=== PATIENT | male | born 1945 | race Caucasian/White ===

== ENCOUNTER → 2020-05-22 10:44 | Outpatient (BNVA) | payer MEDICARE, SELFPAY | PROVIDERS: PCP Internal Medicine; Referring Provider Internal Medicine; Visit Provider Nurse Practitioner Family | DX: I25.10 Atherosclerotic heart disease of native coronary artery without angina pectoris (principal); E78.5 Hyperlipidemia, unspecified; I49.3 Ventricular premature depolarization; Z95.1 Presence of aortocoronary bypass graft; Z79.82 Long term (current) use of aspirin | CPT/HCPCS: 99214 ==

== ENCOUNTER 2020-05-28 08:30 | Outpatient (REF) | payer MEDICARE, SELFPAY ==
[2020-05-28 11:10] LABS: Cholesterol 135 mg/dL; HDL Cholesterol 34 mg/dL; LDL Cholesterol Calculated 81 mg/dl; Triglycerides 102 mg/dL
[2020-05-28 11:18] LABS: Alanine Aminotransferase 32 U/L (0-40); Anion Gap 16 (12-20); Aspartate Amino Transferase 23 U/L (5-37); Blood Urea Nitrogen 21 mg/dL (9-16); Carbon Dioxide 23 mmol/L (22-29); Chloride 104 mmol/L (96-108); Estimated Glomerular Filt Rate > 60; Glucose Random 143 mg/dL (60-115); Potassium 4.6 mmol/l (3.3-5.1); Sodium 138 mmol/L (135-145)
== END 2020-05-28 08:31 | disposition home or self-care (01) ==
LOC: HO.LAB 08:30
PROVIDERS: PCP Internal Medicine; Visit Provider Nurse Practitioner Family
DX: E11.9 Type 2 diabetes mellitus without complications (principal)
CPT/HCPCS: 80048; 80061; 84450; 84460

== ENCOUNTER 2020-06-16 08:45 | Outpatient (REF) | payer MEDICARE, SELFPAY ==
[2020-06-16 12:10] LABS: Alanine Aminotransferase 30 U/L (0-40); Albumin Level 4.2 g/dL (3.5-5.0); Alkaline Phosphatase 87 U/L (39-117); Anion Gap 13 (12-20); Aspartate Amino Transferase 21 U/L (5-37); Bilirubin Total 0.7 mg/dL (0.0-1.0); Blood Urea Nitrogen 26 mg/dL (9-16); Calcium 9.1 mg/dL (8.4-10.2); Carbon Dioxide 24 mmol/L (22-29); Chloride 104 mmol/L (96-108); Cholesterol 137 mg/dL; Estimated Glomerular Filt Rate > 60; Glucose Fasting 170 mg/dL (60-99); HDL Cholesterol 31 mg/dL; LDL Cholesterol Calculated 83 mg/dl; Potassium 4.3 mmol/l (3.3-5.1); Sodium 137 mmol/L (135-145); Triglycerides 115 mg/dL
== END 2020-06-16 08:46 | disposition home or self-care (01) ==
LOC: HO.WFDLDS 08:45
PROVIDERS: Visit Provider Internal Medicine
DX: E11.9 Type 2 diabetes mellitus without complications (principal)
CPT/HCPCS: 80053; 80061

== ENCOUNTER → 2020-10-08 10:36 | Outpatient (BNVA) | payer MEDICARE, SELFPAY | PROVIDERS: PCP Internal Medicine; Visit Provider Surgery | DX: Z85.038 Personal history of other malignant neoplasm of large intestine (principal); Z86.010 Personal history of colon polyps | CPT/HCPCS: 99212 ==

== ENCOUNTER 2020-10-14 09:55 | Outpatient (REF) | payer MEDICARE, SELFPAY ==
[2020-10-14 10:41] LABS: MANUAL DIFF FLAG NO
[2020-10-14 10:53] LABS: Basophils Absolute Auto 0.1 X10*3/uL (0.0-0.2); Basophils Percent Auto 0.5 % (0-2); Eosinophils Absolute Auto 0.2 X10*3/uL (0.0-0.4); Eosinophils Percent Auto 2.1 % (0-4); Hemoglobin 16.5 g/dl (14.0-18.0); Imm Gran Abs Auto 0.03 X10*3/uL (0.00-0.03); Imm Gran Pct Auto 0.3 % (0.0-0.4); Lymphocytes Absolute Auto 1.9 X10*3/uL (1.2-4.9); Lymphocytes Percent Auto 20.3 % (20-40); Mean Corpuscular HGB Conc 33.7 g/dl (31.0-36.0); Mean Corpuscular Hemoglobin 30.6 pg (27.0-33.0); Mean Corpuscular Volume 90.9 fL (80-98); Mean Platelet Volume 10.2 fL (9.4-12.4); Monocytes Absolute Auto 0.8 X10*3/uL (0.1-1.2); Monocytes Percent Auto 8.5 % (2-11); Neutrophils Absolute Auto 6.3 X10*3/uL (2.0-8.3); Neutrophils Percent Auto 68.3 % (45-73); Platelet Count 230 X10*3/uL (160-400); Red Blood Count 5.39 X10*6/uL (4.60-5.80); Red Cell Distribution Width 12.8 % (11.0-16.0); White Blood Count 9.2 X10*3/uL (4.8-10.8)
[2020-10-14 10:56] LABS: Estimated Average Glucose 229 mg/dL; Hemoglobin A1c % 9.6 %
[2020-10-14 11:32] LABS: Alanine Aminotransferase 40 U/L (0-40); Albumin Level 4.2 g/dL (3.5-5.0); Alkaline Phosphatase 102 U/L (39-117); Anion Gap 12 (12-20); Aspartate Amino Transferase 26 U/L (5-37); Bilirubin Total 1.1 mg/dL (0.0-1.0); Blood Urea Nitrogen 19 mg/dL (9-16); Calcium 9.6 mg/dL (8.4-10.2); Carbon Dioxide 28 mmol/L (22-29); Chloride 102 mmol/L (96-108); Cholesterol 159 mg/dL; Estimated Glomerular Filt Rate > 60; Glucose Fasting 179 mg/dL (60-99); HDL Cholesterol 33 mg/dL; LDL Cholesterol Calculated 98 mg/dl; Potassium 5.1 mmol/L (3.3-5.1); Sodium 137 mmol/L (135-145); Total Protein 7.3 g/dL (6.5-8.0); Triglycerides 141 mg/dL
== END 2020-10-14 09:56 | disposition home or self-care (01) ==
LOC: HO.LAB 09:55
PROVIDERS: Absent Provider Internal Medicine Medical Oncology; PCP Internal Medicine; Visit Provider Internal Medicine
DX: C18.9 Malignant neoplasm of colon, unspecified (principal)
CPT/HCPCS: 36415; 80053; 80061; 83036; 85025

== ENCOUNTER 2020-10-31 07:24 | Day surgery (SDC) | payer MEDICARE, SELFPAY ==
[2020-10-27 13:46] VITALS: BMI 34.2
--- NOTE | 2020-10-30 08:49 | HO.ANESPROP2 ---
HPI - Anesthesia Eval Consult details Narrative: 75yo M for Colonoscopy. Signif cardiac hx. Saw Cardiology for routine visit 05/2020. Stable - no anginal sounding symptoms, good activity tolerance. Stable with f/u in 1 year. H/O colectomy with ostomy and reversal PMFSH Active Problems Active Problems: All Active Problems (Updated 10/27/20 @ 13:52 by Aletha Pratt) Diabetes mellitus (Acute) History of colon cancer (Acute) Glucose intolerance (Acute) Hx of CABG (Acute ~1998) HLD (hyperlipidemia) (Acute) PVC (premature ventricular contraction) (Acute) SVT (supraventricular tachycardia) (Acute) CAD (coronary artery disease) (Acute) Past Medical History Medical History CAD (coronary artery disease) Cardiomyopathy COVID-19 COVID-19 vaccine administered Diabetes mellitus Glucose intolerance History of colon cancer HLD (hyperlipidemia) Hx of cataract PVC (premature ventricular contraction) SVT (supraventricular tachycardia) Family History Family History Father Cancer, colon Mother Cancer of breast Cancer of lung Brother Cancer Surgical History Surgical History History of colostomy reversal Hx of CABG (~1998) Hx of cataract surgery Hx of colectomy Hx of colonoscopy (~2005) Hx of colostomy Hx of hernia repair (~2011) Hx of knee surgery Hx of repair of rotator cuff (~2007) Hx of tonsillectomy Social History Social History Alcohol intake: current Alcohol intake frequency: 0-2 drinks per day Smoking Status: Never smoker Meds Allergies Allergy/AdvReac Type Severity Reaction Status Date / Time BERNABE Inhibitors Allergy Unknown DEPRESSION Verified 10/24/20 14:12 [BERNABE INHIBITORS] latex [LATEX] Allergy Unknown RASH Verified 10/24/20 14:12 pravastatin [Pravachol] Allergy Unknown unknown Verified 10/24/20 14:12 rosuvastatin [Crestor] Allergy Unknown unknown Verified 10/24/20 14:12 Beta-Blockers AdvReac Mild DECREASED Verified 10/24/20 14:12 (Beta-Adrenergic Bloc HR, [BETA-BLOCKERS DEPRESSION (BETA-ADRENERGIC BLOC] amoxicillin Allergy Unknown hives, Uncoded 05/29/19 00:00 swollen lips, and hoarseness cephlex: levofloxacin Allergy Unknown hives, Uncoded 05/29/19 00:00 swollen lips, and hoarseness clindomycin Allergy Unknown hives, Uncoded 05/29/19 00:00 swollen lips, and hoarseness Home Medications Medication Instructions Recorded Confirmed Last Taken Type aspirin 81 mg tablet,delayed 81 mg PO DAILY 05/22/20 10/27/20 10/27/20 History release atorvastatin 40 mg tablet See Rx Instructions PO DAILY 05/22/20 10/27/20 Unknown History diphenhydramine HCl 25 mg tablet 25 mg PO TID PRN 05/22/20 10/27/20 Unknown History fluticasone propionate 50 1 spray INTRANASAL DAILY 05/22/20 10/27/20 Unknown History mcg/actuation nasal spray,suspension metformin 1 tab PO BID 10/31/20 10/31/20 Unknown History metformin 1 tab PO BID 10/31/20 10/31/20 10/30/20 History Exam Exam Date and Time: October 30, 2020 0849 Height,Weight and Vital Signs: Height 5 ft 9 in Weight 105.233 kg Pertinent Lab Results Pertinent Lab Results: Laboratory Tests 10/14/20 10/14/20 10:10 10:10 WBC 9.2 Hgb 16.5 Hct 49.0 Plt Count 230 Sodium 137 Potassium 5.1 Chloride 102 Carbon Dioxide 28 BUN 19 H Creatinine 1.14 Narrative Narrative: EKG 05/2020 SR, nonspecific T wave abn, fusion complex, rate 73, QTc 442ms Echo 2018 EF 55-60%, mild aortic calcification, no stenosis, grade I diastolic dysfunction Assessment and Plan Assessment Anesthesia Assessment: Chart Reviewed
[2020-10-31 07:41] VITALS: BP 107/74; PULSE 76; RESP 18; TEMP 36.1; O2SAT 96
[2020-10-31 07:47] LABS: Glucose, Whole Blood 141 mg/dL (60-115)
[2020-10-31] MEDS: Lactated Ringers 1,000 ML 50 ML IV (07:54)
--- NOTE | 2020-10-31 08:55 | HO.ANESPROP2 ---
[facility] Active Problems Active Problems: All Active Problems (Updated 10/30/20 @ 08:51 by Pennie Tripathi) Diabetes mellitus (Acute) History of colon cancer (Acute) Glucose intolerance (Acute) Hx of CABG (Acute ~1998) HLD (hyperlipidemia) (Acute) PVC (premature ventricular contraction) (Acute) SVT (supraventricular tachycardia) (Acute) CAD (coronary artery disease) (Acute) Past Medical History Medical History CAD (coronary artery disease) Cardiomyopathy COVID-19 COVID-19 vaccine administered Diabetes mellitus Glucose intolerance History of colon cancer HLD (hyperlipidemia) Hx of cataract PVC (premature ventricular contraction) SVT (supraventricular tachycardia) Family History Family History Father Cancer, colon Mother Cancer of breast Cancer of lung Brother Cancer Surgical History Surgical History History of colostomy reversal Hx of CABG (~1998) Hx of cataract surgery Hx of colectomy Hx of colonoscopy (~2005) Hx of colostomy Hx of hernia repair (~2011) Hx of knee surgery Hx of repair of rotator cuff (~2007) Hx of tonsillectomy Social History Social History Alcohol intake: current Alcohol intake frequency: 0-2 drinks per day Smoking Status: Never smoker Advance Directives Information Provided: No Meds Allergies Allergy/AdvReac Type Severity Reaction Status Date / Time BERNABE Inhibitors Allergy Unknown DEPRESSION Verified 10/24/20 14:12 [BERNABE INHIBITORS] latex [LATEX] Allergy Unknown RASH Verified 10/24/20 14:12 pravastatin [Pravachol] Allergy Unknown unknown Verified 10/24/20 14:12 rosuvastatin [Crestor] Allergy Unknown unknown Verified 10/24/20 14:12 Beta-Blockers AdvReac Mild DECREASED Verified 10/24/20 14:12 (Beta-Adrenergic Bloc HR, [BETA-BLOCKERS DEPRESSION (BETA-ADRENERGIC BLOC] amoxicillin Allergy Unknown hives, Uncoded 05/29/19 00:00 swollen lips, and hoarseness cephlex: levofloxacin Allergy Unknown hives, Uncoded 05/29/19 00:00 swollen lips, and hoarseness clindomycin Allergy Unknown hives, Uncoded 05/29/19 00:00 swollen lips, and hoarseness Active Medications: Current Medications Generic Name Dose Route Start Last Admin Trade Name Domenico PRN Reason Stop Dose Admin Lactated Ringer's 1,000 mls @ 50 mls/hr 10/31/20 07:00 10/31/20 07:54 Lr IV 50 mls/hr .Q20H TRA Administration Home Medications Medication Instructions Recorded Confirmed Last Taken Type aspirin 81 mg tablet,delayed 81 mg PO DAILY 05/22/20 10/27/20 10/27/20 History release atorvastatin 40 mg tablet See Rx Instructions PO DAILY 05/22/20 10/27/20 Unknown History diphenhydramine HCl 25 mg tablet 25 mg PO TID PRN 05/22/20 10/27/20 Unknown History fluticasone propionate 50 1 spray INTRANASAL DAILY 05/22/20 10/27/20 Unknown History mcg/actuation nasal spray,suspension metformin 1 tab PO BID 10/31/20 10/31/20 Unknown History metformin 1 tab PO BID 10/31/20 10/31/20 10/30/20 History Exam Exam Date and Time: October 31, 2020 0855 Height,Weight and Vital Signs: Height 5 ft 9 in Weight 105.233 kg Last Vital Signs Temp 97 F 10/31/20 07:41 Pulse 76 10/31/20 07:41 Resp 18 10/31/20 07:41 BP 107/74 10/31/20 07:41 Pulse Ox 96 10/31/20 07:41 Pertinent Lab Results Pertinent Lab Results: Laboratory Tests 10/31/20 07:36 POC Glucose 141 H Airway Mallampati Class: II TM Dist: >3cm Neck ROM: Full Assessment and Plan Assessment Anesthesia Assessment: Anesthesia Plan Discussed and Chart Reviewed Final Anesthetic Review NPO: Yes ASA Class: II Final Preanesthetic Review: No Changes in Pt Med Stat, Meds/Allgs Chart Reviewed, Consent Obtained/Reviewed and Anes Risks/Benef Reviewed Patient Risk: Low Procedure Risk: Low Assessment/Block/Sedation in SS: Assess/Block/Sedation-SS Anesthetic Plan Anesthetic Plan: MAC: Disposition: Standard PACU
--- NOTE | 2020-10-31 09:11 | W.PM.OPN ---
Operative Note Operative Note Date of Service: 10/31/20 Narrative: Preop diagnosis: Colon cancer screening Postop diagnosis: 1. Small polyp, about 2 through 3 mm, in the right colon removed with cold forceps 2. Polyp, about 5 mm in the hepatic flexure removed with hot polypectomy snare 3. Diverticulosis of the sigmoid and left colon, mild Procedure: Colonoscopy with polypectomy using cold forceps x1 and polypectomy with hot snare x1 Surgeon: Tony Pedro MD The patient is a 75-year-old male who had a colonoscopy in 2018 for screening but had suboptimal bowel prep then. I had recommended a follow-up colonoscopy in a short interval. He understood the technique of the procedure and was aware of the risks, benefits, and alternatives. He was brought to the operative room placed in left lateral decubitus position under monitored anesthesia care. A surgical time-out was done. A full digital rectal was done. There were no palpable in canal lesions. The tip of the Olympus colonoscope was gently introduced through the anal orifice advanced with insufflation all with cecum. The cecum was intubated the cecum identified by visualization of the ileocecal valve as well as appendiceal orifice. The cecal mucosa was unremarkable. We then carefully withdrew the scope with careful examination of the entire colonic mucosa being done with scope withdrawal. The patient had good bowel prep this time and it was unlikely that any lesion have been missed. There was note of a small polyp about 2-3 mm in the mid part of the right colon. This was removed using cold forceps. There was another polyp about 5 mm in size, at the hepatic flexure. This was removed using hot snare. There was some difficulty encountered with removing this because of the location being in the flexure which caused some difficulty achieving an ideal angle for the snare. However we were able to remove this and this was retrieved.. There was note of mild diverticulitis of left colon sigmoid. The rest of the rectum and anal canal including the shelf were unremarkable and there were no other lesions seen. The scope was then withdrawn completely with dessuflation. The patient tolerated the procedure well. There were no complications noted. Blood loss was less than 1 cc. The patient was transferred to the recovery room with stable vital signs. Depending on the path report, I would recommend another colonoscopy in the next 5 years. This will also depend on his health at that time
[2020-10-31 09:16] VITALS: BP 105/62; PULSE 60; RESP 16; TEMP 36.1; O2SAT 90
--- NOTE | 2020-10-31 09:17 | PM.OP ---
Brief Operative Note Date of Service: 10/31/20 Pre-op diagnosis: Screening colonoscopy Procedure: Polyps and diverticulosis Surgeon: Tony Pedro MD Anesthesia: MAC Estimated blood loss (mL): 1 Pathology: other (Polyps x2) Condition: stable Disposition: PACU
[2020-10-31 09:20] VITALS: O2SAT 95
[2020-10-31 09:31] VITALS: BP 127/89; PULSE 65; RESP 17; TEMP 36.3; O2SAT 95
== END 2020-10-31 10:15 | disposition home or self-care (01) ==
PROVIDERS: PCP Internal Medicine; Visit Provider Surgery
PROC: 0DJD8ZZ Inspection of Lower Intestinal Tract, Via Natural or Artificial Opening Endoscopic (ICD-10-PCS; CPT 45378; principal; 2020-10-31 08:30)
DX: Z12.11 Encounter for screening for malignant neoplasm of colon (principal); Z85.038 Personal history of other malignant neoplasm of large intestine; Z80.0 Family history of malignant neoplasm of digestive organs; Z90.49 Acquired absence of other specified parts of digestive tract; D12.2 Benign neoplasm of ascending colon; D12.3 Benign neoplasm of transverse colon; K57.32 Diverticulitis of large intestine without perforation or abscess without bleeding; I25.10 Atherosclerotic heart disease of native coronary artery without angina pectoris; Z95.1 Presence of aortocoronary bypass graft; E11.9 Type 2 diabetes mellitus without complications; Z79.84 Long term (current) use of oral hypoglycemic drugs; Z79.82 Long term (current) use of aspirin; Z86.16 Personal history of COVID-19; Z91.040 Latex allergy status; Z88.1 Allergy status to other antibiotic agents; Z88.8 Allergy status to other drugs, medicaments and biological substances; Z79.899 Other long term (current) drug therapy
CPT/HCPCS: 45385; 45380; 82947; 88305

== ENCOUNTER → 2020-11-13 09:50 | Outpatient (BNVA) | payer MEDICARE, SELFPAY | PROVIDERS: PCP Internal Medicine; Visit Provider Surgery | DX: D12.6 Benign neoplasm of colon, unspecified (principal); Z85.038 Personal history of other malignant neoplasm of large intestine | CPT/HCPCS: 99212 ==

== ENCOUNTER 2020-12-10 07:53 | Outpatient (REF) | payer MEDICARE, SELFPAY ==
[2020-12-10 11:13] LABS: Estimated Average Glucose 163 mg/dL; Hemoglobin A1c % 7.3 %
[2020-12-10 11:22] LABS: Alanine Aminotransferase 26 U/L (0-40); Albumin Level 4.3 g/dL (3.5-5.0); Alkaline Phosphatase 90 U/L (39-117); Anion Gap 12 (12-20); Aspartate Amino Transferase 19 U/L (5-37); Blood Urea Nitrogen 20 mg/dL (9-16); Calcium 9.6 mg/dL (8.4-10.2); Carbon Dioxide 28 mmol/L (22-29); Chloride 103 mmol/L (96-108); Cholesterol 152 mg/dL; Estimated Glomerular Filt Rate > 60; Glucose Fasting 128 mg/dL (60-99); HDL Cholesterol 32 mg/dL; LDL Cholesterol Calculated 97 mg/dl; Potassium 4.9 mmol/L (3.3-5.1); Sodium 138 mmol/L (135-145); Total Protein 7.2 g/dL (6.5-8.0); Triglycerides 119 mg/dL
== END 2020-12-10 07:54 | disposition home or self-care (01) ==
LOC: HO.WFDLDS 07:53
PROVIDERS: Visit Provider Internal Medicine
DX: E11.9 Type 2 diabetes mellitus without complications (principal)
CPT/HCPCS: 36415; 80053; 80061; 83036

== ENCOUNTER 2021-03-11 07:59 | Outpatient (REF) | payer MEDICARE, SELFPAY ==
[2021-03-11 09:11] LABS: Estimated Average Glucose 148 mg/dL; Hemoglobin A1c % 6.8 %
[2021-03-11 09:43] LABS: Cholesterol 128 mg/dL; Glucose Fasting 109 mg/dL (60-99); HDL Cholesterol 38 mg/dL; LDL Cholesterol Calculated 78 mg/dl; Triglycerides 61 mg/dL
[2021-03-11 10:03] LABS: SARS COV2 IgG Negative (Negative)
== END 2021-03-11 08:00 | disposition home or self-care (01) ==
LOC: HO.LAB 07:59
PROVIDERS: PCP Internal Medicine; Visit Provider Internal Medicine
DX: E11.65 Type 2 diabetes mellitus with hyperglycemia (principal); Z01.84 Encounter for antibody response examination; Z86.16 Personal history of COVID-19
CPT/HCPCS: 36415; 80061; 82947; 83036; 86769

== ENCOUNTER → 2021-05-25 09:21 | Outpatient (BNVA) | payer MEDICARE, SELFPAY | PROVIDERS: PCP Internal Medicine; Referring Provider Internal Medicine; Visit Provider Internal Medicine Cardiovascular Disease | DX: I25.10 Atherosclerotic heart disease of native coronary artery without angina pectoris (principal); I47.1 Supraventricular tachycardia; R06.02 Shortness of breath | CPT/HCPCS: 93005; 99212 ==

== ENCOUNTER → 2021-05-29 09:13 | Outpatient (REF) | payer MEDICARE, SELFPAY ==
--- NOTE | ~2021-05-29 | NM_ITS ---
Myocardial perfusion study Indication: Exertional shortness of breath and chest discomfort to evaluate for myocardial ischemia Technique: The patient was brought in for a Lexiscan perfusion study on 05/29/2021. Patient performed low-level exercise and was injected 0.4 mg of Lexiscan intravenously. Within a minute of injection, 35 mCi of sestamibi was given intravenously. Images were obtained using the SPECT gamma camera interlaced with the gating device. Images were obtained in supine position. Resting perfusion study was performed on 06/02/2021. Patient was administered 35 mCi of sestamibi intravenously at rest. Images were then obtained in supine position. Images obtained with and without CT attenuation. Total DLP 112 mGy-cm. Images were processed with the software and compared side to side in short axis, horizontal long axis and vertical long axis views. Findings: The stress perfusion study showed nonattenuated images show mildly reduced uptake in the basal and mid inferior wall as well as basal inferolateral wall of the LV myocardium. Remainder of the LV myocardium is normally. Attenuation corrected images show mildly reduced uptake in the basal lateral wall of the LV myocardium.. The gated study shows low normal LV systolic function with calculated LVEF of 51%. LV cavity is mildly dilated size. The gated study shows overall normal wall thickening and contraction of all segments except maybe small area of mild hypokinesis of the basal inferior wall. Resting study shows nonattenuated images show normal uptake of radiotracer in all segments of LV myocardium. Gating at rest reveals normal wall motion with ejection fraction at 53%. The findings are consistent with mild intensity basal and mid inferior and basal inferolateral wall reversible defect in the. NM/NM cardiolite stress test Impression: 1. Myocardial perfusion imaging study shows basal and mid inferior and basal inferolateral ischemia with mild intensity 2. Gated LVEF is 51% 3. Transient ischemic dilatation not present EKG is nondiagnostic for ischemia
--- NOTE | 2021-05-29 09:18 | CA_ITS ---
Acquisition Time: 2021-05-29 09:27:23 Total Exercise Time: 00:04:00 Test Indications: Chest Pain, SOB Medications: Protocol: FELECIA Max HR: 088 BPM 60% of Pred: 146 BPM Max BP: 144/070 mmHG Max Work Load: 5.8 METS Exercise stress test with exercise 4 min of Felecia protocol, with moderate shortness of breath, mild pressure left chest and fatigue. Treadmill placed in recovery and slowed to 1 MPH 0% incline for additonal 2.5 min. Testing changed to a pharmacological stress test with lexiscan injection, without anginal symptoms, with PVCs and occassional ventricular cuplets, with normotensive response to injection, with nondiagnostic EKG for ischemia. In recovery he reported lightheadedness and was treated with Aminophyline 75mg IVP with resolution of symptom. Nuclear images pending. Test reviewed with Dr Ferraro. Referred By: Marquise Espinoza Overread By: JOSE CHANG
== END ==
LOC: HO.CARD 09:13
PROVIDERS: PCP Internal Medicine; Visit Provider Internal Medicine Cardiovascular Disease
DX: R07.9 Chest pain, unspecified (principal); R06.02 Shortness of breath
CPT/HCPCS: 78452; 93017; A9500; J0280; J2785

== ENCOUNTER → 2021-06-15 13:03 | Outpatient (BNVA) | payer MEDICARE, SELFPAY | PROVIDERS: PCP Internal Medicine; Referring Provider Internal Medicine; Visit Provider Internal Medicine Cardiovascular Disease | DX: R06.02 Shortness of breath (principal); I25.10 Atherosclerotic heart disease of native coronary artery without angina pectoris; I47.1 Supraventricular tachycardia; Z79.899 Other long term (current) drug therapy | CPT/HCPCS: 99212 ==

== ENCOUNTER 2021-06-18 09:15 | Outpatient (REF) | payer MEDICARE, SELFPAY ==
[2021-06-18 11:32] LABS: INTERNATIONAL NORM RATIO 1.1 (0.9-1.1); Prothrombin Time 12.1 SEC (9.9-13.0)
[2021-06-18 11:40] LABS: Estimated Average Glucose 140 mg/dL; Hemoglobin A1c % 6.5 %
[2021-06-18 11:41] LABS: Hematocrit 48.2 % (42.0-52.0); Hemoglobin 16.2 g/dl (14.0-18.0); Mean Corpuscular HGB Conc 33.6 g/dl (31.0-36.0); Mean Corpuscular Hemoglobin 31.2 pg (27.0-33.0); Mean Corpuscular Volume 92.7 fL (80.0-98.0); Mean Platelet Volume 9.8 fL (9.4-12.4); Platelet Count 237 X10*3/uL (160-400); Red Cell Distribution Width 12.8 % (11.0-16.0); White Blood Count 9.1 X10*3/uL (4.8-10.8)
[2021-06-18 12:00] LABS: Anion Gap 13 (12-20); Blood Urea Nitrogen 18 mg/dL (9-16); Calcium 9.5 mg/dL (8.4-10.2); Carbon Dioxide 24 mmol/L (22-29); Chloride 104 mmol/L (96-108); Estimated Glomerular Filt Rate > 60; Glucose Random 98 mg/dL (60-115); Potassium 4.4 mmol/L (3.3-5.1); Sodium 137 mmol/L (135-145)
== END 2021-06-18 09:16 | disposition home or self-care (01) ==
LOC: HO.LAB 09:15
PROVIDERS: PCP Internal Medicine; Visit Provider Internal Medicine Cardiovascular Disease
DX: E11.9 Type 2 diabetes mellitus without complications (principal); I25.10 Atherosclerotic heart disease of native coronary artery without angina pectoris
CPT/HCPCS: 36415; 80048; 83036; 85027; 85610

== ENCOUNTER → 2021-06-30 08:15 | Outpatient (REF) | payer MEDICARE, SELFPAY ==
--- NOTE | 2021-06-30 08:19 | CA_ITS ---
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 Mildly reduced LV systolic function with impaired relaxation filling pattern with regional wall motion abnormality of the basal inferior inferoseptal holman 2. Mildly dilated left atrium 3. Moderate mitral and calcification with trivial aortic regurgitation 4. Normal RV systolic pressure 5. No gross pericardial effu Findings Left Ventricle Normal left ventricular cavity size. There is normal left ventricular wall thickness. The left ventricular systolic function is mildly decreased. The visually estimated ejection fraction is between 45-50%. Spectral Doppler is indicative of an impaired relaxation filling pattern. Wall Motion Rest Echo Findings The basal inferior, basal inferoseptal, and basal inferolateral segments are hypokinetic. All other scored wall segments showed normal motion. Right Ventricle The right ventricle was not well visualized. Atria The left atrium is mildly dilated. Interatrial shunt cannot be excluded. The right atrium was not well visualized. Aortic Valve There is mild calcification of the aortic valve. There is no aortic valve stenosis. There is trace (trivial) aortic valve regurgitation. Mitral Valve There is mild anterior and moderate posterior mitral leaflet thickening. There is moderate mitral annular calcification. There is trace mitral valve regurgitation. There is no mitral valve stenosis. Pulmonic Valve The pulmonic valve was not well visualized. Tricuspid Valve Likely normal tricuspid valve structure and function. There is mild tricuspid valve regurgitation. The right ventricular systolic pressure is normal. The right ventricular systolic pressure is 19 mmHg. Normal right atrial pressure. There is no evidence of pulmonary hypertension. Great Vessels All visible segments of the aorta are normal in size. The pulmonary artery was not well visualized. Venous The inferior vena cava is normal in size and collapses greater than 50% with inspiration. Pericardium/Pleural There is no evidence of pericardial effusion. Prior Study Comparison Changes noted compared to prior study dated: 10/10/2018. LV systolic function is lower with regional wall motion abnormality Measurements 2D Linear Measurements IVSd: 1.07 0.6-0.9/0.6-1.0 cm LVIDd: 5.44 3.9-5.3/4.2-5.9 cm LVIDd Index: 2.85 2.4-3.2/2.2-3.1 cm/m2 LVIDs: 3.84 2.0-3.6 cm LVPWd: 0.96 0.7-1.1 cm Ao Root: 3.50 2.1-3.5 cm LA Diam: 4.30 2.7-3.8/3.0-4.0 cm LAIDs Index: 2.25 1.5-2.3 cm/m2 LV Mass: 265.73 67-162/88-224 g LV Mass Index: 139.13 43-95/49-115 g/m2 LVOT Diam: 2.30 3.0+(-)1.3 cm 2D Systolic Function EF 4C: 46.50 >55% EF 2C: 43.60 >55% EF BiP: 46.30 >55% Mitral Valve MV Pk E: 0.61 MV PK A: 0.77 MV Decel Time: 319.00 E/A: 0.80 E'Lateral: 9.03 E'Medial: 4.90 E/E' Med: 12.50 E/E' Lat: 6.80 PHT: 93.00 MVA PHT: 2.37 Decel Posey: 1.92 Aortic Valve AoV Pk Otoniel: 1.28 AoV Mn Otoniel: 0.91 AoV VTI: 0.32 AoV Pk Grad: 7.00 Aov Mn Grad: 4.00 NGHIA Cont.VTI: 2.46 LVOT LVOT Pk Otoniel: 0.74 LVOT Mn Otoniel: 0.51 LVOT VTI: 0.19 LVOT Pk Grad: 2.00 LVOT Mn Grad: 1.00 LVOT Diam: 2.30 LVOT Area: 4.15 Diastolic Function MV Pk E: 0.61 MV Pk A: 0.77 E/A: 0.80 E'Medial: 4.90 E/E' Med: 12.50 E' Laterial: 9.03 E/E' Lat: 6.80 Right Ventricle TAPSE (mm): 2.03 Tricuspid Valve TR Pk Otoniel: 2.01 TR Pk Grad: 16.00 RA Press: 3.00 RVSP: 19.00 Great Vessels Aorta Ao Root-2D: 3.50 2.0-3.7 cm Ao Asc: 3.50 2.1-3.4 cm Ao Arch: 3.00 Updated in Other Vendor System with Status of Final Marquise Espinoza MD electronically signed on 06/30/2021 2:53:00 PM with status of Final
== END ==
LOC: HO.CARD 08:15
PROVIDERS: Visit Provider Internal Medicine Cardiovascular Disease
DX: R06.02 Shortness of breath (principal)
CPT/HCPCS: 93306

== ENCOUNTER → 2021-07-16 08:09 | Outpatient (BNVA) | payer MEDICARE, SELFPAY | PROVIDERS: PCP Internal Medicine; Referring Provider Internal Medicine; Visit Provider Internal Medicine Cardiovascular Disease | DX: I47.1 Supraventricular tachycardia (principal); I25.10 Atherosclerotic heart disease of native coronary artery without angina pectoris; R06.02 Shortness of breath | CPT/HCPCS: 99212 ==

== ENCOUNTER → 2021-08-13 12:06 | Outpatient (BNVA) | payer MEDICARE, SELFPAY | PROVIDERS: PCP Internal Medicine; Referring Provider Internal Medicine; Visit Provider Internal Medicine Cardiovascular Disease | DX: I25.10 Atherosclerotic heart disease of native coronary artery without angina pectoris (principal); I47.1 Supraventricular tachycardia | CPT/HCPCS: 99212 ==

== ENCOUNTER 2021-09-08 08:53 | Outpatient (REF) | payer MEDICARE, SELFPAY ==
[2021-09-08 10:35] LABS: Estimated Average Glucose 151 mg/dL; Hemoglobin A1c % 6.9 %
[2021-09-08 11:10] LABS: Anion Gap 13 (12-20); Blood Urea Nitrogen 25 mg/dL (9-16); Calcium 9.3 mg/dL (8.4-10.2); Carbon Dioxide 23 mmol/L (22-29); Chloride 106 mmol/L (96-108); Cholesterol 135 mg/dL; Estimated Glomerular Filt Rate > 60; Glucose Fasting 125 mg/dL (60-99); HDL Cholesterol 35 mg/dL; LDL Cholesterol Calculated 77 mg/dl; Potassium 4.6 mmol/L (3.3-5.1); Sodium 137 mmol/L (135-145); Triglycerides 118 mg/dL
== END 2021-09-08 08:54 | disposition home or self-care (01) ==
LOC: HO.LAB 08:53
PROVIDERS: PCP Internal Medicine; Visit Provider Internal Medicine Cardiovascular Disease
DX: E11.65 Type 2 diabetes mellitus with hyperglycemia (principal)
CPT/HCPCS: 36415; 80048; 80061; 83036

== ENCOUNTER → 2021-10-26 12:12 | Outpatient (BNVA) | payer MEDICARE, SELFPAY | PROVIDERS: PCP Internal Medicine; Referring Provider Internal Medicine; Visit Provider Internal Medicine Cardiovascular Disease | DX: I25.10 Atherosclerotic heart disease of native coronary artery without angina pectoris (principal); I47.1 Supraventricular tachycardia | CPT/HCPCS: 99212 ==

== ENCOUNTER 2021-12-02 08:29 | Outpatient (REF) | payer MEDICARE, SELFPAY ==
[2021-12-02 08:57] LABS: COVID-19 Test Positive (Negative)
== END 2021-12-02 08:30 | disposition home or self-care (01) ==
LOC: HO.LAB 08:29
PROVIDERS: PCP Internal Medicine; Visit Provider Internal Medicine
DX: Z20.822 Contact with and (suspected) exposure to COVID-19 (principal)
CPT/HCPCS: 87635; C9803

== ENCOUNTER 2021-12-28 11:56 | Outpatient (REF) | payer MEDICARE, SELFPAY ==
--- NOTE | ~2021-12-28 | XR_ITS ---
EXAMINATION: XR CHEST CLINICAL INFORMATION: Shortness of breath COMPARISON: Previous chest x-ray most recent June 2017 TECHNIQUE: 2 views of the chest were obtained. FINDINGS: The cardiac and mediastinal contours are stable. There are post-CABG changes. The lungs are clear. There is no pleural effusion or pneumothorax. There are degenerative changes of the spine. There are postsurgical changes to the right shoulder. XR/XR chest 2V IMPRESSION: No evidence for acute disease in the chest.
== END 2021-12-28 11:57 | disposition home or self-care (01) ==
LOC: HO.XRAY 11:56
PROVIDERS: PCP Internal Medicine; Visit Provider Internal Medicine
DX: R06.02 Shortness of breath (principal)
CPT/HCPCS: 71046

== ENCOUNTER 2022-01-11 09:06 | Outpatient (REF) | payer MEDICARE, SELFPAY ==
[2022-01-11 11:30] LABS: Estimated Average Glucose 183 mg/dL
[2022-01-11 11:55] LABS: Cholesterol 113 mg/dL; Glucose Fasting 123 mg/dL (60-99); HDL Cholesterol 30 mg/dL; LDL Cholesterol Calculated 69 mg/dl; Triglycerides 72 mg/dL
== END 2022-01-11 09:07 | disposition home or self-care (01) ==
LOC: HO.WFDLDS 09:06
PROVIDERS: Visit Provider Internal Medicine
DX: Z00.00 Encounter for general adult medical examination without abnormal findings (principal); E11.65 Type 2 diabetes mellitus with hyperglycemia
CPT/HCPCS: 36415; 80061; 82947; 83036

== ENCOUNTER 2022-03-25 09:46 | Outpatient (REF) | payer MEDICARE, SELFPAY ==
[2022-03-25 10:56] LABS: Estimated Average Glucose 157 mg/dL; Hemoglobin A1c % 7.1 %
[2022-03-25 11:06] LABS: Cholesterol 157 mg/dL; Glucose Fasting 118 mg/dL (60-99); HDL Cholesterol 41 mg/dL; LDL Cholesterol Calculated 102 mg/dl; Triglycerides 71 mg/dL
== END 2022-03-25 09:47 | disposition home or self-care (01) ==
LOC: HO.WFDLDS 09:46
PROVIDERS: PCP Internal Medicine; Visit Provider Internal Medicine Cardiovascular Disease
DX: E11.65 Type 2 diabetes mellitus with hyperglycemia (principal)
CPT/HCPCS: 36415; 80061; 82947; 83036

== ENCOUNTER → 2022-05-03 15:01 | Outpatient (BNVA) | payer MEDICARE, SELFPAY | PROVIDERS: PCP Internal Medicine; Referring Provider Internal Medicine; Visit Provider Internal Medicine Cardiovascular Disease | DX: I47.1 Supraventricular tachycardia (principal); I25.10 Atherosclerotic heart disease of native coronary artery without angina pectoris | CPT/HCPCS: 93005; 99212 ==

== ENCOUNTER → 2022-05-12 10:13 | Outpatient (REF) | payer MEDICARE, SELFPAY ==
--- NOTE | 2022-05-12 10:17 | CA_ITS ---
Acquisition Time: 2022-05-12 10:27:44 Total Exercise Time: 00:04:04 Test Indications: OTHER FATIGUE, PVC'S, SVT Medications: Protocol: ARI Max HR: 102 BPM 70% of Pred: 145 BPM Max BP: 168/076 mmHG Max Work Load: 5.8 METS Exercise stress test with exercise 4 min 4 sec of Ari protocol, with moderate sob and request to stop, no chest discomfort, with frequent isolated multifocal PVCs, occassional cuplet and one triplet, with heart rate 68 ( 46% MPHR) at baseline and clarissa to heart rate 98 ( 67% MPHR), with normotensive response to exercise, with nondiagnostic EKG for ischemia due to suboptimal heart rate. In recovery his breathing normalized. Test reviewed with Dr Espinoza Referred By: Marquise Espinoza Overread By: JOSE CHANG
== END ==
LOC: HO.CARD 10:13
PROVIDERS: Visit Provider Internal Medicine Cardiovascular Disease
DX: R53.83 Other fatigue (principal)
CPT/HCPCS: 93017

== ENCOUNTER 2022-05-21 07:38 | Outpatient (REF) | payer MEDICARE, SELFPAY ==
--- NOTE | ~2022-05-21 | CT_ITS ---
EXAMINATION: CT SINUS WITHOUT CONTRAST CLINICAL INFORMATION: 77-year-old with chronic sinusitis. COMPARISON: None TECHNIQUE: Volumetric CT of the paranasal sinuses was done with 2-D multiplanar reformatted reconstructions. This CT examination was performed using dose optimization techniques as appropriate, variously including the following: *Automated exposure control *Adjustment of mA and/or kV according to patient size (this includes techniques or standardized protocols for targeted exams where dose is matched to indication/reason for exam; i.e. extremities or head) *Use of iterative reconstruction technique DLP: 97 mGy-cm FINDINGS: Nasal Cavity: Mild sinusoidal nasal septal deviation is noted. The olfactory recesses are clear. Small lamellar stephen in the left middle turbinate. No discrete nasal cavity masses. Visualized nasopharyngeal soft tissues appear symmetric and normal in attenuation. Maxillary Sinuses: Well-pneumatized with minor mucosal thickening in the left maxillary sinus with bilaterally patent OMCs without air-fluid levels. Bony holman are grossly intact. Ethmoid Sinuses: Largely unopacified, with intact bony holman. Frontal Sinuses: Well-pneumatized and predominantly clear with bilaterally patent frontal recesses and frontonasal drainage. Tiny focus of mucosal thickening in the left frontal recess. Sphenoid Sinus: Asymmetric but well pneumatized with the right side being much larger than the left and minor degrees of mucosal thickening along the anterior holman with bilaterally patent sphenoid ostia and sphenoethmoidal recesses. The carotid canals are posterolateral and covered by bone. Bilateral carotid calcifications of the carotid siphons are noted. Additional Findings: The mastoids and middle ear cavities are unopacified. Limited assessment of the visualized intracranial and intraorbital soft tissue structures demonstrates no acute process within the limitations of the study. Bilateral lens extractions are noted. CT/CT sinus wo IV con IMPRESSION: 1. Mild sinusoidal nasal septal deviation. No nasal cavity masses are identified. 2. Minor degrees of scattered mucosal thickening in the left maxillary and sphenoid sinuses and left frontal recess. Otherwise no significant sinonasal inflammatory disease or soft tissue mass. 3. Atheromatous calcifications of the left vertebral artery and both ICAs.
== END 2022-05-21 07:39 | disposition home or self-care (01) ==
LOC: HO.CT 07:38
PROVIDERS: Visit Provider Internal Medicine
DX: J32.9 Chronic sinusitis, unspecified (principal)
CPT/HCPCS: 70486

== ENCOUNTER → 2022-05-28 08:44 | Outpatient (BNVA) | payer MEDICARE, SELFPAY | PROVIDERS: PCP Internal Medicine; Visit Provider Surgery | DX: I45.89 Other specified conduction disorders (principal); E11.9 Type 2 diabetes mellitus without complications | CPT/HCPCS: 99202 ==

== ENCOUNTER 2022-06-18 10:19 | Inpatient (IN) | payer MEDICARE, SELFPAY ==
[2022-06-14 10:48] VITALS: BMI 32.6
[2022-06-14 11:36] VITALS: BMI 32.5
--- NOTE | 2022-06-16 10:49 | HO.ANESPROP2 ---
Documented by User: Pennie Tripathi NP 06/16/22 10:59 HPI - Anesthesia Eval Consult details Narrative: 77yo M for ?normal sinus rhythm with normal EKG [facility] Active Problems Active Problems: All Active Problems (Updated 05/28/22 @ 11:39 by Warren Browning MD) Chronotropic incompetence (Acute) BPH (benign prostatic hyperplasia) (Acute) History of colon cancer (Acute ~2010) Tubular adenoma of colon (Acute) CAD (coronary artery disease) (Acute) SVT (supraventricular tachycardia) (Acute) PVC (premature ventricular contraction) (Acute) Hypertension (Acute) Hyperlipidemia associated with type 2 diabetes mellitus (Acute) Diabetes mellitus (Acute) SOB (shortness of breath) on exertion (Acute) Cough (Acute) Right leg pain (Acute) Obesity (Acute) Cellulitis of nose (Acute) Past Medical History Medical History BPH (benign prostatic hyperplasia) CAD (coronary artery disease) Cardiomyopathy COVID-19 vaccine administered Diabetes mellitus History of colon cancer (~2010) History of COVID-19 Hyperlipidemia associated with type 2 diabetes mellitus Hypertension Obesity PVC (premature ventricular contraction) SVT (supraventricular tachycardia) Tubular adenoma of colon Family History Family History Father Cancer, colon Mother Cancer of breast Cancer of lung Sister Cancer Surgical History Surgical History History of cardiac cath History of cataract surgery (~2013) History of colonoscopy History of colostomy (~2010) History of colostomy reversal (~2011) History of coronary artery bypass graft x 3 (~1998) History of hernia repair (~2012) History of left knee surgery (~2003) History of partial colectomy (~2011) History of repair of rotator cuff History of right knee surgery History of tonsillectomy Social History Social History Housing: House Are you a primary dog day care attendant to a significant other at home: No Do you presently have visiting nurse or other home services: No Alcohol intake: current Alcohol intake frequency: 0-2 drinks per day Patient Tobacco Use Status: Never used Tobacco e-Cigarette/Vaping Use: Never Used Second Hand Smoke Exposure: No Have you been hit, kicked, punched, or otherwise hurt by someone within the past year? If so, by whom?: No Are you DNR?: No Advance Directives: No Advance Directives Information Provided: Yes Advance Directives on File: No Recently lost weight without trying: No Nutrition Risks: Surgical patient >75years Poor oral hygiene: No (partial lower) service: No Current occupational status: retired Cognitive needs: No Hearing needs: No Vision needs: No Meds Allergies Allergy/AdvReac Type Severity Reaction Status Date / Time BERNABE Inhibitors Allergy Intermediate DEPRESSION Verified 06/18/22 06:20 [BERNABE INHIBITORS] latex [LATEX] Allergy Intermediate RASH Verified 06/18/22 06:20 terazosin Allergy Intermediate hives, Verified 06/18/22 06:20 swollen lips and hoarseness pravastatin [Pravachol] Allergy Unknown unknown Verified 06/18/22 06:20 bee pollen [bee stings] AdvReac Severe Anaphylaxis Verified 06/18/22 06:20 Beta-Blockers AdvReac Intermediate DECREASED Verified 06/18/22 06:20 (Beta-Adrenergic Bloc HR, [BETA-BLOCKERS DEPRESSION (BETA-ADRENERGIC BLOC] amoxicillin Allergy Intermediate hives, Uncoded 06/18/22 06:20 swollen lips, and hoarseness cephlex: levofloxacin Allergy Intermediate hives, Uncoded 06/18/22 06:20 swollen lips, and hoarseness clindomycin Allergy Intermediate hives, Uncoded 06/18/22 06:20 swollen lips, and hoarseness Home Medications Medication Instructions Recorded Confirmed Last Taken Type aspirin 81 mg tablet,delayed 81 mg PO DAILY 05/22/20 06/14/22 06/16/22 History release (Adult Low Dose Aspirin) diphenhydramine HCl 25 mg tablet 25 mg PO TID PRN Anxiety 05/22/20 06/18/22 Unknown History (Benadryl Allergy) fluticasone propionate 50 1 spray intranasal DAILY 05/22/20 06/14/22 Unknown History mcg/actuation nasal spray,suspension (Flonase Allergy Relief) nitroglycerin 0.4 mg sublingual 0.4 mg sublingual Q5M PRN Chest 05/03/22 06/14/22 Unknown History tablet Pain Epi E-Z Pen 06/14/22 06/14/22 Unknown History finasteride 5 mg tablet 1 tab PO DAILY 06/14/22 06/14/22 Unknown History Exam Exam Date and Time: June 16, 2022 1049 Height,Weight and Vital Signs: Height 5 ft 9 in Weight 99.79 kg Narrative Narrative: EKG 04/2022 ?normal sinus rhythm with normal EKG Exercise Stress 05/2022 Protocol: ARI ? Max HR: 102 BPM? 70% of? Pred: 145 BPM Max BP: 168/076 mmHG Max Work Load: 5.8 METS ? Exercise stress test with exercise 4 min 4 sec of Ari protocol, with moderate ?sob and request to stop, no chest discomfort, with frequent isolated multifocal ?PVCs, occassional cuplet and one triplet, with heart rate 68 ( 46% MPHR) at ?baseline and clarissa to heart rate 98 ( 67% MPHR), with normotensive response to ?exercise, with nondiagnostic EKG for ischemia due to suboptimal heart rate. In ?recovery his breathing normalized. Test reviewed with Dr Espinoza ECHO 06/2021 Conclusions: -? 1. Mildly reduced LV systolic function with impaired? relaxation filling pattern with regional wall motion abnormality of the basal inferior inferoseptal holman ? 2. Mildly dilated left atrium? 3. Moderate mitral and calcification with? trivial aortic? regurgitation? 4.? Normal RV systolic pressure? 5. No gross pericardial effu ? ?? Assessment and Plan Assessment Anesthesia Assessment: Chart Reviewed Documented by User: Renita Askew MD 06/18/22 09:16 [facility] Past Medical History Medical History BPH (benign prostatic hyperplasia) CAD (coronary artery disease) Cardiomyopathy COVID-19 vaccine administered Diabetes mellitus History of colon cancer (~2010) History of COVID-19 Hyperlipidemia associated with type 2 diabetes mellitus Hypertension Obesity PVC (premature ventricular contraction) SVT (supraventricular tachycardia) Tubular adenoma of colon Functional capacity: independent ambulation Family History Family History Father Cancer, colon Mother Cancer of breast Cancer of lung Sister Cancer Family history of problems with anesthesia: No Surgical History Surgical History History of cardiac cath History of cataract surgery (~2013) History of colonoscopy History of colostomy (~2010) History of colostomy reversal (~2011) History of coronary artery bypass graft x 3 (~1998) History of hernia repair (~2012) History of left knee surgery (~2003) History of partial colectomy (~2011) History of repair of rotator cuff History of right knee surgery History of tonsillectomy History of Problems with Anesthesia: No Social History Social History Housing: House Are you a primary dog day care attendant to a significant other at home: No Do you presently have visiting nurse or other home services: No Alcohol intake: current Alcohol intake frequency: 0-2 drinks per day Patient Tobacco Use Status: Never used Tobacco e-Cigarette/Vaping Use: Never Used Second Hand Smoke Exposure: No Have you been hit, kicked, punched, or otherwise hurt by someone within the past year? If so, by whom?: No Are you DNR?: No Advance Directives: No Advance Directives Information Provided: Yes Advance Directives on File: No Recently lost weight without trying: No Nutrition Risks: Surgical patient >75years Poor oral hygiene: No (partial lower) service: No Current occupational status: retired Cognitive needs: No Hearing needs: No Vision needs: No Meds Allergies Allergy/AdvReac Type Severity Reaction Status Date / Time BERNABE Inhibitors Allergy Intermediate DEPRESSION Verified 06/18/22 06:20 [BERNABE INHIBITORS] latex [LATEX] Allergy Intermediate RASH Verified 06/18/22 06:20 terazosin Allergy Intermediate hives, Verified 06/18/22 06:20 swollen lips and hoarseness pravastatin [Pravachol] Allergy Unknown unknown Verified 06/18/22 06:20 bee pollen [bee stings] AdvReac Severe Anaphylaxis Verified 06/18/22 06:20 Beta-Blockers AdvReac Intermediate DECREASED Verified 06/18/22 06:20 (Beta-Adrenergic Bloc HR, [BETA-BLOCKERS DEPRESSION (BETA-ADRENERGIC BLOC] amoxicillin Allergy Intermediate hives, Uncoded 06/18/22 06:20 swollen lips, and hoarseness cephlex: levofloxacin Allergy Intermediate hives, Uncoded 06/18/22 06:20 swollen lips, and hoarseness clindomycin Allergy Intermediate hives, Uncoded 06/18/22 06:20 swollen lips, and hoarseness Home Medications Medication Instructions Recorded Confirmed Last Taken Type aspirin 81 mg tablet,delayed 81 mg PO DAILY 05/22/20 06/14/22 06/16/22 History release (Adult Low Dose Aspirin) diphenhydramine HCl 25 mg tablet 25 mg PO TID PRN Anxiety 05/22/20 06/18/22 Unknown History (Benadryl Allergy) fluticasone propionate 50 1 spray intranasal DAILY 05/22/20 06/14/22 Unknown History mcg/actuation nasal spray,suspension (Flonase Allergy Relief) nitroglycerin 0.4 mg sublingual 0.4 mg sublingual Q5M PRN Chest 05/03/22 06/14/22 Unknown History tablet Pain Epi E-Z Pen 06/14/22 06/14/22 Unknown History finasteride 5 mg tablet 1 tab PO DAILY 06/14/22 06/14/22 Unknown History Exam Airway Mallampati Class: II TM Dist: >3cm Neck ROM: Full Denture: Upper and Lower Heart: RRR Lungs: CTA Assessment and Plan Final Anesthetic Review Family History of Problems with Anesthesia: No History of Problems with Anesthesia: No ASA Class: III Final Preanesthetic Review: No Changes in Pt Med Stat, Meds/Allgs Chart Reviewed and Consent Obtained/Reviewed Patient Risk: Intermediate Procedure Risk: Low Anesthetic Plan Anesthetic Plan: GA Disposition: Standard PACU
[2022-06-18] VITALS (17 sets, daily range): BP systolic 132–176; BP diastolic 74–97; PULSE 60–69; RESP 12–18; TEMP 36.1–36.7; O2SAT 93–99
--- NOTE | ~2022-06-18 | FL_ITS ---
EXAMINATION: XR FLUOROSCOPY WITH IMAGES CLINICAL INFORMATION: Pacemaker insertion COMPARISON: None. TECHNIQUE: Fluoroscopy Supervised By: Nam parnell Fluoroscopy Time: 3.7 minutes. Cumulative Dose: 97.0 mGy. DAP: 23.8 Gycm2. Images: 2. FINDINGS: There are 2 digital images available revealing dual pacer electrodes in right atrium and right ventricle. There are median sternotomy sutures from previous intervention. FL/FL guidance in OR IMPRESSION: Fluoroscopy guidance was provided to referring physician for pacemaker insertion.
--- NOTE | ~2022-06-18 | XR_ITS ---
EXAMINATION: XR CHEST CLINICAL INFORMATION: Pacemaker COMPARISON: Previous chest x-ray most recent December 2021 TECHNIQUE: Frontal view of the chest was obtained. FINDINGS: The cardiac silhouette does not appear enlarged. There are post-CABG changes. There is a new left subclavian dual chamber pacemaker in satisfactory position. There is subsegmental atelectasis at the left lung base. The lungs are otherwise clear. No pleural effusion or pneumothorax. Postsurgical changes to the right shoulder. XR/XR chest 1V IMPRESSION: Satisfactory position of new left subclavian dual chamber pacemaker. No pneumothorax.
[2022-06-18 06:41] LABS: COVID-19 Test Negative (Negative); IDNOW Serial# 55D5AD1C
[2022-06-18 06:51] LABS: Glucose, Whole Blood 141 mg/dL (60-115)
[2022-06-18] MEDS: Lactated Ringers 1,000 ML 50 ML IVCONT (06:55)
--- NOTE | 2022-06-18 07:07 | MHC.SHP ---
Pre-Procedural Eval Section A Date of Service: 06/18/22 The patient is an INPATIENT: No The History & Physical has been completed within 30 days and I have reviewed it.: Yes Section B Chief Complaint: Other specified conduction disorders Allergies: Allergies Allergy/AdvReac Type Severity Reaction Status Date / Time BERNABE Inhibitors Allergy Intermediate DEPRESSION Verified 06/18/22 06:20 [BERNABE INHIBITORS] latex [LATEX] Allergy Intermediate RASH Verified 06/18/22 06:20 terazosin Allergy Intermediate hives, Verified 06/18/22 06:20 swollen lips and hoarseness pravastatin [Pravachol] Allergy Unknown unknown Verified 06/18/22 06:20 bee pollen [bee stings] AdvReac Severe Anaphylaxis Verified 06/18/22 06:20 Beta-Blockers AdvReac Intermediate DECREASED Verified 06/18/22 06:20 (Beta-Adrenergic Bloc HR, [BETA-BLOCKERS DEPRESSION (BETA-ADRENERGIC BLOC] amoxicillin Allergy Intermediate hives, Uncoded 06/18/22 06:20 swollen lips, and hoarseness cephlex: levofloxacin Allergy Intermediate hives, Uncoded 06/18/22 06:20 swollen lips, and hoarseness clindomycin Allergy Intermediate hives, Uncoded 06/18/22 06:20 swollen lips, and hoarseness Plan I have reviewed the history and physical and performed a pertinent physical examination on my patient. No changes have occurred unless specified. Plan for dc ppm.
[2022-06-18] MEDS: vancomycin HCL 1,500 MG in 0.9 % Sodium Chloride 500 ML 333.33 MG IV (07:30)
--- NOTE | 2022-06-18 09:59 | W.PM.OPN ---
Operative Note Operative Note Date of Service: 06/18/22 Narrative: Preoperative diagnosis: Sick sinus syndrome, chronotropic incompetence Postoperative diagnosis: Same Operation: Placement of dual-chamber permanent pacemaker with fluoroscopic guidance Surgeon: Warren Browning MD Specimens: None EBL: 5 cc Operative findings: The pacemaker placed was [employer] pacemaker serial [id number]. The atrial lead was a [employer] serial number [id number]. The ventricular lead was a [employer] serial number [id number]. Parameters in the right atrial lead sensing was 15 mV with a threshold of 0.5 volts at 0.4 milliseconds and an impedance of 510 Ohms. In the ventricular lead threshold was 0.5 volts at 0.4 milliseconds with an impedance of 750 Ohms and an R-wave of 10.3 mV. Patient tolerated procedure well. Operation in detail: The patient was brought to the operating room, placed supine on the operating room table, anesthesia moderate of ices were placed, and the patient was gently sedated. A time-out was performed confirming the correct patient site and procedure. After injection of local anesthetic, a 3 cm incision was made in the left infraclavicular region and carried down to the pectoralis fascia with electrocautery. The patient was then placed in Trendelenburg and an 18 gauge needle was used to access subclavian vein on the 1st take. And a wire was placed into the right atrium under fluoroscopic guidance. A 2nd 18 gauge needle was then used to access the subclavian vein again on the 1st ache and a wire was placed under fluoroscopic guidance and parked in the right atrium. The patient was then taken out of Trendelenburg and a pocket was formed using blunt and electrocautery dissection. The 1st 6 Turkmen sheath was then placed over wire and the wire and dilator were removed. The ventricular lead was then placed through the sheath and parked in the right atrium and the peel-away sheath was removed. After several attempts using a curved stylet we were eventually able to access the right ventricle and the tip of the lead was positioned at the right ventricular apex. The endocardial screw was deployed and the lead was tested with excellent parameters above. This lead was then secured with silk sutures to the pectoralis fascia. The 2nd 6 Turkmen sheath was then placed over the 2nd wire and a wire dilator removed. The atrial lead was then placed and parked in the right atrium. AJ stylet was used to position this in the right atrial appendage. The endocardial screws deployed and the lead was tested with excellent parameters above. This lead was also secured with silk sutures to the pectoralis fascia. The pocket was then copiously irrigated with antibiotic solution. The leads were then placed in their appropriate receptacles and the pacemaker was tested again with excellent parameters. The generator and excess lead was then placed into the pocket. The wound was then closed with a deep running 3-0 Vicryl suture followed by running 3-0 Vicryl suture and Dermabond glue in the skin. The patient was then brought back to The PACU in stable condition.
--- NOTE | 2022-06-18 10:49 | PHA.MEDREC ---
Pharmacy Consult ? Medication Reconciliation Pharmacy has reviewed the medication reconciliation completed by nursing. Shadia Moeller, DavonD
[2022-06-18] MEDS: Acetaminophen 1,000 MG/100 ML PIGGYBACK 400 MG IV (11:55)
[2022-06-18] MEDS: Acetaminophen 325 MG TABLET 650 MG PO ×2 (15:49→21:20)
[2022-06-18] MEDS: Heparin Sodium,Porcine 5,000 UNIT/ML VIAL 5000 UNIT SUBCUT (20:06)
[2022-06-18] MEDS: 0.9 % Sodium Chloride Flush 3 ML SYRINGE IVFLUSH (20:06)
[2022-06-19] VITALS: BP 158/100; PULSE 64; RESP 18; TEMP 36.8; O2SAT 96
[2022-06-19] MEDS: Heparin Sodium,Porcine 5,000 UNIT/ML VIAL 5000 UNIT SUBCUT ×2 (02:21→10:41)
[2022-06-19] MEDS: Acetaminophen 325 MG TABLET 650 MG PO (02:22)
[2022-06-19 04:00] VITALS: BP 133/82; PULSE 66; RESP 18; TEMP 37.1; O2SAT 98
[2022-06-19 08:00] VITALS: BP 148/83; PULSE 67; RESP 19; TEMP 36.3; O2SAT 96
[2022-06-19 09:16] VITALS: O2SAT 96
[2022-06-19 09:34] LABS: Creatinine Clr Calc Pharmacy 92.9; Estimated Glomerular Filt Rate > 60
--- NOTE | 2022-06-19 10:28 | HO.POSTANES ---
Post Anesthesia Evaluation Post Anesthesia Evaluation Vital Signs: Vital Signs Temp Pulse Resp BP Pulse Ox O2 Del Method 06/19/22 08:00 97.3 F 67 19 148/83 H 96 Room Air 06/19/22 04:00 98.8 F 66 18 133/82 98 Room Air 06/19/22 00:00 98.2 F 64 18 158/100 H 96 Room Air Anesthesia: General LMA Mental Status: Awake Pain Control: Satisfactory Nausea/Vomiting: None Hydration: Adequate Anesthesia-Related Issues: No Anes. Related Issues
[2022-06-19] MEDS: metFORMIN HCl ER 500 MG TAB.ER.24H PO (10:38)
[2022-06-19] MEDS: Bisoprolol Fumarate 5 MG TABLET 2.5 MG PO (10:39)
[2022-06-19] MEDS: Isosorbide Mononitrate 60 MG TAB.ER.24H PO (10:39)
[2022-06-19] MEDS: Finasteride 5 MG TABLET PO (10:39)
[2022-06-19] MEDS: 0.9 % Sodium Chloride Flush 3 ML SYRINGE IVFLUSH (10:42)
[2022-06-19 12:00] VITALS: BP 116/80; PULSE 74; RESP 18; TEMP 36.2; O2SAT 93
--- NOTE | 2022-06-19 12:13 | PM.CNCAR ---
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 He is here because he had chronotropic incompetence and fatigue and concern for bradycardia. Also was having SVT episodes in the past. He underwent pacemaker placement by Dr. Arias today. He was being discharged when the telemetry nurse pointed out that he was in SVT. Patient was seen in the room and was just feeling little nervous. He had no chest discomfort breathing problem. His heart rate was 150 beats per minute. He tried vagal maneuvers including Valsalva and the I tried carotid massage but SVT did not break. Our plan was to give him adenosine but he spontaneously broke out of SVT. He is saying he had similar episodes before. Overall back to normal and denying any concerning symptoms currently. [facility] Past Medical History Medical History BPH (benign prostatic hyperplasia) CAD (coronary artery disease) Cardiomyopathy COVID-19 vaccine administered Diabetes mellitus History of colon cancer (~2010) History of COVID-19 Hyperlipidemia associated with type 2 diabetes mellitus Hypertension Obesity PVC (premature ventricular contraction) SVT (supraventricular tachycardia) Tubular adenoma of colon Functional capacity: independent ambulation Family History Family History Father Cancer, colon Mother Cancer of breast Cancer of lung Sister Cancer Surgical History Surgical History History of cardiac cath History of cataract surgery (~2013) History of colonoscopy History of colostomy (~2010) History of colostomy reversal (~2011) History of coronary artery bypass graft x 3 (~1998) History of hernia repair (~2012) History of left knee surgery (~2003) History of partial colectomy (~2011) History of repair of rotator cuff History of right knee surgery History of tonsillectomy Social History Social History Household Members: Spouse Housing: House Are you a primary special needs caregiver to a significant other at home: No Do you presently have visiting nurse or other home services: No Alcohol intake: current Alcohol intake frequency: 0-2 drinks per day Patient Tobacco Use Status: Never used Tobacco e-Cigarette/Vaping Use: Never Used Second Hand Smoke Exposure: No Use of substances other than those prescribed or required for medical reasons: No Currently Displaying Signs/Symptoms of Drug Intoxication Withdrawal: No Have you been hit, kicked, punched, or otherwise hurt by someone within the past year? If so, by whom?: No Do you feel safe in your current relationship?: Yes Is there a partner from a previous relationship who is making you feel unsafe now?: No Are you made to feel afraid or neglected: No Are you DNR?: No Advance Directives: No Advance Directives Information Provided: Yes Advance Directives on File: No Do you have thoughts of harming others: None Do you have a plan to hurt others: No Plan Recently lost weight without trying: No Nutrition Risks: No Nutritional Risk Poor oral hygiene: No (partial lower) service: No Current occupational status: retired Cognitive needs: No Hearing needs: No Vision needs: No Meds Allergies Allergy/AdvReac Type Severity Reaction Status Date / Time BERNABE Inhibitors Allergy Intermediate DEPRESSION Verified 06/18/22 06:20 [BERNABE INHIBITORS] latex [LATEX] Allergy Intermediate RASH Verified 06/18/22 06:20 terazosin Allergy Intermediate hives, Verified 06/18/22 06:20 swollen lips and hoarseness pravastatin [Pravachol] Allergy Unknown unknown Verified 06/18/22 06:20 bee pollen [bee stings] AdvReac Severe Anaphylaxis Verified 06/18/22 06:20 Beta-Blockers AdvReac Intermediate DECREASED Verified 06/18/22 06:20 (Beta-Adrenergic Bloc HR, [BETA-BLOCKERS DEPRESSION (BETA-ADRENERGIC BLOC] amoxicillin Allergy Intermediate hives, Uncoded 06/18/22 06:20 swollen lips, and hoarseness cephlex: levofloxacin Allergy Intermediate hives, Uncoded 06/18/22 06:20 swollen lips, and hoarseness clindomycin Allergy Intermediate hives, Uncoded 06/18/22 06:20 swollen lips, and hoarseness Active Medications: Current Medications Acetaminophen (Acetaminophen 325 Mg Tablet) 650 mg PO Q6H PRN PRN Reason: Pain, Mild (Pain Scale 1-3) Last Admin: 06/19/22 02:22 Dose: 650 mg Albuterol Sulfate (Albuterol Sulfate 90 Mcg 8 Gm Inhaler) 2 puff INHALE RQ4H PRN PRN Reason: shortness of breath or wheezing Bisoprolol Fumarate (Bisoprolol Fumarate 5 Mg Tablet) 2.5 mg PO DAILY [facility] Last Admin: 06/19/22 10:39 Dose: 2.5 mg Diphenhydramine HCl (Diphenhydramine Hcl 25 Mg Capsule) 25 mg PO TID PRN PRN Reason: Anxiety Finasteride (Finasteride 5 Mg Tablet) 5 mg PO DAILY [facility] Last Admin: 06/19/22 10:39 Dose: 5 mg Fluticasone Propionate (Fluticasone Propionate Nasal 16 Gm [place]) 1 spray NOSTRIL-B DAILY [facility] Last Admin: 06/19/22 10:42 Dose: Not Given Heparin Sodium (Porcine) (Heparin Sodium,Porcine 5,000 Unit/Ml Vial) 5,000 unit SUBCUT Q8H [facility] Last Admin: 06/19/22 10:41 Dose: 5,000 unit Lactated Ringer's (Lr) 1,000 mls @ 50 mls/hr IVCONT .Q20H [facility] Last Infusion: 06/18/22 18:08 Dose: Infused Isosorbide Mononitrate (Isosorbide Mononitrate 60 Mg Tab.Er.24h) 60 mg PO DAILY [facility]; Protocol Last Admin: 06/19/22 10:39 Dose: 60 mg Metformin HCl (Metformin Hcl Er 500 Mg Tab.Er.24h) 500 mg PO DAILY [facility] Last Admin: 06/19/22 10:38 Dose: 500 mg Ondansetron HCl (Ondansetron Hcl 4 Mg/2 Ml Vial) 4 mg IVPUSH ONCE PRN PRN Reason: Nausea and Vomiting Sodium Chloride (0.9 % Sodium Chloride Flush 3 Ml Syringe) 3 ml IVFLUSH QSHIFT [facility] Last Admin: 06/19/22 10:42 Dose: 3 ml Home Medications Medication Instructions Recorded Confirmed Last Taken Type aspirin 81 mg tablet,delayed 81 mg PO DAILY 05/22/20 06/14/22 06/16/22 History release (Adult Low Dose Aspirin) diphenhydramine HCl 25 mg tablet 25 mg PO TID PRN Anxiety 05/22/20 06/18/22 Unknown History (Benadryl Allergy) fluticasone propionate 50 1 spray intranasal DAILY 05/22/20 06/14/22 Unknown History mcg/actuation nasal spray,suspension (Flonase Allergy Relief) nitroglycerin 0.4 mg sublingual 0.4 mg sublingual Q5M PRN Chest 05/03/22 06/14/22 Unknown History tablet Pain finasteride 5 mg tablet 1 tab PO DAILY 06/14/22 06/14/22 Unknown History Physical Exam Vital Signs: Vital Signs: Last Vital Signs Temp 97.3 F 06/19/22 08:00 Pulse 67 06/19/22 08:00 Resp 19 06/19/22 08:00 BP 148/83 H 06/19/22 08:00 Pulse Ox 96 06/19/22 08:00 O2 Del Method 06/19/22 08:00 O2 Flow Rate 4 06/18/22 11:11 BMI result Body Mass Index 32.5 GENERAL APPEARANCE: in no acute distress, pleasant. NECK: no carotid bruit, no jugular venous distention. SKIN: no suspicious lesions, warm and dry. HEART: no murmurs, regular rate and rhythm. LUNGS: clear to auscultation bilaterally. ABDOMEN: soft, nontender. EXTREMITIES: no edema. PERIPHERAL PULSES: equal. NEUROLOGIC: No gross deficits, AAO X 3 Objective Labs and Meds Result diagrams: 06/19/22 09:07 Lab results: Laboratory Results - last 24 hr 06/19/22 09:07 Creatinine 0.80 Estim Creat Clear Calc 92.9 Estimated GFR > 60 Assessment and Plan (1) SVT (supraventricular tachycardia): Status: Acute Plan [age] gentleman was admitted for permanent pacemaker placement and was due to go home and developed supraventricular tachycardia. He has known history of SVT by his report. Asymptomatic currently. He has spontaneously broken out of SVT but vagal maneuvers did not work. Increasing bisoprolol to 5 mg daily. He had follow-up with Dr. Espinoza and would have further discussions for SVT management including ablation. Thank you for allowing me to participate in the care of your patient. Please feel free to contact me if you have any questions. Procedures Date of Service Date of Service: 06/19/22
--- NOTE | 2022-06-19 12:20 | P.DS_ITS ---
DS: Providers Provider Date of Service: 06/19/22 Date of admission: 06/18/22 10:19 Date of discharge: 06/19/22 Primary care physician: Mckinley Choi MD Consults: 06/18/22 10:31 Consult to Hospitalist Routine Consulting Provider: Hospitalist Reason For Exam: Assistance with medical management DS: Diagnosis Discharge Diagnosis (1) SVT (supraventricular tachycardia): Status: Acute (2) Chronotropic incompetence: Status: Acute (3) Bradycardia: Status: Acute DS: Summary Hospital Course Hospital Course: Mr. Ortiz was taken to the operating room with Dr. Browning on an elective bases on 06/18/2022 where he had a dual chamber [employer]je pacemaker insertion. Postoperatively he was transferred to the telemetry floor where he did well, however he did have one episode of SVT with HRs in 150s that broke spontaneously. Dr. Torre from cardiology evaluated the patient and recommended increasing the patient's Bisoprolol to 5mg daily and to followup with his outpatient cardiology, Dr. Espinoza. Otherwise, his pacemaker was interrogated prior to discharge with normal values. Patient had no complaints other than some flutters during the SVT episode and no other symptoms. After discussion with Dr. torre and Dr. Browning it was determined the patient was stable to be discharged home. Time Spent with Patient Time attestation: Total time spent providing and/or coordinating discharge services: Discharge coordination time: Greater than 30 minutes Quality: Safe Use of Opioids Does Pt have an Active Cancer Diagnosis on the Problem List?: No Quality: Stroke Does the patient have a stroke diagnosis?: No Physical Exam Vital Signs: Vital Signs: Last Vital Signs Temp 97.2 F 06/19/22 12:00 Pulse 74 06/19/22 12:00 Resp 18 06/19/22 12:00 BP 116/80 06/19/22 12:00 Pulse Ox 93 06/19/22 12:00 O2 Del Method 06/19/22 12:00 O2 Flow Rate 4 06/18/22 11:11 BMI result Body Mass Index 32.5 General: No acute distress, resting comfortably in recliner chair, well developed Head: Normocephalic, atraumatic, symmetric Eyes: Sclera anicteric, eyelids without edema or erythema, +EOMS intact ENT: Oral mucosa and tongue are moist without lesions or exudates Neck: Soft, supple, symmetric, trachea midline, no crepitus Cardiovascular: Regular rate and rhythm, no murmur/rubs/gallops, BUE and BLE without edema, no calf tenderness bilaterally. L infraclavicular pacemaker pocket with some bruising, but no palpable hematoma or erythema. Expected slight TTP. Respiratory: Lungs CTA B, breathing nonlabored, speaking in full sentences, on room air. Gastrointestinal: Soft, non-tender, non-distended, +normoactive bowel sounds. Skin: Warm and dry throughout, no rashes Neurological: Alert and oriented x 3, no focal neurological deficit noted Psychiatric: no agitation, appropriate affect DS: Data Data Completed and Pending Labs on day of discharge: Laboratory Results - last 24 hr 06/19/22 09:07 Creatinine 0.80 Estim Creat Clear Calc 92.9 Estimated GFR > 60 Discharge Plan Discharge Anticipated Discharge Date/Time: 06/19/22 12:14 Patient Disposition: Home, Self-Care Discharge Diagnosis: sick sinus syndrome s/p pacemaker insertion Referrals: Mckinley Choi MD [Primary Care Provider] - 1 Week Discharge Medications: New bisoprolol fumarate 5 mg tablet 5 mg PO DAILY Qty: 30 0RF Continued (DME) blood-glucose meter [OneTouch Verio Meter] [facility] [place], [place] See Rx Instructions .ROUTE .MEDSUPPLY Qty: 1 0RF Rx Instructions: to check blood sugars once a day (DME) OneTouch Verio test strips Strip See Rx Instructions .ROUTE .MEDSUPPLY Qty: 100 2RF Rx Instructions: 1 Strip Once a Day (DME) lancets [OneTouch Delica Lancets] [address] [facility] [place] See Rx Instructions .ROUTE .MEDSUPPLY Qty: 100 8RF Rx Instructions: to check blood sugars once a day metformin 500 mg tablet extended release 24hr 500 mg PO DAILY Qty: 90 8RF rosuvastatin [Crestor] 40 mg tablet 40 mg PO DAILY 90 Days Qty: 90 3RF ezetimibe 10 mg tablet 10 mg PO DAILY Qty: 90 8RF isosorbide mononitrate 60 mg tablet extended release 24 hr 60 mg PO DAILY Qty: 90 1RF Rx Instructions: Stop taking your Isosorbide 30mg as discussed and start this 60 mg dose daily per Dr. Espinoza finasteride 5 mg tablet 1 tab PO DAILY albuterol sulfate [ProAir HFA] 90 mcg/actuation HFA aerosol inhaler 2 puff inhalation Q4-6H PRN (Reason: shortness of breath or wheezing) Qty: 8.5 2RF aspirin [Adult Low Dose Aspirin] 81 mg tablet,delayed release (DR/EC) 81 mg PO DAILY fluticasone propionate [Flonase Allergy Relief] 50 mcg/actuation spray,suspension 1 spray intranasal DAILY Rx Instructions: administer into each nostril diphenhydramine HCl [Benadryl Allergy] 25 mg tablet 25 mg PO TID PRN (Reason: Anxiety) nitroglycerin 0.4 mg tablet, sublingual 0.4 mg sublingual Q5M PRN (Reason: Chest Pain) Rx Instructions: do not exceed 3 doses per episode Discontinued bisoprolol fumarate 5 mg tablet 2.5 mg PO DAILY Qty: 90 3RF Discharge Orders: Discharge Order (Routine); Ordered 06/19/22 Ordered By: Kimberly Barton Diet: Advance to usual diet Activity on Discharge: see restrictions on arm movement below Stand Alone Forms: Patient Portal Discharge page Activity Restrictions/Additional Instructions: MEDICATION CHANGES: The reed repairer who saw you during your hospitalization, Dr. Torre, recommended you increase your Bisoprolol to 5mg daily and to followup with Dr. Espinoza soon after discharge for ongoing management. The change in this medication was made due to the episode of SVT you had prior to discharge. ACTIVITY: * ARM MOVEMENT RESTRICTIONS: No lifting your left arm over your head or behind your back, no pushing/pulling/lifting anything >10lb with your left arm for 6- 8 weeks. This ensures the pacemaker wires stay in place and do not get pulled out accidentally. Make sure you are doing gentle range of motion exercises with the left arm (such as pendulum exercise) to make sure your elbow and shoulder do not get frozen up. * ARM SLING: Keep the sling on until 06/20/22. You may then take the sling off and leave it off. HOWEVER, if you are noticing a difficulty limiting your left arm movement (as outline above) then wear your sling during the day to make sure you are adhering to the restrictions above. * Ask your doctor when you can expect to return to work. * You can still exercise. It is good for your body and your heart. Talk with your doctor about an exercise plan. INCISION CARE: * You may shower starting 06/21/22. Sponge bathe only until then. * Do not submerge yourself in water (baths, pools, etc.) for 2 weeks. * Monitor the incision for increased redness, swelling, bruising, pain, open area, or drainage. OTHER PRECAUTIONS: * Before you receive any treatment, tell all healthcare providers (including your dentist) that you have a pacemaker. * You will be given an ID card that contains information about your pacemaker. Always carry this card with you. You can show this card if your pacemaker sets off a metal detector. You should also show it to avoid screening with a hand-held security wand. * Keep your cell phone away from your pacemaker. Do not carry the phone in your shirt pocket, even it if is turned off. * Avoid strong magnets. Examples are those used in MRI's or in hand-held security wands. * Avoid strong electrical gil. Examples are those made by radio transmitting towers, FlatStack radios, and heavy-duty electrical equipment. * Avoid leaning over the open hoyos of a running car. A running engine creates an electrical field. Most household and yard appliances will not cause any problems. If you use any large power tools, such as an industrial siebel architect, talk with your doctor. WHEN TO CALL YOUR DOCTOR: Call your doctor immediately if you have any of the following: * Dizziness * Chest pain * Lack of energy * Fainting spells * Twitching chest muscles * Rapid pule or pounding heartbeat * Shortness of breath * Pain around your pacemaker * Fever above 100.4 F (38 C) or other signs of infection (redness, swelling, drainage, or warmth at the incision site). * Hiccups that will not stop FOLLOWUP APPOINTMENTS: * Call Dr. Browning's office (Thoracic Surgery) as soon as you get home to schedule a followup appointment for 2 weeks from now. The office number is . * Call your reed repairer to make an appointment for the next couple weeks. Make regular follow-up appointments with your doctor. He or she will check the pacemaker to make sure it is working properly. Care Plan Goals: see above Health Concerns: see above Plan of Treatment: see above Assessment: stable for discharge home
--- NOTE | 2022-06-19 12:54 | MHC.CM.PN ---
IMM DELIVERED. CM MET WITH PATIENT AND SPOUSE. LIVES IN A SINGLE HOME FAMILY WITH . USES CANE, WALKER NEEDED. INDEPENDENT AT BASELINE, NO PRIOR SERVICES. COVID VAX X3. NO HCP ON FILE, DECLINES AT THIS TIME. PCP DR. DAY DP: PT MEDICALLY CLEARED FOR DISCHARGE, SPOUSE WILL TRANSPORT. RN AWARE.
== END 2022-06-19 12:45 | disposition home or self-care (01) | DRG 243 ==
LOC: HO.IMC 16:12
PROVIDERS: Nurse Practitioner; Admitting Provider Physician Assistant; PCP Internal Medicine; Visit Provider Surgery
PROC: 0JH606Z Insertion of Pacemaker, Dual Chamber into Chest Subcutaneous Tissue and Fascia, Open Approach (ICD-10-PCS; principal; 2022-06-18 07:30)
DX: I49.5 Sick sinus syndrome (principal); I45.89 Other specified conduction disorders; I47.1 Supraventricular tachycardia; I25.10 Atherosclerotic heart disease of native coronary artery without angina pectoris; E11.69 Type 2 diabetes mellitus with other specified complication; E78.5 Hyperlipidemia, unspecified; Z20.822 Contact with and (suspected) exposure to COVID-19; Z95.1 Presence of aortocoronary bypass graft; Z85.038 Personal history of other malignant neoplasm of large intestine; Z91.040 Latex allergy status; Z88.0 Allergy status to penicillin; Z79.51 Long term (current) use of inhaled steroids; Z79.82 Long term (current) use of aspirin; Z79.84 Long term (current) use of oral hypoglycemic drugs; Z79.899 Other long term (current) drug therapy
CPT/HCPCS: 36415; 71045; 82565; 82947; 87635; C1785; C1892; C1898; J0131; J2250; J2405; J2795; J3010; J3370

== ENCOUNTER → 2022-08-11 13:13 | Outpatient (BNVA) | payer MEDICARE, SELFPAY | PROVIDERS: PCP Internal Medicine; Referring Provider Internal Medicine; Visit Provider Internal Medicine Cardiovascular Disease | DX: I47.1 Supraventricular tachycardia (principal); I25.10 Atherosclerotic heart disease of native coronary artery without angina pectoris; Z45.09 Encounter for adjustment and management of other cardiac device; Z79.899 Other long term (current) drug therapy; Z95.1 Presence of aortocoronary bypass graft | CPT/HCPCS: 93280; 99212 ==

== ENCOUNTER 2022-10-15 10:17 | Outpatient (REF) | payer MEDICARE, SELFPAY ==
[2022-10-15 13:47] LABS: MANUAL DIFF FLAG NO
[2022-10-15 13:51] LABS: Basophils Percent Auto 0.4 % (0-2); Eosinophils Absolute Auto 0.1 X10*3/uL (0.0-0.4); Eosinophils Percent Auto 0.8 % (0-4); Hematocrit 46.2 % (42.0-52.0); Hemoglobin 15.2 g/dl (14.0-18.0); Imm Gran Abs Auto 0.05 X10*3/uL (0.00-0.03); Imm Gran Pct Auto 0.4 % (0.0-0.4); Lymphocytes Absolute Auto 1.8 X10*3/uL (1.2-4.9); Lymphocytes Percent Auto 15.8 % (20-40); Mean Corpuscular HGB Conc 32.9 g/dl (31.0-36.0); Mean Corpuscular Hemoglobin 29.4 pg (27.0-33.0); Mean Corpuscular Volume 89.4 fL (80.0-98.0); Mean Platelet Volume 11.2 fL (9.4-12.4); Monocytes Percent Auto 9.1 % (2-11); Neutrophils Absolute Auto 8.2 x10*3/uL (2.0-8.3); Neutrophils Percent Auto 73.5 % (45-73); Platelet Count 207 X10*3/uL (160-400); Red Blood Count 5.17 X10*6/uL (4.60-5.80); Red Cell Distribution Width 13.4 % (11.0-16.0); White Blood Count 11.2 X10*3/uL (4.8-10.8)
[2022-10-15 14:01] LABS: D Dimer High Sensitivity 226 NG/ML
[2022-10-15 14:38] LABS: Troponin-I High Sensitivity 5.1 ng/L (<3.5-35.0)
[2022-10-15 15:36] LABS: Anion Gap 16 (12-20); Blood Urea Nitrogen 19 mg/dL (9-16); Carbon Dioxide 19 mmol/L (22-29); Chloride 104 mmol/L (96-108); Estimated Glomerular Filt Rate > 60; Glucose Random 200 mg/dL (60-115); Potassium 4.3 mmol/L (3.3-5.1); Sodium 135 mmol/L (135-145); TSH reflex Free T4 1.26 uIU/mL (0.32-4.0)
== END 2022-10-15 10:18 | disposition home or self-care (01) ==
LOC: HO.WFDLDS 10:17
PROVIDERS: Visit Provider Family Medicine
DX: Z13.89 Encounter for screening for other disorder (principal)
CPT/HCPCS: 36415; 80048; 84443; 84484; 85025; 85379

== ENCOUNTER 2022-10-15 10:47 | Outpatient (REF) | payer MEDICARE, SELFPAY ==
--- NOTE | ~2022-10-15 | XR_ITS ---
EXAMINATION: XR CHEST CLINICAL INFORMATION: R07.9 - Chest pain, unspecified COMPARISON: Chest radiographs 06/18/2022, 12/28/2021 TECHNIQUE: 2 views of the chest were obtained. FINDINGS: There are low lung volumes. No pneumothorax, airspace consolidation, or airspace opacity. The costophrenic sulci are clear. Heart upper limits of normal size. There is even distribution of the vascularity which may suggest mild elevated pulmonary venous pressures. There are no Shannan lines or effusion. Again, there are postsurgical changes with mediastinal clips and sternotomy wires, bipolar pacemaker, and bilateral shoulder orthopedic anchors. XR/XR chest 2V IMPRESSION: -Low lung volumes. No pneumothorax, airspace consolidation, or airspace opacity. No effusion. -Even distribution vascularity which may suggest mild elevated pulmonary venous pressures.
== END 2022-10-15 10:48 | disposition home or self-care (01) ==
LOC: HO.XRAY 10:47
PROVIDERS: PCP Internal Medicine; Visit Provider Family Medicine
DX: Z00.00 Encounter for general adult medical examination without abnormal findings (principal); R07.9 Chest pain, unspecified
CPT/HCPCS: 36415; 71046; 80048; 84443; 84484; 85025; 85379

== ENCOUNTER 2022-10-28 09:37 | Outpatient (REF) | payer MEDICARE, SELFPAY ==
[2022-10-28 12:10] LABS: Cholesterol 111 mg/dL; HDL Cholesterol 30 mg/dL; LDL Cholesterol Calculated 59 mg/dl; Triglycerides 112 mg/dL
== END 2022-10-28 09:38 | disposition home or self-care (01) ==
LOC: HO.WFDLDS 09:37
PROVIDERS: Visit Provider Internal Medicine Cardiovascular Disease
DX: E11.69 Type 2 diabetes mellitus with other specified complication (principal); E78.5 Hyperlipidemia, unspecified; I25.10 Atherosclerotic heart disease of native coronary artery without angina pectoris
CPT/HCPCS: 36415; 80061

== ENCOUNTER → 2022-12-01 08:04 | Outpatient (BNVA) | payer MEDICARE, SELFPAY | PROVIDERS: PCP Internal Medicine; Referring Provider Internal Medicine; Visit Provider Internal Medicine Cardiovascular Disease | DX: Z45.018 Encounter for adjustment and management of other part of cardiac pacemaker (principal); I25.10 Atherosclerotic heart disease of native coronary artery without angina pectoris; I47.1 Supraventricular tachycardia; R06.02 Shortness of breath | CPT/HCPCS: 93280; 99212 ==

== ENCOUNTER → 2022-12-15 08:58 | Outpatient (REF) | payer MEDICARE, SELFPAY ==
--- NOTE | 2022-12-15 09:02 | CA_ITS ---
Transthoracic Echocardiogram Patient (Last, First, Middle): Kartik Ortiz, Gender: Male Date of : 1945 Age: 77 Procedure Date: 12/15/2022 Procedure Type: Transthoracic Echocardiogram Location: OP Height: 175.26 cm Weight: 97.52 kg BSA: 2.13 m2 Heart Rate: bpm BP: 120 / 80 mmHg Crew Member: TO Referring MD: Marquise Espinoza MD Symptoms: R06.02 - Shortness of breath Study Quality: Fair/Contrast ECG Rhythm: Sinus Conclusions: - The left ventricular systolic function is mildly decreased. The calculated ejection fraction is 46% by biplane method. - There is moderately decreased right ventricular systolic function. - There is mild calcification of the aortic valve. - There is moderate posterior mitral annular calcification. Findings Procedure Information Contrast agent, definity, is being given per protocol without apparent complications. Left Ventricle Normal left ventricular cavity size. The left ventricular systolic function is mildly decreased. The calculated ejection fraction is 46% by biplane method. Regional wall motion abnormalities can not be excluded due to suboptimal endocardial definition. Diastolic function is normal for age. There is mild septal asymmetric hypertrophy. Right Ventricle Normal right ventricular cavity size. There is moderately decreased right ventricular systolic function. Atria Both atria are normal in size. Aortic Valve There is a normal trileaflet aortic valve. There is mild calcification of the aortic valve. There is no aortic valve stenosis. There is trace (trivial) aortic valve regurgitation. Mitral Valve There is moderate posterior mitral annular calcification. There is trace mitral valve regurgitation. There is no mitral valve stenosis. Pulmonic Valve The pulmonic valve is likely normal. Tricuspid Valve There is no tricuspid valve regurgitation. Tricuspid regurgitation envelope is inadequate for calculation of right ventricular systolic pressure. Great Vessels There is mild dilatation of the ascending aorta measuring 3.90 cm. Venous The inferior vena cava is normal in size and collapses less than 50% with inspiration. Pericardium/Pleural There is no evidence of pericardial effusion. Prior Study Comparison No significant change compared to prior study dated: 06/30/2021. Measurements 2D Linear Measurements IVSd: 1.10 0.6-0.9/0.6-1.0 cm LVIDd: 5.34 3.9-5.3/4.2-5.9 cm LVIDd Index: 2.51 2.4-3.2/2.2-3.1 cm/m2 LVIDs: 4.23 2.0-3.6 cm LVPWd: 0.92 0.7-1.1 cm LA Diam: 4.40 2.7-3.8/3.0-4.0 cm LAIDs Index: 2.07 1.5-2.3 cm/m2 LV Mass: 256.78 67-162/88-224 g LV Mass Index: 120.55 43-95/49-115 g/m2 LVOT Diam: 2.50 3.0+(-)1.3 cm 2D Systolic Function EF 4C: 45.50 >55% EF 2C: 46.30 >55% EF BiP: 45.80 >55% Mitral Valve MV Pk E: 0.26 MV PK A: 0.51 MV Decel Time: 211.00 E/A: 0.50 E'Lateral: 5.44 E'Medial: 3.92 E/E' Med: 6.70 E/E' Lat: 4.80 PHT: 62.00 MVA PHT: 3.55 Decel [place]: 1.24 Aortic Valve AoV Pk Otoniel: 1.13 AoV Mn Otoniel: 0.79 AoV VTI: 0.24 AoV Pk Grad: 5.00 Aov Mn Grad: 3.00 NGHIA Cont.VTI: 2.59 LVOT LVOT Pk Otoniel: 0.62 LVOT Mn Otoniel: 0.43 LVOT VTI: 0.13 LVOT Pk Grad: 2.00 LVOT Mn Grad: 1.00 LVOT Diam: 2.50 LVOT Area: 4.91 Diastolic Function MV Pk E: 0.26 MV Pk A: 0.51 E/A: 0.50 E'Medial: 3.92 E/E' Med: 6.70 E' Laterial: 5.44 E/E' Lat: 4.80 Right Ventricle TAPSE (mm): 12.50 TVS' Otoniel: 7.83 Tricuspid Valve RA Press: 8.00 Great Vessels Aorta Sinus of Valsalva: 3.35 2.0-3.[address] [place]: 3.11 1.7-3.4 cm Ao Asc: 3.90 2.1-3.4 cm Updated in Other Vendor System with Status of Final Andrey Ferraro MD electronically signed on 12/16/2022 10:15:24 AM with status of Final
== END ==
LOC: HO.CARD 08:58
PROVIDERS: PCP Internal Medicine; Visit Provider Internal Medicine Cardiovascular Disease
DX: R06.02 Shortness of breath (principal)
CPT/HCPCS: 93306; Q9957

== ENCOUNTER → 2022-12-30 09:21 | Outpatient (BNVA) | payer MEDICARE, SELFPAY | PROVIDERS: PCP Internal Medicine; Referring Provider Internal Medicine; Visit Provider Internal Medicine Cardiovascular Disease | DX: Z45.018 Encounter for adjustment and management of other part of cardiac pacemaker (principal); I25.10 Atherosclerotic heart disease of native coronary artery without angina pectoris; I47.1 Supraventricular tachycardia; R06.02 Shortness of breath | CPT/HCPCS: 93280; 99212 ==

== ENCOUNTER 2023-01-17 09:24 | Outpatient (REF) | payer MEDICARE, SELFPAY ==
[2023-01-17 11:12] LABS: Hematocrit 47.6 % (42.0-52.0); Hemoglobin 15.5 g/dl (14.0-18.0); Mean Corpuscular HGB Conc 32.6 g/dl (31.0-36.0); Mean Corpuscular Hemoglobin 28.3 pg (27.0-33.0); Mean Corpuscular Volume 86.9 fL (80.0-98.0); Mean Platelet Volume 10.7 fL (9.4-12.4); Platelet Count 219 X10*3/uL (160-400); Red Blood Count 5.48 X10*6/uL (4.60-5.80); Red Cell Distribution Width 14.2 % (11.0-16.0); White Blood Count 9.3 X10*3/uL (4.8-10.8)
[2023-01-17 11:23] LABS: Anion Gap 12 (12-20); Blood Urea Nitrogen 20 mg/dL (9-16); Calcium 9.1 mg/dL (8.4-10.2); Carbon Dioxide 26 mmol/L (22-29); Chloride 105 mmol/L (96-108); Estimated Glomerular Filt Rate > 60; Glucose Random 162 mg/dL (60-115); Potassium 4.6 mmol/L (3.3-5.1); Prothrombin Time 11.1 SEC (10.0-13.1); Sodium 138 mmol/L (135-145)
== END 2023-01-17 09:25 | disposition home or self-care (01) ==
LOC: HO.WFDLDS 09:24
PROVIDERS: Visit Provider Internal Medicine Cardiovascular Disease
DX: R06.02 Shortness of breath (principal)
CPT/HCPCS: 36415; 80048; 85027; 85610

== ENCOUNTER → 2023-02-10 23:59 | Outpatient (BNV) | payer MEDICARE, SELFPAY | PROVIDERS: PCP Internal Medicine; Visit Provider Internal Medicine Cardiovascular Disease | DX: I20.8 Other forms of angina pectoris (principal); R93.1 Abnormal findings on diagnostic imaging of heart and coronary circulation; R06.02 Shortness of breath | CPT/HCPCS: 93461; 93566; 99152 ==

== ENCOUNTER 2023-02-24 11:17 | Outpatient (AMB) | payer MEDICARE, SELFPAY ==
[2023-02-24 11:16] VITALS: BP 120/82; PULSE 60; BMI 31.3
--- NOTE | 2023-02-24 11:16 | A.OFFVIS_ITS ---
Intake Vital Signs 02/24/23 11:16 Height 5 ft 9 in Weight 211 lb 10.3 oz BMI 31.3 BP 120/82 Blood Pressure Location Lt brachial Position Sitting Pulse 60 Intake Visit Reasons: follow-up cardiac cath Intake Note: Follow-up cardiac cath feeling ok Outreach Liaison Required: No Shank Cutter: Shank Cutter Present Accompanied by: Spouse Allergies BERNABE Inhibitors [BERNABE INHIBITORS] Allergy (Intermediate, Verified 01/11/23 13:10) DEPRESSION latex [LATEX] Allergy (Intermediate, Verified 01/11/23 13:10) RASH terazosin Allergy (Intermediate, Verified 01/11/23 13:10) hives, swollen lips and hoarseness pravastatin [Pravachol] Allergy (Unknown, Verified 01/11/23 13:10) unknown bee pollen [bee stings] Adverse Reaction (Severe, Verified 01/11/23 13:10) Anaphylaxis Beta-Blockers (Beta-Adrenergic Bloc [BETA-BLOCKERS (BETA-ADRENERGIC BLOC] Adverse Reaction (Intermediate, Verified 01/11/23 13:10) DECREASED HR, DEPRESSION amoxicillin Allergy (Intermediate, Uncoded 10/15/22 10:00) hives, swollen lips, and hoarseness cephlex: levofloxacin Allergy (Intermediate, Uncoded 10/15/22 10:00) hives, swollen lips, and hoarseness clindomycin Allergy (Intermediate, Uncoded 10/15/22 10:00) hives, swollen lips, and hoarseness Medication List - Last Reconciled 02/24/23 by Marquise Espinoza MD amlodipine 2.5 mg PO DAILY aspirin (Adult Low Dose Aspirin) 81 mg PO DAILY bisoprolol fumarate 5 mg PO DAILY 90 days blood sugar diagnostic (Shootitlive Verio test strips) 1 Strip Once a Day blood-glucose meter (Shootitlive Verio Meter) to check blood sugars once a day diphenhydramine HCl (Benadryl Allergy) 25 mg PO TID PRN ezetimibe 10 mg PO DAILY finasteride 5 mg PO DAILY fluticasone propionate 50 mcg/actuation (Flonase Allergy Relief) 1 spray intranasal DAILY isosorbide mononitrate ER 60 mg PO DAILY lancets (Shootitlive Delica Lancets) to check blood sugars once a day metformin ER 500 mg PO DAILY nitroglycerin 0.4 mg sublingual Q5M PRN ranolazine ER 500 mg PO BID rosuvastatin (Crestor) 40 mg PO DAILY 90 days HPI HPI Comments History of Present Illness Details Kartik comes for follow-up. He recently underwent cardiac catheterization with intention to stent circumflex artery. 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 Denies any worsening symptoms although he says that he is not pushing himself. Denies any heart failure symptoms. No clear orthopnea, PND, leg edema. Tolerating recent start of amlodipine therapy. Denies any palpitations. No bleeding issues or neurologic events. [facility] Medical History BPH (benign prostatic hyperplasia) Bradycardia (~2021) CAD (coronary artery disease) Cardiomyopathy COVID-19 vaccine administered Diabetes mellitus History of colon cancer (~2010) History of COVID-19 Hyperlipidemia associated with type 2 diabetes mellitus Hypertension Obesity Pacemaker (~2021) PVC (premature ventricular contraction) SVT (supraventricular tachycardia) Tubular adenoma of colon Surgical History History of cardiac cath History of cataract surgery (~2013) History of colonoscopy History of colostomy (~2010) History of colostomy reversal (~2011) History of coronary artery bypass graft x 3 (~1998) History of hernia repair (~2012) History of left knee surgery (~2003) History of pacemaker (~2021) History of partial colectomy (~2011) History of repair of rotator cuff History of right knee surgery History of tonsillectomy Family History Father Cancer, colon Mother Cancer of breast Cancer of lung Sister Cancer Social History Household Members: Spouse Housing: House Are you a primary personal care worker to a significant other at home: No Do you presently have visiting nurse or other home services: No Alcohol intake: current Alcohol intake frequency: 0-2 drinks per day Patient Tobacco Use Status: Never used Tobacco e-Cigarette/Vaping Use: Never Used Second Hand Smoke Exposure: No service: No Current occupational status: retired Cognitive needs: No Hearing needs: No Vision needs: Yes (glasses) Review of Systems Const Denies chills, Denies fatigue, Denies fever(s), Denies frequent falls, Denies weakness, Denies weight gain and Denies weight loss ENT Denies dizziness Card Denies chest pain, Denies leg edema, Denies lightheadedness, Denies palpitations, Denies dyspnea, Denies dyspnea on exertion, Denies orthopnea and Denies other (loss of consciousness) Resp Denies cough, Denies dyspnea and Denies dyspnea on exertion GI Denies hematochezia and Denies change in stool character Musc Denies abnormal gait, Denies muscle weakness, Denies numbness, Denies radiating pain into limb and Denies tingling Neuro Denies abnormal gait, Denies dizziness, Denies frequent falls, Denies numbness, Denies tingling and Denies weakness Endo Denies fatigue and Denies palpitations Physical Exam Vital Signs: Last Vital Signs Pulse 60 02/24/23 11:16 BP 120/82 02/24/23 11:16 BMI result Body Mass Index 31.3 Const General: cooperative, comfortable, no acute distress, alert, awake and well groomed Nutritional Appearance: obese Orientation/consciousness: patient oriented x3 HEENT Head: Yes normal to inspection Eyes Sclerae: sclerae normal Neck Neck: Yes trachea midline, Yes supple and Yes no JVD Carotids: normal carotid upstroke Chest Chest palpation & inspection: normal inspection of the chest Resp Effort & Inspection: normal respiratory effort Auscultation: clear to auscultation bilaterally, no crackles, no rales, no rhonchi and no wheezes Cardio Jugular venous distension: no JVD Rate: regular rate Rhythm: regular rhythm Heart sounds: S1 normal heart sound present, S2 normal heart sound present, no gallops, no murmurs and no rubs Peripheral pulses: Peripheral pulses 2+ throughout GI Inspection: Yes normal to inspection Skin General skin exam: no rashes or lesions noted Neuro General: patient oriented x3 Extrem General: Yes normal to inspection, No no pedal edema and No calf tenderness Office Procedures Cardiac Device Check Cardiac Device Check Details: Dual-chamber [employer]je pacemaker in place. Programmed in DDDR at 60 beats per minute. Atrial pacing 79% time. Atrial and ventricular capture thresholds adequate and in our capture mode. No significant arrhythmias noted. Pacing lead impedance is stable. Battery life is excellent 39262-BL Cardiac Device Check, pacemaker dual lead Procedure code (CPT) selection complete Assessment & Plan Assessment & Plan (1) CAD (coronary artery disease): Comment: (Hx CABG x 3 - FIELDS to LAD, radial graft to Ramus, free GOYO to RCA - 1998) Code(s): I25.10 - Atherosclerotic heart disease of [place] coronary artery without angina pectoris Plan: CAD with exertional shortness of breath in this elderly gentleman with diffuse [place] coronary artery disease, all of his 3 coronary vessels are chronically and totally occluded with patent grafts. He has reduced myocardial blood flow in the circumflex territory. Recent attempt at circumflex PCI without success due to chronic total occlusion. Continue current antianginal therapy, currently on 4 different antianginal agents, amlodipine was recently started. Continue Ranexa, bisoprolol and isosorbide. Will refer him to phase 2 cardiac rehabilitation. Follow-up in 6 weeks time. If he continues to exertional shortness of breath will continue to maximize medical therapy prior to refer him for high risk intervention on the chronic total occlusion in the circumflex territory. Although option is present. Continue aggressive risk factor modification. Target goal LDL closer to 60 mg/dL. Blood pressure is currently well optimized advised to monitor blood pressure at home maintain a log. Advised to participate in regular physical activity. Will follow up in 6 weeks time, sooner p.r.n.. Thank you for allowing me to partake in his care (2) SVT (supraventricular tachycardia): Code(s): I47.1 - Supraventricular tachycardia (3) Pacemaker: Onset Date: ~2021 Comment: ([employer]orje DCPP - placed 06/18/22) Code(s): Z95.0 - Presence of cardiac pacemaker Coding Level of Care Code Est Pt Level 4 (93593) Diagnoses CAD (coronary artery disease) I25.10 SVT (supraventricular tachycardia) I47.1 Pacemaker Z95.0 CPT Codes Cardiac Device Check - Cardiac Device 2: 11970-DE Cardiac Device Check, pacemaker dual lead ([id number])
== END 2023-02-24 11:45 | disposition home or self-care (01) ==
PROVIDERS: PCP Internal Medicine; Visit Provider Internal Medicine Cardiovascular Disease
DX: I25.10 Atherosclerotic heart disease of native coronary artery without angina pectoris (principal); I47.1 Supraventricular tachycardia; Z95.0 Presence of cardiac pacemaker
CPT/HCPCS: 93280; 99214

== ENCOUNTER → 2023-02-24 11:17 | Outpatient (BNVA) | payer MEDICARE, SELFPAY | PROVIDERS: PCP Internal Medicine; Visit Provider Internal Medicine Cardiovascular Disease | DX: Z45.018 Encounter for adjustment and management of other part of cardiac pacemaker (principal); I25.10 Atherosclerotic heart disease of native coronary artery without angina pectoris; I47.1 Supraventricular tachycardia | CPT/HCPCS: 93280; 99212 ==

== ENCOUNTER 2023-03-01 14:23 | Outpatient (AMB) | payer MEDICARE, SELFPAY ==
--- NOTE | 2023-03-01 14:26 | A.OFFPC_ITS ---
Vital Signs 03/01/23 14:28 Height 5 ft 9 in Weight 210 lb 6 oz BMI 31.1 BP 130/80 Blood Pressure Location Rt brachial Position Sitting Pulse 62 Pulse Source Pulse Oximeter Pulse Oximetry (%) 96 Oxygen Delivery Method Room Air Intake Visit Reasons: Bruised ribs Intake Note: Patient is here today for bruised on left ribs, from a fall on 02/25/23. Vascular Specialists Required: No Research Program Coordinator: Not Required per policy Accompanied by: Self / Same As Patient Allergies BERNABE Inhibitors [BERNABE INHIBITORS] Allergy (Intermediate, Verified 03/01/23 14:28) DEPRESSION latex [LATEX] Allergy (Intermediate, Verified 03/01/23 14:28) RASH terazosin Allergy (Intermediate, Verified 03/01/23 14:28) hives, swollen lips and hoarseness pravastatin [Pravachol] Allergy (Unknown, Verified 03/01/23 14:28) unknown bee pollen [bee stings] Adverse Reaction (Severe, Verified 03/01/23 14:28) Anaphylaxis Beta-Blockers (Beta-Adrenergic Bloc [BETA-BLOCKERS (BETA-ADRENERGIC BLOC] Adverse Reaction (Intermediate, Verified 03/01/23 14:28) DECREASED HR, DEPRESSION amoxicillin Allergy (Intermediate, Uncoded 10/15/22 10:00) hives, swollen lips, and hoarseness cephlex: levofloxacin Allergy (Intermediate, Uncoded 10/15/22 10:00) hives, swollen lips, and hoarseness clindomycin Allergy (Intermediate, Uncoded 10/15/22 10:00) hives, swollen lips, and hoarseness Medication List - Last Reconciled 03/01/23 by Mckinley Choi MD amlodipine 2.5 mg PO DAILY aspirin (Adult Low Dose Aspirin) 81 mg PO DAILY bisoprolol fumarate 5 mg PO DAILY 90 days blood sugar diagnostic (Graph Story Verio test strips) 1 Strip Once a Day blood-glucose meter (Graph Story Verio Meter) to check blood sugars once a day diphenhydramine HCl (Benadryl Allergy) 25 mg PO TID PRN ezetimibe 10 mg PO DAILY finasteride 5 mg PO DAILY fluticasone propionate 50 mcg/actuation (Flonase Allergy Relief) 1 spray intranasal DAILY isosorbide mononitrate ER 60 mg PO DAILY lancets (Graph Story Delica Lancets) to check blood sugars once a day metformin ER 500 mg PO DAILY nitroglycerin 0.4 mg sublingual Q5M PRN ranolazine ER 500 mg PO BID rosuvastatin (Crestor) 40 mg PO DAILY 90 days Tobacco use date assessed: 01/11/23 Fall risk assessment: 1 Fall in past year Last assessed Fall Risk: 03/01/23 HPI Bruised ribs HPI Details fell 4 days ago left side of chest PFSH Medical History BPH (benign prostatic hyperplasia) Bradycardia (~2021) CAD (coronary artery disease) Cardiomyopathy COVID-19 vaccine administered Diabetes mellitus History of colon cancer (~2010) History of COVID-19 Hyperlipidemia associated with type 2 diabetes mellitus Hypertension Obesity Pacemaker (~2021) PVC (premature ventricular contraction) SVT (supraventricular tachycardia) Tubular adenoma of colon Surgical History History of cardiac cath History of cataract surgery (~2013) History of colonoscopy History of colostomy (~2010) History of colostomy reversal (~2011) History of coronary artery bypass graft x 3 (~1998) History of hernia repair (~2012) History of left knee surgery (~2003) History of pacemaker (~2021) History of partial colectomy (~2011) History of repair of rotator cuff History of right knee surgery History of tonsillectomy Family History Father Cancer, colon Mother Cancer of breast Cancer of lung Sister Cancer Social History Household Members: Spouse Housing: House Are you a primary daycare teacher to a significant other at home: No Do you presently have visiting nurse or other home services: No Alcohol intake: current Alcohol intake frequency: 0-2 drinks per day Patient Tobacco Use Status: Never used Tobacco e-Cigarette/Vaping Use: Never Used Second Hand Smoke Exposure: No service: No Current occupational status: retired Cognitive needs: No Hearing needs: No Vision needs: Yes (glasses) Questionnaire Thrive Questionnaire Date Thrive assessed: 01/11/23 JOE-7 AMB Questionnaire JOE-7 Date JOE - 7 assessed: 01/11/23 Source: Developed by Drs. Ivan Humphrey, Rachel Sigala, Bradley Rojas and colleagues, with an educational henry from [employer]. Review of Systems Const Denies chills, Denies headache(s) and Denies weight loss ENT Denies headache(s) Card Denies chest pain, Denies syncope, Denies irregular heart rhythm and Denies dyspnea Resp Denies chest congestion, Denies cough and Denies dyspnea GI Denies abdominal pain, Denies change in stool character, Denies nausea and Denies vomiting Musc Denies deformity and Denies joint swelling Neuro Denies syncope and Denies headache(s) Physical exam (Primary Care) Vital Signs: Last Vital Signs Pulse 62 03/01/23 14:28 BP 130/80 03/01/23 14:28 Pulse Ox 96 03/01/23 14:28 Oxygen Delivery Method Room Air 03/01/23 14:28 BMI result Body Mass Index 31.1 Tobacco/Smoking Status: Tobacco use Status Tobacco use date assessed 01/11/23 03/01/23 14:33 Patient Tobacco Use Status Never used Tobacco 03/01/23 14:33 e-Cigarette/Vaping Use Never Used 03/01/23 14:33 Thrive Assessment: Date of Thrive Assessment Date Thrive assessed 01/11/23 03/01/23 14:33 Const General: cooperative, comfortable and no acute distress Chest Other: bruised ribs on left Resp Effort & Inspection: normal respiratory effort Auscultation: clear to auscultation bilaterally Percussion: percussion normal Cardio Jugular venous distension: no JVD Rate: regular rate Rhythm: regular rhythm Assessment and Plan Assessment & Plan (1) Bruised ribs: Code(s): S20.219A - Contusion of unspecified front wall of thorax, initial encounter Plan: xr Orders: Orders XR ribs BI 3V Today W19.XXXA - Unspecified fall, initial encounter Coding Level of Care Code Est Pt Level 3 (17874) Diagnoses Bruised ribs S20.219A
[2023-03-01 14:28] VITALS: BP 130/80; PULSE 62; O2SAT 96; BMI 31.1
== END 2023-03-01 14:45 | disposition home or self-care (01) ==
PROVIDERS: PCP Internal Medicine; Visit Provider Internal Medicine
DX: S20.219A Contusion of unspecified front wall of thorax, initial encounter (principal)
CPT/HCPCS: 99213

== ENCOUNTER 2023-03-01 14:56 | Outpatient (REF) | payer MEDICARE, SELFPAY ==
--- NOTE | ~2023-03-01 | XR_ITS ---
EXAMINATION: XR RIBS, BILATERAL CLINICAL INFORMATION: Left rib pain status-post fall. COMPARISON: Chest radiographs dated 10/15/2022. TECHNIQUE: 3 views of the bilateral ribs were obtained, together with a frontal view of the chest. FINDINGS: Lungs are clear. No consolidation, pneumothorax, or pleural effusion. The cardiomediastinal silhouette and pulmonary vasculature are normal. There are intact median sternotomy wires. A dual-lead, dual-chamber pacemaker device shows no lead fracture or change in lead tip positions. Osseous structures are unremarkable. Ribs are intact. No fractures are identified. There are orthopedic anchors applied to the bilateral humeral heads. XR/XR ribs BI min 4V w CXR1V IMPRESSION: Unremarkable examination.
== END 2023-03-01 14:57 | disposition home or self-care (01) ==
LOC: HO.XRAY 14:56
PROVIDERS: PCP Internal Medicine; Visit Provider Internal Medicine
DX: R07.81 Pleurodynia (principal); Z91.81 History of falling
CPT/HCPCS: 71111

== ENCOUNTER 2023-04-04 09:33 | Outpatient (AMB) | payer MEDICARE, SELFPAY ==
[2023-03-31 07:35] VITALS: BP 100/58; BP 126/68; BMI 30.9
--- NOTE | 2023-04-04 09:36 | A.OFFVIS_ITS ---
Intake Vital Signs 04/04/23 09:42 Height 5 ft 9 in Weight 209 lb BMI 30.9 BP 122/68 Blood Pressure Location Lt brachial Position Sitting Pulse 55 Pulse Source Pulse Oximeter Intake Visit Reasons: 6 week follow up Intake Note: 6 week [address] up with [facility] device check. Hydrostatic Tubing Tester Required: No Accompanied by: Self / Same As Patient Allergies BERNABE Inhibitors [BERNABE INHIBITORS] Allergy (Intermediate, Verified 04/04/23 09:43) DEPRESSION latex [LATEX] Allergy (Intermediate, Verified 04/04/23 09:43) RASH terazosin Allergy (Intermediate, Verified 04/04/23 09:43) hives, swollen lips and hoarseness pravastatin [Pravachol] Allergy (Unknown, Verified 04/04/23 09:43) unknown bee pollen [bee stings] Adverse Reaction (Severe, Verified 04/04/23 09:43) Anaphylaxis Beta-Blockers (Beta-Adrenergic Bloc [BETA-BLOCKERS (BETA-ADRENERGIC BLOC] Adverse Reaction (Intermediate, Verified 04/04/23 09:43) DECREASED HR, DEPRESSION amoxicillin Allergy (Intermediate, Uncoded 04/04/23 09:43) hives, swollen lips, and hoarseness cephlex: levofloxacin Allergy (Intermediate, Uncoded 04/04/23 09:43) hives, swollen lips, and hoarseness clindomycin Allergy (Intermediate, Uncoded 04/04/23 09:43) hives, swollen lips, and hoarseness Medication List - Last Reconciled 04/04/23 by Marquise Espinoza MD amlodipine 2.5 mg PO DAILY aspirin (Adult Low Dose Aspirin) 81 mg PO DAILY bisoprolol fumarate 10 mg PO DAILY blood sugar diagnostic ([place] Verio test strips) 1 Strip Once a Day blood-glucose meter ([place] Verio Meter) to check blood sugars once a day diphenhydramine HCl (Benadryl Allergy) 25 mg PO TID PRN ezetimibe 10 mg PO DAILY finasteride 5 mg PO DAILY fluticasone propionate 50 mcg/actuation (Flonase Allergy Relief) 1 spray intranasal DAILY isosorbide mononitrate ER 60 mg PO DAILY lancets (Prestodiag Delica Lancets) to check blood sugars once a day metformin ER 500 mg PO BID nitroglycerin 0.4 mg sublingual Q5M PRN ranolazine ER 500 mg PO BID HPI HPI Comments History of Present Illness Details Kartik comes for follow-up. He said he does not have any exertional shortness of breath on current medications. However he gets fatigued when he is doing rapid tentative upper body action. He denies any symptoms of lightheadedness, syncope. Denies any prolonged palpitation irregular heartbeat. No chest discomfort. Comes for follow-up. [facility] Medical History BPH (benign prostatic hyperplasia) Bradycardia (~2021) CAD (coronary artery disease) Cardiomyopathy COVID-19 vaccine administered Diabetes mellitus History of colon cancer (~2010) History of COVID-19 Hyperlipidemia associated with type 2 diabetes mellitus Hypertension Obesity Pacemaker (~2021) PVC (premature ventricular contraction) SVT (supraventricular tachycardia) Tubular adenoma of colon Surgical History History of cardiac cath History of cataract surgery (~2013) History of colonoscopy History of colostomy (~2010) History of colostomy reversal (~2011) History of coronary artery bypass graft x 3 (~1998) History of hernia repair (~2012) History of left knee surgery (~2003) History of pacemaker (~2021) History of partial colectomy (~2011) History of repair of rotator cuff History of right knee surgery History of tonsillectomy Family History Father Cancer, colon Mother Cancer of breast Cancer of lung Sister Cancer Social History Household Members: Spouse Housing: House Are you a primary critical care unit nurse to a significant other at home: No Do you presently have visiting nurse or other home services: No Alcohol intake: current Alcohol intake frequency: 0-2 drinks per day Patient Tobacco Use Status: Never used Tobacco e-Cigarette/Vaping Use: Never Used Second Hand Smoke Exposure: No service: No Current occupational status: retired Cognitive needs: No Hearing needs: No Vision needs: Yes (glasses) Review of Systems Const Denies weakness ENT Denies dizziness Card Denies chest pain, Denies chest pain with activity, Denies syncope, Denies rapid heart rate, Denies pedal edema, Denies edema, Denies leg edema, Denies lightheadedness, Denies palpitations, Denies dyspnea, Denies dyspnea on exertion and Denies orthopnea Resp Denies cough, Denies dyspnea and Denies dyspnea on exertion GI Denies hematochezia and Denies change in stool character Musc Denies abnormal gait, Denies muscle cramps, Denies muscle weakness, Denies numbness, Denies radiating pain into limb and Denies tingling Neuro Denies abnormal gait, Denies dizziness, Denies syncope, Denies numbness, Denies tingling and Denies weakness Endo Denies palpitations Physical Exam Vital Signs: Last Vital Signs Pulse 55 04/04/23 09:42 BP 122/68 04/04/23 09:42 BMI result Body Mass Index 30.9 Office Procedures Cardiac Device Check Cardiac Device Check Details: Dual-chamber [place] [facility] pacemaker in place. Programmed in DDDR at 60 beats per minute. Atrial pacing 82% of the time. Minimal ventricular pacing. Few high ventricular rate episode consistent with SVT with no symptoms. Atrial ventricular capture thresholds are adequate and in our capture mode. Atrial ventricular sensing is excellent. Pacing lead impedance is stable. Battery life is excellent about 10 and half years [id number] Cardiac Device Check, pacemaker dual lead Procedure code (CPT) selection complete Assessment & Plan Assessment & Plan (1) CAD (coronary artery disease): Comment: (Hx CABG x 3 - FIELDS to LAD, radial graft to Ramus, free GOYO to RCA - 1998) Code(s): I25.10 - Atherosclerotic heart disease of three affiliated coronary artery without angina pectoris Plan: CAD status post coronary artery bypass grafting with patent graft with progression three affiliated coronary disease with occluded circumflex territory which c ould not be opened up locally at [facility]. However patient symptoms exertional shortness of breath his anginal equivalent has resolved with current medical therapy. Continue the same. Importance of continued physical activity and continue cardiac rehab was discussed. His symptoms of fatigue are more likely related to deconditioning advised to maintain regular and repetitive physical exercise as tolerated. Overall discussed with him that medical therapy has similar outcomes to PCI in the long run as long as symptoms are controlled. He understands and agrees. Continue aggressive vascular risk factor modification. Goal LDL closer to 50 mg/dL. Blood pressure is currently well optimized. Diabetes under your care with goal hemoglobin A1c less than 7%. (2) Pacemaker: Onset Date: ~2021 Comment: ([facility] DCPP - placed 06/18/22) Code(s): Z95.0 - Presence of cardiac pacemaker Plan: Cardiac pacemaker in-situ for sick sinus syndrome. Working well. Pacing about 82% time in the atrium. The chronotropic competence has been reprogrammed before and working well. Continue monitor remotely every 3 months and follow up in the clinic in 6 months time. (3) SVT (supraventricular tachycardia): Code(s): I47.1 - Supraventricular tachycardia Plan: Supraventricular tachycardia. Currently suppressed on bisoprolol therapy. Continue the same. Has done well with control of her is SVT. No further therapy is recommended. Avoidance of stimulants was discussed. Will follow up in the clinic in 6 months time, sooner p.r.n.. Thank you for allowing me to partake in his care Medications: Changed From bisoprolol fumarate 5 mg PO DAILY 90 tabs 3RF 90 days To bisoprolol fumarate 10 mg PO DAILY From metformin ER 500 mg PO DAILY 90 tabs 8RF To metformin ER 500 mg PO BID Coding Level of Care Code Est Pt Level 4 (14254) Diagnoses CAD (coronary artery disease) I25.10 Pacemaker Z95.0 SVT (supraventricular tachycardia) I47.1 CPT Codes Cardiac Device Check - Cardiac Device 2: 47244-[id number] Cardiac Device Check, pacemaker dual lead ([id number])
[2023-04-04 09:42] VITALS: BP 122/68; PULSE 55; BMI 30.9
== END 2023-04-04 09:59 | disposition home or self-care (01) ==
PROVIDERS: PCP Internal Medicine; Referring Provider Internal Medicine; Visit Provider Internal Medicine Cardiovascular Disease
DX: I25.10 Atherosclerotic heart disease of native coronary artery without angina pectoris (principal); I47.1 Supraventricular tachycardia; Z95.0 Presence of cardiac pacemaker
CPT/HCPCS: 93280; 99214

== ENCOUNTER → 2023-04-04 09:33 | Outpatient (BNVA) | payer MEDICARE, SELFPAY ==
[2023-03-31 07:35] VITALS: BP 100/58; BP 126/68; BMI 30.9
== END ==
PROVIDERS: PCP Internal Medicine; Referring Provider Internal Medicine; Visit Provider Internal Medicine Cardiovascular Disease
DX: I25.10 Atherosclerotic heart disease of native coronary artery without angina pectoris (principal); I47.1 Supraventricular tachycardia; Z45.018 Encounter for adjustment and management of other part of cardiac pacemaker; Z79.899 Other long term (current) drug therapy
CPT/HCPCS: 93280; 99212

== ENCOUNTER → 2023-04-05 23:59 | Outpatient (BNV) | payer MEDICARE, SELFPAY ==
[2023-03-31 07:35] VITALS: BP 100/58; BP 126/68; BMI 30.9
--- NOTE | 2023-04-07 11:28 | A.OFFVIS_ITS ---
Intake Intake Visit Reasons: Remote device check- [facility] Allergies BERNABE Inhibitors [BERNABE INHIBITORS] Allergy (Intermediate, Verified 04/04/23 09:43) DEPRESSION latex [LATEX] Allergy (Intermediate, Verified 04/04/23 09:43) RASH terazosin Allergy (Intermediate, Verified 04/04/23 09:43) hives, swollen lips and hoarseness pravastatin [Pravachol] Allergy (Unknown, Verified 04/04/23 09:43) unknown bee pollen [bee stings] Adverse Reaction (Severe, Verified 04/04/23 09:43) Anaphylaxis Beta-Blockers (Beta-Adrenergic Bloc [BETA-BLOCKERS (BETA-ADRENERGIC BLOC] Adverse Reaction (Intermediate, Verified 04/04/23 09:43) DECREASED HR, DEPRESSION amoxicillin Allergy (Intermediate, Uncoded 04/04/23 09:43) hives, swollen lips, and hoarseness cephlex: levofloxacin Allergy (Intermediate, Uncoded 04/04/23 09:43) hives, swollen lips, and hoarseness clindomycin Allergy (Intermediate, Uncoded 04/04/23 09:43) hives, swollen lips, and hoarseness [facility] Medical History BPH (benign prostatic hyperplasia) Bradycardia (~2021) CAD (coronary artery disease) Cardiomyopathy COVID-19 vaccine administered Diabetes mellitus History of colon cancer (~2010) History of COVID-19 Hyperlipidemia associated with type 2 diabetes mellitus Hypertension Obesity Pacemaker (~2021) PVC (premature ventricular contraction) SVT (supraventricular tachycardia) Tubular adenoma of colon Surgical History History of cardiac cath History of cataract surgery (~2013) History of colonoscopy History of colostomy (~2010) History of colostomy reversal (~2011) History of coronary artery bypass graft x 3 (~1998) History of hernia repair (~2012) History of left knee surgery (~2003) History of pacemaker (~2021) History of partial colectomy (~2011) History of repair of rotator cuff History of right knee surgery History of tonsillectomy Family History Father Cancer, colon Mother Cancer of breast Cancer of lung Sister Cancer Social History Household Members: Spouse Housing: House Are you a primary cattle care worker to a significant other at home: No Do you presently have visiting nurse or other home services: No Alcohol intake: current Alcohol intake frequency: 0-2 drinks per day Patient Tobacco Use Status: Never used Tobacco e-Cigarette/Vaping Use: Never Used Second Hand Smoke Exposure: No service: No Current occupational status: retired Cognitive needs: No Hearing needs: No Vision needs: Yes (glasses) Office Procedures Cardiac Device Check Cardiac Device Check Details: Remote pacemaker report generated 04/05/2023. Pacemaker function is adequate [id number] Cardiac Device Interrogation, pacemaker Procedure code (CPT) selection complete Coding Level of Care Code Procedure Only Diagnoses CPT Codes Cardiac Device Check - Cardiac Device 12: [id number] Cardiac Device Interrogation, pacemaker ([id number])
== END ==
PROVIDERS: PCP Internal Medicine; Visit Provider Internal Medicine Cardiovascular Disease
DX: I47.1 Supraventricular tachycardia (principal); Z95.0 Presence of cardiac pacemaker
CPT/HCPCS: 93294

== ENCOUNTER 2023-04-27 14:13 | Outpatient (AMB) | payer MEDICARE, SELFPAY ==
[2023-03-31 07:35] VITALS: BP 100/58; BP 126/68; BMI 30.9
--- NOTE | 2023-04-27 14:15 | MHC.PC.OV ---
Vital Signs 04/27/23 14:16 Height 5 ft 9 in Weight 203 lb BMI 30.0 BP 110/62 Blood Pressure Location Lt brachial Position Sitting Pulse 62 Pulse Source Pulse Oximeter Pulse Oximetry (%) 98 Oxygen Delivery Method Room Air Intake Visit Reasons: 3M follow up Feed Manager: Not Required per policy Accompanied by: Self / Same As Patient Allergies BERNABE Inhibitors [BERNABE INHIBITORS] Allergy (Intermediate, Verified 04/27/23 14:16) DEPRESSION latex [LATEX] Allergy (Intermediate, Verified 04/27/23 14:16) RASH terazosin Allergy (Intermediate, Verified 04/27/23 14:16) hives, swollen lips and hoarseness pravastatin [Pravachol] Allergy (Unknown, Verified 04/27/23 14:16) unknown bee pollen [bee stings] Adverse Reaction (Severe, Verified 04/27/23 14:16) Anaphylaxis Beta-Blockers (Beta-Adrenergic Bloc [BETA-BLOCKERS (BETA-ADRENERGIC BLOC] Adverse Reaction (Intermediate, Verified 04/27/23 14:16) DECREASED HR, DEPRESSION amoxicillin Allergy (Intermediate, Uncoded 04/27/23 14:16) hives, swollen lips, and hoarseness cephlex: levofloxacin Allergy (Intermediate, Uncoded 04/27/23 14:16) hives, swollen lips, and hoarseness clindomycin Allergy (Intermediate, Uncoded 04/27/23 14:16) hives, swollen lips, and hoarseness Medication List - Last Reconciled 04/28/23 by Mckinley Choi MD amlodipine 2.5 mg PO DAILY aspirin (Adult Low Dose Aspirin) 81 mg PO DAILY bisoprolol fumarate 10 mg PO DAILY blood sugar diagnostic ([employer] Verio test strips) 1 Strip Once a Day blood-glucose meter ([employer] Verio Meter) to check blood sugars once a day diphenhydramine HCl (Benadryl Allergy) 25 mg PO TID PRN ezetimibe 10 mg PO DAILY finasteride 5 mg PO DAILY fluticasone propionate 50 mcg/actuation (Flonase Allergy Relief) 1 spray intranasal DAILY isosorbide mononitrate ER 60 mg PO DAILY lancets ([employer] Delica Lancets) to check blood sugars once a day metformin ER 500 mg PO BID nitroglycerin 0.4 mg sublingual Q5M PRN ranolazine ER 500 mg PO BID rosuvastatin (Crestor) 40 mg PO DAILY Tobacco use date assessed: 01/11/23 Fall risk assessment: No Falls in past year Last assessed Fall Risk: 04/27/23 Dental Screening Dental Screen Date: 04/27/23 Did you have a dental visit in the last 12 months?: Yes Did you have a dental problem in the last 6 months where you did not have access to dental care?: No Was dental information given to patient?: Patient has dentist HPI 3M follow up HPI Details DM HTN and hyperlipidemia; stable and compliant [facility] Medical History Pacemaker (~2021) Bradycardia (~2021) History of COVID-19 BPH (benign prostatic hyperplasia) Hypertension Obesity Hyperlipidemia associated with type 2 diabetes mellitus Tubular adenoma of colon COVID-19 vaccine administered Diabetes mellitus History of colon cancer (~2010) Cardiomyopathy PVC (premature ventricular contraction) SVT (supraventricular tachycardia) CAD (coronary artery disease) Surgical History History of pacemaker (~2021) History of coronary artery bypass graft x 3 (~1998) History of hernia repair (~2012) History of colonoscopy History of left knee surgery (~2003) History of right knee surgery History of colostomy (~2010) History of partial colectomy (~2011) History of tonsillectomy History of repair of rotator cuff History of cataract surgery (~2013) History of cardiac cath History of colostomy reversal (~2011) Family History Father Cancer, colon Mother Cancer of breast Cancer of lung Sister Cancer Social History Household Members: Spouse Housing: House Are you a primary specialist wound care to a significant other at home: No Do you presently have visiting nurse or other home services: No Alcohol intake: current Alcohol intake frequency: 0-2 drinks per day Patient Tobacco Use Status: Never used Tobacco e-Cigarette/Vaping Use: Never Used Second Hand Smoke Exposure: No service: No Current occupational status: retired Cognitive needs: No Hearing needs: No Vision needs: Yes (glasses) Questionnaire PHQ-9 Over the last 2 weeks, how often have you been bothered by any of the following problems? 1. Little interest or pleasure in doing things: not at all 2. Feeling down, depressed, or hopeless: not at all 3. Trouble falling or staying asleep, or sleeping too much: not at all 4. Feeling tired or having little energy: not at all 5. Poor appetite or overeating: not at all 6. Feeling bad about yourself - or that you are a failure or have let yourself or your family down: not at all 7. Trouble concentrating on things, such as reading the newspaper or watching television: not at all 8. Moving or speaking so slowly that other people could have noticed. Or the opposite - being so fidgety or restless that you have been moving around a lot more than usual: not at all 9. Thoughts that you would be better off or of hurting yourself in some way: not at all Total score: 0 Depression Screening Interpretation: Negative [id number] - PHQ-9 Billing: Yes Source: Developed by Drs. Ivan Humphrey, Bradley Kang and colleagues, with an educational henry from [employer]. Thrive Questionnaire Date Thrive assessed: 01/11/23 AUDIT C Alcohol Use Questionnaire (AUDIT-C) 1. How often do you have a drink containing alcohol?: Monthly or less 2. How many drinks containing alcohol do you have on a typical day when you are drinking?: 1 or 2 3. How often do you have six or more drinks on one occasion?: Never Total Score: 1 Score Reviewed/Action Taken: Yes JOE-7 AMB Questionnaire JOE-7 Date JOE - 7 assessed: 01/11/23 Source: Developed by Drs. Ivan Humphrey, Bradley Kang and colleagues, with an educational henry from [employer]. Review of Systems Const Denies chills, Denies headache(s) and Denies weight loss ENT Denies headache(s) Card Denies chest pain, Denies syncope, Denies irregular heart rhythm and Denies dyspnea Resp Denies chest congestion, Denies cough and Denies dyspnea GI Denies abdominal pain, Denies change in stool character, Denies nausea and Denies vomiting Musc Denies deformity and Denies joint swelling Neuro Denies syncope and Denies headache(s) Physical exam (Primary Care) Vital Signs: Last Vital Signs Pulse 62 04/27/23 14:16 BP 110/62 04/27/23 14:16 Pulse Ox 98 04/27/23 14:16 Oxygen Delivery Method Room Air 04/27/23 14:16 BMI result Body Mass Index 30.0 Tobacco/Smoking Status: Tobacco use Status Tobacco use date assessed 01/11/23 04/27/23 14:15 Patient Tobacco Use Status Never used Tobacco 04/27/23 14:15 e-Cigarette/Vaping Use Never Used 04/27/23 14:15 PHQ-9: PHQ-9 Score PHQ-9: Total score 0 04/27/23 14:42 Depression Screening Interpretation: Negative Thrive Assessment: Date of Thrive Assessment Date Thrive assessed 01/11/23 04/27/23 14:15 Const General: cooperative, comfortable, no acute distress and alert Neck Neck: Yes no lymphadenopathy Thyroid: Thyroid normal Resp Effort & Inspection: normal respiratory effort Auscultation: clear to auscultation bilaterally Percussion: percussion normal Cardio Jugular venous distension: no JVD Palpation: normal PMI Rate: regular rate Rhythm: regular rhythm Heart sounds: S1 normal heart sound present and S2 normal heart sound present GI Inspection: Yes normal to inspection Palpation (GI): No hepatosplenomegaly present Skin General skin exam: no rashes or lesions noted Extrem General: Yes no clubbing, cyanosis or edema Results AMB Hemoglobin A1c AMB Hemoglobin A1c 7.4 % Last Edit by SAGE Chaudhary on 04/27/23 14:42 Results Reviewed Results Reviewed: Laboratory Last Values Hgb A1c (Clinic) 7.4 % (4.0-6.0) H 04/27/23 14:17 Assessment and Plan Assessment & Plan (1) Hypertension: Code(s): I10 - Essential (primary) hypertension Plan: stable; do labs (2) Hyperlipidemia associated with type 2 diabetes mellitus: Code(s): E11.69 - Type 2 diabetes mellitus with other specified complication; E78.5 - Hyperlipidemia, unspecified Plan: stable; same rx (3) Diabetes mellitus with coincident hypertension: Code(s): E11.9 - Type 2 diabetes mellitus without complications; I10 - Essential (primary) hypertension Plan: stable; same rx Orders: Orders Glucose Fasting Today R73.9 - Hyperglycemia, unspecified AMB Hemoglobin A1c 04/27/23 E11.9 - Type 2 diabetes mellitus without complications Hemoglobin A1c Today R73.9 - Hyperglycemia, unspecified Lipid Panel Today E78.5 - Hyperlipidemia, unspecified Medications: New finasteride 5 mg PO DAILY 90 tabs 3RF Coding Level of Care Code Est Pt Level 4 (49701) Diagnoses Hypertension I10 Hyperlipidemia associated with type 2 diabetes mellitus E11.69; E78.5 Diabetes mellitus with coincident hypertension E11.9; I10
[2023-04-27 14:16] VITALS: BP 110/62; PULSE 62; O2SAT 98
== END 2023-04-27 14:37 | disposition home or self-care (01) ==
PROVIDERS: PCP Internal Medicine; Visit Provider Internal Medicine
DX: E11.9 Type 2 diabetes mellitus without complications (principal)
CPT/HCPCS: 83036; 99214

== ENCOUNTER → 2023-07-05 23:59 | Outpatient (BNV) | payer MEDICARE, SELFPAY ==
[2023-03-31 07:35] VITALS: BP 100/58; BP 126/68
[2023-06-20 10:49] VITALS: BP 90/50; BMI 30.9
--- NOTE | 2023-07-05 18:20 | A.OFFVIS_ITS ---
Intake Intake Visit Reasons: Remote Device Check- [facility] Allergies BERNABE Inhibitors [BERNABE INHIBITORS] Allergy (Intermediate, Verified 04/27/23 14:16) DEPRESSION latex [LATEX] Allergy (Intermediate, Verified 04/27/23 14:16) RASH terazosin Allergy (Intermediate, Verified 04/27/23 14:16) hives, swollen lips and hoarseness pravastatin [Pravachol] Allergy (Unknown, Verified 04/27/23 14:16) unknown bee pollen [bee stings] Adverse Reaction (Severe, Verified 04/27/23 14:16) Anaphylaxis Beta-Blockers (Beta-Adrenergic Bloc [BETA-BLOCKERS (BETA-ADRENERGIC BLOC] Adverse Reaction (Intermediate, Verified 04/27/23 14:16) DECREASED HR, DEPRESSION amoxicillin Allergy (Intermediate, Uncoded 04/27/23 14:16) hives, swollen lips, and hoarseness cephlex: levofloxacin Allergy (Intermediate, Uncoded 04/27/23 14:16) hives, swollen lips, and hoarseness clindomycin Allergy (Intermediate, Uncoded 04/27/23 14:16) hives, swollen lips, and hoarseness [facility] Medical History Pacemaker (~2021) Bradycardia (~2021) History of COVID-19 BPH (benign prostatic hyperplasia) Hypertension Obesity Hyperlipidemia associated with type 2 diabetes mellitus Tubular adenoma of colon COVID-19 vaccine administered Diabetes mellitus History of colon cancer (~2010) Cardiomyopathy PVC (premature ventricular contraction) SVT (supraventricular tachycardia) CAD (coronary artery disease) Surgical History History of pacemaker (~2021) History of coronary artery bypass graft x 3 (~1998) History of hernia repair (~2012) History of colonoscopy History of left knee surgery (~2003) History of right knee surgery History of colostomy (~2010) History of partial colectomy (~2011) History of tonsillectomy History of repair of rotator cuff History of cataract surgery (~2013) History of cardiac cath History of colostomy reversal (~2011) Family History Father Cancer, colon Mother Cancer of breast Cancer of lung Sister Cancer Social History Household Members: Spouse Housing: House Are you a primary client care representative to a significant other at home: No Do you presently have visiting nurse or other home services: No Alcohol intake: current Alcohol intake frequency: 0-2 drinks per day Comment: previously medicated with po tylenol Patient Tobacco Use Status: Never used Tobacco e-Cigarette/Vaping Use: Never Used Second Hand Smoke Exposure: No service: No Current occupational status: retired Cognitive needs: No Hearing needs: No Vision needs: Yes (glasses) Office Procedures Cardiac Device Check Cardiac Device Check Details: Remote pacemaker report generated 06/27/2023. Pacemaker function is adequate [id number] Cardiac Device Interrogation, pacemaker Procedure code (CPT) selection complete Coding Level of Care Code Procedure Only CPT Codes Cardiac Device Check - Cardiac Device 12: [id number] Cardiac Device Interrogation, pacemaker ([id number])
== END ==
PROVIDERS: PCP Internal Medicine; Visit Provider Internal Medicine Cardiovascular Disease
DX: I47.10 Supraventricular tachycardia, unspecified (principal); Z95.0 Presence of cardiac pacemaker
CPT/HCPCS: 93294

== ENCOUNTER 2023-07-27 11:40 | Outpatient (AMB) | payer MEDICARE, SELFPAY ==
[2023-03-31 07:35] VITALS: BP 100/58; BP 126/68; BMI 30.9
[2023-06-20 10:49] VITALS: BP 90/50; BMI 30.9
[2023-07-20 15:41] VITALS: BP 90/50; BMI 30.9
[2023-07-27 11:42] VITALS: BP 108/80; PULSE 63; O2SAT 93; BMI 30.9
--- NOTE | 2023-07-27 11:42 | A.OFFPC_ITS ---
Vital Signs 07/27/23 11:42 Height 5 ft 9 in Weight 209 lb BMI 30.9 BP 108/80 Blood Pressure Location Lt brachial Position Sitting Pulse 63 Pulse Source Pulse Oximeter Pulse Oximetry (%) 93 Oxygen Delivery Method Room Air Intake Visit Reasons: 3mth f/u Finishing Machine Operator: Not Required per policy Accompanied by: Self / Same As Patient Allergies BERNABE Inhibitors [BERNABE INHIBITORS] Allergy (Intermediate, Verified 07/27/23 11:43) DEPRESSION latex [LATEX] Allergy (Intermediate, Verified 07/27/23 11:43) RASH terazosin Allergy (Intermediate, Verified 07/27/23 11:43) hives, swollen lips and hoarseness pravastatin [Pravachol] Allergy (Unknown, Verified 07/27/23 11:43) unknown bee pollen [bee stings] Adverse Reaction (Severe, Verified 07/27/23 11:43) Anaphylaxis Beta-Blockers (Beta-Adrenergic Bloc [BETA-BLOCKERS (BETA-ADRENERGIC BLOC] Adverse Reaction (Intermediate, Verified 07/27/23 11:43) DECREASED HR, DEPRESSION amoxicillin Allergy (Intermediate, Uncoded 07/27/23 11:43) hives, swollen lips, and hoarseness cephlex: levofloxacin Allergy (Intermediate, Uncoded 07/27/23 11:43) hives, swollen lips, and hoarseness clindomycin Allergy (Intermediate, Uncoded 07/27/23 11:43) hives, swollen lips, and hoarseness Medication List - Last Reconciled 07/27/23 by Mckinley Choi MD amlodipine 2.5 mg PO DAILY aspirin (Adult Low Dose Aspirin) 81 mg PO DAILY bisoprolol fumarate 10 mg PO DAILY blood sugar diagnostic (Hello [employer] Verio test strips) 1 Strip Once a Day blood-glucose meter ([employer] Verio Meter) to check blood sugars once a day diphenhydramine HCl (Benadryl Allergy) 25 mg PO TID PRN ezetimibe 10 mg PO DAILY finasteride 5 mg PO DAILY fluticasone propionate 50 mcg/actuation (Flonase Allergy Relief) 1 spray intranasal DAILY isosorbide mononitrate ER 60 mg PO DAILY lancets ([employer] Delica Lancets) to check blood sugars once a day metformin ER 500 mg PO BID nitroglycerin 0.4 mg sublingual Q5M PRN ranolazine ER 500 mg PO BID rosuvastatin (Crestor) 40 mg PO DAILY Tobacco use date assessed: 01/11/23 Fall risk assessment: No Falls in past year Last assessed Fall Risk: 07/27/23 Dental Screening Dental Screen Date: 07/27/23 Did you have a dental visit in the last 12 months?: Yes Did you have a dental problem in the last 6 months where you did not have access to dental care?: No Was dental information given to patient?: Patient has dentist HPI 3mth f/u HPI Details HTN hyperlip and DM; A1C 7.4 PFSH Medical History Pacemaker (~2021) Bradycardia (~2021) History of COVID-19 BPH (benign prostatic hyperplasia) Hypertension Obesity Hyperlipidemia associated with type 2 diabetes mellitus Tubular adenoma of colon COVID-19 vaccine administered Diabetes mellitus History of colon cancer (~2010) Cardiomyopathy PVC (premature ventricular contraction) SVT (supraventricular tachycardia) CAD (coronary artery disease) Surgical History History of pacemaker (~2021) History of coronary artery bypass graft x 3 (~1998) History of hernia repair (~2012) History of colonoscopy History of left knee surgery (~2003) History of right knee surgery History of colostomy (~2010) History of partial colectomy (~2011) History of tonsillectomy History of repair of rotator cuff History of cataract surgery (~2013) History of cardiac cath History of colostomy reversal (~2011) Family History Father Cancer, colon Mother Cancer of breast Cancer of lung Sister Cancer Social History Household Members: Spouse Housing: House Are you a primary acute care physical therapist to a significant other at home: No Do you presently have visiting nurse or other home services: No Alcohol intake: current Alcohol intake frequency: 0-2 drinks per day Comment: previously medicated with po tylenol Patient Tobacco Use Status: Never used Tobacco e-Cigarette/Vaping Use: Never Used Second Hand Smoke Exposure: No service: No Current occupational status: retired Cognitive needs: No Hearing needs: No Vision needs: Yes (glasses) Questionnaire Thrive Questionnaire Date Thrive assessed: 01/11/23 JOE-7 AMB Questionnaire JOE-7 Date JOE - 7 assessed: 01/11/23 Source: Developed by Drs. Ivan Humphrey, Rachel Sigala, Bradley Rojas and colleagues, with an educational henry from [employer]. Review of Systems Const Denies chills, Denies headache(s) and Denies weight loss ENT Denies headache(s) Card Denies chest pain, Denies syncope, Denies irregular heart rhythm and Denies dyspnea Resp Denies chest congestion, Denies cough and Denies dyspnea GI Denies abdominal pain, Denies change in stool character, Denies nausea and Denies vomiting Musc Denies deformity and Denies joint swelling Neuro Denies syncope and Denies headache(s) Physical exam (Primary Care) Vital Signs: Last Vital Signs Pulse 63 07/27/23 11:42 BP 108/80 07/27/23 11:42 Pulse Ox 93 07/27/23 11:42 Oxygen Delivery Method Room Air 07/27/23 11:42 BMI result Body Mass Index 30.9 Tobacco/Smoking Status: Tobacco use Status Tobacco use date assessed 01/11/23 07/27/23 11:43 Patient Tobacco Use Status Never used Tobacco 07/27/23 11:43 e-Cigarette/Vaping Use Never Used 07/27/23 11:43 Thrive Assessment: Date of Thrive Assessment Date Thrive assessed 01/11/23 07/27/23 11:43 Const General: cooperative, comfortable, no acute distress and alert Neck Neck: Yes no lymphadenopathy Thyroid: Thyroid normal Resp Effort & Inspection: normal respiratory effort Auscultation: clear to auscultation bilaterally Percussion: percussion normal Cardio Jugular venous distension: no JVD Palpation: normal PMI Rate: regular rate Rhythm: regular rhythm Heart sounds: S1 normal heart sound present and S2 normal heart sound present GI Inspection: Yes normal to inspection Palpation (GI): No hepatosplenomegaly present Skin General skin exam: no rashes or lesions noted Extrem General: Yes no clubbing, cyanosis or edema Assessment and Plan Assessment & Plan (1) Diabetes mellitus with coincident hypertension: Code(s): E11.9 - Type 2 diabetes mellitus without complications; I10 - Essential (alfreda neela) hypertension Plan: increase rx (2) Hypertension: Code(s): I10 - Essential (primary) hypertension Plan: stable; same rx (3) Hyperlipidemia associated with type 2 diabetes mellitus: Code(s): E11.69 - Type 2 diabetes mellitus with other specified complication; E78.5 - Hyperlipidemia, unspecified Plan: stable Orders: Orders AMB Hemoglobin A1c Today E11.9 - Type 2 diabetes mellitus without complications Lipid Panel Today E78.5 - Hyperlipidemia, unspecified Glucose Fasting Today R73.9 - Hyperglycemia, unspecified Hemoglobin A1c Today R73.9 - Hyperglycemia, unspecified Medications: Refilled azithromycin take 500 mg today (day 1), then 250 mg for 4 days (days 2-5) PO 6 tabs 0RF Coding Level of Care Code Est Pt Level 4 (44316) Diagnoses Diabetes mellitus with coincident hypertension E11.9; I10 Hypertension I10 Hyperlipidemia associated with type 2 diabetes mellitus E11.69; E78.5
== END 2023-07-27 12:05 | disposition home or self-care (01) ==
PROVIDERS: PCP Internal Medicine; Visit Provider Internal Medicine
DX: E11.9 Type 2 diabetes mellitus without complications (principal); I10 Essential (primary) hypertension; E11.69 Type 2 diabetes mellitus with other specified complication; E78.5 Hyperlipidemia, unspecified
CPT/HCPCS: 83036; 99214

== ENCOUNTER 2023-08-09 08:30 | Outpatient (RCR) | payer MEDICARE, SELFPAY ==
[2023-03-31 07:35] VITALS: BP 100/58; BP 126/68; BMI 30.9
--- NOTE | 2023-03-31 11:51 | MHC.CR.ITI ---
[address] [phone] F: [phone] Please see additional notes from [facility] Initial Assessment/ITP Cardiac Rehab Initial Assessment/ITP Start: 03/31/23 07:35 Freq: Status: Active Protocol: Activity Type Activity Date Activity User E-sign Co-sign Detail Recorded Client Recorded Date Recorded By Document 03/31/23 07:35 GLORIA Desktop 03/31/23 07:55 GLORIA 03/31/23 07:35 Cardiac Rehab ITP Initial [Excercise] -Firearms Assembly Supervisor Required No -Preferred Language Frisian -Number of sessions approved 36 -Diagnosis Current Stable Angina I20.9, Heart Transplant Z94. 1 -Other Diagnosis CABG, Systolic CHF/ Cardiomyopathy, EF 40-45%, Dual Lead Pacemaker, DM -Comments Other history includes Colon CA, HLD, HTN, Obesity, PVC, SVT, L and R knee surgery, repair of Rotator Cuff. Pacemaker is DDDR at 60 [Functional Assessment] -6 Min Walk (distance in ft) 1,700 -METS Achieved 3.47 -Resting HR 60 -Resting BP 100/58 -Resting SpO2 96 -Exercise HR 90 -Exercise BP 126/68 -Exercise SpO2 97 -RPE 12 -Dyspnea Yes -ECG Summary Sinus/Pacing [Pre Rehab] -Pre Rehab Home Exercise Yes -Mode TM, Bike, Weights -Exercise Minutes/Day 60 -Exercise Days/Week 3 -Intensity Light -Comments Has been going to the gym. He does not feel that he is pushing himself enough. Also does yard work. SOB has been limiting his activities. -Risk Stratification: Intermediate Mild to Risk Participants moderate depressed LV function (EF 31 -49%) -Assistive Devices None -Comments Steady gait [Exercise Plan] [Intervention] -Exercise Prescription NuStep, Recumbent Bike, Recumbent Elliptical, Rower,Treadmill ,UBE,Upright Bike,Weights -Duration Intensity 36 Sessions -Frequency 2-3x/week -Angina with Exercise Yes [Exercise Education] -Exercise Education Exercise orientation, Exercise safety ,Home exercise, RPE,Self pulse checking,Signs and symptoms, Warmup/cooldown -Date Completed 03/31/23 -Initials CD -Education Summary Above-has been going to the gym 2-3 days a week. Cannot lift left arm totally over his head. Likes TM, Bike, leg press 100 pounds . Watermelon Harvesting Supervisor met with patient. RPE, warm up/cool down, safety discussed. States understanding. Oriented to gym [Exercise Goals] -Exercise Most Days of the Week Yes -Exercise 30-45 mins/day Yes -Target HR Range +20 - +30 beats above resting -Target RPE range 11-13 -Increase METS next 30 days 0.5-1.0 METS Every two weeks -METs goal by Discharge 4 METS -Comments Would like to come to [facility] twice a week at 8:30AM [Nutrition] [Hyperlipidemia] -Hyperlipidemia Yes -Are lab results available No [Diabetes] -Diabetes Yes -Diabetes Type 2 -Are lab results available No -Fasting Glucose 160 -HbA1C 6.80 -Monitors Glucose Yes -Frequency 2-3 times a week [Weight Management] -Height 5 ft 9 in -Weight 94.9 kg -BMI 30.89 -Recommended Diet Low fat,sugar, salt -Comments States he would like to reduce snacks, ice cream. Goal is 190 pounds. [Drug/Alchohol Use] -Drug/Alcohol Use Yes -Type wine -Amount 0-2 [Nutritional Screen (Rate Your Plate)] -Score 58 -Interpretation of Score Making Healthy Choices -Comments Would like to decrease snacking [Nutrition Plan] [Intervention] -Referral(s) Nutrition Brochures [Nutrition Education] -Nutrition Education Diabetes and excercise, Hydration, Nutrition, Reading food labels,Signs and symptoms of Hypo/Hyper- glycemia -Date Completed 03/31/23 -Initials CD -Education Summary Ears tingle when BS high. BS has not been low, but can let low if he has not had two meals. Gets fatigued when BS low. He will bring Glucometer to rehab. [Nutrition Goals] -Goals BMI < 25, Fasting BG 80- 120 mg/dL,HDL > 40,LDL < 70, Total CHOL < 200 -Weight goal 190 -Comments Currently averaging 210 pounds [Psycho/Social] -Stage of Change Action -Learning Barriers Hearing -Occupation Retired -PHQ9 Score 3 -Interpretation of Score Low -Plan of Action/Follow-up NA -Comments States he does not feel depressed or anxious. Has been having issues with his home in [place]. -Patient Self-Reports Depression No -Family Support Lives with spouse/others -Comments Has 5 grandchildren. Helped care for grandchildren when daughter had Breast CA [Psycho/Social Plan] [Intervention] -Referral(s) No consult needed [Psycho/Social Education] -Psycho/Social Education Advanced directives, Coping techniques, Depression and CAD,Positive support system, Relaxation Techniques, Reviewed PHQ9 Score w/pt, Sexuality and CAD,Signs and symptoms of CAD ,Stress management -Date Completed 03/31/23 -Initials CD -Education Summary Likes working out, gardening, visiting with grandkids [Psycho/Social Goals] -Goals Not Applicable [Other Core Comp] [Risk Factors] -Risk Factors Diabetes, Dyslipidemia, Hypertension, Obesity, Physical Inactivity -Comments: Expresses understanding of RF and medical issues. Bypass Grafts from 1998 open. They were unable to graft to area(CX,LM) that is giving him issues now . [Hypertension] -Hypertention Yes -Resting BP: 100/58 [Tobacco Use] -Patient Tobacco Use Status Never used Tobacco [Heart Failure] -Heart Failure Yes -EF% 40-45 -NYHF Class 1 -Dyspnea at Rest No -Dyspnea with Exercise Yes -Last Hospitalization NA -Comments Systolic CHF [Other Core Comp Plan] [Intervention] -Referral(s) Self Monitoring BP [Other Core Comp Education] -Other Core Comp Education HF Disease progression, Medication compliance,Risk factor modifications, RPD Scale/SOB management, Understanding hypertension -Date Completed 03/31/23 -Initials CD -Education Summary Checks BP at home intermittently, no issues with medication. Some medications make him tired. Expresses BP has been 120/80 [Other Core Comp Goals] -Goals Improve dyspnea ,Manage risk factors,Manage signs and symptoms of CHF ,Medication compliance, Resting BP < 130/80 -Comments SOB with aerobic activities, especially arm exercises. Noticed SOB, fatigue with painting [Medication Plan] [Intervention] -Medications Amlodipine 2. 5MG Daily ASA 81MG Daily Bisoprolol Fumarate 5MG Daily Benadryl 25MG TID PRN Ezetimide 10MG Daily Finasteride 5MG Daily Flonase 1 [place] Intranasal Daily Isosorbide Mononitrate ER 60 MG Daily Metformin 500MG Daily Nitro 0.4MG SL every 5 MIN. PRN Ranolazine ER 500MG BID Rosuvastatin 40MG Daily -Compliance Patient reports compliance w/ prescribed meds [Medication Education] -Education Importance of medication compliance, Medication purpose, Medication schedule, Medication side effects -Date Completed 03/31/23 -Initials CD -Education Summary He would like to be on less medication. States he becomes depressed with high doses of Beta Blockers [Medication Goals] -Goals Adherence to medication compliance -Comments No issues [Treatment Times] -Rehab Services with ECG Monitor -Time 1000 -End Time 1145 -Visit Duration 105
[2023-04-27 16:31] VITALS: BP 100/58; BMI 30.9
--- NOTE | 2023-04-27 16:45 | MHC.CR.ITR ---
Cardiac Rehab Reassessment/ITP Cardiac Rehab Reassessment/ITP Start: 03/31/23 07:35 Freq: Status: Active Protocol: Activity Type Activity Date Activity User E-sign Co-sign Detail Recorded Client Recorded Date Recorded By Document 04/27/23 16:31 GLORIA [id number] 04/27/23 16:44 GLORIA 04/27/23 16:31 Cardiac Rehab Reassessment/ITP [Exercise] -Ditch Cleaner Required No -Preferred Language Northern Irish -Progress Note Type 30-Day Note -Total Sessions Attended 8 -Comments Other history includes Colon CA, HLD, HTN, Obesity, PVC, SVT, L and R knee surgery, repair of Rotator Cuff. Pacemaker is DDDR at 60. Kartik consistently attends Cardiac Rehab without CV symptoms. He is gradually increasing his exercise intensity and time. He has stated a home program at the gym. [Functional Assessment] -ECG Summary Pacing-updates sent to Cardiology -Home-Based Rehab Pt approved for home-based exercise -Comments 04/27/23-Goes to the gym on non rehab days. He does 20 min. on the TM and 12 minutes on the bike. TM speed is 2.5MPH . -Fall Risk No [Exercise Plan] [Intervention] -Exercise Prescription NuStep, Recumbent Bike, Recumbent Elliptical, Rower,Treadmill ,UBE,Upright Bike,Weights -Duration Intensity 36 Sessions -Exercise Minutes/Day 50 -Exercise Days/Week 2 -Angina with Exercise Yes -Peak METs 3.3 [Home Exercise] -[employer] -Frequency 3 days -Intensity [id number] -Comments 04/27/23-Uses the TM and bike at the gym. [Exercise Education] -Exercise Education Exercise orientation, Exercise safety ,Home exercise, RPE,Self pulse checking,Signs and symptoms, Warmup/cooldown -Date Completed 03/31/23 -Initials CD -Education Summary Above-has been going to the gym 2-3 days a week. Cannot lift left arm totally over his head. Likes TM, Bike, leg press 100 pounds . Rides Supervisor met with patient. RPE, warm up/cool down, safety discussed. States understanding. Oriented to gym [Exercise Goals] -Exercise Most Days of the Week Yes -Exercise 30-45 mins/day Yes -Target HR Range +20 - +30 beats above resting -Target RPE range 11-13 -Increase METS next 30 days 0.5-1.0 METS Every two weeks -METs goal by Discharge 4 METS -Comments Would like to come to CR twice a week at 8:30AM 04/27/23- Consistently attends CR [Nutrition] [Hyperlipidemia] -Are lab results available No -Hyperlipidemia Yes [Diabetes] -Diabetes Yes -Diabetes Type 2 -Fasting Glucose 160 -HbA1C 6.80 [Weight Management] -Weight 94.9 kg -BMI 30.89 -Comments States he would like to reduce snacks, ice cream. Goal is 190 pounds. 04/27/23-Weight is 92.3 KG [Drug/Alchohol Use] -Drug/Alcohol Use Yes [Nutrition Plan] [Intervention] -Attended Nutrition Brochures [Nutrition Education] -Nutrition Education Diabetes and excercise, Hydration, Nutrition, Reading food labels,Signs and symptoms of Hypo/Hyper- glycemia -Date Completed 03/31/23 -Initials CD -Education Summary Ears tingle when BS high. BS has not been low, but can let low if he has not had two meals. Gets fatigued when BS low. He will bring Glucometer to rehab. [Nutrition Goals] -Goals BMI < 25, Fasting BG 80- 120 mg/dL,HDL > 40,LDL < 70, Total CHOL < 200 -Weight goal 190 -Comments Currently averaging 210 pounds [Psycho/Social] -Stage of Change Action -Occupation Retired -PHQ9 Score 3 -Interpretation of Score Low -Plan of Action/Follow-up NA -Patient Self-Reports Depression No -Comments States he does not feel depressed or anxious. Has been having issues with his home in [place]. [Psycho/Social Plan] [Intervention] -Attended No consult needed [Psycho/Social Education] -Psycho/Social Education Advanced directives, Coping techniques, Depression and CAD,Positive support system, Relaxation Techniques, Reviewed PHQ9 Score w/pt, Sexuality and CAD,Signs and symptoms of CAD ,Stress management -Date Completed 03/31/23 -Initials CD -Education Summary Likes working out, gardening, visiting with [employer] [Psycho/Social Goals] -Goals Not Applicable [Other Core Comp] [Hypertension] -Hypertention Yes -Resting BP: 100/58 -Medication Changes No -Comments Resting BP-92/ 62 pre, and 104 /60 post exercise [Tobacco Use] -Change in Use No [Heart Failure] -Heart Failure Yes -Dyspnea at Rest No -Dyspnea with Exercise Yes -Comments Systolic CHF [Other Core Comp Plan] [Intervention] -Attended Self Monitoring BP [Other Core Comp Education] -Other Core Comp Education HF Disease progression, Medication compliance,Risk factor modifications, RPD Scale/SOB management, Understanding hypertension -Date Completed 03/31/23 -Initials CD -Education Summary Checks BP at home intermittently, no issues with medication. Some medications make him tired. Expresses BP has been 120/80 [Other Core Comp Goals] -Goals Improve dyspnea ,Manage risk factors,Manage signs and symptoms of CHF ,Medication compliance, Resting BP < 130/80 -Comments SOB with aerobic activities, especially arm exercises. Noticed SOB, fatigue with painting [Medication Plan] [Intervention] -Medications Per [facility] -Compliance Patient reports compliance w/ prescribed meds [Medication Education] -Education Importance of medication compliance, Medication purpose, Medication schedule, Medication side effects -Date Completed 03/31/23 -Initials CD -Education Summary He would like to be on less medication. States he becomes depressed with high doses of Beta Blockers [Medication Goals] -Goals Adherence to medication compliance -Comments No issues
[2023-05-23 11:36] VITALS: BP 100/58; BMI 30.9
[2023-06-20 10:49] VITALS: BP 90/50; BMI 30.9
--- NOTE | 2023-06-20 11:14 | MHC.CR.ITR ---
[address] [phone] F: [phone] Please see additional notes from [facility] Cardiac Rehab Reassessment/ITP Cardiac Rehab Reassessment/ITP Start: 03/31/23 07:35 Freq: Status: Active Protocol: Activity Type Activity Date Activity User E-sign Co-sign Detail Recorded Client Recorded Date Recorded By Document 06/20/23 10:49 ADAMS [id number] 06/20/23 11:14 ADAMS 06/20/23 10:49 Cardiac Rehab Reassessment/ITP [Exercise] -Sexual Abuse Counsellor Required No -Preferred Language [place]ese -Progress Note Type 90-Day Note -Total Sessions Attended 22 -Comments Other history includes Colon CA, HLD, HTN, Obesity, PVC, SVT, L and R knee surgery, repair of Rotator Cuff. Pacemaker is DDDR at 60. Kartik consistently attends Cardiac Rehab without CV symptoms. He is gradually increasing his exercise intensity and time. He has stated a home program at the gym. 90 Day Reassessment: Progressing well and participating in CR regularly and has completed 22 session. Denies CV signs, but recently stating that he feels tiredness/ fatigue. BP's run a little soft, 90's systolic. Max met of 3.6. Paced. [Functional Assessment] -ECG Summary Pacing-updates sent to Cardiology -Home-Based Rehab Pt approved for home-based exercise -Comments 04/27/23-Goes to the gym on non rehab days. He does 20 min. on the TM and 12 minutes on the bike. TM speed is 2.5MPH . 05/23/23- Kartik continues to go to the gym on non rehab days as above. 90 Day: Continues with working out on his home and doing home maintenance. -Fall Risk No [Exercise Plan] [Intervention] -Exercise Prescription NuStep, Recumbent Bike, Recumbent Elliptical, Rower,Treadmill ,UBE,Upright Bike,Weights -Duration Intensity 36 Sessions -Exercise Minutes/Day 50 -Exercise Days/Week 2 -Angina with Exercise Yes -Peak METs 3.6 [Home Exercise] -[employer] -Frequency 3 days -Intensity [id number] -Comments 04/27/23-Uses the TM and bike at the gym. 05/23/23-As above. He expresses he may be doing too much. He will match what he is doing at the gym at Cardiac Rehab and continue to monitor. 06/20/2023: Lately stating he feels very tired. Continue to monitor BP here and if he continues with lower BP's may way to communicate this to Rn Lab. [Exercise Education] -Exercise Education Exercise orientation, Exercise safety ,Home exercise, RPE,Self pulse checking,Signs and symptoms, Warmup/cooldown -Date Completed 03/31/23 -Initials CD -Education Summary Above-has been going to the gym 2-3 days a week. Cannot lift left arm totally over his head. Likes TM, Bike, leg press 100 pounds . Dining Car Hop met with patient. RPE, warm up/cool down, safety discussed. States understanding. Oriented to gym . 05/23/23-THR, exercise guidelines were reinforced. He had one session that he expressed increased SOB with same workloads. was notified. Kartik reported Rn Lab wanted to change medications but he refused. He has since reported fatigue and has been adjusting workloads. No CP, dyspnea reported. No SOB noted. VS, telemetry stable(mainly paced). Strips reviewed by Cardiology. Questions on HR , progress discussed. 06/20/2023: Will follow up with patient about his feeling of fatigue/ tiredness and educate importance of communicating with jet man. He is sometimes reluctant to see . [Exercise Goals] -Exercise Most Days of the Week Yes -Exercise 30-45 mins/day Yes -Target HR Range +20 - +30 beats above resting -Target RPE range 11-13 -Increase METS next 30 days 0.5-1.0 METS Every two weeks -METs goal by Discharge 4 METS -Comments Would like to come to CR twice a week at 8:30AM 04/27/23- Consistently attends CR 05/23/23-Within Target HR. 06/20/2023: Doing well to ex within limits. [Nutrition] [Hyperlipidemia] -Are lab results available No -Hyperlipidemia Yes -Comments 05/23/23-Per PCP note Lipids to be redrawn. Lab results not available at this time. [Diabetes] -Diabetes Yes -Diabetes Type 2 -Fasting Glucose 160 -HbA1C 6.80 -Comments 05/23/24-HbA1C 7.4 04/27/23. PCP note indicates DM stable. 06/20/2023: No concerns at this time. [Weight Management] -Weight 92.3 kg -BMI 30.89 -Comments States he would like to reduce snacks, ice cream. Goal is 190 pounds. 04/27/23-Weight is 92.3 KG 05/23/23-Last sessions weight was 94.9 06/20/2023: weight is down. [Drug/Alchohol Use] -Drug/Alcohol Use Yes [Nutrition Plan] [Intervention] -Attended Nutrition Brochures [Nutrition Education] -Nutrition Education Diabetes and excercise, Hydration, Nutrition, Reading food labels,Signs and symptoms of Hypo/Hyper- glycemia -Date Completed 03/31/23 -Initials CD -Education Summary Ears tingle when BS high. BS has not been low, but can be low if he has not had two meals. Gets fatigued when BS low. He will bring Glucometer to rehab. 05/23/24-No S/S of hyper/ hypoglycemia. [Nutrition Goals] -Goals BMI < 25, Fasting BG 80- 120 mg/dL,HDL > 40,LDL < 70, Total CHOL < 200 -Weight goal 190 -Comments Currently averaging 210 pounds [Psycho/Social] -Stage of Change Action -Occupation Retired -PHQ9 Score 3 -Interpretation of Score Low -Plan of Action/Follow-up NA -Patient Self-Reports Depression No -Comments States he does not feel depressed or anxious. Has been having issues with his home in [place]. [Psycho/Social Plan] [Intervention] -Attended No consult needed [Psycho/Social Education] -Psycho/Social Education Advanced directives, Coping techniques, Depression and CAD,Positive support system, Relaxation Techniques, Reviewed PHQ9 Score w/pt, Sexuality and CAD,Signs and symptoms of CAD ,Stress management -Date Completed 03/31/23 -Initials CD -Education Summary Likes working out, gardening, visiting with grandkids [Psycho/Social Goals] -Goals Not Applicable -Comments 06/20/2023 Pt tends to be a fairly serious patient, with dry sense of humor. He denies depression [Other Core Comp] [Hypertension] -Hypertention Yes -Resting BP: 90/50 -Medication Changes No -Comments Resting BP-92/ 62 pre, and 104 /60 post exercise 05/23/23-BP at rest 98/60, 120 /72 with exercise. PCP note 04/27 indicates HTN stable 06/20/2023: BP' s run low even with ex. [Tobacco Use] -Change in Use No [Heart Failure] -Heart Failure Yes -Dyspnea at Rest No -Dyspnea with Exercise Yes -Comments Systolic CHF 05/23/23-One episode of SOB at cardiac rehab. No further episodes. Fatigue monitored. No other s/s of CHF. Rn Lab aware of episode. Patient had expressed during an exercise session that he felt more SOB at the same level of exercise. SOB was noted; he was SOB while talking. At the following session he stated he did not feel he was SOB. 06/20/2023: Denies SOB but he does have feelings of tiredness recently. [Other Core Comp Plan] [Intervention] -Attended Self Monitoring BP [Other Core Comp Education] -Other Core Comp Education HF Disease progression, Medication compliance,Risk factor modifications, RPD Scale/SOB management, Understanding hypertension -Date Completed 03/31/23 -Initials CD -Education Summary Checks BP at home intermittently, no issues with medication. Some medications make him tired. Expresses BP has been 120/80 05/23/23-VS stable at rest and with exercise. No symptoms with BP's in 90's. 06/20/2023: Education about Depression and CAD, Relaxation and diet provided [Other Core Comp Goals] -Goals Improve dyspnea ,Manage risk factors,Manage signs and symptoms of CHF ,Medication compliance, Resting BP < 130/80 -Comments SOB with aerobic activities, especially arm exercises. Noticed SOB, fatigue with painting 05/23/23-No issues with medication. He does not wish to start new medications as recommended by Rn Lab( per patient) 06/20/2023 Understands BP goals, states he is compliant with medications. [Medication Plan] [Intervention] -Medications amlodipine 2.5 mg daily ASA 81 MG DAILY BEDADRYL 25 MG PRN EZETIMBRE 10 MG DAILY FINASTERIDE 5 MG DAILY FLONASE DAILY METFORMIN 500 MG DAILY NITRO 0.4 MG Q5 MIN PRN RANOLASINE 500MG BID ROSUVASTATIN 40 MG DAILY ISOSORBIDE ER 60 MG -Compliance Patient reports compliance w/ prescribed meds [Medication Education] -Education Importance of medication compliance, Medication purpose, Medication schedule, Medication side effects -Date Completed 03/31/23 -Initials CD -Education Summary He would like to be on less medication. States he becomes depressed with high doses of Beta Blockers. 05/23/23-No issues with medications. Finasteride 5MG started. [Medication Goals] -Goals Adherence to medication compliance -Comments No issues 06/20/2023 MED COMPLIANCE REPORTED.
[2023-07-20 15:41] VITALS: BP 90/50; BMI 30.9
--- NOTE | 2023-07-20 15:54 | MHC.CR.ITR ---
[address] [phone] F: [phone] Please see additional notes from [facility] Cardiac Rehab Reassessment/ITP Cardiac Rehab Reassessment/ITP Start: 03/31/23 07:35 Freq: Status: Active Protocol: Activity Type Activity Date Activity User E-sign Co-sign Detail Recorded Client Recorded Date Recorded By Document 07/20/23 15:41 GLORIA [id number] 07/20/23 15:54 GLORIA 07/20/23 15:41 Cardiac Rehab Reassessment/ITP [Exercise] -Textiles Sales Representative Required No -Preferred Language Italian -Progress Note Type 120-Day Note -Total Sessions Attended 30 -Comments Other history includes Colon CA, HLD, HTN, Obesity, PVC, SVT, L and R knee surgery, repair of Rotator Cuff. Pacemaker is DDDR at 60. Kartik consistently attends Cardiac Rehab without CV symptoms. He is gradually increasing his exercise intensity and time. He has stated a home program at the gym. 90 Day Reassessment: Progressing well and participating in CR regularly and has completed 22 session. Denies CV signs, but recently stating that he feels tiredness/ fatigue. BP's run a little soft, 90's systolic. Max met of 3.6. Paced. 120 Day: No significant change from above. Kartik expresses concern over lower BP's;he remains asymptomatic. He has discussed fatigue, SOB with increased exercise with Local Hazmat Driver but does not wish to add medications. He is unsure if he will seek a second opinion in [place]. [Functional Assessment] -ECG Summary Pacing-updates sent to Cardiology -Home-Based Rehab Pt approved for home-based exercise -Comments 04/27/23-Goes to the gym on non rehab days. He does 20 min. on the TM and 12 minutes on the bike. TM speed is 2.5MPH . 05/23/23- Kartik continues to go to the gym on non rehab days as above. 90 Day: Continues with working out in his home and doing home maintenance. 120 Day: He continues activities as above -Fall Risk No [Exercise Plan] [Intervention] -Exercise Prescription NuStep, Recumbent Bike, Recumbent Elliptical, Rower,Treadmill ,UBE,Upright Bike,Weights -Duration Intensity 36 Sessions -Exercise Minutes/Day 50 -Exercise Days/Week 2 -Angina with Exercise Yes -Peak METs 3.6 [Home Exercise] -[employer] -Frequency 3 days -Intensity [id number] -Comments 04/27/23-Uses the TM and bike at the gym. 05/23/23-As above. He expresses he may be doing too much. He will match what he is doing at the gym at Cardiac Rehab and continue to monitor. 06/20/2023: Lately stating he feels very tired. Continue to monitor BP here and if he continues with lower BP's may way to communicate this to Local Hazmat Driver. 07/20/23-Briana has discussed options with Local Hazmat Driver but does not wish to add medication. Question if he will seek a second opinion in [place]. [Exercise Education] -Exercise Education Exercise orientation, Exercise safety ,Home exercise, RPE,Self pulse checking,Signs and symptoms, Warmup/cooldown -Date Completed 03/31/23 -Initials CD -Education Summary Above-has been going to the gym 2-3 days a week. Cannot lift left arm totally over his head. Likes TM, Bike, leg press 100 pounds . Head Start Director met with patient. RPE, warm up/cool down, safety discussed. States understanding. Oriented to gym . 05/23/23-THR, exercise guidelines were reinforced. He had one session that he expressed increased SOB with same workloads. MD was notified. Kartik reported Local Hazmat Driver wanted to change medications but he refused. He has since reported fatigue and has been adjusting workloads. No CP, dyspnea reported. No SOB noted. VS, telemetry stable(mainly paced). Strips reviewed by Cardiology. Questions on HR , progress discussed. 06/20/2023: Will follow up with patient about his feeling of fatigue/ tiredness and educate importance of communicating with parent trainer. He is sometimes reluctant to see 07/20/23-As above. He has been encouraged to continue follow up with MD, communicate concerns. [Exercise Goals] -Exercise Most Days of the Week Yes -Exercise 30-45 mins/day Yes -Target HR Range +20 - +30 beats above resting -Target RPE range 11-13 -Increase METS next 30 days 0.5-1.0 METS Every two weeks -METs goal by Discharge 4 METS -Comments Would like to come to CR twice a week at 8:30AM 04/27/23- Consistently attends CR 05/23/23-Within Target HR. 06/20/2023: Doing well to ex within limits. 07/20/23- Consistently attends classes . He has recently increased intensity [Nutrition] [Hyperlipidemia] -Are lab results available No -Hyperlipidemia Yes -Comments 05/23/23-Per PCP note Lipids to be redrawn. Lab results not available at this time. 07/20/23-No updates [Diabetes] -Diabetes Yes -Diabetes Type 2 -Fasting Glucose 160 -HbA1C 6.80 -Comments 05/23/24-HbA1C 7.4 04/27/23. PCP note indicates DM stable. 06/20/2023: No concerns at this time. [Weight Management] -Weight 92.3 kg -BMI 30.89 -Comments States he would like to reduce snacks, ice cream. Goal is 190 pounds. 04/27/23-Weight is 92.3 KG 05/23/23-Last sessions weight was 94.9 06/20/2023: weight is down. 07/20/23-Last weight 92.3KG [Drug/Alchohol Use] -Drug/Alcohol Use Yes [Nutrition Plan] [Intervention] -Attended Nutrition Brochures [Nutrition Education] -Nutrition Education Diabetes and excercise, Hydration, Nutrition, Reading food labels,Signs and symptoms of Hypo/Hyper- glycemia -Date Completed 03/31/23 -Initials CD -Education Summary Ears tingle when BS high. BS has not been low, but can be low if he has not had two meals. Gets fatigued when BS low. He will bring Glucometer to rehab. 05/23/24-No S/S of hyper/ hypoglycemia. 07/20/23-WIll request for patient to bring Glucometer. [Nutrition Goals] -Goals BMI < 25, Fasting BG 80- 120 mg/dL,HDL > 40,LDL < 70, Total CHOL < 200 -Weight goal 190 -Comments Currently averaging 210 pounds [Psycho/Social] -Stage of Change Action -Occupation Retired -PHQ9 Score 3 -Interpretation of Score Low -Plan of Action/Follow-up NA -Patient Self-Reports Depression No -Comments States he does not feel depressed or anxious. Has been having issues with his home in [place]. 07/20/23-No change [Psycho/Social Plan] [Intervention] -Attended No consult needed [Psycho/Social Education] -Psycho/Social Education Advanced directives, Coping techniques, Depression and CAD,Positive support system, Relaxation Techniques, Reviewed PHQ9 Score w/pt, Sexuality and CAD,Signs and symptoms of CAD ,Stress management -Date Completed 03/31/23 -Initials CD -Education Summary Likes working out, gardening, visiting with grandkids [Psycho/Social Goals] -Goals Not Applicable -Comments 06/20/2023 Pt tends to be a fairly serious patient, with dry sense of humor. He denies depression 07/20/23-No change [Other Core Comp] [Hypertension] -Hypertention Yes -Resting BP: 90/50 -Medication Changes No -Comments Resting BP-92/ 62 pre, and 104 /60 post exercise 05/23/23-BP at rest 98/60, 120 /72 with exercise. PCP note 04/27 indicates HTN stable 06/20/2023: BP' s run low even with ex. 07/20/23-See note above. Continues to be encouraged to discuss with MD if he has further questions/ concerns [Tobacco Use] -Change in Use No [Heart Failure] -Heart Failure Yes -Dyspnea at Rest No -Dyspnea with Exercise Yes -Comments Systolic CHF 05/23/23-One episode of SOB at cardiac rehab. No further episodes. Fatigue monitored. No other s/s of CHF. Local Hazmat Driver aware of episode. Patient had expressed during an exercise session that he felt more SOB at the same level of exercise. SOB was noted; he was SOB while talking. At the following session he stated he did not feel he was SOB. 06/20/2023: Denies SOB but he does have feelings of tiredness recently. [Other Core Comp Plan] [Intervention] -Attended Self Monitoring BP [Other Core Comp Education] -Other Core Comp Education HF Disease progression, Medication compliance,Risk factor modifications, RPD Scale/SOB management, Understanding hypertension -Date Completed 03/31/23 -Initials CD -Education Summary Checks BP at home intermittently, no issues with medication. Some medications make him tired. Expresses BP has been 120/80 05/23/23-VS stable at rest and with exercise. No symptoms with BP's in 90's. 06/20/2023: Education about Depression and CAD, Relaxation and diet provided 07/20/23- Participates in rehab educational classes. Discussed exercise progress, plans with staff. States understanding of plans. [Other Core Comp Goals] -Goals Improve dyspnea ,Manage risk factors,Manage signs and symptoms of CHF ,Medication compliance, Resting BP < 130/80 -Comments SOB with aerobic activities, especially arm exercises. Noticed SOB, fatigue with painting 05/23/23-No issues with medication. He does not wish to start new medications as recommended by Local Hazmat Driver( per patient) 06/20/2023 Understands BP goals, states he is compliant with medications. 07/20/23-As above. BP runs low;continues to be asymptomatic but does c/o fatigue. Encouraged to discuss with MD . [Medication Plan] [Intervention] -Medications amlodipine 2.5 mg daily ASA 81 MG DAILY BEDADRYL 25 MG PRN EZETIMBRE 10 MG DAILY FINASTERIDE 5 MG DAILY FLONASE DAILY METFORMIN 500 MG DAILY NITRO 0.4 MG Q5 MIN PRN RANOLASINE 500MG BID ROSUVASTATIN 40 MG DAILY ISOSORBIDE ER 60 MG -Compliance Patient reports compliance w/ prescribed meds [Medication Education] -Education Importance of medication compliance, Medication purpose, Medication schedule, Medication side effects -Date Completed 03/31/23 -Initials CD -Education Summary He would like to be on less medication. States he becomes depressed with high doses of Beta Blockers. 05/23/23-No issues with medications. Finasteride 5MG started. 07/20/23-No change [Medication Goals] -Goals Adherence to medication compliance -Comments No issues 06/20/2023 MED COMPLIANCE REPORTED. 07/20/23- Complaint with medications. He does not wish to change medications as recommended by Local Hazmat Driver.
== END 2023-09-02 07:41 | disposition home or self-care (01) ==
LOC: HO.CR 08:30
PROVIDERS: PCP Internal Medicine; Visit Provider Internal Medicine Cardiovascular Disease
DX: I25.10 Atherosclerotic heart disease of native coronary artery without angina pectoris (principal)
CPT/HCPCS: 93798

== ENCOUNTER → 2023-10-04 23:59 | Outpatient (BNV) | payer MEDICARE, SELFPAY ==
[2023-03-31 07:35] VITALS: BP 100/58; BP 126/68
[2023-07-20 15:41] VITALS: BP 90/50; BMI 30.9
--- NOTE | 2023-10-04 13:28 | A.OFFVIS_ITS ---
Intake Intake Visit Reasons: Remote Device Check- [facility] Allergies BERNABE Inhibitors [BERNABE INHIBITORS] Allergy (Intermediate, Verified 07/27/23 11:43) DEPRESSION latex [LATEX] Allergy (Intermediate, Verified 07/27/23 11:43) RASH terazosin Allergy (Intermediate, Verified 07/27/23 11:43) hives, swollen lips and hoarseness pravastatin [Pravachol] Allergy (Unknown, Verified 07/27/23 11:43) unknown bee pollen [bee stings] Adverse Reaction (Severe, Verified 07/27/23 11:43) Anaphylaxis Beta-Blockers (Beta-Adrenergic Bloc [BETA-BLOCKERS (BETA-ADRENERGIC BLOC] Adverse Reaction (Intermediate, Verified 07/27/23 11:43) DECREASED HR, DEPRESSION amoxicillin Allergy (Intermediate, Uncoded 07/27/23 11:43) hives, swollen lips, and hoarseness cephlex: levofloxacin Allergy (Intermediate, Uncoded 07/27/23 11:43) hives, swollen lips, and hoarseness clindomycin Allergy (Intermediate, Uncoded 07/27/23 11:43) hives, swollen lips, and hoarseness [facility] Medical History Pacemaker (~2021) Bradycardia (~2021) History of COVID-19 BPH (benign prostatic hyperplasia) Hypertension Obesity Hyperlipidemia associated with type 2 diabetes mellitus Tubular adenoma of colon COVID-19 vaccine administered Diabetes mellitus History of colon cancer (~2010) Cardiomyopathy PVC (premature ventricular contraction) SVT (supraventricular tachycardia) CAD (coronary artery disease) Surgical History History of pacemaker (~2021) History of coronary artery bypass graft x 3 (~1998) History of hernia repair (~2012) History of colonoscopy History of left knee surgery (~2003) History of right knee surgery History of colostomy (~2010) History of partial colectomy (~2011) History of tonsillectomy History of repair of rotator cuff History of cataract surgery (~2013) History of cardiac cath History of colostomy reversal (~2011) Family History Father Cancer, colon Mother Cancer of breast Cancer of lung Sister Cancer Social History Household Members: Spouse Housing: House Are you a primary wound care nurse to a significant other at home: No Do you presently have visiting nurse or other home services: No Alcohol intake: current Alcohol intake frequency: 0-2 drinks per day Comment: previously medicated with po tylenol Patient Tobacco Use Status: Never used Tobacco e-Cigarette/Vaping Use: Never Used Second Hand Smoke Exposure: No service: No Current occupational status: retired Cognitive needs: No Hearing needs: No Vision needs: Yes (glasses) Office Procedures Cardiac Device Check Cardiac Device Check Details: Remote pacemaker report generated 10/04/2023. Pacemaker function is adequate. [id number] Cardiac Device Interrogation, pacemaker Procedure code (CPT) selection complete Assessment & Plan Assessment & Plan (1) Pacemaker: Onset Date: ~2021 Comment: ([facility] DCPP - placed 06/18/22) Code(s): Z95.0 - Presence of cardiac pacemaker Plan: See above Coding Level of Care Code Procedure Only Diagnoses Pacemaker Z95.0 CPT Codes Cardiac Device Check - Cardiac Device 12: [id number] Cardiac Device Interrogation, pacemaker ([id number])
== END ==
PROVIDERS: PCP Internal Medicine; Visit Provider Internal Medicine Cardiovascular Disease
DX: R00.1 Bradycardia, unspecified (principal); Z95.0 Presence of cardiac pacemaker
CPT/HCPCS: 93294

== ENCOUNTER 2023-10-06 09:28 | Outpatient (AMB) | payer MEDICARE, SELFPAY ==
[2023-03-31 07:35] VITALS: BP 100/58; BP 126/68; BMI 30.9
[2023-07-20 15:41] VITALS: BP 90/50; BMI 30.9
[2023-10-06 09:29] VITALS: BP 120/68; PULSE 70; BMI 33.2
--- NOTE | 2023-10-06 09:29 | A.OFFVIS_ITS ---
Intake Vital Signs 10/06/23 09:29 Height 5 ft 9 in Weight 224 lb 13.944 oz BMI 33.2 BP 120/68 Blood Pressure Location Lt brachial Position Sitting Pulse 70 Intake Visit Reasons: 6 mth w/ pacer ck and ekg Intake Note: 6 month w/ pace and ekg Allergies BERNABE Inhibitors [BERNABE INHIBITORS] Allergy (Intermediate, Verified 10/06/23 09:41) DEPRESSION latex [LATEX] Allergy (Intermediate, Verified 10/06/23 09:41) RASH terazosin Allergy (Intermediate, Verified 10/06/23 09:41) hives, swollen lips and hoarseness pravastatin [Pravachol] Allergy (Unknown, Verified 10/06/23 09:41) unknown bee pollen [bee stings] Adverse Reaction (Severe, Verified 10/06/23 09:41) Anaphylaxis Beta-Blockers (Beta-Adrenergic Bloc [BETA-BLOCKERS (BETA-ADRENERGIC BLOC] Adverse Reaction (Intermediate, Verified 10/06/23 09:41) DECREASED HR, DEPRESSION amoxicillin Allergy (Intermediate, Uncoded 07/27/23 11:43) hives, swollen lips, and hoarseness cephlex: levofloxacin Allergy (Intermediate, Uncoded 07/27/23 11:43) hives, swollen lips, and hoarseness clindomycin Allergy (Intermediate, Uncoded 07/27/23 11:43) hives, swollen lips, and hoarseness Medication List - Last Reconciled 10/06/23 by Marquise Espinoza MD aspirin (Adult Low Dose Aspirin) 81 mg PO DAILY azithromycin take 500 mg today (day 1), then 250 mg for 4 days (days 2-5) PO bisoprolol fumarate 5 mg PO DAILY 30 days blood sugar diagnostic ([place] Verio test strips) 1 Strip Once a Day blood-glucose meter ([place] Verio Meter) to check blood sugars once a day diphenhydramine HCl (Benadryl Allergy) 25 mg PO TID PRN ezetimibe 10 mg PO DAILY finasteride 5 mg PO DAILY fluticasone propionate 50 mcg/actuation (Flonase Allergy Relief) 1 spray intranasal DAILY isosorbide mononitrate ER 60 mg PO DAILY lancets ([place] Delica Lancets) to check blood sugars once a day metformin ER 500 mg PO BID ranolazine ER 500 mg PO BID rosuvastatin (Crestor) 40 mg PO DAILY HPI HPI Comments History of Present Illness Details Kartik comes for follow-up. He said he continues to have significant issue with fatigue. After he is done with his cardiac rehab he has to take a nap. He also has notice that his blood pressure is low sometimes into the 80s with cardiac rehab. He is concerned about his medications. However he says his exercise capacity is improved since doing cardiac rehab and he was only able to go up a flight of stairs x1 now he can go up the stairs 4 or 5 times. He denies any orthopnea, PND. Denies any syncopal episodes. Denies any prolonged palpitations irregular heartbeat. Denies any chest pain. No leg edema. No recent lipid panel. [facility] Medical History Pacemaker (~2021) Bradycardia (~2021) History of COVID-19 BPH (benign prostatic hyperplasia) Hypertension Obesity Hyperlipidemia associated with type 2 diabetes mellitus Tubular adenoma of colon COVID-19 vaccine administered Diabetes mellitus History of colon cancer (~2010) Cardiomyopathy PVC (premature ventricular contraction) SVT (supraventricular tachycardia) CAD (coronary artery disease) Surgical History History of pacemaker (~2021) History of coronary artery bypass graft x 3 (~1998) History of hernia repair (~2012) History of colonoscopy History of left knee surgery (~2003) History of right knee surgery History of colostomy (~2010) History of partial colectomy (~2011) History of tonsillectomy History of repair of rotator cuff History of cataract surgery (~2013) History of cardiac cath History of colostomy reversal (~2011) Family History Father Cancer, colon Mother Cancer of breast Cancer of lung Sister Cancer Social History Household Members: Spouse Housing: House Are you a primary personal caregiver to a significant other at home: No Do you presently have visiting nurse or other home services: No Alcohol intake: current Alcohol intake frequency: 0-2 drinks per day Comment: previously medicated with po tylenol Patient Tobacco Use Status: Never used Tobacco e-Cigarette/Vaping Use: Never Used Second Hand Smoke Exposure: No service: No Current occupational status: retired Cognitive needs: No Hearing needs: No Vision needs: Yes (glasses) Review of Systems Const Denies chills, Denies fatigue, Denies fever(s), Denies frequent falls, Denies weakness, Denies weight gain and Denies weight loss ENT Denies dizziness Card Denies chest pain, Denies leg edema, Denies lightheadedness, Denies palpitations, Denies dyspnea, Denies dyspnea on exertion, Denies orthopnea and Denies other (loss of consciousness) Resp Denies cough, Denies dyspnea and Denies dyspnea on exertion GI Denies hematochezia and Denies change in stool character Musc Denies abnormal gait, Denies muscle weakness, Denies numbness, Denies radiating pain into limb and Denies tingling Neuro Denies abnormal gait, Denies dizziness, Denies frequent falls, Denies numbness, Denies tingling and Denies weakness Endo Denies fatigue and Denies palpitations Physical Exam Vital Signs: Last Vital Signs Pulse 70 10/06/23 09:29 BP 120/68 10/06/23 09:29 BMI result Body Mass Index 33.2 Const General: cooperative, comfortable, no acute distress, alert, awake and well groomed Nutritional Appearance: obese Orientation/consciousness: patient oriented x3 HEENT Head: Yes normal to inspection Eyes Sclerae: sclerae normal Neck Neck: Yes trachea midline, Yes supple and Yes no JVD Carotids: normal carotid upstroke Chest Chest palpation & inspection: normal inspection of the chest Resp Effort & Inspection: normal respiratory effort Auscultation: clear to auscultation bilaterally, no crackles, no rales, no rhonchi and no wheezes Cardio Jugular venous distension: no JVD Rate: regular rate Rhythm: regular rhythm Heart sounds: S1 normal heart sound present, S2 normal heart sound present, no gallops, no murmurs and no rubs Peripheral pulses: Peripheral pulses 2+ throughout GI Inspection: Yes normal to inspection Skin General skin exam: no rashes or lesions noted Neuro General: patient oriented x3 Extrem General: Yes normal to inspection, No no pedal edema and No calf tenderness Office Procedures Cardiac Device Check Cardiac Device Check Details: Dual-chamber [employer] pacemaker in place. Programmed in DDDR at 60 beats per minute with aggressive rate response therapy. Atrial ventricular capture thresholds excellent. Atrial ventricular sensing is excellent. Pacing lead impedance is normal. Battery life is excellent at 10.9 years no arrhythmias detected [id number] Cardiac Device Check, pacemaker dual lead Procedure code (CPT) selection complete EKG Details: EKG shows normal sinus rhythm, poor baseline with inferior Q-waves with nonspecific ST T wave changes [id number], Complete Assessment & Plan Assessment & Plan (1) CAD (coronary artery disease): Comment: (Hx CABG x 3 - FIELDS to LAD, radial graft to Ramus, free GOYO to RCA - 1998) Code(s): I25.10 - Atherosclerotic heart disease of [place] coronary artery without angina pectoris Plan: Patient with prior CAD as well as coronary artery bypass grafting many years ago with patent grafts and progressive [place] coronary disease not revascularize able. We discussed about continued medical therapy. He is having low blood pressure fatigue. Will taper isosorbide to 30 mg daily. If he has recurrent symptoms suggestive angina which is shortness of breath for him will bump up his Ranexa therapy. Continue bisoprolol therapy which is helping with his SVT as well. Continue aggressive risk factor modification. Continue lifelong aspirin therapy. Continue high-intensity statin therapy. Advised lipid panel near future. Management of diabetes as per you with goal hemoglobin A1c less than 7%. Recommend to continue to pursue phase 2 cardiac rehabilitation (2) SVT (supraventricular tachycardia): Code(s): I47.1 - Supraventricular tachycardia Plan: SVT which has remained suppressed on therapy with bisoprolol. Has helped him significantly. Continue the same. Avoidance of stimulants was discussed. No other interventions required at this point in time. (3) Pacemaker: Onset Date: ~2021 Comment: ([employer] DCPP - placed 06/18/22) Code(s): Z95.0 - Presence of cardiac pacemaker Plan: Cardiac pacemaker in-situ which is working well. Will continue follow remotely. Follow up in the clinic in 6 months time. (4) Fatigue: Code(s): R53.83 - Other fatigue Plan: Symptoms of fatigue which unclear. He denies any symptoms suggestive of sleep apnea. Will check TSH and testosterone levels. Could be related to low blood pressure. Will taper isosorbide therapy. Advised to maintain adequate hydration. Will follow up in the clinic in 6 months time, sooner p.r.n.. Thank you for allowing me to partake in his care Orders: Orders Testosterone, Free/Total Today I25.10 - Atherosclerotic heart disease of [place] coronary artery without angina pectoris Lipid Panel Today I25.10 - Atherosclerotic heart disease of [place] coronary artery without angina pectoris TSH reflex Free T4 Today I25.10 - Atherosclerotic heart disease of [place] coronary artery without angina pectoris Medications: Changed From isosorbide mononitrate ER 60 mg PO DAILY 90 tabs 3RF I25.10 - Atherosclerotic heart disease of [place] coronary artery without angina pectoris To isosorbide mononitrate ER 30 mg (1/2 x 60 mg) PO DAILY 90 tabs 3RF I25.10 - Atherosclerotic heart disease of [place] coronary artery without angina pectoris Discontinued ezetimibe Discontinued Reason: Patient no longer taking 10 mg PO DAILY 90 tabs 8RF Coding Level of Care Code Est Pt Level 4 (24521) Diagnoses CAD (coronary artery disease) I25.10 SVT (supraventricular tachycardia) I47.1 Pacemaker Z95.0 Fatigue R53.83 CPT Codes Cardiac Device Check - Cardiac Device 2: [id number] Cardiac Device Check, pacemaker dual lead ([id number]) EKG - CPT: 22254-[id number], Complete ([id number])
== END 2023-10-06 09:57 | disposition home or self-care (01) ==
PROVIDERS: PCP Internal Medicine; Visit Provider Internal Medicine Cardiovascular Disease
DX: I25.10 Atherosclerotic heart disease of native coronary artery without angina pectoris (principal); I47.10 Supraventricular tachycardia, unspecified; Z95.0 Presence of cardiac pacemaker; R53.83 Other fatigue
CPT/HCPCS: 93280; 99214

== ENCOUNTER → 2023-10-06 09:28 | Outpatient (BNVA) | payer MEDICARE, SELFPAY ==
[2023-03-31 07:35] VITALS: BP 100/58; BP 126/68
[2023-07-20 15:41] VITALS: BP 90/50; BMI 30.9
== END ==
PROVIDERS: PCP Internal Medicine; Visit Provider Internal Medicine Cardiovascular Disease
DX: Z45.018 Encounter for adjustment and management of other part of cardiac pacemaker (principal); I25.10 Atherosclerotic heart disease of native coronary artery without angina pectoris; I47.10 Supraventricular tachycardia, unspecified; R53.83 Other fatigue
CPT/HCPCS: 93005; 93280; 99212

== ENCOUNTER 2023-11-02 11:15 | Outpatient (AMB) | payer MEDICARE, SELFPAY ==
[2023-03-31 07:35] VITALS: BP 100/58; BP 126/68
[2023-07-20 15:41] VITALS: BP 90/50; BMI 30.9
[2023-11-02 11:19] VITALS: BP 120/60; PULSE 60; O2SAT 98; BMI 31.2
--- NOTE | 2023-11-02 11:19 | MHC.PC.OV ---
Vital Signs 11/02/23 11:19 Height 5 ft 9 in Weight 211 lb BMI 31.2 BP 120/60 Blood Pressure Location Lt brachial Position Sitting Pulse 60 Pulse Source Pulse Oximeter Pulse Oximetry (%) 98 Oxygen Delivery Method Room Air Intake Visit Reasons: 3 month f/u Alterations Supervisor Required: No Mixing Pan Tender: Not Required per policy Accompanied by: Self / Same As Patient Allergies BERNABE Inhibitors [BERNABE INHIBITORS] Allergy (Intermediate, Verified 11/02/23 11:19) DEPRESSION latex [LATEX] Allergy (Intermediate, Verified 11/02/23 11:19) RASH terazosin Allergy (Intermediate, Verified 11/02/23 11:19) hives, swollen lips and hoarseness pravastatin [Pravachol] Allergy (Unknown, Verified 11/02/23 11:19) unknown bee pollen [bee stings] Adverse Reaction (Severe, Verified 11/02/23 11:19) Anaphylaxis Beta-Blockers (Beta-Adrenergic Bloc [BETA-BLOCKERS (BETA-ADRENERGIC BLOC] Adverse Reaction (Intermediate, Verified 11/02/23 11:19) DECREASED HR, DEPRESSION amoxicillin Allergy (Intermediate, Uncoded 11/02/23 11:19) hives, swollen lips, and hoarseness cephlex: levofloxacin Allergy (Intermediate, Uncoded 11/02/23 11:19) hives, swollen lips, and hoarseness clindomycin Allergy (Intermediate, Uncoded 11/02/23 11:19) hives, swollen lips, and hoarseness Medication List - Last Reconciled 11/02/23 by Mckinley Choi MD aspirin (Adult Low Dose Aspirin) 81 mg PO DAILY bisoprolol fumarate 2.5 mg PO DAILY blood sugar diagnostic ([place] Verio test strips) 1 Strip Once a Day blood-glucose meter ([place] Verio Meter) to check blood sugars once a day diphenhydramine HCl (Benadryl Allergy) 25 mg PO TID PRN finasteride 5 mg PO DAILY fluticasone propionate 50 mcg/actuation (Flonase Allergy Relief) 1 spray intranasal DAILY isosorbide mononitrate ER 30 mg (1/2 x 60 mg) PO DAILY lancets ([employer] Delica Lancets) to check blood sugars once a day metformin ER 500 mg PO BID ranolazine ER 500 mg PO BID rosuvastatin (Crestor) 40 mg PO DAILY Tobacco use date assessed: 11/02/23 Fall risk assessment: No Falls in past year Last assessed Fall Risk: 11/02/23 Dental Screening Dental Screen Date: 11/02/23 Did you have a dental visit in the last 12 months?: Yes Did you have a dental problem in the last 6 months where you did not have access to dental care?: No Was dental information given to patient?: Patient has dentist HPI 3 month f/u HPI Details DM BPH and hyperlip on rx; dietary indiscretion; A1C 7.5 PFSH Medical History Pacemaker (~2021) Bradycardia (~2021) History of COVID-19 BPH (benign prostatic hyperplasia) Hypertension Obesity Hyperlipidemia associated with type 2 diabetes mellitus Tubular adenoma of colon COVID-19 vaccine administered Diabetes mellitus History of colon cancer (~2010) Cardiomyopathy PVC (premature ventricular contraction) SVT (supraventricular tachycardia) CAD (coronary artery disease) Surgical History History of pacemaker (~2021) History of coronary artery bypass graft x 3 (~1998) History of hernia repair (~2012) History of colonoscopy History of left knee surgery (~2003) History of right knee surgery History of colostomy (~2010) History of partial colectomy (~2011) History of tonsillectomy History of repair of rotator cuff History of cataract surgery (~2013) History of cardiac cath History of colostomy reversal (~2011) Family History Father Cancer, colon Mother Cancer of breast Cancer of lung Sister Cancer Social History Household Members: Spouse Housing: House Are you a primary transitional care manager to a significant other at home: No Do you presently have visiting nurse or other home services: No Alcohol intake: current Alcohol intake frequency: 0-2 drinks per day Comment: previously medicated with po tylenol Patient Tobacco Use Status: Never used Tobacco e-Cigarette/Vaping Use: Never Used Second Hand Smoke Exposure: No service: No Current occupational status: retired Cognitive needs: No Hearing needs: No Vision needs: Yes (glasses) Questionnaire PHQ-9 Over the last 2 weeks, how often have you been bothered by any of the following problems? 1. Little interest or pleasure in doing things: not at all 2. Feeling down, depressed, or hopeless: not at all 3. Trouble falling or staying asleep, or sleeping too much: not at all 4. Feeling tired or having little energy: not at all 5. Poor appetite or overeating: not at all 6. Feeling bad about yourself - or that you are a failure or have let yourself or your family down: not at all 7. Trouble concentrating on things, such as reading the newspaper or watching television: not at all 8. Moving or speaking so slowly that other people could have noticed. Or the opposite - being so fidgety or restless that you have been moving around a lot more than usual: not at all 9. Thoughts that you would be better off or of hurting yourself in some way: not at all Total score: 0 Depression Screening Interpretation: Negative Depression Screening Done: Yes 46194 - PHQ-9 Billing: Yes Source: Developed by Drs. Ivan Humphrey, Rachel Sigala, Bradley Rojas and colleagues, with an educational henry from [employer]. Thrive Questionnaire Date Thrive assessed: 11/02/23 I am a: Patient What is your living situation today?: I have a steady place to live Within the past 12 months, did the food you bought not last and you didn't have the money to get more?: Never true Within the past 12 months, did you worry whether your food would run out before you got money to buy more?: Never true Do you have trouble paying for medicines?: No Do you have trouble getting transportation to medical appointments?: No Do you have trouble paying your heating and electricity bill?: No Do you have trouble taking care of your child, family member or friend?: No Do you have trouble with day-to-day activities such as bathing, preparing meals, shopping, managing finances, etc.?: No Are you currently unemployed and looking for a job?: No Are you interested in more education?: No Please select the resources that you would like help with: None THRIVE Score: 0 AUDIT C Alcohol Use Questionnaire (AUDIT-C) 1. How often do you have a drink containing alcohol?: Monthly or less 2. How many drinks containing alcohol do you have on a typical day when you are drinking?: 1 or 2 3. How often do you have six or more drinks on one occasion?: Never Total Score: 1 Score Reviewed/Action Taken: Yes JOE-7 AMB Questionnaire JOE-7 Date JOE - 7 assessed: 11/02/23 Feeling nervous, anxious, or on edge: 0 = Not at all Not being able to stop or control worryin = Not at all Worrying too much about different things: 0 = Not at all Trouble relaxin = Not at all Being so restless that it is hard to sit still: 0 = Not at all Becoming easily annoyed or irritable: 0 = Not at all Feeling afraid as if something awful might happen: 0 = Not at all Total JOE-7 score (0-4 normal; 5-9 mild; 10-14 moderate; 15-21 severe): 0 Source: Developed by Drs. Ivan Humphrey, Rachel Sigala, Bradley Rojas and colleagues, with an educational henry from [employer]. JOE-7 Assessment Billing JOE-7 Assessment Tool: JOE-7 Assessment 49112 Review of Systems Const Denies chills, Denies headache(s) and Denies weight loss ENT Denies headache(s) Card Denies chest pain, Denies syncope, Denies irregular heart rhythm and Denies dyspnea Resp Denies chest congestion, Denies cough and Denies dyspnea GI Denies abdominal pain, Denies change in stool character, Denies nausea and Denies vomiting Musc Denies deformity and Denies joint swelling Neuro Denies syncope and Denies headache(s) Physical exam (Primary Care) Vital Signs: Last Vital Signs Pulse 60 11/02/23 11:19 BP 120/60 11/02/23 11:19 Pulse Ox 98 11/02/23 11:19 Oxygen Delivery Method Room Air 11/02/23 11:19 BMI result Body Mass Index 31.2 Tobacco/Smoking Status: Tobacco use Status Tobacco use date assessed 11/02/23 11/02/23 11:20 Patient Tobacco Use Status Never used Tobacco 11/02/23 11:20 e-Cigarette/Vaping Use Never Used 11/02/23 11:20 PHQ-9: PHQ-9 Score PHQ-9: Total score 0 11/02/23 11:31 Depression Screening Interpretation: Negative Thrive Assessment: Date of Thrive Assessment Date Thrive assessed 11/02/23 11/02/23 11:20 Const General: cooperative, comfortable, no acute distress and alert Neck Neck: Yes no lymphadenopathy Thyroid: Thyroid normal Resp Effort & Inspection: normal respiratory effort Auscultation: clear to auscultation bilaterally Percussion: percussion normal Cardio Jugular venous distension: no JVD Palpation: normal PMI Rate: regular rate Rhythm: regular rhythm Heart sounds: S1 normal heart sound present and S2 normal heart sound present GI Inspection: Yes normal to inspection Palpation (GI): No hepatosplenomegaly present Skin General skin exam: no rashes or lesions noted Extrem General: Yes no clubbing, cyanosis or edema Results AMB Hemoglobin A1c AMB Hemoglobin A1c 7.5 % Last Edit by SAGE Chaudhary on 11/02/23 11:33 Results Reviewed Results Reviewed: Laboratory Last Values Hgb A1c (Clinic) 7.5 % (4.0-6.0) H 11/02/23 11:20 Assessment and Plan Assessment & Plan (1) Diabetes mellitus with coincident hypertension: Code(s): E11.9 - Type 2 diabetes mellitus without complications; I10 - Essential (primary) hypertension Plan: improve diet; lose weight (2) Hyperlipidemia associated with type 2 diabetes mellitus: Code(s): E11.69 - Type 2 diabetes mellitus with other specified complication; E78.5 - Hyperlipidemia, unspecified Plan: stable; same rx (3) BPH (benign prostatic hyperplasia): Code(s): N40.0 - Benign prostatic hyperplasia without lower urinary tract symptoms Plan: stable; same rx Orders: Orders Lipid Panel Today E78.5 - Hyperlipidemia, unspecified Thyroid Stimulating Hormone Today E03.9 - Hypothyroidism, unspecified Microalbumin, Random (w Creat) Today E11.69 - Type 2 diabetes mellitus with other specified complication, E66.01 - Morbid (severe) obesity due to excess calories AMB Hemoglobin A1c Today E11.9 - Type 2 diabetes mellitus without complications, I10 - Essential (primary) hypertension Glucose Fasting Today R73.9 - Hyperglycemia, unspecified Hemoglobin A1c Today R73.9 - Hyperglycemia, unspecified Coding Level of Care Code Tele Est Pt Level 4 (22548) Diagnoses Diabetes mellitus with coincident hypertension E11.9; I10 Hyperlipidemia associated with type 2 diabetes mellitus E11.69; E78.5 BPH (benign prostatic hyperplasia) N40.0 Additional Codes JOE-7 Assessment Billing - JOE-7 Assessment Tool: JOE-7 Assessment [id number] ([id number])
== END 2023-11-02 11:51 | disposition home or self-care (01) ==
PROVIDERS: PCP Internal Medicine; Visit Provider Internal Medicine
DX: E11.69 Type 2 diabetes mellitus with other specified complication (principal); I10 Essential (primary) hypertension; E78.5 Hyperlipidemia, unspecified; N40.0 Benign prostatic hyperplasia without lower urinary tract symptoms
CPT/HCPCS: 83036; 99214

== ENCOUNTER 2023-11-30 09:01 | Outpatient (REF) | payer MEDICARE, SELFPAY ==
[2023-03-31 07:35] VITALS: BP 100/58; BP 126/68
[2023-07-20 15:41] VITALS: BP 90/50; BMI 30.9
[2023-11-30 12:10] LABS: Estimated Average Glucose 177 mg/dL; Hemoglobin A1c % 7.8 % (<6.0)
[2023-11-30 12:43] LABS: Cholesterol 141 mg/dL (<200); Glucose Fasting 132 mg/dL (60-99); HDL Cholesterol 43 mg/dL (>40); LDL Cholesterol Calculated 79 mg/dL (<100); Triglycerides 99 mg/dL (<150)
[2023-11-30 12:48] LABS: Thyroid Stimulating Hormone 2.45 uIU/mL (0.32-4.0)
[2023-11-30 17:14] LABS: Creatinine Urine 304.17 mg/dL; Microalbum/Creatinine Ratio Ur 81.8 ug/mg cr (<30)
[2023-11-30 17:18] LABS: TSH reflex Free T4 2.48 uIU/mL (0.32-4.0)
[2023-12-04 15:03] LABS: Testosterone, Free 31.9 pg/mL (30.0-135.0); Testosterone, Total 347 ng/dL (250-1100)
== END 2023-11-30 09:02 | disposition home or self-care (01) ==
LOC: HO.WFDLDS 09:01
PROVIDERS: Internal Medicine; Visit Provider Internal Medicine Cardiovascular Disease
DX: R73.9 Hyperglycemia, unspecified (principal); E78.5 Hyperlipidemia, unspecified; E03.9 Hypothyroidism, unspecified; I25.10 Atherosclerotic heart disease of native coronary artery without angina pectoris; E11.69 Type 2 diabetes mellitus with other specified complication; E66.01 Morbid (severe) obesity due to excess calories
CPT/HCPCS: 36415; 80061; 82043; 82570; 82947; 83036; 84402; 84403; 84443

== ENCOUNTER 2023-12-07 13:28 | Outpatient (AMB) | payer MEDICARE, SELFPAY ==
[2023-03-31 07:35] VITALS: BP 100/58; BP 126/68
[2023-07-20 15:41] VITALS: BP 90/50; BMI 30.9
[2023-12-07 13:30] VITALS: BP 130/72; PULSE 62; O2SAT 98; BMI 30.1
--- NOTE | 2023-12-07 13:30 | A.OFFPC_ITS ---
Vital Signs 12/07/23 13:30 Height 5 ft 9 in Weight 204 lb BMI 30.1 BP 130/72 Blood Pressure Location Lt brachial Position Sitting Pulse 62 Pulse Source Pulse Oximeter Pulse Oximetry (%) 98 Oxygen Delivery Method Room Air Intake Visit Reasons: LT hip pain Drafter Construction Required: No Apprentice Funeral Director: Not Required per policy Accompanied by: Self / Same As Patient Allergies BERNABE Inhibitors [BERNABE INHIBITORS] Allergy (Intermediate, Verified 12/07/23 13:31) DEPRESSION latex [LATEX] Allergy (Intermediate, Verified 12/07/23 13:31) RASH terazosin Allergy (Intermediate, Verified 12/07/23 13:31) hives, swollen lips and hoarseness pravastatin [Pravachol] Allergy (Unknown, Verified 12/07/23 13:31) unknown bee pollen [bee stings] Adverse Reaction (Severe, Verified 12/07/23 13:31) Anaphylaxis Beta-Blockers (Beta-Adrenergic Bloc [BETA-BLOCKERS (BETA-ADRENERGIC BLOC] Adverse Reaction (Intermediate, Verified 12/07/23 13:31) DECREASED HR, DEPRESSION amoxicillin Allergy (Intermediate, Uncoded 12/07/23 13:31) hives, swollen lips, and hoarseness cephlex: levofloxacin Allergy (Intermediate, Uncoded 12/07/23 13:31) hives, swollen lips, and hoarseness clindomycin Allergy (Intermediate, Uncoded 12/07/23 13:31) hives, swollen lips, and hoarseness Medication List - Last Reconciled 12/08/23 by Mckinley Choi MD aspirin (Adult Low Dose Aspirin) 81 mg PO DAILY bisoprolol fumarate 2.5 mg PO DAILY blood sugar diagnostic ([employer] Verio test strips) 1 Strip Once a Day blood-glucose meter ([employer] Verio Meter) to check blood sugars once a day diphenhydramine HCl (Benadryl Allergy) 25 mg PO TID PRN finasteride 5 mg PO DAILY fluticasone propionate 50 mcg/actuation (Flonase Allergy Relief) 1 spray intranasal DAILY isosorbide mononitrate ER 30 mg (1/2 x 60 mg) PO DAILY lancets ([employer] Delica Lancets) to check blood sugars once a day metformin ER 500 mg PO BID nitroglycerin 0.4 mg sublingual Q5M PRN ranolazine ER 500 mg PO BID rosuvastatin (Crestor) 40 mg PO DAILY Tobacco use date assessed: 11/02/23 Fall risk assessment: No Falls in past year Last assessed Fall Risk: 12/07/23 Dental Screening Dental Screen Date: 11/02/23 HPI LT hip pain HPI Details left low back pain for a month [facility] Medical History Pacemaker (~2021) Bradycardia (~2021) History of COVID-19 BPH (benign prostatic hyperplasia) Hypertension Obesity Hyperlipidemia associated with type 2 diabetes mellitus Tubular adenoma of colon COVID-19 vaccine administered Diabetes mellitus History of colon cancer (~2010) Cardiomyopathy PVC (premature ventricular contraction) SVT (supraventricular tachycardia) CAD (coronary artery disease) Surgical History History of pacemaker (~2021) History of coronary artery bypass graft x 3 (~1998) History of hernia repair (~2012) History of colonoscopy History of left knee surgery (~2003) History of right knee surgery History of colostomy (~2010) History of partial colectomy (~2011) History of tonsillectomy History of repair of rotator cuff History of cataract surgery (~2013) History of cardiac cath History of colostomy reversal (~2011) Family History Father Cancer, colon Mother Cancer of breast Cancer of lung Sister Cancer Social History Household Members: Spouse Housing: House Are you a primary hospice patient care secretary to a significant other at home: No Do you presently have visiting nurse or other home services: No Alcohol intake: current Alcohol intake frequency: 0-2 drinks per day Comment: previously medicated with po tylenol Patient Tobacco Use Status: Never used Tobacco e-Cigarette/Vaping Use: Never Used Second Hand Smoke Exposure: No service: No Current occupational status: retired Cognitive needs: No Hearing needs: No Vision needs: Yes (glasses) Questionnaire Thrive Questionnaire Date Thrive assessed: 11/02/23 JOE-7 AMB Questionnaire JOE-7 Date JOE - 7 assessed: 11/02/23 Source: Developed by Drs. Ivan Humphrey, Rachel Sigala, Bradley Rojas and colleagues, with an educational henry from [employer]. Review of Systems Const Denies chills, Denies headache(s) and Denies weight loss ENT Denies headache(s) Card Denies chest pain, Denies syncope, Denies irregular heart rhythm and Denies dyspnea Resp Denies chest congestion, Denies cough and Denies dyspnea GI Denies abdominal pain, Denies change in stool character, Denies nausea and Denies vomiting Musc Denies deformity and Denies joint swelling Neuro Denies syncope and Denies headache(s) Physical exam (Primary Care) Vital Signs: Last Vital Signs Pulse 62 12/07/23 13:30 BP 130/72 12/07/23 13:30 Pulse Ox 98 12/07/23 13:30 Oxygen Delivery Method Room Air 12/07/23 13:30 BMI result Body Mass Index 30.1 Tobacco/Smoking Status: Tobacco use Status Tobacco use date assessed 11/02/23 12/07/23 13:30 Patient Tobacco Use Status Never used Tobacco 12/07/23 13:30 e-Cigarette/Vaping Use Never Used 12/07/23 13:30 Thrive Assessment: Date of Thrive Assessment Date Thrive assessed 11/02/23 12/07/23 13:30 Const General: cooperative, comfortable, no acute distress and alert Neck Neck: Yes no lymphadenopathy Thyroid: Thyroid normal Resp Effort & Inspection: normal respiratory effort Auscultation: clear to auscultation bilaterally Percussion: percussion normal Cardio Jugular venous distension: no JVD Palpation: normal PMI Rate: regular rate Rhythm: regular rhythm Heart sounds: S1 normal heart sound present and S2 normal heart sound present GI Inspection: Yes normal to inspection Palpation (GI): No hepatosplenomegaly present Skin General skin exam: no rashes or lesions noted Extrem General: Yes no clubbing, cyanosis or edema Assessment and Plan Assessment & Plan (1) Low back pain: Code(s): M54.50 - Low back pain, unspecified Plan: rx and xr Orders: Orders XR lumbar spine 2-3V 12/07/23 M54.9 - Dorsalgia, unspecified XR hip LT 1V 12/07/23 M25.559 - Pain in unspecified hip Coding Level of Care Code Est Pt Level 3 (92043) Diagnoses Low back pain M54.50
--- OUTSIDE RECORDS SUMMARY | 2023-12-07 13:30 | XMS_ITS | Patient Health Record ---
Author Organization Ivan Llanes III, MD Address [address] [place] [address] Care Team Providers Care Power Shear Operator Name Role Phone Mckinley Choi MD Primary Care Provider Unavaila Ivan Cisse Unavailable [phone] ALLERGIES Allergen (clinical drug ingredient) Drug/Non Drug Allergy documented on EMR Reaction Allergy Type Onset Date Status Beta Blockers syncope Drug Allergy Act audra Bee (uncoded) Unknown Allergy Active surgical tape (uncoded) burn Allergy Active REASON FOR REFERRAL No Information MEDICATIONS Medication SIG (Take, Route, Frequency, Duration) Notes Start Date End Date Status Lipitor 20 mg 1 tablet Orally Once a day Active Finasteride 5 MG Oral Act audra Tylenol 325 MG 1 tablet as needed O rally every 6 hrs Active Aspirin Adult Low Strength 81 MG 1 tablet Orally Once a day Active amLODIPine Besylate 2.5 MG TAKE 1 TABLET BY MOUTH EVERY DAY Oral Active Isosorbide Mononitrate ER 60 MG Oral Active Zetia 10 MG 1 tablet Orally Once a day Active Metamucil 30.9 % as directed Orally o nce a day Active Rosuvastatin Calcium 40 MG Oral Active metFORMIN HCl 500 MG 1 tablet with a oumou l Orally twice a day Active ZyrTEC Allergy 10 MG 1 tablet Orally Onc e a day Active Bisoprolol Fumarate 5 MG Oral Active Ranolazine ER 500 MG Oral Active SOCIAL HISTORY Tobacco Use: Social History Observation Description Date Details (start date - stop date) Never Smoker NA - NA Sex Assigned At : Social History Observation Description Sex Assigned At Unknown Tobacco Use/Smoking Question Answer Notes Patient is a nonsmoker Additional Findings: Tobacco Non-User Aggressive non-smoker Alcohol Screen Question Answer Notes How often did you have a dri nk containing alcohol in the past year? 4 or more times a week (4 points) How many drinks did you have on a typical day when you were drinking in the past year? 1 or 2 drinks (0 point) How often did you have 6 or more drinks on one occasion in the past year? Never (0 point) PROBLEMS Problem Type ICD Code Onset Dates Problem Status W/U Status Risk SNOMED Code Notes Problem Obesity (E66.9) Active confirmed 137763 001 He has lost a pound. We discussed diet and nutrition today. We reviewed his weight loss strategy. We made a plan to lose weight at a rate of one half of a pound per week. Problem BPH (benign prostatic hyperplasia) (N40.0) Active confirmed [id number] He is taking 3 medications arises from sleep 4 times a night. He will follow up with primary care and urology. Problem Osteoarthritis of multiple joints, unspecified osteoarthritis type (M15.9) Active confirmed [id number] He has mild symptoms arthritis in his knees. He is taking ibuprofen with good relief. Problem Erythrocytosis (D75.1) Active confirmed [id number] Numerous recen t CBC determinations show his hematocrit to be normal. Problem Coronary artery disease involving [place] coronary artery without angina pectoris, unspecified whether [place] or transplanted heart (I25.10) Active confirmed [id number] Since his last visit he has had no episodes of angina with exertion or at rest. There is no need to change his regimen at this time. Problem Malignant neoplasm of colon, unspecified part of colon (C18.9) Active confirmed [id number] There is no sign of disease recurrence or of a new primary tumor. He will continue with surveillance and periodic colonoscopies. Problem Hyperlipidemia type II (E78.01) Active confirmed [id number] His lipi ds are stable and no change in his regimen was made today. I advised aggressive weight loss. VITAL SIGNS Heart Rate 60 /min 04/07/2023 Temperature 97.3 degrees Fahrenheit 04/07/2023 Blood pressure diastolic 60 mm Hg 04/07/2023 Height 69 in 04/07/2023 Blood pressure systolic 95 mm Hg 04/07/2023 Weight 210 lbs 04/07/2023 BMI 31.01 kg/m2 04/07/2023 Encounters Encounter Location Date Provider Diagnosis Ivan Llanes III, MD [address] [place] [address] [address] [place], [place] [address] 04/07/2023 Ivan Llanes Malignant neoplasm o f colon, unspecified part of colon C18.9 ; BPH (benign prostatic hyperplasia) N40.0 ; Obesity E66.9 and Hyperlipidemia type II E78.01 ASSESSMENTS Encounter Date Diagnosis Assessment Notes Treatment Notes Treatment Clinical Notes 04/07/2023 BPH (benign prostati c hyperplasia) (ICD-10 - N40.0) He is taking 3 medications arises from sleep 4 times a night. He will follow up with primary care and urology. 04/07/2023 Malignant neoplasm o f colon, unspecified part of colon (ICD-10 - C18.9) There is no sign of disease recurrence or of a new primary tumor. He will continue with surveillance and periodic colonoscopies. 04/07/2023 Obesity (ICD-10 - E66.9) He has lost a pound. We discussed diet and nutrition today. We reviewed his weight loss strategy. We made a plan to lose weight at a rate of one half of a pound per week. 04/07/2023 Hyperlipidemia type II (ICD-10 - E78.01) His lipids are stable and no change in his regimen was made today. I advised aggressive weight loss. PLAN OF TREATMENT Pending Test Test Name Order Date PROFILE, FASTING (COMPREHENSIVE METABOLI C) 09/13/2019 PROFILE, FASTING (COMPREHENSIVE METABOLI C) 04/07/2023 PROFILE, FASTING (COMPREHENSIVE METABOLI C) 09/12/2020 PROFILE, RANDOM (COMPREHENSIVE METABOLIC ) 07/11/2018 PROFILE, RANDOM (COMPREHENSIVE METABOLIC ) 01/09/2018 HEMOGLOBIN A1C (GLYCOHEMOGLOBIN) 021 LIPID PANEL 09/12/2020 LIPID PANEL 09/13/2019 LIPID PANEL 04/07/2023 PSA, TOTAL 09/13/2019 PSA, TOTAL 04/07/2023 CEA 01/09/2018 CEA 07/11/2018 CBC w DIFF 04/07/2023 CBC w DIFF 12/19/2017 CBC w DIFF 01/09/2018 CBC w DIFF 09/12/2020 CBC w DIFF 09/13/2019 CBC w DIFF 07/11/2018 RETICULOCYTE COUNT,CORRECTED 12/19/2017 ERYTHROPOIETIN 12/19/2017 JAK2 MUTATION PCR 12/19/2017 Next Appt Details Provider Name:Ivan Brandonrne, 04/06/2024 11:00:00 AM, [address], [place], [address], Insurance Providers Payer Name Payer Address Payer Phone Subscriber Number Group Number Insured Name Patient Relationship to Insured Coverage Start Date Coverage End Date MEDICARE NGS [address] [place] [phone] [id number] Kartik Ortiz Self - patient is the insured [facility] [address] [place], [place] [id number] Kartik Ortiz Self - patient is the insured MEDICAL (GENERAL) HISTORY Medical History History ICD Code coronary artery disease CABG 1998 hyperlipidemia 09/2011 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
== END 2023-12-07 16:42 | disposition home or self-care (01) ==
LOC: HO.HMGH 13:28
PROVIDERS: PCP Internal Medicine; Visit Provider Internal Medicine
DX: M54.50 Low back pain, unspecified (principal)
CPT/HCPCS: 99213

== ENCOUNTER 2023-12-07 13:59 | Outpatient (REF) | payer MEDICARE, SELFPAY ==
[2023-03-31 07:35] VITALS: BP 100/58; BP 126/68
[2023-07-20 15:41] VITALS: BP 90/50; BMI 30.9
--- NOTE | ~2023-12-07 | XR_ITS ---
EXAMINATION: CR LUMBAR SPINE. CR LEFT HIP. CLINICAL INFORMATION: Dorsalgia, unspecified. Pain in unspecified hip. COMPARISON: Lumbar spine films dated 10/07/2016. CT scan of the abdomen and pelvis dated 08/02/2011. TECHNIQUE: 3 views of the lumbar spine. 2 views of the left hip. FINDINGS: Lumbar spine: Minimal convex right thoracolumbar curvature, possibly positional. Persistent mild grade 1 anterolisthesis of L4 on L5 with associated mild disc space narrowing and moderate facet arthropathy, unchanged. Severe degenerative disc disease at L5-S1 with disc space narrowing, vacuum disc phenomena and, vertebral endplate sclerosis and spurring and significant facet arthropathy, also unchanged, likely causing spinal stenosis at this level. There is progressive disc space narrowing at L2-3 with now moderate loss in height seen with associated mild vertebral spondylosis. There is stable mild degenerative disc space narrowing and spurring at L3-4. Moderate facet arthropathy is seen throughout the lobar spine. Atherosclerotic calcification of the aorta noted. Left hip: Diffuse osteopenia. No acute fracture or dislocation. No significant joint space narrowing or spurring. The sacroiliac joints and pubic symphysis are intact. Moderate volume stool is seen throughout the colon and rectum. Atherosclerotic calcifications of the femoral vessels is noted. XR/XR hip LT 1V IMPRESSION: * Diffuse osteopenia. No acute fracture of the lumbar spine or left hip. * Chronic grade 1 anterolisthesis of L4 on L5 with mild associated degenerative disc disease and moderate facet arthropathy, unchanged. * Progressive degenerative disc disease at L2-3. * Severe degenerative disc disease and facet arthropathy at L5-S1, similar to the prior exam, likely causing spinal stenosis. * Moderate facet arthropathy throughout the lumbar spine. * Atherosclerotic atherosclerotic calcifications of the aorta and femoral vessels.
--- NOTE | ~2023-12-07 | XR_ITS ---
EXAMINATION: CR LUMBAR SPINE. CR LEFT HIP. CLINICAL INFORMATION: Dorsalgia, unspecified. Pain in unspecified hip. COMPARISON: Lumbar spine films dated 10/07/2016. CT scan of the abdomen and pelvis dated 08/02/2011. TECHNIQUE: 3 views of the lumbar spine. 2 views of the left hip. FINDINGS: Lumbar spine: Minimal convex right thoracolumbar curvature, possibly positional. Persistent mild grade 1 anterolisthesis of L4 on L5 with associated mild disc space narrowing and moderate facet arthropathy, unchanged. Severe degenerative disc disease at L5-S1 with disc space narrowing, vacuum disc phenomena and, vertebral endplate sclerosis and spurring and significant facet arthropathy, also unchanged, likely causing spinal stenosis at this level. There is progressive disc space narrowing at L2-3 with now moderate loss in height seen with associated mild vertebral spondylosis. There is stable mild degenerative disc space narrowing and spurring at L3-4. Moderate facet arthropathy is seen throughout the lobar spine. Atherosclerotic calcification of the aorta noted. Left hip: Diffuse osteopenia. No acute fracture or dislocation. No significant joint space narrowing or spurring. The sacroiliac joints and pubic symphysis are intact. Moderate volume stool is seen throughout the colon and rectum. Atherosclerotic calcifications of the femoral vessels is noted. XR/XR lumbar spine 2-3V IMPRESSION: * Diffuse osteopenia. No acute fracture of the lumbar spine or left hip. * Chronic grade 1 anterolisthesis of L4 on L5 with mild associated degenerative disc disease and moderate facet arthropathy, unchanged. * Progressive degenerative disc disease at L2-3. * Severe degenerative disc disease and facet arthropathy at L5-S1, similar to the prior exam, likely causing spinal stenosis. * Moderate facet arthropathy throughout the lumbar spine. * Atherosclerotic atherosclerotic calcifications of the aorta and femoral vessels.
== END 2023-12-07 14:00 | disposition home or self-care (01) ==
LOC: HO.XRAY 13:59
PROVIDERS: PCP Internal Medicine; Visit Provider Internal Medicine
DX: M54.9 Dorsalgia, unspecified (principal); M25.552 Pain in left hip
CPT/HCPCS: 72100; 73501

== ENCOUNTER → 2023-12-21 23:59 | Outpatient (BNV) | payer MEDICARE, SELFPAY ==
[2023-03-31 07:35] VITALS: BP 100/58; BP 126/68
[2023-07-20 15:41] VITALS: BP 90/50; BMI 30.9
--- NOTE | 2023-12-22 17:40 | MHC.OFFVIS ---
Intake Visit Reasons: Remote device check- [facility] Allergies BERNABE Inhibitors [BERNABE INHIBITORS] Allergy (Intermediate, Verified 12/07/23 13:31) DEPRESSION latex [LATEX] Allergy (Intermediate, Verified 12/07/23 13:31) RASH terazosin Allergy (Intermediate, Verified 12/07/23 13:31) hives, swollen lips and hoarseness pravastatin [Pravachol] Allergy (Unknown, Verified 12/07/23 13:31) unknown bee pollen [bee stings] Adverse Reaction (Severe, Verified 12/07/23 13:31) Anaphylaxis Beta-Blockers (Beta-Adrenergic Bloc [BETA-BLOCKERS (BETA-ADRENERGIC BLOC] Adverse Reaction (Intermediate, Verified 12/07/23 13:31) DECREASED HR, DEPRESSION amoxicillin Allergy (Intermediate, Uncoded 12/07/23 13:31) hives, swollen lips, and hoarseness cephlex: levofloxacin Allergy (Intermediate, Uncoded 12/07/23 13:31) hives, swollen lips, and hoarseness clindomycin Allergy (Intermediate, Uncoded 12/07/23 13:31) hives, swollen lips, and hoarseness [facility] Medical History Pacemaker (~2021) Bradycardia (~2021) History of COVID-19 BPH (benign prostatic hyperplasia) Hypertension Obesity Hyperlipidemia associated with type 2 diabetes mellitus Tubular adenoma of colon COVID-19 vaccine administered Diabetes mellitus History of colon cancer (~2010) Cardiomyopathy PVC (premature ventricular contraction) SVT (supraventricular tachycardia) CAD (coronary artery disease) Surgical History History of pacemaker (~2021) History of coronary artery bypass graft x 3 (~1998) History of hernia repair (~2012) History of colonoscopy History of left knee surgery (~2003) History of right knee surgery History of colostomy (~2010) History of partial colectomy (~2011) History of tonsillectomy History of repair of rotator cuff History of cataract surgery (~2013) History of cardiac cath History of colostomy reversal (~2011) Family History Father Cancer, colon Mother Cancer of breast Cancer of lung Sister Cancer Social History Household Members: Spouse Housing: House Are you a primary manager intensive care unit to a significant other at home: No Do you presently have visiting nurse or other home services: No Alcohol intake: current Alcohol intake frequency: 0-2 drinks per day Comment: previously medicated with po tylenol Patient Tobacco Use Status: Never used Tobacco e-Cigarette/Vaping Use: Never Used Second Hand Smoke Exposure: No service: No Current occupational status: retired Cognitive needs: No Hearing needs: No Vision needs: Yes (glasses) Office Procedures Cardiac Device Check Cardiac Device Check Details: Remote pacemaker report generated 12/21/2023. Pacemaker function is adequate [id number] Cardiac Device Interrogation, pacemaker Procedure code (CPT) selection complete Assessment & Plan Assessment & Plan (1) Pacemaker: Onset Date: ~2021 Comment: ([facility] DCPP - placed 06/18/22) Code(s): Z95.0 - Presence of cardiac pacemaker Category: Medical Plan: See above Coding Level of Care Code Procedure Only Diagnoses Pacemaker Z95.0 CPT Codes Cardiac Device Check - Cardiac Device 12: [id number] Cardiac Device Interrogation, pacemaker ([id number])
== END ==
PROVIDERS: PCP Internal Medicine; Visit Provider Internal Medicine Cardiovascular Disease
DX: Z45.018 Encounter for adjustment and management of other part of cardiac pacemaker (principal)
CPT/HCPCS: 93294

== ENCOUNTER 2023-12-28 11:18 | Outpatient (AMB) | payer MEDICARE, SELFPAY ==
[2023-03-31 07:35] VITALS: BP 100/58; BP 126/68
[2023-07-20 15:41] VITALS: BP 90/50; BMI 30.9
--- NOTE | 2023-12-28 11:25 | MHC.OFFVIS ---
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 Required: No Merchandise Flow Associate: Merchandise Flow Associate Present Accompanied by: Spouse Allergies BERNABE Inhibitors [BERNABE INHIBITORS] Allergy (Intermediate, Verified 12/07/23 13:31) DEPRESSION latex [LATEX] Allergy (Intermediate, Verified 12/07/23 13:31) RASH terazosin Allergy (Intermediate, Verified 12/07/23 13:31) hives, swollen lips and hoarseness pravastatin [Pravachol] Allergy (Unknown, Verified 12/07/23 13:31) unknown bee pollen [bee stings] Adverse Reaction (Severe, Verified 12/07/23 13:31) Anaphylaxis Beta-Blockers (Beta-Adrenergic Bloc [BETA-BLOCKERS (BETA-ADRENERGIC BLOC] Adverse Reaction (Intermediate, Verified 12/07/23 13:31) DECREASED HR, DEPRESSION amoxicillin Allergy (Intermediate, Uncoded 12/07/23 13:31) hives, swollen lips, and hoarseness cephlex: levofloxacin Allergy (Intermediate, Uncoded 12/07/23 13:31) hives, swollen lips, and hoarseness clindomycin Allergy (Intermediate, Uncoded 12/07/23 13:31) hives, swollen lips, and hoarseness Medication List - Last Reconciled 12/28/23 by Marquise Espinoza MD aspirin (Adult Low Dose Aspirin) 81 mg PO DAILY bisoprolol fumarate 2.5 mg PO DAILY blood sugar diagnostic (Korriouch Verio test strips) 1 Strip Once a Day blood-glucose meter (Korriouch Verio Meter) to check blood sugars once a day diphenhydramine HCl (Benadryl Allergy) 25 mg PO TID PRN ezetimibe (Zetia) 10 mg PO DAILY finasteride 5 mg PO DAILY fluticasone propionate 50 mcg/actuation (Flonase Allergy Relief) 1 spray intranasal DAILY isosorbide mononitrate ER 30 mg (1/2 x 60 mg) PO DAILY lancets (Newco LS15 Delica Lancets) to check blood sugars once a day metformin ER 500 mg PO BID nitroglycerin 0.4 mg sublingual Q5M PRN ranolazine ER 500 mg PO BID rosuvastatin 40 mg PO DAILY HPI Comments Details: Kartik comes for follow-up, accompanied by his . He had 1 episode of fast heart rate he said yesterday that lasted 10 minutes. We reviewed the pacer telemetry and shows a 12nd SVT episode at 180 beats per minute. He said another episode about couple of months ago at nighttime which lasted for 2 hours. However there is no clear episodes SVT around that time. Does have frequent PVCs. He also complains of increasing symptoms of shortness of breath although when I asked him as to describing the symptoms usually with more unusual activity such as painting his deck and planting tomatoes plans. He does not usually do these kind of activities although he thinks that recently when he went to the grocery store he was more short of breath than usual. He does not get much shortness of breath with his regular cardiac rehab activity. He takes all his medications. His blood pressure is on the lower side but he denies any lightheadedness, syncope. No heart failure symptoms of orthopnea, PND, leg edema. [facility] Medical History Pacemaker (~2021) Bradycardia (~2021) History of COVID-19 BPH (benign prostatic hyperplasia) Hypertension Obesity Hyperlipidemia associated with type 2 diabetes mellitus Tubular adenoma of colon COVID-19 vaccine administered Diabetes mellitus History of colon cancer (~2010) Cardiomyopathy PVC (premature ventricular contraction) SVT (supraventricular tachycardia) CAD (coronary artery disease) Surgical History History of pacemaker (~2021) History of coronary artery bypass graft x 3 (~1998) History of hernia repair (~2012) History of colonoscopy History of left knee surgery (~2003) History of right knee surgery History of colostomy (~2010) History of partial colectomy (~2011) History of tonsillectomy History of repair of rotator cuff History of cataract surgery (~2013) History of cardiac cath History of colostomy reversal (~2011) Family History Father Cancer, colon Mother Cancer of breast Cancer of lung Sister Cancer Social History Household Members: Spouse Housing: House Are you a primary child day care teacher to a significant other at home: No Do you presently have visiting nurse or other home services: No Alcohol intake: current Alcohol intake frequency: 0-2 drinks per day Comment: previously medicated with po tylenol Patient Tobacco Use Status: Never used Tobacco e-Cigarette/Vaping Use: Never Used Second Hand Smoke Exposure: No service: No Current occupational status: retired Cognitive needs: No Hearing needs: No Vision needs: Yes (glasses) Review of Systems Const Denies chills, Denies fatigue, Denies fever(s), Denies frequent falls, Denies weakness, Denies weight gain and Denies weight loss ENT Denies dizziness Card Denies chest pain, Denies leg edema, Denies lightheadedness, Denies palpitations, Denies dyspnea, Denies dyspnea on exertion, Denies orthopnea and Denies other (loss of consciousness) Resp Denies cough, Denies dyspnea and Denies dyspnea on exertion GI Denies hematochezia and Denies change in stool character Musc Denies abnormal gait, Denies muscle weakness, Denies numbness, Denies radiating pain into limb and Denies tingling Neuro Denies abnormal gait, Denies dizziness, Denies frequent falls, Denies numbness, Denies tingling and Denies weakness Endo Denies fatigue and Denies palpitations Physical Exam Vital Signs: Last Vital Signs Pulse 60 12/28/23 11:26 BP 90/62 12/28/23 11:26 BMI result Body Mass Index 29.9 Const General: cooperative, comfortable, no acute distress, alert, awake and well groomed Nutritional Appearance: obese Orientation/consciousness: patient oriented x3 HEENT Head: Yes normal to inspection Eyes Sclerae: sclerae normal Neck Neck: Yes trachea midline, Yes supple and Yes no JVD Carotids: normal carotid upstroke Chest Chest palpation & inspection: normal inspection of the chest Resp Effort & Inspection: normal respiratory effort Auscultation: clear to auscultation bilaterally, no crackles, no rales, no rhonchi and no wheezes Cardio Jugular venous distension: no JVD Rate: regular rate Rhythm: regular rhythm Heart sounds: S1 normal heart sound present, S2 normal heart sound present, no gallops, no murmurs and no rubs Peripheral pulses: Peripheral pulses 2+ throughout GI Inspection: Yes normal to inspection Skin General skin exam: no rashes or lesions noted Neuro General: patient oriented x3 Extrem General: Yes normal to inspection, No no pedal edema and No calf tenderness Office Procedures Cardiac Device Check Cardiac Device Check Details: Dual-chamber [place] pacemaker in place. Programmed in DDDR at 60 beats per minute. Atrial pacing 62% of time. One episode of SVT noted yesterday that lasted 10 seconds. No episodes of atrial fibrillation noted. Atrial ventricular capture thresholds are adequate. Atrial ventricular sensing is excellent. Pacing lead impedance is stable. Battery life is at 99 and half years. [id number] Cardiac Device Check, pacemaker dual lead Procedure code (CPT) selection complete EKG Details: Atrially paced rhythm with ventricularly sensed rhythm with nonspecific ST T wave changes 40364-[id number], Complete Assessment & Plan Assessment & Plan (1) SVT (supraventricular tachycardia): Code(s): I47.1 - Supraventricular tachycardia Category: Medical Plan: Patient with symptoms of palpitation yesterday although I told him that by pacer telemetry it only lasted 10 seconds. He had another episode about couple of months ago which is not shown on pacer telemetry. He has not very clear about the type of symptoms but he does describe rapid heart rate although he also has frequent PVCs. He has not sure as to the type of symptoms. We discussed about vagal maneuvers. Not uptitrate his bisoprolol therapy given his low blood pressure. In future if he continues to have very prolonged episodes of SVT can consider adding digoxin and/or referring to EPS for ablation therapy although this has been done in the past. (2) CAD (coronary artery disease): Comment: (Hx CABG x 3 - FIELDS to LAD, radial graft to Ramus, free GOYO to RCA - 1998) Code(s): I25.10 - Atherosclerotic heart disease of [place] coronary artery without angina pectoris Category: Medical Plan: CAD with three-vessel coronary artery bypass grafting 1998 with cardiac catheterization last year showing patent grafts with [place] vessel was completely occluded. There was no obvious site for percutaneous intervention. He has been managed medically, see below. Continue low-dose aspirin therapy. Continue high-intensity statin therapy along with ezetimibe therapy with last LDL 77 mg/dL which is not well optimized. I have advised him to participate in more intense lifestyle modification. Blood pressures over corrected see below. Continue aggressive management of diabetes goal hemoglobin A1c less than 7%. Encouraged to continue to participate in physical activity (3) Pacemaker: Onset Date: ~2021 Comment: ([employer] DCPP - placed 06/18/22) Code(s): Z95.0 - Presence of cardiac pacemaker Category: Medical Plan: Cardiac pacemaker in-situ for chronotropic incompetence sick sinus syndrome. Pacemaker is working well at this point time. Will continue monitor remotely as well as in the clinic. (4) SOB (shortness of breath) on exertion: Code(s): R06.02 - Shortness of breath Category: Medical Plan: Shortness of breath on exertion in his case is very difficult symptom to decipher. He says the symptoms are similar to prior to his coronary artery bypass grafting and possible this is ischemia related. However there is very limited options for treatment. Discussed with him that he has patent grafts unless his graft has significant stenosis which is unlikely over the last year there is not much room for interventional therapy including percutaneous intervention as his [place] vessels are completely occluded. Will review that and if he continues to have symptoms will pursue cardiac catheterization with hemodynamic monitoring again. Check BNP today. He is encouraged to continue to participate in cardiac rehab. Can not further maximize his isosorbide therapy and due to low blood pressure will discontinue the same. Maximize Ranexa to 1000 mg b.i.d.. Continue current bisoprolol therapy. Advised to monitor blood pressure at home maintain a log. Goals of therapy were discussed. Have advised him to pace himself with activity level and when he gets shortness of breath take it easy and then continue with the activity level at a slower pace. Will follow up in the clinic in 3 months time, sooner p.r.n.. Greater than 40 minutes was spent in managing his care Thank you for allowing me to partake in his care Orders: Orders CA echo transthoracic complete Today R06.02 - Shortness of breath B Type Natriuretic Peptide Today R06.02 - Shortness of breath Medications: New ranolazine ER 1,000 mg PO Q12H 60 ea 5RF Discontinued ranolazine ER Discontinued Reason: Doctor's Order 500 mg PO BID 60 tabs 5RF Coding Level of Care Code Est Pt Level 5 (00346) Diagnoses SVT (supraventricular tachycardia) I47.1 CAD (coronary artery disease) I25.10 Pacemaker Z95.0 SOB (shortness of breath) on exertion R06.02 CPT Codes Cardiac Device Check - Cardiac Device 2: [id number] Cardiac Device Check, pacemaker dual lead ([id number]) EKG - CPT: 65575-[id number], Complete ([id number])
[2023-12-28 11:26] VITALS: BP 90/62; PULSE 60; BMI 29.9
== END 2023-12-28 13:36 | disposition home or self-care (01) ==
PROVIDERS: PCP Internal Medicine; Visit Provider Internal Medicine Cardiovascular Disease
DX: I47.10 Supraventricular tachycardia, unspecified (principal); I25.810 Atherosclerosis of coronary artery bypass graft(s) without angina pectoris; Z95.0 Presence of cardiac pacemaker; R06.02 Shortness of breath
CPT/HCPCS: 93010; 93280; 99215

== ENCOUNTER → 2023-12-28 11:18 | Outpatient (BNVA) | payer MEDICARE, SELFPAY ==
[2023-03-31 07:35] VITALS: BP 100/58; BP 126/68
[2023-07-20 15:41] VITALS: BP 90/50; BMI 30.9
== END ==
PROVIDERS: PCP Internal Medicine; Visit Provider Internal Medicine Cardiovascular Disease
DX: R06.02 Shortness of breath (principal); I47.10 Supraventricular tachycardia, unspecified; I25.10 Atherosclerotic heart disease of native coronary artery without angina pectoris; I10 Essential (primary) hypertension; Z45.010 Encounter for checking and testing of cardiac pacemaker pulse generator [battery]
CPT/HCPCS: 93005; 93280; 99212

== ENCOUNTER → 2024-01-03 23:59 | Outpatient (BNV) | payer MEDICARE, SELFPAY ==
[2023-03-31 07:35] VITALS: BP 100/58; BP 126/68
[2023-07-20 15:41] VITALS: BP 90/50; BMI 30.9
--- NOTE | 2024-01-10 15:55 | MHC.OFFVIS ---
Intake Visit Reasons: Remote device check- [facility] Allergies BERNABE Inhibitors [BERNABE INHIBITORS] Allergy (Intermediate, Verified 12/07/23 13:31) DEPRESSION latex [LATEX] Allergy (Intermediate, Verified 12/07/23 13:31) RASH terazosin Allergy (Intermediate, Verified 12/07/23 13:31) hives, swollen lips and hoarseness pravastatin [Pravachol] Allergy (Unknown, Verified 12/07/23 13:) unknown bee pollen [bee stings] Adverse Reaction (Severe, Verified 12/07/23 13:31) Anaphylaxis Beta-Blockers (Beta-Adrenergic Bloc [BETA-BLOCKERS (BETA-ADRENERGIC BLOC] Adverse Reaction (Intermediate, Verified 12/07/23 13:31) DECREASED HR, DEPRESSION amoxicillin Allergy (Intermediate, Uncoded 12/07/23 13:31) hives, swollen lips, and hoarseness cephlex: levofloxacin Allergy (Intermediate, Uncoded 12/07/23 13:31) hives, swollen lips, and hoarseness clindomycin Allergy (Intermediate, Uncoded 12/07/23 13:31) hives, swollen lips, and hoarseness [facility] Medical History Pacemaker (~2021) Bradycardia (~2021) History of COVID-19 BPH (benign prostatic hyperplasia) Hypertension Obesity Hyperlipidemia associated with type 2 diabetes mellitus Tubular adenoma of colon COVID-19 vaccine administered Diabetes mellitus History of colon cancer (~2010) Cardiomyopathy PVC (premature ventricular contraction) SVT (supraventricular tachycardia) CAD (coronary artery disease) Surgical History History of pacemaker (~2021) History of coronary artery bypass graft x 3 (~1998) History of hernia repair (~2012) History of colonoscopy History of left knee surgery (~2003) History of right knee surgery History of colostomy (~2010) History of partial colectomy (~2011) History of tonsillectomy History of repair of rotator cuff History of cataract surgery (~2013) History of cardiac cath History of colostomy reversal (~2011) Family History Father Cancer, colon Mother Cancer of breast Cancer of lung Sister Cancer Social History Household Members: Spouse Housing: House Are you a primary childcare provider to a significant other at home: No Do you presently have visiting nurse or other home services: No Alcohol intake: current Alcohol intake frequency: 0-2 drinks per day Comment: previously medicated with po tylenol Patient Tobacco Use Status: Never used Tobacco e-Cigarette/Vaping Use: Never Used Second Hand Smoke Exposure: No service: No Current occupational status: retired Cognitive needs: No Hearing needs: No Vision needs: Yes (glasses) Office Procedures Cardiac Device Check Cardiac Device Check Details: Remote pacemaker report generated 01/03/2024. Pacemaker function is adequate [id number] Cardiac Device Interrogation, pacemaker Procedure code (CPT) selection complete Assessment & Plan Assessment & Plan (1) Pacemaker: Onset Date: ~2021 Comment: ([employer] DCPP - placed 06/18/22) Code(s): Z95.0 - Presence of cardiac pacemaker Category: Medical Plan: See above Coding Level of Care Code Procedure Only Diagnoses Pacemaker Z95.0 CPT Codes Cardiac Device Check - Cardiac Device 12: [id number] Cardiac Device Interrogation, pacemaker ([id number])
== END ==
PROVIDERS: PCP Internal Medicine; Visit Provider Internal Medicine Cardiovascular Disease
DX: Z45.018 Encounter for adjustment and management of other part of cardiac pacemaker (principal)
CPT/HCPCS: 93294

== ENCOUNTER 2024-01-06 11:13 | Outpatient (REF) | payer MEDICARE, SELFPAY ==
[2023-03-31 07:35] VITALS: BP 100/58; BP 126/68
[2023-07-20 15:41] VITALS: BP 90/50; BMI 30.9
[2024-01-06 14:30] LABS: Estimated Average Glucose 169 mg/dL; Hemoglobin A1c % 7.5 % (<6.0)
[2024-01-06 14:57] LABS: B Type Natriuretic Peptide 59 pg/mL (<100)
== END 2024-01-06 11:14 | disposition home or self-care (01) ==
LOC: HO.WFDLDS 11:13
PROVIDERS: Referring Provider Internal Medicine; Visit Provider Internal Medicine Cardiovascular Disease
DX: R73.9 Hyperglycemia, unspecified (principal); R06.02 Shortness of breath
CPT/HCPCS: 36415; 83036; 83880

== ENCOUNTER → 2024-01-10 09:51 | Outpatient (REF) | payer MEDICARE, SELFPAY ==
[2023-03-31 07:35] VITALS: BP 100/58; BP 126/68
[2023-07-20 15:41] VITALS: BP 90/50; BMI 30.9
--- NOTE | 2024-01-10 10:03 | CA_ITS ---
Transthoracic Echocardiogram Patient (Last, First, Middle): Kartik Ortiz, Gender: Male Date of : 1945 Age: 79 Procedure Date: 01/10/2024 Procedure Type: Transthoracic Echocardiogram Location: OP Height: 175.26 cm Weight: 91.17 kg BSA: 2.07 m2 Heart Rate: bpm BP: 96 / 58 mmHg Sap Bw Architect: TO Referring MD: Marquise Espinoza MD Pressing Machine Operator: Marquise Espinoza MD Symptoms: R06.02 - Shortness of breath Study Quality: Fair, contrast ECG Rhythm: Sinus Conclusions: - 1. Moderately reduced LV systolic function with LVEF of 35-40% with grade 1 diastolic dysfunction with underlying regional wall motion abnormality consistent with ischemic cardiomyopathy 2. Mild aortic regurgitation 3. Mildly dilated ascending aorta 3.9 cm 4. Normal RV systolic pressure 5. No pericardial effusion Findings Procedure Information Contrast agent, definity, is being given per protocol without apparent complications. Left Ventricle Normal left ventricular cavity size. There is normal left ventricular wall thickness. The left ventricular systolic function is moderately decreased. The visually estimated ejection fraction is between 35-40%. Spectral Doppler is indicative of an impaired relaxation filling pattern. E/E prime ratio is <8, consistent with normal filling pressures. Evidence suggests grade I (mild) diastolic dysfunction. Wall Motion Rest Echo Findings The inferolateral wall, the mid inferior, and mid inferoseptal segments are hypokinetic. The basal inferior and basal inferoseptal segments are akinetic. All other scored wall segments showed normal motion. Right Ventricle Normal right ventricular cavity size. There is moderate to severely decreased right ventricular systolic function. Atria The left atrium is mildly dilated. There is no evidence of interatrial shunt. The right atrium is mildly dilated. Aortic Valve There is mild calcification of the aortic valve. There is no aortic valve stenosis. There is mild aortic valve regurgitation. Mitral Valve There is mild anterior and moderate posterior mitral leaflet thickening. There is moderate mitral annular calcification. There is trace mitral valve regurgitation. There is no mitral valve stenosis. Pulmonic Valve The pulmonic valve is likely normal. There is trace pulmonic valve regurgitation. Tricuspid Valve Normal tricuspid valve structure. There is mild tricuspid valve regurgitation. The right ventricular systolic pressure is normal. The right ventricular systolic pressure is 34 mmHg. Normal right atrial pressure. There is no evidence of pulmonary hypertension. Great Vessels The pulmonary artery was not well visualized. There is mild dilatation of the ascending aorta measuring 3.90 cm. Small plaque is seen in the sino tubular ridge. Venous The inferior vena cava is normal in size and collapses greater than 50% with inspiration. Pericardium/Pleural There is no evidence of pericardial effusion. Prior Study Comparison Changes noted compared to prior study dated: 12/15/2022. Reduction in LV systolic function Measurements 2D Linear Measurements RVIDd: 3.68 IVSd: 1.10 0.6-0.9/0.6-1.0 cm LVIDd: 4.46 3.9-5.3/4.2-5.9 cm LVIDd Index: 2.15 2.4-3.2/2.2-3.1 cm/m2 LVIDs: 3.51 2.0-3.6 cm LVPWd: 1.12 0.7-1.1 cm LA Diam: 4.20 2.7-3.8/3.0-4.0 cm LAIDs Index: 2.03 1.5-2.3 cm/m2 LV Mass: 217.74 67-162/88-224 g LV Mass Index: 105.19 43-95/49-115 g/m2 LVOT Diam: 2.30 3.0+(-)1.3 cm 2D Volumes LA ESV A/L: 43.90 22-52/18-58 ML/M2 RA ESV A/L: 22.30 19-21 ML/M2 2D Systolic Function EF Teich: 43.40 >55% EF 4C: 38.60 >55% EF 2C: 37.40 >55% EF BiP: 39.90 >55% Mitral Valve MV Pk E: 0.42 MV PK A: 0.42 MV Decel Time: 279.00 E/A: 1.00 E'Lateral: 5.00 E'Medial: 5.11 E/E' Med: 8.10 E/E' Lat: 8.30 PHT: 82.00 MVA PHT: 2.68 Decel [place]: 1.49 Aortic Valve AoV Pk Otoniel: 1.16 AoV Mn Otoniel: 0.84 AoV VTI: 0.25 AoV Pk Grad: 5.00 Aov Mn Grad: 3.00 NGHIA Cont.VTI: 1.98 LVOT LVOT Pk Otoniel: 0.57 LVOT Mn Otoniel: 0.38 LVOT VTI: 0.12 LVOT Pk Grad: 1.00 LVOT Mn Grad: 1.00 LVOT Diam: 2.30 LVOT Area: 4.15 Diastolic Function MV Pk E: 0.42 MV Pk A: 0.42 E/A: 1.00 E'Medial: 5.11 E/E' Med: 8.10 E' Laterial: 5.00 E/E' Lat: 8.30 IVC Diam Exp: 1.97 Right Ventricle TAPSE (mm): 11.60 Tricuspid Valve TR Pk Otoniel: 2.77 TR Pk Grad: 31.00 RA Press: 3.00 RVSP: 34.00 IVC Diam Exp: 1.97 Great Vessels Aorta Sinus of Valsalva: 3.56 2.0-3.[address] [place]: 3.24 1.7-3.4 cm Ao Asc: 3.90 2.1-3.4 cm Ao Arch: 3.20 Updated in Other Vendor System with Status of Final Marquise Espinoza MD electronically signed on 01/11/2024 3:35:35 PM with status of Final
== END ==
LOC: HO.CARD 09:51
PROVIDERS: PCP Internal Medicine; Visit Provider Internal Medicine Cardiovascular Disease
DX: R06.02 Shortness of breath (principal)
CPT/HCPCS: 93306; Q9957

== ENCOUNTER → 2024-01-10 10:03 | Outpatient (BNV) | payer MEDICARE, SELFPAY ==
[2023-03-31 07:35] VITALS: BP 100/58; BP 126/68
[2023-07-20 15:41] VITALS: BP 90/50; BMI 30.9
== END ==
PROVIDERS: PCP Internal Medicine; Visit Provider Internal Medicine Cardiovascular Disease
DX: I35.1 Nonrheumatic aortic (valve) insufficiency (principal); I34.81 Nonrheumatic mitral (valve) annulus calcification; I36.1 Nonrheumatic tricuspid (valve) insufficiency; I35.8 Other nonrheumatic aortic valve disorders
CPT/HCPCS: 93306

== ENCOUNTER 2024-01-11 09:05 | Outpatient (REF) | payer MEDICARE, SELFPAY ==
[2023-03-31 07:35] VITALS: BP 100/58; BP 126/68
[2023-07-20 15:41] VITALS: BP 90/50; BMI 30.9
[2024-01-11 12:27] LABS: Estimated Average Glucose 169 mg/dL; Hemoglobin A1c % 7.5 % (<6.0)
[2024-01-11 12:35] LABS: Cholesterol 118 mg/dL (<200); Glucose Fasting 135 mg/dL (60-99); HDL Cholesterol 37 mg/dL (>40); LDL Cholesterol Calculated 65 mg/dL (<100); Triglycerides 80 mg/dL (<150)
== END 2024-01-11 09:06 | disposition home or self-care (01) ==
LOC: HO.WFDLDS 09:05
PROVIDERS: Referring Provider Internal Medicine Cardiovascular Disease; Visit Provider Internal Medicine
DX: E78.5 Hyperlipidemia, unspecified (principal); R73.9 Hyperglycemia, unspecified
CPT/HCPCS: 36415; 80061; 82947; 83036

== ENCOUNTER 2024-01-21 07:59 | Outpatient (REF) | payer MEDICARE, SELFPAY ==
[2023-03-31 07:35] VITALS: BP 100/58; BP 126/68
[2023-07-20 15:41] VITALS: BP 90/50; BMI 30.9
[2024-01-21 08:17] LABS: MANUAL DIFF FLAG NO
[2024-01-21 08:22] LABS: Basophils Percent Auto 0.4 % (0-2); Eosinophils Absolute Auto 0.1 X10*3/uL (0.0-0.4); Eosinophils Percent Auto 0.9 % (0-4); Hematocrit 44.8 % (42.0-52.0); Hemoglobin 15.2 g/dl (14.0-18.0); Imm Gran Abs Auto 0.07 X10*3/uL (0.00-0.03); Imm Gran Pct Auto 0.7 % (0.0-0.4); Lymphocytes Absolute Auto 1.7 X10*3/uL (1.2-4.9); Lymphocytes Percent Auto 17.2 % (20-40); Mean Corpuscular HGB Conc 33.9 g/dl (31.0-36.0); Mean Corpuscular Volume 91.2 fL (80.0-98.0); Mean Platelet Volume 9.7 fL (9.4-12.4); Monocytes Absolute Auto 0.9 X10*3/uL (0.1-1.2); Monocytes Percent Auto 9.3 % (2-11); Neutrophils Percent Auto 71.5 % (45-73); Platelet Count 194 X10*3/uL (160-400); Red Blood Count 4.91 X10*6/uL (4.60-5.80); Red Cell Distribution Width 13.2 % (11.0-16.0); White Blood Count 9.8 X10*3/uL (4.8-10.8)
[2024-01-21 08:40] LABS: INTERNATIONAL NORM RATIO 0.9 (0.9-1.1); Prothrombin Time 11.4 SEC (11.1-13.3)
[2024-01-21 08:52] LABS: Anion Gap 15 (12-20); Blood Urea Nitrogen 21 mg/dL (9-16); Calcium 9.1 mg/dL (8.4-10.2); Carbon Dioxide 21 mmol/L (22-29); Chloride 106 mmol/L (96-108); Cholesterol 121 mg/dL (<200); Estimated Glomerular Filt Rate > 60; Glucose Fasting 128 mg/dL (60-99); Glucose Random 127 mg/dL (60-115); HDL Cholesterol 35 mg/dL (>40); LDL Cholesterol Calculated 68 mg/dL (<100); Sodium 138 mmol/L (135-145); Triglycerides 90 mg/dL (<150)
[2024-01-21 08:52] LABS: Cholesterol 121 mg/dL (<200); HDL Cholesterol 35 mg/dL (>40); LDL Cholesterol Calculated 68 mg/dL (<100); Triglycerides 91 mg/dL (<150)
== END 2024-01-21 08:00 | disposition home or self-care (01) ==
LOC: HO.LAB 07:59
PROVIDERS: Absent Provider Internal Medicine Cardiovascular Disease; PCP Internal Medicine; Visit Provider Internal Medicine
DX: I25.10 Atherosclerotic heart disease of native coronary artery without angina pectoris (principal); R73.9 Hyperglycemia, unspecified; E78.5 Hyperlipidemia, unspecified
CPT/HCPCS: 36415; 80048; 80061; 82947; 85025; 85610

== ENCOUNTER 2024-01-27 08:20 | Outpatient (AMB) | payer MEDICARE, SELFPAY ==
[2023-03-31 07:35] VITALS: BP 100/58; BP 126/68
[2023-07-20 15:41] VITALS: BP 90/50; BMI 30.9
--- NOTE | 2024-01-27 08:27 | A.OFFPC_ITS ---
Vital Signs 01/27/24 08:29 Height 5 ft 9 in Weight 201 lb BMI 29.7 BP 130/66 Blood Pressure Location Lt brachial Position Sitting Pulse 75 Pulse Source Pulse Oximeter Pulse Oximetry (%) 97 Oxygen Delivery Method Room Air Intake Visit Reasons: f/u Intake Note: Patient is here to follow up on HTN, DM, CAD. Archery Equipment Repairer Required: No Commercial Collections Specialist: Not Required per policy Accompanied by: Self / Same As Patient Allergies BERNABE Inhibitors [BERNABE INHIBITORS] Allergy (Intermediate, Verified 01/27/24 08:29) DEPRESSION latex [LATEX] Allergy (Intermediate, Verified 01/27/24 08:29) RASH terazosin Allergy (Intermediate, Verified 01/27/24 08:29) hives, swollen lips and hoarseness pravastatin [Pravachol] Allergy (Unknown, Verified 01/27/24 08:29) unknown bee pollen [bee stings] Adverse Reaction (Severe, Verified 01/27/24 08:29) Anaphylaxis Beta-Blockers (Beta-Adrenergic Bloc [BETA-BLOCKERS (BETA-ADRENERGIC BLOC] Adverse Reaction (Intermediate, Verified 01/27/24 08:29) DECREASED HR, DEPRESSION amoxicillin Allergy (Intermediate, Uncoded 01/27/24 08:29) hives, swollen lips, and hoarseness cephlex: levofloxacin Allergy (Intermediate, Uncoded 01/27/24 08:29) hives, swollen lips, and hoarseness clindomycin Allergy (Intermediate, Uncoded 01/27/24 08:29) hives, swollen lips, and hoarseness Tobacco use date assessed: 01/27/24 Fall risk assessment: No Falls in past year Last assessed Fall Risk: 01/27/24 Dental Screening Dental Screen Date: 11/02/23 HPI f/u HPI Details DM on rx; compliant COUNT INCLUDES THE [facility] Medical History Pacemaker (~2021) Bradycardia (~2021) History of COVID-19 BPH (benign prostatic hyperplasia) Hypertension Obesity Hyperlipidemia associated with type 2 diabetes mellitus Tubular adenoma of colon COVID-19 vaccine administered Diabetes mellitus History of colon cancer (~2010) Cardiomyopathy PVC (premature ventricular contraction) SVT (supraventricular tachycardia) CAD (coronary artery disease) Surgical History History of pacemaker (~2021) History of coronary artery bypass graft x 3 (~1998) History of hernia repair (~2012) History of colonoscopy History of left knee surgery (~2003) History of right knee surgery History of colostomy (~2010) History of partial colectomy (~2011) History of tonsillectomy History of repair of rotator cuff History of cataract surgery (~2013) History of cardiac cath History of colostomy reversal (~2011) Family History Father Cancer, colon Mother Cancer of breast Cancer of lung Sister Cancer Social History Household Members: Spouse Housing: House Are you a primary home care music therapist to a significant other at home: No Do you presently have visiting nurse or other home services: No Alcohol intake: current Alcohol intake frequency: 0-2 drinks per day Comment: previously medicated with po tylenol Patient Tobacco Use Status: Never used Tobacco e-Cigarette/Vaping Use: Never Used Second Hand Smoke Exposure: No service: No Current occupational status: retired Cognitive needs: No Hearing needs: No Vision needs: Yes (glasses) Questionnaire Thrive Questionnaire Date Thrive assessed: 11/02/23 JOE-7 AMB Questionnaire JOE-7 Date JOE - 7 assessed: 11/02/23 Source: Developed by Drs. Ivan Humphrey, Rachel Sigala, Bradley Rojas and colleagues, with an educational henry from [employer]. Review of Systems Const Denies chills, Denies headache(s) and Denies weight loss ENT Denies headache(s) Card Denies chest pain, Denies syncope, Denies irregular heart rhythm and Denies dyspnea Resp Denies chest congestion, Denies cough and Denies dyspnea GI Denies abdominal pain, Denies change in stool character, Denies nausea and Denies vomiting Musc Denies deformity and Denies joint swelling Neuro Denies syncope and Denies headache(s) Physical exam (Primary Care) Vital Signs: Last Vital Signs Pulse 75 01/27/24 08:29 BP 130/66 01/27/24 08:29 Pulse Ox 97 01/27/24 08:29 Oxygen Delivery Method Room Air 01/27/24 08:29 BMI result Body Mass Index 29.7 Tobacco/Smoking Status: Tobacco use Status Tobacco use date assessed 01/27/24 01/27/24 08:33 Patient Tobacco Use Status Never used Tobacco 01/27/24 08:33 e-Cigarette/Vaping Use Never Used 01/27/24 08:33 Thrive Assessment: Date of Thrive Assessment Date Thrive assessed 11/02/23 01/27/24 08:33 Const General: cooperative, comfortable, no acute distress and alert Neck Neck: Yes no lymphadenopathy Thyroid: Thyroid normal Resp Effort & Inspection: normal respiratory effort Auscultation: clear to auscultation bilaterally Percussion: percussion normal Cardio Jugular venous distension: no JVD Palpation: normal PMI Rate: regular rate Rhythm: regular rhythm Heart sounds: S1 normal heart sound present and S2 normal heart sound present GI Inspection: Yes normal to inspection Palpation (GI): No hepatosplenomegaly present Skin General skin exam: no rashes or lesions noted Extrem General: Yes no clubbing, cyanosis or edema Assessment and Plan Assessment & Plan (1) Diabetes mellitus with coincident hypertension: Code(s): E11.9 - Type 2 diabetes mellitus without complications; I10 - Essential (primary) hypertension Plan: stable; do labs Orders: Orders Complete Blood Count Auto Diff Today Z13.0 - Encounter for screening for diseases of the blood and blood-forming organs and certain disorders involving the immune mechanism Comprehensive [place]. Panel Fast Today Z13.9 - Encounter for screening, unspecified Hemoglobin A1c Today R73.9 - Hyperglycemia, unspecified Lipid Panel Today Z13.220 - Encounter for screening for lipoid disorders Microalbumin, Random (w Creat) Today E11.69 - Type 2 diabetes mellitus with other specified complication, E66.01 - Morbid (severe) obesity due to excess calories Coding Level of Care Code Est Pt Level 3 (18346) Diagnoses Diabetes mellitus with coincident hypertension E11.9; I10
[2024-01-27 08:29] VITALS: BP 130/66; PULSE 75; O2SAT 97; BMI 29.7
== END 2024-01-27 08:47 | disposition home or self-care (01) ==
PROVIDERS: PCP Internal Medicine; Visit Provider Internal Medicine
DX: E11.9 Type 2 diabetes mellitus without complications (principal); I10 Essential (primary) hypertension
CPT/HCPCS: 99213

== ENCOUNTER → 2024-02-02 23:59 | Outpatient (BNV) | payer MEDICARE, SELFPAY ==
[2023-03-31 07:35] VITALS: BP 100/58; BP 126/68
[2023-07-20 15:41] VITALS: BP 90/50; BMI 30.9
== END ==
PROVIDERS: PCP Internal Medicine; Visit Provider Internal Medicine Cardiovascular Disease
DX: I20.89 Other forms of angina pectoris (principal); I50.20 Unspecified systolic (congestive) heart failure
CPT/HCPCS: 93461; 99152

== ENCOUNTER 2024-02-20 13:50 | Outpatient (AMB) | payer MEDICARE, SELFPAY ==
[2023-03-31 07:35] VITALS: BP 100/58; BP 126/68
[2023-07-20 15:41] VITALS: BP 90/50; BMI 30.9
[2024-02-20 14:08] VITALS: BP 90/52; PULSE 72
--- NOTE | 2024-02-20 14:08 | A.OFFVIS_ITS ---
Vital Signs 02/20/24 14:08 Height 5 ft 9 in Weight 203 lb 4.259 oz BMI 30.0 BP 90/52 L Blood Pressure Location Lt brachial Position Sitting Pulse 72 Pulse Source Pulse Oximeter Intake Visit Reasons: 2 wk s/p cath NS Bus Info Consultant Required: No Allergies BERNABE Inhibitors [BERNABE INHIBITORS] Allergy (Intermediate, Verified 02/20/24 14:10) DEPRESSION latex [LATEX] Allergy (Intermediate, Verified 02/20/24 14:10) RASH terazosin Allergy (Intermediate, Verified 02/20/24 14:10) hives, swollen lips and hoarseness pravastatin [Pravachol] Allergy (Unknown, Verified 02/20/24 14:10) unknown bee pollen [bee stings] Adverse Reaction (Severe, Verified 02/20/24 14:10) Anaphylaxis Beta-Blockers (Beta-Adrenergic Bloc [BETA-BLOCKERS (BETA-ADRENERGIC BLOC] Adverse Reaction (Intermediate, Verified 02/20/24 14:10) DECREASED HR, DEPRESSION amoxicillin Allergy (Intermediate, Uncoded 02/20/24 14:10) hives, swollen lips, and hoarseness cephlex: levofloxacin Allergy (Intermediate, Uncoded 02/20/24 14:10) hives, swollen lips, and hoarseness clindomycin Allergy (Intermediate, Uncoded 02/20/24 14:10) hives, swollen lips, and hoarseness Medication List - Last Reconciled 02/20/24 by JOSE RAUL PryorC aspirin (Adult Low Dose Aspirin) 81 mg PO DAILY bisoprolol fumarate 2.5 mg PO DAILY blood sugar diagnostic (giddyuch Verio test strips) 1 Strip Once a Day blood-glucose meter (giddyuch Verio Meter) to check blood sugars once a day diphenhydramine HCl (Benadryl Allergy) 25 mg PO TID PRN ezetimibe (Zetia) 10 mg PO DAILY finasteride 5 mg PO DAILY fluticasone propionate 50 mcg/actuation (Flonase Allergy Relief) 1 spray intranasal DAILY lancets ([employer] Delica Lancets) to check blood sugars once a day metformin ER 500 mg PO BID nitroglycerin 0.4 mg sublingual Q5M PRN ranolazine ER 500 mg PO BID rosuvastatin 40 mg PO DAILY HPI HPI 2 wk s/p cath NS: Details: Kartik is a 79-year-old male with past medical history of hypertension, hyperlipidemia, diabetes, CAD, coronary artery bypass grafting 1998, ischemic cardiomyopathy, pacemaker, supraventricular tachycardia, whoreported shortness of breath with activity on last visit and underwent cardiac catheterization to re-evaluate coronary arteries. Today he reports that he continues to have this symptom of shortness of breath with physical activity. Describes that he went to his garden to pick vegetables in found himself short of breath. He also notices the symptom when he bends over. No PND, orthopnea or edema. No chest discomfort at rest or with activity. No lightheadedness, presyncope, syncope, falls. He describes having an episode of rapid heart palpitations over a month ago, none since then. Taking meds as directed. Right radial catheterization site feels good. present. [facility] Medical History (Updated 02/20/24 @ 16:33 by Magnolia Cruz, [id number]) Pacemaker (~2021) Bradycardia (~2021) History of COVID-19 BPH (benign prostatic hyperplasia) Hypertension Obesity Hyperlipidemia associated with type 2 diabetes mellitus Tubular adenoma of colon COVID-19 vaccine administered Diabetes mellitus History of colon cancer (~2010) Cardiomyopathy PVC (premature ventricular contraction) SVT (supraventricular tachycardia) CAD (coronary artery disease) Surgical History (Updated 02/20/24 @ 18:07 by Magnolia Cruz NP-C) History of pacemaker (~2021) History of coronary artery bypass graft x 3 (~1998) History of hernia repair (~2012) History of colonoscopy History of left knee surgery (~2003) History of right knee surgery History of colostomy (~2010) History of partial colectomy (~2011) History of tonsillectomy History of repair of rotator cuff History of cataract surgery (~2013) History of cardiac cath History of colostomy reversal (~2011) Family History Father Cancer, colon Mother Cancer of breast Cancer of lung Sister Cancer Social History Household Members: Spouse Housing: House Are you a primary director of managed care to a significant other at home: No Do you presently have visiting nurse or other home services: No Alcohol intake: current Alcohol intake frequency: 0-2 drinks per day Comment: previously medicated with po tylenol Patient Tobacco Use Status: Never used Tobacco e-Cigarette/Vaping Use: Never Used Second Hand Smoke Exposure: No service: No Current occupational status: retired Cognitive needs: No Hearing needs: No Vision needs: Yes (glasses) Review of Systems Const All systems reviewed & are unremarkable except as noted in HPI and below ENT Denies dizziness Card Denies chest pain, Denies chest pain at rest, Denies chest pain with activity, Denies rapid heart rate, Denies pedal edema, Denies edema, Denies leg edema, Denies lightheadedness, Denies palpitations, Reports dyspnea, Reports dyspnea on exertion and Denies orthopnea Resp Denies cough, Reports dyspnea and Reports dyspnea on exertion GI Denies hematochezia and Denies change in stool character Musc Denies abnormal gait, Denies limited range of motion, Denies muscle cramps, Denies muscle weakness, Denies numbness, Denies radiating pain into limb, Denies stiffness and Denies tingling Neuro Denies abnormal gait, Denies dizziness, Denies numbness and Denies tingling Endo Denies palpitations Physical Exam Vital Signs: Last Vital Signs Pulse 72 02/20/24 14:08 BP 90/52 L 02/20/24 14:08 BMI result Body Mass Index 30.0 Const General: cooperative, healthy appearing, comfortable and no acute distress Orientation/consciousness: patient oriented x3 Neck Neck: Yes normal visual inspection and Yes no JVD Resp Effort & Inspection: normal respiratory effort Auscultation: clear to auscultation bilaterally, no crackles, no rales, no rhonchi and no wheezes Cardio Jugular venous distension: no JVD Rate: regular rate Rhythm: regular rhythm Heart sounds: S1 normal heart sound present, S2 normal heart sound present, no murmurs and no rubs Neuro General: patient oriented x3 Extrem General: Yes normal to inspection, No no pedal edema and No calf tenderness Psych Appearance: grossly normal Mental Status: mental status grossly normal Speech and movement: Normal speech and movement present Assessment & Plan Assessment & Plan (1) SOB (shortness of breath) on exertion: Code(s): R06.02 - Shortness of breath Category: Medical Plan: Reports of shortness of breath with exertional activity. Tells me this symp ezekiel is newer in the last year. BNP done 01/06/2024 was 59. Labs show no anemia, normal TSH. last echocardiogram done 01/10/2024 showed EF 35-40%, grade 1 diastolic dysfunction, regional wall motion abnormality consistent with ischemic cardiomyopathy, mild aortic regurgitation, normal RV systolic pressure. Prior EF 12/15/2022 was 46%. He then underwent a right and left heart cardiac catheterization showing no significant change in anatomy, patent grafts, normal systemic pressures. Test results reviewed with him in detail. Will check with Dr. Blackwood and Dr Espinoza regarding further if any cardiac testing. Patient does not have evidence of decompensated heart failure. No clear cardiac indication for his symptom of shortness of breath. He may need referral to pulmonology. Plan to call him with plan of care. He states he has had no improvement with the use of Ranexa and has cause constipation. At this time will have him stop Ranexa. (2) S/P cardiac cath: Comment: 02/02/2024 left main 95% distal stenosis, lad 100% proximal stenosis, left circumflex ostial 99% stenosis, RCA mid 100% stenosis.- Mid RCA MOLD INSERT CHANGER with patent GOYO to RCA, ostial circumflex 99% with collaterals coming from the RCA to circumflex, occluded proximal LAD with patent FIELDS to LAD, filling pressures at rest are normal. Code(s): Z98.890 - Other specified postprocedural states Category: Medical Plan: As above (3) CAD (coronary artery disease): Comment: (Hx CABG x 3 - FIELDS to LAD, radial graft to Ramus, free GOYO to RCA - 1998) Code(s): I25.10 - Atherosclerotic heart disease of [place] coronary artery without angina pectoris Category: Medical Plan: as above (4) SVT (supraventricular tachycardia): Code(s): I47.1 - Supraventricular tachycardia Category: Medical Plan: Episodes of SVT seen on pacemaker monitoring. Patient also reports having some heart palpitations that do not register as SVT. He has not had any concerning symptoms in the last month. He is taking his low-dose bisoprolol as directed. Unable to further titrate dose due to low blood pressure readings. Reviewed reduction in stimulatant, vagal maneuvers. Emergency care if ever needed for sustained rapid palpitations. (5) Hypertension: Code(s): I10 - Essential (primary) hypertension Category: Medical Plan: History of hypertension. Currently on low-dose bisoprolol. Blood pressure has been running on the low side. Blood pressure initially 90/52 when checked by the MA, recheck done by me clearly heard at 112/60. Reviewed need for good hydration, use caution when going from sitting to standing. Ranexa will be stopped but should not affect blood pressure. (6) Hyperlipidemia associated with type 2 diabetes mellitus: Code(s): E11.69 - Type 2 diabetes mellitus with other specified complication; E78.5 - Hyperlipidemia, unspecified Category: Medical Plan: ideal LDL goal Less than 70. Labs done 01/21/2024 showed LDL 68. continue rosuvastatin 40 mg daily and Zetia 10 mg daily. (7) Cardiomyopathy: Code(s): I42.9 - Cardiomyopathy, unspecified Category: Medical Plan: Ischemic cardiomyopathy as above. Patient is on bisoprolol. Intolerant to BERNABE inhibitors. Blood pressure runs low unable to add additional agents at this time. (8) Pacemaker: Onset Date: ~2021 Comment: ([employer] DCPP - placed 06/18/22) Code(s): Z95.0 - Presence of cardiac pacemaker Category: Medical Plan: [employer] dual-chamber pacemaker in place. Interrogation done in the office on 12/28/2023 showed device is functioning normally. Remote monitoring in use. Next office interrogation due in 5 months. Plan time spent on chart review, documentation, interview and assessment Medications: New bisoprolol fumarate 2.5 mg (1/2 x 5 mg) PO DAILY 45 tabs 3RF Coding Level of Care Code Est Pt Level 4 (73306) Diagnoses SOB (shortness of breath) on exertion R06.02 S/P cardiac cath Z98.890 CAD (coronary artery disease) I25.10 SVT (supraventricular tachycardia) I47.1 Hypertension I10 Hyperlipidemia associated with type 2 diabetes mellitus E11.69; E78.5 Cardiomyopathy I42.9 Pacemaker Z95.0 Time Spent (min) 36
== END 2024-02-20 15:03 | disposition home or self-care (01) ==
PROVIDERS: PCP Internal Medicine; Visit Provider Nurse Practitioner Family
DX: R06.02 Shortness of breath (principal); Z98.890 Other specified postprocedural states; I25.10 Atherosclerotic heart disease of native coronary artery without angina pectoris; I47.10 Supraventricular tachycardia, unspecified; I10 Essential (primary) hypertension; E11.69 Type 2 diabetes mellitus with other specified complication; E78.5 Hyperlipidemia, unspecified; I42.9 Cardiomyopathy, unspecified; Z95.0 Presence of cardiac pacemaker
CPT/HCPCS: 99214

== ENCOUNTER → 2024-02-20 13:50 | Outpatient (BNVA) | payer MEDICARE, SELFPAY ==
[2023-03-31 07:35] VITALS: BP 100/58; BP 126/68
[2023-07-20 15:41] VITALS: BP 90/50; BMI 30.9
== END ==
PROVIDERS: PCP Internal Medicine; Visit Provider Nurse Practitioner Family
DX: R06.02 Shortness of breath (principal); I25.10 Atherosclerotic heart disease of native coronary artery without angina pectoris; I47.10 Supraventricular tachycardia, unspecified; I10 Essential (primary) hypertension; E11.69 Type 2 diabetes mellitus with other specified complication; E78.5 Hyperlipidemia, unspecified; I42.9 Cardiomyopathy, unspecified; Z95.0 Presence of cardiac pacemaker; Z98.890 Other specified postprocedural states
CPT/HCPCS: 99212

== ENCOUNTER 2024-03-13 09:02 | Outpatient (AMB) | payer MEDICARE, SELFPAY ==
[2023-03-31 07:35] VITALS: BP 100/58; BP 126/68
[2023-07-20 15:41] VITALS: BP 90/50; BMI 30.9
--- NOTE | 2024-03-13 09:09 | A.OFFVIS_ITS ---
Vital Signs 03/13/24 09:10 Height 5 ft 8 in Weight 201 lb 8 oz BMI 30.6 BP 118/64 Blood Pressure Location Lt brachial Position Sitting Pulse 52 Pulse Source Pulse Oximeter Pulse Oximetry (%) 98 Oxygen Delivery Method Room Air Intake Visit Reasons: Shortness of breath Allergies BERNABE Inhibitors [BERNABE INHIBITORS] Allergy (Intermediate, Verified 03/13/24 09:15) DEPRESSION latex [LATEX] Allergy (Intermediate, Verified 03/13/24 09:15) RASH terazosin Allergy (Intermediate, Verified 03/13/24 09:15) hives, swollen lips and hoarseness pravastatin [Pravachol] Allergy (Unknown, Verified 03/13/24 09:15) unknown bee pollen [bee stings] Adverse Reaction (Severe, Verified 03/13/24 09:15) Anaphylaxis Beta-Blockers (Beta-Adrenergic Bloc [BETA-BLOCKERS (BETA-ADRENERGIC BLOC] Adverse Reaction (Intermediate, Verified 03/13/24 09:15) DECREASED HR, DEPRESSION amoxicillin Allergy (Intermediate, Uncoded 03/13/24 09:15) hives, swollen lips, and hoarseness cephlex: levofloxacin Allergy (Intermediate, Uncoded 03/13/24 09:15) hives, swollen lips, and hoarseness clindomycin Allergy (Intermediate, Uncoded 03/13/24 09:15) hives, swollen lips, and hoarseness HPI HPI Shortness of breath: Details: Kartik is a pleasant 79 year old male, never smoker, with underlying h/o adenocarcinoma of colon 2010, hypertension, hyperlipidemia, diabetes, CAD, coronary artery bypass grafting 1998, ischemic cardiomyopathy, pacemaker, and supraventricular tachycardia. He was referred by cardiology for pulmonary evalu ation. He reports dyspnea on exertion including heavy lifting. He denies dyspnea at rest, orthopnea, BLE edema or PND. He denies any wheezing or chest tightness. He has undergone recent cardiac evaluation for dyspnea including echo which revealed LVEF 35-40%, mild aortic regurgitation, RVSP 34 and moderate to severe decrease in RVSP function. He then underwent cardiac cath on 02/02/24 which revealed PA mean 21 and wedge pressure 12 mmHg, not suggestive of pulmonary hypertension. Per cath recommendation infiltrative cardiac conditions should be rule out and cardiology will be sending for nuclear PYP scan to evaluate for amyloidosis. Prior CXR 10/2022 unremarkable. Denies prior chest CT or PFT. He denies h/o asthma. He does endorse bronchitis frequently as a child. He reports seasonal allergies, however mild. He denies any occupational exposures. He reports mother, smoker, with h/o lung cancer. [facility] Medical History (Updated 03/13/24 @ 13:32 by Cora Sommers NP) Pacemaker (~2021) Bradycardia (~2021) History of COVID-19 BPH (benign prostatic hyperplasia) Hypertension Obesity Hyperlipidemia associated with type 2 diabetes mellitus Tubular adenoma of colon COVID-19 vaccine administered Diabetes mellitus History of colon cancer (~2010) Cardiomyopathy PVC (premature ventricular contraction) SVT (supraventricular tachycardia) CAD (coronary artery disease) Surgical History (Updated 02/20/24 @ 18:07 by Magnolia Cruz NP-C) History of pacemaker (~2021) History of coronary artery bypass graft x 3 (~1998) History of hernia repair (~2012) History of colonoscopy History of left knee surgery (~2003) History of right knee surgery History of colostomy (~2010) History of partial colectomy (~2011) History of tonsillectomy History of repair of rotator cuff History of cataract surgery (~2013) History of cardiac cath History of colostomy reversal (~2011) Family History Father Cancer, colon Mother Cancer of breast Cancer of lung Sister Cancer Social History Household Members: Spouse Housing: House Are you a primary emergency care attendant to a significant other at home: No Do you presently have visiting nurse or other home services: No Alcohol intake: current Alcohol intake frequency: 0-2 drinks per day Comment: previously medicated with po tylenol Patient Tobacco Use Status: Never used Tobacco e-Cigarette/Vaping Use: Never Used Second Hand Smoke Exposure: No service: No Current occupational status: retired Cognitive needs: No Hearing needs: No Vision needs: Yes (glasses) Review of Systems Const Denies chills, Denies excessive sweating, Denies fever(s), Denies headache(s) and Denies night sweats Eyes Denies dry eyes, Denies irritation and Denies itchy eyes ENT Reports Normal hearing present, Denies headache(s), Denies nasal congestion, Denies nasal discharge, Denies post nasal drip and Denies sore throat Card Denies chest pain, Denies chest pain at rest, Denies chest pain with activity, Denies claudication, Denies leg edema, Denies orthopnea and Denies paroxysmal nocturnal dyspnea Resp Denies chest congestion, Denies cough, Denies excessive phlegm production, Denies pain on inspiration, Denies pain with cough, Denies stridor and Denies wheezing Musc Denies myalgias Neuro Reports Normal hearing present and Denies headache(s) Endo Denies excessive sweating Cornel/Lymph Denies lymphadenopathy Aller/Immun Denies itchy eyes, Denies seasonal rhinorrhea and Denies wheezing Physical Exam Vital Signs: Last Vital Signs Pulse 52 03/13/24 09:10 BP 118/64 03/13/24 09:10 Pulse Ox 98 03/13/24 09:10 Oxygen Delivery Method Room Air 03/13/24 09:10 BMI result Body Mass Index 30.6 Const General: cooperative, healthy appearing, comfortable, no acute distress, well developed and alert Nutritional Appearance: obese Orientation/consciousness: patient oriented x3 Limitations: no limitations HEENT Head: Yes normal to inspection, Yes normocephalic and Yes atraumatic Ears: hearing grossly normal bilaterally and external ears normal Eyes General: appearance normal, both eyes and all related structures Eyelids: Yes eyelids normal Sclerae: sclerae normal EOM: EOMs intact bilaterally Neck Neck: Yes normal visual inspection and Yes no lymphadenopathy Lymphatic: no lymphadenopathy noted Chest Chest palpation & inspection: normal inspection of the chest Resp Effort & Inspection: normal respiratory effort, able to speak in complete sentences, no audible wheezes, no cough, no stridor, not tachypneic, no tripod positioning and no use of accessory muscles Auscultation: clear to auscultation bilaterally Cardio Jugular venous distension: no JVD Rate: regular rate Rhythm: regular rhythm Skin Other: warm, dry General skin exam: no rashes or lesions noted Neuro General: patient oriented x3 Cranial nerves: Yes Normal hearing present Cognition (Neuro): normal cognition Gait exam (Neuro): Normal gait present Extrem General: Yes normal to inspection, Yes capillary refill normal, Yes no clubbing, cyanosis or edema and Yes no pedal edema Psych Appearance: grossly normal and well kempt Speech and movement: Normal speech and movement present and Clear speech present Affect: normal affect Attitude: cooperative Thought process: Normal thought process present Thought content: Normal thought content present Insight: Good insight present (Psych) Judgement: Good judgement present (Psych) Assessment & Plan Assessment & Plan (1) Dyspnea: Code(s): R06.00 - Dyspnea, unspecified Category: Medical (2) Cardiomyopathy: Code(s): I42.9 - Cardiomyopathy, unspecified Category: Medical Plan Kartik presents for pulmonary evaluation for ongoing dyspnea on exertion. He is in the process of cardiac evaluation and will be sent for nuclear PYP scan to assess for amyloidosis. Will send for PFT and CXR, with likely chest CT to assess for pulmonary contribution. All questions were answered and patient is in agreement of plan. Will follow up to review results or sooner if needed. Orders: Orders PFT pulmonary function test Today XR chest 2V Today R05.9 - Cough, unspecified Coding Level of Care Code New Pt Level 4 (04057) Diagnoses Dyspnea R06.00 Cardiomyopathy I42.9
[2024-03-13 09:10] VITALS: BP 118/64; PULSE 52; O2SAT 98; BMI 30.6
== END 2024-03-13 10:06 | disposition home or self-care (01) ==
PROVIDERS: PCP Internal Medicine; Referring Provider Nurse Practitioner Family; Visit Provider Nurse Practitioner Family
DX: R06.00 Dyspnea, unspecified (principal); I42.9 Cardiomyopathy, unspecified
CPT/HCPCS: 99204; 99214

== ENCOUNTER → 2024-03-13 09:02 | Outpatient (BNVA) | payer MEDICARE, SELFPAY ==
[2023-03-31 07:35] VITALS: BP 100/58; BP 126/68
[2023-07-20 15:41] VITALS: BP 90/50; BMI 30.9
== END ==
PROVIDERS: PCP Internal Medicine; Referring Provider Nurse Practitioner Family; Visit Provider Nurse Practitioner Family
DX: R06.00 Dyspnea, unspecified (principal); I42.9 Cardiomyopathy, unspecified
CPT/HCPCS: 99202

== ENCOUNTER 2024-03-14 10:00 | Outpatient (RCR) | payer MEDICARE, SELFPAY ==
[2023-03-31 07:35] VITALS: BP 100/58; BP 126/68
[2023-07-20 15:41] VITALS: BP 90/50; BMI 30.9
== END 2024-03-29 15:42 | disposition home or self-care (01) ==
LOC: HO.CR 10:00
PROVIDERS: PCP Internal Medicine; Visit Provider Internal Medicine Cardiovascular Disease
DX: I20.89 Other forms of angina pectoris (principal)
CPT/HCPCS: 93798

== ENCOUNTER 2024-03-21 10:38 | Outpatient (REF) | payer MEDICARE, SELFPAY ==
[2023-03-31 07:35] VITALS: BP 100/58; BP 126/68
[2023-07-20 15:41] VITALS: BP 90/50; BMI 30.9
--- NOTE | ~2024-03-21 | XR_ITS ---
EXAMINATION: XR CHEST 2 VIEWS CLINICAL INFORMATION: Cough and shortness of breath. COMPARISON: Prior chest radiographs, most recently 03/01/2023. TECHNIQUE: Frontal and lateral views of the chest were obtained. FINDINGS: The heart, great vessels, pulmonary vasculature and mediastinum are normal. There has been a prior CABG procedure. A dual-lead, dual-chamber pacemaker device is seen, without any fracture noted. The lungs show no focal infiltrate, effusion or pneumothorax. There is no acute osseous abnormality. Orthopedic anchors are applied to the bilateral humeral heads. XR/XR chest 2V IMPRESSION: No active cardiopulmonary disease. Electronically signed by: Joseph Calvin MD 04/18/2024 11:28 AM EDT
== END 2024-03-21 10:39 | disposition home or self-care (01) ==
LOC: HO.XRAY 10:38
PROVIDERS: PCP Internal Medicine; Visit Provider Nurse Practitioner Family
DX: R05.9 Cough, unspecified (principal)
CPT/HCPCS: 71046

== ENCOUNTER → 2024-04-03 23:59 | Outpatient (BNV) | payer MEDICARE, SELFPAY ==
[2023-03-31 07:35] VITALS: BP 100/58; BP 126/68
[2023-07-20 15:41] VITALS: BP 90/50; BMI 30.9
--- NOTE | 2024-04-04 15:17 | MHC.OFFVIS ---
Intake Visit Reasons: Remote device check- [facility] Allergies BERNABE Inhibitors [BERNABE INHIBITORS] Allergy (Intermediate, Verified 03/13/24 09:15) DEPRESSION latex [LATEX] Allergy (Intermediate, Verified 03/13/24 09:15) RASH terazosin Allergy (Intermediate, Verified 03/13/24 09:15) hives, swollen lips and hoarseness pravastatin [Pravachol] Allergy (Unknown, Verified 03/13/24 09:15) unknown bee pollen [bee stings] Adverse Reaction (Severe, Verified 03/13/24 09:15) Anaphylaxis Beta-Blockers (Beta-Adrenergic Bloc [BETA-BLOCKERS (BETA-ADRENERGIC BLOC] Adverse Reaction (Intermediate, Verified 03/13/24 09:15) DECREASED HR, DEPRESSION amoxicillin Allergy (Intermediate, Uncoded 03/13/24 09:15) hives, swollen lips, and hoarseness cephlex: levofloxacin Allergy (Intermediate, Uncoded 03/13/24 09:15) hives, swollen lips, and hoarseness clindomycin Allergy (Intermediate, Uncoded 03/13/24 09:15) hives, swollen lips, and hoarseness [facility] Medical History (Updated 03/13/24 @ 13:32 by Cora Sommers NP) Pacemaker (~2021) Bradycardia (~2021) History of COVID-19 BPH (benign prostatic hyperplasia) Hypertension Obesity Hyperlipidemia associated with type 2 diabetes mellitus Tubular adenoma of colon COVID-19 vaccine administered Diabetes mellitus History of colon cancer (~2010) Cardiomyopathy PVC (premature ventricular contraction) SVT (supraventricular tachycardia) CAD (coronary artery disease) Surgical History (Updated 02/20/24 @ 18:07 by Magonlia Cruz NP-C) History of pacemaker (~2021) History of coronary artery bypass graft x 3 (~1998) History of hernia repair (~2012) History of colonoscopy History of left knee surgery (~2003) History of right knee surgery History of colostomy (~2010) History of partial colectomy (~2011) History of tonsillectomy History of repair of rotator cuff History of cataract surgery (~2013) History of cardiac cath History of colostomy reversal (~2011) Family History Father Cancer, colon Mother Cancer of breast Cancer of lung Sister Cancer Social History Household Members: Spouse Housing: House Are you a primary healthcare interpreter to a significant other at home: No Do you presently have visiting nurse or other home services: No Alcohol intake: current Alcohol intake frequency: 0-2 drinks per day Comment: previously medicated with po tylenol Patient Tobacco Use Status: Never used Tobacco e-Cigarette/Vaping Use: Never Used Second Hand Smoke Exposure: No service: No Current occupational status: retired Cognitive needs: No Hearing needs: No Vision needs: Yes (glasses) Office Procedures Cardiac Device Check Cardiac Device Check Details: Remote pacemaker report generated 04/03/2024. Pacemaker function is adequate [id number] Cardiac Device Interrogation, pacemaker Procedure code (CPT) selection complete Assessment & Plan Assessment & Plan (1) Pacemaker: Onset Date: ~2021 Comment: ([facility] DCPP - placed 06/18/22) Code(s): Z95.0 - Presence of cardiac pacemaker Category: Medical Plan: See above Coding Level of Care Code Procedure Only Diagnoses Pacemaker Z95.0 CPT Codes Cardiac Device Check - Cardiac Device 12: [id number] Cardiac Device Interrogation, pacemaker ([id number])
== END ==
PROVIDERS: PCP Internal Medicine; Visit Provider Internal Medicine Cardiovascular Disease
DX: Z45.018 Encounter for adjustment and management of other part of cardiac pacemaker (principal)
CPT/HCPCS: 93294

== ENCOUNTER → 2024-04-11 10:29 | Outpatient (REF) | payer MEDICARE, SELFPAY ==
[2023-03-31 07:35] VITALS: BP 100/58; BP 126/68
[2023-07-20 15:41] VITALS: BP 90/50; BMI 30.9
--- NOTE | ~2024-04-11 | NM_ITS ---
TC-PYP Cardiac Study INDICATION: Evaluation of cardiac amyloidosis CLINICAL HISTORY: Patient with heart failure syndrome. Diminishing LV ejection fraction and atrial fibrillation to evaluate for infiltrative heart disease TECHNIQUE: Patient was injected with 35 mCi of technetium 99m pyrophosphate intravenously. Plan images of chest were obtained in the anterior and lateral views at 3 hour. SPECT-CT images of the chest were also obtained graft comparison: COMPARISON: None FINDINGS: 1. Image quality was adequate 2. Semiquantitative levoscoliosis of the cardiac uptake is-year-old suggestive of necrotic uptake. 3. H-CL ratio is 0.9 4. Findings show intense calcification the coronary arteries as well as calcifications noted in the arch of the aorta NM/NM PYP Card Amyld SPECT w CT IMPRESSION: There is no evidence of uptake in myocardial suggestive of absence of ATTR type of cardiac amyloidosis. The study is suboptimal to rule out AL type of cardiac amyloidosis and consider appropriate studies. Electronically signed by: Marquise Espinoza MD 04/25/2024 03:30 PM EDT
== END ==
LOC: HO.NUCMED 10:29
PROVIDERS: PCP Internal Medicine; Visit Provider Nurse Practitioner Family
DX: I42.9 Cardiomyopathy, unspecified (principal)
CPT/HCPCS: 78830; A9538

== ENCOUNTER 2024-04-24 09:58 | Outpatient (AMB) | payer MEDICARE, SELFPAY ==
[2023-03-31 07:35] VITALS: BP 100/58; BP 126/68
[2023-07-20 15:41] VITALS: BP 90/50; BMI 30.9
--- NOTE | 2024-04-24 10:00 | A.OFFVIS_ITS ---
Vital Signs 04/24/24 10:02 Height 5 ft 9 in Weight 202 lb 2 oz BMI 29.8 BP 104/68 Blood Pressure Location Rt brachial Position Sitting Pulse 61 Pulse Source Pulse Oximeter Pulse Oximetry (%) 97 Oxygen Delivery Method Room Air Intake Visit Reasons: Shortness of breath Allergies BERNABE Inhibitors [BERNABE INHIBITORS] Allergy (Intermediate, Verified 04/24/24 10:05) DEPRESSION latex [LATEX] Allergy (Intermediate, Verified 04/24/24 10:05) RASH terazosin Allergy (Intermediate, Verified 04/24/24 10:05) hives, swollen lips and hoarseness pravastatin [Pravachol] Allergy (Unknown, Verified 04/24/24 10:05) unknown bee pollen [bee stings] Adverse Reaction (Severe, Verified 04/24/24 10:05) Anaphylaxis Beta-Blockers (Beta-Adrenergic Bloc [BETA-BLOCKERS (BETA-ADRENERGIC BLOC] Adverse Reaction (Intermediate, Verified 04/24/24 10:05) DECREASED HR, DEPRESSION amoxicillin Allergy (Intermediate, Uncoded 04/24/24 10:05) hives, swollen lips, and hoarseness cephlex: levofloxacin Allergy (Intermediate, Uncoded 04/24/24 10:05) hives, swollen lips, and hoarseness clindomycin Allergy (Intermediate, Uncoded 04/24/24 10:05) hives, swollen lips, and hoarseness HPI HPI Shortness of breath: Details: Kartik is a pleasant 79 year old male, never smoker, with underlying h/o adenocarcinoma of colon 2010, hypertension, hyperlipidemia, diabetes, CAD, coronary artery bypass grafting 1998, ischemic cardiomyopathy, pacemaker, and supraventricular tachycardia. He continues to report dyspnea on exertion includ ing heavy lifting. He denies dyspnea at rest, orthopnea, BLE edema or PND. He denies any cough, wheezing or chest tightness. He had trialed albuterol in the past with no effect. He is currently undergoing cardiac evaluation, prior LVEF 35-40%, mild aortic regurgitation, RVSP 34 and moderate to severe decrease in RVSP function. Cardiac cath on 02/02/24 revealed PA mean 21 and wedge pressure 12 mmHg, not suggestive of pulmonary hypertension. Awaiting results of nuclear PYP scan to evaluate for amyloidosis. Prior CXR 10/2022 unremarkable. Today presents to review PFT results. [facility] Medical History (Updated 04/24/24 @ 13:51 by Cora Sommers NP) Pacemaker (~2021) Bradycardia (~2021) History of COVID-19 BPH (benign prostatic hyperplasia) Hypertension Obesity Hyperlipidemia associated with type 2 diabetes mellitus Tubular adenoma of colon COVID-19 vaccine administered Diabetes mellitus History of colon cancer (~2010) Cardiomyopathy PVC (premature ventricular contraction) SVT (supraventricular tachycardia) CAD (coronary artery disease) Surgical History (Updated 02/20/24 @ 18:07 by Magnolia Cruz NP-C) History of pacemaker (~2021) History of coronary artery bypass graft x 3 (~1998) History of hernia repair (~2012) History of colonoscopy History of left knee surgery (~2003) History of right knee surgery History of colostomy (~2010) History of partial colectomy (~2011) History of tonsillectomy History of repair of rotator cuff History of cataract surgery (~2013) History of cardiac cath History of colostomy reversal (~2011) Family History Father Cancer, colon Mother Cancer of breast Cancer of lung Sister Cancer Social History Household Members: Spouse Housing: House Are you a primary medicare biller to a significant other at home: No Do you presently have visiting nurse or other home services: No Alcohol intake: current Alcohol intake frequency: 0-2 drinks per day Comment: previously medicated with po tylenol Patient Tobacco Use Status: Never used Tobacco e-Cigarette/Vaping Use: Never Used Second Hand Smoke Exposure: No service: No Current occupational status: retired Cognitive needs: No Hearing needs: No Vision needs: Yes (glasses) Review of Systems Const Denies chills, Denies excessive sweating, Denies fever(s), Denies headache(s) and Denies night sweats Eyes Denies dry eyes, Denies irritation and Denies itchy eyes ENT Reports Normal hearing present, Denies headache(s), Denies nasal congestion, Denies nasal discharge, Denies post nasal drip and Denies sore throat Card Denies chest pain, Denies chest pain at rest, Denies chest pain with activity, Denies claudication, Denies leg edema, Denies orthopnea and Denies paroxysmal nocturnal dyspnea Resp Denies chest congestion, Denies cough, Denies excessive phlegm production, Denies pain on inspiration, Denies pain with cough, Denies stridor and Denies wheezing Musc Denies myalgias Neuro Reports Normal hearing present and Denies headache(s) Endo Denies excessive sweating Cornel/Lymph Denies lymphadenopathy Aller/Immun Denies itchy eyes, Denies seasonal rhinorrhea and Denies wheezing Physical Exam Vital Signs: Last Vital Signs Pulse 61 04/24/24 10:02 BP 104/68 04/24/24 10:02 Pulse Ox 97 04/24/24 10:02 Oxygen Delivery Method Room Air 04/24/24 10:02 BMI result Body Mass Index 29.8 Const General: cooperative, healthy appearing, comfortable, no acute distress, well developed and alert Nutritional Appearance: obese Orientation/consciousness: patient oriented x3 Limitations: no limitations HEENT Head: Yes normal to inspection, Yes normocephalic and Yes atraumatic Ears: hearing grossly normal bilaterally and external ears normal Eyes General: appearance normal, both eyes and all related structures Eyelids: Yes eyelids normal Sclerae: sclerae normal EOM: EOMs intact bilaterally Neck Neck: Yes normal visual inspection and Yes no lymphadenopathy Lymphatic: no lymphadenopathy noted Chest Chest palpation & inspection: normal inspection of the chest Resp Effort & Inspection: normal respiratory effort, able to speak in complete sentences, no audible wheezes, no cough, no stridor, not tachypneic, no tripod positioning and no use of accessory muscles Auscultation: clear to auscultation bilaterally Cardio Jugular venous distension: no JVD Rate: regular rate Rhythm: regular rhythm Skin Other: warm, dry General skin exam: no rashes or lesions noted Neuro General: patient oriented x3 Cranial nerves: Yes Normal hearing present Cognition (Neuro): normal cognition Gait exam (Neuro): Normal gait present Extrem General: Yes normal to inspection, Yes capillary refill normal, Yes no clubbing, cyanosis or edema and Yes no pedal edema Psych Appearance: grossly normal and well kempt Speech and movement: Normal speech and movement present and Clear speech present Affect: normal affect Attitude: cooperative Thought process: Normal thought process present Thought content: Normal thought content present Insight: Good insight present (Psych) Judgement: Good judgement present (Psych) Assessment & Plan Assessment & Plan (1) Dyspnea: Code(s): R06.00 - Dyspnea, unspecified Category: Medical (2) Cardiomyopathy: Code(s): I42.9 - Cardiomyopathy, unspecified Category: Medical (3) Decreased diffusion capacity: Code(s): R94.2 - Abnormal results of pulmonary function studies Category: Medical Plan Reviewed CXR negative. He is under cardiac evaluation and will be sent for nuclear PYP scan to assess for amyloidosis. Recent PFT revealed normal spirometry with elevated ERV and decreased RV, with a moderately decreased DLCO 67%. Will send for Chest CT to assess for any underlying parenchymal conditions. All questions were answered and patient is in agreement of plan. Will follow up to review results or sooner if needed. Orders: Orders CT chest wo IV con Today R94.2 - Abnormal results of pulmonary function studies Coding Level of Care Code Est Pt Level 4 (10094) Diagnoses Dyspnea R06.00 Cardiomyopathy I42.9 Decreased diffusion capacity R94.2
[2024-04-24 10:02] VITALS: BP 104/68; PULSE 61; O2SAT 97; BMI 29.8
== END 2024-04-24 10:38 | disposition home or self-care (01) ==
PROVIDERS: PCP Internal Medicine; Visit Provider Nurse Practitioner Family
DX: R06.00 Dyspnea, unspecified (principal); I42.9 Cardiomyopathy, unspecified; R94.2 Abnormal results of pulmonary function studies
CPT/HCPCS: 99214

== ENCOUNTER → 2024-04-24 09:58 | Outpatient (BNVA) | payer MEDICARE, SELFPAY ==
[2023-03-31 07:35] VITALS: BP 100/58; BP 126/68
[2023-07-20 15:41] VITALS: BP 90/50; BMI 30.9
== END ==
PROVIDERS: PCP Internal Medicine; Visit Provider Nurse Practitioner Family
DX: R06.02 Shortness of breath (principal); R06.00 Dyspnea, unspecified; R94.2 Abnormal results of pulmonary function studies; I42.9 Cardiomyopathy, unspecified
CPT/HCPCS: 99212

== ENCOUNTER 2024-05-08 09:01 | Outpatient (REF) | payer MEDICARE, SELFPAY ==
[2023-03-31 07:35] VITALS: BP 100/58; BP 126/68
[2023-07-20 15:41] VITALS: BP 90/50; BMI 30.9
[2024-05-08 10:59] LABS: MANUAL DIFF FLAG NO
[2024-05-08 11:19] LABS: Basophils Absolute Auto 0.1 X10*3/uL (0.0-0.2); Basophils Percent Auto 0.9 % (0-2); Eosinophils Absolute Auto 0.1 X10*3/uL (0.0-0.4); Eosinophils Percent Auto 1.3 % (0-4); Hematocrit 46.9 % (42.0-52.0); Hemoglobin 15.5 g/dl (14.0-18.0); Imm Gran Abs Auto 0.02 X10*3/uL (0.00-0.03); Imm Gran Pct Auto 0.3 % (0.0-0.4); Lymphocytes Absolute Auto 1.5 X10*3/uL (1.2-4.9); Lymphocytes Percent Auto 18.5 % (20-40); Mean Corpuscular Hemoglobin 29.8 pg (27.0-33.0); Mean Corpuscular Volume 90.2 fL (80.0-98.0); Monocytes Absolute Auto 0.7 X10*3/uL (0.1-1.2); Monocytes Percent Auto 8.5 % (2-11); Neutrophils Absolute Auto 5.6 x10*3/uL (2.0-8.3); Neutrophils Percent Auto 70.5 % (45-73); Platelet Count 190 X10*3/uL (160-400); Red Cell Distribution Width 12.8 % (11.0-16.0); White Blood Count 7.9 X10*3/uL (4.8-10.8)
[2024-05-08 11:23] LABS: Estimated Average Glucose 171 mg/dL; Hemoglobin A1C 230.3945 umol/L; Hemoglobin A1c % 7.6 % (<6.0); Total Hemoglobin (HGBA1C) 3891.3655 umol/L
[2024-05-08 11:34] LABS: Alanine Aminotransferase 18 U/L (0-40); Albumin Level 3.9 g/dL (3.5-5.0); Alkaline Phosphatase 63 U/L (39-117); Anion Gap 13 (12-20); Aspartate Amino Transferase 20 U/L (5-37); Bilirubin Total 0.6 mg/dL (0.0-1.0); Blood Urea Nitrogen 24 mg/dL (9-16); Calcium 9.3 mg/dL (8.4-10.2); Carbon Dioxide 25 mmol/L (22-29); Chloride 107 mmol/L (96-108); Cholesterol 103 mg/dL (<200); Estimated Glomerular Filt Rate > 60; Glucose Fasting 162 mg/dL (60-99); HDL Cholesterol 32 mg/dL (>40); LDL Cholesterol Calculated 51 mg/dL (<100); Potassium 4.3 mmol/L (3.3-5.1); Sodium 141 mmol/L (135-145); Total Protein 6.7 g/dL (6.5-8.0); Triglycerides 103 mg/dL (<150)
[2024-05-08 11:54] LABS: Creatinine Urine 181.58 mg/dL
== END 2024-05-08 09:02 | disposition home or self-care (01) ==
LOC: HO.WFDLDS 09:01
PROVIDERS: Visit Provider Internal Medicine
DX: E11.69 Type 2 diabetes mellitus with other specified complication (principal); E11.65 Type 2 diabetes mellitus with hyperglycemia; E66.01 Morbid (severe) obesity due to excess calories; Z13.0 Encounter for screening for diseases of the blood and blood-forming organs and certain disorders involving the immune mechanism; Z13.220 Encounter for screening for lipoid disorders
CPT/HCPCS: 36415; 80053; 80061; 82043; 82570; 83036; 85025

== ENCOUNTER 2024-05-09 08:31 | Outpatient (AMB) | payer MEDICARE, SELFPAY ==
[2023-03-31 07:35] VITALS: BP 100/58; BP 126/68
[2023-07-20 15:41] VITALS: BP 90/50; BMI 30.9
[2024-05-09 08:32] VITALS: BP 104/68; PULSE 61; O2SAT 96; BMI 30.1
--- NOTE | 2024-05-09 08:32 | MHC.PC.OV ---
Vital Signs 05/09/24 08:32 Height 5 ft 9 in Weight 204 lb BMI 30.1 BP 104/68 Blood Pressure Location Lt brachial Position Sitting Pulse 61 Pulse Source Pulse Oximeter Pulse Oximetry (%) 96 Oxygen Delivery Method Room Air Intake Visit Reasons: 3mth f/u - see comments Silhouette Artist Required: No Accompanied by: Self / Same As Patient Allergies BERNABE Inhibitors [BERNABE INHIBITORS] Allergy (Intermediate, Verified 05/09/24 08:34) DEPRESSION latex [LATEX] Allergy (Intermediate, Verified 05/09/24 08:34) RASH terazosin Allergy (Intermediate, Verified 05/09/24 08:34) hives, swollen lips and hoarseness pravastatin [Pravachol] Allergy (Unknown, Verified 05/09/24 08:34) unknown bee pollen [bee stings] Adverse Reaction (Severe, Verified 05/09/24 08:34) Anaphylaxis Beta-Blockers (Beta-Adrenergic Bloc [BETA-BLOCKERS (BETA-ADRENERGIC BLOC] Adverse Reaction (Intermediate, Verified 05/09/24 08:34) DECREASED HR, DEPRESSION amoxicillin Allergy (Intermediate, Uncoded 05/09/24 08:34) hives, swollen lips, and hoarseness cephlex: levofloxacin Allergy (Intermediate, Uncoded 05/09/24 08:34) hives, swollen lips, and hoarseness clindomycin Allergy (Intermediate, Uncoded 05/09/24 08:34) hives, swollen lips, and hoarseness Medication List - Last Reconciled 05/14/24 by Mckinley Choi MD aspirin (Adult Low Dose Aspirin) 81 mg PO DAILY bisoprolol fumarate 2.5 mg (1/2 x 5 mg) PO DAILY blood sugar diagnostic ([place] Verio test strips) 1 Strip Once a Day blood-glucose meter ([employer] [place] Verio Meter) to check blood sugars once a day diphenhydramine HCl (Benadryl Allergy) 25 mg PO TID PRN empagliflozin (Jardiance) 25 mg PO DAILY ezetimibe (Zetia) 10 mg PO DAILY finasteride 5 mg PO DAILY fluticasone propionate 50 mcg/actuation (Flonase Allergy Relief) 1 spray intranasal DAILY lancets ([place] Delica Lancets) to check blood sugars once a day meloxicam 15 mg PO DAILY metformin ER 500 mg PO BID nitroglycerin 0.4 mg sublingual Q5M PRN rosuvastatin 40 mg PO DAILY Tobacco use date assessed: 01/27/24 Fall risk assessment: No Falls in past year Last assessed Fall Risk: 05/09/24 Dental Screening Dental Screen Date: 11/02/23 HPI 3mth f/u - see comments HPI Details DM dietary indiscretion; will improve [facility] Medical History (Updated 04/24/24 @ 13:51 by Cora Sommers NP) Pacemaker (~2021) Bradycardia (~2021) History of COVID-19 BPH (benign prostatic hyperplasia) Hypertension Obesity Hyperlipidemia associated with type 2 diabetes mellitus Tubular adenoma of colon COVID-19 vaccine administered Diabetes mellitus History of colon cancer (~2010) Cardiomyopathy PVC (premature ventricular contraction) SVT (supraventricular tachycardia) CAD (coronary artery disease) Surgical History (Updated 02/20/24 @ 18:07 by Magnolia Cruz, [employer]PER[employer]) History of pacemaker (~2021) History of coronary artery bypass graft x 3 (~1998) History of hernia repair (~2012) History of colonoscopy History of left knee surgery (~2003) History of right knee surgery History of colostomy (~2010) History of partial colectomy (~2011) History of tonsillectomy History of repair of rotator cuff History of cataract surgery (~2013) History of cardiac cath History of colostomy reversal (~2011) Family History Father Cancer, colon Mother Cancer of breast Cancer of lung Sister Cancer Social History Household Members: Spouse Housing: House Are you a primary certified social workers in health care to a significant other at home: No Do you presently have visiting nurse or other home services: No Alcohol intake: current Alcohol intake frequency: 0-2 drinks per day Comment: previously medicated with po tylenol Patient Tobacco Use Status: Never used Tobacco Tobacco use type: Cigarette e-Cigarette/Vaping Use: Never Used Second Hand Smoke Exposure: No service: No Current occupational status: retired Cognitive needs: No Hearing needs: No Vision needs: Yes (glasses) Questionnaire PHQ-9 Over the last 2 weeks, how often have you been bothered by any of the following problems? 1. Little interest or pleasure in doing things: not at all 2. Feeling down, depressed, or hopeless: not at all 3. Trouble falling or staying asleep, or sleeping too much: not at all 4. Feeling tired or having little energy: not at all 5. Poor appetite or overeating: not at all 6. Feeling bad about yourself - or that you are a failure or have let yourself or your family down: not at all 7. Trouble concentrating on things, such as reading the newspaper or watching television: not at all 8. Moving or speaking so slowly that other people could have noticed. Or the opposite - being so fidgety or restless that you have been moving around a lot more than usual: not at all 9. Thoughts that you would be better off or of hurting yourself in some way: not at all Total score: 0 Depression Screening Interpretation: Negative Depression Screening Done: Yes [id number] - PHQ-9 Billing: Yes Source: Developed by Drs. Ivan Humphrey, Rachel Sigala, Bradley Rojas and colleagues, with an educational henry from [employer]. Thrive Questionnaire Date Thrive assessed: 11/02/23 AUDIT C Alcohol Use Questionnaire (AUDIT-C) 1. How often do you have a drink containing alcohol?: Monthly or less 2. How many drinks containing alcohol do you have on a typical day when you are drinking?: 1 or 2 3. How often do you have six or more drinks on one occasion?: Never Total Score: 1 Score Reviewed/Action Taken: Yes JOE-7 AMB Questionnaire JOE-7 Date JOE - 7 assessed: 11/02/23 Source: Developed by Drs. Ivan Humphrey, Rachel Sigala, Bradley Rojas and colleagues, with an educational henry from [employer]. Review of Systems Const Denies chills, Denies headache(s) and Denies weight loss ENT Denies headache(s) Card Denies chest pain, Denies syncope, Denies irregular heart rhythm and Denies dyspnea Resp Denies chest congestion, Denies cough and Denies dyspnea GI Denies abdominal pain, Denies change in stool character, Denies nausea and Denies vomiting Musc Denies deformity and Denies joint swelling Neuro Denies syncope and Denies headache(s) Physical exam (Primary Care) Vital Signs: Last Vital Signs Pulse 61 05/09/24 08:32 BP 104/68 05/09/24 08:32 Pulse Ox 96 05/09/24 08:32 Oxygen Delivery Method Room Air 05/09/24 08:32 BMI result Body Mass Index 30.1 Tobacco/Smoking Status: Tobacco use Status Tobacco use date assessed 01/27/24 05/09/24 08:37 Patient Tobacco Use Status Never used Tobacco 05/09/24 08:37 Tobacco use type Cigarette 05/09/24 08:37 e-Cigarette/Vaping Use Never Used 05/09/24 08:37 PHQ-9: PHQ-9 Score PHQ-9: Total score 0 05/09/24 08:37 Depression Screening Interpretation: Negative Thrive Assessment: Date of Thrive Assessment Date Thrive assessed 11/02/23 05/09/24 08:37 Const General: cooperative, comfortable, no acute distress and alert Neck Neck: Yes no lymphadenopathy Thyroid: Thyroid normal Resp Effort & Inspection: normal respiratory effort Auscultation: clear to auscultation bilaterally Percussion: percussion normal Cardio Jugular venous distension: no JVD Palpation: normal PMI Rate: regular rate Rhythm: regular rhythm Heart sounds: S1 normal heart sound present and S2 normal heart sound present GI Inspection: Yes normal to inspection Palpation (GI): No hepatosplenomegaly present Skin General skin exam: no rashes or lesions noted Extrem General: Yes no clubbing, cyanosis or edema Coding Level of Care Code Est Pt Level 3 (44029) Diagnoses Diabetes mellitus with coincident hypertension E11.9; I10 Assessment & Plan Assessment & Plan (1) Diabetes mellitus with coincident hypertension: Code(s): E11.9 - Type 2 diabetes mellitus without complications; I10 - Essential (primary) hypertension Category: Medical Plan: same rx for now Orders: Orders Hemoglobin A1c 05/09/24 R73.9 - Hyperglycemia, unspecified Glucose Fasting 05/09/24 R73.9 - Hyperglycemia, unspecified Medications: New empagliflozin (Jardiance) 25 mg PO DAILY 90 tabs 5RF
== END 2024-05-09 09:02 | disposition home or self-care (01) ==
PROVIDERS: PCP Internal Medicine; Visit Provider Internal Medicine
DX: E11.9 Type 2 diabetes mellitus without complications (principal); I10 Essential (primary) hypertension

== ENCOUNTER → 2024-05-09 08:31 | Outpatient (BNVA) | payer MEDICARE, SELFPAY ==
[2023-03-31 07:35] VITALS: BP 100/58; BP 126/68
[2023-07-20 15:41] VITALS: BP 90/50; BMI 30.9
== END ==
PROVIDERS: PCP Internal Medicine; Visit Provider Internal Medicine
DX: I10 Essential (primary) hypertension (principal); E11.9 Type 2 diabetes mellitus without complications; Z79.85 Long-term (current) use of injectable non-insulin antidiabetic drugs
CPT/HCPCS: 96127; 99212

== ENCOUNTER 2024-05-22 14:08 | Outpatient (AMB) | payer MEDICARE, SELFPAY ==
[2023-03-31 07:35] VITALS: BP 100/58; BP 126/68
[2023-07-20 15:41] VITALS: BP 90/50; BMI 30.9
--- NOTE | 2024-05-22 14:11 | A.OFFVIS_ITS ---
Vital Signs 05/22/24 14:12 Height 5 ft 9 in Weight 207 lb 3.752 oz BMI 30.6 BP 120/76 Blood Pressure Location Lt brachial Position Sitting Pulse 67 Intake Visit Reasons: 3 mth f/up Intake Note: 3 month follow-up with [facility] c/o sob but not new Branch Maker Required: No Allergies BERNABE Inhibitors [BERNABE INHIBITORS] Allergy (Intermediate, Verified 05/09/24 08:34) DEPRESSION latex [LATEX] Allergy (Intermediate, Verified 05/09/24 08:34) RASH terazosin Allergy (Intermediate, Verified 05/09/24 08:34) hives, swollen lips and hoarseness pravastatin [Pravachol] Allergy (Unknown, Verified 05/09/24 08:34) unknown bee pollen [bee stings] Adverse Reaction (Severe, Verified 05/09/24 08:34) Anaphylaxis Beta-Blockers (Beta-Adrenergic Bloc [BETA-BLOCKERS (BETA-ADRENERGIC BLOC] Adverse Reaction (Intermediate, Verified 05/09/24 08:34) DECREASED HR, DEPRESSION amoxicillin Allergy (Intermediate, Uncoded 05/09/24 08:34) hives, swollen lips, and hoarseness cephlex: levofloxacin Allergy (Intermediate, Uncoded 05/09/24 08:34) hives, swollen lips, and hoarseness clindomycin Allergy (Intermediate, Uncoded 05/09/24 08:34) hives, swollen lips, and hoarseness Medication List - Last Reconciled 05/22/24 by Marquise Espinoza MD aspirin (Adult Low Dose Aspirin) 81 mg PO DAILY bisoprolol fumarate 2.5 mg (1/2 x 5 mg) PO DAILY blood sugar diagnostic ([employer] Verio test strips) 1 Strip Once a Day blood-glucose meter ([employer] Verio Meter) to check blood sugars once a day diphenhydramine HCl (Benadryl Allergy) 25 mg PO TID PRN ezetimibe (Zetia) 10 mg PO DAILY finasteride 5 mg PO DAILY fluticasone propionate 50 mcg/actuation (Flonase Allergy Relief) 1 spray intranasal DAILY lancets ([employer] Delica Lancets) to check blood sugars once a day meloxicam 15 mg PO DAILY metformin ER 500 mg PO BID nitroglycerin 0.4 mg sublingual Q5M PRN rosuvastatin 40 mg PO DAILY HPI Comments Details: Kartik comes for follow-up. He said since doing cardiac rehab he has been feeling much better and much less short of breath. He also feels better off isosorbide and on low-dose Bystolic with normal with blood pressure with less episodes of lightheadedness. Has had no syncopal episodes. Denies any orthopnea, PND, leg edema. No prolonged palpitations irregular heartbeat. Denies any exertional chest pain. Tolerating his medications well at this point in time. His last LDL was 51 mg/dL. [facility] Medical History (Updated 05/22/24 @ 14:40 by Marquise Espinoza MD) Ischemic cardiomyopathy Pacemaker (~2021) Bradycardia (~2021) History of COVID-19 BPH (benign prostatic hyperplasia) Hypertension Obesity Hyperlipidemia associated with type 2 diabetes mellitus Tubular adenoma of colon COVID-19 vaccine administered Diabetes mellitus History of colon cancer (~2010) PVC (premature ventricular contraction) SVT (supraventricular tachycardia) CAD (coronary artery disease) Surgical History History of pacemaker (~2021) History of coronary artery bypass graft x 3 (~1998) History of hernia repair (~2012) History of colonoscopy History of left knee surgery (~2003) History of right knee surgery History of colostomy (~2010) History of partial colectomy (~2011) History of tonsillectomy History of repair of rotator cuff History of cataract surgery (~2013) History of cardiac cath History of colostomy reversal (~2011) Family History Father Cancer, colon Mother Cancer of breast Cancer of lung Sister Cancer Social History Household Members: Spouse Housing: House Are you a primary career based intervention coordinator to a significant other at home: No Do you presently have visiting nurse or other home services: No Alcohol intake: current Alcohol intake frequency: 0-2 drinks per day Comment: previously medicated with po tylenol Patient Tobacco Use Status: Never used Tobacco Tobacco use type: Cigarette e-Cigarette/Vaping Use: Never Used Second Hand Smoke Exposure: No service: No Current occupational status: retired Cognitive needs: No Hearing needs: No Vision needs: Yes (glasses) Review of Systems Const Denies chills, Denies fatigue, Denies fever(s), Denies frequent falls, Denies weakness, Denies weight gain and Denies weight loss ENT Denies dizziness Card Denies chest pain, Denies leg edema, Denies lightheadedness, Denies palpitations, Denies dyspnea, Denies dyspnea on exertion, Denies orthopnea and Denies other (loss of consciousness) Resp Denies cough, Denies dyspnea and Denies dyspnea on exertion GI Denies hematochezia and Denies change in stool character Musc Denies abnormal gait, Denies muscle weakness, Denies numbness, Denies radiating pain into limb and Denies tingling Neuro Denies abnormal gait, Denies dizziness, Denies frequent falls, Denies numbness, Denies tingling and Denies weakness Endo Denies fatigue and Denies palpitations Physical Exam Vital Signs: Last Vital Signs Pulse 67 05/22/24 14:12 BP 120/76 05/22/24 14:12 BMI result Body Mass Index 30.6 Const General: cooperative, comfortable, no acute distress, alert, awake and well groomed Nutritional Appearance: obese Orientation/consciousness: patient oriented x3 HEENT Head: Yes normal to inspection Eyes Sclerae: sclerae normal Neck Neck: Yes trachea midline, Yes supple and Yes no JVD Carotids: normal carotid upstroke Chest Chest palpation & inspection: normal inspection of the chest Resp Effort & Inspection: normal respiratory effort Auscultation: clear to auscultation bilaterally, no crackles, no rales, no rhonchi and no wheezes Cardio Jugular venous distension: no JVD Rate: regular rate Rhythm: regular rhythm Heart sounds: S1 normal heart sound present, S2 normal heart sound present, no gallops, no murmurs and no rubs Peripheral pulses: Peripheral pulses 2+ throughout GI Inspection: Yes normal to inspection Skin General skin exam: no rashes or lesions noted Neuro General: patient oriented x3 Extrem General: Yes normal to inspection, No no pedal edema and No calf tenderness Office Procedures Cardiac Device Check Cardiac Device Check Details: Dual-chamber [place] pacemaker in place. Programmed in DDDR at 60 beats per minute. Atrial pacing 73% of time. Minimal ventricular pacing. Frequent PVCs noted. Atrial ventricular capture thresholds are in auto capture mode. Atrial ventricular sensing is excellent. Pacing lead impedance is stable. Battery life is at about 9 years. No sustained arrhythmias such as atrial fibrillation noted [id number] Cardiac Device Check, pacemaker dual lead Procedure code (CPT) selection complete Assessment & Plan Assessment & Plan (1) CAD (coronary artery disease): Comment: (Hx CABG x 3 - FIELDS to LAD, radial graft to Ramus, free GOYO to RCA - 1998) Code(s): I25.10 - Atherosclerotic heart disease of saxman coronary artery without angina pectoris Category: Medical Plan: Complex CAD with severe saxman coronary disease with patent grafts. He does have a left main into ostial circumflex disease although diffusely diseased small caliber circumflex artery. His symptoms of angina or exertional shortness of breath. He says symptoms have improved with phase 2 cardiac rehabilitation. He has not tolerated other antianginal therapies including isosorbide and Ranexa. Isosorbide for low blood pressure. Currently on Bystolic therapy. Overall doing well. Discussed to call me with any new symptoms. Currently management will be medical. Continue low-dose aspirin therapy for life. Continue high-intensity statin therapy with well optimized LDL. Encouraged to continue to participate in physical activity as tolerated. (2) SVT (supraventricular tachycardia): Code(s): I47.1 - Supraventricular tachycardia Category: Medical Plan: SVT in the past now suppressed on low-dose bisoprolol therapy. One episode of palpitation 2 weeks ago which was self limiting. Avoidance of stimulants was discussed. Vagal maneuvers were discussed. (3) Ischemic cardiomyopathy: Code(s): I25.5 - Ischemic cardiomyopathy Category: Medical Plan: Moderate LV systolic dysfunction most likely related to ischemic cardiomyopathy. Clinically euvolemic and well compensated. No symptoms of heart failure at this point time. Can not tolerate other neurohormonal modulation due to low blood pressure. Continue bisoprolol therapy. Signs and symptoms of heart failure were discussed advised to call me with any new symptoms. (4) Pacemaker: Onset Date: ~2021 Comment: ([employer] DCPP - placed 06/18/22) Code(s): Z95.0 - Presence of cardiac pacemaker Category: Medical Plan: Cardiac pacemaker in-situ for sick sinus syndrome. Pacemaker was reprogrammed for adequate functioning. Pacemaker is working well at this point time. Will follow remotely in 3 months. Follow up in the clinic in 6 months time Will follow up in the clinic in 6 months time, sooner p.r.n.. If there is progressive LV systolic dysfunction may be a candidate for defibrillator therapy. Coding Level of Care Code Est Pt Level 4 (46108) Complex EM visit Add On G2211 Diagnoses CAD (coronary artery disease) I25.10 SVT (supraventricular tachycardia) I47.1 Ischemic cardiomyopathy I25.5 Pacemaker Z95.0 CPT Codes Cardiac Device Check - Cardiac Device 2: [id number] Cardiac Device Check, pacemaker dual lead ([id number])
[2024-05-22 14:12] VITALS: BP 120/76; PULSE 67; BMI 30.6
== END 2024-05-22 14:39 | disposition home or self-care (01) ==
PROVIDERS: PCP Internal Medicine; Visit Provider Internal Medicine Cardiovascular Disease
DX: I25.10 Atherosclerotic heart disease of native coronary artery without angina pectoris (principal); I47.10 Supraventricular tachycardia, unspecified; I25.5 Ischemic cardiomyopathy; Z95.0 Presence of cardiac pacemaker
CPT/HCPCS: 93280; 99214; G2211

== ENCOUNTER → 2024-05-22 14:08 | Outpatient (BNVA) | payer MEDICARE, SELFPAY ==
[2023-03-31 07:35] VITALS: BP 100/58; BP 126/68
[2023-07-20 15:41] VITALS: BP 90/50; BMI 30.9
== END ==
PROVIDERS: PCP Internal Medicine; Visit Provider Internal Medicine Cardiovascular Disease
DX: I47.10 Supraventricular tachycardia, unspecified (principal); I25.10 Atherosclerotic heart disease of native coronary artery without angina pectoris; I10 Essential (primary) hypertension; I25.5 Ischemic cardiomyopathy; I49.3 Ventricular premature depolarization; Z95.1 Presence of aortocoronary bypass graft; Z45.010 Encounter for checking and testing of cardiac pacemaker pulse generator [battery]
CPT/HCPCS: 93280; 99212

== ENCOUNTER 2024-06-06 09:09 | Outpatient (AMB) | payer MEDICARE, SELFPAY ==
[2023-03-31 07:35] VITALS: BP 100/58; BP 126/68
[2023-07-20 15:41] VITALS: BP 90/50; BMI 30.9
[2024-06-06 09:13] VITALS: BP 126/74; PULSE 55; O2SAT 97; BMI 30.9
--- NOTE | 2024-06-06 09:13 | A.OFFVIS_ITS ---
Vital Signs 06/06/24 09:13 Height 5 ft 9 in Weight 209 lb BMI 30.9 BP 126/74 Blood Pressure Location Rt brachial Position Sitting Pulse 55 Pulse Oximetry (%) 97 Oxygen Delivery Method Room Air Intake Visit Reasons: Shortness of breath Riding Teacher Required: No Sander Portable Machine: Sander Portable Machine offered & declined Accompanied by: Self / Same As Patient Allergies BERNABE Inhibitors [BERNABE INHIBITORS] Allergy (Intermediate, Verified 06/06/24 09:20) DEPRESSION latex [LATEX] Allergy (Intermediate, Verified 06/06/24 09:20) RASH terazosin Allergy (Intermediate, Verified 06/06/24 09:20) hives, swollen lips and hoarseness pravastatin [Pravachol] Allergy (Unknown, Verified 06/06/24 09:20) unknown bee pollen [bee stings] Adverse Reaction (Severe, Verified 06/06/24 09:20) Anaphylaxis Beta-Blockers (Beta-Adrenergic Bloc [BETA-BLOCKERS (BETA-ADRENERGIC BLOC] Adverse Reaction (Intermediate, Verified 06/06/24 09:20) DECREASED HR, DEPRESSION amoxicillin Allergy (Intermediate, Uncoded 06/06/24 09:20) hives, swollen lips, and hoarseness cephlex: levofloxacin Allergy (Intermediate, Uncoded 06/06/24 09:20) hives, swollen lips, and hoarseness clindomycin Allergy (Intermediate, Uncoded 06/06/24 09:20) hives, swollen lips, and hoarseness Medication List - Last Reconciled 06/06/24 by Ana Alexis LPN aspirin (Adult Low Dose Aspirin) 81 mg PO DAILY bisoprolol fumarate 2.5 mg (1/2 x 5 mg) PO DAILY blood sugar diagnostic ([employer] Verio test strips) 1 Strip Once a Day blood-glucose meter ([employer] Verio Meter) to check blood sugars once a day diphenhydramine HCl (Benadryl Allergy) 25 mg PO TID PRN ezetimibe (Zetia) 10 mg PO DAILY finasteride 5 mg PO DAILY fluticasone propionate 50 mcg/actuation (Flonase Allergy Relief) 1 spray intranasal DAILY lancets ([employer] Delica Lancets) to check blood sugars once a day meloxicam 15 mg PO DAILY metformin ER 500 mg PO BID nitroglycerin 0.4 mg sublingual Q5M PRN rosuvastatin 40 mg PO DAILY HPI HPI Shortness of breath: Details: Kartik is a pleasant 79 year old male, never smoker, with underlying h/o adenocarcinoma of colon 2010, hypertension, hyperlipidemia, diabetes, severe CAD, coronary artery bypass grafting 1998, ischemic cardiomyopathy, pacemaker for SSS, and supraventricular tachycardia. Prior cardiac evaluation revealed prior LVEF 35-40%, mild aortic regurgitation, RVSP 34 . Cardiac cath on 02/02/24 revealed PA mean 21 and wedge pressure 12 mmHg, not suggestive of pulmonary hypertension. . Prior CXR 10/2022 unremarkable. Prior PFT revealed normal spirometry and mildly decreased DLCO. Since the last visit he had discontinued isosorbide and reports resolution of respiratory symptoms. He has restarted his exercise regimen without any dyspnea. He denies any cough, wheezing or chest tightness. He does note that he is up-to-date with his vaccinations and received his flu shot yesterday at [facility]. [facility] Medical History (Updated 05/22/24 @ 14:40 by Marquise Espinoza MD) Ischemic cardiomyopathy Pacemaker (~2021) Bradycardia (~2021) History of COVID-19 BPH (benign prostatic hyperplasia) Hypertension Obesity Hyperlipidemia associated with type 2 diabetes mellitus Tubular adenoma of colon COVID-19 vaccine administered Diabetes mellitus History of colon cancer (~2010) PVC (premature ventricular contraction) SVT (supraventricular tachycardia) CAD (coronary artery disease) Surgical History History of pacemaker (~2021) History of coronary artery bypass graft x 3 (~1998) History of hernia repair (~2012) History of colonoscopy History of left knee surgery (~2003) History of right knee surgery History of colostomy (~2010) History of partial colectomy (~2011) History of tonsillectomy History of repair of rotator cuff History of cataract surgery (~2013) History of cardiac cath History of colostomy reversal (~2011) Family History Father Cancer, colon Mother Cancer of breast Cancer of lung Sister Cancer Social History Household Members: Spouse Housing: House Are you a primary adult live in caregiver to a significant other at home: No Do you presently have visiting nurse or other home services: No Alcohol intake: current Alcohol intake frequency: 0-2 drinks per day Comment: previously medicated with po tylenol Patient Tobacco Use Status: Never used Tobacco Tobacco use type: Cigarette e-Cigarette/Vaping Use: Never Used Second Hand Smoke Exposure: No service: No Current occupational status: retired Cognitive needs: No Hearing needs: No Vision needs: Yes (glasses) Review of Systems Const Denies chills, Denies excessive sweating, Denies fever(s), Denies headache(s) and Denies night sweats Eyes Denies dry eyes, Denies irritation and Denies itchy eyes ENT Reports Normal hearing present, Denies headache(s), Denies nasal congestion, Denies nasal discharge, Denies post nasal drip and Denies sore throat Card Denies chest pain, Denies chest pain at rest, Denies chest pain with activity, Denies claudication, Denies leg edema, Denies dyspnea on exertion, Denies orthopnea and Denies paroxysmal nocturnal dyspnea Resp Denies chest congestion, Denies cough, Denies excessive phlegm production, Denies pain on inspiration, Denies pain with cough, Denies dyspnea on exertion, Denies stridor and Denies wheezing Musc Denies myalgias Neuro Reports Normal hearing present and Denies headache(s) Endo Denies excessive sweating Cornel/Lymph Denies lymphadenopathy Aller/Immun Denies itchy eyes, Denies seasonal rhinorrhea and Denies wheezing Physical Exam Vital Signs: Last Vital Signs Pulse 55 06/06/24 09:13 BP 126/74 06/06/24 09:13 Pulse Ox 97 06/06/24 09:13 Oxygen Delivery Method Room Air 06/06/24 09:13 BMI result Body Mass Index 30.9 Const General: cooperative, healthy appearing, comfortable, no acute distress, well developed and alert Nutritional Appearance: obese Orientation/consciousness: patient oriented x3 Limitations: no limitations HEENT Head: Yes normal to inspection, Yes normocephalic and Yes atraumatic Ears: hearing grossly normal bilaterally and external ears normal Eyes General: appearance normal, both eyes and all related structures Eyelids: Yes eyelids normal Sclerae: sclerae normal EOM: EOMs intact bilaterally Neck Neck: Yes normal visual inspection and Yes no lymphadenopathy Lymphatic: no lymphadenopathy noted Chest Chest palpation & inspection: normal inspection of the chest Resp Effort & Inspection: normal respiratory effort, able to speak in complete sentences, no audible wheezes, no cough, no stridor, not tachypneic, no tripod positioning and no use of accessory muscles Auscultation: clear to auscultation bilaterally Cardio Jugular venous distension: no JVD Rate: regular rate Rhythm: regular rhythm Skin Other: warm, dry General skin exam: no rashes or lesions noted Neuro General: patient oriented x3 Cranial nerves: Yes Normal hearing present Cognition (Neuro): normal cognition Gait exam (Neuro): Normal gait present Extrem General: Yes normal to inspection, Yes capillary refill normal, Yes no clubbing, cyanosis or edema and Yes no pedal edema Psych Appearance: grossly normal and well kempt Speech and movement: Normal speech and movement present and Clear speech present Affect: normal affect Attitude: cooperative Thought process: Normal thought process present Thought content: Normal thought content present Insight: Good insight present (Psych) Judgement: Good judgement present (Psych) Assessment & Plan Assessment & Plan (1) Cardiomyopathy: Code(s): I42.9 - Cardiomyopathy, unspecified Category: Medical (2) Decreased diffusion capacity: Code(s): R94.2 - Abnormal results of pulmonary function studies Category: Medical Plan Recent PFT revealed normal spirometry with elevated ERV and decreased RV, with a moderately decreased DLCO 67%. He has upcoming Chest CT to assess for any underlying parenchymal conditions contributing to decreased DLCO. At this time he denies any respiratory symptoms and is aware to call office if these recur All questions were answered and patient is in agreement of plan. Will follow up to review results or sooner if needed. Coding Level of Care Code Est Pt Level 3 (81938) Diagnoses Cardiomyopathy I42.9 Decreased diffusion capacity R94.2
== END 2024-06-06 09:40 | disposition home or self-care (01) ==
LOC: HO.HPSW 09:10
PROVIDERS: PCP Internal Medicine; Visit Provider Nurse Practitioner Family
DX: I42.9 Cardiomyopathy, unspecified (principal); R94.2 Abnormal results of pulmonary function studies
CPT/HCPCS: 99213

== ENCOUNTER → 2024-06-06 09:09 | Outpatient (BNVA) | payer MEDICARE, SELFPAY ==
[2023-03-31 07:35] VITALS: BP 100/58; BP 126/68
[2023-07-20 15:41] VITALS: BP 90/50; BMI 30.9
== END ==
PROVIDERS: PCP Internal Medicine; Visit Provider Nurse Practitioner Family
DX: R06.02 Shortness of breath (principal); R94.2 Abnormal results of pulmonary function studies; I25.10 Atherosclerotic heart disease of native coronary artery without angina pectoris; I10 Essential (primary) hypertension; I42.9 Cardiomyopathy, unspecified; Z95.1 Presence of aortocoronary bypass graft; Z95.0 Presence of cardiac pacemaker
CPT/HCPCS: 99212

== ENCOUNTER 2024-06-29 08:56 | Outpatient (REF) | payer MEDICARE, SELFPAY ==
[2023-03-31 07:35] VITALS: BP 100/58; BP 126/68
[2023-07-20 15:41] VITALS: BP 90/50; BMI 30.9
== END 2024-06-29 08:57 | disposition home or self-care (01) ==
LOC: HO.CT 08:56
PROVIDERS: PCP Internal Medicine; Visit Provider Nurse Practitioner Family
DX: R94.2 Abnormal results of pulmonary function studies (principal)
CPT/HCPCS: 71250

== ENCOUNTER → 2024-06-29 08:58 | Outpatient (BNV) | payer MEDICARE, SELFPAY ==
[2023-03-31 07:35] VITALS: BP 100/58; BP 126/68
[2023-07-20 15:41] VITALS: BP 90/50; BMI 30.9
== END ==
PROVIDERS: PCP Internal Medicine; Visit Provider Radiology Diagnostic Radiology
DX: R94.2 Abnormal results of pulmonary function studies (principal)
CPT/HCPCS: 71250

== ENCOUNTER → 2024-07-03 23:59 | Outpatient (BNV) | payer MEDICARE, SELFPAY ==
[2023-03-31 07:35] VITALS: BP 100/58; BP 126/68
[2023-07-20 15:41] VITALS: BP 90/50; BMI 30.9
--- NOTE | 2024-07-04 10:36 | MHC.OFFVIS ---
Intake Visit Reasons: Remote device check- [facility] Allergies BERNABE Inhibitors [BERNABE INHIBITORS] Allergy (Intermediate, Verified 06/06/24 09:20) DEPRESSION latex [LATEX] Allergy (Intermediate, Verified 06/06/24 09:20) RASH terazosin Allergy (Intermediate, Verified 06/06/24 09:20) hives, swollen lips and hoarseness pravastatin [Pravachol] Allergy (Unknown, Verified 06/06/24 09:20) unknown bee pollen [bee stings] Adverse Reaction (Severe, Verified 06/06/24 09:20) Anaphylaxis Beta-Blockers (Beta-Adrenergic Bloc [BETA-BLOCKERS (BETA-ADRENERGIC BLOC] Adverse Reaction (Intermediate, Verified 06/06/24 09:20) DECREASED HR, DEPRESSION amoxicillin Allergy (Intermediate, Uncoded 06/06/24 09:20) hives, swollen lips, and hoarseness cephlex: levofloxacin Allergy (Intermediate, Uncoded 06/06/24 09:20) hives, swollen lips, and hoarseness clindomycin Allergy (Intermediate, Uncoded 06/06/24 09:20) hives, swollen lips, and hoarseness [facility] Medical History (Updated 05/22/24 @ 14:40 by Marquise Espinoza MD) Ischemic cardiomyopathy Pacemaker (~2021) Bradycardia (~2021) History of COVID-19 BPH (benign prostatic hyperplasia) Hypertension Obesity Hyperlipidemia associated with type 2 diabetes mellitus Tubular adenoma of colon COVID-19 vaccine administered Diabetes mellitus History of colon cancer (~2010) PVC (premature ventricular contraction) SVT (supraventricular tachycardia) CAD (coronary artery disease) Surgical History History of pacemaker (~2021) History of coronary artery bypass graft x 3 (~1998) History of hernia repair (~2012) History of colonoscopy History of left knee surgery (~2003) History of right knee surgery History of colostomy (~2010) History of partial colectomy (~2011) History of tonsillectomy History of repair of rotator cuff History of cataract surgery (~2013) History of cardiac cath History of colostomy reversal (~2011) Family History Father Cancer, colon Mother Cancer of breast Cancer of lung Sister Cancer Social History Household Members: Spouse Housing: House Are you a primary career technical counselor to a significant other at home: No Do you presently have visiting nurse or other home services: No Alcohol intake: current Alcohol intake frequency: 0-2 drinks per day Comment: previously medicated with po tylenol Patient Tobacco Use Status: Never used Tobacco Tobacco use type: Cigarette e-Cigarette/Vaping Use: Never Used Second Hand Smoke Exposure: No service: No Current occupational status: retired Cognitive needs: No Hearing needs: No Vision needs: Yes (glasses) Office Procedures Cardiac Device Check Cardiac Device Check Details: Remote pacemaker report generated 07/03/2024. Pacemaker function is adequate [id number] Cardiac Device Interrogation, pacemaker Procedure code (CPT) selection complete Assessment & Plan Assessment & Plan (1) Pacemaker: Onset Date: ~2021 Comment: ([facility] DCPP - placed 06/18/22) Code(s): Z95.0 - Presence of cardiac pacemaker Category: Medical Plan: See above Coding Level of Care Code Procedure Only Diagnoses Pacemaker Z95.0 CPT Codes Cardiac Device Check - Cardiac Device 12: [id number] Cardiac Device Interrogation, pacemaker ([id number])
== END ==
PROVIDERS: PCP Internal Medicine; Visit Provider Internal Medicine Cardiovascular Disease
DX: Z45.018 Encounter for adjustment and management of other part of cardiac pacemaker (principal)
CPT/HCPCS: 93294

== ENCOUNTER 2024-07-20 10:06 | Outpatient (AMB) | payer MEDICARE, SELFPAY ==
[2023-03-31 07:35] VITALS: BP 100/58; BP 126/68
[2023-07-20 15:41] VITALS: BP 90/50; BMI 30.9
--- OUTSIDE RECORDS SUMMARY | 2024-07-20 10:10 | XMS_ITS | Patient Health Record ---
Author Organization Ivan Llanes III, MD Address [address] [address] Care Team Providers Care Plug Wirer Name Role Phone Mckinley Choi MD Primary Care Provider Unavaila Ivan Cisse Unavailable [phone] Allergies Allergen (clinical drug ingredient) Drug/Non Drug Allergy documented on EMR Reaction Allergy Type Onset Date Status Substance with beta adrenergic receptor antagonist mechanism of action (substance) Beta Adrenergic Blockers suncope Drug Allergy Active Tape burn Allergy Active Bee Sting Unknown Allergy Active Reason For Referral No Information Medications Medication SIG (Take, Route, Frequency, Duration) Notes Start Date End Date Status Nitroglycerin 0.4 MG as directed Sublingual PRN Active Benadryl PRN Active Rosuvastatin Calcium 40 MG Oral Active Bisoprolol Fumarate 5 MG 1/2 Tablet Oral ly Once a day Active Aspirin Adult Low Strength 81 MG 1 tablet Orally Once a day Active Zetia 10 MG 1 tablet Orally Once a day Active Finasteride 5 MG Oral Act audra Social History Tobacco Use: Social History Observation [...] in the past year? Never (0 point) Problems Problem Type SNOMED Code ICD Code Onset Dates Problem Status W/U Status Risk Notes Problem [id number] Obesity (E66.9) Active confirmed He has lost 3 pounds. We discussed diet and nutrition today. We reviewed his weight loss strategy. We made a plan to lose weight at a rate of one half of a pound per week. Problem [id number] BPH (benign prostatic hyperplasia) (N40.0) Active confirmed He is taking 3 medications arises from sleep 4 times a night. He will follow up with primary care and urology. Problem [id number] Osteoarthritis of multiple joints, unspecified osteoarthritis type (M15.9) Active confirmed He has mild symptoms arthritis in his knees. He is taking ibuprofen with good relief. Problem 737279215 Erythrocytosis (D75.1) Active confirmed Numerous recent CBC determinations show his hematocrit to be normal. Problem 359439022 Coronary artery disease involving [place] coronary artery without angina pectoris, unspecified whether [place] or transplanted heart (I25.10) Active confirmed Since his [facility] visit he has had no episodes of angina with exertion or at rest. There is no need to change his regimen at this time. Problem 300716012 Malignant neoplasm of colon, unspecified part of colon (C18.9) Active confirmed There is no sign of disease recurrence or of a new primary tumor. He will continue with surveillance and periodic colonoscopies. Problem 137494865 Hyperlipidemia type II (E78.01) Active confirmed His lipids are stable and no change in his regimen was made today. I advised aggressive weight loss. Vital Signs Heart Rate 63 /min 04/06/2024 Temperature 97.5 degrees Fahrenheit 04/06/2024 Blood pressure diastolic 69 mm Hg 04/06/2024 Height 69 in 04/06/2024 Blood pressure systolic 121 mm Hg 04/06/2024 Weight 206 lbs 04/06/2024 BMI 30.42 kg/m2 04/06/2024 Encounters Encounter Location Date Provider Diagnosis Ivan Llanes III, MD [address] [place] [address] [address] [place], [place] [id number] 04/06/2024 Ivan Llanes Malignant neoplasm o f colon, unspecified part of colon C18.9 ; BPH (benign prostatic hyperplasia) N40.0 ; Osteoarthritis of multiple joints, unspecified osteoarthritis type M15.9 ; Coronary artery disease involving [place] coronary artery without angina pectoris, unspecified whether [place] or transplanted heart I25.10 and Obesity E66.9 Assessments Encounter Date Diagnosis (ICD Code) Assessment Notes Treat ment Notes Treatment Clinical Notes 04/06/2024 BPH (benign prostati c hyperplasia) (ICD-10 - N40.0) He is taking 3 medications arises from sleep 4 times a night. He will follow up with primary care and urology. 04/06/2024 Malignant neoplasm o f colon, unspecified part of colon (ICD-10 - C18.9) There is no sign of disease recurrence or of a new primary tumor. He will continue with surveillance and periodic colonoscopies. 04/06/2024 Osteoarthritis of multiple joints, unspecified osteoarthritis type (ICD-10 - M15.9) He has mild symptoms arthritis in his knees. He is taking ibuprofen with good relief. 04/06/2024 Coronary artery disease involving [place] coronary artery without angina pectoris, unspecified whether [place] or transplanted heart (ICD-10 - I25.10) Since [...] a pound per week. Plan Of Treatment Pending Test Test Name Order Date PROFILE, FASTING (COMPREHENSIVE METABOLI C) 09/12/2020 PROFILE, FASTING (COMPREHENSIVE METABOLI C) 09/13/2019 PROFILE, FASTING (COMPREHENSIVE METABOLI C) 04/07/2023 PROFILE, RANDOM (COMPREHENSIVE METABOLIC ) 01/09/2018 PROFILE, RANDOM (COMPREHENSIVE METABOLIC ) 07/11/2018 HEMOGLOBIN A1C (GLYCOHEMOGLOBIN) 021 LIPID PANEL 09/12/2020 LIPID PANEL 09/13/2019 LIPID PANEL 04/07/2023 PSA, TOTAL 04/07/2023 PSA, TOTAL 09/13/2019 CEA 01/09/2018 CEA 07/11/2018 CBC w DIFF 07/11/2018 CBC w DIFF 04/07/2023 CBC w DIFF 12/19/2017 CBC w DIFF 01/09/2018 CBC w DIFF 09/12/2020 CBC w DIFF 09/13/2019 RETICULOCYTE COUNT,CORRECTED 12/19/2017 ERYTHROPOIETIN 12/19/2017 JAK2 MUTATION PCR 12/19/2017 Next Appt Details Provider Name:Ivan Llanes, 04/04/2025 11:00:00 AM, [address] [place] [address] [address], [place], [address], Insurance Providers Payer Name Payer Address Payer Phone Subscriber Number Group Number Insured Name Patient Relationship to Insured Coverage Start Date Coverage End Date MEDICARE N[place] [address] [place] [id number] Kartik Ortiz Self - patient is the insured [facility] [address] [place], [place] [id number] Kartik Ortiz Self - patient is the insured Medical (General) History Medical History History ICD Code coronary artery disease CABG 1998 hyperlipidemia 09/2011 Stage IIa adenocarcinoma of sigmo id colon [id number] bph Surgical History Surgery Date(Month/Year) Pacemaker 07/2022 shoulder tear 2016 both eye cataract surgery 2017 right knee replacement 2016 Right Knee revision 02/2015 cataract surgery 2014 rotator cuff repair 2013 2011 sigmoid colectomy Jul 2011 transverse loop colostomy 1998 3 vessel CABG TKR right colonoscopy 2005
--- OUTSIDE RECORDS SUMMARY | 2024-07-20 10:10 | XMS_ITS ---
Author Organization Ivan Llanes III, MD Address [address] [address] Care Team Providers Care Advertising Designer Name Role Phone Mckinley Choi MD Primary Care Provider Unavaila Ivan Cisse Unavailable [phone] Allergies Allergen (clinical drug ingredient) Drug/Non Drug Allergy documented on EMR Reaction Allergy Type Onset Date Status Beta Blockers syncope Drug Allergy Act audra Bee (uncoded) Unknown Allergy Active surgical tape (uncoded) burn Allergy Active REASON FOR VISIT Colon cancer in remission, Coronary artery disease, Diabetes mellitus, Benign prostatic hypertrophy, Obesity Medications Medication SIG (Take, Route, Frequency, Duration) Notes Start Date End Date Status Finasteride 5 MG Oral Act audra amLODIPine Besylate 2.5 MG TAKE 1 TABLET BY MOUTH EVERY DAY Oral Active Isosorbide Mononitrate ER 60 MG Oral Active Rosuvastatin Calcium 40 MG Oral Active Bisoprolol Fumarate 5 MG Oral Active Tylenol 325 MG 1 tablet as needed O rally every 6 hrs Active Aspirin Adult Low Strength 81 MG 1 tablet Orally Once a day Active metFORMIN HCl 500 MG 1 tablet with a oumou l Orally twice a day Active ZyrTEC Allergy 10 MG 1 tablet Orally Onc e a day Active Ranolazine ER 500 MG Oral Active Lipitor 20 mg 1 tablet Orally Once a day Active Zetia 10 MG 1 tablet Orally Once a day Active Metamucil 30.9 % as directed Orally o nce a day Active Social History Tobacco Use: [...] in the past year? Never (0 point) Vital Signs Temperature 97.3 degrees Fahrenheit 04/07/20 23 Blood pressure systolic 95 mm Hg 04/07/20 23 Blood pressure diastolic 60 mm Hg 023 Heart Rate 60 /min 04/07/2023 Height 69 in 04/07/2023 Weight 210 lbs 04/07/2023 BMI 31.01 kg/m2 04/07/2023 Encounters Encounter Location Date Provider Diagnosis Ivan Llanes III, MD [address] [place] [address] [place] [address] 04/07/2023 Ivan Llanes Malignant neoplasm o f colon, unspecified part of colon C18.9 ; BPH (benign prostatic hyperplasia) N40.0 ; Obesity E66.9 and Hyperlipidemia type II E78.01 Assessments Encounter Date Diagnosis (ICD Code) Assessment Notes Treat ment Notes Treatment Clinical Notes 04/07/2023 Malignant neoplasm o f colon, unspecified part of colon (ICD-10 - C18.9) There is no sign of disease recurrence or of a new primary tumor. He will continue with surveillance and periodic colonoscopies. 04/07/2023 BPH (benign prostati c hyperplasia) (ICD-10 - N40.0) He is taking 3 medications arises from sleep 4 times a night. He will follow up with primary care and urology. 04/07/2023 Obesity (ICD-10 - E66.9) He has [...] made today. I advised aggressive weight loss. Plan Of Treatment Medication Medication Name Sig Start Date Stop Date Notes Finasteride 5 MG Oral amLODIPine Besylate 2.5 MG TAKE 1 TABLET BY MOUTH EVERY DAY Oral Isosorbide Mononitrate ER 60 MG Oral Rosuvastatin Calcium 40 MG Oral Bisoprolol Fumarate 5 MG Oral Tylenol 325 MG 1 tablet as needed O rally every 6 hrs Aspirin Adult Low Strength 8 1 MG 1 tablet Orally Once a day metFORMIN HCl 500 MG 1 tablet with a oumou l Orally twice a day ZyrTEC Allergy 10 MG 1 tablet Orally Once a day Ranolazine ER 500 MG Oral Lipitor 20 mg 1 tablet Orally Once a day Zetia 10 MG 1 tablet Orally Once a day Metamucil 30.9 % as directed Orally o nce a day Pending Test Test Name Order Date PROFILE, FASTING (COMPREHENSIVE METABOLI C) 04/07/2023 LIPID PANEL 04/07/2023 PSA, TOTAL 04/07/2023 CBC w DIFF 04/07/2023 Next Appt Details Follow Up: 1 Year, Reason: O V Provider Name:Ivan Llanes, 04/04/2025 11:00:00 AM, [address] [place] [address] , [facility] Michelle, [place], [address], Progress Notes * Kartik CARRASCODOB: 7 (78 yo M)Acc No.[id number]:04/07/2023 Progress Notes Patient:?Kartik Carrasco Provider:?Ivan Llanes MD :1945???Age:78 Y???Sex:Male Aristeo e:04/07/2023 Address: [address], [facility] Pcp:Mckinley Choi MD Subjective: * Chief Complaints: * ???Colon cancer in remission Coronary artery diseaseDiabetes mellitusBenign prostatic hypertrophyObesity * HPI: ???COVID-19 Screening:?Questions?Have you experienced fever, chills, cough, shortness of breath, difficulty breathing, muscle aches, loss of taste or smell??No ?Have you been exposed to the virus within the last 10 days??No ?Have you travelled internationally in the last 10 days??No ?Have you been exposed to COVID-19 in the past??Yes ? He returns for a scheduled annual visit to follow his colon cancer. He has had no cases of pancreatic cancer, prostate cancer, colon cancer rectal cancer breast cancer or other cancer in his family. Since his last visit. He had a pacemaker installed in his left upper chest wall in July 2023. He follows with a hydroelectric plant structural engineer regularly. He has had no exertional angina. He is short of breath with exertion but this is thought to be deconditioning. * ROS:?General/Constitutional:?pain?only normal aches and pains.?Chills?denies.?Fatigue?admits.?Fever?denies.?ENT:?Decreased hearing?in both ears.?Respiratory:?Cough?denies.?Cardiovascular:?Chest pain with exertion?denies.?Dyspnea on exertion?denies.?Shortness of breath?denies.?Gastrointestinal:?Constipation?denies.?Decreased appetite?denies.?Diarrhea?denies.?Heartburn?denies.?Nausea?denies.?Rectal bleeding?denies.?Vomiting?denies.?Hematology:?bruising?denies.?petechiae?denies.?Swollen glands?none have been noted.?Genitourinary:?Frequent urination?denies.?Musculoskeletal:?Muscle aches?denies.?Painful joints?denies.?Sciatica?denies.?Weakness?denies.?Skin:?Itching?denies.?Rash?denies.?Skin lesion(s)?denies.?Neurologic:?Difficulty speaking?denies.?Dizziness?denies.?Headache?denies.?Low back pain?denies.?Psychiatric:?Depressed mood?denies.? * Medical History:? * Surgical History:?colonoscop y 2006 TKR right 1998 3 vessel CABG Jul 2011 transverse loop colostomy 2011 sigmoid colectomy rotator cuff repair 2014cataract surgery 2014Right Knee revision 02/2015right knee replacement 2015both eye cataract surgery 2017shoulder tear 2016Pacemaker 07/2022 * Hospitalization/Major Diagno stic Procedure:?Denies Past Hospitalization * Family History:?Father: dece ased 53 yrs, colon cancer, diagnosed with Cancer.?Mother: 66 yrs, breast cancer, lung cancer, depression, diagnosed with Cancer.?Paternal aunt: 2 aunts dx.? A paternal cousin has colon cancer. His sister Larissa had bladder cancer detected and treated 2012. * Social History:?Tobacco Use:?Tobacco Use/Smoking?Patient is a?nonsmoker ?Additional Findings: Tobacco Non-User?Aggressive non-smoker ???Drugs/Alcohol:?Drugs?Have you used drugs other than those for medical reasons in the past 12 months? No.?Alcohol Screen?How often did you have a drink containing alcohol in the past year??4 or more times a week (4 points) ?How many drinks did you have on a typical day when you were drinking in the past year??1 or 2 drinks (0 point) ?How often did you have 6 or more drinks on one occasion in the past year??Never (0 point) ???He has been to [facility] for 43 years. He has an occasional beer. 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 He was born [place], [place]. * Medications:?TakingMetamucil 30.9 % Powder as directed Orally once a dayZetia 10 MG Tablet 1 tablet Orally Once a dayLipitor 20 mg Tablet 1 tablet Orally Once a dayAspirin Adult Low Strength 81 MG Tablet Delayed Release 1 tablet Orally Once a dayTylenol 325 MG Tablet 1 tablet as needed Orally every 6 hrsZyrTEC Allergy 10 MG Tablet 1 tablet Orally Once a daymetFORMIN HCl 500 MG Tablet 1 tablet with a meal Orally twice a dayRanolazine ER 500 MG Tablet Extended Release 12 Hour Oral Bisoprolol Fumarate 5 MG Tablet Oral Isosorbide Mononitrate ER 60 MG Tablet Extended Release 24 Hour Oral amLODIPine Besylate 2.5 MG Tablet TAKE 1 TABLET BY MOUTH EVERY DAY Oral Rosuvastatin Calcium 40 MG Tablet Oral Finasteride 5 MG Tablet Oral Medication List reviewed and reconciled with the patientTaking Metamucil 30.9 % Powder as directed Orally once a dayTaking Zetia 10 MG Tablet 1 tablet Orally Once a dayTaking Lipitor 20 mg Tablet 1 tablet Orally Once a dayTaking Aspirin Adult Low Strength 81 MG Tablet Delayed Release 1 tablet Orally Once a dayTaking Tylenol 325 MG Tablet 1 tablet as needed Orally every 6 hrsTaking ZyrTEC Allergy 10 MG Tablet 1 tablet Orally Once a dayTaking metFORMIN HCl 500 MG Tablet 1 tablet with a meal Orally twice a dayTaking Ranolazine ER 500 MG Tablet Extended Release 12 Hour Oral Taking Bisoprolol Fumarate 5 MG Tablet Oral Taking Isosorbide Mononitrate ER 60 MG Tablet Extended Release 24 Hour Oral Taking amLODIPine Besylate 2.5 MG Tablet TAKE 1 TABLET BY MOUTH EVERY DAY Oral Taking Rosuvastatin Calcium 40 MG Tablet Oral Taking Finasteride 5 MG Tablet Oral Medication List reviewed and reconciled with the patient * Allergies:?Beta Blockers: sy ncopesurgical tape: Kimberly[Allergies Verified] Objective: * Vitals:?Ht: 69, Wt:210, BMI: 31.01, BP:95/60, HR:60, Temp:97.3, Wt-k.25. * Examination: ???General Examination: ?GENERAL APPEARANCE:?pleasant, well nourished, well developed, in no acute distress, calm and relaxed obese man.?HEAD:?atraumatic, normocephalic.?EYES:?eomi, perrla, anicteric, conjugate.?EARS:?normal.?NOSE:?septum intact.?ORAL CAVITY:?normal, unremarkable.?NECK/THYROID:?no jugular venous distention, no carotid bruit, thyroid normal.?LYMPH NODES:?no enlarged lymph nodes,spleen normal.?SKIN:?no suspicious lesions, anicteric.?HEART:?no clicks, gallops, murmurs, or rubs, regular rhythm, S1, S2 normal, no s3, or vascular bruits.?LUNGS:?clear to auscultation .?BREASTS:??no masses palpable bilaterally.?ABDOMEN:?bowel sounds normal, no ascites, no organomegaly, no mass centripital obesity, healed vertical midline surgical incision.?RECTAL EXAM:?not examined.?MUSCULOSKELETAL:?extremities unremarkable, no clubbing, cyanosis or edema.?PERIPHERAL PULSES:?normal.?NEUROLOGIC:?alert and oriented, cranial nerves 2-12 grossly intact, deep tendon reflexes 2+ symmetrical, motor strength normal upper and lower extremities, sensory exam intact.?PSYCH:?alert, oriented.? Assessment: * Assessment: 1.?Malignant neoplasm of col on, unspecified part of colon - C18.9 (Primary), There is no sign of disease recurrence or of a new primary tumor. He will continue with surveillance and periodic colonoscopies.?2.?BPH (benign prostatic hyperplasia) - N40.0, He is taking 3 medications arises from sleep 4 times a night. He will follow up with primary care and urology.?3.?Obesity - E66.9, He has lost a pound. We discussed diet and nutrition today. We reviewed his weight loss strategy. We made a plan to lose weight at a rate of one half of a pound per week.?4.?Hyperlipidemia type II - E78.01, His lipids are stable and no change in his regimen was made today. I advised aggressive weight loss.? Plan: * Treatment: 2.?BPH (benign prostatic hyp erplasia)?LAB: PROFILE, FASTING (COMPREHENSIVE METABOLIC) ?LAB: LIPID PANEL ?LAB: PSA, TOTAL ?LAB: CBC w DIFF 3.?Obesity?LAB: PROFILE, FASTING (COMPREHENSIVE METABOLIC) ?LAB: LIPID PANEL ?LAB: PSA, TOTAL ?LAB: CBC w DIFF 4.?Hyperlipidemia type II?LAB: PROFILE, FASTING (COMPREHENSIVE METABOLIC) ?LAB: LIPID PANEL ?LAB: PSA, TOTAL ?LAB: CBC w DIFF 5.?Others? Continue metFORMIN HCl Tablet, 500 MG, 1 tablet with a meal, Orally, twice a day;?Continue Ranolazine ER Tablet Extended Release 12 Hour, 500 MG, Oral;?Continue Bisoprolol Fumarate Tablet, 5 MG, Oral;?Continue Isosorbide Mononitrate ER Tablet Extended Release 24 Hour, 60 MG, Oral;?Continue amLODIPine Besylate Tablet, 2.5 MG, TAKE 1 TABLET BY MOUTH EVERY DAY, Oral;?Continue Rosuvastatin Calcium Tablet, 40 MG, Oral;?Continue Finasteride Tablet, 5 MG, Oral.?? * Procedure Codes:? * Preventive Medicine:? ??Counseling:?Care goal follow-up plan:?Counseling for abnormal BMI given?Yes ?Above Normal BMI Follow-up?Dietary management education, guidance, and counseling, Dietary needs education, Exercise promotion: strength training * Follow Up:?1 Year (Reason: O V) * Images: * Sign off status: Completed true * Provider:?Ivan Llanes MD Date:?03/10 Generated for Ольгаi ng/Nellg/eTransmitting on:?07/20/2024 10:10 AM EST History and Physical Notes * HPI (History of Present Illness) Category Sub-Category Detail Notes COVID-19 Screening Questions Have you had any new onset fever, chills, cough, congestion, sore throat, shortness of breath, muscle aches?: No Have you been exposed to the virus withi n the last 10 days?: No Have you travelled internationally in [facility] last 10 days?: No Have you been exposed to COVID-19 in the past?: Yes Examination Category Sub-Category Detail Notes General Examination GENERAL APPEARANCE: pleasant , well nourished, well developed, in no acute distress, calm and relaxed obese man HEAD: atraumatic, normocep halic EYES: eomi, perrla, anicte jeramy, conjugate EARS: normal NOSE: septum intact NECK/THYROID: no jugular venous di stention, no carotid bruit, thyroid normal HEART: no clicks, gallops, murmurs, or rubs, regular rhythm, S1, S2 normal, no s3, or vascular bruits LUNGS: clear to auscultatio n ABDOMEN: bowel sounds normal, no ascites, no organomegaly, no mass centripital obesity, healed vertical midline surgical incision NEUROLOGIC: alert and oriented, cranial nerves 2-12 grossly intact, deep tendon reflexes 2+ symmetrical, motor strength normal upper and lower extremities, sensory exam intact SKIN: no suspicious lesion s, anicteric PERIPHERAL PULSES: normal BREASTS: no masses palpable b ilaterally MUSCULOSKELETAL: extremities unremark able, no clubbing, cyanosis or edema LYMPH NODES: no enlarged lymph no max,spleen normal RECTAL EXAM: not examined PSYCH: alert, oriented ORAL CAVITY: normal, unremarkable
--- OUTSIDE RECORDS SUMMARY | 2024-07-20 10:10 | XMS_ITS ---
Author Organization Ivan Llanes III, MD Address [address] [place] [address] Care Team Providers Care Lumber Mover Name Role Phone Mckinley Choi MD Primary Care Provider Unavaila Ivan Cisse Unavailable [phone] Allergies Allergen (clinical drug ingredient) Drug/Non Drug [...] Provider Diagnosis Ivan Llanes III, MD [address] [place] [address] [place] [address] 04/06/2024 Ivan Llanes Malignant neoplasm o f colon, unspecified part of colon C18.9 ; BPH (benign prostatic hyperplasia) N40.0 ; Osteoarthritis of multiple joints, unspecified osteoarthritis type M15.9 ; Coronary artery disease involving [place] coronary artery without angina pectoris, unspecified whether [place] or transplanted heart I25.10 and Obesity E66.9 [...] good relief. 04/06/2024 Coronary artery disease involving [place] coronary artery without angina pectoris, unspecified whether [place] or transplanted heart (ICD-10 - I25.10) Since [...] Follow Up: 1 Year, Reason: o v Provider Name:Ivan Llanes, 04/04/2025 11:00:00 AM, [address] [place] [address] [address] [place], [place], [address], Progress Notes * Kartik CARRASCODOB: [birth year] (79 yo M)Acc No.[id number]:04/06/2024 Progress Notes Patient:?Kartik Carrasco Provider:?Ivan Llanes MD :1945???Age:79 Y???Sex:Male Aristeo e:04/06/2024 Address: [address], [facility], [id number] Pcp:Mckinley Choi MD Subjective: * Chief Complaints: * ???History of colon cancerBe nign prosthetic hypertrophyOsteoarthritisCoronary arteryHyperlipidemia * HPI: ???COVID-19 Screening:? He returns for ongoing surveillance of his colon cancer. Since his last visit there have been no further cases of cancer in his family. His appetite is good. His weight is stable. He has no abdominal complaints. There was no sign of recurrent disease or new primary. His last colonoscopy was in 2020 and was negative. This is done by Dr. Pedro. ?Questions?Have you experienced fever, chills, cough, sore throat, shortness of breath, difficulty breathing, muscle aches, loss of taste or smell??No ?Have you been exposed to the virus within the last 10 days??No ?Have you travelled internationally in the last 10 days??No ?Have you been exposed to COVID-19 in the past??Yes * ROS:?General/Constitutional:?pain?only normal aches and pains.?Chills?denies.?Fatigue?admits.?Fever?denies.?ENT:?Decreased hearing?denies.?Respiratory:?Cough?denies.?Cardiovascular:?Chest pain with exertion?denies.?Dyspnea on exertion?denies.?Shortness of breath?denies.?Gastrointestinal:?Constipation?denies.?Decreased appetite?denies.?Diarrhea?denies.?Heartburn?denies.?Nausea?denies.?Rectal bleeding?denies.?Vomiting?denies.?Hematology:?bruising?denies.?petechiae?denies.?Swollen glands?none have been noted.?Genitourinary:?Frequent urination?once a night.?Musculoskeletal:?Muscle aches?denies.?Painful joints?denies.?Sciatica?denies.?Weakness?denies.?Skin:?Itching?denies.?Rash?denies.?Skin lesion(s)?denies.?Neurologic:?Difficulty speaking?denies.?Dizziness?denies.?Headache?denies.?Low back pain?denies.?Psychiatric:?Depressed mood?denies.? * Medical History:? * Surgical History:?colonoscop y 2006 TKR right 1999 3 vessel CABG Jul 2011 transverse loop colostomy 2011 sigmoid colectomy rotator cuff repair 2014cataract surgery 2014Right Knee revision 02/2015right knee replacement 2016bo eye cataract surgery 2017shoulder tear 2016Pacemaker 07/2022 [...] is a?nonsmoker ?Additional Findings: Tobacco Non-User?Aggressive non-smoker ???He has been to [facility] for 43 years. He has an occasional beer. 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 He was born [place], [place]. * Medications:?TakingNitroglyc mani 0.4 MG Tablet Sublingual as directed Sublingual [...] and reconciled with the patient * Allergies:?Beta Adrenergic B lockers: Sofia StingTape: maxwell[Allergies Verified] Objective: * Vitals:?Ht: 69, Wt:206, BMI: 30.42, BP:121/69, HR:63, Temp:97.5, Wt-k.44. * Examination: ???General Examination: ?GENERAL APPEARANCE:?pleasant, well nourished, well developed, in no acute distress, calm and relaxed , obese , man.?HEAD:?atraumatic, normocephalic.?EYES:?eomi, perrla, anicteric, conjugate.?EARS:?normal.?NOSE:?septum intact.?ORAL CAVITY:?normal, unremarkable.?NECK/THYROID:?no jugular venous distention, no carotid bruit, thyroid normal.?LYMPH NODES:?no enlarged lymph nodes,spleen normal.?SKIN:?no suspicious lesions, anicteric.?HEART:?no clicks, gallops, murmurs, or rubs, regular rhythm, S1, S2 normal, no s3, or vascular bruits.?LUNGS:?clear to auscultation .?BREASTS:??no masses palpable bilaterally.?ABDOMEN:?bowel sounds normal, no ascites, no organomegaly, no mass , centripital obesity.?RECTAL EXAM:?not examined.?MUSCULOSKELETAL:?extremities unremarkable, no clubbing, cyanosis or edema.?PERIPHERAL PULSES:?normal.?NEUROLOGIC:?alert and oriented, cranial nerves 2-12 grossly intact, deep tendon reflexes 2+ symmetrical, motor strength normal upper and lower extremities, sensory exam intact.?PSYCH:?alert, oriented , cooperative with exam , cognitive function intact , thought process logical, goal directed , speech clear.? Assessment: * Assessment: 1.?BPH (benign prostatic hyp erplasia) - N40.0, He is taking 3 medications arises from sleep 4 times a night. He will follow up with primary care and urology.?2.?Malignant neoplasm of colon, unspecified part of colon - C18.9, There is no sign of disease recurrence or of a new primary tumor. He will continue with surveillance and periodic colonoscopies.?3.?Osteoarthritis of multiple joints, unspecified osteoarthritis type - M15.9, He has mild symptoms arthritis in his knees. He is taking ibuprofen with good relief.?4.?Coronary artery disease involving [place] coronary artery without angina pectoris, unspecified whether [place] or transplanted heart - I25.10, Since his last visit he has had no episodes of angina with exertion or at rest. There is no need to change his regimen at this time.?5.?Obesity - E66.9, He has lost 3 pounds. We discussed diet and nutrition today. We reviewed his weight loss strategy. We made a plan to lose weight at a rate of one half of a pound per week.? Plan: * Treatment: * Procedure Codes:? * Preventive Medicine:? ??Counseling:?Care [...] or Other reason not done * Follow Up:?1 Year (Reason: o v) * Images: * Sign off status: Completed true * Provider:?Ivan Llanes MD Date:?03/10 Generated for Liam bustillo/Dajuan/eTshalinismitting on:?07/20/2024 10:09 AM EST History and Physical Notes * HPI (History of Present Illness) Category Sub-Category Detail Notes COVID-19 Screening Questions Have you had any new onset fever, chills, cough, congestion, sore throat, shortness of breath, muscle aches?: No Have you been exposed to the virus withi n the last 10 days?: No Have you travelled internationally in [facility] last 10 days?: No Have you [...]
[2024-07-20 10:15] VITALS: BP 110/64; PULSE 60; O2SAT 97; BMI 29.6
--- NOTE | 2024-07-20 10:15 | A.OFFVIS_ITS ---
Vital Signs 07/20/24 10:15 Height 5 ft 9 in Weight 200 lb 6 oz BMI 29.6 BP 110/64 Blood Pressure Location Rt brachial Position Sitting Pulse 60 Pulse Source Pulse Oximeter Pulse Oximetry (%) 97 Oxygen Delivery Method Room Air Intake Visit Reasons: Shortness of breath Allergies BERNABE Inhibitors [BERNABE INHIBITORS] Allergy (Intermediate, Verified 07/20/24 10:17) DEPRESSION latex [LATEX] Allergy (Intermediate, Verified 07/20/24 10:17) RASH terazosin Allergy (Intermediate, Verified 07/20/24 10:17) hives, swollen lips and hoarseness pravastatin [Pravachol] Allergy (Unknown, Verified 07/20/24 10:17) unknown bee pollen [bee stings] Adverse Reaction (Severe, Verified 07/20/24 10:17) Anaphylaxis Beta-Blockers (Beta-Adrenergic Bloc [BETA-BLOCKERS (BETA-ADRENERGIC BLOC] Adverse Reaction (Intermediate, Verified 07/20/24 10:17) DECREASED HR, DEPRESSION amoxicillin Allergy (Intermediate, Uncoded 07/20/24 10:17) hives, swollen lips, and hoarseness cephlex: levofloxacin Allergy (Intermediate, Uncoded 07/20/24 10:17) hives, swollen lips, and hoarseness clindomycin Allergy (Intermediate, Uncoded 07/20/24 10:17) hives, swollen lips, and hoarseness HPI HPI Shortness of breath: Details: Kartik is a pleasant 79 year old male, never smoker, with underlying h/o adenocarcinoma of colon 2010, hypertension, hyperlipidemia, diabetes, severe CAD, coronary artery bypass grafting 1998, ischemic cardiomyopathy, pacemaker for SSS, and supraventricular tachycardia. Prior cardiac evaluation revealed prior LVEF 35-40%, mild aortic regurgitation, RVSP 34 . Cardiac cath on 02/02/24 revealed PA mean 21 and wedge pressure 12 mmHg, not suggestive of pulmonary hypertension. Prior PFT revealed normal spirometry and mildly decreased DLCO. At the last visit he had discontinued isosorbide and reports resolution of respiratory symptoms, however over the last few weeks has noticed episodes of dyspnea when exerting himself, pushing a shopping carriage or snowblower. Otherwise does not have respiratory symptoms when engaging in exercise 3x/week. He denies any cough, wheezing or chest tightness. Today he presents to review chest CT results. [facility] Medical History (Updated 05/22/24 @ 14:40 by Marquise Espinoza MD) Ischemic cardiomyopathy Pacemaker (~2021) Bradycardia (~2021) History of COVID-19 BPH (benign prostatic hyperplasia) Hypertension Obesity Hyperlipidemia associated with type 2 diabetes mellitus Tubular adenoma of colon COVID-19 vaccine administered Diabetes mellitus History of colon cancer (~2010) PVC (premature ventricular contraction) SVT (supraventricular tachycardia) CAD (coronary artery disease) Surgical History History of pacemaker (~2021) History of coronary artery bypass graft x 3 (~1998) History of hernia repair (~2012) History of colonoscopy History of left knee surgery (~2003) History of right knee surgery History of colostomy (~2010) History of partial colectomy (~2011) History of tonsillectomy History of repair of rotator cuff History of cataract surgery (~2013) History of cardiac cath History of colostomy reversal (~2011) Family History Father Cancer, colon Mother Cancer of breast Cancer of lung Sister Cancer Social History Household Members: Spouse Housing: House Are you a primary child caregiver private home to a significant other at home: No Do you presently have visiting nurse or other home services: No Alcohol intake: current Alcohol intake frequency: 0-2 drinks per day Comment: previously medicated with po tylenol Patient Tobacco Use Status: Never used Tobacco Tobacco use type: Cigarette e-Cigarette/Vaping Use: Never Used Second Hand Smoke Exposure: No service: No Current occupational status: retired Cognitive needs: No Hearing needs: No Vision needs: Yes (glasses) Review of Systems Const Denies chills, Denies excessive sweating, Denies fever(s), Denies headache(s) and Denies night sweats Eyes Denies dry eyes, Denies irritation and Denies itchy eyes ENT Reports Normal hearing present, Denies headache(s), Denies nasal congestion, Denies nasal discharge, Denies post nasal drip and Denies sore throat Card Denies chest pain, Denies chest pain at rest, Denies chest pain with activity, Denies claudication, Denies leg edema, Denies orthopnea and Denies paroxysmal nocturnal dyspnea Resp Denies chest congestion, Denies cough, Denies excessive phlegm production, Denies pain on inspiration, Denies pain with cough, Denies stridor and Denies wheezing Musc Denies myalgias Neuro Reports Normal hearing present and Denies headache(s) Endo Denies excessive sweating Cornel/Lymph Denies lymphadenopathy Aller/Immun Denies itchy eyes, Denies seasonal rhinorrhea and Denies wheezing Physical Exam Vital Signs: Last Vital Signs Pulse 60 07/20/24 10:15 BP 110/64 07/20/24 10:15 Pulse Ox 97 07/20/24 10:15 Oxygen Delivery Method Room Air 07/20/24 10:15 BMI result Body Mass Index 29.6 Const General: cooperative, healthy appearing, comfortable, no acute distress, well developed and alert Nutritional Appearance: obese Orientation/consciousness: patient oriented x3 Limitations: no limitations HEENT Head: Yes normal to inspection, Yes normocephalic and Yes atraumatic Ears: hearing grossly normal bilaterally and external ears normal Eyes General: appearance normal, both eyes and all related structures Eyelids: Yes eyelids normal Sclerae: sclerae normal EOM: EOMs intact bilaterally Neck Neck: Yes normal visual inspection and Yes no lymphadenopathy Lymphatic: no lymphadenopathy noted Chest Chest palpation & inspection: normal inspection of the chest Resp Effort & Inspection: normal respiratory effort, able to speak in complete sentences, no audible wheezes, no cough, no stridor, not tachypneic, no tripod positioning and no use of accessory muscles Auscultation: clear to auscultation bilaterally Cardio Jugular venous distension: no JVD Rate: regular rate Rhythm: regular rhythm Skin Other: warm, dry General skin exam: no rashes or lesions noted Neuro General: patient oriented x3 Cranial nerves: Yes Normal hearing present Cognition (Neuro): normal cognition Gait exam (Neuro): Normal gait present Extrem General: Yes normal to inspection, Yes capillary refill normal, Yes no clubbing, cyanosis or edema and Yes no pedal edema Psych Appearance: grossly normal and well kempt Speech and movement: Normal speech and movement present and Clear speech present Affect: normal affect Attitude: cooperative Thought process: Normal thought process present Thought content: Normal thought content present Insight: Good insight present (Psych) Judgement: Good judgement present (Psych) Assessment & Plan Assessment & Plan (1) Dyspnea: Code(s): R06.00 - Dyspnea, unspecified Category: Medical (2) Decreased diffusion capacity: Code(s): R94.2 - Abnormal results of pulmonary function studies Category: Medical (3) Cardiomyopathy: Code(s): I42.9 - Cardiomyopathy, unspecified Category: Medical Plan Encouraged patient to use albuterol MDI prior to engaging in activity. May have a cardiac component contributing to symptoms and has an upcoming visit with cardiology to discuss. He is aware to call if symptoms change. Patient had chest CT performed, unfortunately not officially read by radiology, will call with results when able. All questions were answered and patient is in agreement of plan. Will follow up in 6-8 weeks or sooner if needed. Medications: New albuterol sulfate 90 mcg/actuation 2 puffs inhalation Q4-6H PRN 1 ea 6RF shortness of breath or wheezing Coding Level of Care Code Est Pt Level 3 (24830) Diagnoses Dyspnea R06.00 Decreased diffusion capacity R94.2 Cardiomyopathy I42.9
== END 2024-07-20 10:55 | disposition home or self-care (01) ==
PROVIDERS: PCP Internal Medicine; Visit Provider Nurse Practitioner Family
DX: R06.00 Dyspnea, unspecified (principal); R94.2 Abnormal results of pulmonary function studies; I42.9 Cardiomyopathy, unspecified
CPT/HCPCS: 99213

== ENCOUNTER → 2024-07-20 10:06 | Outpatient (BNVA) | payer MEDICARE, SELFPAY ==
[2023-03-31 07:35] VITALS: BP 100/58; BP 126/68
[2023-07-20 15:41] VITALS: BP 90/50; BMI 30.9
== END ==
PROVIDERS: PCP Internal Medicine; Visit Provider Nurse Practitioner Family
DX: R06.00 Dyspnea, unspecified (principal); R94.2 Abnormal results of pulmonary function studies; I42.9 Cardiomyopathy, unspecified
CPT/HCPCS: 99212

== ENCOUNTER 2024-07-30 14:02 | Emergency (ER) | payer MEDICARE, SELFPAY ==
[2023-03-31 07:35] VITALS: BP 100/58; BP 126/68
[2023-07-20 15:41] VITALS: BP 90/50; BMI 30.9
--- NOTE | ~2024-07-30 | XR_ITS ---
EXAMINATION: XR CHEST CLINICAL INFORMATION: Pneumonia? SOB COMPARISON: 03/21/2024 TECHNIQUE: Frontal view of the chest was obtained. FINDINGS: No focal consolidation, pulmonary edema, or pleural effusion. Stable cardiomediastinal silhouette. Dual-lead pacer. XR/XR chest 1V IMPRESSION: No acute pulmonary disease. Electronically signed by: Mukund Wing MD 07/30/2024 06:02 PM [facility]
--- OUTSIDE RECORDS SUMMARY | 2024-07-30 14:04 | XMS_ITS ---
Author Organization Ivan Llanes III, MD Address [address] [place] [address] Care Team Providers Care Tack Maker Name Role Phone Mckinley Choi MD Primary Care Provider Unavaila Ivan Cisse Unavailable [phone] Allergies Allergen (clinical drug ingredient) Drug/Non Drug [...] Date Provider Diagnosis Ivan Llanes III, MD [address] [place] [address] [place] [address] 04/07/2023 Ivan Llanes Malignant neoplasm o f [...] V Provider Name:Ivan Llanes, 04/04/2025 11:00:00 AM, [address] [place] [address] , [place], [place], [address], Progress Notes * Kartik CARRASCODOB: [birth year] (78 yo M)Acc No.[id number]:04/07/2023 Progress Notes Patient:?Kartik Carrasco Provider:?Ivan Llanes MD :1945???Age:78 Y???Sex:Male Aristeo e:04/07/2023 Address: [address], [facility] Pcp:Mckinley Choi MD Subjective: * Chief [...] in July 2023. He follows with a overlock elastic attacher regularly. He has had no exertional angina. 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 He was born [place], [place]. * Medications:?TakingMetamucil 30.9 % Powder as [...] Provider:?Ivan Llanes MD Date:?03/10 Generated for Ольгаi ng/Dajuan/eTransmitting on:?07/30/2024 02:03 PM EST History and Physical Notes * HPI (History of Present Illness) Category Sub-Category Detail Notes COVID-19 Screening Questions Have you had any new onset fever, chills, cough, congestion, sore throat, shortness of breath, muscle aches?: No Have you been exposed to the virus withi n the last 10 days?: No Have you travelled internationally in [facility] last 10 days?: No Have you [...]
--- OUTSIDE RECORDS SUMMARY | 2024-07-30 14:04 | XMS_ITS | Patient Health Record ---
Author Organization Ivan Llanes III, MD Address [address] [place] [address] Care Team Providers Care Corn Husk Baler Name Role Phone Mckinley Choi MD Primary Care Provider Unavaila Ivan Cisse Unavailable [phone] Allergies Allergen (clinical drug ingredient) Drug/Non Drug [...] Problem Status W/U Status Risk Notes Problem [id number] Obesity (E66.9) Active confirmed He has lost 3 pounds. We discussed diet and nutrition today. We reviewed his weight loss strategy. We made a plan to lose weight at a rate of one half of a pound per week. Problem [id number] BPH (benign prostatic hyperplasia) (N40.0) Active confirmed He is taking 3 medications arises from sleep 4 times a night. He will follow up with primary care and urology. Problem [id number] Osteoarthritis of multiple joints, unspecified osteoarthritis type (M15.9) Active confirmed He has mild symptoms arthritis in his knees. He is taking ibuprofen with good relief. Problem 311348929 Erythrocytosis (D75.1) Active confirmed Numerous recent CBC determinations show his hematocrit to be normal. Problem 305977245 Coronary artery disease involving [place] coronary artery without angina pectoris, unspecified whether [place] or transplanted heart (I25.10) Active confirmed Since his [facility] visit he has had no episodes of angina with exertion or at rest. There is no need to change his regimen at this time. Problem 742651630 Malignant neoplasm of colon, unspecified part of colon (C18.9) Active confirmed There is no sign of disease recurrence or of a new primary tumor. He will continue with surveillance and periodic colonoscopies. Problem 959697314 Hyperlipidemia type II (E78.01) Active confirmed His [...] Date Provider Diagnosis Ivan Llanes III, MD [address] [place] [address] [address] [place], [place] [address] 04/06/2024 Ivan Llanes Malignant neoplasm o f colon, unspecified part of colon C18.9 ; BPH (benign prostatic hyperplasia) N40.0 ; Osteoarthritis of multiple joints, unspecified osteoarthritis type M15.9 ; Coronary artery disease involving [place] coronary artery without angina pectoris, unspecified whether [place] or transplanted heart I25.10 and Obesity E66.9 [...] 04/06/2024 Coronary artery disease involving [place] coronary artery without angina pectoris, unspecified whether [place] or transplanted heart (ICD-10 - I25.10) Since [...] Details Provider Name:Ivan Llanes, 04/04/2025 11:00:00 AM, [address] [place] [address] [address] [place], [place], [address], Insurance Providers Payer Name Payer Address Payer Phone Subscriber Number Group Number Insured Name Patient Relationship to Insured Coverage Start Date Coverage End Date MEDICARE NGS [address] [place] [phone] [id number] Kartik Ortiz Self - patient is the insured [facility] [address] [place], [place] [phone] [id number] Kartik Ortiz Self - patient is the insured Medical (General) History Medical History History ICD Code coronary artery disease CABG 1998 hyperlipidemia 09/2011 Stage IIa adenocarcinoma of sigmo id colon [id number] bph Surgical History Surgery Date(Month/Year) Pacemaker 07/2022 shoulder tear 2016 both eye cataract surgery 2017 right knee replacement 2016 Right Knee revision 02/2015 cataract surgery 2014 rotator cuff repair 2013 2011 sigmoid colectomy Jul 2011 transverse loop colostomy 1998 3 vessel CABG TKR right colonoscopy 2005
[2024-07-30 14:18] VITALS: BP 103/63; PULSE 64; RESP 16; TEMP 36.6; O2SAT 97; BMI 29.3
--- NOTE | 2024-07-30 14:22 | ECG_ITS ---
Test Reason : SOB Blood Pressure : / mmHG Vent. Rate : 072 BPM Atrial Rate : 060 BPM P-R Int : 232 ms QRS Dur : 080 ms QT Int : 402 ms P-R-T Axes : 000 -23 172 degrees QTc Int : 440 ms Atrial-paced rhythm with prolonged AV conduction with frequent Premature ventricular complexes Low voltage QRS Inferior infarct , age undetermined Cannot rule out Anterior infarct , age undetermined Abnormal ECG When compared with ECG of 10-JUN-2017 16:20, Electronic atrial pacemaker has replaced Sinus rhythm Nonspecific T wave abnormality now evident in Inferior leads Nonspecific T wave abnormality, worse in Lateral leads Referred By: Mac Plascencia Electronically Signed By:Nickolas Blackwood
--- NOTE | 2024-07-30 14:23 | ED_ITS ---
HPI - General Adult General Chief complaint: Dyspnea Stated complaint: Weakness, SOB History of Present Illness HPI narrative: Patient left before completion of treatment by ED provider Related Data Home Medications ?Medication ?Instructions ?Recorded ?Confirmed aspirin 81 mg tablet,delayed 81 mg PO DAILY 05/22/20 06/06/24 release (Adult Low Dose Aspirin) diphenhydramine HCl 25 mg tablet 25 mg PO TID PRN Anxiety 05/22/20 06/06/24 (Benadryl Allergy) fluticasone propionate 50 1 spray intranasal DAILY 05/22/20 06/06/24 mcg/actuation nasal spray,suspension (Flonase Allergy Relief) ezetimibe 10 mg tablet (Zetia) 10 mg PO DAILY 12/28/23 06/06/24 meloxicam 15 mg tablet 15 mg PO DAILY 05/09/24 06/06/24 Previous Rx's ?Medication ?Instructions ?Recorded blood-glucose meter (OneTouch #1 ea 10/27/20 Verio Meter) lancets 33 gauge (OneTouch Delica #100 ea 10/30/20 Lancets) nitroglycerin 0.4 mg sublingual 0.4 mg sublingual Q5M PRN Chest 11/22/23 tablet Pain #25 tabs blood sugar diagnostic (OneTouch #100 ea 03/15/24 Verio test strips) rosuvastatin 40 mg tablet 40 mg PO DAILY #90 tabs 03/26/24 metformin 500 mg tablet,extended 500 mg PO BID #180 tabs 06/08/24 release 24hr (osmotic) finasteride 5 mg tablet 5 mg PO DAILY #90 tabs 06/21/24 albuterol sulfate 90 mcg/actuation 2 puff inhalation Q4-6H PRN 07/20/24 aerosol inhaler shortness of breath or wheezing #1 ea bisoprolol fumarate 5 mg tablet 2.5 mg (1/2 x 5 mg) PO DAILY #45 07/25/24 tabs Allergies Allergy/AdvReac Type Severity Reaction Status Date / Time BERNABE Inhibitors Allergy Intermediate DEPRESSION Verified 07/30/24 14:20 [BERNABE INHIBITORS] latex [LATEX] Allergy Intermediate RASH Verified 07/30/24 14:20 terazosin Allergy Intermediate hives, Verified 07/30/24 14:20 swollen lips and hoarseness pravastatin [Pravachol] Allergy Unknown unknown Verified 07/30/24 14:20 bee pollen [bee stings] AdvReac Severe Anaphylaxis Verified 07/30/24 14:20 Beta-Blockers AdvReac Intermediate DECREASED Verified 07/30/24 14:20 (Beta-Adrenergic Bloc HR, [BETA-BLOCKERS DEPRESSION (BETA-ADRENERGIC BLOC] amoxicillin Allergy Intermediate hives, Uncoded 07/20/24 10:17 swollen lips, and hoarseness cephlex: levofloxacin Allergy Intermediate hives, Uncoded 07/20/24 10:17 swollen lips, and hoarseness clindomycin Allergy Intermediate hives, Uncoded 07/20/24 10:17 swollen lips, and hoarseness PMFSH Past Medical History Medical History (Updated 07/31/24 @ 11:34 by ELIANE Amezquita) Ischemic cardiomyopathy Pacemaker (~2021) Bradycardia (~2021) History of COVID-19 BPH (benign prostatic hyperplasia) Hypertension Obesity Hyperlipidemia associated with type 2 diabetes mellitus Tubular adenoma of colon COVID-19 vaccine administered Diabetes mellitus History of colon cancer (~2010) PVC (premature ventricular contraction) SVT (supraventricular tachycardia) CAD (coronary artery disease) Surgical History History of pacemaker (~2021) History of coronary artery bypass graft x 3 (~1998) History of hernia repair (~2012) History of colonoscopy History of left knee surgery (~2003) History of right knee surgery History of colostomy (~2010) History of partial colectomy (~2011) History of tonsillectomy History of repair of rotator cuff History of cataract surgery (~2013) History of cardiac cath History of colostomy reversal (~2011) Family History Family History Father Cancer, colon Mother Cancer of breast Cancer of lung Sister Cancer Social History Social History Household Members: Spouse Housing: House Are you a primary foster care case manager to a significant other at home: No Do you presently have visiting nurse or other home services: No Alcohol intake: current Alcohol intake frequency: 0-2 drinks per day Comment: previously medicated with po tylenol Patient Tobacco Use Status: Never used Tobacco Tobacco use type: Cigarette e-Cigarette/Vaping Use: Never Used Second Hand Smoke Exposure: No service: No Current occupational status: retired Cognitive needs: No Hearing needs: No Vision needs: Yes (glasses) Physical Exam ED Vital Signs: Vital Signs - 24 hr 07/30/24 14:18 Temperature 97.8 F Pulse Rate 64 Respiratory Rate 16 Blood Pressure 103/63 Pulse Oximetry 97 Oxygen Delivery Method Room Air BMI result Body Mass Index 29.3 Course Course Course Narrative: RME: 79-year-old male presents to ED for shortness of breath. Patient presently has no chest pain. SOB since Tuesday. Labs EKG chest x-ray ordered. Medical Decision Making Lab Data 07/30/24 14:47 07/30/24 14:47 Labs: Lab Results 07/30/24 Range/Units 14:47 WBC 7.1 (4.8-10.8) X10*3/uL RBC 5.34 (4.60-5.80) X10*6/uL Hgb 15.7 (14.0-18.0) g/dl Hct 47.6 (42.0-52.0) % MCV 89.1 (80.0-98.0) fL MCH 29.4 (27.0-33.0) pg MCHC 33.0 (31.0-36.0) g/dl RDW 13.3 (11.0-16.0) % Plt Count 161 (160-400) X10*3/uL MPV 10.2 (9.4-12.4) fL Immature Gran % (Auto) 0.6 H (0.0-0.4) % Neut % (Auto) 70.4 (45-73) % Lymph % (Auto) 17.7 L (20-40) % [place] % (Auto) 9.6 (2-11) % Eos % (Auto) 1.4 (0-4) % Baso % (Auto) 0.3 (0-2) % Lymph # (Auto) 1.3 (1.2-4.9) X10*3/uL [place] # (Auto) 0.7 (0.1-1.2) X10*3/uL Eos # (Auto) 0.1 (0.0-0.4) X10*3/uL Baso # (Auto) 0.0 (0.0-0.2) X10*3/uL Abs Immat Gran (auto) 0.04 H (0.00-0.03) X10*3/uL Absolute Neuts (auto) 5.0 (2.0-8.3) x10*3/uL Absolute Nucleated RBC 0.000 (0.0-0.012) X10*3/uL Nucleated RBC % (auto) 0.0 (0.0-0.2) /100WBC PT 11.3 (10.9-12.4) SEC INR 1.0 (0.9-1.1) APTT 28.5 (26.0-36.8) SEC Sodium 140 (135-145) mmol/L Potassium 4.2 (3.3-5.1) mmol/L Chloride 106 (96-108) mmol/L Carbon Dioxide 25 (22-29) mmol/L Anion Gap 13 (12-20) BUN 28 H (9-16) mg/dL Creatinine 1.16 (0.5-1.4) mg/dL Estim Creat Clear Calc 59.1 Estimated GFR > 60 Random Glucose 139 H (60-115) mg/dL Calcium 9.0 (8.4-10.2) mg/dL Total Bilirubin 0.8 (0.0-1.0) mg/dL AST 26 (5-37) U/L ALT 25 (0-40) U/L Alkaline Phosphatase 75 (39-117) U/L Troponin I High Sens 4.1 (<3.5-35.0) ng/L Total Protein 6.9 (6.5-8.0) g/dL Albumin 3.8 (3.5-5.0) g/dL Influenza Type A (PCR) NEGATIVE (Negative) Influenza Type B (PCR) NEGATIVE (Negative) RSV RNA Qual (PCR) NEGATIVE (Negative) SARS-CoV-2 RNA (RT-PCR) NEGATIVE (Negative) Discharge Plan Discharge Clinical Impression: Acute dyspnea Patient Disposition: Left W/O Completing Treatment Prescriptions: No Action (DME) blood-glucose meter [OneTouch Verio Meter] Misc See Rx Instructions .ROUTE .MEDSUPPLY Qty: 1 0RF Rx Instructions: to check blood sugars once a day (DME) lancets [OneTouch Delica Lancets] 33 gauge misc See Rx Instructions .ROUTE .MEDSUPPLY Qty: 100 8RF Rx Instructions: to check blood sugars once a day nitroglycerin 0.4 mg tablet, sublingual 0.4 mg sublingual Q5M PRN (Reason: Chest Pain) Qty: 25 1RF Rx Instructions: do not exceed 3 doses per episode (DME) OneTouch Verio test strips Strip See Rx Instructions .ROUTE .MEDSUPPLY Qty: 100 2RF Rx Instructions: 1 Strip Once a Day rosuvastatin 40 mg tablet 40 mg PO DAILY Qty: 90 3RF metformin 500 mg tablet extended release 24hr 500 mg PO BID Qty: 180 1RF finasteride 5 mg tablet 5 mg PO DAILY Qty: 90 0RF bisoprolol fumarate 5 mg tablet 2.5 mg PO DAILY Qty: 45 3RF aspirin [Adult Low Dose Aspirin] 81 mg tablet,delayed release (DR/EC) 81 mg PO DAILY fluticasone propionate [Flonase Allergy Relief] 50 mcg/actuation spray,suspension 1 spray intranasal DAILY Rx Instructions: administer into each nostril diphenhydramine HCl [Benadryl Allergy] 25 mg tablet 25 mg PO TID PRN (Reason: Anxiety) ezetimibe [Zetia] 10 mg tablet 10 mg PO DAILY meloxicam 15 mg tablet 15 mg PO DAILY albuterol sulfate 90 mcg/actuation HFA aerosol inhaler 2 puff inhalation Q4-6H PRN (Reason: shortness of breath or wheezing) Qty: 1 6RF Discharge Date/Time: 07/30/24 18:35
[2024-07-30 14:53] LABS: MANUAL DIFF FLAG NO
[2024-07-30 14:56] LABS: Basophils Percent Auto 0.3 % (0-2); Eosinophils Absolute Auto 0.1 X10*3/uL (0.0-0.4); Eosinophils Percent Auto 1.4 % (0-4); Hematocrit 47.6 % (42.0-52.0); Hemoglobin 15.7 g/dl (14.0-18.0); Imm Gran Abs Auto 0.04 X10*3/uL (0.00-0.03); Imm Gran Pct Auto 0.6 % (0.0-0.4); Lymphocytes Absolute Auto 1.3 X10*3/uL (1.2-4.9); Lymphocytes Percent Auto 17.7 % (20-40); Mean Corpuscular Hemoglobin 29.4 pg (27.0-33.0); Mean Corpuscular Volume 89.1 fL (80.0-98.0); Mean Platelet Volume 10.2 fL (9.4-12.4); Monocytes Absolute Auto 0.7 X10*3/uL (0.1-1.2); Monocytes Percent Auto 9.6 % (2-11); Neutrophils Percent Auto 70.4 % (45-73); Platelet Count 161 X10*3/uL (160-400); Red Blood Count 5.34 X10*6/uL (4.60-5.80); Red Cell Distribution Width 13.3 % (11.0-16.0); White Blood Count 7.1 X10*3/uL (4.8-10.8)
[2024-07-30 15:11] LABS: Prothrombin Time 11.3 SEC (10.9-12.4)
[2024-07-30 15:13] LABS: Alanine Aminotransferase 25 U/L (0-40); Albumin Level 3.8 g/dL (3.5-5.0); Alkaline Phosphatase 75 U/L (39-117); Anion Gap 13 (12-20); Aspartate Amino Transferase 26 U/L (5-37); Bilirubin Total 0.8 mg/dL (0.0-1.0); Blood Urea Nitrogen 28 mg/dL (9-16); Carbon Dioxide 25 mmol/L (22-29); Chloride 106 mmol/L (96-108); Creatinine Clr Calc Pharmacy 59.1; Estimated Glomerular Filt Rate > 60; Glucose Random 139 mg/dL (60-115); Partial Thromboplastin Time 28.5 SEC (26.0-36.8); Potassium 4.2 mmol/L (3.3-5.1); Sodium 140 mmol/L (135-145); Total Protein 6.9 g/dL (6.5-8.0)
[2024-07-30 15:22] LABS: Troponin-I High Sensitivity 4.1 ng/L (<3.5-35.0)
[2024-07-30 15:40] LABS: Influenza A PCR NEGATIVE (Negative); Influenza B PCR NEGATIVE (Negative); Resp Syncy Virus RNA Qual PCR NEGATIVE (Negative); SARS COV2 PCR INHOUSE NEGATIVE (Negative)
[2024-08-02 20:47] LABS: B Type Natriuretic Peptide 109 pg/mL (<100)
== END 2024-07-30 18:35 | disposition left against medical advice (07) ==
PROVIDERS: Physician Assistant; Emergency Provider Emergency Medicine; PCP Internal Medicine
DX: R06.00 Dyspnea, unspecified (principal); R06.02 Shortness of breath; Z03.818 Encounter for observation for suspected exposure to other biological agents ruled out; R05.9 Cough, unspecified; E11.9 Type 2 diabetes mellitus without complications; I10 Essential (primary) hypertension; E78.5 Hyperlipidemia, unspecified; Z79.84 Long term (current) use of oral hypoglycemic drugs; Z79.899 Other long term (current) drug therapy; Z79.02 Long term (current) use of antithrombotics/antiplatelets
CPT/HCPCS: 0241U; 71045; 80053; 83880; 84484; 85025; 85610; 85730; 93005; 99281; 99283

== ENCOUNTER → 2024-07-30 14:22 | Outpatient (BNV) | payer MEDICARE, SELFPAY ==
[2023-03-31 07:35] VITALS: BP 100/58; BP 126/68
[2023-07-20 15:41] VITALS: BP 90/50; BMI 30.9
== END ==
PROVIDERS: Emergency Provider Emergency Medicine; PCP Internal Medicine; Visit Provider Internal Medicine Cardiovascular Disease
DX: R06.02 Shortness of breath (principal)
CPT/HCPCS: 93010

== ENCOUNTER 2024-08-03 13:30 | Outpatient (AMB) | payer MEDICARE, SELFPAY ==
[2023-03-31 07:35] VITALS: BP 100/58; BP 126/68
[2023-07-20 15:41] VITALS: BP 90/50; BMI 30.9
[2024-08-03 13:37] VITALS: BP 100/62; PULSE 57
--- NOTE | 2024-08-03 13:37 | MHC.OFFVIS ---
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: No Golf Ball Trimmer: Golf Ball Trimmer Present Allergies BERNABE Inhibitors [BERNABE INHIBITORS] Allergy (Intermediate, Verified 08/03/24 13:41) DEPRESSION latex [LATEX] Allergy (Intermediate, Verified 08/03/24 13:41) RASH terazosin Allergy (Intermediate, Verified 08/03/24 13:41) hives, swollen lips and hoarseness pravastatin [Pravachol] Allergy (Unknown, Verified 08/03/24 13:41) unknown bee pollen [bee stings] Adverse Reaction (Severe, Verified 08/03/24 13:41) Anaphylaxis Beta-Blockers (Beta-Adrenergic Bloc [BETA-BLOCKERS (BETA-ADRENERGIC BLOC] Adverse Reaction (Intermediate, Verified 08/03/24 13:41) DECREASED HR, DEPRESSION amoxicillin Allergy (Intermediate, Uncoded 08/03/24 13:41) hives, swollen lips, and hoarseness cephlex: levofloxacin Allergy (Intermediate, Uncoded 08/03/24 13:41) hives, swollen lips, and hoarseness clindomycin Allergy (Intermediate, Uncoded 08/03/24 13:41) hives, swollen lips, and hoarseness Medication List - Last Reconciled 08/03/24 by JOSE RAUL PryorC albuterol sulfate 90 mcg/actuation 2 puffs inhalation Q4-6H PRN aspirin (Adult Low Dose Aspirin) 81 mg PO DAILY bisoprolol fumarate 2.5 mg (1/2 x 5 mg) PO DAILY blood sugar diagnostic ([employer] Verio test strips) 1 Strip Once a Day blood-glucose meter ([employer] Verio Meter) to check blood sugars once a day diphenhydramine HCl (Benadryl Allergy) 25 mg PO TID PRN ezetimibe (Zetia) 10 mg PO DAILY finasteride 5 mg PO DAILY fluticasone propionate 50 mcg/actuation (Flonase Allergy Relief) 1 spray intranasal DAILY lancets ([employer] Delica Lancets) to check blood sugars once a day metformin ER 500 mg PO BID nitroglycerin 0.4 mg sublingual Q5M PRN rosuvastatin 40 mg PO DAILY HPI HPI f/u per DC: Details: Kartik is a 79 yo male with PMH of HTN, HLD, DM, SSS s/p dual chamber pacemaker, CAD, CABG, ischemic CMP who was in the ED earlier this week with report of sob, chest tightness and weakness/ fatigue. His EKG was not ischemic and did show 3 PVCs. His tropinin level was normal. He waited over 3 hours and left prior to being seen. Today he reports that 2 weeks ago he noticed increased shortness of breath with activities such as snow blowing and pushing the grocery cart in the store. He states that following the shortness of breath he would get a tightness in the left chest region which he is telling me is new for him. He says he has had different types of discomfort in the past but this feeling is causing him concern. He then has noticed a few episodes of heart palpitations after the episodes are over. He will feel a few jumps in his chest. No sustained rapid or irregular rates. No dizziness, presyncope, syncope, falls. No shortness of breath at rest, PND, orthopnea or edema. He did have a hoarse voice for a few days and believes he may have had a mild cold. He does not think that his shortness of breath and chest tightness symptoms were related to this. He is concerned about his symptoms and believes them to be cardiac related. He has been taking all his meds as directed. Significant other is present. [facility] Medical History Ischemic cardiomyopathy Pacemaker (~2021) Bradycardia (~2021) History of COVID-19 BPH (benign prostatic hyperplasia) Hypertension Obesity Hyperlipidemia associated with type 2 diabetes mellitus Tubular adenoma of colon COVID-19 vaccine administered Diabetes mellitus History of colon cancer (~2010) PVC (premature ventricular contraction) SVT (supraventricular tachycardia) CAD (coronary artery disease) Surgical History History of pacemaker (~2021) History of coronary artery bypass graft x 3 (~1998) History of hernia repair (~2012) History of colonoscopy History of left knee surgery (~2003) History of right knee surgery History of colostomy (~2010) History of partial colectomy (~2011) History of tonsillectomy History of repair of rotator cuff History of cataract surgery (~2013) History of cardiac cath History of colostomy reversal (~2011) Family History Father Cancer, colon Mother Cancer of breast Cancer of lung Sister Cancer Social History Household Members: Spouse Housing: House Are you a primary manager of care to a significant other at home: No Do you presently have visiting nurse or other home services: No Alcohol intake: current Alcohol intake frequency: 0-2 drinks per day Comment: previously medicated with po tylenol Patient Tobacco Use Status: Never used Tobacco Tobacco use type: Cigarette e-Cigarette/Vaping Use: Never Used Second Hand Smoke Exposure: No service: No Current occupational status: retired Cognitive needs: No Hearing needs: No Vision needs: Yes (glasses) Review of Systems Const All systems reviewed & are unremarkable except as noted in HPI and below Reports fatigue ENT Denies dizziness Card Reports chest pain (Left chest tightness following exertinal activity), Denies chest pain at rest, Denies chest pain with activity, Denies rapid heart rate, Denies pedal edema, Denies edema, Denies leg edema, Denies lightheadedness, Denies palpitations, Reports dyspnea (with exertion), Denies dyspnea on exertion and Denies orthopnea Resp Denies cough, Reports dyspnea (with exertion) and Denies dyspnea on exertion GI Denies hematochezia and Denies change in stool character Musc Denies abnormal gait, Denies limited range of motion, Denies muscle cramps, Denies muscle weakness, Denies numbness, Denies radiating pain into limb, Denies stiffness and Denies tingling Neuro Denies abnormal gait, Denies dizziness, Denies numbness and Denies tingling Endo Reports fatigue and Denies palpitations Physical Exam Vital Signs: Last Vital Signs Pulse 57 08/03/24 13:37 BP 100/62 08/03/24 13:37 BMI result Body Mass Index 30.0 Const General: cooperative, healthy appearing, comfortable and no acute distress Orientation/consciousness: patient oriented x3 Neck Neck: Yes normal visual inspection Resp Effort & Inspection: normal respiratory effort Auscultation: clear to auscultation bilaterally, no rales, no rhonchi and no wheezes Cardio Jugular venous distension: no JVD Rate: regular rate Rhythm: regular rhythm Heart sounds: S1 normal heart sound present, S2 normal heart sound present, no murmurs and no rubs Neuro General: patient oriented x3 Extrem General: Yes normal to inspection, No no pedal edema and No calf tenderness Psych Appearance: grossly normal Mental Status: mental status grossly normal Speech and movement: Normal speech and movement present Office Procedures EKG Details: Today, read by me A paced, V sensed, 2 PVCs, cant exclude prior anterior infarct, rate 72, QTc 442 ms [id number], Complete Assessment & Plan Assessment & Plan (1) SOB (shortness of breath) on exertion: Code(s): R06.02 - Shortness of breath Category: Medical Plan: Reports of shortness of breath followed by tightness in his left chest with exertional activity over the last 2 weeks. He has a known history of CAD, prior Coronary artery bypass grafting with last cardiac catheterization 02/02/2024 showing severe [place] vessel disease, patent grafts. Last echocardiogram done 01/10/2024 showed EF 35-40%, grade 1 diastolic dysfunction, regional wall motion abnormality consistent with ischemic cardiomyopathy, mild aortic regurgitation, normal RV systolic pressure. He did have ER evaluation on 07/30/2024 where his troponin level was normal, EKG showed no active disease an EKG showed sinus rhythm with PVCs. He waited over 3 hours then left prior to being seen. Today he reports that his symptoms over the last 2 weeks have caused him much concern. His description sounds like stable angina with shortness of breath and chest tightness. He has a history of having angina in the past. He had been on isosorbide previously and had issues with lightheadedness and low blood pressures. He had previously tried Ranexa without improvement in symptoms. His initial blood pressure today was 100/62, recheck done by me 110/58. His blood pressure runs on the low side. He does have a dual-chamber pacemaker and EKG today shows atrial and ventricular paced rhythm, rate 60. Reviewed meds with Dr. Espinoza. Will retry Ranexa 500 mg b.i.d.. Continue Bystolic. Continue aspirin indefinitely and continue rosuvastatin and Zetia with ideal LDL goal less than 70. Signs and symptoms of angina reviewed with him. Activity as tolerated. Emergency care if needed for symptoms that are not relieved by rest. Cardiology follow-up for re-evaluation in 2 weeks. 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 Code(s): Z98.890 - Other specified postprocedural states Category: Surgical Plan: As above (3) CAD (coronary artery disease): Comment: (Hx CABG x 3 - FIELDS to LAD, radial graft to Ramus, free GOYO to RCA - 1998) Code(s): I25.10 - Atherosclerotic heart disease of [place] coronary artery without angina pectoris Category: Medical Plan: as above (4) SVT (supraventricular tachycardia): Code(s): I47.1 - Supraventricular tachycardia Category: Medical Plan: Episodes of SVT previously seen on pacemaker monitoring. He has not had any recent heart palpitations. He is taking his low-dose bisoprolol as directed. Unable to further titrate dose due to low blood pressure readings. Reviewed reduction in stimulant, vagal maneuvers. Emergency care if ever needed for sustained rapid palpitations. (5) Hypertension: Code(s): I10 - Essential (primary) hypertension Category: Medical Plan: History of hypertension. Currently on low-dose bisoprolol. Blood pressure has been running on the low side. Adding Ranexa as above (6) Hyperlipidemia associated with type 2 diabetes mellitus: Code(s): E11.69 - Type 2 diabetes mellitus with other specified complication; E78.5 - Hyperlipidemia, unspecified Category: Medical Plan: ideal LDL goal Less than 70. Labs done 01/21/2024 showed LDL 68. continue rosuvastatin 40 mg daily and Zetia 10 mg daily. (7) Cardiomyopathy: Code(s): I42.9 - Cardiomyopathy, unspecified Category: Medical Plan: Ischemic cardiomyopathy as above. Patient is on bisoprolol. Intolerant to BERNABE inhibitors. Blood pressure runs low unable to add additional agents at this time. (8) Pacemaker: Onset Date: ~2021 Comment: ([employer] DCPP - placed 06/18/22) Code(s): Z95.0 - Presence of cardiac pacemaker Category: Medical Plan: [employer] dual-chamber pacemaker in place. Interrogation done in the office on 05/22/2024 showed device is functioning normally. Remote monitoring in use. Next office interrogation due in 4 months. Plan time spent on chart review, documentation, interview and assessment Medications: New ranolazine ER 500 mg PO BID 60 tabs 2RF Coding Level of Care Code Est Pt Level 4 (34406) Complex EM visit Add On G2211 Diagnoses SOB (shortness of breath) on exertion R06.02 S/P cardiac cath Z98.890 CAD (coronary artery disease) I25.10 SVT (supraventricular tachycardia) I47.1 Hypertension I10 Hyperlipidemia associated with type 2 diabetes mellitus E11.69; E78.5 Cardiomyopathy I42.9 Pacemaker Z95.0 CPT Codes EKG - CPT: 32810-[id number], Complete ([id number]) Time Spent (min) 36
[2024-08-03 14:17] VITALS: BP 110/58
== END 2024-08-03 15:13 | disposition home or self-care (01) ==
PROVIDERS: PCP Internal Medicine; Visit Provider Nurse Practitioner Family
DX: R06.02 Shortness of breath (principal); Z98.890 Other specified postprocedural states; I25.10 Atherosclerotic heart disease of native coronary artery without angina pectoris; I47.10 Supraventricular tachycardia, unspecified; I10 Essential (primary) hypertension; E11.69 Type 2 diabetes mellitus with other specified complication; E78.5 Hyperlipidemia, unspecified; I42.9 Cardiomyopathy, unspecified; Z95.0 Presence of cardiac pacemaker
CPT/HCPCS: 93010; 99214; G2211

== ENCOUNTER → 2024-08-03 13:30 | Outpatient (BNVA) | payer MEDICARE, SELFPAY ==
[2023-03-31 07:35] VITALS: BP 100/58; BP 126/68
[2023-07-20 15:41] VITALS: BP 90/50; BMI 30.9
== END ==
PROVIDERS: PCP Internal Medicine; Visit Provider Nurse Practitioner Family
DX: I10 Essential (primary) hypertension (principal); I47.10 Supraventricular tachycardia, unspecified; I42.9 Cardiomyopathy, unspecified; I25.10 Atherosclerotic heart disease of native coronary artery without angina pectoris; R06.02 Shortness of breath; E11.69 Type 2 diabetes mellitus with other specified complication; E78.5 Hyperlipidemia, unspecified; Z95.1 Presence of aortocoronary bypass graft; Z95.0 Presence of cardiac pacemaker; Z98.890 Other specified postprocedural states
CPT/HCPCS: 93005; 99212

== ENCOUNTER 2024-08-17 13:44 | Outpatient (AMB) | payer MEDICARE, SELFPAY ==
[2023-03-31 07:35] VITALS: BP 100/58; BP 126/68
[2023-07-20 15:41] VITALS: BP 90/50; BMI 30.9
--- OUTSIDE RECORDS SUMMARY | 2024-08-17 13:48 | XMS_ITS | Patient Health Record ---
Author Organization Ivan Llanes III, MD Address [address] [place] [address] Care Team Providers Care Daycare Assistant Name Role Phone Mckinley Choi MD Primary Care Provider Unavaila Ivan Cisse Unavailable [phone] Allergies Allergen (clinical drug ingredient) Drug/Non Drug [...] day Active Finasteride 5 MG Oral Act adura Social History Tobacco Use: Social History Observation [...] Problem Status W/U Status Risk Notes Problem 865310698 Obesity (E66.9) Active confirmed He has lost 3 pounds. We discussed diet and nutrition today. We reviewed his weight loss strategy. We made a plan to lose weight at a rate of one half of a pound per week. Problem [id number] BPH (benign prostatic hyperplasia) (N40.0) Active confirmed He is taking 3 medications arises from sleep 4 times a night. He will follow up with primary care and urology. Problem [id number] Osteoarthritis of multiple joints, unspecified osteoarthritis type (M15.9) Active confirmed He has mild symptoms arthritis in his knees. He is taking ibuprofen with good relief. Problem 600268710 Erythrocytosis (D75.1) Active confirmed Numerous recent CBC determinations show his hematocrit to be normal. Problem [id number] Coronary artery disease involving [place] coronary artery without angina pectoris, unspecified whether [place] or transplanted heart (I25.10) Active confirmed Since his [facility] visit he has had no episodes of angina with exertion or at rest. There is no need to change his regimen at this time. Problem 628491921 Malignant neoplasm of colon, unspecified part of colon (C18.9) Active confirmed There is no sign of disease recurrence or of a new primary tumor. He will continue with surveillance and periodic colonoscopies. Problem 981353914 Hyperlipidemia type II (E78.01) Active confirmed His [...] Date Provider Diagnosis Ivan Llanes III, MD [address] [place] [address] DR MAHER, SEGUNDO [id number] 04/06/2024 Ivan Llanes Malignant neoplasm o f colon, unspecified part of colon C18.9 ; BPH (benign prostatic hyperplasia) N40.0 ; Osteoarthritis of multiple joints, unspecified osteoarthritis type M15.9 ; Coronary artery disease involving [place] coronary artery without angina pectoris, unspecified whether [place] or transplanted heart I25.10 and Obesity E66.9 [...] good relief. 04/06/2024 Coronary artery disease involving [place] coronary artery without angina pectoris, unspecified whether [place] or transplanted heart (ICD-10 - I25.10) Since [...] Details Provider Name:Ivan Llanes, 04/04/2025 11:00:00 AM, [address] [place] [address] [address]USTO, [place], [address], Insurance Providers Payer Name Payer Address Payer Phone Subscriber Number Group Number Insured Name Patient Relationship to Insured Coverage Start Date Coverage End Date MEDICARE NGS [address] [place] [id number] Kartik Ortiz Self - patient is the insured [facility] [address] [place], [place] [id number] [phone] [id number] Kartik Ortiz Self - patient is the insured Medical (General) History Medical History History ICD Code coronary artery disease CABG 1998 hyperlipidemia 09/2011 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
--- OUTSIDE RECORDS SUMMARY | 2024-08-17 13:48 | XMS_ITS | Data Portability ---
Author Organization [facility], [facility] Address [address] [place] [address] Care Team Providers Care Automotive Diagnostic Technician Name Role Phone SHAY MARTIN Primary Care Provider Assessment No assessment recorded. Plan of Treatment Reminders Order Date Submit Date Provider Last Modified By Organization Details Last Modified Time Details Appointments RECHECK 15 2024 09:30A M Chad Duque PA-C Not available Not available Not available Lab None recorded. Referral None recorded. Procedures None recorded. Surgeries None recorded. Imaging XR, knee, 4 or more view - est pt left knee 4v. Hx of LTKA by Marian 211 2023 024 [email or web address] [facility] Office, [address], [place], [address], 12/23/2023 12:33:47 XR, hip + pelvis, bilateral , 2 view - room 5 bilateral hip 2v cw 2023 024 [email or web address] [facility] Office, [address], [address], [place], [address], 07/26/2024 09:35:44 Medication Orders None recorded. Patient TargetsNo targets recorded. Patient Instructions Encounter Date Encounter Id Patient Instructions Last Modified By Organization Details Last Modified Time 12/23/2023 [id number] trochanteric bursitis: exercises Not available 12/23/2023 11:00:59 hip bursitis: exercises Not available 12/23/2023 11:00:59 07/03/2024 [id number] hip bursitis: exercises Not available 07/03/2024 12:41:25 trochanteric bursitis: exercises Not available 07/03/2024 12:41:25 Reason for Referral None Reported. Results Created Date Observation Date Name Description Value Unit Range Abnormal Flag Note LastModifiedBy Organization Detail LastModifiedTime 04/06/2006/02/2021 imagi ng/di agnos tic resul t No observ ation record ed. [email or web address] Not Available 03/10 13:53:58 07/03/2007/03/2024 XR, hip + pelvi s, bilat eral, 2 view [email or web address]:/ [email or web address] ?Encry pted=s hAaTro YD8dLq bEUv6g %2BXZw aYqtaq 0bqfl% 2Fg9IQ a4ajBk vP9nXo QUaueC m3YtLR FvZlgJ JJ8mAn HZtai3 9r9999 AC0Kqa XmCVqq uKiQtr MwF INTERFACE [employer] Office [address], [place], [address], 07/03/2024 09:42:15 07/03/2007/03/2024 XR, hip + pelvi s, bilat eral, 2 view http:/ [email or web address] ?Encry pted=s hAaTro YD8dLq bEUv6g %2BXZw aYqtaq 0bqfl% 2Fg9IQ a4ajBk vP9nXo QUaueC m3YtLR FvZl J8[place] HZtai3 8n6410 AC0Kqa XmCVqq uKiQtr MwF INTERFACE [employer] Office [address], [place], [address], 07/03/2024 09:42:17 Result Notes None recorded. 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 Procedures Surgical History Date Name Laterality Status Provider Name and Address Organization Details Recorded Time 5 Sports Shoulder 4&1 completed Ashlee Frost PA-C [address], [place], [address], [facility] 08/15/2024 20:35:21 4 Hip Kenalog 1cc Injection, Bilateral completed Ashlee Frost PA-C [address], [place], [address], [facility] 07/03/2024 12:56:04 4 Sports Shoulder 4&1 completed Ashlee Frost PA-C [address], [place], [address], [facility] 04/03/2024 13:25:55 4 Hip Kenalog 1cc Injection, L/R cancelled Chad Duque PA-C [address], [place], [address], [facility] 02/16/2024 09:03:17 4 Sports Shoulder 4&1 cancelled Chad Duque PA-C [address], [place], [address], [facility] 02/16/2024 09:03:22 4 Hip Kenalog 1cc Injection, L/R completed Ashlee Frost PA-C [address], [place], [address], [facility] 12/24/2023 14:18:16 4 Hip Kenalog 1cc Injection, L/R completed Chad Duque PA-C [address], [place], [address], [facility] 11/10/2023 09:22:06 4 Sports Shoulder 4&1 completed Chad Duque PA-C [address], [place], [address], [facility] 11/10/2023 09:22:19 Imaging Results Imaging Date Name Status LastModified by Organiz ation Details LastModified Time 06/02/2021 imaging/diag nostic result completed [email or web address] Information not available 04/06/2024 13:53:58 07/03/2024 XR, hip + pelvis, bilateral, 2 view completed [facility] [address], [place], [address], 07/03/2024 09:42:15 07/03/2024 XR, hip + pelvis, bilateral, 2 view completed [facility] [address], [place], [address], 07/03/2024 09:42:17 Procedure Notes None recorded. Medical Equipment None Reported. Allergies Allergen ID Allergen Name Allergen Category Reaction Reaction Severity Criticality Documentation Date Start Date Code Code System Note Provider Name and Address Organization Details Recorded Time 093508 latex environme nt,medica tion Not available Not available Not available 11/09/2023 34103 91 RxNorm RATNA rincon [place] - [facility] 13:24:57 Medications Name Sig Start Date Stop Date Status Note LastModified by Organization Details LastModified Time doxycycline hyclate 100 mg capsule TAKE ONE CAPSULE BY MOUTH TWICE DAILY FOR SIX DAYS 07/03 completed Not Available Not Available Not Available azithromyci n 250 mg tablet TAKE 2 TABLETS BY MOUTH FOR 1 DAY THEN TAKE 1 TABLET BY MOUTH DAILY FOR 4 DAYS 07/03 completed Not Available Not Available Not Available meloxicam 15 mg tablet Take 1 tablet every day by oral route after meal(s). 2024 active Not Available Not Available Not Avai lable amlodipine 2.5 mg tablet TAKE 1 TABLET BY MOUTH DAILY active Not Available Not Available No t Available bisoprolol fumarate 5 mg tablet TAKE 1 TABLET BY MOUTH DAILY active Not Available Not Available No t Available isosorbide mononitrate ER 60 mg tablet,exte nded release 24 hr TAKE 1 TABLET BY MOUTH DAILY active Not Available Not Available No t Available pseudoephed rine-guaife nesin ER 80-700 mg tablet,exte nded release DO NOT DRIVE WHILE TAKING THIS MEDICATIO N 03/05 completed Statu s: 'Disc ontin ued'; Not Available Not Available Not Available nitroglycer in 0.4 mg sublingual tablet active Not Available Not Available Not Available mupirocin 2 % topical ointment APPLY TOPICALLY THREE TIMES DAILY active Not Available Not Available No t Available metformin ER 500 mg tablet,exte nded release 24 hr TAKE 1 TABLET BY MOUTH TWICE DAILY active Not Available Not Available No t Available finasteride 5 mg tablet active Not Available Not Available Not Available rosuvastati n 40 mg tablet active Not Available Not Available Not Available aspirin active Not Available Not Avail able Not Available finasteride 07/03 completed Not Available Not Available Not Available lisinopril active Not Available Not Av ailable Not Available isosorbide 07/03 completed Not Available Not Available Not Available ezetimibe active Not Available Not Tamera ilable Not Available rosuvastati n 07/03 completed Not Available Not Available Not Available ranolazine ER 500 mg tablet,exte nded release,12 hr active Not Available Not Available Not Available ranolazine ER 1,000 mg tablet,exte nded release,12 hr active Not Available Not Available Not Available OneTouch Verio test strips USE TO TEST BLOOD SUGAR ONCE DAILY active Not Available Not Available No t Available Vitals Date Recorded Body height Body mass index (BMI) Body weight Provider Name and Address Organization Details Last Updated DateTime 11/10/2023 175.26 cm 31.7 kg/m2 36812.36 g RATNA REED [facility] 11/10/2023 08:58:29 Date Recorded Body height Body mass index (BMI) Body weight Provider Name and Address Organization Details Last Updated DateTime 12/23/2023 175.26 cm 31.7 kg/m2 21941.36 g MADHU ALVARENGA [facility] 12/23/2023 10:16:47 Date Recorded Body height Body mass index (BMI) Body weight Provider Name and Address Organization Details Last Updated DateTime 04/03/2024 175.26 cm 31.7 kg/m2 42544.36 g johana [facility] 04/03/2024 11:08:01 Date Recorded Body height Body mass index (BMI) Body weight Provider Name and Address Organization Details Last Updated DateTime 07/03/2024 175.26 cm 31.7 kg/m2 35633.36 g [facility] 07/03/2024 09:16:24 Date Recorded Body height Body mass index (BMI) Body weight Provider Name and Address Organization Details Last Updated DateTime 08/16/2024 175.26 cm 31.7 kg/m2 98690.36 g [facility] 08/16/2024 08:48:01 Social History None recorded. Functional Status None recorded. Mental Status None recorded. Family History Nothing Reported. Medical History Condition Response Diabetes Y Cancer Y Arthritis Y Hypertension Y Past Encounters Encounter ID Performer Location Encounter Start Date Encounter Closed Date Diagnosis/Indication Diagnosis SNOMED-CT Code Diagnosis ICD10 Code Diagnosis Note [id number] KEYON Ojeda [address] [place] [address] 11/10/2023 08:45:42 11/30/2023 13:39:28 Full thickness rotator cuff tear 060487816 M75.122 You have been provided with a cortisone injection in order to reduce the pain and inflammati on that you are experienci ng. The injection consists of two medication s. Cortisone (an anti-infla mmatory that will take 48-72 hours to take effect) and Lidocaine (a numbing agent that will last 2-3 hours). Please note that not everyone will have a lasting response following the injection. PATIENT INSTRUCTIO NSOnce the Lidocaine wears off, you may have an increase in your pain. I recommend icing the affected area for 20 minutes 3-4 times per day.It is recommende d that you refrain from any high level activities using the joint or limb that was injected for approximat nafisa 24-48 hours. Normal day-to-day activities are generally not a problem.PO SSIBLE SIDE EFFECTSInd ividuals with dark complexion s may experience some skin discolorat ion locally at the site of the injection. There is the possibilit y of an increase in discomfort within 48 hours following the injection. This is called a ? flare? . To help minimize the chances of this, please see the post-injec tion instructio ns above.Ther e is a less than 1% chance of an infection. If you notice any signs of infection (redness, warmth, drainage, fever greater than 100 degrees) please call our office or contact us through the portal BLANCHE. Trochanter ic bursitis of left hip 4307324352 23640 M70.62 [id number] KEYON Borges [address] [place] [address] 12/23/2023 09:15:50 01/13/2024 14:08:26 History of left total knee replacement 4855554027 210563 Z96.652 Trochanter ic bursitis of left hip 7636074202 49092 M70.62 [id number] KEYON Borges [address] [place] [address] 04/03/2024 10:37:25 04/25/2024 13:22:23 Full thickness rotator cuff tear 829011526 M75.122 Osteoarthr itis of joint of left shoulder region 0830801004 76926 M19.935 [id number] KEYON Borges [facility] [address] [place] [address] 07/03/2024 09:12:06 07/26/2024 09:35:44 Hip pain 80630398 M25.551 M25.552 Trochanter ic bursitis of left hip 6453292039 44442 M70.62 Trochanter ic bursitis of right hip 4920975263 81895 M70.61 Primary co xarthrosis, bilateral 839834232 M16.0 [id number] [facility] [address] [address] [facility] [address] [place] [address] 08/16/2024 08:42:00 08/16/2024 09:17:57 Full thickness rotator cuff tear 576740125 M75.122 Osteoarthr itis of joint of left shoulder region 9450826069 67453 M19.012 Health Concerns Section Related Observation LastModified by Organization Detai ls LastModified Time None Recorded Concern Status LastModified by Organization Details LastModified Time None Recorded Advance Directives Directive None Recorded Payers Encounter Date Sequence Insurance Name Policy Number Policy Delgado Covered Member ID Delgado Member ID Guarantor Name 11/10/2023 1 [place] [employer] Kartik Ortiz [id number] Kartik Ortiz 11/10/2023 2 [place] [id number] Kartik Ortiz [id number] Kartik Ortiz 12/23/2023 1 [place] Kartik Ortiz [id number] Kartik Ortiz 12/23/2023 2 [place] [id number] Kartik Ortiz [id number] Kartik Ortiz 04/03/2024 1 [place] Kartik Ortiz [id number] Kartik Ortiz 04/03/2024 2 [place] [id number] Kartik Ortiz [id number] Kartik Ortiz 07/03/2024 1 [place] Kartik Ortiz [id number] Kartik Ortiz 07/03/2024 2 [place] [id number] Kartik Ortiz [id number] Kartik Ortiz 08/16/2024 1 [place] Kartik Ortiz [id number] Kartik Ortiz 08/16/2024 2 [place] [id number] Kartik Ortiz [id number] Kartik Ortiz Notes Date Note Type Note Provider Name and Address Organization Details Recorded Time 11/10/2023 text/html I am seeing the patient today under the supervision of{{ Dr. Camara#}} who was available but who did not see the patient. REASON FOR VISITPatient comes to the office with known chronic rotator cuff tear of the {{left* Right Bilatera l}} shoulder. The patient has done well with conservative management for their shoulder pain. Recently reports increasing discomfort over the past several weeks without injury. Pain is generalized about the shoulder and discomfort is noted at night. Patient also complaining about pain discomfort in the lateral aspect of the left hip. Patient states that he recently started cardiac rehab and developed the pain over time. Pain discomfort lateral aspect of the hip difficulty with hip flexion activities and sleeping on that side. No groin pain. PAST MEDICAL/SURGICAL HISTORYCurrent medications per intake sheet. PHYSICAL FINDINGSThe patient is well appearing, in no apparent distress, alert and oriented to person, place and time. Gait is symmetric. No significant swelling, warmth or erythema about either shoulder.There is mild tenderness to palpation about the shoulder. Active range of motion of the shoulder is {{full restricted*}} with moderate pain through mid range manipulations. 4/5 strength of the shoulder. Good stability of the shoulder.Peripheral, vascular, lymphatic examination, skin, neurologic coordination, reflexes, sensation are within normal limits. Examination of the {{right left*}} hip reveal no effusion or erythema or warmth. Postive point tenderness over the greater trochanter. Forward flexion to 100 wtih pain at end range. External rotation to 80 internal rotation to 40. - Stinchfield, - impingement, Negative straight leg raise. Negative resisted sit up. Calf soft and nontender. 5/5 strength with hip flexion/extension. ASSESSMENTchronic rotator cuff tearTrochanteric bursitis left hip PLANThe patient has done well with conservative management in regards to the shoulder. Continued conservative management recommended. Moderating activities with the upper extremity recommended also. See procedure note. Follow up as needed. As for the hip recommended a trial of a cortisone injection home stretching exercises were demonstrated and given to the patient. If no significant improvement we will happily see him back for such. Chad Duque PA-C [address] [facility] [address], [place], [address], [facility] - [facility] 11/10/2023 09:23:01 12/23/2023 text/html I am seeing the patient today under the supervision of Dr. Singh who was available but who did not see the patient. HPI: Kartik presents to the office today for an evaluation of his left lower extremity. He is status post left total knee arthroplasty performed in 2005. He recently developed pain over the lateral knee which extended up the side towards the hip. No recent trauma. His symptoms are present both at rest and with activity. He ended up going to [place] emergency department at the beginning of the month secondary to his pain. X-rays of the lumbar spine and hip did not reveal evidence for a fracture. Fortunately his symptoms have been improving. He denies any groin pain or radicular symptoms. No instability of the knee joint. He has had hip bursitis in the past. He is here today for treatment recommendations. PMH/PSH/MEDS/ALL/FMH/S OC HX/ROS are reviewed in detail per my medical intake sheet. General Exam: Vital signs are as noted below Mental status: Alert and lucid. Normal insight, affect and grooming. SOURCING ANALYST: Gross motor coordination is intact. No spasticity or clonus noted. EXAMINATION: The patient is well appearing and in no apparent distress. Alert and oriented x3. Gait is symmetric. {{Right Left*}} knee reveals a surgical scar over the anterior knee, otherwise no deformity upon inspection. No joint effusion, edema, erythema, ecchymosis, or lesions. Neurovascularly intact. No localized tenderness. ROM is 0-120 degrees and pain free. No crepitus noted. Stability intact with anterior, posterior, and varus/valgus stress at both 0 and 30 degrees of flexion. 5/5 strength. Calf/leg compartments soft and compressible. {{Right Left*}} hip reveals no obvious deformity upon inspection. No edema, erythema, ecchymosis, or lesions. Neurovascularly intact. Tenderness present over the greater trochanter. ROM full in all planes. Negative impingement sign, Graham's, Stinchfield test, and straight leg raise. No instability. 5/5 strength. Calf/leg compartments soft and compressible. X-rays ordered, obtained and reviewed at [facility] today include 3 views of the left knee. Images reveal total knee arthroplasty components to be in good position and without evidence of loosening. No change when compared to prior films. X-ray report brought in by the patient from [facility] on 12/07/2023 indicates that x-rays of both the lumbar spine and left hip were performed. No acute fracture or lesion of the spine or left hip. Degenerative changes are present in the lumbar spine. Diffuse osteopenia is present in the left hip. IMPRESSION: Left hip greater trochanteric bursitis status post total knee arthroplasty PLAN: The patient was thoroughly counseled today regarding their hip condition, its natural history, and the treatment options including physical therapy, medication, and a corticosteroid injection. The patient is interested in receiving an injection with corticosteroid. {{Right trochanteric region was Left trochanteric region was* Bilateral trochanteric regions were}} prepped sterilely, and injection was administered at the point of maximum tenderness utilizing 40mg of Kenalog and 4cc of 0.25% Marcaine. The patient tolerated the procedure well. Post-injection precautions were discussed. Physical therapy was encouraged, but the patient has declined. Provided him with a home exercise program. Clinically his knee looks great today. I explained to him that his knee discomfort likely is related to referred pain from his hip. I will see him back in the office in approximately 6 weeks for recheck. All questions answered. Ashlee Frost PA-C [address] [facility], [place], [address], [facility] 12/24/2023 14:23:18 04/03/2024 text/html I am seeing the patient today under the supervision of Dr. Riggs who was available but who did not see the patient. HPI: Kartik presents to the office today for recheck of his left shoulder. He has a known chronic rotator cuff tear which has been responding fairly reasonably to conservative treatment. He typically sees one of my colleagues for this issue. Cortisone injections have been providing him with relief. He is here for repeat injection today. Denies recent trauma. PMH/PSH/MEDS/ALL/FMH/S OC HX/ROS are reviewed in detail per my medical intake sheet. General Exam: Vital signs are as noted below Mental status: Alert and lucid. Normal insight, affect and grooming. SOURCING ANALYST: Gross motor coordination is intact. No spasticity or clonus noted. EXAMINATION: The patient is well appearing and in no apparent distress. Alert and oriented x3. Gait is mildly antalgic. {{Right Left*}} shoulder reveals no obvious deformity upon inspection. No edema, erythema, ecchymosis, or lesions. Good muscle bulk without atrophy. Neurovascularly intact. Tenderness is present over the {{supraspinatus insertion* proximal bicep tendon AC joint anterior shoulder posterior shoulder}}. Active range of motion is as follows: Forward flexion 140 degrees, abduction 140 degrees, external rotation 90 degrees, and internal rotation to back pocket. Positive {{Impingement signs Speed's crossarm adduction empty can belly press O'Briens Impinge ment signsnd empty can#}}. Negative Speed's. 4/5 strength including rotator cuff and periscapular musculature. No evidence of instability of the shoulder. X-rays and MRI performed previously have been reviewed. IMPRESSION: Left shoulder rotator cuff arthropathy PLAN: The patient was thoroughly counseled today regarding their shoulder condition, its natural history, and the treatment options including physical therapy, medication, and a corticosteroid injection. The patient is interested in receiving an injection with corticosteroid. The {{right left*}} shoulder was prepped sterilely and a subacromial injection was administered utilizing 40mg of Kenalog and 4cc of 0.25% Marcaine. The patient tolerated the procedure well. Post-injection precautions were discussed. He may repeat this injection in 3 months if needed. He has no interest in a reverse total shoulder arthroplasty. All questions answered. Ashlee Frost PA-C [address] [place] [address] [address], [place], [address], [facility] 04/03/2024 13:26:13 07/03/2024 text/html I am seeing the patient today under the supervision of Dr. Riggs who was available but who did not see the patient. HPI: Kartik was scheduled for a recheck of his shoulder today, but requested to be evaluated for his bilateral hips. He has been experiencing bilateral lateral hip pain for quite some time. His symptoms are most significant at the end of the day and after prolonged sitting. With activity his symptoms improved. He denies any groin pain or radicular symptoms. He is not taking medication for his pain. He is here today for treatment recommendations. PMH/PSH/MEDS/ALL/FMH/S OC HX/ROS are reviewed in detail per my medical intake sheet. General Exam: Vital signs are as noted below Mental status: Alert and lucid. Normal insight, affect and grooming. SOURCING ANALYST: Gross motor coordination is intact. No spasticity or clonus noted. EXAMINATION: The patient is well appearing and in no apparent distress. Alert and oriented x3. Gait is antalgic. {{Right hip reveals Left hip reveals Bilateral hips reveal*}} no obvious deformity upon inspection. No edema, erythema, ecchymosis, or lesions. Neurovascularly intact. Tenderness present over the greater trochanter. ROM full in all planes. Negative impingement sign, Graham's, Stinchfield test, and straight leg raise. No instability. 5/5 strength. Calf/leg compartments soft and compressible. Lumbar spine reveals no obvious deformities upon inspection. No edema, erythema, ecchymosis, or lesions. ROM is full and pain free. Straight leg raise is negative in the sitting and supine position. No focal neurologic deficits in the lower extremities. X-rays ordered, obtained and reviewed at [facility] today include an AP pelvis and lateral view of {{right hip left hip bilateral hips*}}. Images reveal mild degenerative changes and cam deformities. No acute fracture or lesion. IMPRESSION: {{Right Left Bilateral *}} hip greater trochanteric bursitis and mild osteoarthritis PLAN: The patient was thoroughly counseled today regarding their hip condition, its natural history, and the treatment options including physical therapy, medication, and a corticosteroid injection. The patient is interested in receiving an injection with corticosteroid. {{Right trochanteric region was Left trochanteric region was Bilateral trochanteric regions were*}} prepped sterilely, and injection was administered at the point of maximum tenderness utilizing 40mg of Kenalog and 4cc of 0.25% Marcaine. The patient tolerated the procedure well. Post-injection precautions were discussed. A structured home exercise program has been provided. The patient prefers to hold off on formal physical therapy. If his symptoms are not improved following today's injection, we may consider scheduling him for an ultrasound guided intra-articular hip cortisone injection. He is returning to the office in August for his left shoulder. He will give me an update on his hips at that time. All questions answered. Ashlee Frost PA-C [address] [place] [address] [address], [place], [address], [facility] 07/03/2024 12:57:40 08/16/2024 text/html I am seeing the patient today under the supervision of Dr. Singh who was available but who did not see the patient. HPI: Kartik presents to the office today for recheck of his left shoulder. He has a known chronic rotator cuff tear which has been responding fairly reasonably to conservative treatment. Cortisone injections have been providing him with 2 months of relief. He is here for repeat injection today. Denies recent trauma. His most recent injection was in March. PMH/PSH/MEDS/ALL/FMH/S OC HX/ROS are reviewed in detail per my medical intake sheet. General Exam: Vital signs are as noted below Mental status: Alert and lucid. Normal insight, affect and grooming. SOURCING ANALYST: Gross motor coordination is intact. No spasticity or clonus noted. EXAMINATION: The patient is well appearing and in no apparent distress. Alert and oriented x3. Gait is mildly antalgic. {{Right Left*}} shoulder reveals no obvious deformity upon inspection. No edema, erythema, ecchymosis, or lesions. Good muscle bulk without atrophy. Neurovascularly intact. Tenderness is present over the {{supraspinatus insertion* proximal bicep tendon AC joint anterior shoulder posterior shoulder}}. Active range of motion is as follows: Forward flexion 140 degrees, abduction 140 degrees, external rotation 90 degrees, and internal rotation to back pocket. Positive {{Impingement signs Speed's crossarm adduction empty can belly press O'Briens Impinge ment signs and empty can#}}. Negative Speed's. 4/5 strength including rotator cuff and periscapular musculature. No evidence of instability of the shoulder. X-rays and MRI performed previously have been reviewed. IMPRESSION: Left shoulder rotator cuff arthropathy PLAN: The patient was thoroughly counseled today regarding their shoulder condition, its natural history, and the treatment options including physical therapy, medication, and a corticosteroid injection. The patient is interested in receiving an injection with corticosteroid. The {{right left*}} shoulder was prepped sterilely and a subacromial injection was administered utilizing 40mg of Kenalog and 4cc of 0.25% Marcaine. The patient tolerated the procedure well. Post-injection precautions were discussed. He may repeat this injection in 3 months if needed. He has no interest in a reverse total shoulder arthroplasty. All questions answered. Ashlee Frost PA-C [address], [place], [address], [facility] 08/16/2024 09:17:55
--- OUTSIDE RECORDS SUMMARY | 2024-08-17 13:48 | XMS_ITS ---
Author Organization Ivan Llanes III, MD Address [address] [place] [address] Care Team Providers Care Chair Name Role Phone Mckinley Choi MD Primary Care Provider Unavaila Ivan Cisse Unavailable [phone] Allergies Allergen (clinical drug ingredient) Drug/Non Drug [...] Provider Diagnosis Ivan Llanes III, MD [address] [place] [address] [place] [address] 04/07/2023 Ivan Llanes Malignant neoplasm o f [...] V Provider Name:Ivan Llanes, 04/04/2025 11:00:00 AM, [address] [place] [address] , [facility] Michelle, [place], [address], Progress Notes * Kartik CARRASCODOB: [birth year] (78 yo M)Acc No.[id number]:04/07/2023 Progress Notes Patient:?Kartik Carrasco Provider:?Ivan Llanes MD :1945???Age:78 Y???Sex:Male Aristeo e:04/07/2023 Address: [address], [facility] Pcp:Mckinley Choi MD Subjective: * Chief [...] in July 2023. He follows with a in flight refueling craftsman regularly. He has had no exertional angina. 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 He was born [place], [place]. * Medications:?TakingMetamucil 30.9 % Powder as [...] Llanes MD Date:?03/10 Generated for Ольгаi ng/Dajuan/eTransmitting on:?08/17/2024 01:46 PM EST History and Physical Notes * HPI (History of Present Illness) Category Sub-Category Detail Notes COVID-19 Screening Questions Have you had any new onset fever, chills, cough, congestion, sore throat, shortness of breath, muscle aches?: No Have you been exposed to the virus withi n the last 10 days?: No Have you travelled internationally in [facility] last 10 days?: No Have you [...]
--- OUTSIDE RECORDS SUMMARY | 2024-08-17 13:48 | XMS_ITS ---
Author Organization Ivan Llanes III, MD Address [address] [place] [address] Care Team Providers Care Director Global Strategic Publisher Sales Name Role Phone Mckinley Choi MD Primary Care Provider Unavaila Ivan Cisse Unavailable [phone] Allergies Allergen (clinical drug ingredient) Drug/Non Drug [...] Date Provider Diagnosis Ivan Llanes III, MD [address] [place] [address] [place] [address] 04/06/2024 Ivan Llanes Malignant neoplasm o f colon, unspecified part of colon C18.9 ; BPH (benign prostatic hyperplasia) N40.0 ; Osteoarthritis of multiple joints, unspecified osteoarthritis type M15.9 ; Coronary artery disease involving southern [place] coronary artery without angina pectoris, unspecified whether southern ute or transplanted heart I25.10 and Obesity E66.9 [...] good relief. 04/06/2024 Coronary artery disease involving southern ute coronary artery without angina pectoris, unspecified whether southern ute or transplanted heart (ICD-10 - I25.10) Since [...] v Provider Name:Ivan Llanes, 04/04/2025 11:00:00 AM, [address] [place] [address] [address] [place], [place], [address], Progress Notes * Kartik CARRASCODOB: [birth year] (79 yo M)Acc No.[id number]:04/06/2024 Progress Notes Patient:?Kartik Carrasco Provider:?Ivan Llanes MD :1945???Age:79 Y???Sex:Male Aristeo e:04/06/2024 Address: [address], [facility], [id number] Pcp:Mckinley Choi MD Subjective: * Chief Complaints: [...] 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 He was born [place], [place]. * Medications:?TakingNitroglyc mani 0.4 MG Tablet [...] ibuprofen with good relief.?4.?Coronary artery disease involving southern ute coronary artery without angina pectoris, unspecified whether southern ute or transplanted heart - I25.10, Since his [...] Provider:?Ivan Llanes MD Date:?03/10 Generated for Liam bustillo/Dajuan/Maik on:?08/17/2024 01:46 PM EST History and Physical Notes * HPI (History of Present Illness) Category Sub-Category Detail Notes COVID-19 Screening Questions Have you had any new onset fever, chills, cough, congestion, sore throat, shortness of breath, muscle aches?: No Have you been exposed to the virus withi n the last 10 days?: No [facility]?: No Have you [...]
[2024-08-17 14:20] VITALS: BP 118/60; PULSE 70; BMI 29.3
--- NOTE | 2024-08-17 14:20 | A.OFFVIS_ITS ---
Vital Signs 08/17/24 14:20 Height 5 ft 9 in Weight 198 lb 6.656 oz BMI 29.3 BP 118/60 Blood Pressure Location Lt brachial Position Sitting Pulse 70 Pulse Source Pulse Oximeter Intake Visit Reasons: [facility] ED f/u Allergies BERNABE Inhibitors [BERNABE INHIBITORS] Allergy (Intermediate, Verified 08/03/24 13:41) DEPRESSION latex [LATEX] Allergy (Intermediate, Verified 08/03/24 13:41) RASH terazosin Allergy (Intermediate, Verified 08/03/24 13:41) hives, swollen lips and hoarseness pravastatin [Pravachol] Allergy (Unknown, Verified 08/03/24 13:41) unknown bee pollen [bee stings] Adverse Reaction (Severe, Verified 08/03/24 13:41) Anaphylaxis Beta-Blockers (Beta-Adrenergic Bloc [BETA-BLOCKERS (BETA-ADRENERGIC BLOC] Adverse Reaction (Intermediate, Verified 08/03/24 13:41) DECREASED HR, DEPRESSION amoxicillin Allergy (Intermediate, Uncoded 08/03/24 13:41) hives, swollen lips, and hoarseness cephlex: levofloxacin Allergy (Intermediate, Uncoded 08/03/24 13:41) hives, swollen lips, and hoarseness clindomycin Allergy (Intermediate, Uncoded 08/03/24 13:41) hives, swollen lips, and hoarseness Medication List - Last Reconciled 08/17/24 by JOSE RAUL PryorC albuterol sulfate 90 mcg/actuation 2 puffs inhalation Q4-6H PRN aspirin (Adult Low Dose Aspirin) 81 mg PO DAILY bisoprolol fumarate 2.5 mg (1/2 x 5 mg) PO DAILY blood sugar diagnostic ([employer] Verio test strips) 1 Strip Once a Day blood-glucose meter ([employer] Verio Meter) to check blood sugars once a day diphenhydramine HCl (Benadryl Allergy) 25 mg PO TID PRN ezetimibe (Zetia) 10 mg PO DAILY finasteride 5 mg PO DAILY fluticasone propionate 50 mcg/actuation (Flonase Allergy Relief) 1 spray intranasal DAILY lancets ([employer] Delica Lancets) to check blood sugars once a day metformin ER 500 mg PO BID nitroglycerin 0.4 mg sublingual Q5M PRN ranolazine ER 500 mg PO BID rosuvastatin 40 mg PO DAILY HPI HPI [facility] ED f/u: Details: Kartik is a 79 yo male with PMH of HTN, HLD, DM, SSS s/p dual chamber pacemaker, CAD, CABG, ischemic CMP who was in the ED a few weeks ago with report of sob, chest tightness and weakness/ fatigue. His EKG was not ischemic and did show 3 PVCs. His tropinin level was normal. He waited over 3 hours and left prior to being seen. He was seen in the office 2 weeks later and continued to have some symptoms. He was started on Ranexa and now presents for follow-up. Today he reports that in the last 2 weeks since starting Ranexa he has noticed an improvement in his symptoms. He is having a side effect of constipation with Ranexa. He says he did try this medication in the past and had the same side effect. He is willing to continue taking it at this time. He is interested in reducing his dose slightly. His prior symptom was shortness of breath with exertion then a tightness in the left chest region. This feeling has lessened with his new medication. He has occasional brief heart palpitations, No sustained rapid or irregular rates. No dizziness, presyncope, syncope, falls. No shortness of breath at rest, PND, orthopnea or edema. He has been taking all his meds as directed. [facility] Medical History Ischemic cardiomyopathy Pacemaker (~2021) Bradycardia (~2021) History of COVID-19 BPH (benign prostatic hyperplasia) Hypertension Obesity Hyperlipidemia associated with type 2 diabetes mellitus Tubular adenoma of colon COVID-19 vaccine administered Diabetes mellitus History of colon cancer (~2010) PVC (premature ventricular contraction) SVT (supraventricular tachycardia) CAD (coronary artery disease) Surgical History History of pacemaker (~2021) History of coronary artery bypass graft x 3 (~1998) History of hernia repair (~2012) History of colonoscopy History of left knee surgery (~2003) History of right knee surgery History of colostomy (~2010) History of partial colectomy (~2011) History of tonsillectomy History of repair of rotator cuff History of cataract surgery (~2013) History of cardiac cath History of colostomy reversal (~2011) Family History Father Cancer, colon Mother Cancer of breast Cancer of lung Sister Cancer Social History Household Members: Spouse Housing: House Are you a primary cardiac care nurse to a significant other at home: No Do you presently have visiting nurse or other home services: No Alcohol intake: current Alcohol intake frequency: 0-2 drinks per day Comment: previously medicated with po tylenol Patient Tobacco Use Status: Never used Tobacco Tobacco use type: Cigarette e-Cigarette/Vaping Use: Never Used Second Hand Smoke Exposure: No service: No Current occupational status: retired Cognitive needs: No Hearing needs: No Vision needs: Yes (glasses) Review of Systems Const All systems reviewed & are unremarkable except as noted in HPI and below Denies weakness ENT Denies dizziness Card Denies chest pain, Denies chest pain with activity, Denies syncope, Denies rapid heart rate, Denies pedal edema, Denies edema, Denies leg edema, Denies lightheadedness, Denies palpitations, Denies dyspnea, Denies dyspnea on exertion and Denies orthopnea Resp Denies cough, Denies dyspnea and Denies dyspnea on exertion GI Denies hematochezia and Denies change in stool character Musc Denies abnormal gait, Denies muscle cramps, Denies muscle weakness, Denies numbness, Denies radiating pain into limb and Denies tingling Neuro Denies abnormal gait, Denies dizziness, Denies syncope, Denies numbness, Denies tingling and Denies weakness Endo Denies palpitations Physical Exam Vital Signs: Last Vital Signs Pulse 70 08/17/24 14:20 BP 118/60 08/17/24 14:20 BMI result Body Mass Index 29.3 Const General: cooperative, healthy appearing, comfortable and no acute distress Orientation/consciousness: patient oriented x3 Neck Neck: Yes normal visual inspection Resp Effort & Inspection: normal respiratory effort Auscultation: clear to auscultation bilaterally, no rales, no rhonchi and no wheezes Cardio Jugular venous distension: no JVD Rate: regular rate Rhythm: regular rhythm Heart sounds: S1 normal heart sound present, S2 normal heart sound present, no murmurs and no rubs Neuro General: patient oriented x3 Extrem General: Yes normal to inspection, No no pedal edema and No calf tenderness Psych Appearance: grossly normal Mental Status: mental status grossly normal Speech and movement: Normal speech and movement present Assessment & Plan Assessment & Plan (1) SOB (shortness of breath) on exertion: Code(s): R06.02 - Shortness of breath Category: Medical Plan: He has a known history of CAD, prior Coronary artery bypass grafting with last cardiac catheterization 02/02/2024 showing severe [place]oon[place] vessel disease, patent grafts. Last echocardiogram done 01/10/2024 showed EF 35-40%, grade 1 diastolic dysfunction, regional wall motion abnormality consistent with ischemic cardiomyopathy, mild aortic regurgitation, normal RV systolic pressure. He did have ER evaluation on 07/30/2024 for shortness of breath followed by tightness in his left chest with exertional activity. His troponin level was normal, EKG showed no active disease an EKG showed sinus rhythm with PVCs. He waited over 3 hours then left prior to being seen. Was seen in the office 2 weeks later and continued to report some symptoms. His description sounded like stable angina with shortness of breath and chest tightness. He has a history of having angina in the past. He had been on isosorbide previously and had issues with lightheadedness and low blood pressures. He had previously tried Ranexa without improvement in symptoms. On last visit I had him retry Ranexa 500 mg b.i.d.. He does report some issues with constipation on this medication. Today he reports an improvement in his shortness of breath and chest tightness. He is asking to reduce his Ranexa to an atypical dose of 500 mg b.i.d. on 1 day alternating with 500 mg once daily on the next day. Informed him this is not the usual way to take this medication but he can try to see if that helps with both his symptoms and his side effects. He will call if he has ongoing issues. Continue Bystolic. Continue aspirin indefinitely and continue rosuvastatin and Zetia with ideal LDL goal less than 70. Signs and symptoms of angina reviewed with him. Activity as tolerated. Emergency care if needed for symptoms that are not relieved by rest. Cardiology follow-up as planned for November 2024. (2) S/P cardiac cath: Comment: 02/02/2024 left main 95% distal stenosis, lad 100% proximal stenosis, left circumflex ostial 99% stenosis, RCA mid 100% stenosis.- Mid RCA HELPDESK ANALYST with patent GOYO to RCA, ostial circumflex 99% with collaterals coming from the RCA to circumflex, occluded proximal LAD with patent FIELDS to LAD, filling pressures at rest are normal. Code(s): Z98.890 - Other specified postprocedural states Category: Surgical Plan: As above (3) CAD (coronary artery disease): Comment: (Hx CABG x 3 - FIELDS to LAD, radial graft to Ramus, free GOYO to RCA - 1998) Code(s): I25.10 - Atherosclerotic heart disease of hoon[place] coronary artery without angina pectoris Category: Medical Plan: as above (4) SVT (supraventricular tachycardia): Code(s): I47.1 - Supraventricular tachycardia Category: Medical Plan: Episodes of SVT previously seen on pacemaker monitoring. Occasional brief heart palpitations. He is taking his low-dose bisoprolol as directed. Will continue to follow. Emergency care if ever needed for sustained rapid palpitations. (5) Hypertension: Code(s): I10 - Essential (primary) hypertension Category: Medical Plan: History of hypertension. Currently on low-dose bisoprolol. Blood pressure runs low to normal. (6) Hyperlipidemia associated with type 2 diabetes mellitus: Code(s): E11.69 - Type 2 diabetes mellitus with other specified complication; E78.5 - Hyperlipidemia, unspecified Category: Medical Plan: ideal LDL goal Less than 70. Labs done 01/21/2024 showed LDL 68. continue rosuvastatin 40 mg daily and Zetia 10 mg daily. (7) Cardiomyopathy: Code(s): I42.9 - Cardiomyopathy, unspecified Category: Medical Plan: Ischemic cardiomyopathy as above. Patient is on bisoprolol. Intolerant to BERNABE inhibitors. Blood pressure runs low unable to add additional agents at this time. (8) Pacemaker: Onset Date: ~2021 Comment: ([employer] DCPP - placed 06/18/22) Code(s): Z95.0 - Presence of cardiac pacemaker Category: Medical Plan: [employer] dual-chamber pacemaker in place. Interrogation done in the office on 05/22/2024 showed device is functioning normally. Remote monitoring in use. Office interrogation due next visit. Plan time spent on chart review, documentation, interview and assessment Coding Level of Care Code Est Pt Level 4 (84090) Diagnoses SOB (shortness of breath) on exertion R06.02 S/P cardiac cath Z98.890 CAD (coronary artery disease) I25.10 SVT (supraventricular tachycardia) I47.1 Hypertension I10 Hyperlipidemia associated with type 2 diabetes mellitus E11.69; E78.5 Cardiomyopathy I42.9 Pacemaker Z95.0 Time Spent (min) 28
== END 2024-08-17 15:34 | disposition home or self-care (01) ==
PROVIDERS: PCP Internal Medicine; Visit Provider Nurse Practitioner Family
DX: R06.02 Shortness of breath (principal); Z98.890 Other specified postprocedural states; I25.10 Atherosclerotic heart disease of native coronary artery without angina pectoris; I47.10 Supraventricular tachycardia, unspecified; I10 Essential (primary) hypertension; E11.69 Type 2 diabetes mellitus with other specified complication; E78.5 Hyperlipidemia, unspecified; I42.9 Cardiomyopathy, unspecified; Z95.0 Presence of cardiac pacemaker
CPT/HCPCS: 99214

== ENCOUNTER → 2024-08-17 13:44 | Outpatient (BNVA) | payer MEDICARE, SELFPAY ==
[2023-03-31 07:35] VITALS: BP 100/58; BP 126/68
[2023-07-20 15:41] VITALS: BP 90/50; BMI 30.9
== END ==
PROVIDERS: PCP Internal Medicine; Visit Provider Nurse Practitioner Family
DX: I25.10 Atherosclerotic heart disease of native coronary artery without angina pectoris (principal); I47.10 Supraventricular tachycardia, unspecified; I10 Essential (primary) hypertension; I42.9 Cardiomyopathy, unspecified; E11.69 Type 2 diabetes mellitus with other specified complication; E78.5 Hyperlipidemia, unspecified; R06.02 Shortness of breath; Z98.890 Other specified postprocedural states; Z95.0 Presence of cardiac pacemaker; Z79.82 Long term (current) use of aspirin; Z79.84 Long term (current) use of oral hypoglycemic drugs
CPT/HCPCS: 99212

== ENCOUNTER 2024-08-28 08:46 | Outpatient (REF) | payer MEDICARE, SELFPAY ==
[2023-03-31 07:35] VITALS: BP 100/58; BP 126/68
[2023-07-20 15:41] VITALS: BP 90/50; BMI 30.9
--- OUTSIDE RECORDS SUMMARY | 2024-08-28 09:02 | XMS_ITS | Continuity of Care Document ---
Author Organization [facility], [place] - [facility] 1st Floor Address [address] [place] [address] Care Team Providers Care Aquarium Specialist Name Role Phone MARTIN DAY Primary Care Provider Assessment No assessment recorded. Plan of Treatment Reminders Order Date Submit Date Provider Last Modified By Organization Details Last Modified Time Details Appointments RECHECK 15 2024 09:30A M Chad Duque PA-C Not available Not available Not available Lab None recorded . Referral None recorded . Procedures None recorded . Surgeries None recorded . Imaging None recorded . Medication Orders None recorded . Patient TargetsNo targets recorded. Patient InstructionsNo instructions recorded. Reason for Referral None Reported. Problems Name Problem SNOMED Code Status Onset Date Resolution Date Notes Provider Name and Address Organization Details Recorded Time Pain of left shoulder joint 623832378037 90745 Active 2023 [facility] 4 12:08:26 Hip pain 27036410 Active 2023 [facility] 4 09:35:04 Shoulder pain 41105140 Active 2024 [facility] 5 10:45:30 Implantat ion of joint prosthesi s Active 2014 Status: 'A'; Not Available [facility] 4 11:27:16 Knee joint prosthesi s present 743965888462 Active 2015 Problem Code: Z96.651; Problem Code Type: ICD-10; Status: 'A'; Not Available [facility] 4 11:27:16 Idiopathi c osteoarth ritis 755669701 Active 2017 Problem Code: M17.0; Problem Code Type: ICD-10; Status: 'A'; Not Available [facility] 4 11:27:16 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 Procedures Surgical History Date Name Laterality Status Provider Name and Address Organization Details Recorded Time 5 Sports Shoulder 4&1 completed Ashlee Frost PA-C [address], [place], [address], [facility] 08/15/2024 20:35:21 4 Hip Kenalog 1cc Injection, Bilateral completed Ashlee Frost PA-C [address], [place], [address], [facility] 07/03/2024 12:56:04 4 Sports Shoulder 4&1 completed Ashlee Frost PA-C [address], [place], [address], [facility] 04/03/2024 13:25:55 4 Hip Kenalog 1cc Injection, L/R cancelled Chad Duque PA-C [address], [place], [address], [facility] 02/16/2024 09:03:17 4 Sports Shoulder 4&1 cancelled Chad Duque PA-C [address], [place], [address], [facility] 02/16/2024 09:03:22 4 Hip Kenalog 1cc Injection, L/R completed Ashlee Frost PA-C [address], [place], [address], [facility] 12/24/2023 14:18:16 4 Hip Kenalog 1cc Injection, L/R completed Chad Duque PA-C [address], [place], [address], [facility] 11/10/2023 09:22:06 4 Sports Shoulder 4&1 completed Chad Duque PA-C [address], [place], [address], [facility] 11/10/2023 09:22:19 Imaging Results None recorded. Procedure Notes None recorded. Medical Equipment None Reported. Allergies Allergen ID Allergen Name Allergen Category Reaction Reaction Severity Criticality Documentation Date Start Date Code Code System Note Provider Name and Address Organization Details Recorded Time 027749 latex environme nt,medica tion Not available Not available Not available 11/09/2023 35376 91 RxNorm RATNA REED [facility] 13:24:57 Medications Name Sig Start Date Stop [...] Updated DateTime 08/16/2024 175.26 cm 31.7 kg/m2 48825.36 g johana contreras [facility] 08/16/2024 08:48:01 Social History None recorded. Functional Status None recorded. Mental Status None recorded. Family History Nothing Reported. Medical History Condition Response Diabetes Y Arthritis Y Cancer Y Hypertension Y Past Encounters Encounter ID Performer Location Encounter Start Date Encounter Closed Date Diagnosis/Indication Diagnosis SNOMED-CT Code Diagnosis ICD10 Code Diagnosis Note [id number] [facility] 1st [address] [place] [address] 08/16/2024 08:42:00 08/16/2024 09:17:57 Full thickness rotator cuff tear 315012220 M75.122 Osteoarthr itis of joint of left shoulder region 2748670040 96500 M19.012 Health Concerns Section Related Observation LastModified by Organization Detai ls LastModified Time None Recorded Concern Status LastModified by Organization Details LastModified Time None Recorded Payers Encounter Date Sequence Insurance Name Policy Number Policy Delgado Covered Member ID Delgado Member ID Guarantor Name 08/16/2024 1 [place] [employer] Kartik Ortiz [id number] Kartik Ortiz 08/16/2024 2 [place] [id number] Kartik Ortiz [id number] Kartik Ortiz Notes Date Note Type Note Provider Name and Address Organization Details Recorded Time 08/16/2024 text/html I am seeing the patient [...] His most recent injection was in March. PMH/PSH/MEDS/ALL/FMH/ SOC HX/ROS are reviewed in detail per my medical intake sheet. General Exam: Vital signs are as noted below Mental status: Alert and lucid. Normal insight, affect and grooming. CHECK PROCESSOR: Gross motor coordination is intact. No spasticity [...] to back pocket. Positive {{Impingement signs Speed's crossar m adduction empty can belly press O'Briens Imping ement signs and empty can#}}. Negative Speed's. 4/5 [...] All questions answered. Ashlee Frost PA-C [address] [facility] [address], [place], [address], [facility] [place] [facility] 08/16/2024 09:17:55
--- OUTSIDE RECORDS SUMMARY | 2024-08-28 09:02 | XMS_ITS | Continuity of Care Document ---
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 Plan of Treatment Reminders Order Date Submit Date Provider Last Modified By Organization Details Last Modified Time Details Appointments RECHECK 15 2024 09:30A M Chad Duque PA-C Not available Not available Not available Lab None recorded. Referral None recorded. Procedures None recorded. Surgeries None recorded. Imaging XR, hip + pelvis, bilateral , 2 view - room 5 bilateral hip 2v cw 2023 024 [email or web address] [facility] Office, [address] [facility] [address] [facility] [address], [place], [address], 07/26/2024 09:35:44 Medication Orders None recorded. Patient TargetsNo targets recorded. Patient Instructions Encounter Date Encounter Id Patient Instructions Last Modified By Organization Details Last Modified Time 07/03/2024 [id number] hip bursitis: exercises Not available 07/03/2024 12:41:25 trochanteric bursitis: exercises Not available 07/03/2024 12:41:25 Reason for Referral None Reported. Results Created Date Observation Date Name Description Value Unit Range Abnormal Flag Note LastModifiedBy Organization Detail LastModifiedTime 07/03/2007/03/2024 XR, hip + pelvi devi martínez, 2 view http:/ [email or web address] ?Encry pted=s hAaTro YD8dLq bEUv6g %2BXZw aYqtaq 0bqfl% 2Fg9IQ a4ajBk vP9nXo QUaueC m3YtLR FvZlgJ JJ8mAn HZtai3 0n6016 AC0Kqa XmCVqq uKiQtr MwF INTERFACE [facility] [address], [place], [address], 07/03/2024 09:42:15 07/03/20 24 07/03/2024 XR, hip + pelvi s, bilat eral, 2 view http:/ [email or web address] ?Encry pted=s hAaTro YD8dLq bEUv6g %2BXZw aYqtaq 0bqfl% 2Fg9IQ a4ajBk vP9nXo QUaueC m3YtLR FvZlgJ JJ8mAn HZtai3 6n2293 AC0Kqa XmCVqq uKiQtr MwF INTERFACE [facility] [address], [place], [address], 07/03/2024 09:42:17 Result Notes None recorded. Problems Name Problem SNOMED Code Status Onset Date Resolution Date Notes Provider Name and Address Organization Details Recorded Time Pain of left shoulder joint 391949763685 17870 Active 2023 johana rincon [facility] 4 12:08:26 Hip pain 46905857 Active 2023 johana rincon [facility] 4 09:35:04 Shoulder pain 18603593 Active 2024 [place] rincon 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 4 14:33:13 Problem Notes None recorded. Procedures Surgical History Date Name Laterality Status Provider Name and Address Organization Details Recorded Time 5 Sports Shoulder 4&1 completed Ashlee Frost PA-C [address], [place], [address], [facility] 08/15/2024 20:35:21 4 Hip Kenalog 1cc Injection, Bilateral completed Ashlee Frost PA-C [address], [place], [address], [facility] 07/03/2024 12:56:04 4 Sports Shoulder 4&1 completed Ashlee Frost PA-C [address], [place], [address], [facility] 04/03/2024 13:25:55 4 Hip Kenalog 1cc Injection, L/R cancelled Chad Duque PA-C [address], [place], [address], [facility] 02/16/2024 09:03:17 4 Sports Shoulder 4&1 cancelled Chad Duque PA-C [address], [place], [address], [facility] 02/16/2024 09:03:22 4 Hip Kenalog 1cc Injection, L/R completed Ashlee Frost PA-C [address], [place], [address], [facility] 12/24/2023 14:18:16 4 Hip Kenalog 1cc Injection, L/R completed Chad Duque PA-C [address], [place], [address], [facility] 11/10/2023 09:22:06 4 Sports Shoulder 4&1 completed Chad Duque PA-C [address], [place], [address], [facility] 11/10/2023 09:22:19 Imaging Results None recorded. Procedure Notes None recorded. Medical Equipment None Reported. Allergies Allergen ID Allergen Name Allergen Category Reaction Reaction Severity Criticality Documentation Date Start Date Code Code System Note Provider Name and Address Organization Details Recorded Time 827582 latex environme nt,medica tion Not available Not available Not available 11/09/2023 79313 91 RxNorm RATNA REED [facility] 13:24:57 Medications Name Sig Start Date [...] Updated DateTime 07/03/2024 175.26 cm 31.7 kg/m2 72213.36 g [facility] 07/03/2024 09:16:24 Social History None recorded. Functional Status None recorded. Mental Status None recorded. Family History Nothing Reported. Medical History Condition Response Diabetes Y Cancer Y Arthritis Y Hypertension Y Past Encounters Encounter ID Performer Location Encounter Start Date Encounter Closed Date Diagnosis/Indication Diagnosis SNOMED-CT Code Diagnosis ICD10 Code Diagnosis Note [id number] [facility] [address] [place] [address] 07/03/2024 09:12:06 07/26/2024 09:35:44 Hip pain 00309349 M25.551 M25.552 Trochanter ic bursitis of left hip 7178190329 47826 M70.62 Trochanter ic bursitis of right hip 8758535351 07398 M70.61 Primary co xarthrosis, bilateral 523494672 M16.0 Health Concerns Section Related Observation LastModified by Organization Detai ls LastModified Time None Recorded Concern Status LastModified by Organization Details LastModified Time None Recorded Payers Encounter Date Sequence Insurance Name Policy Number Policy Delgado Covered Member ID Delgado Member ID Guarantor Name 07/03/2024 1 [place] [employer] Kartik Ortiz [id number] Kartik Ortiz 07/03/2024 2 [place] [id number] Kartik Ortiz [id number] Kartik Ortiz Notes Date Note Type Note Provider Name and Address Organization Details Recorded Time 07/03/2024 text/html I am seeing the patient [...] He is here today for treatment recommendations. PMH/PSH/MEDS/ALL/FMH/ SOC HX/ROS are reviewed in detail per my medical intake sheet. General Exam: Vital signs are as noted below Mental status: Alert and lucid. Normal insight, affect and grooming. 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 No spasticity [...] extremities. X-rays ordered, obtained and reviewed at [facility] today include an AP pelvis and lateral view of {{right hip left hip bilateral hips*}}. Images reveal mild degenerative changes and cam deformities. No acute fracture or lesion. IMPRESSION: {{Right Left Bilatera l*}} hip greater trochanteric bursitis and mild osteoarthritis [...] time. All questions answered. Ashlee Frost PA-C [address], [place], [address], [facility] [place] [facility] 07/03/2024 12:57:40
[2024-08-28 11:44] LABS: Glucose Fasting 130 mg/dL (60-99)
[2024-08-28 11:49] LABS: Estimated Average Glucose 171 mg/dL; Hemoglobin A1C 251.3368 umol/L; Hemoglobin A1c % 7.6 % (<6.0); Total Hemoglobin (HGBA1C) 4217.4708 umol/L
== END 2024-08-28 08:47 | disposition home or self-care (01) ==
LOC: HO.WFDLDS 08:46
PROVIDERS: Visit Provider Internal Medicine
DX: R73.9 Hyperglycemia, unspecified (principal)
CPT/HCPCS: 36415; 82947; 83036

== ENCOUNTER → 2024-08-30 11:07 | Outpatient (BNVA) | payer MEDICARE, SELFPAY ==
[2023-03-31 07:35] VITALS: BP 100/58; BP 126/68
[2023-07-20 15:41] VITALS: BP 90/50; BMI 30.9
== END ==
PROVIDERS: PCP Internal Medicine; Visit Provider Internal Medicine
DX: E11.9 Type 2 diabetes mellitus without complications (principal); I10 Essential (primary) hypertension
CPT/HCPCS: 99212

== ENCOUNTER 2024-09-07 09:52 | Outpatient (AMB) | payer MEDICARE, SELFPAY ==
[2023-03-31 07:35] VITALS: BP 100/58; BP 126/68
[2023-07-20 15:41] VITALS: BP 90/50; BMI 30.9
--- NOTE | 2024-09-07 09:58 | A.OFFVIS_ITS ---
Vital Signs 09/07/24 10:02 Height 5 ft 9 in Weight 201 lb BMI 29.7 BP 114/68 Blood Pressure Location Lt brachial Position Sitting Pulse 56 Pulse Source Pulse Oximeter Pulse Oximetry (%) 96 Oxygen Delivery Method Room Air Intake Visit Reasons: Shortness of breath Chief Petroleum Engineer Required: No Safety And Security Manager: Safety And Security Manager offered & declined Accompanied by: Self / Same As Patient Allergies BERNABE Inhibitors [BERNABE INHIBITORS] Allergy (Intermediate, Verified 09/07/24 10:07) DEPRESSION latex [LATEX] Allergy (Intermediate, Verified 09/07/24 10:07) RASH terazosin Allergy (Intermediate, Verified 09/07/24 10:07) hives, swollen lips and hoarseness pravastatin [Pravachol] Allergy (Unknown, Verified 09/07/24 10:07) unknown bee pollen [bee stings] Adverse Reaction (Severe, Verified 09/07/24 10:07) Anaphylaxis Beta-Blockers (Beta-Adrenergic Bloc [BETA-BLOCKERS (BETA-ADRENERGIC BLOC] Adverse Reaction (Intermediate, Verified 09/07/24 10:07) DECREASED HR, DEPRESSION amoxicillin Allergy (Intermediate, Uncoded 09/07/24 10:07) hives, swollen lips, and hoarseness cephlex: levofloxacin Allergy (Intermediate, Uncoded 09/07/24 10:07) hives, swollen lips, and hoarseness clindomycin Allergy (Intermediate, Uncoded 09/07/24 10:07) hives, swollen lips, and hoarseness Medication List - Last Reconciled 09/07/24 by Ana Alexis LPN albuterol sulfate 90 mcg/actuation 2 puffs inhalation Q4-6H PRN aspirin (Adult Low Dose Aspirin) 81 mg PO DAILY bisoprolol fumarate 2.5 mg (1/2 x 5 mg) PO DAILY blood sugar diagnostic ([employer] Verio test strips) 1 Strip Once a Day blood-glucose meter ([employer] Verio Meter) to check blood sugars once a day diphenhydramine HCl (Benadryl Allergy) 25 mg PO TID PRN ezetimibe (Zetia) 10 mg PO DAILY finasteride 5 mg PO DAILY fluticasone propionate 50 mcg/actuation (Flonase Allergy Relief) 1 spray intranasal DAILY lancets ([employer] Delica Lancets) to check blood sugars once a day metformin ER 500 mg PO BID nitroglycerin 0.4 mg sublingual Q5M PRN ranolazine ER 500 mg PO BID rosuvastatin 40 mg PO DAILY HPI HPI Shortness of breath: Details: Kartik is a pleasant 79 year old male, never smoker, with underlying h/o adenocarcinoma of colon 2010, hypertension, hyperlipidemia, diabetes, severe CAD, coronary artery bypass grafting 1998, ischemic cardiomyopathy, pacemaker for SSS, and supraventricular tachycardia. Prior cardiac evaluation revealed prior LVEF 35-40%, mild aortic regurgitation, RVSP 34 . Cardiac cath on 02/02/24 revealed PA mean 21 and wedge pressure 12 mmHg, not suggestive of pulmonary hypertension. Prior PFT revealed normal spirometry and mildly decreased DLCO. At the last visit, he continued to report exertional dyspnea specifically with pushing a shopping carriage or snowblower. Otherwise does not have respiratory symptoms when engaging in exercise 3x/week. He denies any cough, wheezing or chest tightness. He was empirically prescribed an albuterol MDI PRN, however has not used. Since the last visit, he was evaluated at [facility] for worsening dyspnea on exertion with associated left sided chest pain. EKG negative for ischemia, trops negative, respiratory panel and CXR negative. He unforunately left after waiting for 3 hours. He then had a follow up with cardiology who felt symptoms could be related to stable angina and started patient on Ranexa. [facility] Medical History Ischemic cardiomyopathy Pacemaker (~2021) Bradycardia (~2021) History of COVID-19 BPH (benign prostatic hyperplasia) Hypertension Obesity Hyperlipidemia associated with type 2 diabetes mellitus Tubular adenoma of colon COVID-19 vaccine administered Diabetes mellitus History of colon cancer (~2010) PVC (premature ventricular contraction) SVT (supraventricular tachycardia) CAD (coronary artery disease) Surgical History History of pacemaker (~2021) History of coronary artery bypass graft x 3 (~1998) History of hernia repair (~2012) History of colonoscopy History of left knee surgery (~2003) History of right knee surgery History of colostomy (~2010) History of partial colectomy (~2011) History of tonsillectomy History of repair of rotator cuff History of cataract surgery (~2013) History of cardiac cath History of colostomy reversal (~2011) Family History Father Cancer, colon Mother Cancer of breast Cancer of lung Sister Cancer Social History Household Members: Spouse Housing: House Are you a primary child care leader to a significant other at home: No Do you presently have visiting nurse or other home services: No Alcohol intake: current Alcohol intake frequency: 0-2 drinks per day Comment: previously medicated with po tylenol Patient Tobacco Use Status: Never used Tobacco Tobacco use type: Cigarette e-Cigarette/Vaping Use: Never Used Second Hand Smoke Exposure: No service: No Current occupational status: retired Cognitive needs: No Hearing needs: No Vision needs: Yes (glasses) Review of Systems Const Denies chills, Denies excessive sweating, Denies fever(s), Denies headache(s) and Denies night sweats Eyes Denies dry eyes, Denies irritation and Denies itchy eyes ENT Reports Normal hearing present, Denies headache(s), Denies nasal congestion, Den ies nasal discharge, Denies post nasal drip and Denies sore throat Card Denies chest pain, Denies chest pain at rest, Denies chest pain with activity, Denies claudication, Denies leg edema, Denies orthopnea and Denies paroxysmal nocturnal dyspnea Resp Denies chest congestion, Denies cough, Denies excessive phlegm production, Denies pain on inspiration, Denies pain with cough, Denies stridor and Denies wheezing Musc Denies myalgias Neuro Reports Normal hearing present and Denies headache(s) Endo Denies excessive sweating Cornel/Lymph Denies lymphadenopathy Aller/Immun Denies itchy eyes, Denies seasonal rhinorrhea and Denies wheezing Physical Exam Vital Signs: Last Vital Signs Pulse 56 09/07/24 10:02 BP 114/68 09/07/24 10:02 Pulse Ox 96 09/07/24 10:02 Oxygen Delivery Method Room Air 09/07/24 10:02 BMI result Body Mass Index 29.7 Const General: cooperative, healthy appearing, comfortable, no acute distress, well developed and alert Orientation/consciousness: patient oriented x3 Limitations: no limitations HEENT Head: Yes normal to inspection, Yes normocephalic and Yes atraumatic Ears: hearing grossly normal bilaterally and external ears normal Eyes General: appearance normal, both eyes and all related structures Eyelids: Yes eyelids normal Sclerae: sclerae normal EOM: EOMs intact bilaterally Neck Neck: Yes normal visual inspection and Yes no lymphadenopathy Lymphatic: no lymphadenopathy noted Chest Chest palpation & inspection: normal inspection of the chest Resp Effort & Inspection: normal respiratory effort, able to speak in complete sentences, no audible wheezes, no cough, no stridor, not tachypneic, no tripod positioning and no use of accessory muscles Auscultation: clear to auscultation bilaterally Cardio Jugular venous distension: no JVD Rate: regular rate Rhythm: regular rhythm Skin Other: warm, dry General skin exam: no rashes or lesions noted Neuro General: patient oriented x3 Cranial nerves: Yes Normal hearing present Cognition (Neuro): normal cognition Gait exam (Neuro): Normal gait present Extrem General: Yes normal to inspection, Yes capillary refill normal, Yes no clubbing, cyanosis or edema and Yes no pedal edema Psych Appearance: grossly normal and well kempt Speech and movement: Normal speech and movement present and Clear speech present Affect: normal affect Attitude: cooperative Thought process: Normal thought process present Thought content: Normal thought content present Insight: Good insight present (Psych) Judgement: Good judgement present (Psych) Results Reviewed Results Reviewed: [address] [address] [address] Scan Report Signed Patient: Kartik Ortiz MR#: [id number] : 1945 Acct:[id number] Age/Sex: 79 / M ADM Date: 06/29/24 Loc: HO.CT Attending Dr: Cora Sommers NP Ordering Physician: Cora Sommers NP Date of Service: 06/29/24 Procedure(s): CT chest wo IV con Accession Number(s): [id number] cc: Mckinley Choi MD; Cora Sommers NP~ EXAMINATION: CT CHEST WITHOUT CONTRAST CLINICAL INFORMATION: Decreased DLCO on pulmonary function studies. COMPARISON: No prior CT available. TECHNIQUE: Multidetector volumetric CT imaging of the chest was done. Axial MIP volume rendering provided. Sagittal and coronal reformatted images were obtained. This CT examination was performed using dose optimization techniques as appropriate, variously including the following: *Automated exposure control *Adjustment of mA and/or kV according to patient size (this includes techniques or standardized protocols for targeted exams where dose is matched to indication/reason for exam; i.e. extremities or head) *Use of iterative reconstruction technique DLP: 228 mGy-cm FINDINGS: PULMONARY NODULES: -There are a few tiny punctate 2 mm calcified granulomas scattered in both lungs. -There are no suspicious pulmonary nodules. LUNGS: -Lungs demonstrate minimal scarring in the anterior right upper lobe, and minor subpleural scarring/atelectasis in the bilateral dependent lower lobes right greater than left. -There is minimal bronchiectasis of the small airways in the lower lobes without thickening. -Small airways otherwise normal. -Central airways are patent and normal. -No consolidations, effusions, or pneumothorax. -No evidence of interstitial lung disease. MEDIASTINUM: -Normal thyroid. -There is no adenopathy in the mediastinum or hilum. -There has been prior median sternotomy, with probable CABG. -Heart size is normal. There is calcification of the mitral annulus. There is no pericardial effusion. -There is a left-sided pacemaker device present with leads extending into the right atrium and right ventricle. -Aorta is normal in caliber and course. -Main pulmonary artery is normal in size. -No esophageal abnormality. CORONARY ARTERY CALCIFICATION: There are heavy 4-vessel coronary calcifications. PLEURA: There is no pleural effusion. No pleural mass or thickening. AXILLA/CHEST WALL: -No masses or lymphadenopathy. There is mild bilateral gynecomastia. -Left upper chest pacemaker generator. UPPER ABDOMEN: There is moderate to severe atrophy of the pancreas. -There is a simple cyst in the upper pole of the right kidney measuring 2.8 cm. -Remainder of the imaged upper abdominal structures appear normal. OSSEOUS STRUCTURES: -No suspicious lytic or blastic bone lesion. There are mild to moderate degenerative changes throughout the spine. -There has been a prior median sternotomy. -There are degenerative changes in both shoulder joints. CT/CT chest wo IV con IMPRESSION: 1. No active pulmonary disease. Only mild foci of scarring right middle lobe and bilateral lower lobes. 2. Mild bronchiectasis in the lower lobes bilaterally, without bronchial wall thickening. 3. Otherwise, no imaging explanation for decreased DLCO on pulmonary function tests. No emphysema, evidence of pulmonary hypertension, or evidence of interstitial lung disease. 4. Pacemaker in place with dual leads right atrium and right ventricle. Prior sternotomy. 5. Additional ancillary findings as discussed in the body of the report. Electronically signed by: Andres Chandler MD 07/30/2024 10:16 AM EST Dictated By: Andres Chandler MD Signed By: <Electronically signed by Andres Chandler MD in OV> 07/30/24 1016 DD/ 9 TD/TT: 06/29/24926 Medical Information Officer: Assessment & Plan Assessment & Plan (1) Dyspnea: Code(s): R06.00 - Dyspnea, unspecified Category: Medical (2) Decreased diffusion capacity: Code(s): R94.2 - Abnormal results of pulmonary function studies Category: Medical Plan Encouraged patient to use albuterol MDI prior to engaging in activity to see if this alleviates any dyspnea, however unlikely as this may be related to cardiac component. He is aware to call if symptoms change. Patient had chest CT performed, which revealed scattered granulomas, heavily calcified coronary arteries as well as moderate to severe atrophy of pancreas. Will refer to GI for further evaluation. Will also repeat in one year to assess stability. All questions were answered and patient is in agreement of plan. Will follow up in 3 months or sooner if needed. Orders: Orders CT chest wo IV con 10 Months R91.8 - Other nonspecific abnormal finding of lung field Referrals Gastroenterology Referral K86.89 - Other specified diseases of pancreas Coding Level of Care Code Est Pt Level 4 (81337) Diagnoses Dyspnea R06.00 Decreased diffusion capacity R94.2
[2024-09-07 10:02] VITALS: BP 114/68; PULSE 56; O2SAT 96; BMI 29.7
== END 2024-09-07 10:41 | disposition home or self-care (01) ==
PROVIDERS: PCP Internal Medicine; Visit Provider Nurse Practitioner Family
DX: R06.00 Dyspnea, unspecified (principal); R94.2 Abnormal results of pulmonary function studies
CPT/HCPCS: 99214

== ENCOUNTER → 2024-09-07 09:52 | Outpatient (BNVA) | payer MEDICARE, SELFPAY ==
[2023-03-31 07:35] VITALS: BP 100/58; BP 126/68
[2023-07-20 15:41] VITALS: BP 90/50; BMI 30.9
== END ==
PROVIDERS: PCP Internal Medicine; Visit Provider Nurse Practitioner Family
DX: R06.00 Dyspnea, unspecified (principal); R94.2 Abnormal results of pulmonary function studies; K86.89 Other specified diseases of pancreas
CPT/HCPCS: 99212

== ENCOUNTER → 2024-10-02 23:59 | Outpatient (BNV) | payer MEDICARE, SELFPAY ==
[2023-03-31 07:35] VITALS: BP 100/58; BP 126/68
[2023-07-20 15:41] VITALS: BP 90/50; BMI 30.9
--- NOTE | 2024-10-08 12:34 | MHC.OFFVIS ---
Intake Visit Reasons: Remote device check- [facility] Allergies BERNABE Inhibitors [BERNABE INHIBITORS] Allergy (Intermediate, Verified 09/07/24 10:07) DEPRESSION latex [LATEX] Allergy (Intermediate, Verified 09/07/24 10:07) RASH terazosin Allergy (Intermediate, Verified 09/07/24 10:07) hives, swollen lips and hoarseness pravastatin [Pravachol] Allergy (Unknown, Verified 09/07/24 10:07) unknown bee pollen [bee stings] Adverse Reaction (Severe, Verified 09/07/24 10:07) Anaphylaxis Beta-Blockers (Beta-Adrenergic Bloc [BETA-BLOCKERS (BETA-ADRENERGIC BLOC] Adverse Reaction (Intermediate, Verified 09/07/24 10:07) DECREASED HR, DEPRESSION amoxicillin Allergy (Intermediate, Uncoded 09/07/24 10:07) hives, swollen lips, and hoarseness cephlex: levofloxacin Allergy (Intermediate, Uncoded 09/07/24 10:07) hives, swollen lips, and hoarseness clindomycin Allergy (Intermediate, Uncoded 09/07/24 10:07) hives, swollen lips, and hoarseness [facility] Medical History Ischemic cardiomyopathy Pacemaker (~2021) Bradycardia (~2021) History of COVID-19 BPH (benign prostatic hyperplasia) Hypertension Obesity Hyperlipidemia associated with type 2 diabetes mellitus Tubular adenoma of colon COVID-19 vaccine administered Diabetes mellitus History of colon cancer (~2010) PVC (premature ventricular contraction) SVT (supraventricular tachycardia) CAD (coronary artery disease) Surgical History History of pacemaker (~2021) History of coronary artery bypass graft x 3 (~1998) History of hernia repair (~2012) History of colonoscopy History of left knee surgery (~2003) History of right knee surgery History of colostomy (~2010) History of partial colectomy (~2011) History of tonsillectomy History of repair of rotator cuff History of cataract surgery (~2013) History of cardiac cath History of colostomy reversal (~2011) Family History Father Cancer, colon Mother Cancer of breast Cancer of lung Sister Cancer Social History Household Members: Spouse Housing: House Are you a primary healthcare consulting manager to a significant other at home: No Do you presently have visiting nurse or other home services: No Alcohol intake: current Alcohol intake frequency: 0-2 drinks per day Comment: previously medicated with po tylenol Patient Tobacco Use Status: Never used Tobacco Tobacco use type: Cigarette e-Cigarette/Vaping Use: Never Used Second Hand Smoke Exposure: No service: No Current occupational status: retired Cognitive needs: No Hearing needs: No Vision needs: Yes (glasses) Office Procedures Cardiac Device Check Cardiac Device Check Details: Remote pacemaker report generated 10/02/2024. Pacemaker function is adequate. High ventricular rate either consistent with PMT and/or SVT [id number] Cardiac Device Interrogation, pacemaker Procedure code (CPT) selection complete Assessment & Plan Assessment & Plan (1) Pacemaker: Onset Date: ~2021 Comment: ([facility] DCPP - placed 06/18/22) Code(s): Z95.0 - Presence of cardiac pacemaker Category: Medical Plan: See above Coding Level of Care Code Procedure Only Diagnoses Pacemaker Z95.0 CPT Codes Cardiac Device Check - Cardiac Device 12: [id number] Cardiac Device Interrogation, pacemaker ([id number])
== END ==
PROVIDERS: PCP Internal Medicine; Visit Provider Internal Medicine Cardiovascular Disease
DX: R00.0 Tachycardia, unspecified (principal); Z95.0 Presence of cardiac pacemaker
CPT/HCPCS: 93294

== ENCOUNTER 2024-10-22 09:17 | Outpatient (AMB) | payer MEDICARE, SELFPAY ==
[2023-03-31 07:35] VITALS: BP 100/58; BP 126/68
[2023-07-20 15:41] VITALS: BP 90/50; BMI 30.9
[2024-10-22 09:24] VITALS: BP 112/70; PULSE 60; TEMP 36.7; O2SAT 96; BMI 29.7
--- NOTE | 2024-10-22 09:24 | MHC.OFFWIV ---
Intake Vital Signs 10/22/24 09:24 Height 5 ft 9 in Weight 201 lb BMI 29.7 BP 112/70 Blood Pressure Location Lt brachial Position Sitting Pulse 60 Pulse Source Pulse Oximeter Temp 98.1 F Temp Source Oral Pulse Oximetry (%) 96 Intake Visit Reasons: EP Sinus congestion/infection? Intake Note: pt is here for sinus congestion, possible sinus infection Patient Tobacco Use Status: Never used Tobacco Accompanied by: Self / Same As Patient Allergies BERNABE Inhibitors [BERNABE INHIBITORS] Allergy (Intermediate, Verified 10/22/24 09:24) DEPRESSION latex [LATEX] Allergy (Intermediate, Verified 10/22/24 09:24) RASH terazosin Allergy (Intermediate, Verified 10/22/24 09:24) hives, swollen lips and hoarseness pravastatin [Pravachol] Allergy (Unknown, Verified 10/22/24 09:24) unknown bee pollen [bee stings] Adverse Reaction (Severe, Verified 10/22/24 09:24) Anaphylaxis Beta-Blockers (Beta-Adrenergic Bloc [BETA-BLOCKERS (BETA-ADRENERGIC BLOC] Adverse Reaction (Intermediate, Verified 10/22/24 09:24) DECREASED HR, DEPRESSION amoxicillin Allergy (Intermediate, Uncoded 09/07/24 10:07) hives, swollen lips, and hoarseness cephlex: levofloxacin Allergy (Intermediate, Uncoded 09/07/24 10:07) hives, swollen lips, and hoarseness clindomycin Allergy (Intermediate, Uncoded 09/07/24 10:07) hives, swollen lips, and hoarseness Do you need a note to return to daycare/school/sports/work: No HPI HPI Comments History of Present Illness Details History - The patient is a 79-year-old male presenting with a sinus and nasal infection characterized by a duration of three weeks. - Symptoms include persistent nasal itching, redness, and mild fatigue, affecting sleep with no headache or ear pain reported. - Initial presentation included itching in nature but not associated with pain or burning, denies fluid-filled vesicles. - The patient employed previous treatments such as mupirocin ointment and noted 3 wks of use needed for recovery in the past - Treatments attempted by the patient include the use of bacitracin in addition to the previously prescribed ointments. Physical Exam General: Cooperative, healthy appearing, comfortable and no acute distress Orientation/consciousness: Patient oriented x3 Limitations: No limitations Head: Normal to inspection Ears: Hearing grossly normal bilaterally, external ears normal and TM's normal bilaterally Nose: slightly raised lesions with erythema surrounding base of nares, extending up to dorsum and bridge. No nasal discharge present Face and sinus: Normal facial exam and Yes sinuses nontender Mouth: Normal oral and palatal mucosa present and moist mucous membranes Eyes: Appearance normal, both eyes and all related structures Neck: Normal visual inspection Respiratory: Normal respiratory effort, able to speak in complete sentences, Actively coughing, no respiratory distress, not tachypneic, no tripod positioning and no use of accessory muscles Skin: as above Neuro: Patient oriented x3 Extremities: Normal to inspection and Yes no clubbing, cyanosis or edema [facility] Medical History Ischemic cardiomyopathy Pacemaker (~2021) Bradycardia (~2021) History of COVID-19 BPH (benign prostatic hyperplasia) Hypertension Obesity Hyperlipidemia associated with type 2 diabetes mellitus Tubular adenoma of colon COVID-19 vaccine administered Diabetes mellitus History of colon cancer (~2010) PVC (premature ventricular contraction) SVT (supraventricular tachycardia) CAD (coronary artery disease) Surgical History History of pacemaker (~2021) History of coronary artery bypass graft x 3 (~1998) History of hernia repair (~2012) History of colonoscopy History of left knee surgery (~2003) History of right knee surgery History of colostomy (~2010) History of partial colectomy (~2011) History of tonsillectomy History of repair of rotator cuff History of cataract surgery (~2013) History of cardiac cath History of colostomy reversal (~2011) Family History Father Cancer, colon Mother Cancer of breast Cancer of lung Sister Cancer Social History Household Members: Spouse Housing: House Are you a primary animal care provider to a significant other at home: No Do you presently have visiting nurse or other home services: No Alcohol intake: current Alcohol intake frequency: 0-2 drinks per day Comment: previously medicated with po tylenol Patient Tobacco Use Status: Never used Tobacco Tobacco use type: Cigarette e-Cigarette/Vaping Use: Never Used Second Hand Smoke Exposure: No service: No Current occupational status: retired Cognitive needs: No Hearing needs: No Vision needs: Yes (glasses) Review of Systems Const All systems reviewed & are unremarkable except as noted in HPI and below Physical Exam Vital Signs: Last Vital Signs Temp 98.1 F 10/22/24 09:24 Pulse 60 10/22/24 09:24 BP 112/70 10/22/24 09:24 Pulse Ox 96 10/22/24 09:24 BMI result Body Mass Index 29.7 Assessment & Plan Assessment & Plan (1) Impetigo: Code(s): L01.00 - Impetigo, unspecified Plan: Mupirocin ointment was prescribed for application thrice daily for one week to manage the nasal infection. The patient was advised to maintain optimal blood glucose levels to aid healing. In the event of insufficient improvement, they were informed about the option to try alternative antibiotics, such as clindamycin, and to return should the condition not improve or worsen. The prescription details were confirmed for pickup at their preferred pharmacy. Can use hydrocortisone cream in between mupirocin application for itching. (2) Acute bacterial sinusitis: Code(s): J01.90 - Acute sinusitis, unspecified; B96.89 - Other specified bacterial agents as the cause of diseases classified elsewhere Plan: An additional prescription of Augmentin for seven days was provided to address the sinus elements of the condition. Plan Patient was informed and verbally consented to the use of an ambient scribe for clinic note documentation during this visit Medications: New mupirocin 2% 1 appl topical TID 22 grams 0RF amoxicillin-pot clavulanate 875-125 mg 1 tab PO Q12H 14 tabs 0RF Coding Level of Care Code Est Pt Level 3 (32160) Diagnoses Impetigo L01.00 Acute bacterial sinusitis J01.90; B96.89
--- OUTSIDE RECORDS SUMMARY | 2024-10-22 09:59 | XMS_ITS | Patient Health Record ---
Author Organization Ivan Llanes III, MD Address [address] [place] [address] Care Team Providers Care Traffic Maintenance Officer Name Role Phone Mckinley Choi MD Primary Care Provider Unavaila Ivan Cisse Unavailable [phone] Allergies Allergen (clinical drug ingredient) Drug/Non Drug [...] Problem Status W/U Status Risk Notes Problem 320857201 Obesity (E66.9) Active confirmed He has lost 3 pounds. We discussed diet and nutrition today. We reviewed his weight loss strategy. We made a plan to lose weight at a rate of one half of a pound per week. Problem 439993539 BPH (benign prostatic hyperplasia) (N40.0) Active confirmed He is taking 3 medications arises from sleep 4 times a night. He will follow up with primary care and urology. Problem 895835562 Osteoarthritis of multiple joints, unspecified osteoarthritis type (M15.9) Active confirmed He has mild symptoms arthritis in his knees. He is taking ibuprofen with good relief. Problem 492364423 Erythrocytosis (D75.1) Active confirmed Numerous recent CBC determinations show his hematocrit to be normal. Problem 957000605 Coronary artery disease involving [place]' coronary artery without angina pectoris, unspecified whether [place]' or transplanted heart (I25.10) Active confirmed Since his [facility] visit he has had no episodes of angina with exertion or at rest. There is no need to change his regimen at this time. Problem 359458153 Malignant neoplasm of colon, unspecified part of colon (C18.9) Active confirmed There is no sign of disease recurrence or of a new primary tumor. He will continue with surveillance and periodic colonoscopies. Problem 012239247 Hyperlipidemia type II (E78.01) Active confirmed His [...] Date Provider Diagnosis Ivan Llanes III, MD [address] [place] [address] DR [place], [place] [address] 04/06/2024 Ivan Llanes Malignant neoplasm o f colon, unspecified part of colon C18.9 ; BPH (benign prostatic hyperplasia) N40.0 ; Osteoarthritis of multiple joints, unspecified osteoarthritis type M15.9 ; Coronary artery disease involving [place]ni' coronary artery without angina pectoris, unspecified whether [place]' or transplanted heart I25.10 and Obesity E66.9 [...] good relief. 04/06/2024 Coronary artery disease involving [place]' coronary artery without angina pectoris, unspecified whether [place] de[place]ni' or transplanted heart (ICD-10 - I25.10) Since [...] Details Provider Name:Ivan Llanes, 04/04/2025 11:00:00 AM, [address] [place] [address] [address], [place], [address], Insurance Providers Payer Name Payer Address Payer Phone Subscriber Number Group Number Insured Name Patient Relationship to Insured Coverage Start Date Coverage End Date MEDICARE NGS [address] [place] [phone] [id number] Kartik Ortiz Self - patient is the insured [facility] [address] [place], [place] [id number] [phone] [id number] Kartik Ortiz Self - patient is the insured Medical (General) History Medical History History ICD Code coronary artery disease CABG 1998 hyperlipidemia 09/2011 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
--- OUTSIDE RECORDS SUMMARY | 2024-10-22 09:59 | XMS_ITS ---
Author Organization Ivan Llanes III, MD Address [address] [place] [address] Care Team Providers Care Quality Control Chemist Name Role Phone Mckinley Choi MD Primary Care Provider Unavaila Ivan Cisse Unavailable [phone] Allergies Allergen (clinical drug ingredient) Drug/Non Drug [...] Date Provider Diagnosis Ivan Llanes III, MD [address] [place] [address] [place] [address] 04/06/2024 Ivan Llanes Malignant neoplasm o f colon, unspecified part of colon C18.9 ; BPH (benign prostatic hyperplasia) N40.0 ; Osteoarthritis of multiple joints, unspecified osteoarthritis type M15.9 ; Coronary artery disease involving [place] coronary artery without angina pectoris, unspecified whether blackfeet or transplanted heart I25.10 and Obesity E66.9 [...] good relief. 04/06/2024 Coronary artery disease involving [place] coronary artery without angina pectoris, unspecified whether blackfeet or transplanted heart (ICD-10 - I25.10) Since [...] v Provider Name:Ivan Llanes, 04/04/2025 11:00:00 AM, [address] [place] [address] [address], [place], [address], Progress Notes * Kartik CARRASCODOB: [birth year] (79 yo M)Acc No.[id number]:04/06/2024 Progress Notes Patient:?Kartik Carrasco Provider:?Ivan Llanes MD :1945???Age:79 Y???Sex:Male Aristeo e:04/06/2024 Address: [address], [facility], [id number] Pcp:Mckinley Choi MD Subjective: * Chief Complaints: [...] 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 He was born [place], [place]. * Medications:?TakingNitroglyc mani 0.4 MG Tablet [...] ibuprofen with good relief.?4.?Coronary artery disease involving [place] coronary artery without angina pectoris, unspecified whether blackfeet or transplanted heart - I25.10, Since his [...] Provider:?Ivan Llanes MD Date:?03/10 Generated for Liam bustillo/Dajuan/eTsahlinismitting on:?10/22/2024 09:58 AM EDT History and Physical Notes * HPI (History of Present Illness) Category Sub-Category Detail Notes COVID-19 Screening Questions Have you had any new onset fever, chills, cough, congestion, sore throat, shortness of breath, muscle aches?: No Have you been exposed to the virus withi n the last 10 days?: No Have you travelled internationally in [facility] last 10 days?: No Have you [...]
== END 2024-10-22 09:53 | disposition home or self-care (01) ==
PROVIDERS: PCP Internal Medicine; Visit Provider Physician Assistant
DX: L01.00 Impetigo, unspecified (principal); J01.90 Acute sinusitis, unspecified; B96.89 Other specified bacterial agents as the cause of diseases classified elsewhere

== ENCOUNTER → 2024-10-22 09:17 | Outpatient (BNVA) | payer MEDICARE, SELFPAY ==
[2023-03-31 07:35] VITALS: BP 100/58; BP 126/68
[2023-07-20 15:41] VITALS: BP 90/50; BMI 30.9
== END ==
PROVIDERS: PCP Internal Medicine; Visit Provider Physician Assistant
DX: L01.00 Impetigo, unspecified (principal); J01.90 Acute sinusitis, unspecified; B96.89 Other specified bacterial agents as the cause of diseases classified elsewhere
CPT/HCPCS: 99212

== ENCOUNTER → 2024-10-31 09:05 | Outpatient (REF) | payer MEDICARE, SELFPAY ==
[2023-03-31 07:35] VITALS: BP 100/58; BP 126/68
[2023-07-20 15:41] VITALS: BP 90/50; BMI 30.9
--- NOTE | 2024-10-31 09:08 | CA_ITS ---
Transthoracic Echocardiogram Patient (Last, First, Middle): Kartik Ortiz, Gender: Male Date of : 1945 Age: 79 Procedure Date: 10/31/2024 Procedure Type: Transthoracic Echocardiogram Location: OP Height: 175.26 cm Weight: 90.72 kg BSA: 2.07 m2 Heart Rate: bpm BP: 120 / 80 mmHg Completion Supervisor: CARLOS Referring MD: Marquise Espinoza MD Electroencephalographic Technologist: Marquise Espinoza MD Symptoms: I25.5 - Ischemic cardiomyopathy Study Quality: Fair, contrast ECG Rhythm: Sinus Conclusions: - 1. Moderately reduced LV ejection fraction of 35-40% with underlying regional wall motion abnormality consistent with ischemic cardiomyopathy 2. Mild aortic regurgitation 3. Mildly dilated ascending aorta at 3.9 cm 4. Normal RV systolic pressure Findings Procedure Information Contrast agent, definity, is being given per protocol without apparent complications. Left Ventricle Normal left ventricular cavity size. There is normal left ventricular wall thickness. The left ventricular systolic function is moderately decreased. The visually estimated ejection fraction is between 35-40%. Spectral Doppler is indicative of an impaired relaxation filling pattern. E/E prime ratio is <8, consistent with normal filling pressures. Evidence suggests grade I (mild) diastolic dysfunction. Wall Motion Rest Echo Findings The mid inferior, mid inferoseptal, and basal inferolateral segments are hypokinetic. The basal inferior and basal inferoseptal segments are akinetic. All other scored wall segments showed normal motion. Right Ventricle Normal right ventricular cavity size. There is mild to moderately decreased right ventricular systolic function. There is a pacemaker wire seen in the right ventricle. Atria The left atrium is mildly dilated. Interatrial shunt cannot be excluded. The right atrium was not well visualized. A pacemaker wire is identified in the right atrium. Aortic Valve There is mild calcification of the aortic valve. There is no aortic valve stenosis. There is mild aortic valve regurgitation. Mitral Valve There is mild anterior and moderate posterior mitral leaflet thickening. There is moderate mitral annular calcification. There is trace mitral valve regurgitation. There is no mitral valve stenosis. Pulmonic Valve The pulmonic valve is likely normal. Tricuspid Valve Likely normal tricuspid valve structure and function. There is mild tricuspid valve regurgitation. The right ventricular systolic pressure is normal. The right ventricular systolic pressure is 23 mmHg. Normal right atrial pressure. There is no evidence of pulmonary hypertension. Great Vessels The pulmonary artery was not well visualized. There is mild dilatation of the ascending aorta measuring 3.90 cm. Small plaque is seen in the sinuses of Valsalva. Venous The inferior vena cava is normal in size and collapses greater than 50% with inspiration. Pericardium/Pleural The pericardium was not well visualized. Prior Study Comparison No significant change compared to prior study dated: 01/10/2024. Measurements 2D Linear Measurements IVSd: 0.90 0.6-0.9/0.6-1.0 cm LVIDd: 5.26 3.9-5.3/4.2-5.9 cm LVIDd Index: 2.54 2.4-3.2/2.2-3.1 cm/m2 LVIDs: 4.64 2.0-3.6 cm LVPWd: 0.89 0.7-1.1 cm LA Diam: 4.20 2.7-3.8/3.0-4.0 cm LAIDs Index: 2.03 1.5-2.3 cm/m2 LV Mass: 211.83 67-162/88-224 g LV Mass Index: 102.33 43-95/49-115 g/m2 LVOT Diam: 2.50 3.0+(-)1.3 cm 2D Systolic Function EF 4C: 38.30 >55% EF 2C: 42.70 >55% EF BiP: 38.70 >55% Mitral Valve MV Pk E: 0.38 MV PK A: 0.55 MV Decel Time: 330.00 E/A: 0.70 E'Lateral: 4.96 E'Medial: 3.42 E/E' Med: 11.20 E/E' Lat: 7.70 PHT: 97.00 MVA PHT: 2.27 Decel Doddridge: 1.67 Aortic Valve AoV Pk Otoniel: 1.13 AoV Mn Otoniel: 0.78 AoV VTI: 0.26 AoV Pk Grad: 5.00 Aov Mn Grad: 3.00 NGHIA Cont.VTI: 3.17 LVOT LVOT Pk Otoniel: 0.73 LVOT Mn Otoniel: 0.40 LVOT VTI: 0.17 LVOT Pk Grad: 2.00 LVOT Mn Grad: 1.00 LVOT Diam: 2.50 LVOT Area: 4.91 Diastolic Function MV Pk E: 0.38 MV Pk A: 0.55 E/A: 0.70 E'Medial: 3.42 E/E' Med: 11.20 E' Laterial: 4.96 E/E' Lat: 7.70 Right Ventricle TAPSE (mm): 12.00 TVS' Otoniel: 8.63 Tricuspid Valve TR Pk Otoniel: 2.26 TR Pk Grad: 20.00 RA Press: 3.00 RVSP: 23.00 Great Vessels Aorta Sinus of Valsalva: 3.78 2.0-3.[address] Ridge: 3.16 1.7-3.4 cm Ao Asc: 3.90 2.1-3.4 cm Ao Arch: 3.20 Updated in Other Vendor System with Status of Final Marquise Espinoza MD electronically signed on 11/01/2024 3:07:51 PM with status of Final
--- OUTSIDE RECORDS SUMMARY | 2024-10-31 09:56 | XMS_ITS | Patient Health Record ---
Author Organization Ivan Llanes III, MD Address [address] [place] [address] Care Team Providers Care Privacy Specialist Name Role Phone Mckinley Choi MD Primary Care Provider Unavaila Ivan Cisse Unavailable [phone] Allergies Allergen (clinical drug ingredient) Drug/Non Drug [...] Problem Status W/U Status Risk Notes Problem 215914155 Obesity (E66.9) Active confirmed He has lost 3 pounds. We discussed diet and nutrition today. We reviewed his weight loss strategy. We made a plan to lose weight at a rate of one half of a pound per week. Problem 490885332 BPH (benign prostatic hyperplasia) (N40.0) Active confirmed He is taking 3 medications arises from sleep 4 times a night. He will follow up with primary care and urology. Problem 528213292 Osteoarthritis of multiple joints, unspecified osteoarthritis type (M15.9) Active confirmed He has mild symptoms arthritis in his knees. He is taking ibuprofen with good relief. Problem 802230413 Erythrocytosis (D75.1) Active confirmed Numerous recent CBC determinations show his hematocrit to be normal. Problem 486646881 Coronary artery disease involving [place] coronary artery without angina pectoris, unspecified whether [place] or transplanted heart (I25.10) Active confirmed Since his [facility] visit he has had no episodes of angina with exertion or at rest. There is no need to change his regimen at this time. Problem 846399085 Malignant neoplasm of colon, unspecified part of colon (C18.9) Active confirmed There is no sign of disease recurrence or of a new primary tumor. He will continue with surveillance and periodic colonoscopies. Problem 758559480 Hyperlipidemia type II (E78.01) Active confirmed His [...] Date Provider Diagnosis Ivan Llanes III, MD [address] [place] [address] [address] MAHER, [place] [address] 04/06/2024 Ivan Llanes Malignant neoplasm o f colon, unspecified part of colon C18.9 ; BPH (benign prostatic hyperplasia) N40.0 ; Osteoarthritis of multiple joints, unspecified osteoarthritis type M15.9 ; Coronary artery disease involving [place] coronary artery without angina pectoris, unspecified whether [place] or transplanted heart I25.10 and Obesity E66.9 [...] good relief. 04/06/2024 Coronary artery disease involving [place] coronary artery without angina pectoris, unspecified whether [place] or transplanted heart (ICD-10 - I25.10) Since [...] Details Provider Name:Ivan Llanes, 04/04/2025 11:00:00 AM, [address] [place] [address] [address], [place], [address], Insurance Providers Payer Name Payer Address Payer Phone Subscriber Number Group Number Insured Name Patient Relationship to Insured Coverage Start Date Coverage End Date MEDICARE NGS [address] [place] [id number] Kartik Ortiz Self - patient is the insured [facility] [address] [place], [place] [id number] Kartik Ortiz Self - patient is the insured Medical (General) History Medical History History ICD Code coronary artery disease CABG 1998 hyperlipidemia 09/2011 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
== END ==
LOC: HO.CARD 09:05
PROVIDERS: PCP Internal Medicine; Visit Provider Internal Medicine Cardiovascular Disease
DX: I25.5 Ischemic cardiomyopathy (principal)
CPT/HCPCS: 93306; Q9957

== ENCOUNTER → 2024-10-31 09:08 | Outpatient (BNV) | payer MEDICARE, SELFPAY ==
[2023-03-31 07:35] VITALS: BP 100/58; BP 126/68
[2023-07-20 15:41] VITALS: BP 90/50; BMI 30.9
== END ==
PROVIDERS: PCP Internal Medicine; Visit Provider Internal Medicine Cardiovascular Disease
DX: I51.89 Other ill-defined heart diseases (principal); I25.5 Ischemic cardiomyopathy; Z95.0 Presence of cardiac pacemaker; I36.1 Nonrheumatic tricuspid (valve) insufficiency
CPT/HCPCS: 93306

== ENCOUNTER 2024-11-12 10:53 | Outpatient (AMB) | payer MEDICARE, SELFPAY ==
[2023-03-31 07:35] VITALS: BP 100/58; BP 126/68
[2023-07-20 15:41] VITALS: BP 90/50; BMI 30.9
[2024-11-12 11:00] VITALS: BP 110/62; PULSE 61; BMI 29.6
--- NOTE | 2024-11-12 11:00 | A.OFFVIS_ITS ---
Vital Signs 11/12/24 11:00 Height 5 ft 9 in Weight 200 lb 9.93 oz BMI 29.6 BP 110/62 Blood Pressure Location Lt brachial Position Sitting Pulse 61 Intake Visit Reasons: 6 mth f/up-echo/ st-judecheck Intake Note: 6 month follow-up St Jorje Check after echo c/o increased sob and dizziness with vomitting Capital Project Engineer Required: No Filling Station Attendant: Filling Station Attendant Present Accompanied by: Spouse Allergies BERNABE Inhibitors [BERNABE INHIBITORS] Allergy (Intermediate, Verified 10/22/24 09:24) DEPRESSION latex [LATEX] Allergy (Intermediate, Verified 10/22/24 09:24) RASH terazosin Allergy (Intermediate, Verified 10/22/24 09:24) hives, swollen lips and hoarseness pravastatin [Pravachol] Allergy (Unknown, Verified 10/22/24 09:24) unknown bee pollen [bee stings] Adverse Reaction (Severe, Verified 10/22/24 09:24) Anaphylaxis Beta-Blockers (Beta-Adrenergic Bloc [BETA-BLOCKERS (BETA-ADRENERGIC BLOC] Adverse Reaction (Intermediate, Verified 10/22/24 09:24) DECREASED HR, DEPRESSION amoxicillin Allergy (Intermediate, Uncoded 09/07/24 10:07) hives, swollen lips, and hoarseness cephlex: levofloxacin Allergy (Intermediate, Uncoded 09/07/24 10:07) hives, swollen lips, and hoarseness clindomycin Allergy (Intermediate, Uncoded 09/07/24 10:07) hives, swollen lips, and hoarseness Medication List - Last Reconciled 11/12/24 by Marquise Espinoza MD albuterol sulfate 90 mcg/actuation 2 puffs inhalation Q4-6H PRN aspirin (Adult Low Dose Aspirin) 81 mg PO DAILY bisoprolol fumarate 2.5 mg (1/2 x 5 mg) PO DAILY blood sugar diagnostic (Zazengo Verio test strips) 1 Strip Once a Day blood-glucose meter (Zazengo Verio Meter) to check blood sugars once a day diphenhydramine HCl (Benadryl Allergy) 25 mg PO TID PRN ezetimibe (Zetia) 10 mg PO DAILY finasteride 5 mg PO DAILY fluticasone propionate 50 mcg/actuation (Flonase Allergy Relief) 1 spray intranasal DAILY lancets (Zazengo Delica Lancets) to check blood sugars once a day metformin 500 mg PO BID mupirocin 2% 1 appl topical TID nitroglycerin 0.4 mg sublingual Q5M PRN ranolazine ER 500 mg PO BID rosuvastatin 40 mg PO DAILY HPI Comments Details: Kartik ramos comes for follow-up. He is accompanied by his . Continues her symptoms fatigue. Also has occasionally exertional shortness of breath. Says symptoms of shortness of breath is worse on some days. Otherwise no orthopnea, PND, leg edema. No abdominal distension. No prolonged palpitation irregular heartbeat. At 5 episodes of dizziness he describes as feeling the wall turning around followed by vomiting. This is 1 episode was after he was doing a sit up and he got the symptoms. Does not have any clear orthostatic lightheadedness. No syncopal episodes. No clear chest pain. Comes for follow-up. Recent echocardiogram shows persistent moderately reduced LV ejection fraction 35-40% [facility] Medical History Ischemic cardiomyopathy Pacemaker (~2021) Bradycardia (~2021) History of COVID-19 BPH (benign prostatic hyperplasia) Hypertension Obesity Hyperlipidemia associated with type 2 diabetes mellitus Tubular adenoma of colon COVID-19 vaccine administered Diabetes mellitus History of colon cancer (~2010) PVC (premature ventricular contraction) SVT (supraventricular tachycardia) CAD (coronary artery disease) Surgical History History of pacemaker (~2021) History of coronary artery bypass graft x 3 (~1998) History of hernia repair (~2012) History of colonoscopy History of left knee surgery (~2003) History of right knee surgery History of colostomy (~2010) History of partial colectomy (~2011) History of tonsillectomy History of repair of rotator cuff History of cataract surgery (~2013) History of cardiac cath History of colostomy reversal (~2011) Family History Father Cancer, colon Mother Cancer of breast Cancer of lung Sister Cancer Social History Household Members: Spouse Housing: House Are you a primary district manager primary care sales to a significant other at home: No Do you presently have visiting nurse or other home services: No Alcohol intake: current Alcohol intake frequency: 0-2 drinks per day Comment: previously medicated with po tylenol Patient Tobacco Use Status: Never used Tobacco Tobacco use type: Cigarette e-Cigarette/Vaping Use: Never Used Second Hand Smoke Exposure: No service: No Current occupational status: retired Cognitive needs: No Hearing needs: No Vision needs: Yes (glasses) Review of Systems Const Denies chills, Denies fatigue, Denies fever(s), Denies frequent falls, Denies weakness, Denies weight gain and Denies weight loss ENT Denies dizziness Card Denies chest pain, Denies leg edema, Denies lightheadedness, Denies palpitations, Denies dyspnea, Denies dyspnea on exertion, Denies orthopnea and Denies other (loss of consciousness) Resp Denies cough, Denies dyspnea and Denies dyspnea on exertion GI Denies hematochezia and Denies change in stool character Musc Denies abnormal gait, Denies muscle weakness, Denies numbness, Denies radiating pain into limb and Denies tingling Neuro Denies abnormal gait, Denies dizziness, Denies frequent falls, Denies numbness, Denies tingling and Denies weakness Endo Denies fatigue and Denies palpitations Physical Exam Vital Signs: Last Vital Signs Pulse 61 11/12/24 11:00 BP 110/62 11/12/24 11:00 BMI result Body Mass Index 29.6 Const General: cooperative, healthy appearing, comfortable and no acute distress Orientation/consciousness: patient oriented x3 Neck Neck: Yes normal visual inspection Resp Effort & Inspection: normal respiratory effort Auscultation: clear to auscultation bilaterally, no rales, no rhonchi and no wheezes Cardio Jugular venous distension: no JVD Rate: regular rate Rhythm: regular rhythm Heart sounds: S1 normal heart sound present, S2 normal heart sound present, no murmurs and no rubs Neuro General: patient oriented x3 Extrem General: Yes normal to inspection, No no pedal edema and No calf tenderness Psych Appearance: grossly normal Mental Status: mental status grossly normal Speech and movement: Normal speech and movement present Office Procedures Cardiac Device Check Cardiac Device Check Details: Dual-chamber [place] pacemaker in place. Programmed in DDDR at 60 beats per minute. Atrial pacing 67% of the time. No significant arrhythmias noted. During monitoring noted isolated PVCs. Some episodes of PMT noted. Atrial and ventricular pacing thresholds excellent and in auto capture mode. Atrial ventr icular sensing is excellent. Pacing lead impedance is stable. Battery life is 828 and half years [id number]-[id number] Cardiac Device Check, pacemaker dual lead Procedure code (CPT) selection complete Assessment & Plan Assessment & Plan (1) Ischemic cardiomyopathy: Code(s): I25.5 - Ischemic cardiomyopathy Category: Medical Plan: Ischemic cardiomyopathy with moderate LV systolic dysfunction pursue symptoms exertional shortness of breath which appears to be multifactorial. Related to advancing age and deconditioning as well as cardiomyopathy as well as underlying possible lung issues. Clinically no signs of heart failure. He was not been able to tolerate much neurohormonal modulation due to low blood pressure orthostatic intolerance. Continue low-dose bisoprolol therapy at this point time. Signs and symptoms of heart failure were discussed. He understands agrees. He is encouraged to maintain activity level as tolerated and increase aerobic training. (2) CAD (coronary artery disease): Comment: (Hx CABG x 3 - FIELDS to LAD, radial graft to Ramus, free GOYO to RCA - 1998) Code(s): I25.10 - Atherosclerotic heart disease of [place] coronary artery without angina pectoris Category: Medical Plan: CAD with remote three-vessel coronary artery bypass grafting with patent graft with circumflex territory disease. Continue aggressive medical therapy. Continue on multiple antianginal therapy including bisoprolol as well as ranolazine. Continue aggressive risk factor modification currently on high- intensity statin with ezetimibe. Target goal LDL closer to 55 mg/dL. Continue aggressive diabetes management. Increase activity level as tolerated. (3) SVT (supraventricular tachycardia): Code(s): I47.1 - Supraventricular tachycardia Category: Medical Plan: SVT which has been suppressed. Continue bisoprolol therapy. Avoidance of stimulants was discussed. No other pharmacotherapy recommended. (4) Pacemaker: Onset Date: ~2021 Comment: ([facility] Jorje DCPP - placed 06/18/22) Code(s): Z95.0 - Presence of cardiac pacemaker Category: Medical Plan: Cardiac pacemaker in-situ for sick sinus syndrome. Pacemaker is working well. Reprogrammed for adequate function. Will follow remotely every 3 months. Follow up in the clinic in 6 months time, sooner p.r.n.. Thank you for allowing me to partake in his care Coding Level of Care Code Est Pt Level 4 (31765) Complex EM visit Add On G2211 Diagnoses Ischemic cardiomyopathy I25.5 CAD (coronary artery disease) I25.10 SVT (supraventricular tachycardia) I47.1 Pacemaker Z95.0 CPT Codes Cardiac Device Check - Cardiac Device 2: [id number] Cardiac Device Check, pacemaker dual lead ([id number])
--- OUTSIDE RECORDS SUMMARY | 2024-11-12 13:01 | XMS_ITS | Data Portability ---
Author Organization [facility], [facility] Address [address] [place] [address] Care Team Providers Care Copy Worker Name Role Phone SHAY MARTIN Primary Care Provider [phone] Assessment No assessment recorded. Plan of Treatment [...] 5 bilateral hip 2v cw 2023 024 [email or web address] [facility] Office, [address], [place], [address], 07/26/2024 09:35:44 XR, knee, 4 or more view - est pt left knee 4v. Hx of LTKA by Marian [email or web address] [facility] Office, [address], [address], [place], [address], 12/23/2023 12:33:47 Medication Orders None recorded. Patient TargetsNo targets recorded. Patient Instructions Encounter Date Encounter Id Patient Instructions Last Modified By Organization Details Last Modified Time 12/23/2023 [id number] trochanteric bursitis: exercises Not available 12/23/2023 11:00:59 hip bursitis: exercises Not available 12/23/2023 11:00:59 07/03/2024 [id number] hip bursitis: exercises Not available 07/03/2024 12:41:25 [...] pelvi s, bilat eral, 2 view http:/ /[email or web address] [email or web address] ?Encry pted=s hAaTro YD8dLq bEUv6g %2BXZw aYqtaq 0bqfl% 2Fg9IQ a4ajBk vP9nXo QUaueC m3YtLR FvZlgJ JJ8mAn HZtai3 1c1394 AC0Kqa XmCVqq uKiQtr MwF INTERFACE [employer] Office [address], [place], [address], 07/03/2024 09:42:15 07/03/2007/03/2024 XR, hip + pelvi s, bilat eral, 2 view http:/ /[email or web address] [email or web address] ?Encry pted=s hAaTro YD8dLq bEUv6g %2BXZw aYqtaq 0bqfl% 2Fg9IQ a4ajBk vP9nXo QUaueC m3YtLR FvZl J8Pickford HZtai3 [id number] AC0Kqa XmCVqq uKiQtr MwF INTERFACE [employer] Office [address], [place], [address], 07/03/2024 09:42:17 Result Notes None recorded. Problems Name Problem SNOMED Code Status Onset Date Resolution Date Notes Provider Name and Address Organization Details Recorded Time Pain of left shoulder joint 420667140749 90698 Active 2023 johana rincon [place] - [facility] 09/11/202 4 12:08:26 Hip pain 29490526 Active 2023 [facility] 4 09:35:04 Shoulder pain 44577850 Active 2024 [facility] 5 10:45:30 Implantat ion of joint prosthesi s Active 2014 Status: 'A'; Not Available [facility] 4 11:27:16 Knee joint prosthesi s present 833260087109 Active 2015 Problem Code: Z96.651; Problem Code Type: ICD-10; Status: 'A'; Not Available [facility] 4 11:27:16 Idiopathi c osteoarth ritis 457415808 Active 2017 Problem Code: M17.0; Problem Code Type: ICD-10; Status: 'A'; Not Available [facility] 4 11:27:16 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 Procedures Surgical History Date Name Laterality Status Provider Name and Address Organization Details Recorded Time 5 Sports Shoulder 4&1 completed Ashlee Frost PA-C [address], [place], [address], [facility] 08/15/2024 20:35:21 4 Hip Kenalog 1cc Injection, Bilateral completed Ashlee Frost PA-C [address], [place], [address], [facility] 07/03/2024 12:56:04 4 Sports Shoulder 4&1 completed Ashlee Frost PA-C [address], [place], [address], [facility] 04/03/2024 13:25:55 4 Hip Kenalog 1cc Injection, L/R cancelled Chad Duque PA-C [address], [place], [address], [facility] 02/16/2024 09:03:17 4 Sports Shoulder 4&1 cancelled Chad Duque PA-C [address], [place], [address], [facility] 02/16/2024 09:03:22 4 Hip Kenalog 1cc Injection, L/R completed Ashlee Frost PA-C [address], [place], [address], [facility] 12/24/2023 14:18:16 4 Hip Kenalog 1cc Injection, L/R completed Chad Duque PA-C [address], [place], [address], [facility] 11/10/2023 09:22:06 4 Sports Shoulder 4&1 completed Chad Duque PA-C [address], [place], [address], [facility] 11/10/2023 09:22:19 Imaging Results Imaging Date Name Status LastModified by Organiz ation Details LastModified Time 06/02/2021 imaging/diag nostic result completed [email or web address] Information not available 04/06/2024 13:53:58 07/03/2024 XR, hip + pelvis, bilateral, 2 view completed [facility] [address], [place], [address], 07/03/2024 09:42:15 07/03/2024 XR, hip + pelvis, bilateral, 2 view completed [facility] [address], [place], [address], 07/03/2024 09:42:17 Procedure Notes None recorded. Medical Equipment None Reported. Allergies Allergen ID Allergen Name Allergen Category Reaction Reaction Severity Criticality Documentation Date Start Date Code Code System Note Provider Name and Address Organization Details Recorded Time 111026 latex environme nt,medica tion Not available Not available Not available 11/09/2023 46917 91 RxNorm RATNA rincon [place] - [facility] 13:24:57 Medications [...] Updated DateTime 11/10/2023 175.26 cm 31.7 kg/m2 29335.36 g RATNA REDE [facility] 11/10/2023 08:58:29 Date Recorded Body height Body mass index (BMI) Body weight Provider Name and Address Organization Details Last Updated DateTime 12/23/2023 175.26 cm 31.7 kg/m2 02468.36 g MADHU ALVARENGA [facility] 12/23/2023 10:16:47 Date Recorded Body height Body mass index (BMI) Body weight Provider Name and Address Organization Details Last Updated DateTime 04/03/2024 175.26 cm 31.7 kg/m2 35778.36 g johana [facility] 04/03/2024 11:08:01 Date Recorded Body height Body mass index (BMI) Body weight Provider Name and Address Organization Details Last Updated DateTime 07/03/2024 175.26 cm 31.7 kg/m2 32203.36 g [facility] 07/03/2024 09:16:24 Date Recorded Body height Body mass index (BMI) Body weight Provider Name and Address Organization Details Last Updated DateTime 08/16/2024 175.26 cm 31.7 kg/m2 81083.36 g [facility] 08/16/2024 08:48:01 Social History None recorded. Functional Status None recorded. Mental Status None recorded. Family History Nothing Reported. Medical History Condition Response Diabetes Y Cancer Y Arthritis Y Hypertension Y Past Encounters Encounter ID Performer Location Encounter Start Date Encounter Closed Date Diagnosis/Indication Diagnosis SNOMED-CT Code Diagnosis ICD10 Code Diagnosis Note [id number] KEYON Ojeda [address] [place] [address] 11/10/2023 08:45:42 11/30/2023 13:39:28 Full thickness rotator cuff tear 183435180 M75.122 You have been provided with a [...] the injection. This is called a ? f lare? . To help minimize the chances of this, please see the post-injec tion instructio ns above.Ther e is a less than 1% chance of an infection. If you notice any signs of infection (redness, warmth, drainage, fever greater than 100 degrees) please call our office or contact us through the portal BLANCHE. Trochanter ic bursitis of left hip 9494603226 79556 M70.62 [id number] KEYON Borges [address] [place] [address] 12/23/2023 09:15:50 01/13/2024 14:08:26 History of left total knee replacement 6840983457 547977 Z96.652 Trochanter ic bursitis of left hip 6286025283 00059 M70.62 [id number] KEYON Borges 2[address] [place] [address] 04/03/2024 10:37:25 04/25/2024 13:22:23 Full thickness rotator cuff tear 641726807 M75.122 Osteoarthr itis of joint of left shoulder region 7781882417 94188 M19.035 [id number] KEYON Borges [facility] [address] [place] [address] 07/03/2024 09:12:06 07/26/2024 09:35:44 Hip pain 09914946 M25.551 M25.552 Trochanter ic bursitis of left hip 6862974299 19583 M70.62 Trochanter ic bursitis of right hip 2476941482 68996 M70.61 Primary co xarthrosis, bilateral 013211879 M16.0 [id number] KEYON Borges [address] [facility] [place] [address] 08/16/2024 08:42:00 08/29/2024 09:26:55 Full thickness rotator cuff tear 089056393 M75.122 Osteoarthr itis of joint of left shoulder region 6959799043 41788 M19.012 Health Concerns Section Related Observation LastModified by Organization Detai ls LastModified Time None Recorded Concern Status LastModified by Organization Details LastModified Time None Recorded Advance Directives Directive None Recorded Payers Encounter Date Sequence Insurance Name Policy Number Policy Delgado Covered Member ID Delgado Member ID Guarantor Name 11/10/2023 1 [place] Kartik Ortiz [id number] Kartik Ortiz 11/10/2023 2 [place] [id number] Kartik Ortiz [id number] Kartik Ortiz 12/23/2023 1 [place] Kartik Ortiz [id number] Kartik Ortiz 12/23/2023 2 [place] [id number] Kartik Ortiz [id number] Kartik Ortiz 04/03/2024 1 [place] Kartik Ortiz [id number] Kartik Ortiz 04/03/2024 2 [place] [id number] Kartik Ortiz [id number] Kartik Ortiz 07/03/2024 1 [place] Kartik Ortiz [id number] Kartik Ortiz 07/03/2024 2 [place] [id number] Kartik Ortiz [id number] Kartik Ortiz 08/16/2024 1 [place] Kartik Ortiz [id number] Kartik Ortiz 08/16/2024 2 [place] [id number] Kartik Ortiz [id number] Kartik Ortiz Notes Date Note Type Note Provider Name and Address Organization Details Recorded Time 11/10/2023 text/html I am seeing the patient today under the supervision of{{ Dr. Caamra#}} who was available but who did not [...] back for such. Chad Duque PA-C [address], [place], [address], [facility] - [facility] 11/10/2023 09:23:01 12/23/2023 text/html I am seeing [...] with activity. He ended up going to [place] emergency department at the beginning of the [...] and lucid. Normal insight, affect and grooming. CALL SPECIALIST: Gross motor coordination is intact. No spasticity [...] compressible. X-rays ordered, obtained and reviewed at [facility] today include 3 views of the left knee. Images reveal total knee arthroplasty components to be in good position and without evidence of loosening. No change when compared to prior films. X-ray report brought in by the patient from [facility] on 12/07/2023 indicates that x-rays of both [...] All questions answered. Ashlee Frost PA-C [address], [place], [address], [facility] - [facility] 12/24/2023 14:23:18 04/03/2024 text/html [...] and lucid. Normal insight, affect and grooming. CALL SPECIALIST: Gross motor coordination is intact. No spasticity [...] All questions answered. Ashlee Frost PA-C [address], [place], [address], [facility] - [facility] 04/03/2024 13:26:13 07/03/2024 text/html I am seeing [...] and lucid. Normal insight, affect and grooming. CALL SPECIALIST: Gross motor coordination is intact. No spasticity [...] extremities. X-rays ordered, obtained and reviewed at [facility] today include an AP pelvis and [...] time. All questions answered. Ashlee Frost PA-C [address] [place] [address] [address], [place], [address], [facility] - [facility] 07/03/2024 12:57:40 08/16/2024 text/html I am seeing [...] and lucid. Normal insight, affect and grooming. CALL SPECIALIST: Gross motor coordination is intact. No spasticity [...] All questions answered. Ashlee Frost PA-C [address], [place], [address], [facility] - [facility] 08/16/2024 09:17:55
--- OUTSIDE RECORDS SUMMARY | 2024-11-12 13:01 | XMS_ITS ---
Author Organization Ivan Llanes III, MD Address [address] [place] [address] Care Team Providers Care Store Mgr Name Role Phone Mckinley Choi MD Primary Care Provider Unavaila Ivan Cisse Unavailable [phone] Allergies Allergen (clinical drug ingredient) Drug/Non Drug [...] Date Provider Diagnosis Ivan Llanes III, MD [address] [place] [address] [place] [address] 04/06/2024 Ivan Llanes Malignant neoplasm o f colon, unspecified part of colon C18.9 ; BPH (benign prostatic hyperplasia) N40.0 ; Osteoarthritis of multiple joints, unspecified osteoarthritis type M15.9 ; Coronary artery disease involving tribe coronary artery without angina pectoris, unspecified whether tribe or transplanted heart I25.10 and Obesity E66.9 [...] good relief. 04/06/2024 Coronary artery disease involving tribe coronary artery without angina pectoris, unspecified whether tribe or transplanted heart (ICD-10 - I25.10) Since [...] v Provider Name:Ivan Llanes, 04/04/2025 11:00:00 AM, [address] [place] [address] [address], [place], [address], Progress Notes * Kartik CARRASCODOB: 7 (79 yo M)Acc No.[id number]:04/06/2024 Progress Notes Patient:?Kartik Carrasco Provider:?Ivan Llanes MD :1945???Age:79 Y???Sex:Male Aristeo e:04/06/2024 Address: [address], [facility], [id number] Pcp:Mckinley Choi MD Subjective: * Chief Complaints: [...] at [employer]; 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 He was born [place], [place]. * Medications:?TakingNitroglyc mani 0.4 MG Tablet [...] ibuprofen with good relief.?4.?Coronary artery disease involving tribe coronary artery without angina pectoris, unspecified whether tribe or transplanted heart - I25.10, Since his [...] Provider:?Ivan Llanes MD Date:?03/10 Generated for Liam bustillo/Dajuan/eTshalinismmartin on:?11/12/2024 01:00 PM EDT History and Physical Notes * HPI (History of Present Illness) Category Sub-Category Detail Notes COVID-19 Screening Questions Have you had any new onset fever, chills, cough, congestion, sore throat, shortness of breath, muscle aches?: No Have you been exposed to the virus withi n the last 10 days?: No Have you travelled internationally in [facility] last 10 days?: No Have [...]
--- OUTSIDE RECORDS SUMMARY | 2024-11-12 13:01 | XMS_ITS | Patient Health Record ---
Author Organization Ivan Llanes III, MD Address [address] [place] [address] Care Team Providers Care Human Resource Analyst Name Role Phone Mckinley Choi MD Primary Care Provider Unavaila Ivan Cisse Unavailable [phone] Allergies Allergen (clinical drug ingredient) Drug/Non Drug [...] Problem Status W/U Status Risk Notes Problem 979398683 Obesity (E66.9) Active confirmed He has lost 3 pounds. We discussed diet and nutrition today. We reviewed his weight loss strategy. We made a plan to lose weight at a rate of one half of a pound per week. Problem 347623976 BPH (benign prostatic hyperplasia) (N40.0) Active confirmed He is taking 3 medications arises from sleep 4 times a night. He will follow up with primary care and urology. 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 He is taking ibuprofen with good relief. Problem 575588248 Erythrocytosis (D75.1) Active confirmed Numerous recent CBC determinations show his hematocrit to be normal. Problem 243277434 Coronary artery disease involving [place] coronary artery without angina pectoris, unspecified whether [place] or transplanted heart (I25.10) Active confirmed Since his [facility] visit he has had no episodes of angina with exertion or at rest. There is no need to change his regimen at this time. Problem 525588526 Malignant neoplasm of colon, unspecified part of colon (C18.9) Active confirmed There is no sign of disease recurrence or of a new primary tumor. He will continue with surveillance and periodic colonoscopies. Problem 653577073 Hyperlipidemia type II (E78.01) Active confirmed His [...] Date Provider Diagnosis Ivan Llanes III, MD [address] [place] [address] [address] [place] [address] 04/06/2024 Ivan Llanes Malignant neoplasm o f colon, unspecified part of colon C18.9 ; BPH (benign prostatic hyperplasia) N40.0 ; Osteoarthritis of multiple joints, unspecified osteoarthritis type M15.9 ; Coronary artery disease involving [place] coronary artery without angina pectoris, unspecified whether [place] or transplanted heart I25.10 and Obesity E66.9 [...] good relief. 04/06/2024 Coronary artery disease involving [place] coronary artery without angina pectoris, unspecified whether [place] or transplanted heart (ICD-10 - I25.10) Since [...] Details Provider Name:Ivan Llanes, 04/04/2025 11:00:00 AM, [address] [place] [address] [address], [place], [address], Insurance Providers Payer Name Payer Address Payer Phone Subscriber Number Group Number Insured Name Patient Relationship to Insured Coverage Start Date Coverage End Date MEDICARE NGS [address] [place] [phone] [id number] Kartik Ortiz Self - patient is the insured [facility] [address] [place], [place] [id number] [phone] [id number] Kartik Ortiz Self - patient is the insured Medical (General) History Medical History History ICD Code coronary artery disease CABG 1998 hyperlipidemia 09/2011 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
== END 2024-11-12 11:28 | disposition home or self-care (01) ==
PROVIDERS: PCP Internal Medicine; Visit Provider Internal Medicine Cardiovascular Disease
DX: I25.5 Ischemic cardiomyopathy (principal); I25.10 Atherosclerotic heart disease of native coronary artery without angina pectoris; I47.10 Supraventricular tachycardia, unspecified; Z95.0 Presence of cardiac pacemaker
CPT/HCPCS: 93280; 99214; G2211

== ENCOUNTER → 2024-11-12 10:53 | Outpatient (BNVA) | payer MEDICARE, SELFPAY ==
[2023-03-31 07:35] VITALS: BP 100/58; BP 126/68
[2023-07-20 15:41] VITALS: BP 90/50; BMI 30.9
== END ==
PROVIDERS: PCP Internal Medicine; Visit Provider Internal Medicine Cardiovascular Disease
DX: I25.5 Ischemic cardiomyopathy (principal); I25.10 Atherosclerotic heart disease of native coronary artery without angina pectoris; I47.10 Supraventricular tachycardia, unspecified; R53.83 Other fatigue; Z45.018 Encounter for adjustment and management of other part of cardiac pacemaker
CPT/HCPCS: 93280; 99212

== ENCOUNTER 2024-12-24 13:29 | Outpatient (AMB) | payer MEDICARE, SELFPAY ==
[2023-03-31 07:35] VITALS: BP 100/58; BP 126/68
[2023-07-20 15:41] VITALS: BP 90/50; BMI 30.9
--- OUTSIDE RECORDS SUMMARY | 2024-12-24 13:34 | XMS_ITS ---
Author Organization Ivan Llanes III, MD Address [address] [place] [address] Care Team Providers Care Mirror Specialist Name Role Phone Mckinley Choi MD Primary Care Provider Unavaila Ivan Cisse Unavailable [phone] Allergies Allergen (clinical drug ingredient) Drug/Non Drug [...] Date Provider Diagnosis Ivan Llanes III, MD [address] [place] [address] [place] [address] 04/06/2024 Ivan Llanes Malignant neoplasm o f colon, unspecified part of colon C18.9 ; BPH (benign prostatic hyperplasia) N40.0 ; Osteoarthritis of multiple joints, unspecified osteoarthritis type M15.9 ; Coronary artery disease involving [place] coronary artery without angina pectoris, unspecified whether [place] or transplanted heart I25.10 and Obesity E66.9 [...] good relief. 04/06/2024 Coronary artery disease involving [place] coronary artery without angina pectoris, unspecified whether [place] or transplanted heart (ICD-10 - I25.10) Since [...] v Provider Name:Ivan Llanes, 04/04/2025 11:00:00 AM, [address] [place] [address] [address], [place], [address], Progress Notes * Kartik CARRASCODOB: 7 (79 yo M)Acc No.[id number]:04/06/2024 Progress Notes Patient:?Kartik Carrasco Provider:?Ivan Llanes MD :1945???Age:79 Y???Sex:Male Aristeo e:04/06/2024 Address: [address], [facility], [id number] Pcp:Mckinley Choi MD Subjective: * Chief Complaints: [...] 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 He was born [place], [place]. * Medications:?TakingNitroglyc mani 0.4 MG Tablet [...] ibuprofen with good relief.?4.?Coronary artery disease involving [place] coronary artery without angina pectoris, unspecified whether [place] or transplanted heart - I25.10, Since his [...] Llanes MD Date:?03/10 Generated for Liam bustillo/Dajuan/eTshalinismitting on:?12/24/2024 01:34 PM EDT History and Physical Notes * HPI (History of Present Illness) Category Sub-Category Detail Notes COVID-19 Screening Questions Have you had any new onset fever, chills, cough, congestion, sore throat, shortness of breath, muscle aches?: No Have you been exposed to the virus withi n the last 10 days?: No Have you travelled internationally in [facility] last 10 days?: No Have you been [...]
--- OUTSIDE RECORDS SUMMARY | 2024-12-24 13:34 | XMS_ITS | Patient Health Record ---
Author Organization Ivan Llanes III, MD Address [address] [place] [address] Care Team Providers Care Antique Dealer Name Role Phone Mckinley Choi MD Primary Care Provider Unavaila Ivan Cisse Unavailable [phone] Allergies Allergen (clinical drug ingredient) Drug/Non Drug [...] Problem Status W/U Status Risk Notes Problem [id number] Obesity (E66.9) Active confirmed He has lost 3 pounds. We discussed diet and nutrition today. We reviewed his weight loss strategy. We made a plan to lose weight at a rate of one half of a pound per week. Problem [id number] BPH (benign prostatic hyperplasia) (N40.0) Active confirmed He is taking 3 medications arises from sleep 4 times a night. He will follow up with primary care and urology. 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 He is taking ibuprofen with good relief. Problem [id number] Erythrocytosis (D75.1) Active confirmed Numerous recent CBC determinations show his hematocrit to be normal. Problem 087789009 Coronary artery disease involving [place] coronary artery without angina pectoris, unspecified whether [place] or transplanted heart (I25.10) Active confirmed Since his the orthopedic specialty hospital visit he has had no episodes of angina with exertion or at rest. There is no need to change his regimen at this time. Problem [id number] Malignant neoplasm of colon, unspecified part of colon (C18.9) Active confirmed There is no sign of disease recurrence or of a new primary tumor. He will continue with surveillance and periodic colonoscopies. Problem [id number] Hyperlipidemia type II (E78.01) Active confirmed His [...] Date Provider Diagnosis Ivan Llanes III, MD [address] [place] [address] DR [place]HER, [place] [id number] 04/06/2024 Ivan Llanes Malignant neoplasm o f colon, unspecified part of colon C18.9 ; BPH (benign prostatic hyperplasia) N40.0 ; Osteoarthritis of multiple joints, unspecified osteoarthritis type M15.9 ; Coronary artery disease involving [place] coronary artery without angina pectoris, unspecified whether [place] or transplanted heart I25.10 and Obesity E66.9 [...] good relief. 04/06/2024 Coronary artery disease involving [place] coronary artery without angina pectoris, unspecified whether [place] or transplanted heart (ICD-10 - I25.10) Since [...] Date PROFILE, FASTING (COMPREHENSIVE METABOLI C) 04/07/2023 PROFILE, FASTING (COMPREHENSIVE METABOLI C) 09/12/2020 PROFILE, FASTING (COMPREHENSIVE METABOLI C) 09/13/2019 PROFILE, RANDOM (COMPREHENSIVE METABOLIC ) 07/11/2018 PROFILE, RANDOM (COMPREHENSIVE METABOLIC ) 01/09/2018 HEMOGLOBIN A1C (GLYCOHEMOGLOBIN) 021 LIPID PANEL 04/07/2023 LIPID PANEL 09/12/2020 LIPID PANEL 09/13/2019 PSA, TOTAL 09/13/2019 PSA, TOTAL 04/07/2023 CEA 07/11/2018 CEA 01/09/2018 CBC w DIFF 09/12/2020 CBC w DIFF 09/13/2019 CBC w DIFF 07/11/2018 CBC w DIFF 04/07/2023 CBC w DIFF 12/19/2017 CBC w DIFF 01/09/2018 RETICULOCYTE COUNT,CORRECTED 12/19/2017 ERYTHROPOIETIN 12/19/2017 JAK2 MUTATION PCR 12/19/2017 Next Appt Details Provider Name:Ivan Llanes, 04/04/2025 11:00:00 AM, [address] [place] [address] [address]RAUSTO, [place], [address], Insurance Providers Payer Name Payer Address Payer Phone Subscriber Number Group Number Insured Name Patient Relationship to Insured Coverage Start Date Coverage End Date MEDICARE NGS [address] [place] [phone] [id number] Kartik Ortiz Self - patient is the insured [facility] [address] [place], [place] [id number] Kartik Ortiz Self - patient is the insured Medical (General) History Medical History History ICD Code coronary artery disease CABG 1998 hyperlipidemia 09/2011 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
[2024-12-24 13:37] VITALS: BP 118/78; PULSE 71; O2SAT 98; BMI 30.1
--- NOTE | 2024-12-24 13:37 | MHC.PC.OV ---
Vital Signs 12/24/24 13:37 Height 5 ft 9 in Weight 204 lb BMI 30.1 BP 118/78 Blood Pressure Location Lt brachial Position Sitting Pulse 71 Pulse Source Pulse Oximeter Pulse Oximetry (%) 98 Oxygen Delivery Method Room Air Intake Visit Reasons: 4 month follow up transfer from [facility] BERNABE Inhibitors [BERNABE INHIBITORS] Allergy (Intermediate, Verified 10/22/24 09:24) DEPRESSION latex [LATEX] Allergy (Intermediate, Verified 10/22/24 09:24) RASH terazosin Allergy (Intermediate, Verified 10/22/24 09:24) hives, swollen lips and hoarseness pravastatin [Pravachol] Allergy (Unknown, Verified 10/22/24 09:24) unknown bee pollen [bee stings] Adverse Reaction (Severe, Verified 10/22/24 09:24) Anaphylaxis Beta-Blockers (Beta-Adrenergic Bloc [BETA-BLOCKERS (BETA-ADRENERGIC BLOC] Adverse Reaction (Intermediate, Verified 10/22/24 09:24) DECREASED HR, DEPRESSION amoxicillin Allergy (Intermediate, Uncoded 09/07/24 10:07) hives, swollen lips, and hoarseness cephlex: levofloxacin Allergy (Intermediate, Uncoded 09/07/24 10:07) hives, swollen lips, and hoarseness clindomycin Allergy (Intermediate, Uncoded 09/07/24 10:07) hives, swollen lips, and hoarseness Medication List - Last Reconciled 12/24/24 by Christie Floyd MD albuterol sulfate 90 mcg/actuation 2 puffs inhalation Q4-6H PRN aspirin (Adult Low Dose Aspirin) 81 mg PO DAILY bisoprolol fumarate 2.5 mg (1/2 x 5 mg) PO DAILY blood sugar diagnostic (From The [employer] Verio test strips) 1 Strip Once a Day blood-glucose meter (From The BenchTouch Verio Meter) to check blood sugars once a day diphenhydramine HCl (Benadryl Allergy) 25 mg PO TID PRN ezetimibe (Zetia) 10 mg PO DAILY finasteride 5 mg PO DAILY fluticasone propionate 50 mcg/actuation (Flonase Allergy Relief) 1 spray intranasal DAILY lancets ([employer]: [employer] Delica Lancets) to check blood sugars once a day metformin 500 mg PO BID mupirocin 2% 1 appl topical TID nitroglycerin 0.4 mg sublingual Q5M PRN rosuvastatin 40 mg PO DAILY Tobacco use date assessed: 08/30/24 Fall risk assessment: No Falls in past year Last assessed Fall Risk: 12/24/24 Dental Screening Dental Screen Date: 08/30/24 [facility] Medical History (Updated 12/24/24 @ 14:35 by Christie Floyd MD) Acute bacterial sinusitis Impetigo Multiple pulmonary nodules Decreased diffusion capacity Dyspnea Diabetes mellitus with coincident hypertension Bruised ribs Cellulitis of nose Right leg pain SOB (shortness of breath) on exertion Cough Hyperlipidemia associated with type 2 diabetes mellitus Diabetes mellitus Ischemic cardiomyopathy Pacemaker (~2021) Bradycardia (~2021) History of COVID-19 BPH (benign prostatic hyperplasia) Hypertension Obesity Tubular adenoma of colon COVID-19 vaccine administered History of colon cancer (~2010) PVC (premature ventricular contraction) SVT (supraventricular tachycardia) CAD (coronary artery disease) Surgical History (Updated 12/24/24 @ 14:14 by Christie Floyd MD) S/P cardiac cath History of pacemaker (~2021) History of coronary artery bypass graft x 3 (~1998) History of hernia repair (~2012) History of colonoscopy History of left knee surgery (~2003) History of right knee surgery History of colostomy (~2010) History of partial colectomy (~2011) History of tonsillectomy History of repair of rotator cuff History of cataract surgery (~2013) History of cardiac cath History of colostomy reversal (~2011) Family History Father Cancer, colon Mother Cancer of breast Cancer of lung Sister Cancer Social History (Updated 12/24/24 @ 14:25 by Christie Floyd MD) Household Members: Spouse Housing: House Are you a primary manager progressive care to a significant other at home: No Do you presently have visiting nurse or other home services: No Alcohol intake: current Alcohol intake frequency: 0-2 drinks per day Comment: 4x a week 2 drinks Patient Tobacco Use Status: Never used Tobacco Tobacco use type: Cigarette e-Cigarette/Vaping Use: Never Used Second Hand Smoke Exposure: No service: No Current occupational status: retired Cognitive needs: No Hearing needs: No Vision needs: Yes (glasses) Questionnaire PHQ-9 Over the last 2 weeks, how often have you been bothered by any of the following problems? 1. Little interest or pleasure in doing things: not at all 2. Feeling down, depressed, or hopeless: not at all 3. Trouble falling or staying asleep, or sleeping too much: not at all 4. Feeling tired or having little energy: several days 5. Poor appetite or overeating: not at all 6. Feeling bad about yourself - or that you are a failure or have let yourself or your family down: not at all 7. Trouble concentrating on things, such as reading the newspaper or watching television: not at all 8. Moving or speaking so slowly that other people could have noticed. Or the opposite - being so fidgety or restless that you have been moving around a lot more than usual: not at all 9. Thoughts that you would be better off or of hurting yourself in some way: not at all Total score: 1 Source: Developed by Drs. Ivan Humphrey, Rachel Sigala, Bradley Rojas and colleagues, with an educational henry from [employer]. Thrive Questionnaire Date Thrive assessed: 12/18/24 I am a: Patient What is your living situation today?: I have a steady place to live Within the past 12 months, did the food you bought not last and you didn't have the money to get more?: Never true Within the past 12 months, did you worry whether your food would run out before you got money to buy more?: Never true Do you have trouble paying for medicines?: No Do you have trouble getting transportation to medical appointments?: No Do you have trouble paying your heating and electricity bill?: I choose not to answer this question Do you have trouble taking care of your child, family member or friend?: I choose not to answer this question Do you have trouble with day-to-day activities such as bathing, preparing meals, shopping, managing finances, etc.?: I choose not to answer this question Are you currently unemployed and looking for a job?: No Are you interested in more education?: No Please select the resources that you would like help with: None Currently or been in a relationship where the following occur: No concerns reported THRIVE Score: 0 AUDIT C Alcohol Use Questionnaire (AUDIT-C) 1. How often do you have a drink containing alcohol?: 2-3 times a week Total Score: 3 JOE-7 AMB Questionnaire JOE-7 Date JOE - 7 assessed: 08/30/24 Feeling nervous, anxious, or on edge: 0 = Not at all Not being able to stop or control worryin = Not at all Worrying too much about different things: 1 = Several days Trouble relaxin = Not at all Being so restless that it is hard to sit still: 0 = Not at all Becoming easily annoyed or irritable: 0 = Not at all Feeling afraid as if something awful might happen: 1 = Several days Total JOE-7 score (0-4 normal; 5-9 mild; 10-14 moderate; 15-21 severe): 2 Source: Developed by Drs. Ivan Humphrey, Rachel Sigala, Bradley Rojas and colleagues, with an educational henry from [employer]. Physical exam (Primary Care) Vital Signs: Last Vital Signs Pulse 71 12/24/24 13:37 BP 118/78 12/24/24 13:37 Pulse Ox 98 12/24/24 13:37 Oxygen Delivery Method Room Air 12/24/24 13:37 BMI result Body Mass Index 30.1 Tobacco/Smoking Status: Tobacco use Status Tobacco use date assessed 08/30/24 12/24/24 13:39 Patient Tobacco Use Status Never used Tobacco 12/24/24 14:25 Tobacco use type Cigarette 12/24/24 14:25 e-Cigarette/Vaping Use Never Used 12/24/24 14:25 PHQ-9: PHQ-9 Score PHQ-9: Total score 1 12/24/24 14:25 Thrive Assessment: Date of Thrive Assessment Date Thrive assessed 12/18/24 12/24/24 13:39 Currently or been in a relationship where the following occur: No concerns reported Const General: alert; No acute distress Eyes Conjunctivae: conjunctivae normal Resp Auscultation: clear to auscultation bilaterally Cardio Rate: regular rate Rhythm: regular rhythm GI Inspection: Yes normal to inspection Extrem General: Yes normal to inspection and No edema Results AMB Hemoglobin A1c AMB Hemoglobin A1c 7.1 % Last Edit by Nataliya Guerrero CMA on 12/24/24 14:01 Results Reviewed Results Reviewed: Laboratory Last Values Hgb A1c (Clinic) 7.1 % (4.0-6.0) H 12/24/24 13:39 Coding Level of Care Code Est Pt Level 4 (82921) Complex EM visit Add On G2211 Diagnoses Type 2 diabetes mellitus with hyperglycemia E11.65 Obesity E66.9 History of colon cancer Z85.038 CAD (coronary artery disease) I25.10 Hypercholesterolemia E78.00 Pacemaker Z95.0 Ischemic cardiomyopathy I25.5 Hypertension I10 Assessment & Plan Assessment & Plan (1) Type 2 diabetes mellitus with hyperglycemia: Comment: Dr. Johnston Code(s): E11.65 - Type 2 diabetes mellitus with hyperglycemia Category: Medical Plan: Decrease the amount of carbohydrate intake, pasta, bread, rice and potatoes are all sugar and that is aside from all the sweet stuff, remember that fruits are good but they are Sweet also. Hemoglobin A1c goal of less than 7.0. Patient on metformin 500 mg twice a day (2) Obesity: Code(s): E66.9 - Obesity, unspecified Category: Medical Plan: Diet and exercise (3) History of colon cancer: Onset Date: ~2010 Comment: (dx Adenocarcioma 07/2011 - s/p colectomy 09/2011) Code(s): Z85.038 - Personal history of other malignant neoplasm of large intestine Category: Medical Plan: Last colon test was 2020 (4) CAD (coronary artery disease): Comment: (Hx CABG x 3 - FIELDS to LAD, radial graft to Ramus, free GOYO to RCA - 1998) Code(s): I25.10 - Atherosclerotic heart disease of [place] coronary artery without angina pectoris Category: Medical Plan: Control the cholesterol, weight, blood pressure, diabetes continue with aspirin 81 mg once a day (5) Hypercholesterolemia: Code(s): E78.00 - Pure hypercholesterolemia, unspecified Category: Medical Plan: Avoid fried foods, chicken skin, eggs, butter margarine, pastries and meat. Be it pork or beef they have a lot of cholesterol LDL goal of less than 55 and triglyceride of less than 150 patient on Zetia and rosuvastatin (6) Pacemaker: Onset Date: ~2021 Comment: ([facility] - placed 06/18/22) Code(s): Z95.0 - Presence of cardiac pacemaker Category: Medical Plan: Continue to follow up with Cardiology (7) Ischemic cardiomyopathy: Code(s): I25.5 - Ischemic cardiomyopathy Category: Medical Plan: Continue with ranolazine, bisoprolol. (8) Hypertension: Code(s): I10 - Essential (primary) hypertension Category: Medical Plan: Continue with blood pressure medication. Decrease salt intake and exercise bisoprolol 2.5 mg once a day with ranolazine Plan History of Present Illness The patient is a 79-year-old male presenting with concerns regarding his multiple chronic medical conditions, recent rib injury, and follow-up management. He has a notable medical history including obesity, colon cancer with a colectomy in 2011, and a tubular adenoma with up-to-date colonoscopy, last performed in October 2020. His cardiovascular history is significant for diabetes mellitus, hypercholesterolemia, hypertension, coronary artery disease requiring a pacemaker for chronotropic incompetence, and ischemic cardiomyopathy with reported moderate left ventricular diastolic dysfunction. Echocardiography performed on October 12, 2024, showed a left ventricular ejection fraction of 35-40% with mild dilation of the ascending aorta. Pulmonary history includes multiple pulmonary nodules and mild bronchiectasis observed on a CT scan in June 2024. The patient denies a formal diagnosis of COPD or asthma but reports usage of an albuterol inhaler as needed for shortness of breath, originally prescribed due to cardiac-related respiratory issues. The patient reports a chronic rotator cuff tear in the left shoulder, managed conservatively and exacerbated by occasional physical activities. Additionally, he experienced a rib contusion from a fall two weeks ago, sustained after missing a step coming out of a restaurant, leading to persistent pain, especially when lying on the affected side. Health Maintenance - Annual colonoscopy screening up-to-date, last done in October 2020. - Echocardiogram in October 2024 showed moderate left ventricular dysfunction. - Last cholesterol test in May 2024 indicated LDL of 51, meeting goals. - Routine monitoring of hemoglobin A1c, last measured at 7.1% in July 2024. - Regular exercise reported, four times a week, with gardening on non-exercise days. - Vaccinations: Completed shingles series; Pneumonia vaccination confirmed; Tetanus not up-to-date. - Alcohol consumption: 3-4 times a week, mainly beer. - Smoking is denied. Social History - Exercises four times a week with cardiovascular exercises up to 60 minutes per session. - Engages in gardening work on non-exercise days. - Alcohol consumption: 3-4 times per week, mainly beer. - Diet includes chicken and potatoes regularly, with an emphasis on a balanced intake. - No use of recreational drugs. - Denies cigarette smoking history. Review of Systems - Cardiovascular: Reports fatigue and shortness of breath. - Respiratory: Reports shortness of breath; denies cough. - Musculoskeletal: Reports rib pain due to recent fall. - Neurologic: Denies dizziness or coordination problems. - Other systems: Denies fever, chills, or night sweats. - Gastroenterology: Denies abdominal pain or changes in bowel habits. - Endocrinology: Reports a hemoglobin A1c of 7.1%. Physical Exam General: Cooperative, healthy appearing, comfortable, no acute distress and well developed Orientation: Patient oriented x3 Limitations: No limitations Head: Normal to inspection Ears: Hearing grossly normal bilaterally Nose: Normal external nose present Face and sinus: Normal facial exam Eyes: Appearance normal, both eyes and all related structures Neck: Normal visual inspection and Yes full ROM Respiratory: Crackles heard in the bases, indicating possible fluid retention related to weak heart Cardiovascular: Regular rate and rhythm. Normal S1 and S2 GI: Normal to inspection. Soft to palpation and nontender Skin: No rashes or lesions noted Neuro: Patient oriented x3 Extremities: Normal to inspection Results - Labs: Normal blood counts and electrolytes; last hemoglobin A1c 7.1% in July 2024. - Tests: Most recent LDL cholesterol level at 51 in May 2024. - Imaging: Echocardiogram (October 2024) showed ejection fraction of 35-40% with mild aortic dilation; CT scan (June 2024) indicated mild bronchiectasis. Plan 1. The current LDL cholesterol goal remains under 55 mg/dL. Pain management for rib contusions should include acetaminophen and deep breathing to preclude pulmonary complications. Detailed monitoring of clinical status in coordination with cardiology and upcoming pulmonology appointment, along with vaccination review and routine lab follow-up, will support comprehensive care strategies going forward.: Patient was informed and verbally consented to the use of an ambient scribe for clinic note documentation during this visit. Discussion Notes After thoroughly reviewing the patient's extensive medical history and current condition, I have emphasized the importance of medication adherence and routine monitoring for his chronic medical issues, specifically ischemic cardiomyopathy and diabetes. I explained that continued cardiology surveillance is vital, considering his recent echocardiogram findings of reduced ejection fraction. Concerning his lipid levels, we aim to maintain LDL cholesterol at <55 mg/dL. We discussed the use of acetaminophen for rib pain and the significance of regular breathing exercises to alleviate associated symptoms and prevent pneumonia. I have advised routine follow-up appointments and lab tests for a comprehensive approach to his conditions and reiterated lifestyle changes including constancy in his exercise regimen. We touched on immunization completeness and agreed to revisit tetanus vaccination during future consultations, as he is actively involved in outdoor gardening. Patient Instructions - Take your medications as directed, including bisoprolol and metformin. - Continue with your current diet and exercise routine aiming for a balanced intake and regular activity. - Perform deep breathing exercises every 1-2 hours to prevent lung complications due to rib pain. - Use acetaminophen as needed for pain management. - Schedule and attend your upcoming appointment with the automotive collision estimator in February. - Follow up with routine lab work for cholesterol and A1c monitoring as recommended. - Maintain regular cardiology follow-up to manage your heart condition. - Consider getting a tetanus shot if you engage in yard work or other activities that pose a risk for cuts or injuries. - Report any significant changes in symptoms or new concerns promptly. Orders: Orders AMB Hemoglobin A1c Today Z13.9 - Encounter for screening, unspecified Comprehensive Met. Panel Today E11.65 - Type 2 diabetes mellitus with hyperglycemia Microalbumin, Random (w Creat) Today E11.65 - Type 2 diabetes mellitus with hyperglycemia Free T4 (Free Thyroxine) Today E11.65 - Type 2 diabetes mellitus with hyperglycemia Vitamin B12 and Folate Today E11.65 - Type 2 diabetes mellitus with hyperglycemia Complete Blood Count Auto Diff Today E11.65 - Type 2 diabetes mellitus with hyperglycemia Creatinine Urine Today E11.65 - Type 2 diabetes mellitus with hyperglycemia Thyroid Stimulating Hormone Today E11.65 - Type 2 diabetes mellitus with hyperglycemia Lipid Panel Today E11.65 - Type 2 diabetes mellitus with hyperglycemia, E78.00 - Pure hypercholesterolemia, unspecified Hemoglobin A1c Today E11.65 - Type 2 diabetes mellitus with hyperglycemia
== END 2024-12-24 14:46 | disposition home or self-care (01) ==
LOC: HO.HMCH 13:30
PROVIDERS: PCP Internal Medicine; Visit Provider Internal Medicine
DX: E11.65 Type 2 diabetes mellitus with hyperglycemia (principal); E66.9 Obesity, unspecified; Z68.30 Body mass index [BMI] 30.0-30.9, adult; Z85.038 Personal history of other malignant neoplasm of large intestine; I25.10 Atherosclerotic heart disease of native coronary artery without angina pectoris; E78.00 Pure hypercholesterolemia, unspecified; Z95.0 Presence of cardiac pacemaker; I25.5 Ischemic cardiomyopathy; I10 Essential (primary) hypertension

== ENCOUNTER → 2024-12-24 13:29 | Outpatient (BNVA) | payer MEDICARE, SELFPAY ==
[2023-03-31 07:35] VITALS: BP 100/58; BP 126/68
[2023-07-20 15:41] VITALS: BP 90/50; BMI 30.9
== END ==
PROVIDERS: PCP Internal Medicine; Visit Provider Internal Medicine
DX: E11.65 Type 2 diabetes mellitus with hyperglycemia (principal); I25.10 Atherosclerotic heart disease of native coronary artery without angina pectoris; E78.00 Pure hypercholesterolemia, unspecified; I25.5 Ischemic cardiomyopathy; I10 Essential (primary) hypertension; E66.9 Obesity, unspecified; Z68.30 Body mass index [BMI] 30.0-30.9, adult; Z85.038 Personal history of other malignant neoplasm of large intestine; Z95.0 Presence of cardiac pacemaker; Z71.3 Dietary counseling and surveillance
CPT/HCPCS: 83036; 99212

== ENCOUNTER 2025-02-19 09:02 | Outpatient (AMB) | payer MEDICARE, SELFPAY ==
[2023-03-31 07:35] VITALS: BP 100/58; BP 126/68
[2023-07-20 15:41] VITALS: BP 90/50; BMI 30.9
--- NOTE | 2025-02-19 08:35 | MHC.OFFVIS ---
Vital Signs 02/19/25 09:11 Height 5 ft 9 in Weight 198 lb BMI 29.2 BP 110/68 Blood Pressure Location Lt brachial Position Sitting Pulse 56 Pulse Source Pulse Oximeter Pulse Oximetry (%) 97 Oxygen Delivery Method Room Air Intake Visit Reasons: Shortness of breath Allergies BERNABE Inhibitors (BERNABE INHIBITORS) Allergy (Intermediate, Verified 02/19/25 09:14) DEPRESSION latex (LATEX) Allergy (Intermediate, Verified 02/19/25 09:14) RASH terazosin Allergy (Intermediate, Verified 02/19/25 09:14) hives, swollen lips and hoarseness pravastatin (Pravachol) Allergy (Unknown, Verified 02/19/25 09:14) unknown bee pollen (bee stings) Adverse Reaction (Severe, Verified 02/19/25 09:14) Anaphylaxis Beta-Blockers (Beta-Adrenergic Bloc (BETA-BLOCKERS (BETA-ADRENERGIC BLOC) Adverse Reaction (Intermediate, Verified 02/19/25 09:14) DECREASED HR, DEPRESSION amoxicillin Allergy (Intermediate, Uncoded 02/19/25 09:14) hives, swollen lips, and hoarseness cephlex: levofloxacin Allergy (Intermediate, Uncoded 02/19/25 09:14) hives, swollen lips, and hoarseness clindomycin Allergy (Intermediate, Uncoded 02/19/25 09:14) hives, swollen lips, and hoarseness HPI HPI Shortness of breath: Details: Kartik is a pleasant 80 year old male, never smoker, with underlying h/o adenocarcinoma of colon 2010, hypertension, hyperlipidemia, diabetes, severe CAD, coronary artery bypass grafting 1998, ischemic cardiomyopathy, pacemaker for SSS, and supraventricular tachycardia. Prior cardiac evaluation revealed prior LVEF 35-40%, mild aortic regurgitation, RVSP 34 . Cardiac cath on 02/02/24 revealed PA mean 21 and wedge pressure 12 mmHg, not suggestive of pulmonary hypertension. Prior PFT revealed normal spirometry and mildly decreased DLCO however no post albuterol testing was performed. He has used albuterol on two occasions for ongoing dyspnea however does not report any relief. Denies cough, wheezing or chest tightness. He recently came off on Ranexa and reports 30-40% improvement in overall fatigue and exercise intolerance. He has upcoming appt scheduled with cardiology next month. [facility] Medical History (Updated 12/24/24 @ 14:35 by Christie Floyd MD) Acute bacterial sinusitis Impetigo Multiple pulmonary nodules Decreased diffusion capacity Dyspnea Diabetes mellitus with coincident hypertension Bruised ribs Cellulitis of nose Right leg pain SOB (shortness of breath) on exertion Cough Hyperlipidemia associated with type 2 diabetes mellitus Diabetes mellitus Ischemic cardiomyopathy Pacemaker (~2021) Bradycardia (~2021) History of COVID-19 BPH (benign prostatic hyperplasia) Hypertension Obesity Tubular adenoma of colon COVID-19 vaccine administered History of colon cancer (~2010) PVC (premature ventricular contraction) SVT (supraventricular tachycardia) CAD (coronary artery disease) Surgical History (Updated 12/24/24 @ 14:14 by Christie Floyd MD) S/P cardiac cath History of pacemaker (~2021) History of coronary artery bypass graft x 3 (~1998) History of hernia repair (~2012) History of colonoscopy History of left knee surgery (~2003) History of right knee surgery History of colostomy (~2010) History of partial colectomy (~2011) History of tonsillectomy History of repair of rotator cuff History of cataract surgery (~2013) History of cardiac cath History of colostomy reversal (~2011) Family History Father Cancer, colon Mother Cancer of breast Cancer of lung Sister Cancer Social History Household Members: Spouse Housing: House Are you a primary managed care director to a significant other at home: No Do you presently have visiting nurse or other home services: No Alcohol intake: current Alcohol intake frequency: 0-2 drinks per day Comment: 4x a week 2 drinks Patient Tobacco Use Status: Never used Tobacco Tobacco use type: Cigarette e-Cigarette/Vaping Use: Never Used Second Hand Smoke Exposure: No service: No Current occupational status: retired Cognitive needs: No Hearing needs: No Vision needs: Yes (glasses) Review of Systems Const Denies chills, Denies excessive sweating, Denies fever(s), Denies headache(s) and Denies night sweats Eyes Denies dry eyes, Denies irritation and Denies itchy eyes ENT Reports Normal hearing present, Denies headache(s), Denies nasal congestion, Denies nasal discharge, Denies post nasal drip and Denies sore throat Card Denies chest pain, Denies chest pain at rest, Denies chest pain with activity, Denies claudication, Denies leg edema, Denies orthopnea and Denies paroxysmal nocturnal dyspnea Resp Denies chest congestion, Denies cough, Denies excessive phlegm production, Denies pain on inspiration, Denies pain with cough, Denies stridor and Denies wheezing Musc Denies myalgias Neuro Reports Normal hearing present and Denies headache(s) Endo Denies excessive sweating Cornel/Lymph Denies lymphadenopathy Aller/Immun Denies itchy eyes, Denies seasonal rhinorrhea and Denies wheezing Physical Exam Vital Signs: Last Vital Signs Pulse 56 02/19/25 09:11 BP 110/68 02/19/25 09:11 Pulse Ox 97 02/19/25 09:11 Oxygen Delivery Method Room Air 02/19/25 09:11 BMI result Body Mass Index 29.2 Const General: cooperative, healthy appearing, comfortable, no acute distress, well developed and alert Orientation/consciousness: patient oriented x3 Limitations: no limitations HEENT Head: Yes normal to inspection, Yes normocephalic and Yes atraumatic Ears: hearing grossly normal bilaterally and external ears normal Eyes General: appearance normal, both eyes and all related structures Eyelids: Yes eyelids normal Sclerae: sclerae normal EOM: EOMs intact bilaterally Neck Neck: Yes normal visual inspection and Yes no lymphadenopathy Lymphatic: no lymphadenopathy noted Chest Chest palpation & inspection: normal inspection of the chest Resp Effort & Inspection: normal respiratory effort, able to speak in complete sentences, no audible wheezes, no cough, no stridor, not tachypneic, no tripod positioning and no use of accessory muscles Auscultation: clear to auscultation bilaterally Cardio Jugular venous distension: no JVD Rate: regular rate Rhythm: regular rhythm Skin Other: warm, dry General skin exam: no rashes or lesions noted Neuro General: patient oriented x3 Cranial nerves: Yes Normal hearing present Cognition (Neuro): normal cognition Gait exam (Neuro): Normal gait present Extrem General: Yes normal to inspection, Yes capillary refill normal, Yes no clubbing, cyanosis or edema and Yes no pedal edema Psych Appearance: grossly normal and well kempt Speech and movement: Normal speech and movement present and Clear speech present Affect: normal affect Attitude: cooperative Thought process: Normal thought process present Thought content: Normal thought content present Insight: Good insight present (Psych) Judgement: Good judgement present (Psych) Assessment & Plan Assessment & Plan (1) Dyspnea: Code(s): R06.00 - Dyspnea, unspecified Category: Medical (2) Decreased diffusion capacity: Code(s): R94.2 - Abnormal results of pulmonary function studies Category: Medical Plan Encouraged patient to use albuterol MDI prior to engaging in activity to see if this alleviates any dyspnea, however patient has noted change in exercise intolerance since d/c cardiac medication and will follow up with cardiology to further discuss next month. Will send for updated PFT to assess bronchodilator response. Discussed empiric treatment with ICS/LABA however patient would like to hold off. All questions were answered and patient is in agreement of plan. Will follow up to review results or sooner if needed. Coding Level of Care Code Est Pt Level 3 (58949) Diagnoses Dyspnea R06.00 Decreased diffusion capacity R94.2
[2025-02-19 09:11] VITALS: BP 110/68; PULSE 56; O2SAT 97; BMI 29.2
--- OUTSIDE RECORDS SUMMARY | 2025-02-19 09:20 | XMS_ITS | Patient Health Record ---
Author Organization [facility] Address [address] [place] [address] Care Team Providers Care Life Sciences Manager Name Role Phone Steph MARK, Mckinley Primary Care Provider Ivan Powell Unavailable [phone] Allergies Allergen (clinical drug ingredient) Drug/Non Drug Allergy documented on EMR Reaction Allergy Type Onset Date Status Substance with beta adrenergic receptor antagonist mechanism of action (substance) Beta Blockers (uncoded) Unknown Allergy Active Reason For Referral No Information Medications Medication SIG (Take, Route, Fr equency, Duration) Notes Start Date End Date Status Dicyclomine HCl 20mg Active CoQ-10 200mg Active Aspir-81 81mg Active Zetia 10mg Active Lipitor 20mg Active Flagyl 500 MG 1 tablet Orally BID for 05 days 07/22/2011 08/08/2024 Active MoviPrep 100 GM as directed Orally 07/22/201108/2024 Active Problems Problem Type SNOMED Code ICD Code Onset Dates Problem Status W/U Status Risk Notes Problem Digestive system symptom (119703636) Other symptoms involving digestive system (787.99) Active confirmed Problem Right lower quadrant pain (547411551) Abdominal pain, right lower quadrant (789.03) Active confirmed Problem Left lower quadrant pain (955137892) Abdominal pain, left lower quadrant (789.04) Active confirmed Problem Epigastric pain (04552951) Abdominal pain, epigastric (789.06) Active confirmed Problem Abnormal findings diagnostic imaging of liver and biliary tract (176295805) Nonspecific abnormal findings on radiological and other examination of biliary tract (793.3) Active confirmed Problem Family history of malignant neoplasm of gastrointestinal tract (315470085) Family history of malignant neoplasm of gastrointestinal tract (V16.0) Active confirmed Plan Of Treatment Pending Test Test Name Order Date ENDOMYSIAL IGA 07/22/2011 TRANSGLUTAMINASE AB IGA 07/22/2011 TRANSGLUTAMINASE AB IGG 07/22/2011 Future Test Test Name Order Date COLONOSCOPY 07/22/2011 Insurance Providers Payer Name Payer Address Payer Phone Subscriber Number Group Number Insured Name Patient Relationship to Insured Coverage Start Date Coverage End Date [facility] CLAIM[facility] [address] [place] [address] [id number] ROXY CARRASCO Self - patient is the insured Medical (General) History Medical History History ICD Code hyperlipidemia bronchitis coronary artery disease, sta tus post bypass in 1998-he denies any subsequent cardiac problems he denies any history of diabetes, strok e nor kidney disease Surgical History Surgery Date(Month/Year) coronary artery bypass as above bilateral knee replacements in 2003 and 2005 rotator cuff surgery and biceps tendon r epair in 2007
--- OUTSIDE RECORDS SUMMARY | 2025-02-19 09:20 | XMS_ITS | Patient Health Record ---
Author Organization Ivan Llanes III, MD Address [address] [address] Care Team Providers Care Lean Manufacturing Coordinator Name Role Phone Mckinley Choi MD Primary Care Provider Unavaila Ivan Cisse Unavailable [phone] Allergies Allergen (clinical drug ingredient) Drug/Non Drug [...] Problem Status W/U Status Risk Notes Problem 808011610 Obesity (E66.9) Active confirmed He has lost 3 pounds. We discussed diet and nutrition today. We reviewed his weight loss strategy. We made a plan to lose weight at a rate of one half of a pound per week. Problem 767911280 BPH (benign prostatic hyperplasia) (N40.0) Active confirmed He is taking 3 medications arises from sleep 4 times a night. He will follow up with primary care and urology. Problem 927759201 Osteoarthritis of multiple joints, unspecified osteoarthritis type (M15.9) Active confirmed He has mild symptoms arthritis in his knees. He is taking ibuprofen with good relief. Problem 937269074 Erythrocytosis (D75.1) Active confirmed Numerous recent CBC determinations show his hematocrit to be normal. Problem 443399558 Coronary artery disease involving kaw coronary artery without angina pectoris, unspecified whether kaw or transplanted heart (I25.10) Active confirmed Since his [facility] visit he has had no episodes of angina with exertion or at rest. There is no need to change his regimen at this time. Problem 987910900 Malignant neoplasm of colon, unspecified part of colon (C18.9) Active confirmed There is no sign of disease recurrence or of a new primary tumor. He will continue with surveillance and periodic colonoscopies. Problem 397273160 Hyperlipidemia type II (E78.01) Active confirmed His [...] Date Provider Diagnosis Ivan Llanes III, MD [address] [place] [address] DR MAHER, SEGUNDO [address] 04/06/2024 Ivan Llanes Malignant neoplasm o f colon, unspecified part of colon C18.9 ; BPH (benign prostatic hyperplasia) N40.0 ; Osteoarthritis of multiple joints, unspecified osteoarthritis type M15.9 ; Coronary artery disease involving kaw coronary artery without angina pectoris, unspecified whether kaw or transplanted heart I25.10 and Obesity E66.9 [...] good relief. 04/06/2024 Coronary artery disease involving kaw coronary artery without angina pectoris, unspecified whether kaw or transplanted heart (ICD-10 - I25.10) Since [...] C) 09/12/2020 PROFILE, RANDOM (COMPREHENSIVE METABOLIC ) 01/09/2018 PROFILE, [...] Details Provider Name:Ivan Llanes, 04/04/2025 11:00:00 AM, [address] [place] [address] KRISTEN FRAUSTO, [place], [address], Insurance Providers Payer Name Payer Address Payer Phone Subscriber Number Group Number Insured Name Patient Relationship to Insured Coverage Start Date Coverage End Date MEDICARE NGS [address] [place] [id number] Kartik Ortiz Self - patient is the insured [facility] [address] [place], [place] [id number] Kartik Ortiz Self - patient is the insured Medical (General) History Medical History History ICD Code coronary artery disease CABG 1998 hyperlipidemia 09/2011 Stage IIa adenocarcinoma of sigmo id colon [id number] bph Surgical History Surgery Date(Month/Year) Pacemaker 07/2022 shoulder tear 2016 both eye cataract surgery 2017 right knee replacement 2016 Right Knee revision 02/2015 cataract surgery 2014 rotator cuff repair 2013 2011 sigmoid colectomy Jul 2011 transverse loop colostomy 1998 3 vessel CABG TKR right colonoscopy 2005
== END 2025-02-19 09:45 | disposition home or self-care (01) ==
LOC: HO.HPSW 09:03
PROVIDERS: PCP Internal Medicine; Visit Provider Nurse Practitioner Family
DX: R06.00 Dyspnea, unspecified (principal); R94.2 Abnormal results of pulmonary function studies
CPT/HCPCS: 99213

== ENCOUNTER → 2025-02-19 09:02 | Outpatient (BNVA) | payer MEDICARE, SELFPAY ==
[2023-03-31 07:35] VITALS: BP 100/58; BP 126/68
[2023-07-20 15:41] VITALS: BP 90/50; BMI 30.9
== END ==
PROVIDERS: PCP Internal Medicine; Visit Provider Nurse Practitioner Family
DX: R06.00 Dyspnea, unspecified (principal); R94.2 Abnormal results of pulmonary function studies; I25.5 Ischemic cardiomyopathy; Z95.1 Presence of aortocoronary bypass graft; Z95.0 Presence of cardiac pacemaker
CPT/HCPCS: 99212

== ENCOUNTER → 2025-04-02 23:59 | Outpatient (BNV) | payer MEDICARE, SELFPAY ==
[2023-03-31 07:35] VITALS: BP 100/58; BP 126/68
[2023-07-20 15:41] VITALS: BP 90/50; BMI 30.9
--- NOTE | 2025-04-03 10:45 | A.OFFVIS_ITS ---
Intake Visit Reasons: Remote device check- [facility] Allergies BERNABE Inhibitors (BERNABE INHIBITORS) Allergy (Intermediate, Verified 02/19/25 09:14) DEPRESSION latex (LATEX) Allergy (Intermediate, Verified 02/19/25 09:14) RASH terazosin Allergy (Intermediate, Verified 02/19/25 09:14) hives, swollen lips and hoarseness pravastatin (Pravachol) Allergy (Unknown, Verified 02/19/25 09:14) unknown bee pollen (bee stings) Adverse Reaction (Severe, Verified 02/19/25 09:14) Anaphylaxis Beta-Blockers (Beta-Adrenergic Bloc (BETA-BLOCKERS (BETA-ADRENERGIC BLOC) Adverse Reaction (Intermediate, Verified 02/19/25 09:14) DECREASED HR, DEPRESSION amoxicillin Allergy (Intermediate, Uncoded 02/19/25 09:14) hives, swollen lips, and hoarseness cephlex: levofloxacin Allergy (Intermediate, Uncoded 02/19/25 09:14) hives, swollen lips, and hoarseness clindomycin Allergy (Intermediate, Uncoded 02/19/25 09:14) hives, swollen lips, and hoarseness [facility] Medical History (Updated 02/19/25 @ 17:05 by Cora Sommers NP) SOB (shortness of breath) on exertion Acute bacterial sinusitis Impetigo Multiple pulmonary nodules Decreased diffusion capacity Dyspnea Diabetes mellitus with coincident hypertension Bruised ribs Cellulitis of nose Right leg pain Cough Hyperlipidemia associated with type 2 diabetes mellitus Diabetes mellitus Ischemic cardiomyopathy Pacemaker (~2021) Bradycardia (~2021) History of COVID-19 BPH (benign prostatic hyperplasia) Hypertension Obesity Tubular adenoma of colon COVID-19 vaccine administered History of colon cancer (~2010) PVC (premature ventricular contraction) SVT (supraventricular tachycardia) CAD (coronary artery disease) Surgical History (Updated 12/24/24 @ 14:14 by Christie Floyd MD) S/P cardiac cath History of pacemaker (~2021) History of coronary artery bypass graft x 3 (~1998) History of hernia repair (~2012) History of colonoscopy History of left knee surgery (~2003) History of right knee surgery History of colostomy (~2010) History of partial colectomy (~2011) History of tonsillectomy History of repair of rotator cuff History of cataract surgery (~2013) History of cardiac cath History of colostomy reversal (~2011) Family History Father Cancer, colon Mother Cancer of breast Cancer of lung Sister Cancer Social History Household Members: Spouse Housing: House Are you a primary emergency care attendant to a significant other at home: No Do you presently have visiting nurse or other home services: No Alcohol intake: current Alcohol intake frequency: 0-2 drinks per day Comment: 4x a week 2 drinks Patient Tobacco Use Status: Never used Tobacco Tobacco use type: Cigarette e-Cigarette/Vaping Use: Never Used Second Hand Smoke Exposure: No service: No Current occupational status: retired Cognitive needs: No Hearing needs: No Vision needs: Yes (glasses) Office Procedures Cardiac Device Check Cardiac Device Check Details: Remote pacemaker report generated 04/02/2025. Pacemaker function is adequate. [id number] Cardiac Device Interrogation, pacemaker Procedure code (CPT) selection complete Assessment & Plan Assessment & Plan (1) Pacemaker: Onset Date: ~2021 Comment: ([facility] DCPP - placed 06/18/22) Code(s): Z95.0 - Presence of cardiac pacemaker Category: Medical Plan: See above Coding Level of Care Code Procedure Only Diagnoses Pacemaker Z95.0 CPT Codes Cardiac Device Check - Cardiac Device 12: [id number] Cardiac Device Interrogation, pacemaker ([id number])
== END ==
PROVIDERS: PCP Internal Medicine; Visit Provider Internal Medicine Cardiovascular Disease
DX: Z45.018 Encounter for adjustment and management of other part of cardiac pacemaker (principal)
CPT/HCPCS: 93294

== ENCOUNTER 2025-04-23 09:13 | Outpatient (REF) | payer MEDICARE, SELFPAY ==
[2023-03-31 07:35] VITALS: BP 100/58; BP 126/68
[2023-07-20 15:41] VITALS: BP 90/50; BMI 30.9
--- OUTSIDE RECORDS SUMMARY | 2024-04-06 07:00 | XMS_ITS ---
Author Organization Ivan Llanes III, MD Address [address] [place] [address] Care Team Providers Care Staffing Branch Manager Name Role Phone ISMAEL RIDER Primary Care Provider [phone] Ivan Llanes Unavailable [phone] Allergies Allergen (clinical drug ingredient) Drug/Non Drug [...] Date Provider Diagnosis Ivan Llanes III, MD [address] [place] [address] [address] JAEGER BALJINDER, [place] [address] 04/06/2024 Ivan Llanes Malignant neoplasm o f colon, unspecified part of colon C18.9 ; BPH (benign prostatic hyperplasia) N40.0 ; Osteoarthritis of multiple joints, unspecified osteoarthritis type M15.9 ; Coronary artery disease involving [place] coronary artery without angina pectoris, unspecified whether [place] or transplanted heart I25.10 and Obesity E66.9 [...] good relief. 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 He was born [place], [place]. * Medications: T akingNitroglycerin 0.4 MG [...] 4 . C oronary artery disease involving [place] coronary artery without angina pectoris, unspecified whether [place] or transplanted heart - I25.10, Since his [...] 04/06/2024 Generated for Printi ng/Faxing/eTransmitting on: 0 04/23/2025 11:34 AM EDT History and Physical Notes * HPI (History of Present Illness) Category Sub-Category Detail Notes COVID-19 Screening Questions Have you had any new onset fever, chills, cough, congestion, sore throat, shortness of breath, muscle aches?: No Have you been exposed to the virus withi n the last 10 days?: No Have you travelled internationally in [facility] last 10 days?: No Have you [...]
--- OUTSIDE RECORDS SUMMARY | 2025-04-04 08:30 | XMS_ITS ---
Author Organization Ivan Llanes III, MD Address [address] [place] [address] [place] [address] Care Team Providers Care Classified Ad Taker Name Role Phone ISMAEL RIDER Primary Care Provider Ivan Llanes Unavailable [phone] REASON FOR VISIT Follow up Encounters Encounter Location Date Provider Diagnosis Ivan Llanes III, MD [address] [place] [address] [address] [place] [place] [address] 04/04/2025 Ivan Llanes Plan Of Treatment No Information Progress Notes * Kartik CARRASCODOB: 7 (80 yo M)Acc No.[id number]:04/04/2025 Progress Notes Patient: Kartik PALACIO Provider: Elizabeth Llanes MD :1945 A ge:80 Y S ex:Male Date:04/04/2025 Address:[address] [id number] Pcp:ISMAEL RIDER Subjective: * Chief Complaints: * [...] 0 04/04/2025 Generated for Printi ng/Faxing/eTransmitting on: 0 04/23/2025 11:35 AM EDT
--- OUTSIDE RECORDS SUMMARY | 2025-04-15 07:00 | XMS_ITS ---
Author Organization Ivan Llanes III, MD Address [address] [facility] [address] Care Team Providers Care Blasting Cap Assembler Name Role Phone ISMAEL RIDER Primary Care Provider Ivan Llanes Unavailable [phone] Allergies Allergen (clinical drug ingredient) Drug/Non Drug [...] Provider Diagnosis Ivan Llanes III, MD [address] [place] [address] [place] [address] 04/15/2025 Ivan Llanes Malignant neoplasm o f colon, unspecified part of colon C18.9 ; BPH (benign prostatic hyperplasia) N40.0 ; Osteoarthritis of multiple joints, unspecified osteoarthritis type M15.9 and Coronary artery disease involving [place] coronary artery without angina pectoris, unspecified whether [place] or transplanted heart I25.10 Assessments Encounter Date [...] good relief. 04/15/2025 Coronary artery disease involving [place] coronary artery without angina pectoris, unspecified whether [place] or transplanted heart (ICD-10 - I25.10) Since [...] * Kartik CARRASCODOB: 7 (80 yo M)Acc No.[id number]:04/15/2025 Progress Notes Patient: Lester PALACIOard Provider: Elizabeth Llanes MD :1945 A ge:80 Y S ex:Male Date:04/15/2025 Address: [address], [place], [id number] Pcp:ISMAEL RIDER Subjective: * Chief Complaints: * [...] cuff repair 2014cataract surgery 2014Right Knee revision 02/2015rig knee replacement 2016bo eye cataract surgery 2017shoulder [...] 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 * Medications: T akingNitroglycerin 0.4 MG [...] 4 . C oronary artery disease involving [place] coronary artery without angina pectoris, unspecified whether [place] or transplanted heart - I25.10 N otes [...] MD Date: 0 04/15/2025 Generated for Ольгаi ng/Nellg/eTransmitting on: 0 04/23/2025 11:34 AM EDT History [...]
[2025-04-23 09:29] LABS: MANUAL DIFF FLAG NO
[2025-04-23 10:38] LABS: Hematocrit 48.2 % (42.0-52.0); Hemoglobin 15.8 g/dl (14.0-18.0); Imm Gran Abs Auto 0.02 X10*3/uL (0.00-0.03); Imm Gran Pct Auto 0.3 % (0.0-0.4); Lymphocytes Absolute Auto 1.5 X10*3/uL (1.2-4.9); Mean Corpuscular HGB Conc 32.8 g/dl (31.0-36.0); Mean Corpuscular Hemoglobin 29.0 pg (27.0-33.0); Mean Corpuscular Volume 88.4 fL (80.0-98.0); NRBC Abs Auto 0.000 X10*3/uL (0.0-0.012); NRBC Pct Auto 0.0 /100WBC (0.0-0.2); Platelet Count 182 X10*3/uL (160-400); Red Blood Count 5.45 X10*6/uL (4.60-5.80); White Blood Count 7.1 X10*3/uL (4.8-10.8)
[2025-04-23 10:46] LABS: Hemoglobin A1C 258.4183 umol/L; Total Hemoglobin (HGBA1C) 4077.2393 umol/L
--- OUTSIDE RECORDS SUMMARY | 2025-04-23 11:35 | XMS_ITS | Patient Health Record ---
Author Organization [facility] Address [address] [place] [address] Care Team Providers Care Investment Trader Name Role Phone Steph MARK, Mckinley Primary Care Provider Ivan Powell Unavailable [phone] Allergies Allergen (clinical drug ingredient) Drug/Non Drug [...] Status Risk Notes Problem Digestive system symptom (945140122) Other symptoms involving digestive system (787.99) Active confirmed Problem Right lower quadrant pain (311596933) Abdominal pain, right lower quadrant (789.03) Active confirmed Problem Left lower quadrant pain (710785343) Abdominal pain, left lower quadrant (789.04) Active confirmed Problem Epigastric pain (29088540) Abdominal pain, epigastric (789.06) Active confirmed Problem Abnormal findings diagnostic imaging of liver and biliary tract (907811593) Nonspecific abnormal findings on radiological and other examination of biliary tract (793.3) Active confirmed Problem Family history of malignant neoplasm of gastrointestinal tract (943420136) Family history of malignant neoplasm of gastrointestinal tract (V16.0) Active confirmed Plan Of Treatment Pending Test Test Name Order Date ENDOMYSIAL IGA 07/22/2011 TRANSGLUTAMINASE AB IGA 07/22/2011 TRANSGLUTAMINASE AB IGG 07/22/2011 Future Test Test Name Order Date COLONOSCOPY 07/22/2011 Insurance Providers Payer Name Payer Address Payer Phone Subscriber Number Group Number Insured Name Patient Relationship to Insured Coverage Start Date Coverage End Date [facility] PROFESSIONAL CLAIMS [address] [place] [address] [id number] ROXY CARRASCO Self - patient is [...]
--- OUTSIDE RECORDS SUMMARY | 2025-04-23 11:35 | XMS_ITS | Encounter Summary ---
Author Organization [facility] Address [address] [place] [address] Phone Care Team Providers Care Cement Kiln Operator Name Role Phone Mckinley Choi MD Primary Care Provider [phone] Christie Floyd MD Primary Care Provider [phone] Mckinley Choi MD Primary Care Provider [phone] Reason for Referral * MRI/CAT Scan - Closed Specialty Diagnoses / Procedures Referred By Bari nicole Referred To Contact Radiology Diagnoses Atherosclerosis of [place] coronary artery of [place] heart without angina pectoris Procedures NC Myocardial Perfusion Stress Single NC Myocardial Perfusion Exercise Multiple Wandy Bridges NP Phone: tel: [email or web address] Referral ID Status Reason Start Date Expiration Date Visits Re quested Visits Authorized [id number] Closed 10/21/2017 10/21/2018 1 1 Encounter Details Date Type Department Care Team (Latest Contact Info) Description 11/02/2017 Ancillary Orders [facility] [address], [address] [place] [address] Wandy Bridges NP [address] [place] [address] [email or web address] Atherosclerosis of [place] coronary artery of [place] heart without angina pectoris Social History Tobacco Use Types Packs/Day Years Used Date Smoking Tobacco: Never Smokeless Tobacco: Never Alcohol Use Standard Drinks/Week Comments Yes 0 (1 standard drink = 0.6 oz pur e alcohol) Sex and Gender Information Value Date Recorded Sex Assigned at Not on file Legal Sex Male 10:07 PM EDT Gender Identity Not on file Sexual Orientation Not on file documented as of this encounter Plan of Treatment Not on file documented as of this encounter Results * NC Myocardial Perfusion Stress Single (11/02/2017 1:27 PM EDT) Nuc Stress EF 50 % LV Systolic Volume Index 50 mL/m2 LV Diastolic Volume Index 99 mL/m2 Anatomical Region Laterality Modality Heart Ultrasound Narrative 11/03/2017 3:55 PM EDT Left ventricular perfusion is normal. This is a low risk study. Normal study. There is no evidence of myocardial infarction or ischemia. Normal LV size and function with no regional wall motion abnormalities. Very low likelihood of hemodynamically significant coronary artery disease. Low risk study for myocardial events or cardiac in the next two years. Compared to study from September 09, 2016, no change. Nuclear Study Quality Overall image quality is good. There are no artifacts present. Response to Stress REGADENOSON Exercise Stress Test Report: Reason for termination: Protocol complete Summary: Resting ECG: SR HR 72 NSSTW Functional capacity: Not assessed Heart rate response to exercise: Not assessed Blood pressure response to exercise: Not assessed Chest pain:None Arrhythmias: Occasional PVC's ST-T changes:None Overall impression: Nondiagnostic stress test Conclusion: Pharmacologic stress test. Patient unable to complete test on TM due knee pain. The patient was infused with 0.4 mg of Regadenoson (Lexiscan) intravenously over 10 seconds followed immediately by the injection of the Tc99m Sestamibi. Patient tolerated Lexiscan infusion without complications. Test terminated due to completion of protocol. Summary: 1. EKG: No EKG changes suggestive of ischemia 2. Symptoms: No chest pain or symptoms concerning for angina 3. Exercise physiology: Not assessed due to pharmacologic study 4. Arrhythmia: None Conclusion: Pharmacologic stress test. No ischemic EKG changes from baseline with pharmacologic protocol.Patient hemodynamically stable at completion of exam. Nuclear image results pending. EKG reviewed with Dr. Case. Wandy Bridges TOOL TROUBLE SHOOTER . Stress Function Comments Post-stress ejection fraction was 50%. Stress end diastolic index: 99 mL/m2. Stress end systolic index: 50 mL/m2. Nuc Stress Combined Conclusion Left ventricular perfusion is normal. This is a low risk study. Nuclear Prior Study There is a prior study available for comparison that was performed on 09/09/2016. Perfusion Scoring Stress Summed Score: 0 Percent Normal: 0.00% The left ventricular perfusion is normal. 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 documented in this encounter Care Teams Cement Kiln Operator Relationship Specialty Start Date End Date Mckinley Choi MD [address] [place] [address] Dr Mary [address] [place] [address] PCP - General 05/26/17 12/08/17 Christie Floyd MD [address] [place] [address] [address] [place] [id number] PCP - General Internal Medicine 12/09/17 01/08/18 Mckinley Choi MD [address] [place] [address] Dr Mary [address] [place] [address] PCP - General Internal Medicine 01/09/18 documented as of this encounter Additional Source Comments The information contained in this document represents components of the legal health record. It is not the complete legal health record.[facility]
--- OUTSIDE RECORDS SUMMARY | 2025-04-23 11:35 | XMS_ITS | Clinical Summary ---
Author Organization [facility] Address [address] [address] Phone Care Team Providers Care Chief Librarian Music Department Name Role Phone Mckinley Choi MD Primary Care Provider [phone] Allergies Active Allergy Reactions Criticality Noted Date Comments Amoxicillin Anaphylaxis,Hives,[facility] 12/09/2017 facial Beta-Blockers (Beta-Adrenergic Blocking Agts) Anxiety Low 10/21/2017 Clindamycin Hcl Anaphylaxis,Hives,[facility] 12/09/2017 Swelling for the lips Levofloxacin Anaphylaxis,Hives,[facility] 12/09/2017 Swelling of the lips Medications ezetimibe (ZETIA) 10 mg tablet Take 10 mg by mouth daily. Active tamsulosin (FLOMAX) 0.4 mg Cp24 Take 0.4 mg by mouth daily. Active aspirin 81 MG EC tablet Take 81 mg by mouth daily. Active FLUTICASONE PROPIONATE (FLONASE NASL) by Nasal route. Active atorvastatin (LIPITOR) 20 MG tablet Take 20 mg by mouth daily. Active metoprolol succinate (TOPROL-XL) 25 MG 24 hr tablet Take 1 tablet (25 mg total) by mouth daily. 30 tablet 11 8 Active atorvastatin (LIPITOR) 40 MG tabletIndications:Par oxysmal supraventricular tachycardia TAKE ONE-HALF TABLET BY MOUTH ONCE DAILY 90 tablet 3 8 Active Active Problems Problem Noted Date Diagnosed Date Ventricular ectopy 12/09/2017 Overview (12/09/2017): 23% on recent Holter with 3 3 beat runs. Unifocal. Assessment & Plan (12/09/2017 3:18 PM EDT): Although he is asymptomatic at this frequency could in some instances lead to a cardiomyopathy. He did not tolerate beta blockers immediately after his surgery but that was 18 years ago and I think it's worth at least trying them again. With that in mind I'm starting a very small dose of metoprolol at 25 mg XL just to see tolerance and I'll bring him back in several weeks. Paroxysmal supraventricular tachycardia 07/06/20 17 Assessment & Plan (10/21/2017 1:06 PM EDT): EKG showing SR with heart rate of 76 BPM. Rediscussed risks and benefits regarding prophylactic treatment for PSVT. He is adamantly against taking additional medications. --The patient will continue to monitor his pulse --Return to the emergency room with if he becomes symptomatic Assessment & Plan (07/06/2017 3:43 PM EST): The patient was recently seen in the emergency room at [facility] for symptomatic PSVT with HR 180's. He had successful conversion to sinus rhythm after being treated with Adenosine. He was started on Cardizem CD 120 mg PO Daily but stopped after 10 days. He tells me that he does not want to take any additional medications. We discussed the risks and benefits regarding prophylactic treatment for PSVT. He verbalizes understanding and is aware of reoccurrence of PSVT without it. We also discussed the option of ablation for reoccurrence. He is open to discuss this further in the future. EKG today showing sinus rhythm with a heart rate of 80 BPM. --The patient will have a follow up visit in two months, he will call sooner with any issues, --He will continue to monitor his pulse --Return to the emergency room with any if symptomatic Benign prostatic hyperplasia 07/06/2017 Coronary artery disease invo lving [place] coronary artery of [place] heart without angina pectoris 07/06/2017 Overview (12/09/2017): 2000 CABG X 3 Assessment & Plan (10/21/2017 11:12 AM EDT): EKG today that the patient remains in sinus rhythm with heart rate of 76 bpm. He denies palpitations or chest pain. However, he has been getting short of breath with exertion and dizzy when he bends over. --We will obtain an echocardiogram and nuclear stress test for further investigation of ischemia related sob --He will follow up with Dr. Barnett after his Assessment & Plan (07/06/2017 3:50 PM EST): He was recently admitted to [facility] this past June with an episode of chest pain and found to be in PSVT. He was converted back to NSR and stabilized. His recent nuclear stress test was normal with no ischemia and an EF in the 50's. Blood pressure today is well controlled. --He will continue his current dose of aspirin, Lipitor, and Zetia. Colon cancer 07/06/2017 Mixed hyperlipidemia 07/06/2017 Assessment & Plan (10/21/2017 1:12 PM EDT): He brings in a list of his current lipid panel with the last one completed in October,. HDL 33, LDL 92, total cholesterol 140, triglycerides 106. Discussed in his dosage of atorvastatin or converting to Crestor, he is not able to tolerate her doses of statins and he is not able to tolerate Crestor, has tried it in the past. Discussed the possibility of PSK 9 inhibitors at this time he would like to think about it as he is close to goal. --Continue current dose of aspirin, Lipitor and Zetia --Goal LDL<70 Assessment & Plan (07/06/2017 3:51 PM EST): Normal LFTs on his admission [facility] in June --He will continue his current dose of aspirin, Lipitor, and Zetia Family History Medical History Relation Comments Cancer Father 2 Cancer Mother 2 Relation Status Comments Father 1 Father 2 Mother 1 Mother 2 Social History Tobacco Use Types Packs/Day Years Used Date Smoking Tobacco: Never Smokeless Tobacco: Never Alcohol Use Standard Drinks/Week Comments Yes 0 (1 standard drink = 0.6 oz pur e alcohol) Education Answer Date Recorded Are you interested in more education? Not on kings e 12/03/2022 Are you concerned about learning? Not on file 12/03/2022 No 12/03/2022 No 12/03/2022 Digital Access Answer Date Recorded No 01/01/2023 No 01/01/2023 Reliable internet access at home? Not on file 01/01/2023 Device with a working camera? Not on file Sex and Gender Information Value Date Recorded Sex Assigned at Not on file Legal Sex Male 10:07 PM EDT Gender Identity Not on file Sexual Orientation Not on file Last Filed Vital Signs Vital Sign Reading Time Taken Comments Blood Pressure 126/88 12/09/2017 2:19 PM EDT Pulse 70 12/09/2017 2:19 PM EDT Temperature - - Respiratory Rate - - Oxygen Saturation 96% 12/09/2017 2:19 PM EDT Inhaled Oxygen Concentration - - Weight 100.1 kg (220 lb 11.2 oz) 12/09/2017 2:19 PM EDT Height 175.3 cm (5' 9 ) 10/21/2017 8:36 AM EDT Body Mass Index 32.59 10/21/2017 8:36 AM EDT Plan of Treatment Health Maintenance Due Date Last Done Comments Adult Td,Tdap Booster 1945 DEPRESSION SCREENING 1959 HEPATITIS C SCREENING 1965 ZOSTER VACCINES (2 of 2) 01/30/2019 12/05/2018 RSV VACCINE (1 - 1-dose 75+ series) 2022 INFLUENZA VACCINE (#1) 2025 , 05/18/2018, 03/31/2017, Additional history exists COVID-19 VACCINE ( - 2024- season) 2025 10/24/2020, 10/01/2020 SMOKING STATUS SCREENING (Once After 26 Yrs) Completed 12/09/2017 PNEUMOCOCCAL VACCINES (50+ years) Completed 06/03/2018, 06/02/2017 HEPATITIS A VACCINES Aged Out No long er eligible based on patient's age to complete this topic HIB VACCINES Aged Out No longer eligi ble based on patient's age to complete this topic MENINGOCOCCAL VACCINES (ACWY) Aged Out No longer eligible based on patient's age to complete this topic MENINGOCOCCAL VACCINES (B) Aged Out N o longer eligible based on patient's age to complete this topic Medical Devices Not on file Insurance MEDICARE PART A & B [employer] SUPPLEMENT MEDICARE PART A & B [employer] MED[employer] SUPPLEMENT MEDICARE PART A & B [employer] MEDEX SUPPLEMENT [place] MEDICARE PART A & B [employer] MEDEX SUPPLEMENT MEDICARE PART A & B [facility] MEDEX SUPPLEMENT MEDICARE PART A & B [employer] MED[employer] SUPPLEMENT MEDICARE PART A & B [employer] MEDEX SUPPLEMENT MEDICARE PART A & B [email or web address] MEDEX SUPPLEMENT MEDICARE PART A & B [email or web address] CROSS MEDEX SUPPLEMENT Care Teams Chief Librarian Music Department Relationship Specialty Start Date End Date Mckinley Choi MD NPI: [id number] [place] [address] [place] [address] PCP - General Internal Medicine 01/09/18 Additional Source Comments The information contained in this document represents components of the legal health record. It is not the complete legal health record.[facility]
--- OUTSIDE RECORDS SUMMARY | 2025-04-23 11:35 | XMS_ITS | Patient Health Record ---
Author Organization Ivan Llanes III, MD Address [address] [place] [address] Care Team Providers Care Hat Block Bench Hand Name Role Phone ISMAEL RIDER Primary Care Provider Ivan Llanes Unavailable [phone] Allergies Allergen (clinical drug ingredient) Drug/Non Drug [...] nonsmoker Additional Findings: Tobacco Non-User Aggressive non-smoker Problems Problem Type SNOMED Code ICD Code Onset Dates Problem Status W/U Status Risk Notes Problem 828103412 Obesity (E66.9) Active confirmed He has lost 3 pounds. We discussed diet and nutrition today. We reviewed his weight loss strategy. We made a plan to lose weight at a rate of one half of a pound per week. Problem 107627185 BPH (benign prostatic hyperplasia) (N40.0) Active confirmed He is taking 3 medications arises from sleep 4 times a night. He will follow up with primary care and urology. Problem 760736710 Osteoarthritis of multiple joints, unspecified osteoarthritis type (M15.9) Active confirmed He has mild symptoms arthritis in his knees. He is taking ibuprofen with good relief. Problem 008061490 Erythrocytosis (D75.1) Active confirmed Numerous recent CBC determinations show his hematocrit to be normal. Problem 767783337 Coronary artery disease involving [place] coronary artery without angina pectoris, unspecified whether [place] or transplanted heart (I25.10) Active confirmed Since his las t visit he has had no episodes of angina with exertion or at rest. There is no need to change his regimen at this time. Problem 182492898 Malignant neoplasm of colon, unspecified part of colon (C18.9) Active confirmed There is no sign of disease recurrence or of a new primary tumor. He will continue with surveillance and periodic colonoscopies.He will return to this office on an as-needed basis. Problem 918593403 Hyperlipidemia type II (E78.01) Active confirmed His lipids are stable and no change in his regimen was made today. I advised aggressive weight loss. Vital Signs Heart Rate 68 /min 04/15/2025 Temperature 98.0 degrees Fahrenheit 04/15/2025 Blood pressure diastolic 68 mm Hg 04/15/2025 Height 69 in 04/15/2025 Blood pressure systolic 120 mm Hg 04/15/2025 Weight 199 lbs 04/15/2025 BMI 29.38 kg/m2 04/15/2025 Encounters Encounter Location Date Provider Diagnosis Ivan Llanes III, MD [address] [place] [address] [place] [address] 04/15/2025 Ivan Llanes Malignant neoplasm o f colon, unspecified part of colon C18.9 ; BPH (benign prostatic hyperplasia) N40.0 ; Osteoarthritis of multiple joints, unspecified osteoarthritis type M15.9 and Coronary artery disease involving [place] coronary artery without angina pectoris, unspecified whether [place] or transplanted heart I25.10 Assessments Encounter Date Diagnosis (ICD Code) Assessment Notes Treat ment Notes Treatment Clinical Notes 04/15/2025 BPH (benign prostati c hyperplasia) (ICD-10 - N40.0) He is taking 3 medications arises from sleep 4 times a night. He will follow up with primary care and urology. 04/15/2025 Malignant neoplasm o f colon, unspecified part of colon (ICD-10 - C18.9) There is no sign of disease recurrence or of a new primary tumor. He will continue with surveillance and periodic colonoscopies.He will return to this office on an as-needed basis. 04/15/2025 Osteoarthritis of multiple joints, unspecified osteoarthritis type (ICD-10 - M15.9) He has mild symptoms arthritis in his knees. He is taking ibuprofen with good relief. 04/15/2025 Coronary artery disease involving [place] coronary artery without angina pectoris, unspecified whether [place] or transplanted heart (ICD-10 - I25.10) Since his last visit he has had no episodes of angina with exertion or at rest. There is no need to change his regimen at this time. Plan Of Treatment Pending Test Test Name [...] 12/19/2017 ERYTHROPOIETIN 12/19/2017 JAK2 MUTATION PCR 12/19/2017 Insurance Providers Payer Name Payer Address Payer Phone Subscriber Number Group Number Insured Name Patient Relationship to Insured Coverage Start Date Coverage End Date MEDICARE NGS [address] SRIR[place] NevaehGILLIAN [address] [id number] Kartik Ortiz Self - patient is the insured [facility] [address] [place], [place] [id number] [phone] [id number] Kartik Ortiz Self - patient is the insured Medical (General) History Medical History History ICD Code coronary artery disease CABG 1998 hyperlipidemia 09/2011 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
[2025-04-23 12:08] LABS: Folate 9.0 ng/mL (> or = 4.0); Vitamin B12 158 pg/mL (200-900)
[2025-04-23 12:23] LABS: Alanine Aminotransferase 25 U/L (0-40); Albumin Level 4.1 g/dL (3.5-5.0); Alkaline Phosphatase 62 U/L (39-117); Anion Gap 14 (12-20); Aspartate Amino Transferase 30 U/L (5-37); Blood Urea Nitrogen 18 mg/dL (9-16); Calcium 9.1 mg/dL (8.4-10.2); Carbon Dioxide 22 mmol/L (22-29); Chloride 107 mmol/L (96-108); Cholesterol 128 mg/dL (<200); Estimated Glomerular Filt Rate > 60; HDL Cholesterol 32 mg/dL (>40); Potassium 4.0 mmol/L (3.3-5.1); Sodium 139 mmol/L (135-145); Total Protein 7.0 g/dL (6.5-8.0); Triglycerides 126 mg/dL (<150)
[2025-04-23 12:27] LABS: Free T4 (Free Thyroxine) 0.88 ng/dL (0.71-1.85); Thyroid Stimulating Hormone 1.41 uIU/mL (0.32-4.0)
[2025-04-23 12:35] LABS: Microalbum/Creatinine Ratio Ur 26.0 ug/mg cr (<30)
== END 2025-04-23 09:14 | disposition home or self-care (01) ==
LOC: HO.LAB 09:13
PROVIDERS: PCP Internal Medicine; Visit Provider Internal Medicine
DX: E78.00 Pure hypercholesterolemia, unspecified (principal); E11.65 Type 2 diabetes mellitus with hyperglycemia
CPT/HCPCS: 36415; 80053; 80061; 82043; 82570; 82607; 82746; 83036; 84439; 84443; 85025

== ENCOUNTER 2025-04-25 08:33 | Outpatient (AMB) | payer MEDICARE, SELFPAY ==
[2023-03-31 07:35] VITALS: BP 100/58; BP 126/68
[2023-07-20 15:41] VITALS: BP 90/50; BMI 30.9
--- OUTSIDE RECORDS SUMMARY | 2024-04-06 07:00 | XMS_ITS ---
Author Organization Ivan Llanes III, MD Address [address] [place] [address] Care Team Providers Care Chest Pain Coordinator Name Role Phone ISMAEL RIDER Primary Care Provider [phone] Ivan Llanes Unavailable [phone] Allergies Allergen (clinical drug ingredient) Drug/Non Drug [...] Date Provider Diagnosis Ivan Llanes III, MD [address] [place] [address] DR JAEGER BALJINDER, [place] [address] 04/06/2024 Ivan Llanes Malignant neoplasm o f colon, unspecified part of colon C18.9 ; BPH (benign prostatic hyperplasia) N40.0 ; Osteoarthritis of multiple joints, unspecified osteoarthritis type M15.9 ; Coronary artery disease involving [place] coronary artery without angina pectoris, unspecified whether [place] or transplanted heart I25.10 and Obesity E66.9 [...] good relief. 04/06/2024 Coronary artery disease involving [place] coronary artery without angina pectoris, unspecified whether [place] or transplanted heart (ICD-10 - I25.10) Since [...] * Kathi CARRASCO: 7 (79 yo M)Acc No.[id number]:04/06/2024 Progress Notes Patient: Kartik Crespo Provider: Elizabeth Llanes MD :1945 A ge:79 Y S ex:Male Date:04/06/2024 Address: [address], [facility], [id number] Pcp:Mckinley Choi MD Subjective: * Chief Complaints: [...] Medical History: * Surgical History: c olonoscopy 2006 TKR right 1998 3 vessel CABG Jul [...] Disability Studies at [employer]; 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 He was born [place], [place]. * Medications: T akingNitroglycerin 0.4 MG [...] 4 . C oronary artery disease involving [place] coronary artery without angina pectoris, unspecified whether [place] or transplanted heart - I25.10, Since his [...] 0 04/06/2024 Generated for Printi ng/Faalyseg/eTransmitting on: 0 04/25/2025 09:46 AM EDT History and Physical Notes * HPI (History of Present Illness) Category Sub-Category Detail Notes COVID-19 Screening Questions Have you had any new onset fever, chills, cough, congestion, sore throat, shortness of breath, muscle aches?: No Have you been exposed to the virus withi n the last 10 days?: No Have you travelled internationally in [facility] last 10 days?: No Have [...]
--- OUTSIDE RECORDS SUMMARY | 2025-04-04 08:30 | XMS_ITS ---
Author Organization Ivan Llanes III, MD Address [address] [place] [address] [place] [address] Care Team Providers Care Coordinator Of Genetic Services Name Role Phone ISMAEL RIDER Primary Care Provider [phone] Ivan Llanes Unavailable [phone] REASON FOR VISIT Follow up Encounters Encounter Location Date Provider Diagnosis Ivan Llanes III, MD [address] [place] [address] [address] [place] [facility] [place] [address] 04/04/2025 Ivan Llanes Plan Of Treatment No Information Progress Notes * aKrtik CARRASCODOB: 7 (80 yo M)Acc No.[id number]:04/04/2025 Progress Notes Patient: Kartik PALACIO Provider: Elizabeth Llanes MD :1945 A ge:80 Y S ex:Male Date:04/04/2025 Address:[address] [id number] Pcp:ISMAEL RIDER Subjective: * Chief Complaints: * [...] 0 04/04/2025 Generated for Printi ng/Faxing/eTransmitting on: 04/25/2025 09:46 AM EDT
--- OUTSIDE RECORDS SUMMARY | 2025-04-15 07:00 | XMS_ITS ---
Author Organization Ivan Llanes III, MD Address [address] [address] Care Team Providers Care Crew Scheduler Name Role Phone ISMAEL RIDER Primary Care Provider Ivan Llanes Unavailable [phone] Allergies Allergen (clinical drug ingredient) Drug/Non Drug [...] Provider Diagnosis Ivan Llanes III, MD [address] [place] [address] [place] [address] 04/15/2025 Ivan Llanes Malignant neoplasm o f colon, unspecified part of colon C18.9 ; BPH (benign prostatic hyperplasia) N40.0 ; Osteoarthritis of multiple joints, unspecified osteoarthritis type M15.9 and Coronary artery disease involving [place] coronary artery without angina pectoris, unspecified whether [place] or transplanted heart I25.10 Assessments Encounter Date [...] good relief. 04/15/2025 Coronary artery disease involving [place] coronary artery without angina pectoris, unspecified whether [place] or transplanted heart (ICD-10 - I25.10) Since [...] * Kartik CARRASCODOB: [birth year] (80 yo M)Acc No.[id number]:04/15/2025 Progress Notes Patient: Lester PALACIOard Provider: Elizabeth Llanes MD :1945 A ge:80 Y S ex:Male Date:04/15/2025 Address: [address], [place], [id number] Pcp:ISMAEL RIDER Subjective: * Chief Complaints: * H istory colon cancerCoronary artery diseaseBenign prostatic hypertrophy * HPI: C OVID-19 Screening: He returns for his last surveillance visit for colon cancer. He feels healthy and well. There have been no cases of malignancy in his immediate family. He continues in halfway without complaints. 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 * Medications: T akingNitroglycerin 0.4 MG [...] 4 . C oronary artery disease involving [place] coronary artery without angina pectoris, unspecified whether [place] or transplanted heart - I25.10 N otes [...] 0 04/15/2025 Generated for Ольгаi ng/Nellg/eTransmitting on: 04/25/2025 09:46 AM EDT History and Physical [...]
[2025-04-25 08:35] VITALS: BP 118/62; PULSE 64; O2SAT 98; BMI 29.4
--- NOTE | 2025-04-25 08:35 | A.OFFPC_ITS ---
Vital Signs 04/25/25 08:35 Height 5 ft 9 in Weight 199 lb 2 oz BMI 29.4 BP 118/62 Blood Pressure Location Lt brachial Position Sitting Pulse 64 Pulse Oximetry (%) 98 Oxygen Delivery Method Room Air Intake Visit Reasons: DM Glue Maker Bone Required: No Accompanied by: Self / Same As Patient Allergies BERNABE Inhibitors (BERNABE INHIBITORS) Allergy (Intermediate, Verified 04/25/25 08:38) DEPRESSION latex (LATEX) Allergy (Intermediate, Verified 04/25/25 08:38) RASH terazosin Allergy (Intermediate, Verified 04/25/25 08:38) hives, swollen lips and hoarseness pravastatin (Pravachol) Allergy (Unknown, Verified 04/25/25 08:38) unknown bee pollen (bee stings) Adverse Reaction (Severe, Verified 04/25/25 08:38) Anaphylaxis Beta-Blockers (Beta-Adrenergic Bloc (BETA-BLOCKERS (BETA-ADRENERGIC BLOC) Adverse Reaction (Intermediate, Verified 04/25/25 08:38) DECREASED HR, DEPRESSION amoxicillin Allergy (Intermediate, Uncoded 02/19/25 09:14) hives, swollen lips, and hoarseness cephlex: levofloxacin Allergy (Intermediate, Uncoded 02/19/25 09:14) hives, swollen lips, and hoarseness clindomycin Allergy (Intermediate, Uncoded 02/19/25 09:14) hives, swollen lips, and hoarseness Medication List - Last Reconciled 04/25/25 by Christie Floyd MD albuterol sulfate 90 mcg/actuation 2 puffs inhalation Q4-6H PRN aspirin (Adult Low Dose Aspirin) 81 mg PO DAILY bisoprolol fumarate 2.5 mg (1/2 x 5 mg) PO DAILY blood sugar diagnostic ([employer] Verio test strips) 1 Strip Once a Day blood-glucose meter ([employer] Verio Meter) to check blood sugars once a day diphenhydramine HCl (Benadryl Allergy) 25 mg PO TID PRN ezetimibe (Zetia) 10 mg PO DAILY finasteride 5 mg PO DAILY fluticasone propionate 50 mcg/actuation (Flonase Allergy Relief) 1 spray intranasal DAILY lancets ([employer] Delica Lancets) to check blood sugars once a day mupirocin 2% 1 appl topical TID nitroglycerin 0.4 mg sublingual Q5M PRN Tobacco use date assessed: 08/30/24 Fall risk assessment: No Falls in past year Last assessed Fall Risk: 04/25/25 Dental Screening Dental Screen Date: 04/25/25 Did you have a dental visit in the last 12 months?: Yes Did you have a dental problem in the last 6 months where you did not have access to dental care?: No Was dental information given to patient?: Patient has dentist [facility] Medical History SOB (shortness of breath) on exertion Acute bacterial sinusitis Impetigo Multiple pulmonary nodules Decreased diffusion capacity Dyspnea Diabetes mellitus with coincident hypertension Bruised ribs Cellulitis of nose Right leg pain Cough Hyperlipidemia associated with type 2 diabetes mellitus Diabetes mellitus Ischemic cardiomyopathy Pacemaker (~2021) Bradycardia (~2021) History of COVID-19 BPH (benign prostatic hyperplasia) Hypertension Obesity Tubular adenoma of colon COVID-19 vaccine administered History of colon cancer (~2010) PVC (premature ventricular contraction) SVT (supraventricular tachycardia) CAD (coronary artery disease) Surgical History S/P cardiac cath History of pacemaker (~2021) History of coronary artery bypass graft x 3 (~1998) History of hernia repair (~2012) History of colonoscopy History of left knee surgery (~2003) History of right knee surgery History of colostomy (~2010) History of partial colectomy (~2011) History of tonsillectomy History of repair of rotator cuff History of cataract surgery (~2013) History of cardiac cath History of colostomy reversal (~2011) Family History Father Cancer, colon Mother Cancer of breast Cancer of lung Sister Cancer Social History Household Members: Spouse Housing: House Are you a primary career discovery teacher to a significant other at home: No Do you presently have visiting nurse or other home services: No Alcohol intake: current Alcohol intake frequency: 0-2 drinks per day Comment: 4x a week 2 drinks Patient Tobacco Use Status: Never used Tobacco Tobacco use type: Cigarette e-Cigarette/Vaping Use: Never Used Second Hand Smoke Exposure: No service: No Current occupational status: retired Cognitive needs: No Hearing needs: No Vision needs: Yes (glasses) Questionnaire Thrive Questionnaire Date Thrive assessed: 12/18/24 I am a: Patient What is your living situation today?: I have a steady place to live Within the past 12 months, did the food you bought not last and you didn't have the money to get more?: Never true Within the past 12 months, did you worry whether your food would run out before you got money to buy more?: Never true Do you have trouble paying for medicines?: No Do you have trouble getting transportation to medical appointments?: No Do you have trouble paying your heating and electricity bill?: I choose not to answer this question Do you have trouble taking care of your child, family member or friend?: I choose not to answer this question Do you have trouble with day-to-day activities such as bathing, preparing meals, shopping, managing finances, etc.?: I choose not to answer this question Are you currently unemployed and looking for a job?: No Are you interested in more education?: No Please select the resources that you would like help with: None Currently or been in a relationship where the following occur: No concerns reported THRIVE Score: 0 JOE-7 AMB Questionnaire JOE-7 Date JOE - 7 assessed: 08/30/24 Source: Developed by Drs. Ivan Humphrey, Rachel Sigala, Bradley Rojas and colleagues, with an educational henry from [employer]. Physical exam (Primary Care) Vital Signs: Last Vital Signs Pulse 64 04/25/25 08:35 BP 118/62 04/25/25 08:35 Pulse Ox 98 04/25/25 08:35 Oxygen Delivery Method Room Air 04/25/25 08:35 BMI result Body Mass Index 29.4 Tobacco/Smoking Status: Tobacco use Status Tobacco use date assessed 08/30/24 04/25/25 08:36 Patient Tobacco Use Status Never used Tobacco 04/25/25 08:36 Tobacco use type Cigarette 04/25/25 08:36 e-Cigarette/Vaping Use Never Used 04/25/25 08:36 Thrive Assessment: Date of Thrive Assessment Date Thrive assessed 12/18/24 04/25/25 08:36 Currently or been in a relationship where the following occur: No concerns reported Const General: alert; No acute distress Eyes Conjunctivae: conjunctivae normal Resp Auscultation: clear to auscultation bilaterally Cardio Rate: regular rate Rhythm: regular rhythm GI Inspection: Yes normal to inspection Extrem General: Yes normal to inspection and No edema Coding Level of Care Code Est Pt Level 4 (27625) Complex EM visit Add On G2211 Diagnoses Ischemic cardiomyopathy I25.5 Hypertension I10 CAD (coronary artery disease) I25.10 Pacemaker Z95.0 Hypercholesterolemia E78.00 Type 2 diabetes mellitus with hyperglycemia E11.65 Assessment & Plan Assessment & Plan (1) Ischemic cardiomyopathy: Code(s): I25.5 - Ischemic cardiomyopathy Category: Medical Plan: Continue follow-up with cardiology, patient on bisoprolol fumarate 2.5 mg once a day and continue with aspirin (2) Hypertension: Code(s): I10 - Essential (primary) hypertension Category: Medical Plan: Continue with blood pressure medication. Decrease salt intake and exercise patient on bisoprolol (3) CAD (coronary artery disease): Comment: (Hx CABG x 3 - FIELDS to LAD, radial graft to Ramus, free GOYO to RCA - 1998) Code(s): I25.10 - Atherosclerotic heart disease of [place] coronary artery without angina pectoris Category: Medical Plan: Control the cholesterol, weight, blood pressure, diabetes, continue with aspirin (4) Pacemaker: Onset Date: ~2021 Comment: ([facility] [employer] DCPP - placed 06/18/22) Code(s): Z95.0 - Presence of cardiac pacemaker Category: Medical Plan: Continue to follow-up for device check under cardiology (5) Hypercholesterolemia: Code(s): E78.00 - Pure hypercholesterolemia, unspecified Category: Medical Plan: Avoid fried foods, chicken skin, eggs, butter margarine, pastries and meat. Be it pork or beef they have a lot of cholesterol LDL goal of less than 70 and triglyceride of less than 150 on Zetia and rosuvastatin 40 mg once a day (6) Type 2 diabetes mellitus with hyperglycemia: Comment: Dr. Johnston Code(s): E11.65 - Type 2 diabetes mellitus with hyperglycemia Category: Medical Plan: Decrease the amount of carbohydrate intake, pasta, bread, rice and potatoes are all sugar and that is aside from all the sweet stuff, remember that fruits are good but they are Sweet also. Hemoglobin A1c goal of less than 7.0. Plan History of Present Illness The patient is a 80-year-old male presenting for a follow-up on multiple chronic conditions including cardiovascular issues, diabetes management, and vitamin B12 deficiency. The patient has a history of colon cancer with a colectomy performed in 2011. He also has a history of tubular adenoma of the colon, with the last colonoscopy conducted in 2020. The patient has a significant cardiovascular history, including coronary artery disease, supraventricular tachycardia, and ischemic cardiomyopathy. He has a pacemaker due to bradycardia and continues to follow up with cardiology for device checks. Hypertension is managed with bisoprolol fumarate 2.5 mg daily, and the patient is advised to continue aspirin therapy. Hypercholesterolemia is managed with Zetia, and the patient was previously on rosuvastatin, which was discontinued by cardiology. The patient has diabetes mellitus with a recent hemoglobin A1c of 8.0, indicating poor glycemic control. He has expressed concerns about metformin and has not been taking it for the past month due to fears about side effects. He is considering resuming metformin to improve his glycemic control, as advised by the physician. The patient reports a chronic rotator cuff tear in the left shoulder, for which he received steroid injections approximately a month and a half ago. He also experienced a fall on December 09, 2024, resulting in right rib pain, but x-rays arthur wed no fractures. The patient has been advised to use an albuterol inhaler for breathing difficulties, although he has not used it yet. Pulmonary function tests were recommended but have not been completed. Recent blood work from April 23 reveals normal blood count, stable renal function with a creatinine of 1.07, and an LDL cholesterol level of 71. However, vitamin B12 levels are very low at 158, and supplementation has been recommended. Health Maintenance - Colonoscopy last performed in 2020 for colon cancer surveillance - Advised to use albuterol inhaler for breathing difficulties - Pulmonary function tests recommended but not completed - Vitamin B12 supplementation recommended due to deficiency Social History Review of Systems - Respiratory: Denies use of albuterol inhaler, reports breathing difficulties - Musculoskeletal: Reports chronic left shoulder pain due to rotator cuff tear, denies fractures after fall - Cardiovascular: Denies use of nitroglycerin, reports stable cardiovascular status with pacemaker Physical Exam Results - Labs: Normal blood count, stable renal function with creatinine 1.07, blood sugar 122, hemoglobin A1c 8.0, LDL cholesterol 71, vitamin B12 158 - Imaging: X-rays post-fall showed no fractures Plan Patient was informed and verbally consented to the use of an ambient scribe for clinic note documentation during this visit. 1. Diabetes Mellitus The patient has diabetes mellitus with a hemoglobin A1c of 8.0, indicating suboptimal glycemic control. He has not been taking metformin due to concerns about side effects but is considering resuming it to improve glycemic control. The goal is to achieve a hemoglobin A1c of less than 7.0, and the patient is advised to monitor blood glucose levels regularly. 2. Coronary Artery Disease The patient has a history of coronary artery disease and is managed with bisoprolol fumarate and aspirin therapy. He continues to follow up with cardiology for device checks and is advised to maintain an LDL cholesterol level below 70. 3. Vitamin B12 Deficiency The patient has a vitamin B12 deficiency with a level of 158, which is below the desired level of 300. Vitamin B12 supplementation has been recommended to address this deficiency. 4. Chronic Rotator Cuff Tear The patient reports a chronic rotator cuff tear in the left shoulder, for which he received steroid injections. He experienced a fall resulting in right rib pain, but x-rays showed no fractures. Discussion Notes During the visit, I discussed the importance of managing diabetes mellitus with the patient, emphasizing the need to resume metformin to achieve better glycemic control. We reviewed the patient's cardiovascular health, including the need to maintain an LDL cholesterol level below 70 and the continuation of bisoprolol and aspirin therapy. I also recommended vitamin B12 supplementation due to the patient's deficiency and advised on the use of an albuterol inhaler for breathing difficulties. We discussed the patient's chronic rotator cuff tear and the recent fall, ensuring that no fractures were present. Follow-up with cardiology for device checks and further evaluation of cholesterol management was advised. Patient Instructions - Resume metformin as advised to improve blood sugar control. - Continue taking bisoprolol and aspirin as prescribed. - Use albuterol inhaler if experiencing breathing difficulties. - Take vitamin B12 supplements daily as recommended. - Follow up with cardiology for device checks and cholesterol management. 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
--- OUTSIDE RECORDS SUMMARY | 2025-04-25 09:46 | XMS_ITS | Patient Health Record ---
Author Organization Ivan Llanes III, MD Address [address] [address] Care Team Providers Care Chief Ii Dispatcher Name Role Phone ISMAEL RIDER Primary Care Provider Ivan Llanes Unavailable [phone] Allergies Allergen (clinical drug ingredient) Drug/Non Drug [...] Problem Status W/U Status Risk Notes Problem 819415821 Obesity (E66.9) Active confirmed He has lost 3 pounds. We discussed diet and nutrition today. We reviewed his weight loss strategy. We made a plan to lose weight at a rate of one half of a pound per week. Problem 071504359 BPH (benign prostatic hyperplasia) (N40.0) Active confirmed He is taking 3 medications arises from sleep 4 times a night. He will follow up with primary care and urology. Problem 713131861 Osteoarthritis of multiple joints, unspecified osteoarthritis type (M15.9) Active confirmed He has mild symptoms arthritis in his knees. He is taking ibuprofen with good relief. Problem 862640646 Erythrocytosis (D75.1) Active confirmed Numerous recent CBC determinations show his hematocrit to be normal. Problem 106492728 Coronary artery disease involving [place] coronary artery without angina pectoris, unspecified whether [place] or transplanted heart (I25.10) Active confirmed Since his las t visit he has had no episodes of angina with exertion or at rest. There is no need to change his regimen at this time. Problem 514065114 Malignant neoplasm of colon, unspecified part of colon (C18.9) Active confirmed There is no sign of disease recurrence or of a new primary tumor. He will continue with surveillance and periodic colonoscopies.He will return to this office on an as-needed basis. Problem 621655968 Hyperlipidemia type II (E78.01) Active confirmed His [...] Provider Diagnosis Ivan Llanes III, MD [address] [place] [address] [place] [address] 04/15/2025 Ivan Llanes Malignant neoplasm o f colon, unspecified part of colon C18.9 ; BPH (benign prostatic hyperplasia) N40.0 ; Osteoarthritis of multiple joints, unspecified osteoarthritis type M15.9 and Coronary artery disease involving [place] coronary artery without angina pectoris, unspecified whether [place] or transplanted heart I25.10 Assessments Encounter Date [...] good relief. 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
--- OUTSIDE RECORDS SUMMARY | 2025-04-25 09:47 | XMS_ITS | Patient Health Record ---
Author Organization [facility] Address [address] [place] [address] Care Team Providers Care Logistics Team Lead Name Role Phone Steph MARK, Mckinley Primary Care Provider Ivan Powell Unavailable [phone] Allergies Allergen (clinical drug ingredient) Drug/Non Drug [...] Status Risk Notes Problem Digestive system symptom (941520260) Other symptoms involving digestive system (787.99) Active confirmed Problem Right lower quadrant pain (303481475) Abdominal pain, right lower quadrant (789.03) Active confirmed Problem Left lower quadrant pain (484017048) Abdominal pain, left lower quadrant (789.04) Active confirmed Problem Epigastric pain (27824251) Abdominal pain, epigastric (789.06) Active confirmed Problem Abnormal findings diagnostic imaging of liver and biliary tract (872540605) Nonspecific abnormal findings on radiological and other examination of biliary tract (793.3) Active confirmed Problem Family history of malignant neoplasm of gastrointestinal tract (997254415) Family history of malignant neoplasm of gastrointestinal tract (V16.0) Active confirmed Plan Of Treatment Pending Test Test Name Order Date ENDOMYSIAL IGA 07/22/2011 TRANSGLUTAMINASE AB IGA 07/22/2011 TRANSGLUTAMINASE AB IGG 07/22/2011 Future Test Test Name Order Date COLONOSCOPY 07/22/2011 Insurance Providers Payer Name Payer Address Payer Phone Subscriber Number Group Number Insured Name Patient Relationship to Insured Coverage Start Date Coverage End Date [facility] [employer] CLAIM[employer] [address] [place] [address] [id number] ROXY CARRASCO Self - patient is [...]
--- OUTSIDE RECORDS SUMMARY | 2025-04-25 09:47 | XMS_ITS | Clinical Summary ---
Author Organization [facility] Address [address] [address] Phone Care Team Providers Care Weekend Anchor Name Role Phone Mckinley Choi MD Primary Care Provider [phone] Allergies Active Allergy Reactions Criticality Noted Date Comments Amoxicillin Anaphylaxis,Hives,[facility] 12/09/2017 facial Beta-Blockers (Beta-Adrenergic Blocking Agts) Anxiety Low 10/21/2017 Clindamycin Hcl Anaphylaxis,Hives,[facility] 12/09/2017 Swelling for the lips Levofloxacin Anaphylaxis,Hives,[facility] 12/09/2017 Swelling of the lips Medications ezetimibe [...] recently seen in the emergency room at [facility] for symptomatic PSVT with HR 180's. [...] hyperplasia 07/06/2017 Coronary artery disease invo lving [place] coronary artery of [place] heart without angina pectoris 07/06/2017 Overview (12/09/2017): [...] PM EST): He was recently admitted to [facility] this past June with an episode of [...] PM EST): Normal LFTs on his admission [facility] in June --He will continue his current [...] file Insurance MEDICARE PART A & B [employer] MEDEX SUPPLEMENT MEDICARE PART A & B [employer] MEDEX SUPPLEMENT MEDICARE PART A & B [employer] MEDEX SUPPLEMENT [place] MEDICARE PART A & B [employer] MEDEX SUPPLEMENT MEDICARE PART A & B [facility] MEDEX SUPPLEMENT MEDICARE PART A & B [employer] MEDEX SUPPLEMENT MEDICARE PART A & B [employer] MEDEX SUPPLEMENT MEDICARE PART A & B [employer] CROSS MEDEX SUPPLEMENT MEDICARE PART A & B [employer] CROSS MEDEX SUPPLEMENT Care Teams Weekend Anchor Relationship Specialty Start Date End Date Mckinley Choi MD NPI: [id number] [place] [address] [place] [address] PCP - General Internal Medicine 01/09/18 Additional Source Comments The information contained in this document represents components of the legal health record. It is not the complete legal health record.[facility]
--- OUTSIDE RECORDS SUMMARY | 2025-04-25 09:47 | XMS_ITS | Encounter Summary ---
Author Organization [facility] Address [address] [place] [address] Phone Care Team Providers Care Weight Control Engineer Name Role Phone Mckinley Choi MD Primary Care Provider [phone] Christie Floyd MD Primary Care Provider [phone] Mckinley Choi MD Primary Care Provider [phone] Reason for Referral * MRI/CAT Scan - Closed Specialty Diagnoses / Procedures Referred By Bari nicole Referred To Contact Radiology Diagnoses Atherosclerosis of [place] coronary artery of [place] heart without angina pectoris Procedures NC Myocardial Perfusion Stress Single NC Myocardial Perfusion Exercise Multiple Wandy Bridges NP Phone: tel: mailto: Referral ID Status Reason Start Date Expiration Date Visits Re quested Visits Authorized [id number] Closed 10/21/2017 10/21/2018 1 1 Encounter Details Date Type Department Care Team (Latest Contact Info) Description 11/02/2017 Ancillary Orders [facility] [address], [address] [place] [address] Wandy Bridges NP [address] [place] [address] [email or web address] Atherosclerosis of [place] coronary artery of [place] heart without angina pectoris Social History Tobacco [...] EKG reviewed with Dr. Case. Wandy Bridges [address]NA[address] . Stress Function Comments Post-stress ejection fraction [...] this encounter Visit Diagnoses Diagnosis Atherosclerosis of [place] coronary artery of [place] heart without angina pectoris Atherosclerosis of [place] coronary artery of [place] heart without angina pectoris documented in this encounter Care Teams Weight Control Engineer Relationship Specialty Start Date End Date Mckinley Choi MD [address] [place] [address] Dr Mary [address] [place] [id number] PCP - General 05/26/17 12/08/17 Christie Floyd MD [address] [place] [address] [address] [place] [id number] PCP - General Internal Medicine 12/09/17 01/08/18 Mckinley Choi MD [address] [place] [address] Dr Mary [address] [place] [id number] PCP - General Internal Medicine 01/09/18 documented as of this encounter Additional Source Comments The information contained in this document represents components of the legal health record. It is not the complete legal health record.[facility]
== END 2025-04-25 12:31 | disposition home or self-care (01) ==
LOC: HO.HMCH 08:33
PROVIDERS: PCP Internal Medicine; Visit Provider Internal Medicine
DX: I25.5 Ischemic cardiomyopathy (principal); E11.65 Type 2 diabetes mellitus with hyperglycemia; I10 Essential (primary) hypertension; I25.10 Atherosclerotic heart disease of native coronary artery without angina pectoris; Z95.0 Presence of cardiac pacemaker; E78.00 Pure hypercholesterolemia, unspecified

== ENCOUNTER → 2025-04-25 08:33 | Outpatient (BNVA) | payer MEDICARE, SELFPAY ==
[2023-03-31 07:35] VITALS: BP 100/58; BP 126/68
[2023-07-20 15:41] VITALS: BP 90/50; BMI 30.9
== END ==
PROVIDERS: PCP Internal Medicine; Visit Provider Internal Medicine
DX: I10 Essential (primary) hypertension (principal); I25.10 Atherosclerotic heart disease of native coronary artery without angina pectoris; I25.5 Ischemic cardiomyopathy; E78.00 Pure hypercholesterolemia, unspecified; E11.65 Type 2 diabetes mellitus with hyperglycemia; M75.102 Unspecified rotator cuff tear or rupture of left shoulder, not specified as traumatic; E53.8 Deficiency of other specified B group vitamins; Z95.0 Presence of cardiac pacemaker; Z79.899 Other long term (current) drug therapy
CPT/HCPCS: 99212

== ENCOUNTER 2025-05-01 08:56 | Outpatient (REF) | payer MEDICARE, SELFPAY ==
[2023-03-31 07:35] VITALS: BP 100/58; BP 126/68
[2023-07-20 15:41] VITALS: BP 90/50; BMI 30.9
--- OUTSIDE RECORDS SUMMARY | 2024-04-06 07:00 | XMS_ITS ---
Author Organization Ivan Llanes III, MD Address [address] [place] [address] Care Team Providers Care Forensic Artist Name Role Phone ISMAEL RIDER Primary Care [...] Date Provider Diagnosis Ivan Llanes III, MD [address] [place] [address] [address] JAEGER BALJINDER, [place] [id number] 04/06/2024 Ivan Llanes Malignant neoplasm o f colon, unspecified part of colon C18.9 ; BPH (benign prostatic hyperplasia) N40.0 ; Osteoarthritis of multiple joints, unspecified osteoarthritis type M15.9 ; Coronary artery disease involving [place] coronary artery without angina pectoris, unspecified whether [place] or transplanted heart I25.10 and Obesity E66.9 [...] good relief. 04/06/2024 Coronary artery disease involving [place] coronary artery without angina pectoris, unspecified whether [place] or transplanted heart (ICD-10 - I25.10) Since [...] * Kathi CARRASCO: 7 (79 yo M)Acc No.[id number]:04/06/2024 Progress Notes Patient: Kartik Crespo Provider: Elizabeth Llanes MD :1945 A ge:79 Y S ex:Male Date:04/06/2024 Address: [address], 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 He was born [place], [place]. * Medications: T akingNitroglycerin 0.4 MG [...] 4 . C oronary artery disease involving [place] coronary artery without angina pectoris, unspecified whether [place] or transplanted heart - I25.10, Since his [...] MD Date: 0 04/06/2024 Generated for Printi ng/Faxing/eTransmitting on: 0 05/01/2025 10:31 AM EDT History and Physical Notes * HPI (History of Present Illness) Category Sub-Category Detail Notes COVID-19 Screening Questions Have you had any new onset fever, chills, cough, congestion, sore throat, shortness of breath, muscle aches?: No Have you been exposed to the virus withi n the last 10 days?: No Have you travelled internationally in [facility] last 10 days?: No Have [...]
--- OUTSIDE RECORDS SUMMARY | 2025-04-04 08:30 | XMS_ITS ---
Author Organization Ivan Llanes III, MD Address [address] [place] [address] [place] [address] Care Team Providers Care Scale Mechanic Name Role Phone ISMAEL RIDER Primary Care Provider [phone] Ivan Llanes III Unavailable [phone] REASON FOR VISIT Follow up Encounters Encounter Location Date Provider Diagnosis Ivan Llanes III, MD [address] [place] [address] [place] [address] 04/04/2025 Ivan Llanes Plan Of Treatment No Information Progress Notes * Kartik CARRASCODOB: 7 (80 yo M)Acc No.[id number]:04/04/2025 Progress Notes Patient: Kartik PALACIO Provider: Elizabeth Llanes MD :1945 A ge:80 Y S ex:Male Date:04/04/2025 Address:[address] [id number] Pcp:ISMAEL RIDER Subjective: * Chief Complaints: * [...] 0 04/04/2025 Generated for Printi ng/Faalyseg/eTransmitting on: 05/01/2025 10:31 AM EDT
--- OUTSIDE RECORDS SUMMARY | 2025-04-15 07:00 | XMS_ITS ---
Author Organization Ivan Llanes III, MD Address [address] [place] [place] [address] Care Team Providers Care Eye Dropper Assembler Name Role Phone ISMAEL RIDER Primary Care [...] Provider Diagnosis Ivan Llanes III, MD [address] [place] [address] [place] [address] 04/15/2025 Ivan Llanes Malignant neoplasm o f colon, unspecified part of colon C18.9 ; BPH (benign prostatic hyperplasia) N40.0 ; Osteoarthritis of multiple joints, unspecified osteoarthritis type M15.9 and Coronary artery disease involving [place] coronary artery without angina pectoris, unspecified whether [place] or transplanted heart I25.10 Assessments Encounter Date [...] good relief. 04/15/2025 Coronary artery disease involving [place] coronary artery without angina pectoris, unspecified whether [place] or transplanted heart (ICD-10 - I25.10) Since [...] * Kartik CARRASCODOB: 7 (80 yo M)Acc No.[id number]:04/15/2025 Progress Notes Patient: Kartik PALACIO Provider: Elizabeth Llanes MD :1945 A ge:80 Y S ex:Male Date:04/15/2025 Address: [address], [place], [id number] Pcp:ISMAEL RIDER Subjective: * Chief Complaints: * H istory colon cancerCoronary artery diseaseBenign prostatic hypertrophy * HPI: C OVID-19 Screening: He returns for his last surveillance visit for colon cancer. He feels healthy and well. There have been no cases of malignancy in his immediate family. He continues in alf without complaints. 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 He was born [place], [place]. * Medications: T akingNitroglycerin 0.4 MG [...] 4 . C oronary artery disease involving [place] coronary artery without angina pectoris, unspecified whether [place] or transplanted heart - I25.10 N otes [...] 0 04/15/2025 Generated for Ольгаi keny/Dajuan/eTransmitting on: 05/01/2025 10:31 AM EDT History and Physical [...]
--- NOTE | 2025-05-01 09:05 | PFT_ITS ---
Flows: FEV1: 105 % of predicted at 2.99 L FVC: 101 % of predicted at 3.83 L FEV1/FVC: 78 % Bronchodilator response: Absent Volumes: Total lung capacity: 84 % of predicted at 5.72 L Residual volume: 73 % of predicted at 1.94 L Slow vital capacity: 95 % of predicted at 3.78 L Expiratory reserve volume: 90 % of predicted at 1.06 L Diffusion capacity: Mildly decreased, corrects to normal after adjustment for alveolar ventilation. Impression: No obstructive or restrictive ventilatory defect. No bronchodilator response. Isolated defect in diffusion capacity suggests pulmonary edema. Clinical correlation is advised. MTDD
[2025-05-01 09:38] VITALS: PULSE 60; O2SAT 97
--- OUTSIDE RECORDS SUMMARY | 2025-05-01 10:31 | XMS_ITS | Patient Health Record ---
Author Organization Ivan Llanes III, MD Address [address] [place] [address] Care Team Providers Care Leather Staker Name Role Phone ISMAEL RIDER Primary Care Provider [phone] Ivan Llanes III Unavailable [phone] Allergies Allergen (clinical drug ingredient) Drug/Non Drug [...] Problem Status W/U Status Risk Notes Problem 725723910 Obesity (E66.9) Active confirmed He has lost 3 pounds. We discussed diet and nutrition today. We reviewed his weight loss strategy. We made a plan to lose weight at a rate of one half of a pound per week. Problem 835662327 BPH (benign prostatic hyperplasia) (N40.0) Active confirmed He is taking 3 medications arises from sleep 4 times a night. He will follow up with primary care and urology. Problem 592497726 Osteoarthritis of multiple joints, unspecified osteoarthritis type (M15.9) Active confirmed He has mild symptoms arthritis in his knees. He is taking ibuprofen with good relief. Problem 864282266 Erythrocytosis (D75.1) Active confirmed Numerous recent CBC determinations show his hematocrit to be normal. Problem 323237988 Coronary artery disease involving [place] coronary artery without angina pectoris, unspecified whether [place] or transplanted heart (I25.10) Active confirmed Since his las t visit he has had no episodes of angina with exertion or at rest. There is no need to change his regimen at this time. Problem 926477287 Malignant neoplasm of colon, unspecified part of colon (C18.9) Active confirmed There is no sign of disease recurrence or of a new primary tumor. He will continue with surveillance and periodic colonoscopies.He will return to this office on an as-needed basis. Problem 007514962 Hyperlipidemia type II (E78.01) Active confirmed His [...] Date Provider Diagnosis Ivan Llanes III, MD [address] [place] [address] [place] [address] 04/15/2025 Ivan Llanes Malignant neoplasm o f colon, unspecified part of colon C18.9 ; BPH (benign prostatic hyperplasia) N40.0 ; Osteoarthritis of multiple joints, unspecified osteoarthritis type M15.9 and Coronary artery disease involving upper [place] coronary artery without angina pectoris, unspecified whether [place] or transplanted heart I25.10 Assessments Encounter Date [...] good relief. 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
--- OUTSIDE RECORDS SUMMARY | 2025-05-01 10:32 | XMS_ITS | Encounter Summary ---
Author Organization [facility] Address [address] [place] [address] Phone Care Team Providers Care Electrical Systems Engineer Name Role Phone Mckinley Choi MD Primary Care Provider [phone] Christie Floyd MD Primary Care Provider [phone] Mckinley Choi MD Primary Care Provider [phone] Reason for Referral * MRI/CAT Scan - Closed Specialty Diagnoses / Procedures Referred By Bari nicole Referred To Contact Radiology Diagnoses Atherosclerosis of [place] coronary artery of [place] heart without angina pectoris Procedures NC Myocardial Perfusion Stress Single NC Myocardial Perfusion Exercise Multiple Wandy Bridges NP Phone: tel: [email or web address]:[email or web address] Referral ID Status Reason Start Date Expiration Date Visits Re quested Visits Authorized [id number] Closed 10/21/2017 10/21/2018 1 1 Encounter Details Date Type Department Care Team (Latest Contact Info) Description 11/02/2017 Ancillary Orders [facility] [address], [address] [place] [address] Wandy Bridges NP [address] [place] [address] [email or web address] Atherosclerosis of [place] coronary artery of [place] heart without angina pectoris Social History Tobacco [...] EKG reviewed with Dr. Case. Wandy Bridges CLEANING SPECIALIST . Stress Function Comments Post-stress ejection fraction [...] this encounter Visit Diagnoses Diagnosis Atherosclerosis of [place] coronary artery of [place] heart without angina pectoris Atherosclerosis of [place] coronary artery of [place] heart without angina pectoris documented in this encounter Care Teams Electrical Systems Engineer Relationship Specialty Start Date End Date Mckinley Choi MD [address] [place] [address] Dr Mary [address] [place] [address] PCP - General 05/26/17 12/08/17 Christie Floyd MD [address] [place] [address] [address] [place] [phone] PCP - General Internal Medicine 12/09/17 01/08/18 Mckinley Choi MD [address] [place] [address] Dr Mary [address] [place] [address] PCP - General Internal Medicine 01/09/18 documented as of this encounter Additional Source Comments The information contained in this document represents components of the legal health record. It is not the complete legal health record.[facility]
--- OUTSIDE RECORDS SUMMARY | 2025-05-01 10:32 | XMS_ITS | Clinical Summary ---
Author Organization [facility] Address [address] [address] Phone Care Team Providers Care Mirror Maker Name Role Phone Mckinley Choi MD Primary Care Provider [phone] Allergies Active Allergy Reactions Criticality Noted Date Comments Amoxicillin Anaphylaxis,Hives,[facility] 12/09/2017 facial Beta-Blockers (Beta-Adrenergic Blocking Agts) Anxiety Low 10/21/2017 Clindamycin Hcl Anaphylaxis,Hives,[facility] 12/09/2017 Swelling for the lips Levofloxacin Anaphylaxis,Hives,[facility] 12/09/2017 Swelling of the lips [...] recently seen in the emergency room at [facility] for symptomatic PSVT with HR 180's. [...] hyperplasia 07/06/2017 Coronary artery disease invo lving [place] coronary artery of [place] heart without angina pectoris 07/06/2017 Overview (12/09/2017): [...] PM EST): He was recently admitted to [facility] this past June with an episode [...] PM EST): Normal LFTs on his admission [facility] in June --He will continue his [...] file Insurance MEDICARE PART A & B [employer] SU[employer]LEMENT MEDICARE PART A & B [employer] MED[employer] SUPPLEMENT MEDICARE PART A & B [employer] MEDEX SUPPLEMENT [place] MEDICARE PART A & B [employer] MEDEX SUPPLEMENT MEDICARE PART A & B [facility] MEDEX SUPPLEMENT MEDICARE PART A & B [employer] MEDEX SUPPLEMENT MEDICARE PART A & B [employer] MED[employer] SUPPLEMENT MEDICARE PART A & B [place] [employer] MEDEX SUPPLEMENT MEDICARE PART A & B [place] [employer] MEDEX SUPPLEMENT Care Teams Mirror Maker Relationship Specialty Start Date End Date Mckinley Choi MD NPI: [id number] [place] [address] [place] [address] PCP - General Internal Medicine 01/09/18 Additional Source Comments The information contained in this document represents components of the legal health record. It is not the complete legal health record.[facility]
--- OUTSIDE RECORDS SUMMARY | 2025-05-01 10:32 | XMS_ITS | Patient Health Record ---
Author Organization [facility] Address [address] [place] [address] Care Team Providers Care Double End Tenoner Setter Name Role Phone Steph MARK, Mckinley Primary Care Provider Ivan Powell Unavailable [phone] Allergies Allergen (clinical drug ingredient) Drug/Non Drug [...] Status Risk Notes Problem Digestive system symptom (355568724) Other symptoms involving digestive system (787.99) Active confirmed Problem Right lower quadrant pain (004435746) Abdominal pain, right lower quadrant (789.03) Active confirmed Problem Left lower quadrant pain (973643119) Abdominal pain, left lower quadrant (789.04) Active confirmed Problem Epigastric pain (04679894) Abdominal pain, epigastric (789.06) Active confirmed Problem Abnormal findings diagnostic imaging of liver and biliary tract (685075458) Nonspecific abnormal findings on radiological and other examination of biliary tract (793.3) Active confirmed Problem Family history of malignant neoplasm of gastrointestinal tract (468126931) Family history of malignant neoplasm of gastrointestinal tract (V16.0) Active confirmed Plan Of Treatment Pending Test Test Name Order Date ENDOMYSIAL IGA 07/22/2011 TRANSGLUTAMINASE AB IGA 07/22/2011 TRANSGLUTAMINASE AB IGG 07/22/2011 Future Test Test Name Order Date COLONOSCOPY 07/22/2011 Insurance Providers Payer Name Payer Address Payer Phone Subscriber Number Group Number Insured Name Patient Relationship to Insured Coverage Start Date Coverage End Date [facility] [employer] [address] [place] [address] [id number] ROXY CARRASCO Self - patient is [...]
== END 2025-05-01 08:57 | disposition home or self-care (01) ==
LOC: HO.RESP 08:56
PROVIDERS: PCP Internal Medicine; Visit Provider Nurse Practitioner Family
DX: R06.02 Shortness of breath (principal)
CPT/HCPCS: 94010; 94640; 94727; 94729

== ENCOUNTER → 2025-05-01 09:05 | Outpatient (BNV) | payer MEDICARE, SELFPAY ==
[2023-03-31 07:35] VITALS: BP 100/58; BP 126/68
[2023-07-20 15:41] VITALS: BP 90/50; BMI 30.9
== END ==
PROVIDERS: PCP Internal Medicine; Visit Provider Internal Medicine Pulmonary Disease
DX: R06.2 Wheezing (principal)
CPT/HCPCS: 94060; 94727; 94729

== ENCOUNTER 2025-05-21 12:22 | Outpatient (AMB) | payer MEDICARE, SELFPAY ==
[2023-03-31 07:35] VITALS: BP 100/58; BP 126/68
[2023-07-20 15:41] VITALS: BP 90/50; BMI 30.9
--- OUTSIDE RECORDS SUMMARY | 2024-04-06 07:00 | XMS_ITS ---
Author Organization Ivan Llanes III, MD Address [address] [address] Care Team Providers Care Wholesale And Retail Merchant Name Role Phone ISMAEL RIDER Primary Care [...] Date Provider Diagnosis Ivan Llanes III, MD [address] [place] [address] [address] JAEGER ELDA, [place] [phone] 04/06/2024 Ivan Llanes Malignant neoplasm o f colon, unspecified part of colon C18.9 ; BPH (benign prostatic hyperplasia) N40.0 ; Osteoarthritis of multiple joints, unspecified osteoarthritis type M15.9 ; Coronary artery disease involving [place] coronary artery without angina pectoris, unspecified whether [place] or transplanted heart I25.10 and Obesity E66.9 [...] good relief. 04/06/2024 Coronary artery disease involving [place] coronary artery without angina pectoris, unspecified whether [place] or transplanted heart (ICD-10 - I25.10) Since [...] * Kathi CARRASCO: 7 (79 yo M)Acc No.[id number]:04/06/2024 Progress Notes Patient: Kartik Crespo Provider: Elizabeth Llanes MD :1945 A ge:79 Y S ex:Male Date:04/06/2024 Address: [address], 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 He was born [place], [place]. * Medications: T akingNitroglycerin 0.4 MG [...] 4 . C oronary artery disease involving [place] coronary artery without angina pectoris, unspecified whether [place] or transplanted heart - I25.10, Since his [...] 0 04/06/2024 Generated for Printi ng/Faxing/eTransmitting on: 1 03:04 PM EDT History and Physical Notes * HPI (History of Present Illness) Category Sub-Category Detail Notes COVID-19 Screening Questions Have you had any new onset fever, chills, cough, congestion, sore throat, shortness of breath, muscle aches?: No Have you been exposed to the virus withi n the last 10 days?: No Have you travelled internationally in [facility] last 10 days?: No Have you been [...]
--- OUTSIDE RECORDS SUMMARY | 2025-04-04 08:30 | XMS_ITS ---
Author Organization Ivan Llanes III, MD Address [address] [place] [address] [place] [address] Care Team Providers Care Purchasing Engineer Name Role Phone ISMAEL RIDER Primary Care Provider Dr. Ivan Llanes III Unavailable [phone] REASON FOR VISIT Follow up Encounters Encounter Location Date Provider Diagnosis Ivan Llanes III, MD [address] [place] [address] [place] [address] 04/04/2025 Ivan Llanes Plan Of Treatment No Information Progress Notes * Kartik CARRASCODOB: 7 (80 yo M)Acc No.[id number]:04/04/2025 Progress Notes Patient: Kartik PALACIO Provider: Elizabeth Llanes MD :1945 A ge:80 Y S ex:Male Date:04/04/2025 Address:[address] [id number] Pcp:ISMAEL RIDER Subjective: * Chief Complaints: * [...] 04/04/2025 Generated for Printi ng/Faalyseg/eTransmitting on: 1 03:05 PM EDT
--- OUTSIDE RECORDS SUMMARY | 2025-04-15 07:00 | XMS_ITS ---
Author Organization Ivan Llanes III, MD Address [address] [place] [address] Care Team Providers Care Hand Box Coverer Name Role Phone ISMAEL RIDER Primary Care [...] Provider Diagnosis Ivan Llanes III, MD [address] [place] [address] [place] [address] 04/15/2025 Ivan Llanes Malignant neoplasm o f colon, unspecified part of colon C18.9 ; BPH (benign prostatic hyperplasia) N40.0 ; Osteoarthritis of multiple joints, unspecified osteoarthritis type M15.9 and Coronary artery disease involving [place] coronary artery without angina pectoris, unspecified whether [place] or transplanted heart I25.10 Assessments Encounter [...] good relief. 04/15/2025 Coronary artery disease involving [place] coronary artery without angina pectoris, unspecified whether [place] or transplanted heart (ICD-10 - I25.10) [...] * Kartik CARRASCODOB: 7 (80 yo M)Acc No.[id number]:04/15/2025 Progress Notes Patient: Kartik PALACIO Provider: Elizabeth Llanes MD :1945 A ge:80 Y S ex:Male Date:04/15/2025 Address: [address], [place], [id number] Pcp:ISMAEL RIDER Subjective: * Chief Complaints: * H istory colon cancerCoronary artery diseaseBenign prostatic hypertrophy * HPI: C OVID-19 Screening: He returns for his last surveillance visit for colon cancer. He feels healthy and well. There have been no cases of malignancy in his immediate family. He continues in long term without complaints. 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 * Medications: T akingNitroglycerin 0.4 MG [...] 4 . C oronary artery disease involving [place] coronary artery without angina pectoris, unspecified whether [place] or transplanted heart - I25.10 N [...] 0 04/15/2025 Generated for Ольгаi ng/Dajuan/eTransmitting on: 03:04 PM EDT History and Physical Notes [...]
--- NOTE | 2025-05-21 12:33 | A.OFFVIS_ITS ---
Vital Signs 05/21/25 12:34 Height 5 ft 9 in Weight 202 lb 13.204 oz BMI 29.9 BP 122/82 Blood Pressure Location Lt brachial Position Sitting Pulse 60 Intake Visit Reasons: 6 mth f/up w/ st jorje Intake Note: 6 month follow-up with [facility] Apprentice Required: No Allergies BERNABE Inhibitors (BERNABE INHIBITORS) Allergy (Intermediate, Verified 04/25/25 08:38) DEPRESSION latex (LATEX) Allergy (Intermediate, Verified 04/25/25 08:38) RASH terazosin Allergy (Intermediate, Verified 04/25/25 08:38) hives, swollen lips and hoarseness pravastatin (Pravachol) Allergy (Unknown, Verified 04/25/25 08:38) unknown bee pollen (bee stings) Adverse Reaction (Severe, Verified 04/25/25 08:38) Anaphylaxis Beta-Blockers (Beta-Adrenergic Bloc (BETA-BLOCKERS (BETA-ADRENERGIC BLOC) Adverse Reaction (Intermediate, Verified 04/25/25 08:38) DECREASED HR, DEPRESSION amoxicillin Allergy (Intermediate, Uncoded 02/19/25 09:14) hives, swollen lips, and hoarseness cephlex: levofloxacin Allergy (Intermediate, Uncoded 02/19/25 09:14) hives, swollen lips, and hoarseness clindomycin Allergy (Intermediate, Uncoded 02/19/25 09:14) hives, swollen lips, and hoarseness Medication List - Last Reconciled 05/21/25 by Marquise Espinoza MD albuterol sulfate 90 mcg/actuation 2 puffs inhalation Q4-6H PRN aspirin (Adult Low Dose Aspirin) 81 mg PO DAILY bisoprolol fumarate 5 mg PO DAILY blood sugar diagnostic (Interwise Verio test strips) 1 Strip Once a Day blood-glucose meter (WaveMAXuch Verio Meter) to check blood sugars once a day blood-glucose sensor (Linguee G7 Sensor device) As directed blood-glucose,cellar hand,cont (Dexcom G7 Switchboard Inspector) As directed cyanocobalamin (vitamin B-12) 1,000 mcg PO DAILY diphenhydramine HCl (Benadryl Allergy) 25 mg PO TID PRN ezetimibe (Zetia) 10 mg PO DAILY finasteride 5 mg PO DAILY fluticasone propionate 50 mcg/actuation (Flonase Allergy Relief) 1 spray intranasal DAILY lancets (OneTouch Delica Lancets) to check blood sugars once a day mupirocin 2% 1 appl topical TID nitroglycerin 0.4 mg sublingual Q5M PRN rosuvastatin 40 mg PO DAILY HPI Comments Details: Kartik comes for follow-up. He said overall he has been doing well as he has been exercising more and walking more. He is less short of breath. Denies any lightheadedness, syncope. No orthopnea, PND, leg edema. Takes all his medications. No prolonged palpitation irregular heartbeat. Overall he said he is keeping well. He is taking all his medications. [facility] Medical History SOB (shortness of breath) on exertion Acute bacterial sinusitis Impetigo Multiple pulmonary nodules Decreased diffusion capacity Dyspnea Diabetes mellitus with coincident hypertension Bruised ribs Cellulitis of nose Right leg pain Cough Hyperlipidemia associated with type 2 diabetes mellitus Diabetes mellitus Ischemic cardiomyopathy Pacemaker (~2021) Bradycardia (~2021) History of COVID-19 BPH (benign prostatic hyperplasia) Hypertension Obesity Tubular adenoma of colon COVID-19 vaccine administered History of colon cancer (~2010) PVC (premature ventricular contraction) SVT (supraventricular tachycardia) CAD (coronary artery disease) Surgical History S/P cardiac cath History of pacemaker (~2021) History of coronary artery bypass graft x 3 (~1998) History of hernia repair (~2012) History of colonoscopy History of left knee surgery (~2003) History of right knee surgery History of colostomy (~2010) History of partial colectomy (~2011) History of tonsillectomy History of repair of rotator cuff History of cataract surgery (~2013) History of cardiac cath History of colostomy reversal (~2011) Family History Father Cancer, colon Mother Cancer of breast Cancer of lung Sister Cancer Social History Household Members: Spouse Housing: House Are you a primary adult daycare coordinator to a significant other at home: No Do you presently have visiting nurse or other home services: No Alcohol intake: current Alcohol intake frequency: 0-2 drinks per day Comment: 4x a week 2 drinks Patient Tobacco Use Status: Never used Tobacco Tobacco use type: Cigarette e-Cigarette/Vaping Use: Never Used Second Hand Smoke Exposure: No service: No Current occupational status: retired Cognitive needs: No Hearing needs: No Vision needs: Yes (glasses) Review of Systems Const Denies chills, Denies fatigue, Denies fever(s), Denies frequent falls, Denies weakness, Denies weight gain and Denies weight loss ENT Denies dizziness Card Denies chest pain, Denies leg edema, Denies lightheadedness, Denies palpitations, Denies dyspnea, Denies dyspnea on exertion, Denies orthopnea and Denies other (loss of consciousness) Resp Denies cough, Denies dyspnea and Denies dyspnea on exertion GI Denies hematochezia and Denies change in stool character Musc Denies abnormal gait, Denies muscle weakness, Denies numbness, Denies radiating pain into limb and Denies tingling Neuro Denies abnormal gait, Denies dizziness, Denies frequent falls, Denies numbness, Denies tingling and Denies weakness Endo Denies fatigue and Denies palpitations Physical Exam Vital Signs: Last Vital Signs Pulse 60 05/21/25 12:34 BP 122/82 05/21/25 12:34 BMI result Body Mass Index 29.9 Const General: cooperative, healthy appearing, comfortable and no acute distress Orientation/consciousness: patient oriented x3 Neck Neck: Yes normal visual inspection Resp Effort & Inspection: normal respiratory effort Auscultation: clear to auscultation bilaterally, no rales, no rhonchi and no wheezes Cardio Jugular venous distension: no JVD Rate: regular rate Rhythm: regular rhythm Heart sounds: S1 normal heart sound present, S2 normal heart sound present, no murmurs and no rubs Neuro General: patient oriented x3 Extrem General: Yes normal to inspection, No no pedal edema and No calf tenderness Psych Appearance: grossly normal Mental Status: mental status grossly normal Speech and movement: Normal speech and movement present Office Procedures EKG Details: EKGs shows dual-chamber [place] pacemaker in place. Programmed in DDDR at 60 beats per minute. Atrial pacing 89% of the time. One brief episode of atrial fibrillation noted lasting 10 seconds. Atrial and ventricular pacing thresholds are stable with good safety margin. Atrial ventricular sensing is adequate. Pacing lead impedance is stable. Battery life is about 8 years 61137-Pvcuwlnynjdiqtjgf, Complete Assessment & Plan Assessment & Plan (1) CAD (coronary artery disease): Comment: (Hx CABG x 3 - FIELDS to LAD, radial graft to Ramus, free GOYO to RCA - 1998) Code(s): I25.10 - Atherosclerotic heart disease of [place] coronary artery without angina pectoris Category: Medical Plan: CAD with three-vessel coronary artery bypass grafting, all arterial with patent grafts with progressive [place] coronary disease. Currently not having any symptoms suggestive of angina. Currently doing well. Continue current antianginal therapy with bisoprolol. Encouraged to maintain activity level as tolerated. Continue low-dose aspirin therapy for life. Continue high-intensity statin therapy with target goal LDL less than 70 mg/dL. (2) Pacemaker: Onset Date: ~2021 Comment: ([facility] J[facility]je DCPP - placed 06/18/22) Code(s): Z95.0 - Presence of cardiac pacemaker Category: Medical Plan: Cardiac pacemaker in-situ for chronotropic incompetence. Clinically doing well without any issues. Pacer telemetry reveals short atrial fibrillation. Not an indication for anticoagulation. Will continue to monitor by pacer telemetry. (3) Ischemic cardiomyopathy: Code(s): I25.5 - Ischemic cardiomyopathy Category: Medical Plan: Ischemic cardiomyopathy with moderate LV systolic dysfunction without signs or symptoms of heart failure. Currently on bisoprolol therapy for neurohormonal modulation. Will add Entresto. Potential side effects were discussed. Follow- up blood pressure check and BMP in 1 week. Signs and symptoms of heart failure were discussed. Rationale for neurohormonal modulation was discussed. Will follow up in the clinic in 6 months time, sooner PRN. Thank you for allowing me to partake in his care Orders: Orders Basic Metabolic Panel 1 Week I25.5 - Ischemic cardiomyopathy CA echo transthoracic complete 6 Months I25.5 - Ischemic cardiomyopathy Medications: New sacubitril-valsartan 24-26 mg (Entresto) 1 tab PO BID 60 tabs 5RF Changed From bisoprolol fumarate 2.5 mg (1/2 x 5 mg) PO DAILY 45 tabs 3RF To bisoprolol fumarate 5 mg PO DAILY Coding Level of Care Code Est Pt Level 4 (88303) Complex EM visit Add On G2211 Diagnoses CAD (coronary artery disease) I25.10 Pacemaker Z95.0 Ischemic cardiomyopathy I25.5 CPT Codes EKG - CPT: 04405-[id number], Complete ([id number])
[2025-05-21 12:34] VITALS: BP 122/82; PULSE 60; BMI 29.9
--- OUTSIDE RECORDS SUMMARY | 2025-05-21 15:05 | XMS_ITS | Encounter Summary ---
Author Organization [facility] Address [address] [place] [address] Phone Care Team Providers Care Document Scanner Name Role Phone Mckinley Choi MD Primary Care Provider [phone] Christie Floyd MD Primary Care Provider [phone] Mckinley Choi MD Primary Care Provider [phone] Reason for Referral * MRI/CAT Scan - Closed Specialty Diagnoses / Procedures Referred By Bari nicole Referred To Contact Radiology Diagnoses Atherosclerosis of viejas coronary artery of viejas heart without angina pectoris Procedures NC Myocardial Perfusion Stress Single NC Myocardial Perfusion Exercise Multiple Wandy Bridges NP Phone: tel: mailto:[email or web address] Referral ID Status Reason Start Date Expiration Date Visits Re quested Visits Authorized [id number] Closed 10/21/2017 10/21/2018 1 1 Encounter Details Date Type Department Care Team (Latest Contact Info) Description 11/02/2017 Ancillary Orders [facility] [address], [address] [place] [address] Wandy Bridges NP [address] [place] [address] [email or web address] Atherosclerosis of viejas coronary artery of viejas heart without angina pectoris Social History Tobacco [...] EKG reviewed with Dr. Case. Wandy Bridges INVESTMENT BROKER . Stress Function Comments Post-stress ejection fraction [...] this encounter Visit Diagnoses Diagnosis Atherosclerosis of viejas coronary artery of viejas heart without angina pectoris Atherosclerosis of viejas coronary artery of viejas heart without angina pectoris documented in this encounter Care Teams Document Scanner Relationship Specialty Start Date End Date Mckinley Choi MD [address] [place] [address] Dr Mary [address] [place] [phone] PCP - General 05/26/17 12/08/17 Christie Floyd MD [address] [place] [address] [address] [place] [phone] PCP - General Internal Medicine 12/09/17 01/08/18 Mckinley Choi MD [address] [place] [address] Dr Mary [address] [place] [address] PCP - General Internal Medicine 01/09/18 documented as of this encounter Additional Source Comments The information contained in this document represents components of the legal health record. It is not the complete legal health record.[facility]
--- OUTSIDE RECORDS SUMMARY | 2025-05-21 15:05 | XMS_ITS | Patient Health Record ---
Author Organization Ivan Llanes III, MD Address [address] [place] [address] Care Team Providers Care Aircraft Load Controller Name Role Phone ISMAEL RIDER Primary Care Provider [phone] Ivan Llanes III Unavailable [phone] Allergies Allergen (clinical drug ingredient) Drug/Non Drug [...] Problem Status W/U Status Risk Notes Problem 814247258 Obesity (E66.9) Active confirmed He has lost 3 pounds. We discussed diet and nutrition today. We reviewed his weight loss strategy. We made a plan to lose weight at a rate of one half of a pound per week. Problem 596104710 BPH (benign prostatic hyperplasia) (N40.0) Active confirmed He is taking 3 medications arises from sleep 4 times a night. He will follow up with primary care and urology. Problem 803299401 Osteoarthritis of multiple joints, unspecified osteoarthritis type (M15.9) Active confirmed He has mild symptoms arthritis in his knees. He is taking ibuprofen with good relief. Problem 251206990 Erythrocytosis (D75.1) Active confirmed Numerous recent CBC determinations show his hematocrit to be normal. Problem 140218405 Coronary artery disease involving [place] coronary artery without angina pectoris, unspecified whether [place] or transplanted heart (I25.10) Active confirmed Since his las t visit he has had no episodes of angina with exertion or at rest. There is no need to change his regimen at this time. Problem 700896450 Malignant neoplasm of colon, unspecified part of colon (C18.9) Active confirmed There is no sign of disease recurrence or of a new primary tumor. He will continue with surveillance and periodic colonoscopies.He will return to this office on an as-needed basis. Problem 275508430 Hyperlipidemia type II (E78.01) Active confirmed His [...] Date Provider Diagnosis Ivan Llanes III, MD [address] [place] [address] [place] [address] 04/15/2025 Ivan Llanes Malignant neoplasm o f colon, unspecified part of colon C18.9 ; BPH (benign prostatic hyperplasia) N40.0 ; Osteoarthritis of multiple joints, unspecified osteoarthritis type M15.9 and Coronary artery disease involving [place] coronary artery without angina pectoris, unspecified whether [place] or transplanted heart I25.10 Assessments Encounter Date [...] good relief. 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
--- OUTSIDE RECORDS SUMMARY | 2025-05-21 15:05 | XMS_ITS | Patient Health Record ---
Author Organization [facility] Address [address] [place] [address] Care Team Providers Care Management Trainee Marketing Name Role Phone Steph MARK, Mckinley Primary Care Provider Ivan Powell Unavailable [phone] Allergies Allergen (clinical drug ingredient) Drug/Non Drug [...] Active Flagyl 500 MG 1 tablet Orally BID; Duration: 05 days 07/22/2011 08/08/2024 Active MoviPrep 100 GM as directed Orally 07/22/201108/2024 Active Problems Problem Type SNOMED Code ICD Code Onset Dates Problem Status W/U Status Risk Notes Problem Digestive system symptom (762372038) Other symptoms involving digestive system (787.99) Active confirmed Problem Right lower quadrant pain (873060903) Abdominal pain, right lower quadrant (789.03) Active confirmed Problem Left lower quadrant pain (441979848) Abdominal pain, left lower quadrant (789.04) Active confirmed Problem Epigastric pain (91945347) Abdominal pain, epigastric (789.06) Active confirmed Problem Abnormal findings diagnostic imaging of liver and biliary tract (162153537) Nonspecific abnormal findings on radiological and other examination of biliary tract (793.3) Active confirmed Problem Family history of malignant neoplasm of gastrointestinal tract (972996045) Family history of malignant neoplasm of gastrointestinal tract (V16.0) Active confirmed Plan Of Treatment Pending Test Test Name Order Date ENDOMYSIAL IGA 07/22/2011 TRANSGLUTAMINASE AB IGA 07/22/2011 TRANSGLUTAMINASE AB IGG 07/22/2011 Future Test Test Name Order Date COLONOSCOPY 07/22/2011 Insurance Providers Payer Name Payer Address Payer Phone Subscriber Number Group Number Insured Name Patient Relationship to Insured Coverage Start Date Coverage End Date [facility] PROFESSIONAL CLAIMS [address] [place] [address] [id number] ROXY CARRASCO Self - patient is [...]
--- OUTSIDE RECORDS SUMMARY | 2025-05-21 15:05 | XMS_ITS | Clinical Summary ---
Author Organization [facility] Address [address] [address] Phone Care Team Providers Care Ballistics Tester Name Role Phone Mckinley Choi MD Primary Care Provider [phone] Allergies Active Allergy Reactions Criticality Noted Date Comments Amoxicillin Anaphylaxis,Hives,[facility] 12/09/2017 facial Beta-Blockers (Beta-Adrenergic Blocking Agts) Anxiety Low 10/21/2017 Clindamycin Hcl Anaphylaxis,Hives,[facility] 12/09/2017 Swelling for the lips Levofloxacin Anaphylaxis,Hives,[facility] 12/09/2017 Swelling of the lips [...] recently seen in the emergency room at [facility] [place] for symptomatic PSVT with HR 180's. He [...] hyperplasia 07/06/2017 Coronary artery disease invo lving [place] coronary artery of [place] heart without angina pectoris 07/06/2017 Overview (12/09/2017): [...] PM EST): He was recently admitted to [facility] this past June with an episode of [...] PM EST): Normal LFTs on his admission [facility] in June --He will continue his current [...] file Insurance MEDICARE PART A & B [email or web address] MEDEX SUPPLEMENT MEDICARE PART A & B [email or web address] MEDEX SUPPLEMENT MEDICARE PART A & B [email or web address] MEDEX SUPPLEMENT [place] MEDICARE PART A & B [email or web address] MEDEX SUPPLEMENT MEDICARE PART A & B Member Subscriber Plan / Payer ( fective 2011-Present) Name:Roxy Carrasco Member ID:[id number] Relation to Subscriber:Self Name:Roxy Carrasco Subscriber ID:[id number] Payer ID:[id number] Group ID:Not on file Type:Medicare Address: [employer] [facility] [address] [place] [phone] [facility] MEDEX SUPPLEMENT MEDICARE PART A & B [email or web address] MEDEX SUPPLEMENT MEDICARE PART A & B [email or web address] MEDEX SUPPLEMENT MEDICARE PART A & B [employer] MEDEX SUPPLEMENT MEDICARE PART A & B [employer] MEDEX SUPPLEMENT Care Teams Ballistics Tester Relationship Specialty Start Date End Date Mckinley Choi MD NPI: [id number] [place] [address] [place] [address] PCP - General Internal Medicine 01/09/18 Additional Source Comments The information contained in this document represents components of the legal health record. It is not the complete legal health record.[facility]
== END 2025-05-21 12:54 | disposition home or self-care (01) ==
LOC: HO.HCS 12:23
PROVIDERS: PCP Internal Medicine; Visit Provider Internal Medicine Cardiovascular Disease
DX: I25.10 Atherosclerotic heart disease of native coronary artery without angina pectoris (principal); Z95.0 Presence of cardiac pacemaker; I25.5 Ischemic cardiomyopathy
CPT/HCPCS: 93010; 99214; G2211

== ENCOUNTER → 2025-05-21 12:22 | Outpatient (BNVA) | payer MEDICARE, SELFPAY ==
[2023-03-31 07:35] VITALS: BP 100/58; BP 126/68
[2023-07-20 15:41] VITALS: BP 90/50; BMI 30.9
== END ==
PROVIDERS: PCP Internal Medicine; Visit Provider Internal Medicine Cardiovascular Disease
DX: I25.10 Atherosclerotic heart disease of native coronary artery without angina pectoris (principal); I25.5 Ischemic cardiomyopathy; Z95.0 Presence of cardiac pacemaker
CPT/HCPCS: 93005; 99212

== ENCOUNTER 2025-06-11 09:56 | Outpatient (REF) | payer MEDICARE, SELFPAY ==
[2023-03-31 07:35] VITALS: BP 100/58; BP 126/68
[2023-07-20 15:41] VITALS: BP 90/50; BMI 30.9
--- OUTSIDE RECORDS SUMMARY | 2024-04-06 06:00 | XMS_ITS ---
Author Organization Ivan Llanes III, MD Address [address] [place] [address] Care Team Providers Care College Athletic Director Name Role Phone ISMAEL RIDER Primary Care [...] Date Provider Diagnosis Ivan Llanes III, MD [address] [place] [address] [address] JAEGER ELDA, [place] [address] 04/06/2024 Ivan Llanes Malignant neoplasm o f colon, unspecified part of colon C18.9 ; BPH (benign prostatic hyperplasia) N40.0 ; Osteoarthritis of multiple joints, unspecified osteoarthritis type M15.9 ; Coronary artery disease involving [place] coronary artery without angina pectoris, unspecified whether [place] or transplanted heart I25.10 and Obesity E66.9 [...] good relief. 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 He was born [place], [place]. * Medications: T akingNitroglycerin 0.4 MG [...] Allergies: B eta Adrenergic Blockers: suncopeBee StingTape: mawxell[Allergies Verified] Objective: * Vitals: H t: 69, [...] 4 . C oronary artery disease involving [place] coronary artery without angina pectoris, unspecified whether [place] or transplanted heart - I25.10, Since his [...] 04/06/2024 Generated for Printi ng/Faalyseg/eTransmitting on: 1 08/11/2024 11:26 AM EST History and Physical Notes * HPI (History of Present Illness) Category Sub-Category Detail Notes COVID-19 Screening Questions Have you had any new onset fever, chills, cough, congestion, sore throat, shortness of breath, muscle aches?: No Have you been exposed to the virus withi n the last 10 days?: No Have you travelled internationally in [facility] last 10 days?: No Have you [...]
--- OUTSIDE RECORDS SUMMARY | 2025-04-04 07:30 | XMS_ITS ---
Author Organization Ivan Llanes III, MD Address [address] [place] [address] [place] [address] Care Team Providers Care Lapel Padder Name Role Phone ISMAEL RIDER Primary Care Provider Dr. Ivan Llanes III Unavailable REASON FOR VISIT Follow up Encounters Encounter Location Date Provider Diagnosis Ivan Llanes III, MD [address] [place] [address] [place] [address] 04/04/2025 Ivan Llanes Plan Of Treatment No Information Progress Notes * Kartik CARRASCODOB: 7 (80 yo M)Acc No.[id number]:04/04/2025 Progress Notes Patient: Kartik PALACIO Provider: Elizabeth Llanes MD :1945 A ge:80 Y S ex:Male Date:04/04/2025 Address:[address] [id number] Pcp:ISMAEL RIDER Subjective: * Chief Complaints: * 1 . Follow up. * Medical History: Objective: * Vitals: Assessment: Plan: * Treatment: * Images: * The named appointment provid er may or may not be the originator of this progress note, and it is not deemed complete until electronically signed by the appointment provider. Sign off status: Pending * Provider: Elizabeth Llanes MD Date: 0 04/04/2025 Generated for Printi ng/Faalyseg/eTransmitting on: 1 08/11/2024 11:27 AM EST
--- OUTSIDE RECORDS SUMMARY | 2025-04-15 06:00 | XMS_ITS ---
Author Organization Ivan Llanes III, MD Address [address] [place] [address] Care Team Providers Care Genetic Coordinator Name Role Phone ISMAEL RIDER Primary [...] Date Provider Diagnosis Ivan Llanes III, MD [address] [place] [address] [place] [address] 04/15/2025 Ivan Llanes Malignant neoplasm o f colon, unspecified part of colon C18.9 ; BPH (benign prostatic hyperplasia) N40.0 ; Osteoarthritis of multiple joints, unspecified osteoarthritis type M15.9 and Coronary artery disease involving [place] coronary artery without angina pectoris, unspecified whether [place] or transplanted heart I25.10 Assessments Encounter Date [...] good relief. 04/15/2025 Coronary artery disease involving [place] [...] * Kartik CARRASCODOB: 7 (80 yo M)Acc No.[id number]:04/15/2025 Progress Notes Patient: Kartik PALACIO Provider: Elizabeth Llanes MD :1945 A ge:80 Y S ex:Male Date:04/15/2025 Address: [address], [place], [id number] Pcp:ISMAEL RIDER Subjective: * Chief Complaints: * H istory colon cancerCoronary artery diseaseBenign prostatic hypertrophy * HPI: C OVID-19 Screening: He returns for his last surveillance visit for colon cancer. He feels healthy and well. There have been no cases of malignancy in his immediate family. He continues in custodial without complaints. 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 He was born [place], [place]. * Medications: T akingNitroglycerin 0.4 MG [...] [place] or transplanted heart - I25.10 N otes [...] 0 04/15/2025 Generated for Ольгаi keny/Dajuan/eTransmitting on: 08/11/2024 11:26 AM EST History and Physical [...]
[2025-06-11 10:43] LABS: Anion Gap 11 (12-20); Blood Urea Nitrogen 22 mg/dL (9-16); Calcium 9.0 mg/dL (8.4-10.2); Carbon Dioxide 26 mmol/L (22-29); Chloride 106 mmol/L (96-108); Estimated Glomerular Filt Rate > 60; Potassium 4.4 mmol/L (3.3-5.1); Sodium 139 mmol/L (135-145)
--- OUTSIDE RECORDS SUMMARY | 2025-06-11 11:27 | XMS_ITS | Encounter Summary ---
Author Organization [facility] Address [address] [facility] [address] [place] [address] Phone Care Team Providers Care Wheel Tuner Name Role Phone Mckinley Choi MD Primary Care Provider [phone] Christie Floyd MD Primary Care Provider [phone] Mckinley Choi MD Primary Care Provider [phone] Reason for Referral * MRI/CAT Scan - Closed Specialty Diagnoses / Procedures Referred By Bari nicole Referred To Contact Radiology Diagnoses Atherosclerosis of huslia coronary artery of huslia heart without angina pectoris Procedures NC Myocardial Perfusion Stress Single NC Myocardial Perfusion Exercise Multiple Wandy Bridges NP Phone: tel: [email or web address] Referral ID Status Reason Start Date Expiration Date Visits Re quested Visits Authorized [id number] Closed 10/21/2017 10/21/2018 1 1 Encounter Details Date Type Department Care Team (Latest Contact Info) Description 11/02/2017 Ancillary Orders [facility] [address], [address] [place] [address] Wandy Bridges NP [address] [place] [address] [email or web address] Atherosclerosis of huslia coronary artery of huslia heart without angina pectoris Social History Tobacco [...] EKG reviewed with Dr. Case. Wandy Bridges BUTTON FACING MACHINE OPERATOR . Stress Function Comments Post-stress ejection fraction [...] this encounter Visit Diagnoses Diagnosis Atherosclerosis of huslia coronary artery of huslia heart without angina pectoris Atherosclerosis of huslia coronary artery of huslia heart without angina pectoris documented in this encounter Care Teams Wheel Tuner Relationship Specialty Start Date End Date Mckinley Choi MD [address] [place] [address] Dr Mary [address] [place] [address] PCP - General 05/26/17 12/08/17 Christie Floyd MD [address] [place] [address] [address] [place] [id number] PCP - General Internal Medicine 12/09/17 01/08/18 Mckinley Choi MD [address] [place] [address] Dr Mary [address] [place] [id number] PCP - General Internal Medicine 01/09/18 documented as of this encounter Additional Source Comments The information contained in this document represents components of the legal health record. It is not the complete legal health record.[facility]
--- OUTSIDE RECORDS SUMMARY | 2025-06-11 11:27 | XMS_ITS | Patient Health Record ---
Author Organization Ivan Llanes III, MD Address [address] [place] [address] Care Team Providers Care Car Hostler Name Role Phone ISMAEL RIDER Primary Care Provider [phone] Ivan Llanes III Unavailable [phone] Allergies Allergen (clinical drug ingredient) Drug/Non Drug [...] Problem Status W/U Status Risk Notes Problem 448418549 Obesity (E66.9) Active confirmed He has lost 3 pounds. We discussed diet and nutrition today. We reviewed his weight loss strategy. We made a plan to lose weight at a rate of one half of a pound per week. Problem 035404354 BPH (benign prostatic hyperplasia) (N40.0) Active confirmed He is taking 3 medications arises from sleep 4 times a night. He will follow up with primary care and urology. Problem 033227601 Osteoarthritis of multiple joints, unspecified osteoarthritis type (M15.9) Active confirmed He has mild symptoms arthritis in his knees. He is taking ibuprofen with good relief. Problem 017915608 Erythrocytosis (D75.1) Active confirmed Numerous recent CBC determinations show his hematocrit to be normal. Problem 265289502 Coronary artery disease involving crow coronary artery without angina pectoris, unspecified whether crow or transplanted heart (I25.10) Active confirmed Since his las t visit he has had no episodes of angina with exertion or at rest. There is no need to change his regimen at this time. Problem 336622748 Malignant neoplasm of colon, unspecified part of colon (C18.9) Active confirmed There is no sign of disease recurrence or of a new primary tumor. He will continue with surveillance and periodic colonoscopies.He will return to this office on an as-needed basis. Problem 467452467 Hyperlipidemia type II (E78.01) Active confirmed His [...] Date Provider Diagnosis Ivan Llanes III, MD [address] [place] [address] [place] [address] 04/15/2025 Ivan Llanes Malignant neoplasm o f colon, unspecified part of colon C18.9 ; BPH (benign prostatic hyperplasia) N40.0 ; Osteoarthritis of multiple joints, unspecified osteoarthritis type M15.9 and Coronary artery disease involving crow coronary artery without angina pectoris, unspecified whether crow or transplanted heart I25.10 Assessments Encounter Date [...] good relief. 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
--- OUTSIDE RECORDS SUMMARY | 2025-06-11 11:27 | XMS_ITS | Clinical Summary ---
Author Organization [facility] Address [address] [address] Phone Care Team Providers Care Gis Instructor Name Role Phone Mckinley Choi MD Primary Care Provider [phone] Allergies Active Allergy Reactions Criticality Noted Date [...] recently seen in the emergency room at [facility] for symptomatic PSVT with HR 180's. [...] hyperplasia 07/06/2017 Coronary artery disease invo lving agdaagux coronary artery of agdaag[place] heart without angina pectoris 07/06/2017 Overview (12/09/2017): [...] PM EST): He was recently admitted to [facility] this past June with an episode [...] PM EST): Normal LFTs on his admission [facility] in June --He will continue his [...] file Insurance MEDICARE PART A & B [employer] MED[employer] SUPPLEMENT MEDICARE PART A & B [employer] MED[employer] SUPPLEMENT MEDICARE PART A & B [employer] MEDEX SUPPLEMENT [place], [place] MEDICARE PART A & B [employer] MEDEX SUPPLEMENT MEDICARE PART A & B [facility] MEDEX SUPPLEMENT MEDICARE PART A & B [employer] MEDEX SUPPLEMENT MEDICARE PART A & B [employer] MEDEX SUPPLEMENT MEDICARE PART A & B [employer] SUPPLEMENT MEDICARE PART A & B [employer] MEDEX SUPPLEMENT Care Teams Gis Instructor Relationship Specialty Start Date End Date Mckinley Choi MD NPI: [id number] [place] [address] [place] [address] PCP - General Internal Medicine 01/09/18 Additional Source Comments The information contained in this document represents components of the legal health record. It is not the complete legal health record.[facility]
--- OUTSIDE RECORDS SUMMARY | 2025-06-11 11:27 | XMS_ITS | Patient Health Record ---
Author Organization [facility] Address [address] [place] [address] Care Team Providers Care Metal Sander And Finisher Name Role Phone Steph MARK, Mckinley Primary Care Provider Ivan Powell Unavailable [phone] Allergies Allergen (clinical drug ingredient) Drug/Non Drug [...] Status Risk Notes Problem Digestive system symptom (280275956) Other symptoms involving digestive system (787.99) Active confirmed Problem Right lower quadrant pain (400274330) Abdominal pain, right lower quadrant (789.03) Active confirmed Problem Left lower quadrant pain (255190401) Abdominal pain, left lower quadrant (789.04) Active confirmed Problem Epigastric pain (30621595) Abdominal pain, epigastric (789.06) Active confirmed Problem Abnormal findings diagnostic imaging of liver and biliary tract (569035275) Nonspecific abnormal findings on radiological and other examination of biliary tract (793.3) Active confirmed Problem Family history of malignant neoplasm of gastrointestinal tract (598463342) Family history of malignant neoplasm of gastrointestinal tract (V16.0) Active confirmed Plan Of Treatment Pending Test Test Name Order Date ENDOMYSIAL IGA 07/22/2011 TRANSGLUTAMINASE AB IGA 07/22/2011 TRANSGLUTAMINASE AB IGG 07/22/2011 Future Test Test Name Order Date COLONOSCOPY 07/22/2011 Insurance Providers Payer Name Payer Address Payer Phone Subscriber Number Group Number Insured Name Patient Relationship to Insured Coverage Start Date Coverage End Date [facility] PROFESSIONAL CLAIMS [address] [place] [address] [id number] ROXY CARRASCO Self - patient is [...]
[2025-06-12 05:34] LABS: Lyme Abs Screen <0.90 index
[2025-06-12 20:58] LABS: A. Phagocytphilium DNA,RT-PCR NOT DETECTED (NOT DETECTED); Babesia Microti DNA, RT-PCR NOT DETECTED (NOT DETECTED); Borrelia Miyamotoi,DNA RT-PCR NOT DETECTED (NOT DETECTED); E.Chaffeensis DNA RT-PCR NOT DETECTED (NOT DETECTED); Lyme(Borrelia ssp)DNA RT-PCR NOT DETECTED (NOT DETECTED)
[2025-06-19 06:52] LABS: A. Phagocytophilum Ab IgG <1:64 (<1:64); A. Phagocytophilum Ab IgM <1:20 (<1:20)
== END 2025-06-11 09:57 | disposition home or self-care (01) ==
LOC: HO.LAB 09:56
PROVIDERS: Absent Provider Internal Medicine; PCP Internal Medicine; Visit Provider Internal Medicine Cardiovascular Disease
DX: I25.5 Ischemic cardiomyopathy (principal); S40.261A Insect bite (nonvenomous) of right shoulder, initial encounter; W57.XXXA Bitten or stung by nonvenomous insect and other nonvenomous arthropods, initial encounter; Y93.9 Activity, unspecified; Y92.9 Unspecified place or not applicable; Y99.9 Unspecified external cause status
CPT/HCPCS: 36415; 80048; 86617; 86618; 86666; 86753; 87168; 87468; 87469; 87478; 87484; 87798; 99212

== ENCOUNTER 2025-06-11 10:16 | Outpatient (AMB) | payer MEDICARE, SELFPAY ==
[2023-03-31 07:35] VITALS: BP 100/58; BP 126/68
[2023-07-20 15:41] VITALS: BP 90/50; BMI 30.9
[2025-06-11 10:18] VITALS: BP 130/80; PULSE 35; RESP 18; TEMP 36.2; O2SAT 98; BMI 29.4
--- NOTE | 2025-06-11 10:18 | MHC.PC.OV ---
Vital Signs 06/11/25 10:18 Height 5 ft 9 in Weight 199 lb 2 oz BMI 29.4 BP 130/80 Blood Pressure Location Lt brachial Position Sitting Respiration 18 Pulse 35 L Pulse Source Pulse Oximeter Temp 97.1 F Temp Source Temporal Artery Scan Pulse Oximetry (%) 98 Oxygen Delivery Method Room Air Intake Visit Reasons: Tick bite Early Childhood Teacher Assistant Required: No Accompanied by: Self / Same As Patient Allergies BERNABE Inhibitors (BERNABE INHIBITORS) Allergy (Intermediate, Verified 06/11/25 10:19) DEPRESSION latex (LATEX) Allergy (Intermediate, Verified 06/11/25 10:19) RASH terazosin Allergy (Intermediate, Verified 06/11/25 10:19) hives, swollen lips and hoarseness pravastatin (Pravachol) Allergy (Unknown, Verified 06/11/25 10:19) unknown bee pollen (bee stings) Adverse Reaction (Severe, Verified 06/11/25 10:19) Anaphylaxis Beta-Blockers (Beta-Adrenergic Bloc (BETA-BLOCKERS (BETA-ADRENERGIC BLOC) Adverse Reaction (Intermediate, Verified 06/11/25 10:19) DECREASED HR, DEPRESSION amoxicillin Allergy (Intermediate, Uncoded 02/19/25 09:14) hives, swollen lips, and hoarseness cephlex: levofloxacin Allergy (Intermediate, Uncoded 02/19/25 09:14) hives, swollen lips, and hoarseness clindomycin Allergy (Intermediate, Uncoded 02/19/25 09:14) hives, swollen lips, and hoarseness Medication List - Last Reconciled 06/11/25 by Sepideh Mason MD albuterol sulfate 90 mcg/actuation 2 puffs inhalation Q4-6H PRN aspirin (Adult Low Dose Aspirin) 81 mg PO DAILY bisoprolol fumarate 5 mg PO DAILY blood sugar diagnostic (LDL TechnologyTouch Verio test strips) 1 Strip Once a Day blood-glucose meter (Elepath[employer] Verio Meter) to check blood sugars once a day blood-glucose sensor ([employer] G7 Sensor device) As directed blood-glucose,tilt tray driver,cont ([employer] G7 Clinical Informatics Director) As directed cyanocobalamin (vitamin B-12) 1,000 mcg PO DAILY diphenhydramine HCl (Benadryl Allergy) 25 mg PO TID PRN ezetimibe (Zetia) 10 mg PO DAILY finasteride 5 mg PO DAILY fluticasone propionate 50 mcg/actuation (Flonase Allergy Relief) 1 spray intranasal DAILY lancets (OneTouch Delica Lancets) to check blood sugars once a day mupirocin 2% 1 appl topical TID nitroglycerin 0.4 mg sublingual Q5M PRN rosuvastatin 40 mg PO DAILY sacubitril-valsartan 24-26 mg (Entresto) 1 tab PO BID Tobacco use date assessed: 06/11/25 Fall risk assessment: No Falls in past year Last assessed Fall Risk: 06/11/25 Dental Screening Dental Screen Date: 06/11/25 Did you have a dental visit in the last 12 months?: Yes Did you have a dental problem in the last 6 months where you did not have access to dental care?: No Was dental information given to patient?: Patient has dentist HPI HPI Comments History of Present Illness Details The patient is a 80-year-old male presenting for evaluation of a tick bite. He reports discovering a tick on his shoulder, which he first noticed was sore last or Wednesday 06/06. The tick was attached for approximately four to five days and was removed by his this morning 06/11. The patient denies any joint pain, fevers, or chills. He has a history of an unspecified heart condition and was advised by his to be evaluated. He also has a history of diabetes, for which he takes metformin intermittently due to concerns about side effects he has read about. Recent blood work from his hair preparer, including a CBC, was normal with no elevated white count. His renal panel was also within normal limits. However, his blood sugars were noted to be high, which he attributes to eating ice cream the previous night. The patient brought the tick with him in a container. [facility] Medical History SOB (shortness of breath) on exertion Acute bacterial sinusitis Impetigo Multiple pulmonary nodules Decreased diffusion capacity Dyspnea Diabetes mellitus with coincident hypertension Bruised ribs Cellulitis of nose Right leg pain Cough Hyperlipidemia associated with type 2 diabetes mellitus Diabetes mellitus Ischemic cardiomyopathy Pacemaker (~2021) Bradycardia (~2021) History of COVID-19 BPH (benign prostatic hyperplasia) Hypertension Obesity Tubular adenoma of colon COVID-19 vaccine administered History of colon cancer (~2010) PVC (premature ventricular contraction) SVT (supraventricular tachycardia) CAD (coronary artery disease) Surgical History S/P cardiac cath History of pacemaker (~2021) History of coronary artery bypass graft x 3 (~1998) History of hernia repair (~2012) History of colonoscopy History of left knee surgery (~2003) History of right knee surgery History of colostomy (~2010) History of partial colectomy (~2011) History of tonsillectomy History of repair of rotator cuff History of cataract surgery (~2013) History of cardiac cath History of colostomy reversal (~2011) Family History Father Cancer, colon Mother Cancer of breast Cancer of lung Sister Cancer Social History Household Members: Spouse Housing: House Are you a primary customer care specialist to a significant other at home: No Do you presently have visiting nurse or other home services: No Alcohol intake: current Alcohol intake frequency: 0-2 drinks per day Comment: 4x a week 2 drinks Patient Tobacco Use Status: Never used Tobacco Tobacco use type: Cigarette e-Cigarette/Vaping Use: Never Used Second Hand Smoke Exposure: No service: No Current occupational status: retired Cognitive needs: No Hearing needs: No Vision needs: Yes (glasses) Questionnaire Thrive Questionnaire Date Thrive assessed: 12/18/24 JOE-7 AMB Questionnaire JOE-7 Date JOE - 7 assessed: 08/30/24 Source: Developed by Drs. Ivan Humphrey, Rachel Sigala, Bradley Rojas and colleagues, with an educational henry from [employer]. Review of Systems Const Details: As per HPI. Physical exam (Primary Care) Vital Signs: Last Vital Signs Temp 97.1 F 06/11/25 10:18 Pulse 35 L 06/11/25 10:18 Resp 18 06/11/25 10:18 BP 130/80 06/11/25 10:18 Pulse Ox 98 06/11/25 10:18 Oxygen Delivery Method Room Air 06/11/25 10:18 BMI result Body Mass Index 29.4 Tobacco/Smoking Status: Tobacco use Status Tobacco use date assessed 06/11/25 06/11/25 10:22 Patient Tobacco Use Status Never used Tobacco 06/11/25 10:22 Tobacco use type Cigarette 06/11/25 10:22 e-Cigarette/Vaping Use Never Used 06/11/25 10:22 Thrive Assessment: Date of Thrive Assessment Date Thrive assessed 12/18/24 06/11/25 10:22 Const Other: Pertinent findings are in BOLD GENERAL APPEARANCE NAD, activity normal for age, well developed/ well nourished, no cyanosis, pallor, or diaphoresis. EYES lids/conjunctiva normal. EARS/NOSE/THROAT Mucous membranes moist, nares normal, lips/teeth normal uvula midline without oral pharyngeal erythema, exudate or swelling TMs normal bilaterally. No lymphangitis/lymphedema. HEAD/NECK normocephalic atraumatic, no facial trauma, neck is supple. RESPIRATORY respiratory effort normal, speaks in full sentences, no tripod position, no accessory muscle use. Lungs clear to auscultation without rhonchi, wheezes, rales CARDIAC Regular rate and rhythm, no edema. ABDOMINAL Soft, ND/NT. No evidence of fluid wave. No pulsatile masses on exam, rebound tenderness, Nicole sign or pain over Mcburney's point. MUSCLES/EXTREMITIES No abnormal range of motion, no swelling. SKIN Warm, pink and dry. No rashes, dermatoses, petechiae. Erythematous lesion at tick bite site on right upper back. NEUROLOGICAL Speech is clear and appropriate. Normal level of consciousness. Gait and coordination are normal. 5/5 strength in all extremities. PSYCH Normal mood and affect. Judgement/competence is appropriate Coding Level of Care Code Est Pt Level 3 (28548) Diagnoses Tick bite of right shoulder, initial encounter S40.261A; W57.XXXA Encounter type: initial encounter Site of tick bite: shoulder Laterality: right Assessment & Plan Assessment & Plan (1) Tick bite: Code(s): W57.XXXA - Bitten or stung by nonvenomous insect and other nonvenomous arthropods, initial encounter Category: Medical Qualifiers: Encounter type: initial encounter Site of tick bite: shoulder Laterality: right Qualified Code(s): S40.261A - Insect bite (nonvenomous) of right shoulder, initial encounter; W57.XXXA - Bitten or stung by nonvenomous insect and other nonvenomous arthropods, initial encounter Plan: - The patient presents after a tick was attached to his right upper back for approximately 4-5 days, which is an indication for prophylactic treatment. - Will prescribe doxycycline for two weeks. - Will order blood work to test for antibodies to Lyme disease, anaplasmosis, and babesiosis. - Instructed the patient to take the removed tick to the lab for analysis, though it is uncertain if the lab will perform the test. Plan I discussed with the patient the risks associated with a tick bite that was attached for several days. I explained that we would order blood tests for common tick-borne diseases, specifically Lyme disease, anaplasmosis, and babesiosis, to check for signs of infection. I recommended starting a two-week course of doxycycline as a prophylactic measure, regardless of the test results. I counseled the patient on potential side effects of doxycycline, including esophageal irritation and photosensitivity, and provided instructions to mitigate these risks, such as taking the medication with plenty of water, remaining upright after doses, and avoiding sun exposure. I also advised him to take the removed tick to the laboratory for analysis, while cautioning that they may no longer offer this service. I instructed him to follow up only if his symptoms do not improve. Orders: Orders Malaria Babesia Smear Today W57.XXXA - Bitten or stung by nonvenomous insect and other nonvenomous arthropods, initial encounter Tick-borne Disease Molecular Today W57.XXXA - Bitten or stung by nonvenomous insect and other nonvenomous arthropods, initial encounter Direct Exam Tick/Arthropod Today W57.XXXA - Bitten or stung by nonvenomous insect and other nonvenomous arthropods, initial encounter Ehrlichia Anaplasma Ab Panel Today W57.XXXA - Bitten or stung by nonvenomous insect and other nonvenomous arthropods, initial encounter Lyme IgG/IgM w/reflex to WB Today W57.XXXA - Bitten or stung by nonvenomous insect and other nonvenomous arthropods, initial encounter Babesia IgG/IgM Today W57.XXXA - Bitten or stung by nonvenomous insect and other nonvenomous arthropods, initial encounter Medications: New doxycycline hyclate 100 mg PO BID 28 caps 0RF
== END 2025-06-11 10:51 | disposition home or self-care (01) ==
LOC: HO.HMCH 10:16
PROVIDERS: PCP Internal Medicine; Visit Provider Internal Medicine
DX: S40.261A Insect bite (nonvenomous) of right shoulder, initial encounter (principal); W57.XXXA Bitten or stung by nonvenomous insect and other nonvenomous arthropods, initial encounter

== ENCOUNTER 2025-06-25 11:24 | Outpatient (AMB) | payer MEDICARE, SELFPAY ==
[2023-03-31 07:35] VITALS: BP 100/58; BP 126/68
[2023-07-20 15:41] VITALS: BP 90/50; BMI 30.9
[2025-06-25 11:41] VITALS: BP 112/64; PULSE 72; TEMP 36.2; O2SAT 96; BMI 29.8
--- NOTE | 2025-06-25 11:41 | A.OFFPC_ITS ---
Vital Signs 06/25/25 11:41 Height 5 ft 9 in Weight 202 lb BMI 29.8 BP 112/64 Blood Pressure Location Lt brachial Position Sitting Pulse 72 Pulse Source Pulse Oximeter Temp 97.1 F Temp Source Temporal Artery Scan Pulse Oximetry (%) 96 Oxygen Delivery Method Room Air Intake Visit Reasons: bit by tick lingering issues Allergies BERNABE Inhibitors (BERNABE INHIBITORS) Allergy (Intermediate, Verified 06/25/25 11:44) DEPRESSION latex (LATEX) Allergy (Intermediate, Verified 06/25/25 11:44) RASH terazosin Allergy (Intermediate, Verified 06/25/25 11:44) hives, swollen lips and hoarseness pravastatin (Pravachol) Allergy (Unknown, Verified 06/25/25 11:44) unknown bee pollen (bee stings) Adverse Reaction (Severe, Verified 06/25/25 11:44) Anaphylaxis Beta-Blockers (Beta-Adrenergic Bloc (BETA-BLOCKERS (BETA-ADRENERGIC BLOC) Adverse Reaction (Intermediate, Verified 06/25/25 11:44) DECREASED HR, DEPRESSION amoxicillin Allergy (Intermediate, Uncoded 06/25/25 11:44) hives, swollen lips, and hoarseness cephlex: levofloxacin Allergy (Intermediate, Uncoded 06/25/25 11:44) hives, swollen lips, and hoarseness clindomycin Allergy (Intermediate, Uncoded 06/25/25 11:44) hives, swollen lips, and hoarseness Tobacco use date assessed: 06/25/25 Fall risk assessment: No Falls in past year Last assessed Fall Risk: 06/25/25 Dental Screening Dental Screen Date: 06/25/25 Did you have a dental visit in the last 12 months?: Yes Did you have a dental problem in the last 6 months where you did not have access to dental care?: No Was dental information given to patient?: Patient has dentist HPI HPI Comments History of Present Illness Details The patient is a 80-year-old male presenting for a follow-up visit for a tick bite. The body of the tick was previously removed and sent for analysis, which revealed the head was missing. Subsequently, his removed what appeared to be the head of the tick and the paitent brought it with him to the appointment. The patient completed a course of doxycycline for prophylaxis. During the last couple of days of treatment, he experienced constipation and a sensation of fullness, which he associates with taking the medication without food. He has been applying topical bacitracin ointment to the bite site. Recent blood work for tick-borne diseases was negative. [facility] Medical History SOB (shortness of breath) on exertion Acute bacterial sinusitis Impetigo Multiple pulmonary nodules Decreased diffusion capacity Dyspnea Diabetes mellitus with coincident hypertension Bruised ribs Cellulitis of nose Right leg pain Cough Hyperlipidemia associated with type 2 diabetes mellitus Diabetes mellitus Ischemic cardiomyopathy Pacemaker (~2021) Bradycardia (~2021) History of COVID-19 BPH (benign prostatic hyperplasia) Hypertension Obesity Tubular adenoma of colon COVID-19 vaccine administered History of colon cancer (~2010) PVC (premature ventricular contraction) SVT (supraventricular tachycardia) CAD (coronary artery disease) Surgical History S/P cardiac cath History of pacemaker (~2021) History of coronary artery bypass graft x 3 (~1998) History of hernia repair (~2012) History of colonoscopy History of left knee surgery (~2003) History of right knee surgery History of colostomy (~2010) History of partial colectomy (~2011) History of tonsillectomy History of repair of rotator cuff History of cataract surgery (~2013) History of cardiac cath History of colostomy reversal (~2011) Family History Father Cancer, colon Mother Cancer of breast Cancer of lung Sister Cancer Social History Household Members: Spouse Housing: House Are you a primary care process manager to a significant other at home: No Do you presently have visiting nurse or other home services: No Alcohol intake: current Alcohol intake frequency: 0-2 drinks per day Comment: 4x a week 2 drinks Patient Tobacco Use Status: Never used Tobacco Tobacco use type: Cigarette e-Cigarette/Vaping Use: Never Used Second Hand Smoke Exposure: No service: No Current occupational status: retired Cognitive needs: No Hearing needs: No Vision needs: Yes (glasses) Questionnaire PHQ-9 Over the last 2 weeks, how often have you been bothered by any of the following problems? 1. Little interest or pleasure in doing things: not at all 2. Feeling down, depressed, or hopeless: not at all 3. Trouble falling or staying asleep, or sleeping too much: not at all 4. Feeling tired or having little energy: several days 5. Poor appetite or overeating: not at all 6. Feeling bad about yourself - or that you are a failure or have let yourself or your family down: not at all 7. Trouble concentrating on things, such as reading the newspaper or watching television: not at all 8. Moving or speaking so slowly that other people could have noticed. Or the opposite - being so fidgety or restless that you have been moving around a lot more than usual: not at all 9. Thoughts that you would be better off or of hurting yourself in some way: not at all Total score: 1 Source: Developed by Drs. Ivan Humphrey, Rachel Sigala, Bradley Rojas and colleagues, with an educational henry from [employer]. Thrive Questionnaire Date Thrive assessed: 12/18/24 I am a: Patient What is your living situation today?: I have a steady place to live Within the past 12 months, did the food you bought not last and you didn't have the money to get more?: Never true Within the past 12 months, did you worry whether your food would run out before you got money to buy more?: Never true Do you have trouble paying for medicines?: No Do you have trouble getting transportation to medical appointments?: No Do you have trouble paying your heating and electricity bill?: I choose not to answer this question Do you have trouble taking care of your child, family member or friend?: I choose not to answer this question Do you have trouble with day-to-day activities such as bathing, preparing meals, shopping, managing finances, etc.?: I choose not to answer this question Are you currently unemployed and looking for a job?: No Are you interested in more education?: No Please select the resources that you would like help with: None Currently or been in a relationship where the following occur: No concerns reported THRIVE Score: 0 AUDIT C Alcohol Use Questionnaire (AUDIT-C) 1. How often do you have a drink containing alcohol?: 2-3 times a week 2. How many drinks containing alcohol do you have on a typical day when you are drinking?: 1 or 2 3. How often do you have six or more drinks on one occasion?: Never Total Score: 3 JOE-7 AMB Questionnaire JOE-7 Date JOE - 7 assessed: 08/30/24 Feeling nervous, anxious, or on edge: 0 = Not at all Not being able to stop or control worryin = Not at all Worrying too much about different things: 0 = Not at all Trouble relaxin = Not at all Being so restless that it is hard to sit still: 0 = Not at all Becoming easily annoyed or irritable: 0 = Not at all Feeling afraid as if something awful might happen: 0 = Not at all Total JOE-7 score (0-4 normal; 5-9 mild; 10-14 moderate; 15-21 severe): 0 Source: Developed by Drs. Ivan Humphrey, Rachel Sigala, Bradley Rojas and colleagues, with an educational henry from [employer]. Review of Systems Const Details: As per HPI. Physical exam (Primary Care) Vital Signs: Last Vital Signs Temp 97.1 F 06/25/25 11:41 Pulse 72 06/25/25 11:41 BP 112/64 06/25/25 11:41 Pulse Ox 96 06/25/25 11:41 Oxygen Delivery Method Room Air 06/25/25 11:41 BMI result Body Mass Index 29.8 Tobacco/Smoking Status: Tobacco use Status Tobacco use date assessed 06/25/25 06/25/25 11:46 Patient Tobacco Use Status Never used Tobacco 06/25/25 11:46 Tobacco use type Cigarette 06/25/25 11:46 e-Cigarette/Vaping Use Never Used 06/25/25 11:46 PHQ-9: PHQ-9 Score PHQ-9: Total score 1 06/25/25 11:46 Thrive Assessment: Date of Thrive Assessment Date Thrive assessed 12/18/24 06/25/25 11:46 Currently or been in a relationship where the following occur: No concerns reported Const Other: Pertinent findings are in BOLD GENERAL APPEARANCE NAD, activity normal for age, well developed/ well nourished, no cyanosis, pallor, or diaphoresis. EYES lids/conjunctiva normal. EARS/NOSE/THROAT Mucous membranes moist, nares normal, lips/teeth normal uvula midline without oral pharyngeal erythema, exudate or swelling TMs normal bilaterally. No lymphangitis/lymphedema. HEAD/NECK normocephalic atraumatic, no facial trauma, neck is supple. RESPIRATORY respiratory effort normal, speaks in full sentences, no tripod position, no accessory muscle use. Lungs clear to auscultation without rhonchi, wheezes, rales CARDIAC Regular rate and rhythm, no edema. ABDOMINAL Soft, ND/NT. No evidence of fluid wave. No pulsatile masses on exam, rebound tenderness, Nicole sign or pain over Mcburney's point. MUSCLES/EXTREMITIES No abnormal range of motion, no swelling. SKIN Warm, pink and dry. No rashes, dermatoses, petechiae or lesions. Healing tick bite site in RU back area. No signs of infection/ inflamation. NEUROLOGICAL Speech is clear and appropriate. Normal level of consciousness. Gait and coordination are normal. 5/5 strength in all extremities. PSYCH Normal mood and affect. Judgement/competence is appropriate Coding Level of Care Code Est Pt Level 2 (71870) Diagnoses Tick bite of right shoulder, initial encounter S40.261A; W57.XXXA Encounter type: initial encounter Site of tick bite: shoulder Laterality: right Time Spent (min) 20 Assessment & Plan Assessment & Plan (1) Tick bite: Code(s): W57.XXXA - Bitten or stung by nonvenomous insect and other nonvenomous arthropods, initial encounter Category: Medical Qualifiers: Encounter type: initial encounter Site of tick bite: shoulder Laterality: right Qualified Code(s): S40.261A - Insect bite (nonvenomous) of right shoulder, initial encounter; W57.XXXA - Bitten or stung by nonvenomous insect and other nonvenomous arthropods, initial encounter Plan: - The patient presents for follow-up of a recent tick bite. - The site is erythematous but appears to be healing appropriately without signs of infection or retained foreign body. - He has completed prophylactic doxycycline and serology for tick-borne illnesses was negative. - Advised the patient that the bite site needs more time to heal. - No further diagnostic testing, including additional blood tests, is required at this time. - Recommended to continue applying topical bacitracin ointment. - Instructed to monitor the site weekly and return if it gets worse, becomes bulging, or shows signs of infection. - The patient will follow up with his primary care provider as scheduled in August. Plan I examined the site of the patient's recent tick bite, which is still red but healing well. I used tweezers to inspect the area and reassured him that there were no remaining parts of the tick, only a small scab. I reviewed his negative lab results for tick-borne diseases and explained that this means the tick did not transmit an infection, and the completed course of doxycycline provided sufficient prophylaxis. I informed him that no follow-up blood tests are necessary. I instructed him to monitor the site for any signs of worsening, such as increased swelling or signs of infection, and to return if these occur. I also advised him that the saved tick head was not needed for further management.
--- OUTSIDE RECORDS SUMMARY | 2025-06-26 02:09 | XMS_ITS | Encounter Summary ---
Author Organization [facility] Address [address] [place] [address] Phone Care Team Providers Care Rail Setter Name Role Phone Mckinley Choi MD Primary Care Provider [phone] Christie Floyd MD Primary Care Provider [phone] Mckinley Choi MD Primary Care Provider Reason for Referral * MRI/CAT Scan - Closed Specialty Diagnoses / Procedures Referred By Bari nicole Referred To Contact Radiology Diagnoses Atherosclerosis of [place] coronary artery of [place] heart without angina pectoris Procedures NC Myocardial Perfusion Stress Single NC Myocardial Perfusion Exercise Multiple Wandy Bridges NP Phone: tel: mailto:[email or web address] Referral ID Status Reason Start Date Expiration Date Visits Re quested Visits Authorized [id number] Closed 10/21/2017 10/21/2018 1 1 Encounter Details Date Type Department Care Team (Latest Contact Info) Description 11/02/2017 Ancillary Orders [facility] [address], [address] [place] [address] Wandy Bridges NP [address] [place] [address] [email or web address] Atherosclerosis of [place] coronary artery of [place] heart without angina pectoris Social History Tobacco [...] EKG reviewed with Dr. Case. Wandy Bridges FUNERAL LOCATION MANAGER . Stress Function Comments Post-stress ejection fraction [...] this encounter Visit Diagnoses Diagnosis Atherosclerosis of [place] coronary artery of [place] heart without angina pectoris Atherosclerosis of [place] coronary artery of [place] heart without angina pectoris documented in this encounter Care Teams Rail Setter Relationship Specialty Start Date End Date Mckinley Choi MD [address] [place] [address] Dr Mary [address] [place] [id number] PCP - General 05/26/17 12/08/17 Christie Floyd MD [address] [place] [address] [address] [place] [phone] PCP - General Internal Medicine 12/09/17 01/08/18 Mckinley Choi MD [address] [place] [address] Dr Mary [address] [place] [phone] PCP - General Internal Medicine 01/09/18 documented as of this encounter Additional Source Comments The information contained in this document represents components of the legal health record. It is not the complete legal health record.[facility]
== END 2025-06-25 12:56 | disposition home or self-care (01) ==
LOC: HO.HMCH 11:26
PROVIDERS: PCP Internal Medicine; Visit Provider Internal Medicine
DX: S40.261A Insect bite (nonvenomous) of right shoulder, initial encounter (principal); W57.XXXA Bitten or stung by nonvenomous insect and other nonvenomous arthropods, initial encounter

== ENCOUNTER → 2025-06-25 11:24 | Outpatient (BNVA) | payer MEDICARE, SELFPAY ==
[2023-03-31 07:35] VITALS: BP 100/58; BP 126/68
[2023-07-20 15:41] VITALS: BP 90/50; BMI 30.9
== END ==
PROVIDERS: PCP Internal Medicine; Visit Provider Internal Medicine
DX: S40.261D Insect bite (nonvenomous) of right shoulder, subsequent encounter (principal); W57.XXXD Bitten or stung by nonvenomous insect and other nonvenomous arthropods, subsequent encounter
CPT/HCPCS: 99212

== ENCOUNTER 2025-07-01 12:45 | Outpatient (REF) | payer MEDICARE, SELFPAY ==
[2023-03-31 07:35] VITALS: BP 100/58; BP 126/68
[2023-07-20 15:41] VITALS: BP 90/50; BMI 30.9
--- NOTE | ~2025-07-01 | CT_ITS ---
EXAMINATION: CT CHEST WITHOUT CONTRAST CLINICAL INFORMATION: R91.8 - Other nonspecific abnormal finding of lung field COMPARISON: June 29, 2024 TECHNIQUE: Multidetector volumetric CT imaging of the chest was done. Axial MIP volume rendering provided. Sagittal and coronal reformatted images were obtained. This CT examination was performed using dose optimization techniques as appropriate, variously including the following: *Automated exposure control *Adjustment of mA and/or kV according to patient size (this includes techniques or standardized protocols for targeted exams where dose is matched to indication/reason for exam; i.e. extremities or head) *Use of iterative reconstruction technique FINDINGS: LUNGS: Again seen is linear scarring in the anterior right upper lobe. Again seen are coarse septal lines or intralobular septal thickening in the right greater than left lung base. There are no new pulmonary nodules. MEDIASTINUM: There are numerous surgical clips related to CABG. Leads from 2-lead pacemaker again noted in the right ventricle and right atrium. There is mitral annular calcification. Heart size is within normal limits. No adenopathy is demonstrated. CORONARY ARTERY CALCIFICATION: Present PLEURA: There is no pleural effusion. No pleural mass or thickening. AXILLA: No lymphadenopathy. UPPER ABDOMEN: Unremarkable. OSSEOUS STRUCTURES: There are changes from prior median sternotomy. Flowing anterior osteophytes are present in the mid to lower thoracic spine. CT/CT chest wo IV con IMPRESSION: Stable chest. Mild chronic changes. Fleischner guidelines were followed. Electronically signed by: Ochoa Osman MD 07/01/2025 01:12 PM [facility]
--- OUTSIDE RECORDS SUMMARY | 2025-07-01 16:56 | XMS_ITS | Encounter Summary ---
Author Organization [facility] Address [address] [place] [address] Phone Care Team Providers Care Delivery Merchandiser Name Role Phone Mckinley Choi MD Primary Care Provider [phone] Christie Floyd MD Primary Care Provider [phone] Mckinley Choi MD Primary Care Provider [phone] Reason for Referral * MRI/CAT Scan - Closed Specialty Diagnoses / Procedures Referred By Bari nicole Referred To Contact Radiology Diagnoses Atherosclerosis of [place] coronary artery of [place] heart without angina pectoris Procedures NC Myocardial Perfusion Stress Single NC Myocardial Perfusion Exercise Multiple Wandy Bridges NP Phone: tel: mailto:[email or web address] Referral ID Status Reason Start Date Expiration Date Visits Re quested Visits Authorized [id number] Closed 10/21/2017 10/21/2018 1 1 Encounter Details Date Type Department Care Team (Latest Contact Info) Description 11/02/2017 Ancillary Orders [facility] [address], [address] [place] [address] Wandy Bridges NP [address] [place] [address] [email or web address] Atherosclerosis of [place] coronary artery of [place] heart without angina pectoris Social History Tobacco [...] EKG reviewed with Dr. Case. Wandy Bridges NATIONAL ACCOUNT EXECUTIVE . Stress Function Comments Post-stress ejection fraction [...] this encounter Visit Diagnoses Diagnosis Atherosclerosis of [place] coronary artery of [place] heart without angina pectoris Atherosclerosis of [place] coronary artery of [place] heart without angina pectoris documented in this encounter Care Teams Delivery Merchandiser Relationship Specialty Start Date End Date Mckinley Choi MD [address] [place] [address] Dr [address] [place] [id number] PCP - General 05/26/17 12/08/17 Christie Floyd MD [address] [place] [address] [address] [place] [phone] PCP - General Internal Medicine 12/09/17 01/08/18 Mckinley Choi MD [address] [place] [address] Dr Mary [address] [place] [id number] PCP - General Internal Medicine 01/09/18 documented as of this encounter Additional Source Comments The information contained in this document represents components of the legal health record. It is not the complete legal health record.[facility]
--- OUTSIDE RECORDS SUMMARY | 2025-07-01 16:56 | XMS_ITS | Clinical Summary ---
Author Organization [facility] Address [address] [address] Phone Care Team Providers Care Sap Bods Developer Name Role Phone Mckinley Choi MD Primary Care Provider [phone] Allergies Active Allergy Reactions Criticality Noted Date Comments Amoxicillin Anaphylaxis,Hives,[facility] 12/09/2017 facial Beta-Blockers (Beta-Adrenergic Blocking Agts) Anxiety Low 10/21/2017 Clindamycin Hcl Anaphylaxis,Hives,[facility] 12/09/2017 Swelling for the lips Levofloxacin Anaphylaxis,Hives,[facility] 12/09/2017 Swelling of the lips Medications [...] recently seen in the emergency room at [facility] for symptomatic PSVT with HR 180's. [...] hyperplasia 07/06/2017 Coronary artery disease invo lving [place] coronary artery of [place] heart without angina pectoris 07/06/2017 Overview (12/09/2017): [...] PM EST): He was recently admitted to [facility] this past June with an episode [...] PM EST): Normal LFTs on his admission [facility] in June --He will continue his [...] file Insurance MEDICARE PART A & B Host Committee MEDEX SUPPLEMENT MEDICARE PART A & B Host Committee MEDEX SUPPLEMENT MEDICARE PART A & B Host Committee MEDEX SUPPLEMENT [place] MEDICARE PART A & B Host Committee MEDEX SUPPLEMENT MEDICARE PART A & B [facility] MEDEX SUPPLEMENT MEDICARE PART A & B Host Committee MEDEX SUPPLEMENT MEDICARE PART A & B Host Committee MEDEX SUPPLEMENT MEDICARE PART A & B [employer] MEDEX SUPPLEMENT MEDICARE PART A & B [employer] MEDEX SUPPLEMENT Care Teams Sap Bods Developer Relationship Specialty Start Date End Date Mckinley Choi MD NPI: [id number] [place] [address] [place] [address] PCP - General Internal Medicine 01/09/18 Additional Source Comments The information contained in this document represents components of the legal health record. It is not the complete legal health record.[facility]
== END 2025-07-01 12:46 | disposition home or self-care (01) ==
LOC: HO.CT 12:45
PROVIDERS: PCP Internal Medicine; Visit Provider Nurse Practitioner Family
DX: R91.8 Other nonspecific abnormal finding of lung field (principal)
CPT/HCPCS: 71250

== ENCOUNTER → 2025-07-01 12:47 | Outpatient (BNV) | payer MEDICARE, SELFPAY ==
[2023-03-31 07:35] VITALS: BP 100/58; BP 126/68
[2023-07-20 15:41] VITALS: BP 90/50; BMI 30.9
== END ==
PROVIDERS: PCP Internal Medicine; Visit Provider Radiology Diagnostic Radiology
DX: R91.8 Other nonspecific abnormal finding of lung field (principal)
CPT/HCPCS: 71250

== ENCOUNTER 2025-07-03 09:06 | Outpatient (AMB) | payer MEDICARE, SELFPAY ==
[2023-03-31 07:35] VITALS: BP 100/58; BP 126/68
[2023-07-20 15:41] VITALS: BP 90/50; BMI 30.9
--- OUTSIDE RECORDS SUMMARY | 2024-04-06 06:00 | XMS_ITS ---
Author Organization Ivan Llanes III, MD Address [address] [place] [address] Care Team Providers Care Cubing Machine Tender Name Role Phone ISMAEL RIDER Primary Care Provider Dr. Ivan Llanes III Unavailable Allergies Allergen (clinical drug ingredient) Drug/Non Drug Allergy documented on EMR Reaction Allergy Type Onset Date Status Substance with beta adrenergic receptor antagonist mechanism of action (substance) Beta Adrenergic Blockers suncope Drug Allergy Active Tape burn Allergy Active Bee Sting Unknown Allergy Active REASON FOR VISIT History of colon cancer, Benign prosthetic hypertrophy, Osteoarthritis, Coronary artery, Hyperlipidemia Medications Medication SIG (Take, Route, Frequency, Duration) Notes Start Date End Date Status Rosuvastatin Calcium 40 MG Oral Active Bisoprolol Fumarate 5 MG 1/2 Tablet Oral ly Once a day Active Finasteride 5 MG Oral Act audra Nitroglycerin 0.4 MG as directed Sublingual PRN Active Benadryl PRN Active Aspirin Adult Low Strength 81 MG 1 tablet Orally Once a day Active Zetia 10 MG 1 tablet Orally Once a day Active Social History Tobacco Use: Social History Observation Description Date Details (start date - stop date) Never Smoker NA - NA Tobacco Use/Smoking Question Answer Notes Patient is a nonsmoker Additional Findings: Tobacco Non-User Aggressive non-smoker Vital Signs Temperature 97.5 degrees Fahrenheit 04/06/20 24 Blood pressure systolic 121 mm Hg 04/06/20 24 Blood pressure diastolic 69 mm Hg 024 Heart Rate 63 /min 04/06/2024 Height 69 in 04/06/2024 Weight 206 lbs 04/06/2024 BMI 30.42 kg/m2 04/06/2024 Encounters Encounter Location Date Provider Diagnosis Ivan Llanes III, MD [address] [place] [address] DR JAEGER BALJINDER, [place] [address] 04/06/2024 Ivan Llanes Malignant neoplasm o f colon, unspecified part of colon C18.9 ; BPH (benign prostatic hyperplasia) N40.0 ; Osteoarthritis of multiple joints, unspecified osteoarthritis type M15.9 ; Coronary artery disease involving [place] coronary artery without angina pectoris, unspecified whether [place] or transplanted heart I25.10 and Obesity E66.9 Assessments Encounter Date Diagnosis (ICD Code) Assessment Notes Treat ment Notes Treatment Clinical Notes 04/06/2024 Malignant neoplasm o f colon, unspecified part of colon (ICD-10 - C18.9) There is no sign of disease recurrence or of a new primary tumor. He will continue with surveillance and periodic colonoscopies. 04/06/2024 BPH (benign prostati c hyperplasia) (ICD-10 - N40.0) He is taking 3 medications arises from sleep 4 times a night. He will follow up with primary care and urology. 04/06/2024 Osteoarthritis of multiple joints, unspecified osteoarthritis type (ICD-10 - M15.9) He has mild symptoms arthritis in his knees. He is taking ibuprofen with good relief. 04/06/2024 Coronary artery disease involving [place] coronary artery without angina pectoris, unspecified whether [place] or transplanted heart (ICD-10 - I25.10) Since his last visit he has had no episodes of angina with exertion or at rest. There is no need to change his regimen at this time. 04/06/2024 Obesity (ICD-10 - E66.9) He has lost 3 pounds. We discussed diet and nutrition today. We reviewed his weight loss strategy. We made a plan to lose weight at a rate of one half of a pound per week. Plan Of Treatment Medication Medication Name Sig Start Date Stop Date Notes Rosuvastatin Calcium 40 MG Oral Bisoprolol Fumarate 5 MG 1/2 Tablet Oral ly Once a day Finasteride 5 MG Oral Nitroglycerin 0.4 MG as directed Sublingual PRN Benadryl PRN Aspirin Adult Low Strength 8 1 MG 1 tablet Orally Once a day Zetia 10 MG 1 tablet Orally Once a day Next Appt Details Follow Up: 1 Year, Reason: o v Progress Notes * Kathi CARRASCO: 7 (79 yo M)Acc No.[id number]:04/06/2024 Progress Notes Patient: Kartik Crespo Provider: Elizabeth Llanes MD :1945 A ge:79 Y S ex:Male Date:04/06/2024 Address: [address], [facility], [id number] Pcp:Mckinley Choi MD Subjective: * Chief Complaints: * H istory of colon cancerBenign prosthetic hypertrophyOsteoarthritisCoronary arteryHyperlipidemia * HPI: C OVID-19 Screening: He returns for ongoing surveillance of his colon cancer. Since his last visit there have been no further cases of cancer in his family. His appetite is good. His weight is stable. He has no abdominal complaints. There was no sign of recurrent disease or new primary. His last colonoscopy was in 2020 and was negative. This is done by Dr. Pedro. Questions H ave you experienced fever, chills, cough, sore throat, shortness of breath, difficulty breathing, muscle aches, loss of taste or smell? N o H ave you been exposed to the virus within the last 10 days? N o H ave you travelled internationally in the last 10 days? N o H ave you been exposed to COVID-19 in the past? Y es * ROS: G eneral/Constitutional: pain o nly normal aches and pains. C hills d enies.?Fatigue a dmits. F ever d enies. E NT: Decreased hearing d enies. R espiratory: Cough d enies. C ardiovascular: Chest pain with exertion d enies. D yspnea on exertion?denies. S hortness of breath d enies. G astrointestinal: Constipation d enies. D ecreased appetite d enies.?Diarrhea d enies. H eartburn d enies. N ausea d enies. R ectal bleeding?denies. V omiting d enies. H ematology: bruising d enies. p etechiae d enies. S wollen glands n one have been noted. G enitourinary: Frequent urination o nce a night. M usculoskeletal: Muscle aches d enies. P ainful joints d enies. S ciatica d enies. W eakness d enies. S kin: Itching d enies. R berkley d enies. S kin lesion(s)?denies. N eurologic: Difficulty speaking d enies. D izziness d enies.?Headache d enies. L ow back pain d enies. P sychiatric: Depressed mood d enies. * Medical History: * Surgical History: c olonoscopy 2005 TKR right 1998 3 vessel CABG Jul 2011 transverse loop colostomy 2011 sigmoid colectomy rotator cuff repair 2014cataract surgery 2014Right Knee revision 02/2015right knee replacement 2015both eye cataract surgery 2017shoulder tear 2016Pacemaker 07/2022 * Hospitalization/Major Diagno stic Procedure: D enies Past Hospitalization * Family History: F ather: 53 yrs, colon cancer, diagnosed with Cancer. M other: 66 yrs, breast cancer, lung cancer, depression, diagnosed with Cancer. P aternal aunt: 2 aunts dx. A paternal cousin has colon cancer. His sister Larissa had bladder cancer detected and treated 2012. * Social History: T obacco Use: T obacco Use/Smoking P juwan is a n onsmoker A dditional Findings: Tobacco Non-User A ggressive non-smoker H steve has been to [place] for 43 years. He has an occasional beer. 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 He was born [place], [place]. * Medications: T akingNitroglycerin 0.4 MG Tablet Sublingual as directed Sublingual , Notes: PRNBenadryl , Notes: PRNZetia 10 MG Tablet 1 tablet Orally Once a dayAspirin Adult Low Strength 81 MG Tablet Delayed Release 1 tablet Orally Once a dayBisoprolol Fumarate 5 MG Tablet 1/2 Tablet Orally Once a dayRosuvastatin Calcium 40 MG Tablet Oral Finasteride 5 MG Tablet Oral Taking Nitroglycerin 0.4 MG Tablet Sublingual as directed Sublingual , Notes: PRNTaking Benadryl , Notes: PRNTaking Zetia 10 MG Tablet 1 tablet Orally Once a dayTaking Aspirin Adult Low Strength 81 MG Tablet Delayed Release 1 tablet Orally Once a dayTaking Bisoprolol Fumarate 5 MG Tablet 1/2 Tablet Orally Once a dayTaking Rosuvastatin Calcium 40 MG Tablet Oral Taking Finasteride 5 MG Tablet Oral DiscontinuedMetamucil 30.9 % Powder as directed Orally once a dayLipitor 20 mg Tablet 1 tablet Orally Once a dayTylenol 325 MG Tablet 1 tablet as needed Orally every 6 hrsZyrTEC Allergy 10 MG Tablet 1 tablet Orally Once a daymetFORMIN HCl 500 MG Tablet 1 tablet with a meal Orally twice a dayRanolazine ER 500 MG Tablet Extended Release 12 Hour Oral Isosorbide Mononitrate ER 60 MG Tablet Extended Release 24 Hour Oral amLODIPine Besylate 2.5 MG Tablet TAKE 1 TABLET BY MOUTH EVERY DAY Oral Medication List reviewed and reconciled with the patientDiscontinued Metamucil 30.9 % Powder as directed Orally once a dayDiscontinued Lipitor 20 mg Tablet 1 tablet Orally Once a dayDiscontinued Tylenol 325 MG Tablet 1 tablet as needed Orally every 6 hrsDiscontinued ZyrTEC Allergy 10 MG Tablet 1 tablet Orally Once a dayDiscontinued metFORMIN HCl 500 MG Tablet 1 tablet with a meal Orally twice a dayDiscontinued Ranolazine ER 500 MG Tablet Extended Release 12 Hour Oral Discontinued Isosorbide Mononitrate ER 60 MG Tablet Extended Release 24 Hour Oral Discontinued amLODIPine Besylate 2.5 MG Tablet TAKE 1 TABLET BY MOUTH EVERY DAY Oral Medication List reviewed and reconciled with the patient * Allergies: B eta Adrenergic Blockers: suncopeBee StingTape: maxwell[Allergies Verified] Objective: * Vitals: H t: 69, Wt:206, BMI:30.42, BP:121/69, HR:63, Temp:97.5, Wt-k.44. * Examination: G eneral Examination: GENERAL APPEARANCE: p leasant, well nourished, well developed, in no acute distress, calm and relaxed , obese , man. HEAD: a traumatic, normocephalic. EYES: e michelle, perrla, anicteric, conjugate. EARS: n ormal. NOSE: s eptum intact. ORAL CAVITY: n ormal, unremarkable. NECK/THYROID: n o jugular venous distention, no carotid bruit, thyroid normal. LYMPH NODES: n o enlarged lymph nodes,spleen normal. SKIN: n o suspicious lesions, anicteric. HEART: n o clicks, gallops, murmurs, or rubs, regular rhythm, S1, S2 normal, no s3, or vascular bruits. LUNGS: c lear to auscultation . BREASTS: no masses palpable bilaterally. ABDOMEN: b owel sounds normal, no ascites, no organomegaly, no mass , centripital obesity. RECTAL EXAM: n ot examined. MUSCULOSKELETAL: e xtremities unremarkable, no clubbing, cyanosis or edema. PERIPHERAL PULSES: n ormal. NEUROLOGIC: a lert and oriented, cranial nerves 2-12 grossly intact, deep tendon reflexes 2+ symmetrical, motor strength normal upper and lower extremities, sensory exam intact. PSYCH: a lert, oriented , cooperative with exam , cognitive function intact , thought process logical, goal directed , speech clear. Assessment: * Assessment: 1. B PH (benign prostatic hyperplasia) - N40.0, He is taking 3 medications arises from sleep 4 times a night. He will follow up with primary care and urology. 2 . M alignant neoplasm of colon, unspecified part of colon - C18.9, There is no sign of disease recurrence or of a new primary tumor. He will continue with surveillance and periodic colonoscopies. 3 . O steoarthritis of multiple joints, unspecified osteoarthritis type - M15.9, He has mild symptoms arthritis in his knees. He is taking ibuprofen with good relief. 4 . C oronary artery disease involving [place] coronary artery without angina pectoris, unspecified whether [place] or transplanted heart - I25.10, Since his last visit he has had no episodes of angina with exertion or at rest. There is no need to change his regimen at this time. 5 . O besity - E66.9, He has lost 3 pounds. We discussed diet and nutrition today. We reviewed his weight loss strategy. We made a plan to lose weight at a rate of one half of a pound per week. Plan: * Treatment: * Procedure Codes: * Preventive Medicine: Counseling: C are goal follow-up plan: Counseling for abnormal BMI given Y es Above Normal BMI Follow-up D ietary management education, guidance, and counseling, Dietary needs education, Exercise promotion: strength training, Exercise promotion: stretching, Feeding regime, Giving encouragement to exercise, Lifestyle education regarding diet, Nutrition / feeding management, Nutrition therapy, Prescribed activity/exercise education, Prescribed diet education, Prescribed dietary intake, Special diet education, Weight monitoring , Intervention, Order not done: Medical or Other reason not done * Follow Up: 1 Year (Reason: ov) * Images: * Sign off status: Completed true * Provider: Elizabeth Llanes MD Date: 0 04/06/2024 Generated for Printi ng/Faalyseg/eTransmitting on: 1 09/02/2024 09:52 AM EST History and Physical Notes * HPI (History of Present Illness) Category Sub-Category Detail Notes COVID-19 Screening Questions Have you had any new onset fever, chills, cough, congestion, sore throat, shortness of breath, muscle aches?: No Have you been exposed to the virus withi n the last 10 days?: No Have you travelled internationally in [facility] last 10 days?: No Have you been exposed to COVID-19 in the past?: Yes Examination Category Sub-Category Detail Notes General Examination GENERAL APPEARANCE: pleasant , well nourished, well developed, in no acute distress, calm and relaxed , obese , man HEAD: atraumatic, normocep halic EYES: eomi, perrla, anicte jeramy, conjugate EARS: normal NOSE: septum intact NECK/THYROID: no jugular venous di stention, no carotid bruit, thyroid normal HEART: no clicks, gallops, murmurs, or rubs, regular rhythm, S1, S2 normal, no s3, or vascular bruits LUNGS: clear to auscultatio n ABDOMEN: bowel sounds normal, no ascites, no organomegaly, no mass , centripital obesity NEUROLOGIC: alert and oriented, cranial nerves 2-12 grossly intact, deep tendon reflexes 2+ symmetrical, motor strength normal upper and lower extremities, sensory exam intact SKIN: no suspicious lesion s, anicteric PERIPHERAL PULSES: normal BREASTS: no masses palpable b ilaterally MUSCULOSKELETAL: extremities unremark able, no clubbing, cyanosis or edema LYMPH NODES: no enlarged lymph no max,spleen normal RECTAL EXAM: not examined PSYCH: alert, oriented , co operative with exam , cognitive function intact , thought process logical, goal directed , speech clear ORAL CAVITY: normal, unremarkable
--- OUTSIDE RECORDS SUMMARY | 2025-04-04 07:30 | XMS_ITS ---
Author Organization Ivan Llanes III, MD Address [address] [place] [address] [place] [address] Care Team Providers Care Sheltered Workshop Executive Director Name Role Phone ISMAEL RIDER Primary Care Provider Dr. Ivan Llanes III Unavailable [phone] REASON FOR VISIT Follow up Encounters Encounter Location Date Provider Diagnosis Ivan Llanes III, MD [address] [place] [address] [place] [address] 04/04/2025 Ivan Llanes Plan Of Treatment No Information Progress Notes * Kartik CARRASCODOB: 7 (80 yo M)Acc No.[id number]:04/04/2025 Progress Notes Patient: Kartik PALACIO Provider: Elizabeth Llanes MD :1945 A ge:80 Y S ex:Male Date:04/04/2025 Address:[address] [id number] Pcp:ISMAEL RIDER Subjective: * Chief Complaints: * [...] 0 04/04/2025 Generated for Printi ng/Faalyseg/eTransmitting on: 09/02/2024 09:52 AM EST
--- OUTSIDE RECORDS SUMMARY | 2025-04-15 06:00 | XMS_ITS ---
Author Organization Ivan Llanes III, MD Address [address] [address] Care Team Providers Care Brand Development Manager Name Role Phone ISMAEL RIDER Primary Care Provider [phone] Ivan Llanes III Unavailable Allergies [...] Date Provider Diagnosis Ivan Llanes III, MD [address] [place] [address] [place] [address] 04/15/2025 Ivan Llanes Malignant neoplasm o f colon, unspecified part of colon C18.9 ; BPH (benign prostatic hyperplasia) N40.0 ; Osteoarthritis of multiple joints, unspecified osteoarthritis type M15.9 and Coronary artery disease involving [place] coronary artery without angina pectoris, unspecified whether [place] or transplanted heart I25.10 Assessments Encounter Date [...] good relief. 04/15/2025 Coronary artery disease involving [place] coronary artery without angina pectoris, unspecified whether [place] or transplanted heart (ICD-10 - I25.10) Since [...] * Kartik CARRASCODOB: 7 (80 yo M)Acc No.[id number]:04/15/2025 Progress Notes Patient: Kartik PALACIO Provider: Elizabeth Llanes MD :1945 A ge:80 Y S ex:Male Date:04/15/2025 Address: [address], [place], [id number] Pcp:ISMAEL RIDER Subjective: * Chief Complaints: * H istory colon cancerCoronary artery diseaseBenign prostatic hypertrophy * HPI: C OVID-19 Screening: He returns for his last surveillance visit for colon cancer. He feels healthy and well. There have been no cases of malignancy in his immediate family. He continues in [facility] without complaints. 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 He was born [place], [place]. * Medications: T akingNitroglycerin 0.4 MG [...] 4 . C oronary artery disease involving [place] coronary artery without angina pectoris, unspecified whether [place] or transplanted heart - I25.10 N otes [...] 0 04/15/2025 Generated for Ольгаi ng/Dajuan/eTransmitting on: 09/02/2024 09:52 AM EST History and Physical [...]
--- NOTE | 2025-07-03 08:59 | MHC.OFFVIS ---
Vital Signs 07/03/25 09:09 Height 5 ft 9 in Weight 203 lb 4 oz BMI 30.0 BP 102/60 Blood Pressure Location Rt brachial Position Sitting Pulse 55 Pulse Source Pulse Oximeter Pulse Oximetry (%) 97 Oxygen Delivery Method Room Air Intake Visit Reasons: CT Follow UP Allergies BERNABE Inhibitors (BERNABE INHIBITORS) Allergy (Intermediate, Verified 07/03/25 09:12) DEPRESSION latex (LATEX) Allergy (Intermediate, Verified 07/03/25 09:12) RASH terazosin Allergy (Intermediate, Verified 07/03/25 09:12) hives, swollen lips and hoarseness pravastatin (Pravachol) Allergy (Unknown, Verified 07/03/25 09:12) unknown bee pollen (bee stings) Adverse Reaction (Severe, Verified 07/03/25 09:12) Anaphylaxis Beta-Blockers (Beta-Adrenergic Bloc (BETA-BLOCKERS (BETA-ADRENERGIC BLOC) Adverse Reaction (Intermediate, Verified 07/03/25 09:12) DECREASED HR, DEPRESSION amoxicillin Allergy (Intermediate, Uncoded 07/03/25 09:12) hives, swollen lips, and hoarseness cephlex: levofloxacin Allergy (Intermediate, Uncoded 07/03/25 09:12) hives, swollen lips, and hoarseness clindomycin Allergy (Intermediate, Uncoded 07/03/25 09:12) hives, swollen lips, and hoarseness HPI HPI CT Follow UP: Details: Kartik is a pleasant 80 year old male, never smoker, with underlying h/o adenocarcinoma of colon 2010, hypertension, hyperlipidemia, diabetes, severe CAD, coronary artery bypass grafting 1998, ischemic cardiomyopathy, pacemaker for SSS, and supraventricular tachycardia. Prior cardiac evaluation revealed prior LVEF 35-40%, mild aortic regurgitation, RVSP 34 . Cardiac cath on 02/02/24 revealed PA mean 21 and wedge pressure 12 mmHg, not suggestive of pulmonary hypertension. Approximately 6 months ago he had discontinued Ranexa and reports 30-40% improvement in overall fatigue and exercise intolerance, and currently denies any respiratory symptoms. He does note labored breathing with heavy lifting however has been instructed by cardiology to avoid this. Since the last visit, patient prescribed Entresto however is apprehensive to take. Today he presents to review chest CT and PFT. He denies any visits to urgent care or hospitalizations related to respiratory distress since the visit[facility] Medical History SOB (shortness of breath) on exertion Acute bacterial sinusitis Impetigo Multiple pulmonary nodules Decreased diffusion capacity Dyspnea Diabetes mellitus with coincident hypertension Bruised ribs Cellulitis of nose Right leg pain Cough Hyperlipidemia associated with type 2 diabetes mellitus Diabetes mellitus Ischemic cardiomyopathy Pacemaker (~2021) Bradycardia (~2021) History of COVID-19 BPH (benign prostatic hyperplasia) Hypertension Obesity Tubular adenoma of colon COVID-19 vaccine administered History of colon cancer (~2010) PVC (premature ventricular contraction) SVT (supraventricular tachycardia) CAD (coronary artery disease) Surgical History S/P cardiac cath History of pacemaker (~2021) History of coronary artery bypass graft x 3 (~1998) History of hernia repair (~2012) History of colonoscopy History of left knee surgery (~2003) History of right knee surgery History of colostomy (~2010) History of partial colectomy (~2011) History of tonsillectomy History of repair of rotator cuff History of cataract surgery (~2013) History of cardiac cath History of colostomy reversal (~2011) Family History Father Cancer, colon Mother Cancer of breast Cancer of lung Sister Cancer Social History Household Members: Spouse Housing: House Are you a primary urgent care physician to a significant other at home: No Do you presently have visiting nurse or other home services: No Alcohol intake: current Alcohol intake frequency: 0-2 drinks per day Comment: 4x a week 2 drinks Patient Tobacco Use Status: Never used Tobacco Tobacco use type: Cigarette e-Cigarette/Vaping Use: Never Used Second Hand Smoke Exposure: No service: No Current occupational status: retired Cognitive needs: No Hearing needs: No Vision needs: Yes (glasses) Review of Systems Const Denies chills, Denies excessive sweating, Denies fever(s), Denies headache(s) and Denies night sweats Eyes Denies dry eyes, Denies irritation and Denies itchy eyes ENT Reports Normal hearing present, Denies headache(s), Denies nasal congestion, Denies nasal discharge, Denies post nasal drip and Denies sore throat Card Denies chest pain, Denies chest pain at rest, Denies chest pain with activity, Denies claudication, Denies leg edema, Denies orthopnea and Denies paroxysmal nocturnal dyspnea Resp Denies chest congestion, Denies cough, Denies excessive phlegm production, Denies pain on inspiration, Denies pain with cough, Denies stridor and Denies wheezing Musc Denies myalgias Neuro Reports Normal hearing present and Denies headache(s) Endo Denies excessive sweating Cornel/Lymph Denies lymphadenopathy Aller/Immun Denies itchy eyes, Denies seasonal rhinorrhea and Denies wheezing Physical Exam Vital Signs: Last Vital Signs Pulse 55 07/03/25 09:09 BP 102/60 07/03/25 09:09 Pulse Ox 97 07/03/25 09:09 Oxygen Delivery Method Room Air 07/03/25 09:09 BMI result Body Mass Index 30.0 Const General: cooperative, healthy appearing, comfortable, no acute distress, well developed and alert Orientation/consciousness: patient oriented x3 Limitations: no limitations HEENT Head: Yes normal to inspection, Yes normocephalic and Yes atraumatic Ears: hearing grossly normal bilaterally and external ears normal Eyes General: appearance normal, both eyes and all related structures Eyelids: Yes eyelids normal Sclerae: sclerae normal EOM: EOMs intact bilaterally Neck Neck: Yes normal visual inspection and Yes no lymphadenopathy Lymphatic: no lymphadenopathy noted Chest Chest palpation & inspection: normal inspection of the chest Resp Effort & Inspection: normal respiratory effort, able to speak in complete sentences, no audible wheezes, no cough, no stridor, not tachypneic, no tripod positioning and no use of accessory muscles Auscultation: clear to auscultation bilaterally Cardio Jugular venous distension: no JVD Rate: regular rate Rhythm: regular rhythm Skin Other: warm, dry General skin exam: no rashes or lesions noted Neuro General: patient oriented x3 Cranial nerves: Yes Normal hearing present Cognition (Neuro): normal cognition Gait exam (Neuro): Normal gait present Extrem General: Yes normal to inspection, Yes capillary refill normal, Yes no clubbing, cyanosis or edema and Yes no pedal edema Psych Appearance: grossly normal and well kempt Speech and movement: Normal speech and movement present and Clear speech present Affect: normal affect Attitude: cooperative Thought process: Normal thought process present Thought content: Normal thought content present Insight: Good insight present (Psych) Judgement: Good judgement present (Psych) Results Reviewed Results Reviewed: [address] [address] [address] Scan Report Signed Patient: Kartik Otriz MR#: [id number] : 1945 Acct:[id number] Age/Sex: 80 / M ADM Date: 07/01/25 Loc: HO.CT Attending Dr: Cora Sommers NP Ordering Physician: Cora Sommers NP Date of Service: 07/01/25 Procedure(s): CT chest wo IV con Accession Number(s): [id number] cc: Christie Floyd MD; Cora Sommers NP~ Report Number: [id number]: Total DLP = 174.00 mGy-cm Reason for Exam: R91.8 - Other nonspecific abnormal finding of lung field EXAMINATION: CT CHEST WITHOUT CONTRAST CLINICAL INFORMATION: R91.8 - Other nonspecific abnormal finding of lung field COMPARISON: June 29, 2024 TECHNIQUE: Multidetector volumetric CT imaging of the chest was done. Axial MIP volume rendering provided. Sagittal and coronal reformatted images were obtained. This CT examination was performed using dose optimization techniques as appropriate, variously including the following: *Automated exposure control *Adjustment of mA and/or kV according to patient size (this includes techniques or standardized protocols for targeted exams where dose is matched to indication/reason for exam; i.e. extremities or head) *Use of iterative reconstruction technique FINDINGS: LUNGS: Again seen is linear scarring in the anterior right upper lobe. Again seen are coarse septal lines or intralobular septal thickening in the right greater than left lung base. There are no new pulmonary nodules. MEDIASTINUM: There are numerous surgical clips related to CABG. Leads from 2-lead pacemaker again noted in the right ventricle and right atrium. There is mitral annular calcification. Heart size is within normal limits. No adenopathy is demonstrated. CORONARY ARTERY CALCIFICATION: Present PLEURA: There is no pleural effusion. No pleural mass or thickening. AXILLA: No lymphadenopathy. UPPER ABDOMEN: Unremarkable. OSSEOUS STRUCTURES: There are changes from prior median sternotomy. Flowing anterior osteophytes are present in the mid to lower thoracic spine. CT/CT chest wo IV con IMPRESSION: Stable chest. Mild chronic changes. Fleischner guidelines were followed. Electronically signed by: Ochoa Osman MD 07/01/2025 01:12 PM EST Dictated By: Ochoa Osman MD Signed By: <Electronically signed by Ochoa Osman MD in OV> 07/01/25 1312 DD/ 1250 TD/TT: 07/01/25 1257 Litigation Associate: Assessment & Plan Assessment & Plan (1) Dyspnea: Code(s): R06.00 - Dyspnea, unspecified Category: Medical (2) Decreased diffusion capacity: Code(s): R94.2 - Abnormal results of pulmonary function studies Category: Medical Plan Reviewed PFT 04/2025 which demonstrated no obstructive or restrictive ventilatory defect. No bronchodilator response. Isolated defect in diffusion capacity suggests pulmonary edema, recently had Entresto added to medication regimen per cardiology visit 05/2025 however reluctant to use at this time. Discussed importance of monitoring weight and salt intake. May need to consider PRN lasix dosing if dyspnea occurs. Reviewed chest CT which was unremarkable. All questions were answered and patient is in agreement of plan. Will follow up in 6 months or sooner if needed. Coding Level of Care Code Est Pt Level 4 (08322) Diagnoses Dyspnea R06.00 Decreased diffusion capacity R94.2
[2025-07-03 09:09] VITALS: BP 102/60; PULSE 55; O2SAT 97
--- OUTSIDE RECORDS SUMMARY | 2025-07-03 09:53 | XMS_ITS | Patient Health Record ---
Author Organization Ivan Llanes III, MD Address [address] [place] [address] Care Team Providers Care Dishwasher Busser Name Role Phone ISMAEL RIDER Primary Care [...] Problem Status W/U Status Risk Notes Problem 894356046 Obesity (E66.9) Active confirmed He has lost 3 pounds. We discussed diet and nutrition today. We reviewed his weight loss strategy. We made a plan to lose weight at a rate of one half of a pound per week. Problem 520585758 BPH (benign prostatic hyperplasia) (N40.0) Active confirmed He is taking 3 medications arises from sleep 4 times a night. He will follow up with primary care and urology. Problem 353969414 Osteoarthritis of multiple joints, unspecified osteoarthritis type (M15.9) Active confirmed He has mild symptoms arthritis in his knees. He is taking ibuprofen with good relief. Problem 615767361 Erythrocytosis (D75.1) Active confirmed Numerous recent CBC determinations show his hematocrit to be normal. Problem 669139235 Coronary artery disease involving [place] coronary artery without angina pectoris, unspecified whether [place] or transplanted heart (I25.10) Active confirmed Since his las t visit he has had no episodes of angina with exertion or at rest. There is no need to change his regimen at this time. Problem 487755031 Malignant neoplasm of colon, unspecified part of colon (C18.9) Active confirmed There is no sign of disease recurrence or of a new primary tumor. He will continue with surveillance and periodic colonoscopies.He will return to this office on an as-needed basis. Problem 882617210 Hyperlipidemia type II (E78.01) Active confirmed His [...] Date Provider Diagnosis Ivan Llanes III, MD [address] [place] [address] [place] [address] 04/15/2025 Ivan Llanes Malignant neoplasm o f colon, unspecified part of colon C18.9 ; BPH (benign prostatic hyperplasia) N40.0 ; Osteoarthritis of multiple joints, unspecified osteoarthritis type M15.9 and Coronary artery disease involving [place] coronary artery without angina pectoris, unspecified whether [place] or transplanted heart I25.10 Assessments Encounter Date [...] good relief. 04/15/2025 Coronary artery disease involving [place] coronary artery without angina pectoris, unspecified whether [place] or transplanted heart (ICD-10 - I25.10) Since [...] MEDICARE NGS [address] [place] [address] [id number] Kartik Ortiz Self - patient is the insured [facility] [address] [place], [place] [id number] [phone] [id number] Kartik Ortiz Self - patient is the insured Medical (General) History Medical History History ICD Code coronary artery disease CABG 1998 hyperlipidemia 09/2011 Stage IIa adenocarcinoma of sigmo id colon [id number] bph Surgical History Surgery Date(Month/Year) Pacemaker 07/2022 shoulder tear 2016 both eye cataract surgery 2017 right knee replacement 2016 Right Knee revision 02/2015 cataract surgery 2013 rotator cuff repair 2013 2011 sigmoid colectomy Jul 2011 transverse loop colostomy 1998 3 vessel CABG TKR right colonoscopy 2005
--- OUTSIDE RECORDS SUMMARY | 2025-07-03 09:53 | XMS_ITS | Clinical Summary ---
Author Organization [facility] Address [address] [address] Phone Care Team Providers Care Structural Analyst Name Role Phone Mckinley Choi MD Primary Care Provider [phone] Allergies Active Allergy Reactions Criticality Noted Date Comments Amoxicillin Anaphylaxis,Hives,[facility] 12/09/2017 facial Beta-Blockers (Beta-Adrenergic Blocking Agts) Anxiety Low 10/21/2017 Clindamycin Hcl Anaphylaxis,Hives,[facility] 12/09/2017 Swelling for the lips Levofloxacin Anaphylaxis,Hives,[facility] 12/09/2017 Swelling of the lips [...] recently seen in the emergency room at [facility] for symptomatic PSVT with HR 180's. [...] hyperplasia 07/06/2017 Coronary artery disease invo lving [place] coronary artery of [place] heart without angina pectoris 07/06/2017 Overview (12/09/2017): [...] PM EST): He was recently admitted to [facility] this past June with an episode [...] PM EST): Normal LFTs on his admission [facility] in June --He will continue his [...] file Insurance MEDICARE PART A & B [employer] SUPPLEMENT MEDICARE PART A & B [employer] MED[employer] SUPPLEMENT MEDICARE PART A & B [employer] MEDEX SUPPLEMENT [place] MEDICARE PART A & B [employer] MEDEX SUPPLEMENT MEDICARE PART A & B [facility] MEDEX SUPPLEMENT MEDICARE PART A & B [employer] MEDEX SUPPLEMENT MEDICARE PART A & B [employer] MEDEX SUPPLEMENT MEDICARE PART A & B [employer] MEDEX SUPPLEMENT MEDICARE PART A & B [employer] MEDEX SUPPLEMENT Care Teams Structural Analyst Relationship Specialty Start Date End Date Mckinley Choi MD NPI: [id number] [place] [address] [place] [address] PCP - General Internal Medicine 01/09/18 Additional Source Comments The information contained in this document represents components of the legal health record. It is not the complete legal health record.[facility]
--- OUTSIDE RECORDS SUMMARY | 2025-07-03 09:53 | XMS_ITS | Encounter Summary ---
Author Organization [facility] Address [address] [place] [address] Phone Care Team Providers Care Stereotype Caster Name Role Phone Mckinley Choi MD Primary Care Provider [phone] Christie Floyd MD Primary Care Provider [phone] Mckinley Choi MD Primary Care Provider [phone] Reason for Referral * MRI/CAT Scan - Closed Specialty Diagnoses / Procedures Referred By Bari nicole Referred To Contact Radiology Diagnoses Atherosclerosis of [place] coronary artery of [place] heart without angina pectoris Procedures NC Myocardial Perfusion Stress Single NC Myocardial Perfusion Exercise Multiple Wandy Bridges NP Phone: tel: mailto:[email or web address] Referral ID Status Reason Start Date Expiration Date Visits Re quested Visits Authorized [id number] Closed 10/21/2017 10/21/2018 1 1 Encounter Details Date Type Department Care Team (Latest Contact Info) Description 11/02/2017 Ancillary Orders [facility] [address], [address] [place] [address] Wandy Bridges NP [address] [place] [address] [email or web address] Atherosclerosis of [place] coronary artery of [place] heart without angina pectoris Social History Tobacco [...] EKG reviewed with Dr. Case. Wandy Bridges [employer]ICE . Stress Function Comments Post-stress ejection fraction [...] this encounter Visit Diagnoses Diagnosis Atherosclerosis of [place] coronary artery of [place] heart without angina pectoris Atherosclerosis of [place] coronary artery of [place] heart without angina pectoris documented in this encounter Care Teams Stereotype Caster Relationship Specialty Start Date End Date Mckinley Choi MD [address] [place] [address] Dr Mary [address] [place] [address] PCP - General 05/26/17 12/08/17 Christie Floyd MD [address] [place] [address] [address] [place] [phone] PCP - General Internal Medicine 12/09/17 01/08/18 Mckinley Choi MD [address] [place] [address] Dr Mary [address] [place] [address] PCP - General Internal Medicine 01/09/18 documented as of this encounter Additional Source Comments The information contained in this document represents components of the legal health record. It is not the complete legal health record.[facility]
--- OUTSIDE RECORDS SUMMARY | 2025-07-03 09:53 | XMS_ITS | Patient Health Record ---
Author Organization [facility] Address [address] [place] [address] Care Team Providers Care Structurer Name Role Phone Steph MARK, Mckinley Primary Care Provider Ivan Powell Unavailable [phone] Allergies Allergen (clinical drug ingredient) Drug/Non Drug [...] Active Lipitor 20mg Active Flagyl 500 MG Tablet 1 tablet Orally BID ; Duration: 05 days 07/22/2011 Active MoviPrep 100 GM Solution Reconstituted as directed Orally 07/22/2011 Active Social History Social History Additional Details Category Social Info Options Details Miscellaneous: Marital status: 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 [employer] Notes: He does not smoke and drinks only occasional beer Problems Problem Type SNOMED Code ICD Code Onset Dates Problem Status W/U Status Risk Notes Problem Digestive system symptom (949247966) Other symptoms involving digestive system (787.99) Active confirmed Problem Right lower quadrant pain (308882028) Abdominal pain, right lower quadrant (789.03) Active confirmed Problem Left lower quadrant pain (124332731) Abdominal pain, left lower quadrant (789.04) Active confirmed Problem Epigastric pain (74582007) Abdominal pain, epigastric (789.06) Active confirmed Problem Abnormal findings diagnostic imaging of liver and biliary tract (862384793) Nonspecific abnormal findings on radiological and other examination of biliary tract (793.3) Active confirmed Problem Family history of malignant neoplasm of gastrointestinal tract (766539634) Family history of malignant neoplasm of gastrointestinal [...] Start Date Coverage End Date [facility] [employer] [address] [place] [address] [id number] CARRASCO Self - patient is [...]
== END 2025-07-03 09:37 | disposition home or self-care (01) ==
LOC: HO.HPSW 09:07
PROVIDERS: PCP Internal Medicine; Visit Provider Nurse Practitioner Family
DX: R06.00 Dyspnea, unspecified (principal); R94.2 Abnormal results of pulmonary function studies
CPT/HCPCS: 99214

== ENCOUNTER → 2025-07-03 09:06 | Outpatient (BNVA) | payer MEDICARE, SELFPAY ==
[2023-03-31 07:35] VITALS: BP 100/58; BP 126/68
[2023-07-20 15:41] VITALS: BP 90/50; BMI 30.9
== END ==
PROVIDERS: PCP Internal Medicine; Visit Provider Nurse Practitioner Family
DX: R06.02 Shortness of breath (principal); R94.2 Abnormal results of pulmonary function studies; Z95.1 Presence of aortocoronary bypass graft
CPT/HCPCS: 99212

== ENCOUNTER → 2025-07-24 14:50 | Outpatient (BNV) | payer MEDICARE, SELFPAY ==
[2023-03-31 07:35] VITALS: BP 100/58; BP 126/68
[2023-07-20 15:41] VITALS: BP 90/50; BMI 30.9
== END ==
PROVIDERS: PCP Internal Medicine; Visit Provider Internal Medicine Cardiovascular Disease
DX: Z45.018 Encounter for adjustment and management of other part of cardiac pacemaker (principal)
CPT/HCPCS: 93294

== ENCOUNTER 2025-08-06 09:27 | Emergency (ER) | payer MEDICARE, SELFPAY ==
[2023-03-31 07:35] VITALS: BP 100/58; BP 126/68
[2023-07-20 15:41] VITALS: BP 90/50; BMI 30.9
--- OUTSIDE RECORDS SUMMARY | 2024-04-06 06:00 | XMS_ITS ---
Author Organization Ivan Llanes III, MD Address [address] [place] [address] Care Team Providers Care Cloud Solutions Architect Name Role Phone ISMAEL RIDER Primary Care Provider [phone] Ivan Llanes III Unavailable Allergies Allergen [...] Date Provider Diagnosis Ivan Llanes III, MD [address] [place] [address] [address] JAEGER ELDA, [place] [address] 04/06/2024 Ivan Llanes Malignant neoplasm o f colon, unspecified part of colon C18.9 ; BPH (benign prostatic hyperplasia) N40.0 ; Osteoarthritis of multiple joints, unspecified osteoarthritis type M15.9 ; Coronary artery disease involving [place] coronary artery without angina pectoris, unspecified whether [place] or transplanted heart I25.10 and Obesity E66.9 [...] good relief. 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 He was born [place], [place]. * Medications: T akingNitroglycerin 0.4 MG [...] 4 . C oronary artery disease involving [place] coronary artery without angina pectoris, unspecified whether [place] or transplanted heart - I25.10, Since his [...] 04/06/2024 Generated for Printi ng/Faalyseg/eTransmitting on: 1 03:43 PM EST History and Physical Notes * HPI (History of Present Illness) Category Sub-Category Detail Notes COVID-19 Screening Questions Have you had any new onset fever, chills, cough, congestion, sore throat, shortness of breath, muscle aches?: No Have you been exposed to the virus withi n the last 10 days?: No Have you travelled internationally in [facility] last 10 days?: No Have you been [...]
--- OUTSIDE RECORDS SUMMARY | 2025-04-04 07:30 | XMS_ITS ---
Author Organization Ivan Llanes III, MD Address [address] [place] [address] [place] [address] Care Team Providers Care French Binding Folder Name Role Phone ISMAEL RIDER Primary Care Provider [phone] Ivan Llanes III Unavailable [phone] REASON FOR VISIT Follow up Encounters Encounter Location Date Provider Diagnosis Ivan Llanes III, MD [address] [place] [address] [address] [place] [address] 04/04/2025 Ivan Llanes Plan Of Treatment No Information Progress Notes * Kartik CARRASCODOB: 7 (80 yo M)Acc No.[id number]:04/04/2025 Progress Notes Patient: Kartik PALACIO Provider: Elizabeth Llanes MD :1945 A ge:80 Y S ex:Male Date:04/04/2025 Address:[address] [id number] Pcp:ISMAEL RIDER Subjective: * Chief Complaints: * [...] MD Date: 0 04/04/2025 Generated for Printi ng/Faxing/eTransmitting on: 03:44 PM EST
--- OUTSIDE RECORDS SUMMARY | 2025-04-15 06:00 | XMS_ITS ---
Author Organization Ivan Llanes III, MD Address [address] [place] [address] Care Team Providers Care Architect Naval Name Role Phone ISMAEL RIDER Primary Care Provider Dr. Ivan Llanes III Unavailable [phone] Allergies Allergen (clinical drug ingredient) Drug/Non Drug [...] Date Provider Diagnosis Ivan Llanes III, MD [address] [place] [address] [place] [address] 04/15/2025 Ivan Llanes Malignant neoplasm o f colon, unspecified part of colon C18.9 ; BPH (benign prostatic hyperplasia) N40.0 ; Osteoarthritis of multiple joints, unspecified osteoarthritis type M15.9 and Coronary artery disease involving [place] coronary artery without angina pectoris, unspecified whether [place] or transplanted heart I25.10 Assessments Encounter Date [...] good relief. 04/15/2025 Coronary artery disease involving [place] coronary artery without angina pectoris, unspecified whether [place] or transplanted heart (ICD-10 - I25.10) Since [...] * Kartik CARRASCODOB: 7 (80 yo M)Acc No.[id number]:04/15/2025 Progress Notes Patient: Kartik PALACIO Provider: Elizabeth Llanes MD :1945 A ge:80 Y S ex:Male Date:04/15/2025 Address: [address], [place], [id number] Pcp:ISMAEL RIDER Subjective: * Chief Complaints: * H istory colon cancerCoronary artery diseaseBenign prostatic hypertrophy * HPI: C OVID-19 Screening: He returns for his last surveillance visit for colon cancer. He feels healthy and well. There have been no cases of malignancy in his immediate family. He continues in longterm without complaints. 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 He was born [place], [place]. * Medications: T akingNitroglycerin 0.4 MG [...] 4 . C oronary artery disease involving [place] coronary artery without angina pectoris, unspecified whether [place] or transplanted heart - I25.10 N otes [...] MD Date: 0 04/15/2025 Generated for Ольгаi ng/Dajuan/eTransmitting on: 03:43 PM EST History and Physical Notes [...]
--- NOTE | ~2025-08-06 | XR_ITS ---
EXAMINATION: XR WRIST, RIGHT CLINICAL INFORMATION: [facility] COMPARISON: 05/22/2019. TECHNIQUE: PA, lateral, oblique, and scaphoid views of the right wrist. FINDINGS: There is an intra-articular comminuted nondisplaced fracture of the distal radius. There is no articular step off of the intra-articular component. Fracture lines extend to involve the radial styloid. Mild buckling of the dorsal cortex present. Scaphoid appears intact. No abnormal lunate tilt. No additional fracture is evident. 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 Moderate arthritis in the STT joints. Mild negative ulnar variance. There is marked dorsal soft tissue swelling. XR/XR wrist RT w scaphoid IMPRESSION: Comminuted intra-articular distal radial fracture, with minimal displacement. There is no articular step off. Dorsal soft tissue swelling. Electronically signed by: Andres Chandler MD 08/06/2025 10:23 AM [facility] [place] [place]
--- NOTE | ~2025-08-06 | XR_ITS ---
EXAMINATION: XR HAND, RIGHT CLINICAL INFORMATION: [facility] COMPARISON: None available. TECHNIQUE: PA, lateral, and oblique views of the right hand. FINDINGS: Comminuted intra-articular nondisplaced fracture of the distal radius again noted. No additional fracture or dislocation. 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 Mild negative ulnar variance. Moderate arthritis in the first MCP joint, with lesser changes in the second and third MCPs. Significant degenerative arthritis seen throughout the interphalangeal joints, most significant in the DIP joints of the second through fifth digits. There is dorsal soft tissue swelling of the wrist. XR/XR hand RT min 3V IMPRESSION: 1. Comminuted, nondisplaced, intra-articular distal radial fracture. Dorsal soft tissue swelling. 2. No additional fractures of the right hand or wrist identified. 3. Osteoarthritic changes as discussed. Electronically signed by: Andres Chandler MD 08/06/2025 10:26 AM [facility]
[2025-08-06 09:59] VITALS: BP 129/62; PULSE 60; RESP 16; TEMP 37; O2SAT 97; BMI 29.6
--- NOTE | 2025-08-06 10:01 | ED.GENADULT ---
HPI - General Adult General Chief complaint: Fall Stated complaint: wrist injury Time Seen by Provider: 08/06/25 11:11 Related Data Home Medications ?Medication ?Instructions ?Recorded ?Confirmed aspirin 81 mg tablet,delayed 81 mg PO DAILY 05/22/20 06/11/25 release (Adult Low Dose Aspirin) diphenhydramine HCl 25 mg tablet 25 mg PO TID PRN Anxiety 05/22/20 06/11/25 (Benadryl Allergy) ezetimibe 10 mg tablet (Zetia) 10 mg PO DAILY 12/28/23 06/11/25 bisoprolol fumarate 5 mg tablet 5 mg PO DAILY 05/21/25 06/11/25 metformin 500 mg tablet 500 mg PO BID 07/03/25 Previous Rx's ?Medication ?Instructions ?Recorded blood-glucose meter (RobotsLABTouch #1 ea 10/27/20 Verio Meter) lancets 33 gauge (OneTouch Delica #100 ea 10/30/20 Lancets) nitroglycerin 0.4 mg sublingual 0.4 mg sublingual Q5M PRN Chest 11/22/23 tablet Pain #25 tabs blood sugar diagnostic (OneTouch #100 ea 03/15/24 Verio test strips) albuterol sulfate 90 mcg/actuation 2 puff inhalation Q4-6H PRN 09/25/24 aerosol inhaler shortness of breath or wheezing #1 ea blood-glucose sensor (Dexcom G7 #6 ea 04/25/25 Sensor device) blood-glucose,healthcare liaison,cont #1 ea 04/25/25 (Dexcom G7 Medical Insurance Claims Processor) cyanocobalamin (vitamin B-12) 1,000 mcg PO DAILY #30 caps 04/25/25 1,000 mcg capsule mupirocin 2 % topical ointment 1 appl topical TID #22 grams 05/01/25 fluticasone propionate 50 1 spray intranasal DAILY #16 grams 05/03/25 mcg/actuation nasal spray,suspension (Flonase Allergy Relief) rosuvastatin 40 mg tablet 40 mg PO DAILY #90 tabs 05/21/25 sacubitril 24 mg-valsartan 26 mg 1 tab PO BID #60 tabs 05/21/25 tablet (Entresto) finasteride 5 mg tablet 5 mg PO DAILY 90 days #90 tabs 06/27/25 Allergies Allergy/AdvReac Type Severity Reaction Status Date / Time BERNABE Inhibitors (BERNABE Allergy Intermediate DEPRESSION Verified 08/06/25 10:00 INHIBITORS) latex (LATEX) Allergy Intermediate RASH Verified 08/06/25 10:00 terazosin Allergy Intermediate hives, Verified 08/06/25 10:00 swollen lips and hoarseness pravastatin (Pravachol) Allergy Unknown unknown Verified 08/06/25 10:00 bee pollen (bee stings) AdvReac Severe Anaphylaxis Verified 08/06/25 10:00 Beta-Blockers AdvReac Intermediate DECREASED Verified 08/06/25 10:00 (Beta-Adrenergic Bloc HR, (BETA-BLOCKERS DEPRESSION (BETA-ADRENERGIC BLOC) amoxicillin Allergy Intermediate hives, Uncoded 07/03/25 09:12 swollen lips, and hoarseness cephlex: levofloxacin Allergy Intermediate hives, Uncoded 07/03/25 09:12 swollen lips, and hoarseness clindomycin Allergy Intermediate hives, Uncoded 07/03/25 09:12 swollen lips, and hoarseness PMFSH Past Medical History Medical History SOB (shortness of breath) on exertion Acute bacterial sinusitis Impetigo Multiple pulmonary nodules Decreased diffusion capacity Dyspnea Diabetes mellitus with coincident hypertension Bruised ribs Cellulitis of nose Right leg pain Cough Hyperlipidemia associated with type 2 diabetes mellitus Diabetes mellitus Ischemic cardiomyopathy Pacemaker (~2021) Bradycardia (~2021) History of COVID-19 BPH (benign prostatic hyperplasia) Hypertension Obesity Tubular adenoma of colon COVID-19 vaccine administered History of colon cancer (~2010) PVC (premature ventricular contraction) SVT (supraventricular tachycardia) CAD (coronary artery disease) Surgical History S/P cardiac cath History of pacemaker (~2021) History of coronary artery bypass graft x 3 (~1998) History of hernia repair (~2012) History of colonoscopy History of left knee surgery (~2003) History of right knee surgery History of colostomy (~2010) History of partial colectomy (~2011) History of tonsillectomy History of repair of rotator cuff History of cataract surgery (~2013) History of cardiac cath History of colostomy reversal (~2011) Family History Family History Father Cancer, colon Mother Cancer of breast Cancer of lung Sister Cancer Social History Social History Household Members: Spouse Housing: House Are you a primary medicare sales representative to a significant other at home: No Do you presently have visiting nurse or other home services: No Alcohol intake: current Alcohol intake frequency: 0-2 drinks per day Comment: 4x a week 2 drinks Patient Tobacco Use Status: Never used Tobacco Tobacco use type: Cigarette e-Cigarette/Vaping Use: Never Used Second Hand Smoke Exposure: No service: No Current occupational status: retired Cognitive needs: No Hearing needs: No Vision needs: Yes (glasses) Physical Exam ED Vital Signs: Vital Signs - 24 hr 08/06/25 09:59 08/06/25 13:34 Temperature 98.6 F 97 F Pulse Rate 60 60 Respiratory Rate 16 16 Blood Pressure 129/62 149/83 H Pulse Oximetry 97 99 Oxygen Delivery Method Room Air Room Air BMI result Body Mass Index 29.6 Course Course Course Narrative: This is a Rapid Medical Examination (RME) performed by Chandni Rios PA-C in triage. Full HPI, ROS, assessment and treatment plan per primary provider in the Main ED. Hx: 80 yo M here for eval of R wrist pain/swelling s/p FOOSH yesterday. slipped on ice, put his right hand/wrist out to catch himself. no head strike, no loc, no thinners. having continued right wrist pain. Plan: imaging Reevaluation(s) Reevaluation #1: this is a duplicate note, please see brady singh's completed note regarding patient's visit on 08/06/25 Medications Administered Discontinued Medications Generic Name Dose Route Start Last Admin Trade Name Freq PRN Reason Stop Dose Admin Acetaminophen 975 mg 08/06/25 12:40 08/06/25 13:07 Acetaminophen 325 Mg Tablet PO 08/06/25 12:41 975 mg ONCE ONE Administration Ketorolac Tromethamine 15 mg 08/06/25 12:40 08/06/25 13:06 Ketorolac Tromethamine 15 Mg/Ml Vial IM 08/06/25 12:41 15 mg ONCE ONE Administration Discharge Plan Discharge Clinical Impression: Distal radial fracture Patient Disposition: Home, Self-Care Additional Instructions: Your X-ray today shows a distal radial fracture. Your wrist was placed in a thumb spica fiberglass splint to protect the injury and keep it stable while it heals. At home: Keep the splint clean, dry, and in place at all times unless directed otherwise. Do not remove or alter the splint. Elevate the arm above heart level as much as possible for the next 48?72 hours to reduce swelling. You may apply ice over the splint (with a barrier, 15?20 minutes at a time) for pain and swelling. Gently move your fingers several times a day to prevent stiffness, but do not move the wrist or thumb inside the splint. Take 500 mg of Tylenol, and 400 mg of ibuprofen every 6 hours for pain management. Splint care: Keep the fiberglass splint dry?cover it with plastic when showering and avoid submerging it in water. Do not place objects inside the splint to scratch, and do not apply lotions or powders under it. Check your fingers daily for increasing swelling, color changes, numbness, tingling, or worsening pain. Follow up: Call the orthopedic office within the next 1?3 days to arrange close follow-up and definitive management. This is important to ensure proper healing and alignment. Return to the ER immediately if you develop increasing or severe pain not controlled with medication, numbness or tingling, fingers becoming pale/blue or cold, inability to move your fingers, significant swelling that feels tight, splint damage or loosening, or any new or worsening symptoms. Prescriptions: No Action (DME) blood-glucose meter [OneTouch Verio Meter] [facility] [place] See Rx Instructions .ROUTE .MEDSUPPLY Qty: 1 0RF Rx Instructions: to check blood sugars once a day (DME) lancets [OneTouch Delica Lancets] 33 gauge [facility] [place] See Rx Instructions .ROUTE .MEDSUPPLY Qty: 100 8RF Rx Instructions: to check blood sugars once a day nitroglycerin 0.4 mg tablet, sublingual 0.4 mg sublingual Q5M PRN (Reason: Chest Pain) Qty: 25 1RF Rx Instructions: do not exceed 3 doses per episode (DME) OneTouch Verio test strips Strip See Rx Instructions .ROUTE .MEDSUPPLY Qty: 100 2RF Rx Instructions: 1 Strip Once a Day albuterol sulfate 90 mcg/actuation HFA aerosol inhaler 2 puff inhalation Q4-6H PRN (Reason: shortness of breath or wheezing) Qty: 1 6RF mupirocin 2 % ointment 1 appl topical TID Qty: 22 0RF fluticasone propionate [Flonase Allergy Relief] 50 mcg/actuation spray,suspension 1 spray intranasal DAILY Qty: 16 0RF Rx Instructions: administer into each nostril rosuvastatin 40 mg tablet 40 mg PO DAILY Qty: 90 3RF finasteride 5 mg tablet 5 mg PO DAILY 90 Days Qty: 90 1RF aspirin [Adult Low Dose Aspirin] 81 mg tablet,delayed release (DR/EC) 81 mg PO DAILY diphenhydramine HCl [Benadryl Allergy] 25 mg tablet 25 mg PO TID PRN (Reason: Anxiety) ezetimibe [Zetia] 10 mg tablet 10 mg PO DAILY bisoprolol fumarate 5 mg tablet 5 mg PO DAILY sacubitril-valsartan [Entresto] 24-26 mg tablet 1 tab PO BID Qty: 60 5RF cyanocobalamin (vitamin B-12) 1,000 mcg capsule 1,000 mcg PO DAILY Qty: 30 3RF (DME) Dexcom G7 Sensor Device See Rx Instructions .Route Qty: 6 3RF Rx Instructions: As directed (DME) Dexcom G7 Medical Insurance Claims Processor [facility] See Rx Instructions .Route Qty: 1 0RF Rx Instructions: As directed metformin 500 mg tablet 500 mg PO BID [place]: [facility] [place] [place]Provider Group] Referral Note: Comminuted, minimally displaced distal radial fracture of the right hand Discharge Date/Time: 08/06/25 13:36 Print Language: Japanese
--- NOTE | 2025-08-06 13:01 | ED.FALL ---
HPI - Fall General Chief Complaint: Fall Stated Complaint: wrist injury Time Seen by Provider: 08/06/25 11:11 Source: patient, family ( at bedside corroborating history), RN notes reviewed and old records reviewed Mode of arrival: ambulatory Limitations: no limitations History of Present Illness ED Provider: KEYON Meeks HPI Narrative: 80-year-old male with medical history of T2DM, pancreatic atrophy, cardiomyopathy, CAD, HTN, HLD, BPH, history of colon cancer 2010, presents to the ED due to mechanical fall that occurred last night after slipping on the ice and falling onto an outstretched right hand. Patient denies head strike or loss of consciousness, not on anticoagulation. Patient immediately felt pain of his right wrist. Patient woke up this morning with increased pain, and swelling to the area. Patient states he took a dose of Tylenol around 6:00 a.m. this morning. Denies chest pain, shortness of breath, nausea, vomiting, headache, visual changes, diarrhea, urinary symptoms Related Data Home Medications ?Medication ?Instructions ?Recorded ?Confirmed aspirin 81 mg tablet,delayed 81 mg PO DAILY 05/22/20 06/11/25 release (Adult Low Dose Aspirin) diphenhydramine HCl 25 mg tablet 25 mg PO TID PRN Anxiety 05/22/20 06/11/25 (Benadryl Allergy) ezetimibe 10 mg tablet (Zetia) 10 mg PO DAILY 12/28/23 06/11/25 bisoprolol fumarate 5 mg tablet 5 mg PO DAILY 05/21/25 06/11/25 metformin 500 mg tablet 500 mg PO BID 07/03/25 Previous Rx's ?Medication ?Instructions ?Recorded blood-glucose meter (OneTouch #1 ea 10/27/20 Verio Meter) lancets 33 gauge (OneTouch Delica #100 ea 10/30/20 Lancets) nitroglycerin 0.4 mg sublingual 0.4 mg sublingual Q5M PRN Chest 11/22/23 tablet Pain #25 tabs blood sugar diagnostic (OneTouch #100 ea 03/15/24 Verio test strips) albuterol sulfate 90 mcg/actuation 2 puff inhalation Q4-6H PRN 09/25/24 aerosol inhaler shortness of breath or wheezing #1 ea blood-glucose sensor (Dexcom G7 #6 ea 04/25/25 Sensor device) blood-glucose,finisher denture,cont #1 ea 04/25/25 (Dexcom G7 Traffic Operations Engineer) cyanocobalamin (vitamin B-12) 1,000 mcg PO DAILY #30 caps 04/25/25 1,000 mcg capsule mupirocin 2 % topical ointment 1 appl topical TID #22 grams 05/01/25 fluticasone propionate 50 1 spray intranasal DAILY #16 grams 05/03/25 mcg/actuation nasal spray,suspension (Flonase Allergy Relief) rosuvastatin 40 mg tablet 40 mg PO DAILY #90 tabs 05/21/25 sacubitril 24 mg-valsartan 26 mg 1 tab PO BID #60 tabs 05/21/25 tablet (Entresto) finasteride 5 mg tablet 5 mg PO DAILY 90 days #90 tabs 06/27/25 Allergies Allergy/AdvReac Type Severity Reaction Status Date / Time BERNABE Inhibitors (BERNABE Allergy Intermediate DEPRESSION Verified 08/06/25 10:00 INHIBITORS) latex (LATEX) Allergy Intermediate RASH Verified 08/06/25 10:00 terazosin Allergy Intermediate hives, Verified 08/06/25 10:00 swollen lips and hoarseness pravastatin (Pravachol) Allergy Unknown unknown Verified 08/06/25 10:00 bee pollen (bee stings) AdvReac Severe Anaphylaxis Verified 08/06/25 10:00 Beta-Blockers AdvReac Intermediate DECREASED Verified 08/06/25 10:00 (Beta-Adrenergic Bloc HR, (BETA-BLOCKERS DEPRESSION (BETA-ADRENERGIC BLOC) amoxicillin Allergy Intermediate hives, Uncoded 07/03/25 09:12 swollen lips, and hoarseness cephlex: levofloxacin Allergy Intermediate hives, Uncoded 07/03/25 09:12 swollen lips, and hoarseness clindomycin Allergy Intermediate hives, Uncoded 07/03/25 09:12 swollen lips, and hoarseness Review of Systems Review of Systems: Yes all other systems are reviewed and are negative PMFSH Past Medical History Attestation statement: The following information was validated with the patient. Source: old records reviewed and nursing notes reviewed Medical History SOB (shortness of breath) on exertion Acute bacterial sinusitis Impetigo Multiple pulmonary nodules Decreased diffusion capacity Dyspnea Diabetes mellitus with coincident hypertension Bruised ribs Cellulitis of nose Right leg pain Cough Hyperlipidemia associated with type 2 diabetes mellitus Diabetes mellitus Ischemic cardiomyopathy Pacemaker (~2021) Bradycardia (~2021) History of COVID-19 BPH (benign prostatic hyperplasia) Hypertension Obesity Tubular adenoma of colon COVID-19 vaccine administered History of colon cancer (~2010) PVC (premature ventricular contraction) SVT (supraventricular tachycardia) CAD (coronary artery disease) Surgical History S/P cardiac cath History of pacemaker (~2021) History of coronary artery bypass graft x 3 (~1998) History of hernia repair (~2012) History of colonoscopy History of left knee surgery (~2003) History of right knee surgery History of colostomy (~2010) History of partial colectomy (~2011) History of tonsillectomy History of repair of rotator cuff History of cataract surgery (~2013) History of cardiac cath History of colostomy reversal (~2011) Family History Family History Father Cancer, colon Mother Cancer of breast Cancer of lung Sister Cancer Social History Social History Household Members: Spouse Housing: House Are you a primary health care liaison to a significant other at home: No Do you presently have visiting nurse or other home services: No Alcohol intake: current Alcohol intake frequency: 0-2 drinks per day Comment: 4x a week 2 drinks Patient Tobacco Use Status: Never used Tobacco Tobacco use type: Cigarette e-Cigarette/Vaping Use: Never Used Second Hand Smoke Exposure: No Advance Directives: No Advance Directives Information Provided: Yes service: No Current occupational status: retired Cognitive needs: No Hearing needs: No Vision needs: Yes (glasses) Physical Exam Vital Signs: Vital Signs: Last Vital Signs Temp 98.6 F 08/06/25 09:59 Pulse 60 08/06/25 09:59 Resp 16 08/06/25 09:59 BP 129/62 08/06/25 09:59 Pulse Ox 97 08/06/25 09:59 O2 Del Method Room Air 08/06/25 09:59 BMI result Body Mass Index 29.6 GENERAL APPEARANCE: ?AxOx4, generally well-appearing, no acute distress. HEENT: ?NC, AT. MMM. EOMI, clear conjunctiva, oropharynx clear. NECK: ?Supple without lymphadenopathy.? No stiffness or restricted ROM. HEART:? Normal rate and regular rhythm, normal S1/S2, no m/r/g LUNGS:? CTAB, moving air well. No crackles or wheezes are heard. EXTREMITIES: ?Without cyanosis, clubbing or edema. TTP of radial aspect of R wrist, radial pulses 2+, SILT, appropriate capillary refill time, mild ecchymosis and edema to the dorsal, radial aspect of the hand, the limb is neurovascularly intact and well perfused NEUROLOGICAL: ?Grossly nonfocal. Alert and oriented, moving all 4 extremities. Observed to ambulate with normal gait. Skin: ?Warm and dry without any rash. Medical Decision Making Medical Decision Making MDM Narrative: 80-year-old male with medical history of T2DM, pancreatic atrophy, cardiomyopathy, CAD, HTN, HLD, BPH, history of colon cancer 2010, presents to the ED due to mechanical fall that occurred last night after slipping on the ice and falling onto an outstretched right hand. Patient denies head strike or loss of consciousness, not on anticoagulation. Patient immediately felt pain of his right wrist. Patient woke up this morning with increased pain, and swelling to the area. Patient states he took a dose of Tylenol around 6:00 a.m. this morning. Plan: XR R hand, XR R wrist ordered from triage -patient medicated with 15 mg IM Toradol, 975 p.o. Tylenol for pain management XR imaging reveals a comminuted, minimally displaced intra-articular distal radial fracture with dorsal cell soft tissue swelling I reached out to orthopedic ELIANE Fisher with the plan for thumb spica splint and follow up with [facility] ortho, she agreed to this plan. Patient was placed in a thumb Spica splint, and medicated with 15 mg IM Toradol, 975 p.o. Tylenol for pain. The patient does have tenderness to palpation over the radial aspect of the distal wrist into DIP of the thumb, full ROM intact of the thumb and fingers, reduced ROM of the wrist due to pain from distal radial fracture I have placed referral to [facility] orthopedics however patient states he is established with [facility] and will decide who he will reach out to for follow up. I encouraged the patient to follow up with his primary care doctor as well, and educated him and his on strict ED return precautions. Patient is well enough to go home for self-care today, and is in agreement with the plan. Differential Diagnosis Differential Diagnoses: The differential diagnosis associated with the presentation includes Radial fracture Ulnar fracture Scaphoid fracture Wrist sprain Admission/Observation Consideration of admission/observation: Escalation of care including admission/observation considered Independent Interpretation I performed an independent interpretation of an: Plain X-Ray Interpretation: I personally interpreted the XR R hand which revealed a comminuted distal radial fracture, I agree with the radiologist's interpretation I personally interpreted the XR R wrist which again reveals a comminuted distal radial fracture, I agree with the radiologist's interpretation Radiology Impression Discussion of test interpretation with radiology: I have reviewed the radiologist's reading. Radiologist Impression: XR R hand FINDINGS: Comminuted intra-articular nondisplaced fracture of the distal radius again noted. No additional fracture or dislocation. 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 Mild negative ulnar variance. Moderate arthritis in the first MCP joint, with lesser changes in the second and third MCPs. Significant degenerative arthritis seen throughout the interphalangeal joints, most significant in the DIP joints of the second through fifth digits. There is dorsal soft tissue swelling of the wrist. XR/XR hand RT min 3V IMPRESSION: 1. Comminuted, nondisplaced, intra-articular distal radial fracture. Dorsal soft tissue swelling. 2. No additional fractures of the right hand or wrist identified. 3. Osteoarthritic changes as discussed. Electronically signed by: Andres Chandler MD 08/06/2025 10:26 AM EST Dictated By: Andres Chandler MD Signed By: <Electronically signed by Andres Chandler MD in OV> 08/06/25 1026 XR R wrist FINDINGS: There is an intra-articular comminuted nondisplaced fracture of the distal radius. There is no articular step off of the intra-articular component. Fracture lines extend to involve the radial styloid. Mild buckling of the dorsal cortex present. Scaphoid appears intact. No abnormal lunate tilt. No additional fracture is evident. 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 Moderate arthritis in the STT joints. Mild negative ulnar variance. There is marked dorsal soft tissue swelling. XR/XR wrist RT w scaphoid IMPRESSION: Comminuted intra-articular distal radial fracture, with minimal displacement. There is no articular step off. Dorsal soft tissue swelling. Electronically signed by: Anrdes Chandler MD 08/06/2025 10:[address] [facility] Dictated By: Andres Chandler MD Signed By: <Electronically signed by Andres Chandler MD in OV> 08/06/25 1023 Independent Historian Clinical information obtained from an independent historian. History obtained from or confirmed by: Spouse ( at bedside corroborating history) External Record Review External record reviewed: Inpatient record, Office record, Outpatient record and Prior outpatient labs Prescription Management I considered prescription management with: Antibiotic I considered antibiotics however this is a closed fracture, no indication for antibiotics at this time Chronic Conditions Patient?s care impacted by: Diabetes, Hypertension and Cancer (History of colon cancer in 2010) Discharge Plan Discharge Clinical Impression: Distal radial fracture Patient Disposition: Home, Self-Care Additional Instructions: Your X-ray today shows a distal radial fracture. Your wrist was placed in a thumb spica fiberglass splint to protect the injury and keep it stable while it heals. At home: Keep the splint clean, dry, and in place at all times unless directed otherwise. Do not remove or alter the splint. Elevate the arm above heart level as much as possible for the next 48?72 hours to reduce swelling. You may apply ice over the splint (with a barrier, 15?20 minutes at a time) for pain and swelling. Gently move your fingers several times a day to prevent stiffness, but do not move the wrist or thumb inside the splint. Take 500 mg of Tylenol, and 400 mg of ibuprofen every 6 hours for pain management. Splint care: Keep the fiberglass splint dry?cover it with plastic when showering and avoid submerging it in water. Do not place objects inside the splint to scratch, and do not apply lotions or powders under it. Check your fingers daily for increasing swelling, color changes, numbness, tingling, or worsening pain. Follow up: Call the orthopedic office within the next 1?3 days to arrange close follow-up and definitive management. This is important to ensure proper healing and alignment. Return to the ER immediately if you develop increasing or severe pain not controlled with medication, numbness or tingling, fingers becoming pale/blue or cold, inability to move your fingers, significant swelling that feels tight, splint damage or loosening, or any new or worsening symptoms. Prescriptions: No Action (DME) blood-glucose meter [OneTouch Verio Meter] [facility] See Rx Instructions .ROUTE .MEDSUPPLY Qty: 1 0RF Rx Instructions: to check blood sugars once a day (DME) lancets [OneTouch Delica Lancets] 33 gauge misc See Rx Instructions .ROUTE .MEDSUPPLY Qty: 100 8RF Rx Instructions: to check blood sugars once a day nitroglycerin 0.4 mg tablet, sublingual 0.4 mg sublingual Q5M PRN (Reason: Chest Pain) Qty: 25 1RF Rx Instructions: do not exceed 3 doses per episode (DME) OneTouch Verio test strips Strip See Rx Instructions .ROUTE .MEDSUPPLY Qty: 100 2RF Rx Instructions: 1 Strip Once a Day albuterol sulfate 90 mcg/actuation HFA aerosol inhaler 2 puff inhalation Q4-6H PRN (Reason: shortness of breath or wheezing) Qty: 1 6RF mupirocin 2 % ointment 1 appl topical TID Qty: 22 0RF fluticasone propionate [Flonase Allergy Relief] 50 mcg/actuation spray,suspension 1 spray intranasal DAILY Qty: 16 0RF Rx Instructions: administer into each nostril rosuvastatin 40 mg tablet 40 mg PO DAILY Qty: 90 3RF finasteride 5 mg tablet 5 mg PO DAILY 90 Days Qty: 90 1RF aspirin [Adult Low Dose Aspirin] 81 mg tablet,delayed release (DR/EC) 81 mg PO DAILY diphenhydramine HCl [Benadryl Allergy] 25 mg tablet 25 mg PO TID PRN (Reason: Anxiety) ezetimibe [Zetia] 10 mg tablet 10 mg PO DAILY bisoprolol fumarate 5 mg tablet 5 mg PO DAILY sacubitril-valsartan [Entresto] 24-26 mg tablet 1 tab PO BID Qty: 60 5RF cyanocobalamin (vitamin B-12) 1,000 mcg capsule 1,000 mcg PO DAILY Qty: 30 3RF (DME) Dexcom G7 Sensor Device See Rx Instructions .Route Qty: 6 3RF Rx Instructions: As directed (DME) Dexcom G7 Traffic Operations Engineer Misc See Rx Instructions .Route Qty: 1 0RF Rx Instructions: As directed metformin 500 mg tablet 500 mg PO BID Referrals: [facility] Orthopedic Surgeons [Provider Group] Referral Note: Comminuted, minimally displaced distal radial fracture of the right hand Print Language: Guamanian
[2025-08-06 13:34] VITALS: BP 149/83; PULSE 60; RESP 16; TEMP 36.1; O2SAT 99
--- OUTSIDE RECORDS SUMMARY | 2025-08-06 15:44 | XMS_ITS | Patient Health Record ---
Author Organization Ivan Llanes III, MD Address [address] [place] [address] Care Team Providers Care System Controller Name Role Phone ISMAEL RIDER Primary [...] Problem Status W/U Status Risk Notes Problem [id number] Obesity (E66.9) Active confirmed He has lost 3 pounds. We discussed diet and nutrition today. We reviewed his weight loss strategy. We made a plan to lose weight at a rate of one half of a pound per week. Problem [id number] BPH (benign prostatic hyperplasia) (N40.0) Active confirmed He is taking 3 medications arises from sleep 4 times a night. He will follow up with primary care and urology. Problem [id number] Osteoarthritis of multiple joints, unspecified osteoarthritis type (M15.9) Active confirmed He has mild symptoms arthritis in his knees. He is taking ibuprofen with good relief. Problem 841289265 Erythrocytosis (D75.1) Active confirmed Numerous recent CBC determinations show his hematocrit to be normal. Problem [id number] Coronary artery disease involving [place] coronary artery without angina pectoris, unspecified whether [place] or transplanted heart (I25.10) Active confirmed Since his las t visit he has had no episodes of angina with exertion or at rest. There is no need to change his regimen at this time. Problem 987570374 Malignant neoplasm of colon, unspecified part of colon (C18.9) Active confirmed There is no sign of disease recurrence or of a new primary tumor. He will continue with surveillance and periodic colonoscopies.He will return to this office on an as-needed basis. Problem [id number] Hyperlipidemia type II (E78.01) Active confirmed His [...] Date Provider Diagnosis Ivan Llanes III, MD [address] [place] [address] [place] [address] 04/15/2025 Ivan Llanes Malignant neoplasm o f colon, unspecified part of colon C18.9 ; BPH (benign prostatic hyperplasia) N40.0 ; Osteoarthritis of multiple joints, unspecified osteoarthritis type M15.9 and Coronary artery disease involving [place] coronary artery without angina pectoris, unspecified whether [place] or transplanted heart I25.10 Assessments Encounter [...] good relief. 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
--- OUTSIDE RECORDS SUMMARY | 2025-08-06 15:44 | XMS_ITS | Encounter Summary ---
Author Organization [facility] Address [address] [place] [address] Phone Care Team Providers Care Ampoule Sealer Name Role Phone Mckinley Choi MD Primary Care Provider [phone] Christie Floyd MD Primary Care Provider [phone] Mckinley Choi MD Primary Care Provider [phone] Reason for Referral * MRI/CAT Scan - Closed Specialty Diagnoses / Procedures Referred By Bari nicole Referred To Contact Radiology Diagnoses Atherosclerosis of [place] coronary artery of [place] heart without angina pectoris Procedures NC Myocardial Perfusion Stress Single NC Myocardial Perfusion Exercise Multiple Wandy Bridges NP Phone: tel: [email or web address] Referral ID Status Reason Start Date Expiration Date Visits Re quested Visits Authorized [id number] Closed 10/21/2017 10/21/2018 1 1 Encounter Details Date Type Department Care Team (Latest Contact Info) Description 11/02/2017 Ancillary Orders [facility] [address], [address] [place] [address] Wandy Bridges NP [address] [place], [place] [phone] [email or web address] Atherosclerosis of [place] coronary artery of [place] heart without angina pectoris Social History Tobacco [...] reviewed with Dr. Case. Wandy Bridges MANAGER DAIRY . Stress Function Comments Post-stress ejection fraction [...] ventricular perfusion is normal. us Wandy Bridges MANAGER DAIRY CV NM CARDIAC Final Re sult documented in this encounter Visit Diagnoses Diagnosis Atherosclerosis of [place] coronary artery of [place] heart without angina pectoris Atherosclerosis of [place] coronary artery of [place] heart without angina pectoris documented in this encounter Care Teams Ampoule Sealer Relationship Specialty Start Date End Date Mckinley Choi MD [address] [place] [address] Dr Mary [address] [place] [address] PCP - General 05/26/17 12/08/17 Christie Floyd MD [address] [place] [address] [address] [place] [phone] PCP - General Internal Medicine 12/09/17 01/08/18 Mckinley Choi MD [address] [place] [address] PCP - General Internal Medicine 01/09/18 documented as of this encounter Additional Source Comments The information contained in this document represents components of the legal health record. It is not the complete legal health record.[facility]
--- OUTSIDE RECORDS SUMMARY | 2025-08-06 15:44 | XMS_ITS | Clinical Summary ---
Author Organization [facility] Address [address] [address] Phone Care Team Providers Care Corrugated Fastener Driver Name Role Phone Mckinley Choi MD Primary Care Provider Allergies Active Allergy Reactions Criticality Noted Date Comments Amoxicillin Anaphylaxis,Hives,[facility] 12/09/2017 facial Beta-Blockers (Beta-Adrenergic Blocking Agts) Anxiety Low 10/21/2017 Clindamycin Hcl Anaphylaxis,Hives,[facility] 12/09/2017 Swelling for the lips Levofloxacin Anaphylaxis,Hives,[facility] 12/09/2017 Swelling of the lips Medications [...] recently seen in the emergency room at [facility] for symptomatic PSVT with HR 180's. [...] hyperplasia 07/06/2017 Coronary artery disease invo lving [place] coronary artery of [place] heart without angina pectoris 07/06/2017 Overview (12/09/2017): [...] PM EST): He was recently admitted to [facility] this past June with an episode [...] PM EST): Normal LFTs on his admission [facility] in June --He will continue his [...] file Insurance MEDICARE PART A & B [employer] MEDEX SUPPLEMENT MEDICARE PART A & B [employer] MEDEX SUPPLEMENT MEDICARE PART A & B [employer] MEDEX SUPPLEMENT [place] MEDICARE PART A & B [employer] MEDEX SUPPLEMENT MEDICARE PART A & B [facility] MEDEX SUPPLEMENT MEDICARE PART A & B [employer] MEDEX SUPPLEMENT MEDICARE PART A & B [employer] MEDEX SUPPLEMENT MEDICARE PART A & B [employer] MEDEX SUPPLEMENT MEDICARE PART A & B [employer] MEDEX SUPPLEMENT Care Teams Corrugated Fastener Driver Relationship Specialty Start Date End Date Mckinley Choi MD NPI: [id number] [place] [address] [place] [address] PCP - General Internal Medicine 01/09/18 Additional Source Comments The information contained in this document represents components of the legal health record. It is not the complete legal health record.[facility]
--- OUTSIDE RECORDS SUMMARY | 2025-08-06 15:45 | XMS_ITS | Patient Health Record ---
Author Organization [facility] Address [address] [place] [id number] Care Team Providers Care Electronic News Gathering Editor Name Role Phone Steph MARK, Mckinley Primary Care Provider Ivan Powell Unavailable [phone] Allergies Allergen (clinical drug ingredient) Drug/Non Drug [...] r of rehabilitation and disability studies at [facility] Notes: He does not smoke and drinks only occasional beer Problems Problem Type SNOMED Code ICD Code Onset Dates Problem Status W/U Status Risk Notes Problem Digestive system symptom (918218597) Other symptoms involving digestive system (787.99) Active confirmed Problem Right lower quadrant pain (616694325) Abdominal pain, right lower quadrant (789.03) Active confirmed Problem Left lower quadrant pain (351293674) Abdominal pain, left lower quadrant (789.04) Active confirmed Problem Epigastric pain (78775124) Abdominal pain, epigastric (789.06) Active confirmed Problem Abnormal findings diagnostic imaging of liver and biliary tract (710426666) Nonspecific abnormal findings on radiological and other examination of biliary tract (793.3) Active confirmed Problem Family history of malignant neoplasm of gastrointestinal tract (211660904) Family history of malignant neoplasm of gastrointestinal tract (V16.0) Active confirmed Plan Of Treatment Pending Test Test Name Order Date ENDOMYSIAL IGA 07/22/2011 TRANSGLUTAMINASE AB IGA 07/22/2011 TRANSGLUTAMINASE AB IGG 07/22/2011 Future Test Test Name Order Date COLONOSCOPY 07/22/2011 Insurance Providers Payer Name Payer Address Payer Phone Subscriber Number Group Number Insured Name Patient Relationship to Insured Coverage Start Date Coverage End Date [facility] [address] [place] [address] [id number] ROXY CARRASCO Self - patient is [...]
== END 2025-08-06 13:36 | disposition home or self-care (01) ==
PROVIDERS: Emergency Provider Emergency Medicine; PCP Internal Medicine
DX: S52.571A Other intraarticular fracture of lower end of right radius, initial encounter for closed fracture (principal); W00.0XXA Fall on same level due to ice and snow, initial encounter; E11.9 Type 2 diabetes mellitus without complications; I10 Essential (primary) hypertension; E78.5 Hyperlipidemia, unspecified; Z95.0 Presence of cardiac pacemaker; Z79.82 Long term (current) use of aspirin; Z79.84 Long term (current) use of oral hypoglycemic drugs; Z79.899 Other long term (current) drug therapy; Y93.89 Activity, other specified; Y92.014 Private driveway to single-family (private) house as the place of occurrence of the external cause; Y99.9 Unspecified external cause status
CPT/HCPCS: 29125; 73110; 73130; 96372; 99283; 99284; J1885

== ENCOUNTER → 2025-08-06 10:00 | Outpatient (BNV) | payer MEDICARE, SELFPAY ==
[2023-03-31 07:35] VITALS: BP 100/58; BP 126/68
[2023-07-20 15:41] VITALS: BP 90/50; BMI 30.9
== END ==
PROVIDERS: PCP Internal Medicine; Visit Provider Radiology Diagnostic Radiology
DX: S52.354D Nondisplaced comminuted fracture of shaft of radius, right arm, subsequent encounter for closed fracture with routine healing (principal); S52.351D Displaced comminuted fracture of shaft of radius, right arm, subsequent encounter for closed fracture with routine healing; M79.89 Other specified soft tissue disorders; Z04.3 Encounter for examination and observation following other accident
CPT/HCPCS: 73110; 73130

== ENCOUNTER 2025-08-07 10:25 | Outpatient (AMB) | payer MEDICARE, SELFPAY ==
[2023-03-31 07:35] VITALS: BP 100/58; BP 126/68
[2023-07-20 15:41] VITALS: BP 90/50; BMI 30.9
--- OUTSIDE RECORDS SUMMARY | 2024-04-06 06:00 | XMS_ITS ---
Author Organization Ivan Llanes III, MD Address [address] [address] Care Team Providers Care Retail Cosmetics Sales Beauty Advisor Name Role Phone ISMAEL RIDER Primary Care [...] Date Provider Diagnosis Ivan Llanes III, MD [address] [place] [address] [address] JAEGER ELDA, [place] [address] 04/06/2024 Ivan Llanes Malignant neoplasm o f colon, unspecified part of colon C18.9 ; BPH (benign prostatic hyperplasia) N40.0 ; Osteoarthritis of multiple joints, unspecified osteoarthritis type M15.9 ; Coronary artery disease involving [place] coronary artery without angina pectoris, unspecified whether [place] or transplanted heart I25.10 and Obesity E66.9 [...] good relief. 04/06/2024 Coronary artery disease involving [place] coronary artery without angina pectoris, unspecified whether [place] or transplanted heart (ICD-10 - I25.10) Since [...] * Kathi CARRASCO: 7 (79 yo M)Acc No.[id number]:04/06/2024 Progress Notes Patient: Kartik Crespo Provider: Elizabeth Llanes MD :1945 A ge:79 Y S ex:Male Date:04/06/2024 Address: [address], 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 He was born [place], [place]. * Medications: T akingNitroglycerin 0.4 MG [...] 4 . C oronary artery disease involving [place] coronary artery without angina pectoris, unspecified whether [place] or transplanted heart - I25.10, Since his [...] 04/06/2024 Generated for Printi ng/Faalyseg/eTransmitting on: 1 11:39 AM EST History and Physical Notes * [...]
--- OUTSIDE RECORDS SUMMARY | 2025-04-04 07:30 | XMS_ITS ---
Author Organization Ivan Llanes III, MD Address [address] [place] [address] [place] [address] Care Team Providers Care Notch Grinder Name Role Phone ISMAEL RIDER Primary Care Provider Dr. Ivan Llanes III Unavailable [phone] REASON FOR VISIT Follow up Encounters Encounter Location Date Provider Diagnosis Ivan Llanes III, MD [address] [place] [address] [place] [address] 04/04/2025 Ivan Llanes Plan Of Treatment No Information Progress Notes * Kartik CARRASCODOB: 7 (80 yo M)Acc No.[id number]:04/04/2025 Progress Notes Patient: Kartik PALACIO Provider: Elizabeth Llanes MD :1945 A ge:80 Y S ex:Male Date:04/04/2025 Address:[address] [id number] Pcp:ISMAEL RIDER Subjective: * Chief Complaints: * [...] 04/04/2025 Generated for Printi ng/Faalyseg/eTransmitting on: 1 11:39 AM EST
--- OUTSIDE RECORDS SUMMARY | 2025-04-15 06:00 | XMS_ITS ---
Author Organization Ivan Llanes III, MD Address [address] [facility] [place] [address] Care Team Providers Care Speech Language Pathologist Assistant Name Role Phone ISMAEL RIDER Primary Care Provider Dr. Ivan Llanes III Unavailable Allergies Allergen (clinical drug ingredient) Drug/Non Drug Allergy documented on EMR Reaction Allergy Type Onset Date Status Substance with beta adrenergic receptor antagonist mechanism of action (substance) Beta Adrenergic Blockers suncope Drug Allergy Active Tape burn Allergy Active Bee Sting Unknown Allergy Active REASON FOR VISIT History colon cancer, Coronary artery disease, Benign prostatic hypertrophy Medications Medication SIG (Take, Route, Frequency, Duration) Notes Start Date End Date Status Zetia 10 MG 1 tablet Orally Once a day Active Aspirin Adult Low Strength 81 MG 1 tablet Orally Once a day Active Bisoprolol Fumarate 5 MG 1/2 Tablet Oral ly Once a day Active Rosuvastatin Calcium 40 MG Oral Active Finasteride 5 MG Oral Act audra Nitroglycerin 0.4 MG as directed Sublingual PRN Active Benadryl PRN Active Social History Tobacco Use: Social History Observation Description Date Details (start date - stop date) Never Smoker NA - NA Tobacco Use/Smoking Question Answer Notes Patient is a nonsmoker Additional Findings: Tobacco Non-User Aggressive non-smoker Vital Signs Temperature 98.0 degrees Fahrenheit 04/15/20 25 Blood pressure systolic 120 mm Hg 04/15/20 25 Blood pressure diastolic 68 mm Hg 025 Heart Rate 68 /min 04/15/2025 Height 69 in 04/15/2025 Weight 199 lbs 04/15/2025 BMI 29.38 kg/m2 04/15/2025 Encounters Encounter Location Date Provider Diagnosis Ivan Llanes III, MD [address] [place] [address] [place] [address] 04/15/2025 Ivan Llanes Malignant neoplasm o f colon, unspecified part of colon C18.9 ; BPH (benign prostatic hyperplasia) N40.0 ; Osteoarthritis of multiple joints, unspecified osteoarthritis type M15.9 and Coronary artery disease involving [place] coronary artery without angina pectoris, unspecified whether [place] or transplanted heart I25.10 Assessments Encounter Date Diagnosis (ICD Code) Assessment Notes Treat ment Notes Treatment Clinical Notes 04/15/2025 Malignant neoplasm o f colon, unspecified part of colon (ICD-10 - C18.9) There is no sign of disease recurrence or of a new primary tumor. He will continue with surveillance and periodic colonoscopies.He will return to this office on an as-needed basis. 04/15/2025 BPH (benign prostati c hyperplasia) (ICD-10 - N40.0) He is taking 3 medications arises from sleep 4 times a night. He will follow up with primary care and urology. 04/15/2025 Osteoarthritis of multiple joints, unspecified osteoarthritis type (ICD-10 - M15.9) He has mild symptoms arthritis in his knees. He is taking ibuprofen with good relief. 04/15/2025 Coronary artery disease involving [place] coronary artery without angina pectoris, unspecified whether [place] or transplanted heart (ICD-10 - I25.10) Since his last visit he has had no episodes of angina with exertion or at rest. There is no need to change his regimen at this time. Plan Of Treatment Medication Medication Name Sig Start Date Stop Date Notes Zetia 10 MG 1 tablet Orally Once a day Aspirin Adult Low Strength 8 1 MG 1 tablet Orally Once a day Bisoprolol Fumarate 5 MG 1/2 Tablet Oral ly Once a day Rosuvastatin Calcium 40 MG Oral Finasteride 5 MG Oral Nitroglycerin 0.4 MG as directed Sublingual PRN Benadryl PRN Next Appt Details Follow Up: As needed, Reason : ov Progress Notes * Kartik CARRASCODOB: 7 (80 yo M)Acc No.[id number]:04/15/2025 Progress Notes Patient: Kartik PALACIO Provider: Elizabeth Llanes MD :1945 A ge:80 Y S ex:Male Date:04/15/2025 Address: [address] [place], [id number] Pcp:ISMAEL RIDER Subjective: * Chief Complaints: * H istory colon cancerCoronary artery diseaseBenign prostatic hypertrophy * HPI: C OVID-19 Screening: He returns for his last surveillance visit for colon cancer. He feels healthy and well. There have been no cases of malignancy in his immediate family. He continues in fdc without complaints. His daughter had a history of breast cancer 5 years ago but remains in remission. Questions H ave you had any new onset fever, chills, cough, congestion, sore throat, shortness of breath, muscle aches? N o * ROS: G eneral/Constitutional: pain o nly normal aches and pains. C hills d enies.?Fatigue a dmits. F ever d enies. E NT: Decreased hearing d enies. R espiratory: Cough d enies. C ardiovascular: Chest pain with exertion d enies. D yspnea on exertion?denies. S hortness of breath d enies. G astrointestinal: Constipation o ccasional. D ecreased appetite d enies. D iarrhea d enies. H eartburn d enies. N ausea d enies. R ectal bleeding d enies. V omiting d enies. H ematology: bruising [...] dditional Findings: Tobacco Non-User A ggressive non-smoker Jennifer wilson has been to [place] for 43 years. He has an occasional beer. 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 He was born [place], [place]. * Medications: T akingNitroglycerin 0.4 MG Tablet Sublingual as directed Sublingual , Notes to Pharmacist: PRNBenadryl , Notes to Pharmacist: PRNZetia 10 MG Tablet 1 tablet Orally Once a day Aspirin Adult Low Strength 81 MG Tablet Delayed Release 1 tablet Orally Once a day Bisoprolol Fumarate 5 MG Tablet 1/2 Tablet Orally Once a day Rosuvastatin Calcium 40 MG Tablet Oral Finasteride 5 MG Tablet Oral Medication List reviewed and reconciled with the patientTaking Nitroglycerin 0.4 MG Tablet Sublingual as directed Sublingual , Notes to Pharmacist: PRNTaking Benadryl , Notes to Pharmacist: PRNTaking Zetia 10 MG Tablet 1 tablet Orally Once a day Taking Aspirin Adult Low Strength 81 MG Tablet Delayed Release 1 tablet Orally Once a day Taking Bisoprolol Fumarate 5 MG Tablet 1/2 Tablet Orally Once a day Taking Rosuvastatin Calcium 40 MG Tablet Oral Taking Finasteride 5 MG Tablet Oral Medication List reviewed and reconciled with the patient * Allergies: B eta Adrenergic Blockers: suncopeBee StingTape: maxwell[Allergies Verified] Objective: * Vitals: H t: 69, Wt:199, BMI:29.38, BP:120/68, HR:68, Temp:98.0, Wt-k.26. * Examination: G eneral Examination: GENERAL APPEARANCE: p merrill, well nourished, well developed, in no acute distress, calm and relaxed: overweight: man. HEAD: a traumatic, normocephalic. EYES: e [...] sounds normal, no ascites, no organomegaly, no mass, Healed surgical scar. RECTAL EXAM: n ot examined. MUSCULOSKELETAL: e xtremities unremarkable, no clubbing, cyanosis or edema. PERIPHERAL PULSES: n ormal. NEUROLOGIC: a lert and oriented, cranial nerves 2-12 grossly intact, deep tendon reflexes 2+ symmetrical, motor strength normal upper and lower extremities, sensory exam intact. PSYCH: a lert, oriented. Assessment: * Assessment: 1. M alignant neoplasm of colon, unspecified part of colon - C18.9 (Primary) N otes :There is no sign of disease recurrence or of a new primary tumor. He will continue with surveillance and periodic colonoscopies.He will return to this office on an as-needed basis. 2 . B PH (benign prostatic hyperplasia) - N40.0 N otes :He is taking 3 medications arises from sleep 4 times a night. He will follow up with primary care and urology. 3 . O steoarthritis of multiple joints, unspecified osteoarthritis type - M15.9 N otes :He has mild symptoms arthritis in his knees. He is taking ibuprofen with good relief. 4 . C oronary artery disease involving [place] coronary artery without angina pectoris, unspecified whether [place] or transplanted heart - I25.10 N otes :Since his last visit he has had no episodes of angina with exertion or at rest. There is no need to change his regimen at this time. Plan: * Treatment: * Procedure Codes: * Preventive Medicine: Counseling: C are goal follow-up plan: Counseling for abnormal BMI given Y es Above Normal BMI Follow-up D ietary management education, guidance, and counseling, Dietary needs education * Follow Up: A s needed (Reason: ov) * Images: * Sign off status: Completed true * Provider: Elizabeth Llanes MD Date: 0 04/15/2025 Generated for Ольгаi keny/Dajuan/eTransmitting on: 11:39 AM EST History and Physical Notes * HPI (History of Present Illness) Category Sub-Category Detail Notes COVID-19 Screening Questions Have you had any new onset fever, chills, cough, congestion, sore throat, shortness of breath, muscle aches?: No Examination Category Sub-Category Detail Notes General Examination GENERAL APPEARANCE: pleasant , well nourished, well developed, in no acute distress, calm and relaxed: overweight: man HEAD: atraumatic, normocep halic EYES: eomi, perrla, anicte jeramy, conjugate EARS: normal NOSE: septum intact NECK/THYROID: no jugular venous di stention, no carotid bruit, thyroid normal HEART: no clicks, gallops, murmurs, or rubs, regular rhythm, S1, S2 normal, no s3, or vascular bruits LUNGS: clear to auscultatio n ABDOMEN: bowel sounds normal, no ascites, no organomegaly, no mass, Healed surgical scar NEUROLOGIC: alert and oriented, cranial nerves 2-12 [...]
[2025-08-07 10:40] VITALS: BP 128/74; PULSE 56; TEMP 36.2; O2SAT 98; BMI 30.3
--- NOTE | 2025-08-07 10:40 | MHC.PC.OV ---
Vital Signs 08/07/25 10:40 Height 5 ft 9 in Weight 205 lb 2 oz BMI 30.3 BP 128/74 Blood Pressure Location Lt brachial Position Sitting Pulse 56 Pulse Source Pulse Oximeter Temp 97.1 F Temp Source Temporal Artery Scan Pulse Oximetry (%) 98 Oxygen Delivery Method Room Air Intake Visit Reasons: Sore throat Allergies BERNABE Inhibitors (BERNABE INHIBITORS) Allergy (Intermediate, Verified 08/07/25 10:43) DEPRESSION latex (LATEX) Allergy (Intermediate, Verified 08/07/25 10:43) RASH terazosin Allergy (Intermediate, Verified 08/07/25 10:43) hives, swollen lips and hoarseness pravastatin (Pravachol) Allergy (Unknown, Verified 08/07/25 10:43) unknown bee pollen (bee stings) Adverse Reaction (Severe, Verified 08/07/25 10:43) Anaphylaxis Beta-Blockers (Beta-Adrenergic Bloc (BETA-BLOCKERS (BETA-ADRENERGIC BLOC) Adverse Reaction (Intermediate, Verified 08/07/25 10:43) DECREASED HR, DEPRESSION amoxicillin Allergy (Intermediate, Uncoded 08/07/25 10:43) hives, swollen lips, and hoarseness cephlex: levofloxacin Allergy (Intermediate, Uncoded 08/07/25 10:43) hives, swollen lips, and hoarseness clindomycin Allergy (Intermediate, Uncoded 08/07/25 10:43) hives, swollen lips, and hoarseness Medication List - Last Reconciled 08/07/25 by Sepideh Mason MD albuterol sulfate 90 mcg/actuation 2 puffs inhalation Q4-6H PRN aspirin (Adult Low Dose Aspirin) 81 mg PO DAILY bisoprolol fumarate 5 mg PO DAILY blood sugar diagnostic (OneTouch Verio test strips) 1 Strip Once a Day blood-glucose meter (KitCheckuch Verio Meter) to check blood sugars once a day blood-glucose sensor (Smile Family G7 Sensor device) As directed blood-glucose,cnc machine setter,cont (Dexcom G7 Assistant Associate Professor) As directed cyanocobalamin (vitamin B-12) 1,000 mcg PO DAILY diphenhydramine HCl (Benadryl Allergy) 25 mg PO TID PRN ezetimibe (Zetia) 10 mg PO DAILY finasteride 5 mg PO DAILY 90 days fluticasone propionate 50 mcg/actuation (Flonase Allergy Relief) 1 spray intranasal DAILY lancets (OneTouch Delica Lancets) to check blood sugars once a day metformin 500 mg PO BID mupirocin 2% 1 appl topical TID nitroglycerin 0.4 mg sublingual Q5M PRN rosuvastatin 40 mg PO DAILY sacubitril-valsartan 24-26 mg (Entresto) 1 tab PO BID Tobacco use date assessed: 08/07/25 Fall risk assessment: 1 Fall in past year Last assessed Fall Risk: 08/07/25 Dental Screening Dental Screen Date: 08/07/25 Did you have a dental visit in the last 12 months?: Yes Did you have a dental problem in the last 6 months where you did not have access to dental care?: No Was dental information given to patient?: Patient has dentist HPI HPI Comments History of Present Illness Details The patient is a 80-year-old male presenting with a two-day history of sore throat and cough. The cough is dry, non-productive, and he feels it is progressing deeper into his lungs. The cough is constant and has been disrupting his sleep. He reports associated generalized myalgia but denies any fever, chills, or night sweats. He also sustained an arm injury from a slip two days ago. He reports taking [id number] ibuprofen yesterday without relief and is also taking Tylenol 500 mg every 4 to 6 hours for his arm injury. His past medical history is significant for a heart condition. [facility] Medical History (Updated 08/07/25 @ 11:08 by Sepideh Mason MD) Cough SOB (shortness of breath) on exertion Acute bacterial sinusitis Impetigo Multiple pulmonary nodules Decreased diffusion capacity Dyspnea Diabetes mellitus with coincident hypertension Bruised ribs Cellulitis of nose Right leg pain Hyperlipidemia associated with type 2 diabetes mellitus Diabetes mellitus Ischemic cardiomyopathy Pacemaker (~2021) Bradycardia (~2021) History of COVID-19 BPH (benign prostatic hyperplasia) Hypertension Obesity Tubular adenoma of colon COVID-19 vaccine administered History of colon cancer (~2010) PVC (premature ventricular contraction) SVT (supraventricular tachycardia) CAD (coronary artery disease) Surgical History S/P cardiac cath History of pacemaker (~2021) History of coronary artery bypass graft x 3 (~1998) History of hernia repair (~2012) History of colonoscopy History of left knee surgery (~2003) History of right knee surgery History of colostomy (~2010) History of partial colectomy (~2011) History of tonsillectomy History of repair of rotator cuff History of cataract surgery (~2013) History of cardiac cath History of colostomy reversal (~2011) Family History Father Cancer, colon Mother Cancer of breast Cancer of lung Sister Cancer Social History Household Members: Spouse Housing: House Are you a primary care support representative to a significant other at home: No Do you presently have visiting nurse or other home services: No Alcohol intake: current Alcohol intake frequency: 0-2 drinks per day Comment: 4x a week 2 drinks Patient Tobacco Use Status: Never used Tobacco Tobacco use type: Cigarette e-Cigarette/Vaping Use: Never Used Second Hand Smoke Exposure: No service: No Current occupational status: retired Cognitive needs: No Hearing needs: No Vision needs: Yes (glasses) Questionnaire PHQ-9 Over the last 2 weeks, how often have you been bothered by any of the following problems? 1. Little interest or pleasure in doing things: not at all 2. Feeling down, depressed, or hopeless: not at all 3. Trouble falling or staying asleep, or sleeping too much: not at all 4. Feeling tired or having little energy: several days 5. Poor appetite or overeating: not at all 6. Feeling bad about yourself - or that you are a failure or have let yourself or your family down: not at all 7. Trouble concentrating on things, such as reading the newspaper or watching television: not at all 8. Moving or speaking so slowly that other people could have noticed. Or the opposite - being so fidgety or restless that you have been moving around a lot more than usual: not at all 9. Thoughts that you would be better off or of hurting yourself in some way: not at all Total score: 1 Source: Developed by Drs. Ivan Humphrey, Rachel Sigala, Bradley Rojas and colleagues, with an educational henry from [employer]. Thrive Questionnaire Date Thrive assessed: 12/18/24 I am a: Patient What is your living situation today?: I have a steady place to live Within the past 12 months, did the food you bought not last and you didn't have the money to get more?: Never true Within the past 12 months, did you worry whether your food would run out before you got money to buy more?: Never true Do you have trouble paying for medicines?: No Do you have trouble getting transportation to medical appointments?: No Do you have trouble paying your heating and electricity bill?: I choose not to answer this question Do you have trouble taking care of your child, family member or friend?: I choose not to answer this question Do you have trouble with day-to-day activities such as bathing, preparing meals, shopping, managing finances, etc.?: I choose not to answer this question Are you currently unemployed and looking for a job?: No Are you interested in more education?: No Currently or been in a relationship where the following occur: No concerns reported THRIVE Score: 0 AUDIT C Alcohol Use Questionnaire (AUDIT-C) 1. How often do you have a drink containing alcohol?: 2-3 times a week 2. How many drinks containing alcohol do you have on a typical day when you are drinking?: 1 or 2 3. How often do you have six or more drinks on one occasion?: Never Total Score: 3 JOE-7 AMB Questionnaire JOE-7 Date JOE - 7 assessed: 08/30/24 Feeling nervous, anxious, or on edge: 0 = Not at all Not being able to stop or control worryin = Not at all Worrying too much about different things: 0 = Not at all Trouble relaxin = Not at all Being so restless that it is hard to sit still: 0 = Not at all Becoming easily annoyed or irritable: 0 = Not at all Feeling afraid as if something awful might happen: 0 = Not at all Total JOE-7 score (0-4 normal; 5-9 mild; 10-14 moderate; 15-21 severe): 0 Source: Developed by Drs. Ivan Humphrey, Rachel Sigala, Bradley Rojas and colleagues, with an educational henry from [employer]. Review of Systems Const Details: As per HPI. Physical exam (Primary Care) Vital Signs: Last Vital Signs Temp 97.1 F 08/07/25 10:40 Pulse 56 08/07/25 10:40 BP 128/74 08/07/25 10:40 Pulse Ox 98 08/07/25 10:40 Oxygen Delivery Method Room Air 08/07/25 10:40 BMI result Body Mass Index 30.3 Tobacco/Smoking Status: Tobacco use Status Tobacco use date assessed 08/07/25 08/07/25 10:46 Patient Tobacco Use Status Never used Tobacco 08/07/25 10:46 Tobacco use type Cigarette 08/07/25 10:46 e-Cigarette/Vaping Use Never Used 08/07/25 10:46 PHQ-9: PHQ-9 Score PHQ-9: Total score 1 08/07/25 10:46 Thrive Assessment: Date of Thrive Assessment Date Thrive assessed 12/18/24 08/07/25 10:46 Currently or been in a relationship where the following occur: No concerns reported Const Other: Pertinent findings are in BOLD GENERAL APPEARANCE NAD, activity normal for age, well developed/ well nourished, no cyanosis, pallor, or diaphoresis. EYES lids/conjunctiva normal. EARS/NOSE/THROAT Mucous membranes moist, nares normal, lips/teeth normal uvula midline without oral pharyngeal erythema, exudate or swelling TMs normal bilaterally. No lymphangitis/lymphedema. Mildly erythematous tonsils. HEAD/NECK normocephalic atraumatic, no facial trauma, neck is supple. RESPIRATORY respiratory effort normal, speaks in full sentences, no tripod position, no accessory muscle use. Lungs clear to auscultation without rhonchi, wheezes, rales CARDIAC Regular rate and rhythm, no edema. ABDOMINAL Soft, ND/NT. No evidence of fluid wave. No pulsatile masses on exam, rebound tenderness, Nicole sign or pain over Mcburney's point. MUSCLES/EXTREMITIES No abnormal range of motion, no swelling. SKIN Warm, pink and dry. No rashes, dermatoses, petechiae or lesions. NEUROLOGICAL Speech is clear and appropriate. Normal level of consciousness. Gait and coordination are normal. 5/5 strength in all extremities. PSYCH Normal mood and affect. Judgement/competence is appropriate Results AMB Rapid Strep AMB Rapid Strep Negative Last Edit by Randa Sheldon CMA on 08/07/25 10:56 Results Reviewed Results Reviewed: Laboratory Last Values Strep Scn Rapid Clinic Negative 08/07/25 10:51 Coding Level of Care Code Est Pt Level 3 (36948) Diagnoses Sore throat J02.9 Cough R05.9 Time Spent (min) 20 Assessment & Plan Assessment & Plan (1) Sore throat: Code(s): J02.9 - Acute pharyngitis, unspecified Category: Medical Plan: - The patient presents with a two-day history of sore throat, dry cough, and myalgia. - An in-office strep throat swab was negative. - The patient will be sent to the [facility] for a swab to test for COVID, influenza, and RSV. - Robitussin was prescribed for the cough, and the patient was advised to continue Tylenol and ibuprofen for symptomatic management. - If the comprehensive viral panel is positive, the plan is to continue symptomatic treatment. - If the panel is negative, a three-day course of azithromycin will be prescribed. - The patient was advised to return to the clinic, same-day care, or the emergency department if symptoms worsen, such as developing fever, chills, or severe body aches. (2) Cough: Code(s): R05.9 - Cough, unspecified Category: Medical Plan: Same as under Sore throat A/P. Plan I discussed with the patient that his symptoms of cough, sore throat, and muscle aches are likely due to a viral infection, possibly influenza, given its current prevalence. I explained that his in-office strep throat swab was negative, making a bacterial infection less likely and indicating no immediate need for antibiotics. I recommended that he go to the [facility] for a comprehensive swab for COVID-19, influenza, and RSV to get a more definitive diagnosis. I outlined the treatment plan, which includes Robitussin for his cough and continuing with Tylenol and ibuprofen for symptomatic relief. I also explained the contingency plan: if the hospital swabs are negative, I will prescribe a course of azithromycin, but if they are positive for a virus, he will continue with supportive care only. I advised him on return precautions, instructing him to seek further care if he feels more ill or develops fever, chills, or severe body aches. I noted his upcoming follow-up appointment with Dr. Floyd on August 27. Orders: Orders AMB Rapid Strep Screen Today Z13.9 - Encounter for screening, unspecified SARS-CoV2/FLU/RSV Today R09.89 - Other specified symptoms and signs involving the circulatory and respiratory systems Medications: New dextromethorphan HBr (Robitussin CoughGel) 15 mg PO Q6-8H PRN 20 caps 0RF cough
--- OUTSIDE RECORDS SUMMARY | 2025-08-07 11:40 | XMS_ITS | Patient Health Record ---
Author Organization [facility] Address [address] [place] [phone] Care Team Providers Care Tetryl Screen Operator Name Role Phone Steph MARK, Mckinley Primary Care Provider Ivan Powell Unavailable [phone] Allergies Allergen (clinical drug ingredient) Drug/Non Drug [...] r of rehabilitation and disability studies at [facility] Notes: He does not smoke and drinks only occasional beer Problems Problem Type SNOMED Code ICD Code Onset Dates Problem Status W/U Status Risk Notes Problem Digestive system symptom (479612355) Other symptoms involving digestive system (787.99) Active confirmed Problem Right lower quadrant pain (591107367) Abdominal pain, right lower quadrant (789.03) Active confirmed Problem Left lower quadrant pain (458157537) Abdominal pain, left lower quadrant (789.04) Active confirmed Problem Epigastric pain (94416513) Abdominal pain, epigastric (789.06) Active confirmed Problem Abnormal findings diagnostic imaging of liver and biliary tract (203123794) Nonspecific abnormal findings on radiological and other examination of biliary tract (793.3) Active confirmed Problem Family history of malignant neoplasm of gastrointestinal tract (558698715) Family history of malignant neoplasm of gastrointestinal tract (V16.0) Active confirmed Plan Of Treatment Pending Test Test Name Order Date ENDOMYSIAL IGA 07/22/2011 TRANSGLUTAMINASE AB IGA 07/22/2011 TRANSGLUTAMINASE AB IGG 07/22/2011 Future Test Test Name Order Date COLONOSCOPY 07/22/2011 Insurance Providers Payer Name Payer Address Payer Phone Subscriber Number Group Number Insured Name Patient Relationship to Insured Coverage Start Date Coverage End Date [facility] CLAIMS [address] [place] [address] [id number] ROXY CARRASCO Self - patient is [...]
--- OUTSIDE RECORDS SUMMARY | 2025-08-07 11:40 | XMS_ITS | Clinical Summary ---
Author Organization [facility] Address [address] [place] [address] Care Team Providers Care School Leader Name Role Phone Mckinley Choi Primary Care Provider [phone] Allergies Active Allergy Reactions Criticality Noted Date Comments Other Other (See Comments) 08/18/2011 Beta Adrenergic Blockers. Medications LIPITOR 20 mg tablet 08/18/2011 Active aspirin 81 MG EC tablet 08/18/2011 Active tamsulosin (FLOMAX) 0.4 mg Cp24 08/18/2011 Active omeprazole (PriLOSEC) 20 MG capsule 08/18/2011 Active dicyclomine (BENTYL) 20 mg tablet 08/18/2011 Active oxyCODONE (ROXICODONE) 5 MG immediate release tablet 08/18/2011 Active KLONOPIN 1 mg tablet 08/18/2011 Active ZETIA 10 mg tablet 08/18/2011 Active Text: Tylenol CAPS 08/18/2011 Active Active Problems Problem Noted Date Diagnosed Date Malignant neoplasm of colon 08/18/2011 Overview (10/07/2014): Colon Cancer Social History Tobacco Use Types Packs/Day Years Used Date Smoking Tobacco: Never Assessed Sex and Gender Information Value Date Recorded Sex Assigned at Not on file Legal Sex Male 1:09 AM EST Gender Identity Not on file Sexual Orientation Not on file Plan of Treatment Not on file Care Teams School Leader Relationship Specialty Start Date End Date Mckinley Choi [address] [place] [address] [address] PCP - General 06/17/14
--- OUTSIDE RECORDS SUMMARY | 2025-08-07 11:40 | XMS_ITS | Encounter Summary ---
Author Organization [facility] Address [address] [place] [address] Care Team Providers Care Training Facilitator Name Role Phone Mckinley Choi Primary Care Provider [phone] Encounter Details Date Type Department Care Team (Late st Contact Info) Description 08/18/2011 Clinical Conversion Encounter [facility] Division of Colon Rectal Surgery [facility] Colon Rectal Surgery [address] [place] [address] Sivan Mujica, RN Social History Tobacco Use Types Packs/Day Years Used Date Smoking Tobacco: Never Assessed Sex and Gender Information Value Date Recorded Sex Assigned at Not on file Legal Sex Male 1:09 AM EST Gender Identity Not on file Sexual Orientation Not on file documented as of this encounter Progress Notes * Sivan Mujica RN - 09/21/2014 8:28 AM EST [id number],BERN[place], [place]. COLON-RECTAL SURGERY LORRAINE CARRASCOVANESSA Coats 08/18/2011 # [id number] : 1945 Second Visit ID: [id number] Visit ID: [id number] I was asked to see Roxy by Dr. Masters. He has a colostomy that is right in the middle of his abdomen. He had this done at [facility]. He asked me to help him change his appliance as his gas filter has stool on it, and he did not like the smell of it and he would be driving home for two hours. He seemed very anxious about his stoma. He states he still has visiting nurses coming in to help him change the appliance as he just has started to look at it. I did discuss with him that he will need to become more independent with this as the visiting nurses will be leaving at some point. His stoma measures 1-3/4 inches. He did have some minor irritation peristomally. It appears that it could be from removing the appliance. I did apply some Stomahesive powder and showed him and his how to do so. I gave them order numbers and an [employer] catalog, and showed them how to order the Stomahesive powder. He uses a one-piece Coloplast appliance. He denies any leaks or accidents. He is changing his appliance twice a week. He states he empties it a few times a day. We can follow up with him as needed, and he knows to call if he has any issues. Sivan Mujica RN, CWOCN [phone] CS:[id number] J: [id number] CC: SHAHZAD ABRAHAM, <Referring> Mckinley Choi MD, <Primary Care Physician> THIS DOCUMENT WAS ELECTRONICALLY AUTHENTICATED BY Sivan Mujica RN, CWOCN ON 08/19/2011 15:02:36 documented in this encounter Plan of Treatment Not on file documented as of this encounter Visit Diagnoses Not on filedocumented in this encounter Care Teams Training Facilitator Relationship Specialty Start Date End Date Mckinley Choi [address] [place] [id number] PCP - General 06/17/14 documented as of this encounter
--- OUTSIDE RECORDS SUMMARY | 2025-08-07 11:40 | XMS_ITS | Patient Health Record ---
Author Organization Ivan Llanes III, MD Address [address] [place] [address] Care Team Providers Care Millwright Apprentice Name Role Phone ISMAEL RIDER Primary Care [...] Problem Status W/U Status Risk Notes Problem [id number] Obesity (E66.9) Active confirmed He has lost 3 pounds. We discussed diet and nutrition today. We reviewed his weight loss strategy. We made a plan to lose weight at a rate of one half of a pound per week. Problem [id number] BPH (benign prostatic hyperplasia) (N40.0) Active confirmed He is taking 3 medications arises from sleep 4 times a night. He will follow up with primary care and urology. 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 He is taking ibuprofen with good relief. Problem [id number] Erythrocytosis (D75.1) Active confirmed Numerous recent CBC determinations show his hematocrit to be normal. Problem [id number] Coronary artery disease involving [place] coronary artery without angina pectoris, unspecified whether [place] or transplanted heart (I25.10) Active confirmed Since his las t visit he has had no episodes of angina with exertion or at rest. There is no need to change his regimen at this time. Problem 525419898 Malignant neoplasm of colon, unspecified part of colon (C18.9) Active confirmed There is no sign of disease recurrence or of a new primary tumor. He will continue with surveillance and periodic colonoscopies.He will return to this office on an as-needed basis. Problem 177059650 Hyperlipidemia type II (E78.01) Active confirmed His [...] Date Provider Diagnosis Ivan Llanes III, MD [address] [place] [address] [place] [address] 04/15/2025 Ivan Llanes Malignant neoplasm o f colon, unspecified part of colon C18.9 ; BPH (benign prostatic hyperplasia) N40.0 ; Osteoarthritis of multiple joints, unspecified osteoarthritis type M15.9 and Coronary artery disease involving [place] coronary artery without angina pectoris, unspecified whether [place] or transplanted heart I25.10 Assessments Encounter Date [...] good relief. 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
--- OUTSIDE RECORDS SUMMARY | 2025-08-07 11:40 | XMS_ITS | Clinical Summary ---
Author Organization [facility] Address [address] [address] Phone Care Team Providers Care Product/Industry Consultant Name Role Phone Mckinley Choi MD Primary Care Provider [phone] Allergies Active Allergy Reactions Criticality Noted Date [...] recently seen in the emergency room at [facility] for symptomatic PSVT with HR 180's. [...] hyperplasia 07/06/2017 Coronary artery disease invo lving [place] coronary artery of [place] heart without angina pectoris 07/06/2017 Overview (12/09/2017): [...] PM EST): He was recently admitted to [facility] this past June with an episode [...] PM EST): Normal LFTs on his admission [facility] in June --He will continue his [...] file Insurance MEDICARE PART A & B [employer] MEDEX SUPPLEMENT MEDICARE PART A & B [employer] MEDEX SUPPLEMENT MEDICARE PART A & B [employer] MEDEX SUPPLEMENT [place] MEDICARE PART A & B [employer] MEDEX SUPPLEMENT MEDICARE PART A & B [facility] MEDEX SUPPLEMENT MEDICARE PART A & B [employer] MEDEX SUPPLEMENT MEDICARE PART A & B [employer] MEDEX SUPPLEMENT MEDICARE PART A & B [employer] MEDEX SUPPLEMENT MEDICARE PART A & B [employer] MEDEX SUPPLEMENT Care Teams Product/Industry Consultant Relationship Specialty Start Date End Date Mckinley Choi MD NPI: [id number] [place] [address] [place] [address] PCP - General Internal Medicine 01/09/18 Additional Source Comments The information contained in this document represents components of the legal health record. It is not the complete legal health record.[facility]
--- OUTSIDE RECORDS SUMMARY | 2025-08-07 11:40 | XMS_ITS | Encounter Summary ---
Author Organization [facility] Address [address] [facility] [address] [place] [address] Phone Care Team Providers Care Radiological Defense Officer Name Role Phone Mckinley Choi MD Primary Care Provider Christie Floyd MD Primary Care Provider [phone] Mckinley Choi MD Primary Care Provider [phone] Reason for Referral * MRI/CAT Scan - Closed Specialty Diagnoses / Procedures Referred By Bari nicole Referred To Contact Radiology Diagnoses Atherosclerosis of [place] coronary artery of [place] heart without angina pectoris Procedures NC Myocardial Perfusion Stress Single [place] Myocardial Perfusion Exercise Multiple Wandy Bridges NP Phone: tel: [email or web address] Referral ID Status Reason Start Date Expiration Date Visits Re quested Visits Authorized [id number] Closed 10/21/2017 10/21/2018 1 1 Encounter Details Date Type Department Care Team (Latest Contact Info) Description 11/02/2017 Ancillary Orders [facility] [address], [address] [place] [address] Wandy Bridges NP [address] [place], [place] [id number] [email or web address] Atherosclerosis of [place] coronary artery [place] heart without angina pectoris Social History Tobacco [...] EKG reviewed with Dr. Case. Wandy Bridges CAKE PRESS OPERATOR . Stress Function Comments Post-stress ejection [...] ventricular perfusion is normal. us Wandy Bridges CAKE PRESS OPERATOR CV NM CARDIAC Final Re sult documented in this encounter Visit Diagnoses Diagnosis Atherosclerosis of [place] coronary artery of [place] heart without angina pectoris Atherosclerosis of [place] coronary artery of [place] heart without angina pectoris documented in this encounter Care Teams Radiological Defense Officer Relationship Specialty Start Date End Date Mckinley Choi MD [address] [place] [address] Dr [address] [place] [id number] PCP - General 05/26/17 12/08/17 Christie Floyd MD [address] [place] [address] [address] [place] [phone] PCP - General Internal Medicine 12/09/17 01/08/18 Mckinley Choi MD [address] [place] [place] [id number] PCP - General Internal Medicine 01/09/18 documented as of this encounter Additional Source Comments The information contained in this document represents components of the legal health record. It is not the complete legal health record.[facility]
== END 2025-08-07 11:03 | disposition home or self-care (01) ==
LOC: HO.HMCH 10:26
PROVIDERS: PCP Internal Medicine; Visit Provider Internal Medicine
DX: J02.9 Acute pharyngitis, unspecified (principal); R05.9 Cough, unspecified; Z13.9 Encounter for screening, unspecified